=== PATIENT | male | born 1955 | race Caucasian/White ===

== ENCOUNTER 2017-04-21 06:53 | Day surgery (SDC) | payer OTHER ==
[2017-04-21] VITALS (11 sets, daily range): BP systolic 126–149; BP diastolic 64–82
[~2017-04-21] VITALS: Ht 193 cm; Wt 104.3 kg
[~2017-04-21 06:53] MED LIST: ACET-93 PO; ASP81TEC PO; ASPI-983 PO; ASPI-999 PO; CLOP75TA69 PO; GABA-488 PO; LISI10TA2 PO; METF500T4 PO; METO-333 PO; MTF500T PO; MULT-608 PO; NAPR500T4 PO; NF-ESOM40C PO; SILD50TA PO; SMV20T PO; VARE1TAB22 PO
[2017-04-21] MEDS ORDERED: HEParin (CATH LAB) 2,000 ML IV ONE (07:01)
[2017-04-21] MEDS ORDERED: LIDOCAINE 1% INJ 50 ML (XYLOCAINE) VIAL ONE (07:01)
[2017-04-21] MEDS ORDERED: NS IV 1000 ML 1,000 ML ONE (07:01)
[2017-04-21] MEDS ORDERED: NS IV 1000 ML 1,000 ML IV SCH ×2 (07:15→10:59)
[2017-04-21 07:32] LABS: HEMOGLOBIN 14.4 G/DL (13.3-17.7); RED BLOOD COUNT 4.45 10^6/uL (4.35-5.85); WHITE BLOOD COUNT 8.2 10^3/uL (4.3-11.0)
[2017-04-21 07:40] LABS: INR 1.1 (0.8-1.4); PROTHROMBIN TIME PATIENT 13.9 SEC (12.2-14.7)
[2017-04-21 07:48] LABS: ALANINE AMINOTRANSFERASE 30 U/L (0-55); ALBUMIN 4.3 GM/DL (3.2-4.5); ALKALINE PHOSPHATASE 56 U/L (40-136); BILIRUBIN,TOTAL 0.6 MG/DL (0.1-1.0); BUN/CREATININE RATIO 22; CALCIUM 9.4 MG/DL (8.5-10.1); CARBON DIOXIDE 24 MMOL/L (21-32); CHLORIDE 104 MMOL/L (98-107); CHOLESTEROL 118 MG/DL (< 200); CREATININE SERUM 1.09 MG/DL (0.60-1.30); GFR ESTIMATED > 60; GLUCOSE 164 MG/DL (70-105); HDL CHOLESTEROL 28 MG/DL (40-60); POTASSIUM 3.9 MMOL/L (3.6-5.0); SODIUM 139 MMOL/L (135-145); TOTAL PROTEIN 7.9 GM/DL (6.4-8.2); TRIGLYCERIDES 187 MG/DL (<150); VLDL CHOLESTEROL 37 MG/DL (5-40)
[2017-04-21] MEDS ORDERED: METF500T4 PO (07:50)
[2017-04-21] MEDS ORDERED: SERT50TA2 PO (07:50)
[2017-04-21] MEDS ORDERED: diphenhydrAMINE 50 MG/ML INJ (BENADRYL) ONE (07:59)
[2017-04-21] MEDS ORDERED: MIDAZOLAM 5 MG/5 ML (VERSED) VIAL ONE (07:59)
[2017-04-21] MEDS ORDERED: fentaNYL INJECTION 100 MCG/2 ML AMP ONE (07:59)
[2017-04-21] MEDS ORDERED: NITROGLYCERIN DRIP 25 MG/D5W 250 ML IV ONE (08:36)
[2017-04-21] MEDS ORDERED: HEParin 1000 UNIT/ML (10ML VIAL) FOR BOLUS ONE (08:36)
[2017-04-21] MEDS ORDERED: CLOPIDOGREL 300 MG (PLAVIX) TABLET PO ONE (10:36)
[2017-04-21] MEDS ORDERED: ASPIRIN 81 MG CHEW (CHILDREN'S ASA) ONE (10:36)
--- NOTE | 2017-04-21 10:59 | Cardiac Procedure Note-CS/ASA ---
Pre-Procedure Note Pre-Op Procedure Note H&P Reviewed The H&P was reviewed, patient examined and no changes noted. Date H&P Reviewed: Apr 21, 2017 Time H&P Reviewed: 08:00 Conscious Sedation Pre-Proced Time Reviewed: 08:00 ASA Class: 3 Airway Mallampati Classification: (upper mattaponi appropriate class) I. II. III, IV Lungs Heart ASA score ASA 1: a normal healthy patient ASA 2: a patient with a mild systemic disease (mid diabetes, controlled hypertension, obesity ASA 3: a patient with a severe systemic disease that limits activity (angina , COPD, prior Myocardial infarction) ASA 4: a patient with an incapacitating disease that is a constant threat to life (CHF, renal failure) ASA 5: a moribund patient not expected to survive 24 hrs. (ruptured aneurysm) ASA 6: a declared brain patient whose organs are being harvested. For emergent operations, add the letter E after the classification Grade 3 Sedation Plan: Analgesia, Amnesia, Plan communicated to team members, Discussed options with patient/fam, Discussed risks with patient/fam Note The patient is an appropriate candidate to undergo the planned procedure, sedation, and anesthesia. The patient immediately re-assessed prior to indication. JOSE SEALS MD FACP FAC CCDS Apr 21, 2017 10:59
[2017-04-21] MEDS ORDERED: GABAPENTIN 300 MG (NEURONTIN) CAP PO PRN (11:00)
[2017-04-21] MEDS ORDERED: PATIENT MAY USE OWN MEDS, ALL PO SCH (11:00)
[2017-04-21] MEDS ORDERED: ACETAMINOPHEN 325 MG TABLET/CAPLET (TYLENOL) PO PRN (11:00)
--- NOTE | 2017-04-21 13:32 | CARDIAC CATHETERIZATION ---
DATE OF SERVICE: 04/21/2017 PERIPHERAL ANGIOGRAPHY AND INTERVENTION REPORT The patient is a 62-year-old man with a known history of peripheral arterial disease. In 2016, he has had percutaneous intervention to the left superficial femoral artery consisting of overlapping Supera stents. He is known to have 3 overlapping Supera, 5.5 x 150 mm stents in the left femoral artery. He has been having leg claudication, significantly more on the left side. Peripheral angiography was carried out today. Informed consent was obtained for abdominal aortic and peripheral angiography and possible ad hoc peripheral intervention. PROCEDURE: He was brought to the cardiac catheterization laboratory in a fasting state. Right groin was prepared and draped in the usual sterile fashion. Lidocaine 1% was used for local anesthesia. Modified Seldinger technique was used to advance a 6-Danish sheath into the right femoral artery. We advanced a 6-Danish pigtail catheter and placed it in the abdominal aorta at the level of L1 and abdominal aortic angiography was performed. We then pulled the catheter back to the level just above the aortoiliac bifurcation and left lower limb arterial circulation angiography was carried out with runoff down to the level of the ankle. We then proceeded with selective angiography of the left superficial femoral artery. For this purpose, we used a crossover catheter and we were able to advance a 0.035 inch wire into the left superficial femoral artery and the crossover catheter was removed. Over the catheter, we exchanged the short sheath for a 55 cm long sheath, which was advanced to the level of the proximal superficial femoral artery. We then used a micro catheter that was advanced over 0.035 inch wire and the microcatheter was placed in the proximal to mid left superficial femoral artery and we carried out selective angiography of the left superficial femoral artery, which indicated that there was complete occlusion within the stented portion of the left superficial femoral artery. PERCUTANEOUS INTERVENTION TO THE LEFT SUPERFICIAL FEMORAL AND THE LEFT POPLITEAL ARTERIES: Following completion of the diagnostic procedure, we kept the microcatheter in place and advanced a Command wire through the microcatheter. We were able to advance the advance wire across the complete occlusion in the mid and distal portion of the standard portion of the left superficial femoral artery with moderate difficulty. The tip of the wire was placed in the left peroneal artery. We removed the microcatheter and carried out balloon angioplasty in multiple locations with a 4-mm balloon. This balloon angioplasty included the entire length of the occluded portion of the stent. Subsequent angiography revealed that there was still significant stenosis in the mid portion of the stent placed in 2016. We then carried out balloon angioplasty successfully with 5.0 mm and 6.0 mm balloons, but the result remained suboptimal. It appeared that there was a focal stenosis of the standard portion of the left superficial femoral artery. At this spot, we placed an Absolute Pro 6.0 x 40 mm stent and this was carefully deployed and subsequently post-dilated with a 6 mm balloon. This resulted in good antegrade flow distally. There was area of stenosis and probable dissection in the left popliteal artery. Here, we carried out balloon angioplasty with 6.0 x 40 mm at different spots. Following long balloon inflations, the stenosis and the left popliteal was reduced from 90% to less than 30% and the dissection appeared well tacked and the distal flow was good. Because of good results in the left popliteal artery, we chose not to put a stent in the popliteal artery. CONCLUSIONS: Complete occlusion(intra-stent) within the left superficial femoral artery to which successful balloon angioplasty and stenting (Absolute Pro 6.0 x 40 mm) was carried out with reduction of stenosis to less than 30% throughout the stented vessel. Also, there was 90% stenosis within the proximal and mid popliteal artery to which successful balloon angioplasty was carried out for reduction of stenosis to less than 30%. Job ID: [id number] DocumentID: [id number] Dictated Date: 04/21/2017 10:43:30 Orthopedic Shoe Fitter Date: 04/21/2017 12:47:13 Dictated By: JOSE SEALS MD, MA, FACP, FACC, MTDD
[2017-04-21] MEDS: inSUlin (REGULAR) HUMAN 1 UNIT/0.01 ML (CHARGE PER UNIT) SC SCH ×2 (16:55→20:30)
[2017-04-21] MEDS: meTOprolol TARTRATE 25 MG (LOPRESSOR) TABLET PO SCH (20:34)
[2017-04-21] MEDS ORDERED: SIMvastatin 20 MG (ZOCOR) TAB PO SCH (21:00)
[2017-04-22] VITALS: BP 123/74
[2017-04-22 04:15] VITALS: BP 134/73
[2017-04-22] MEDS: inSUlin (REGULAR) HUMAN 1 UNIT/0.01 ML (CHARGE PER UNIT) SC SCH (05:48)
[2017-04-22 05:53] LABS: HEMOGLOBIN 13.7 G/DL (13.3-17.7); MEAN PLATELET VOLUME 10.9 FL (7.4-10.4); RED BLOOD COUNT 4.26 10^6/uL (4.35-5.85); RED CELL DISTRIBUTION WIDTH 14.1 % (10.0-14.5); WHITE BLOOD COUNT 5.5 10^3/uL (4.3-11.0)
[2017-04-22 06:13] LABS: BUN/CREATININE RATIO 20; CALCIUM 8.7 MG/DL (8.5-10.1); CARBON DIOXIDE 22 MMOL/L (21-32); CHLORIDE 104 MMOL/L (98-107); GFR ESTIMATED > 60; GLUCOSE 122 MG/DL (70-105); POTASSIUM 4.1 MMOL/L (3.6-5.0); SODIUM 138 MMOL/L (135-145)
[2017-04-22] MEDS ORDERED: PANTOPRAZOLE 40 MG (PROTONIX) TAB PO SCH (07:00)
[2017-04-22] MEDS ORDERED: MULTIVIT W/MINERALS TAB (THERAGRAN M) PO SCH (07:00)
--- NOTE | 2017-04-22 07:56 | Progress Note-Cardiology ---
Cardiology SOAP Progress Note Objective: I&O/Vital Signs Vital Sign - Last 12Hours 04/21/17 04/22/17 04/22/17 04/22/17 20:54 00:00 01:00 04:15 Temp 98.0 98.0 97.1 Pulse 67 74 71 68 Resp 14 18 20 B/P (MAP) 132/64 (86) 123/74 (90) 134/73 (93) Pulse Ox 92 94 96 O2 Delivery Room Air Room Air Room Air Intake and Output 04/22/17 00:00 Intake Total 1820 ml Balance 1820 ml Weight (Pounds): 230 Weight (Ounces): 0.0 Weight (Calculated Kilograms): 104.152176 Results/Procedures: Labs Laboratory Tests 04/21/17 15:24: Glucometer 89 04/21/17 20:14: 04/22/17 05:16: Glucometer 146H 04/22/17 05:41: White Blood Count 5.5, Red Blood Count 4.26L, Hemoglobin 13.7, Hematocrit 38L, Mean Corpuscular Volume 90, Mean Corpuscular Hemoglobin 32, Mean Corpuscular Hemoglobin Concent 36, Red Cell Distribution Width 14.1, Platelet Count 107L, Mean Platelet Volume 10.9H, Sodium Level 138, Potassium Level 4.1, Chloride Level 104, Carbon Dioxide Level 22, Anion Gap 12, Blood Urea Nitrogen 16, Creatinine 0.80, Estimat Glomerular Filtration Rate > 60, BUN/Creatinine Ratio 20, Glucose Level 122H, Calcium Level 8.7 A/P: Assessment: PAD - H/O stenting (3 overlapping Supera 5.5x150 mm stents) of the L sup fem on 08/21/15 with 3-vessel distal runoff. On the R, he is known to have multiple 50% stenoses of the sup fem and occlusion of the R peroneal. Per most recent peripheral angio of 04-21-17: Complete occlusion(intra-stent) within the left superficial femoral artery to which successful balloon angioplasty and stenting (Absolute Pro 6.0 x 40 mm) was carried out with reduction of stenosis to less than 30% throughout the stented vessel. Also, there was 90% stenosis within the proximal and mid popliteal artery to which successful balloon angioplasty was carried out for reduction of stenosis to less than 30%. CAD. Cath of 05/07/[address] Goel showed 1-V disease (LCx). MPI of 09/25/15 shows no ischemia or infarction (LVEF 54%) Exertional shortness of breath Hypertension DM II Chronic tobacco use, continuing Hyperlipidemia, treated with statins and managed by his pcp Sleep apnea suspected, but he refuses studies COPD Mild carotid arterial disease on carotid u/s of 10/19/15 JAVIER VALLES Apr 22, 2017 07:56
[2017-04-22] MEDS: meTOprolol TARTRATE 25 MG (LOPRESSOR) TABLET PO SCH (07:58)
[2017-04-22 08:00] VITALS: BP 156/81
--- NOTE | 2017-04-22 08:29 | Progress Note-Cardiology ---
Cardiology SOAP Progress Note Subjective: No leg discomfort or groin discomfort Denies cp or palp or syncope Objective: I&O/Vital Signs Vital Sign - Last 12Hours 04/21/17 04/22/17 04/22/17 04/22/17 20:54 00:00 01:00 04:15 Temp 98.0 98.0 97.1 Pulse 67 74 71 68 Resp 14 18 20 B/P (MAP) 132/64 (86) 123/74 (90) 134/73 (93) Pulse Ox 92 94 96 O2 Delivery Room Air Room Air Room Air Intake and Output 04/22/17 00:00 Intake Total 1820 ml Balance 1820 ml Weight (Pounds): 230 Weight (Ounces): 0.0 Weight (Calculated Kilograms): 104.502748 Groin site without hematoma: Yes Condition: DP/PT pulses palpable Bruising: mild bruising Constitutional: AAO x 3, well-developed, well-nourished Respiratory: No accessory muscle use, lungs clear to percussion, other (good bilat air entry; somewhat prolonged exp phase) Cardiovascular: regular rate-rhythm, S1 and S2, systolic murmur Gastrointestional: No tender, soft, No guarding, No rebound, audible bowel sounds Extremities: No clubbing, No cyanosis, No significant edema Neurologic/Psychiatric: oriented x 3, grossly intact, power is 5/5 both on sides Skin: No rash on exposed areas, No ulcerations on exposed areas Results/Procedures: Labs Laboratory Tests 04/21/17 15:24: Glucometer 89 04/21/17 20:14: 04/22/17 05:16: Glucometer 146H 04/22/17 05:41: White Blood Count 5.5, Red Blood Count 4.26L, Hemoglobin 13.7, Hematocrit 38L, Mean Corpuscular Volume 90, Mean Corpuscular Hemoglobin 32, Mean Corpuscular Hemoglobin Concent 36, Red Cell Distribution Width 14.1, Platelet Count 107L, Mean Platelet Volume 10.9H, Sodium Level 138, Potassium Level 4.1, Chloride Level 104, Carbon Dioxide Level 22, Anion Gap 12, Blood Urea Nitrogen 16, Creatinine 0.80, Estimat Glomerular Filtration Rate > 60, BUN/Creatinine Ratio 20, Glucose Level 122H, Calcium Level 8.7 Laboratory Tests 04/21/17 07:22 04/22/17 05:41 A/P: Assessment: PAD - H/O stenting (3 overlapping Supera 5.5x150 mm stents) of the L sup fem on 08/21/15 with 3-vessel distal runoff. On the R, he is known to have multiple 50% stenoses of the sup fem and occlusion of the R peroneal. Per most recent peripheral angio of 04-21-17: Complete occlusion (intra-stent) within the left superficial femoral artery to which successful balloon angioplasty and stenting (Absolute Pro 6.0 x 40 mm) was carried out with reduction of stenosis to less than 30% throughout the stented vessel. Also, there was 90% stenosis within the proximal and mid popliteal artery to which successful balloon angioplasty was carried out for reduction of stenosis to less than 30%. CAD. Cath of 05/07/[address] Goel showed 1-V disease (LCx). MPI of 09/25/15 shows no ischemia or infarction (LVEF 54%) Exertional shortness of breath Hypertension DM II Chronic tobacco use, continuing Hyperlipidemia, treated with statins and managed by his pcp Sleep apnea suspected, but he refuses studies COPD Mild carotid arterial disease on carotid u/s of 10/19/15 Plan: * We had a long discussion regarding the findings at angio, interventions, undertaken and future plan * The most important part of his management at this time is risk factor modification, in particular immediate and complete smoking cessation. This was discussed in detail and emphasized * We discussed pros and cons of current regimen * We advised compliance with meds and clinical f/u * Close clinical f/u is recommended for now * I also spoke in detail with his and answered questions JOSE SEALS MD FACP FAC CCDS Apr 22, 2017 8:29 am
--- NOTE | 2017-04-22 08:35 | Discharge Inst-Post CATH ---
Discharge Inst-CATH Post Cardiac Cath D/C Inst Follow Up/Plan F/u with Dr Boyce in one week CARDIAC CATH DISCHARGE INSTRUCTIONS *Hold Metformin for 48 hours post heart cath. ACTIVITY * Go Home directly and rest. * Limit activity of the leg (or wrist if it was used) for 7 days including aerobics, swimming, jogging, bicycling, etc. * Restrict stair-climbing for 7 days if possible, if not, climb up with your non -cath leg, then bring together on the same step. * Avoid lifting, pushing, pulling or excessive movement of the affected extremity for 7 days. * Customary sexual activity may be resumed after 2 days-use caution not to use a position that strains or causes pain to the affected extremity. * No driving for 24 hours. * NO SMOKING. * Avoid straining for bowel movements for 7 days. * Gentle walking on level ground is allowed. * Returning to work will depend on the type of procedure and the results. Your doctor will discuss this with you. CALL YOUR DOCTOR FOR ANY OF THE FOLLOWING: *If bleeding from the puncture site occurs- Apply gentle pressure to site with clean cloth and call your doctor or EMS. * If a knot or lump forms under the skin, increases in size, or causes pain. * If bruising appears to be worsening or moving further down your leg instead of disappearing. * Temperature above 101 F. CARE OF YOUR GROIN INCISION; * Bruising or purple discoloration of the skin near the puncture site is common. * You may shower only, no bathtub bathing for 5 days. Be careful to avoid slipping as your leg may feel stiff. * If a closure device was used on your femoral artery, please see the attached guide regarding care of the device and your leg. * REMOVE the dressing from your groin the next day after your procedure in the shower. CARE OF YOUR WRIST INCISION; * Bruising or purple discoloration of the skin near the puncture site is common. * You may shower. * DO NOT submerge wrist. * Remove dressing in 24 hours. JOSE BOYCE MD [facility] CCDS Apr 22, 2017 08:35
--- NOTE | 2017-04-22 08:35 | Discharge Inst-Cardiology ---
Discharge Inst-Cardiac Discharge Medications Continued Medications: Aspirin (Aspirin) 81 Mg Tab.chew 81 MG PO DAILY, #30 TAB 5 Refills Clopidogrel Bisulfate (Plavix) 75 Mg Tablet 75 MG PO DAILY, #30 TAB 5 Refills Esomeprazole Magnesium (Nexium) 40 Mg Cap 40 MG PO DAILY Gabapentin (Gabapentin) 300 Mg Capsule 300 MG PO TID PRN for PAIN LAST FILLED 05-31-15 Lisinopril (Lisinopril) 10 Mg Tablet 10 MG PO DAILY Metformin HCl (Metformin HCl) 500 Mg Tablet 500 MG PO BID, TAB Metoprolol Tartrate (Lopressor 25 Mg Tab) 25 Mg Tablet 25 MG PO BID Multivitamins (Multiple Vitamin) 1 Tab Tablet 1 TAB PO DAILY Naproxen (Naproxen) 500 Mg Tablet 500 MG PO BID Sertraline HCl (Zoloft) 50 Mg Tablet 50 MG PO DAILY, TAB Sildenafil Citrate (Viagra) 50 Mg Tablet 50 MG PO DAILY PRN for ED Simvastatin (Zocor) 20 Mg Tab 20 MG PO HS Patient Instructions Patient Instructions: HOLD METFORMIN UNTIL THE EVENING OF 04/23/17 Activity & Diet Discharge Diet: ADA Diet (1500 kCal) JOSE SEALS MD FACP FACC CCDS Apr 22, 2017 08:35
[2017-04-22] MEDS ORDERED: lisINopril 10 MG (PRINIVIL) TABLET PO SCH (09:00)
[2017-04-22] MEDS ORDERED: ASPIRIN 81 MG CHEW (CHILDREN'S ASA) PO SCH (09:00)
[2017-04-22] MEDS ORDERED: NON-FORMULARY MEDICATION 1 EA EA (Multivitamins (Multiple Vitamin) 1 TAB) PO SCH (09:00)
[2017-04-22] MEDS ORDERED: CLOPIDOGREL 75 MG (PLAVIX) TABLET PO SCH (09:00)
[2017-04-22] MEDS ORDERED: SERTRALINE 50 MG (ZOLOFT) TABLET PO SCH (09:00)
[2017-04-22] MEDS ORDERED: NON-FORMULARY MEDICATION 1 EA EA (Esomeprazole Magnesium (Nexium) 40 MG) PO SCH (09:00)
== END 2017-04-22 10:33 | disposition home or self-care (01) ==
LOC: CATH 06:53 → SURG 11:01 → 4TH 15:21 → CATH 04-22 10:33
PROVIDERS: ATTEND Nurse Practitioner Family
DX: I70.212 Atherosclerosis of native arteries of extremities with intermittent claudication, left leg (principal); T82.856A Stenosis of peripheral vascular stent, initial encounter; I25.10 Atherosclerotic heart disease of native coronary artery without angina pectoris; E11.9 Type 2 diabetes mellitus without complications; E78.5 Hyperlipidemia, unspecified; I10 Essential (primary) hypertension; G47.30 Sleep apnea, unspecified; F17.210 Nicotine dependence, cigarettes, uncomplicated; Z79.82 Long term (current) use of aspirin; Z79.84 Long term (current) use of oral hypoglycemic drugs; Z79.899 Other long term (current) drug therapy
CPT/HCPCS: 36415; 75625; 80048; 80053; 80061; 82962; 85027; 85610; 85730; 87081; 93005

== ENCOUNTER 2019-06-21 09:07 | Day surgery (SDC) | payer OTHER ==
[2019-06-21] VITALS (8 sets, daily range): BP systolic 144–160; BP diastolic 71–109
[~2019-06-21] VITALS: Ht 193 cm; Wt 101.4 kg
[~2019-06-21 09:07] MED LIST changes: +METF-397 PO; -METF500T4 PO; +NAPR-915 PO; -NAPR500T4 PO; +SERT50TA2 PO
[2019-06-21] MEDS ORDERED: LIDOCAINE 1% INJ 20 ML 20 ML VIAL ONE (09:21)
[2019-06-21] MEDS ORDERED: HEParin (CATH LAB) 2,000 ML IV ONE (09:21)
[2019-06-21] MEDS ORDERED: NS IV 1000 ML 1,000 ML ONE (09:21)
[2019-06-21 09:56] LABS: HEMOGLOBIN 14.9 G/DL (13.3-17.7); MEAN PLATELET VOLUME 11.9 FL (7.4-10.4); RED CELL DISTRIBUTION WIDTH 14.4 % (10.0-14.5); WHITE BLOOD COUNT 6.7 10^3/uL (4.3-11.0)
[2019-06-21] MEDS: NS IV 1000 ML 1,000 ML IV SCH ×3 (10:02→19:39)
[2019-06-21] MEDS ORDERED: CALC-794 PO (10:07)
[2019-06-21 10:08] LABS: PROTHROMBIN TIME PATIENT 13.7 SEC (12.2-14.7)
[2019-06-21 10:12] LABS: CHLORIDE 104 MMOL/L (98-107); SODIUM 140 MMOL/L (135-145)
[2019-06-21 10:13] LABS: ALBUMIN 4.2 GM/DL (3.2-4.5)
[2019-06-21 10:14] LABS: CALCIUM 9.4 MG/DL (8.5-10.1); TRIGLYCERIDES 236 MG/DL (<150); VLDL CHOLESTEROL 47 MG/DL (5-40)
[2019-06-21 10:15] LABS: GLUCOSE 172 MG/DL (70-105)
[2019-06-21 10:16] LABS: CARBON DIOXIDE 22 MMOL/L (21-32)
[2019-06-21 10:17] LABS: BILIRUBIN,TOTAL 0.6 MG/DL (0.1-1.0)
[2019-06-21 10:19] LABS: ALKALINE PHOSPHATASE 47 U/L (40-136); CHOLESTEROL 124 MG/DL (< 200); CREATININE SERUM 1.11 MG/DL (0.60-1.30); GFR ESTIMATED > 60
[2019-06-21 10:20] LABS: BUN/CREATININE RATIO 15
[2019-06-21 10:21] LABS: HDL CHOLESTEROL 31 MG/DL (40-60)
[2019-06-21 10:22] LABS: ALANINE AMINOTRANSFERASE 30 U/L (0-55)
[2019-06-21] MEDS ORDERED: fentaNYL INJECTION 100 MCG/2 ML AMP ONE (11:54)
[2019-06-21] MEDS ORDERED: MIDAZOLAM 5 MG/5 ML (VERSED) VIAL ONE (11:54)
--- NOTE | 2019-06-21 12:45 | Cardiac Procedure Note-CS/ASA ---
Pre-Procedure Note Pre-Op Procedure Note H&P Reviewed The H&P was reviewed, patient examined and no changes noted. Date H&P Reviewed: Jun 21, 2019 Time H&P Reviewed: 12:44 Conscious Sedation Pre-Proced Time 12:44 ASA Score 3 For ASA 3 and 4: Consider anesthesia and medical clearance. Also, for patients with a history of failed moderate sedation consider anesthesia. Airway Lungs Heart ASA score ASA 1: a normal healthy patient ASA 2: a patient with a mild systemic disease (mid diabetes, controlled hypertension, obesity ASA 3: a patient with a severe systemic disease that limits activity (angina, COPD, prior Myocardial infarction) ASA 4: a patient with an incapacitating disease that is a constant threat to life (CHF, renal failure) ASA 5: a moribund patient not expected to survive 24 hrs. (ruptured aneurysm) ASA 6: a declared brain- patient whose organs are being harvested. For emergent operations, add the letter E after the classification Mallampati Classification Grade 2 Sedation Plan Analgesia, Amnesia, Plan communicated to team members, Discussed options with patient/fam, Discussed risks with patient/fam The patient is an appropriate candidate to undergo the planned procedure, sedation, and anesthesia. The patient immediately re-assessed prior to indication. JOSE SEALS MD FACP FAC CCDS Jun 21, 2019 12:44
[2019-06-21] MEDS ORDERED: HEParin 1000 UNIT/ML (10ML VIAL) FOR BOLUS ONE (13:12)
[2019-06-21] MEDS ORDERED: ASPIRIN 81 MG CHEW (CHILDREN'S ASA) ONE (13:51)
[2019-06-21] MEDS ORDERED: CLOPIDOGREL 300 MG (PLAVIX) TABLET PO ONE (13:51)
--- NOTE | 2019-06-21 14:10 | Cardiology History & Physical ---
HPI-Cardiology Cardiology H&P Date of Admission 06-21-2019 Primary Care Physician Cameron Guy MD Attending Physician Reno Boyce MD [facility] [employer]cds Consulting Physician JOCY New onset claudication of approx a block or less. Right leg worse than left. He has a known h/o PAD and continues to smoke cigs. We advise further eval with a peripheral angiogram with possible ad hoc peripheral intervention. We have discussed the procedures, risks and benefits. He verbalizes understanding and wishes to proceed. No c/o CP, palpitations, syncope or near syncope. No c/o LE swelling. Chronic mild to mod HINOJOSA, which is unchanged in the recent past. Review of Systems-Cardiology Review of Systems Constitutional: No chills, No fever Eyes: No vision change Ears/Nose/Throat: No epistaxis, No recent hearing loss Respiratory: As described under HPI Cardiovascular: As described under HPI Gastrointestinal: No constipation, No diarrhea, No nausea, No vomiting Genitourinary: No dysuria, No hematuria Musculoskeletal: no symptoms reported Skin: No rash on exposed areas, No ulcerations on exposed areas Psychiatric/Neurological: No anxiety, No depression, No seizure, No syncope Hematologic: No bleeding abnormalities ILI-Aovxla-Dntkum Hx Patient Social History Alcohol Use: Denies Use Recreational Drug Use: No Smoking Status: Current Everyday Smoker Type Used: Cigarettes Recent Foreign Travel: No Immunizations Up To Date Date of Influenza Vaccine: Dec 20, 2018 Past Medical History PMH As described under Assessment. Family Medical History Family Medical History: No reported family h/o CAD. Allergies and Home Medications Allergies Coded Allergies: Penicillins (Unverified Allergy, Unknown, 05/06/10) Home Medications Aspirin 81 Mg Tab.chew, 81 MG PO DAILY Prescribed by: RENO BOYCE on 08/21/15 1204 Calcium Carb & Citrate/Vit D3 1 Each Tablet.er, 1 EACH PO DAILY, (Reported) Clopidogrel Bisulfate 75 Mg Tablet, 75 MG PO DAILY Prescribed by: ERNO BOYCE on 08/21/15 1204 Esomeprazole Magnesium 40 Mg Cap, 40 MG PO DAILY, (Reported) Gabapentin 300 Mg Capsule, 300 MG PO TID PRN for PAIN, (Reported) LAST FILLED 05-31-15 Lisinopril 10 Mg Tablet, 10 MG PO DAILY, (Reported) Metformin HCl 500 Mg Tablet, 1,000 MG PO BID, (Reported) Metoprolol Tartrate 25 Mg Tablet, 25 MG PO BID, (Reported) Multivitamins 1 Tab Tablet, 1 TAB PO DAILY, (Reported) Naproxen 500 Mg Tablet, 500 MG PO BID, (Reported) Sertraline HCl 50 Mg Tablet, 100 MG PO DAILY, (Reported) Sildenafil Citrate 50 Mg Tablet, 50 MG PO DAILY PRN for ED, (Reported) Simvastatin 20 Mg Tab, 20 MG PO HS, (Reported) Patient Home Medication List Home Medication List Reviewed: Yes Physical Exam-Cardiology Physical Exam Vital Signs/I&O 06/21/19 06/22/19 06/22/19 06/22/19 23:48 00:47 03:21 06:43 Temp 36.4 Pulse 82 77 77 88 Resp 20 18 B/P (MAP) 160/81 (107) 167/90 (115) Pulse Ox 95 96 O2 Delivery Room Air Room Air 06/22/19 06/22/19 08:00 08:55 Temp 36.4 Pulse 75 Resp 12 B/P (MAP) 148/85 (106) Pulse Ox 95 O2 Delivery Room Air Capillary Refill : Constitutional: well-developed, well-nourished HEENT: PERRL, hearing is well preserved, oral hygience is good Neck: No carotid bruit; carotid pulses are 2 + bilaterally Respiratory: No accessory muscle use, No respiratory distress; chest expansion is symmetric, chest is bilaterally symmetric, other (prolonged exp phase with scattered rhonchi) Cardiovascular: regular rate-rhythm; No JVD; S1 and S2 Gastrointestinal: No tender; soft, round, audible bowel sounds Extremities: no lower extremity edema bilateral Neurologic/Psychiatric: grossly intact (moves all extremities) Skin: No rash on exposed areas, No ulcerations on exposed areas Data Review Labs Laboratory Tests 06/21/19 20:21: Glucometer 170H 06/22/19 03:00: White Blood Count 6.5, Red Blood Count 4.43, Hemoglobin 13.9, Hematocrit 40, Mean Corpuscular Volume 90, Mean Corpuscular Hemoglobin 31, Mean Corpuscular Hemoglobin Concent 35, Red Cell Distribution Width 14.6H, Platelet Count 78L, Mean Platelet Volume 11.4H, Sodium Level 138, Potassium Level 3.9, Chloride Level 105, Carbon Dioxide Level 21, Anion Gap 12, Blood Urea Nitrogen 16, Creatinine 0.98, Estimat Glomerular Filtration Rate > 60, BUN/Creatinine Ratio 16, Glucose Level 131H, Calcium Level 8.8 A/P-Cardiology Assessment/Admission Diagnosis Recurrent bilat leg claudication of less than a block, R>L PAD. S/p stenting (3 overlapping Supera 5.5x150 mm stents) of the L sup fem on 08/21/15 with 3-vessel distal runoff. On the R, he is known to have multiple 50% stenoses of the sup fem and occlusion of the R peroneal. Most recent peripheral angio of Apr 21, 2017: complete occlusion (intra-stent) within the left superficial femoral artery to which successful balloon angioplasty and stenting (Absolute Pro 6.0 x 4.0 mm) was carried out with reduction of stenosis to less than 30% throughout the stented vessel. Also, there was 90% stenosis within the prox and mid popliteal artery to which successful balloon angioplasty was carried out for reduction of stenosis to less than 30% CAD. Cath of 05/07/[address] Goel showed 1-V disease (LCx). MPI of 09/25/15 shows no ischemia or infarction (LVEF 54%) Exertional shortness of breath, chronic and unchanged, likely d/t COPD Hypertension DM II Chronic tobacco use, continuing Hyperlipidemia, treated with statins and managed by his pcp Sleep apnea suspected, but he refuses studides COPD Mild carotid arterial disease on carotid u/s of 10/19/15 Admission Status: Observation JAVIER VALLES Jun 21, 2019 14:10
--- NOTE | 2019-06-21 14:17 | Discharge Inst-Cardiology ---
Discharge Inst-Cardiac Discharge Medications Continued Medications: Aspirin (Aspirin) 81 Mg Tab.chew 81 MG PO DAILY, #30 TAB 5 Refills Calcium Carb & Citrate/Vit D3 (Calcium + D3 ER Tablet) 1 Each Tablet.er 1 EACH PO DAILY, TAB Clopidogrel Bisulfate (Plavix) 75 Mg Tablet 75 MG PO DAILY, #30 TAB 5 Refills Esomeprazole Magnesium (Nexium) 40 Mg Cap 40 MG PO DAILY Gabapentin (Gabapentin) 300 Mg Capsule 300 MG PO TID PRN for PAIN LAST FILLED 05-31-15 Lisinopril (Lisinopril) 10 Mg Tablet 10 MG PO DAILY Metformin HCl (Metformin HCl) 500 Mg Tablet 1000 MG PO BID, TAB Metoprolol Tartrate (Lopressor 25 Mg Tab) 25 Mg Tablet 25 MG PO BID Multivitamins (Multiple Vitamin) 1 Tab Tablet 1 TAB PO DAILY Sertraline HCl (Zoloft) 50 Mg Tablet 100 MG PO DAILY, TAB Sildenafil Citrate (Viagra) 50 Mg Tablet 50 MG PO DAILY PRN for ED Simvastatin (Zocor) 20 Mg Tab 20 MG PO HS Discontinued Medications: Naproxen (Naproxen) 500 Mg Tablet 500 MG PO BID Patient Instructions Patient Instructions: Hold Metformin dose on 06/21 and 06/22. Restart the morning of 06/24/2019. Please schedule follow up appointment to see Dr. Boyce in 2 weeks JAVIER VALLES Jun 21, 2019 14:17
--- NOTE | 2019-06-21 14:33 | Cardiology History & Physical ---
HPI-Cardiology Cardiology H&P Date of Admission Primary Care Physician Cameron Guy MD Attending Physician Reno Boyce MD, MA FACP [facility] Consulting Physician JOCY 64 yo man who reports bilat leg discomfort that has been worsening over the last several months and that is brought on with walking a block or less and improves with rest. Right leg worse than left. He has a known h/o PAD and continues to smoke cigs. He verbalizes understanding and wishes to proceed. No c/o CP, palpitations, syncope or near syncope. No c/o LE swelling. Chronic mild to mod HINOJOSA, which is unchanged in the recent past. We advisd further eval with a peripheral angiogram with possible ad hoc peripheral intervention. We discussed the procedures, risks and benefits. He had the procedure done today Review of Systems-Cardiology Review of Systems Constitutional: No chills, No fever Eyes: No vision change Ears/Nose/Throat: No epistaxis, No recent hearing loss Respiratory: As described under HPI Cardiovascular: As described under HPI Gastrointestinal: No constipation, No diarrhea, No nausea, No vomiting Genitourinary: No dysuria, No hematuria Musculoskeletal: no symptoms reported Skin: No rash on exposed areas, No ulcerations on exposed areas Psychiatric/Neurological: No anxiety, No depression, No seizure, No syncope Hematologic: No bleeding abnormalities [id number]-Jqdush Hx Patient Social History Alcohol Use: Denies Use Recreational Drug Use: No Smoking Status: Current Everyday Smoker Type Used: Cigarettes Recent Foreign Travel: No Immunizations Up To Date Date of Influenza Vaccine: Dec 20, 2018 Past Medical History PMH As described under Assessment. Family Medical History Family Medical History: No reported family h/o CAD. Allergies and Home Medications Allergies Coded Allergies: Penicillins (Unverified Allergy, Unknown, 05/06/10) Home Medications Aspirin 81 Mg Tab.chew, 81 MG PO DAILY Prescribed by: RENO BOYCE on 08/21/15 1204 Calcium Carb & Citrate/Vit D3 1 Each Tablet.er, 1 EACH PO DAILY, (Reported) Clopidogrel Bisulfate 75 Mg Tablet, 75 MG PO DAILY Prescribed by: RENO BOYCE on 08/21/15 1204 Esomeprazole Magnesium 40 Mg Cap, 40 MG PO DAILY, (Reported) Gabapentin 300 Mg Capsule, 300 MG PO TID PRN for PAIN, (Reported) LAST FILLED 05-31-15 Lisinopril 10 Mg Tablet, 10 MG PO DAILY, (Reported) Metformin HCl 500 Mg Tablet, 1,000 MG PO BID, (Reported) Metoprolol Tartrate 25 Mg Tablet, 25 MG PO BID, (Reported) Multivitamins 1 Tab Tablet, 1 TAB PO DAILY, (Reported) Naproxen 500 Mg Tablet, 500 MG PO BID, (Reported) Sertraline HCl 50 Mg Tablet, 100 MG PO DAILY, (Reported) Sildenafil Citrate 50 Mg Tablet, 50 MG PO DAILY PRN for ED, (Reported) Simvastatin 20 Mg Tab, 20 MG PO HS, (Reported) Patient Home Medication List Home Medication List Reviewed: Yes Physical Exam-Cardiology Physical Exam Vital Signs/I&O 06/21/19 09:55 Temp 36.1 Pulse 80 Resp 20 B/P (MAP) 154/97 (116) Pulse Ox 97 Capillary Refill : Constitutional: well-developed, well-nourished HEENT: PERRL, hearing is well preserved, oral hygience is good Neck: No carotid bruit; carotid pulses are 2 + bilaterally Respiratory: No accessory muscle use, No respiratory distress; chest expansion is symmetric, chest is bilaterally symmetric, other (prolonged exp phase with scattered rhonchi) Cardiovascular: regular rate-rhythm; No JVD; S1 and S2 Gastrointestinal: No tender; soft, round, audible bowel sounds Extremities: no lower extremity edema bilateral Neurologic/Psychiatric: grossly intact (moves all extremities) Skin: No rash on exposed areas, No ulcerations on exposed areas Data Review Labs Laboratory Tests 06/21/19 09:48: White Blood Count 6.7, Red Blood Count 4.67, Hemoglobin 14.9, Hematocrit 42, Mean Corpuscular Volume 89, Mean Corpuscular Hemoglobin 32, Mean Corpuscular Hemoglobin Concent 36, Red Cell Distribution Width 14.4, Platelet Count 100L, Mean Platelet Volume 11.9H, Prothrombin Time 13.7, INR Comment 1.0, Activated Partial Thromboplast Time 33, Sodium Level 140, Potassium Level 4.0, Chloride Level 104, Carbon Dioxide Level 22, Anion Gap 14, Blood Urea Nitrogen 17, Creatinine 1.11, Estimat Glomerular Filtration Rate > 60, BUN/Creatinine Ratio 15, Glucose Level 172H, Calcium Level 9.4, Corrected Calcium 9.2, Total Bilirubin 0.6, Aspartate Amino Transf (AST/SGOT) 35H, Alanine Aminotransferase (ALT/SGPT) 30, Alkaline Phosphatase 47, Total Protein 8.0, Albumin 4.2, Triglycerides Level 236H, Cholesterol Level 124, LDL Cholesterol Direct 60, VLDL Cholesterol 47H, HDL Cholesterol 31L Laboratory Tests 06/21/19 09:48 A/P-Cardiology Assessment/Admission Diagnosis R leg claudication treated successfully with PTCA today (see below) PAD. S/p stenting (3 overlapping Supera 5.5x150 mm stents) of the L sup fem on 08/21/15 with 3-vessel distal runoff, followed by peripheral angio on Apr 21, 2017: complete occlusion (intra-stent) within the left superficial femoral artery to which successful balloon angioplasty and stenting (Absolute Pro 6.0 x 4.0 mm). Also, there was 90% stenosis within the prox and mid popliteal artery to which successful balloon angioplasty was carried out. Most recent peripheral angio 06/21/19: up to 50% instent restenosis on L with 3-vessel runoff; up to 80% distal R SFA stenoses treated successfully with PTCA (6 x 120 mm balloon) with 3-vessel runoff. CAD. Cath of 05/07/[address] Goel showed 1-V disease (LCx). MPI of 09/25/15 shows no ischemia or infarction (LVEF 54%) Exertional shortness of breath, chronic and unchanged, likely d/t COPD Hypertension DM II Chronic tobacco use, continuing, advised to quit Hyperlipidemia, treated with statins and managed by his pcp Sleep apnea suspected, but he refuses studies COPD Mild carotid arterial disease on carotid u/s of 06/20/19 Admission Status: Observation Discussion and Recomendations * I discussed the findings of angio and interventions with him and his in detail * Advised to quit tobacco use, and be compliant with meds and outpt f/u * Admitted for overnight observation RENO BOYCE MD FACP [facility] Jun 21, 2019 14:33
--- NOTE | 2019-06-21 14:42 | Discharge Inst-Post CATH ---
Discharge Inst-CATH/EP Post Cardiac Cath/EP D/C Inst Follow Up/Plan F/u with Dr Boyce in 2 weeks Hold metformin until the evening of 06/23/19, then resume previous home dose ACTIVITY * Go Home directly and rest. * Limit activity of the leg (or wrist if it was used) for 7 days including aerobics, swimming, jogging, bicycling, etc. * Restrict stair-climbing for 7 days if possible, if not, climb up with your non-cath leg, then bring together on the same step. * Avoid lifting, pushing, pulling or excessive movement of the affected extremity for 7 days. * Customary sexual activity may be resumed after 2 days-use caution not to use a position that strains or causes pain to the affected extremity. * No driving for 24 hours. * NO SMOKING. * Avoid straining for bowel movements for 7 days. * Gentle walking on level ground is allowed. * Returning to work will depend on the type of procedure and the results. Your doctor will discuss this with you. CALL YOUR DOCTOR FOR ANY OF THE FOLLOWING: *If bleeding from the puncture site occurs- Apply gentle pressure to site with clean cloth and call your doctor or EMS. * If a knot or lump forms under the skin, increases in size, or causes pain. * If bruising appears to be worsening or moving further down your leg instead of disappearing. * Temperature above 101 F. CARE OF YOUR GROIN INCISION; * Bruising or purple discoloration of the skin near the puncture site is common. * You may shower only, no bathtub bathing for 5 days. Be careful to avoid slipping as your leg may feel stiff. * If a closure device was used on your femoral artery, please see the attached guide regarding care of the device and your leg. * Leave dressing on FOR 24 hours. CARE OF YOUR WRIST INCISION; * Bruising or purple discoloration of the skin near the puncture site is common. * You may shower. * DO NOT submerge wrist. * Leave dressing on FOR 24 hours. JOSE BOYCE MD FACP [facility] Jun 21, 2019 14:41
--- NOTE | 2019-06-21 14:43 | Discharge Inst-Cardiology ---
Discharge Inst-Cardiac Discharge Medications Continued Medications: Aspirin (Aspirin) 81 Mg Tab.chew 81 MG PO DAILY, #30 TAB 5 Refills Calcium Carb & Citrate/Vit D3 (Calcium + D3 ER Tablet) 1 Each Tablet.er 1 EACH PO DAILY, TAB Clopidogrel Bisulfate (Plavix) 75 Mg Tablet 75 MG PO DAILY, #30 TAB 5 Refills Esomeprazole Magnesium (Nexium) 40 Mg Cap 40 MG PO DAILY Gabapentin (Gabapentin) 300 Mg Capsule 300 MG PO TID PRN for PAIN LAST FILLED 05-31-15 Lisinopril (Lisinopril) 10 Mg Tablet 10 MG PO DAILY Metoprolol Tartrate (Lopressor 25 Mg Tab) 25 Mg Tablet 25 MG PO BID Multivitamins (Multiple Vitamin) 1 Tab Tablet 1 TAB PO DAILY Sertraline HCl (Zoloft) 50 Mg Tablet 100 MG PO DAILY, TAB Sildenafil Citrate (Viagra) 50 Mg Tablet 50 MG PO DAILY PRN for ED Simvastatin (Zocor) 20 Mg Tab 20 MG PO HS Discontinued Medications: Metformin HCl (Metformin HCl) 500 Mg Tablet 1000 MG PO BID, TAB Naproxen (Naproxen) 500 Mg Tablet 500 MG PO BID Patient Instructions Patient Instructions: Hold metformin until the evening of 06/23/19, then resume previous home dose JOSE SEALS MD FACP [facility] Jun 21, 2019 14:43
[2019-06-21] MEDS ORDERED: ACETAMINOPHEN 325 MG TABLET PO PRN (14:45)
[2019-06-21] MEDS ORDERED: PATIENT MAY USE OWN MEDS, ALL PO SCH (14:45)
[2019-06-21] MEDS ORDERED: SILDENAFIL CITRATE 50 MG PO PRN (14:45)
[2019-06-21] MEDS ORDERED: GABAPENTIN 300 MG (NEURONTIN) CAP PO PRN (14:45)
[2019-06-21] MEDS: inSUlin ASPART (NovoLOG) 1 UNIT/0.01 ML (CHARGE PER UNIT) SC SCH ×2 (15:52→20:24)
--- OUTSIDE RECORDS SUMMARY | 2019-06-21 16:26 | XMS REPORT ---
Author Author [employer]. Organization [employer]. Address [address] [address] Care Team Providers Care Rides Attendant Name Role Phone LUZMA, MARINO Unavailable Unavailable HUERTER, ELVIN Unavailable Unavailable VILLELA, SIVAKUMAR Unavailable Unavailable ARNEL, ALI Unavailable Unavailable HUERTER, ELVIN F Unavailable HUERTER, ELVIN F Unavailable HUERTER, ELVIN Unavailable LUZMA, MARINO Unavailable HUERTER, ELVIN Unavailable HUERTER, ELVIN Unavailable HUERTER, LEVIN Unavailable LUZMA, MARINO Unavailable HUERTER, ELVIN Unavailable LUZMA, MARINO Unavailable HUERTER, ELVIN Unavailable HUERTER, ELVIN Unavailable HUERTER, ELVIN Unavailable ARNEL, ALI Unavailable HUERTER, ELVIN Unavailable HUERTER, ELVIN Unavailable HUERTER, ELVIN Unavailable HUERTER, ELVIN Unavailable LUZMA, MARINO Unavailable HUERTER, ELVIN Unavailable HUERTER, ELVIN Unavailable LUZMA, MARINO Unavailable HUERTER, ELVIN Unavailable HUERTER, ELVIN Unavailable HUERTER, ELVIN Unavailable Migration, Doctor Unavailable Unavailable Migration, Doctor Unavailable Unavailable HUERTRUBINA, ELVIN Unavailable Migration, Doctor Unavailable Unavailable HUERTER, ELVIN Unavailable SELF, ANISH Unavailable HUERTER, ELVIN Unavailable Migration, Doctor Unavailable Unavailable HUERTER, ELVIN Unavailable HUERTER, ELVIN Unavailable Migration, Doctor Unavailable Unavailable Migration, Doctor Unavailable Unavailable HUERTER, ELVIN Unavailable HUERTER, ELVIN Unavailable HUERTER, ELVIN Unavailable HUERTER, ELVIN Unavailable HUERTER, ELVIN Unavailable HUERTER, ELVIN Unavailable HUERTER, ELVIN Unavailable SELF, ANISH J Unavailable Unavailable Unavailable Unavailable Migration, Doctor Unavailable Unavailable HUERTER, ELVIN Unavailable HUERTER, ELVIN Unavailable HUERTER, ELVIN Unavailable HUERTER, ELVIN Unavailable HUERTER, ELVIN Unavailable HUERTER, ELVIN Unavailable Migration, Doctor Unavailable Unavailable HUERTER, ELVIN Unavailable LUZMA, MARINO Unavailable HUERTER, ELVIN Unavailable HUERTER, ELVIN Unavailable HUERTER, ELVIN Unavailable HUERTER, ELVIN Unavailable Allergies The data below is from unstructured sourcesNo Known Allergies No Known Allergies No Known Allergies No Known Allergies No Known Allergies No Known Allergies No Known Allergies No Known Allergies No Known Allergies No Known Allergies No Known Allergies No Known Allergies No Known Allergies No Known Allergies No Known Allergies No Information No Information No Information No Information No Information No Information No Information No Information No Information No Information No Information No Information No Information No Information No Information No Information No Information No Information No Information No Information No Information No Information No Information No Information No Information No Information No Information No Information No Information No Information No Information No Information No Information No Information No Information No Information No Information No Information No Information No Information No Information No Information No Information No Information No Information No Information No Information No Information No Information No Information No Information No Information No Information No Information No Information No Information No Information No Information No Information No Information No Information No Information No Information No Information No Information No Information No Information No Information No Information No Information No Information No Information No Information No Information No Information No Information No Information No Information No Information No Information No Information No Information No Information No Information No Information No Information No Information No Information No Information No Information No Information No Information Medications Medication Ingredient Drug Dose Dates Status Sig Sig Care Class(es) (Normalized) (Original) Provid er acetaminoph acetaminoph Opioid Active no Hydrocodone- no en 325 mg / en / Agonist information Acetaminophe name HYDROcodone HYDROcodone n 5-325 MG (no bitartrate Translation Orally every phone) 5 mg oral s: [ 6 hrs PRN 1 tablet (1 Hydrocodone tablet as source.) -Acetaminop needed hen 5-325 Active MG] glipiZIDE glipiZIDE Sulfonylure 10 mg 08-25-19 Active no Gl ipiZIDE 10 no 10 mg oral Translation a 18 information mg Orally name tablet (4 s: [ Once a day 1 (no sources.) GlipiZIDE tablet 24h phone) 10 mg, Jul, GlipiZIDE 30 day(s) 10 mg] Active no Multi no Active no Multi no information Vitamin information information Vitamin name (4 Daily - Daily - (no sources.) Translation Orally Once phone) s: [ Multi a day 1 Vitamin tablet 24h Daily -, Active Multi Vitamin Daily -] Problems Active Problems Problem Normalized Date of Normalized Normalized Provider Fac ility Classification Problem(s) Problem Problem Problem Sta tus 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 JAVIER BAIMA Not Avai lable no (current) use (02563) information (3 of aspirin sources.) NEGATED Other long Episodic Active JAVIER BAIMA Not Sun ilable no term (current) (55189) information (3 drug therapy sources.) Past or Other Problems Problem Normalized Date of Normalized Normalized Provider Fac ility Classification Problem(s) Problem Problem Problem Sta tus 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 Duration on NEGATED longterm no information no information JAVIER BAIMA Not Available no (current) use (74009) information (3 of oral sources.) hypoglycemic drugs NEGATED Sleep apnea, no information no information JAVIER BA RAMOS Not Available no unspecified (18938) information (3 sources.) NEGATED Stenosis of no information no information JAVIER THERESE MA Not Available no peripheral (09116) information (3 vascular sources.) stent, initial encounter Procedures Procedure Normalized Procedure Procedure Result Performer Facility Date 08-20-2017 Blood count complete no information no name (no hunter ne) [facility] auto&auto difrntl wbc [facility] ([id number]) 08-20-2017 C-reactive protein no information no name (no phone ) [facility] ([id number]) 08-20-2017 Collection venous no information no name (no phone) [facility] blood venipuncture [facility] (42976) 07-24-2017 Comprehensive no information no name (no phone) [facility] metabolic panel [facility] (80718) 05-07-2018 Debridement nail any no information no name (no hunter ne) [facility] method 6/> [facility] (02124) 11-06-2017 Debridement nail any no information no name (no hunter ne) [facility] method 6/> [facility] (43037) 08-07-2017 Debridement nail any no information no name (no hunter ne) [facility] method 6/> [facility] (74333) 07-23-2017 Hemoglobin no information no name (no phone) [facility] [place] glycosylated a1c [facility] (93800) 07-24-2017 Lipid panel no information no name (no phone) Comm [facility] (44718) 08-20-2017 Urnls dip stick/tablet no information no name (no p lele) [facility] rgnt auto w/o [facility] (38983) Immunizations Normalized Immunization Date Notes Care Provider Facili ty Immunization influenza, 02-07-2019 no information no name [facility] ealth injectable, [facility] quadrivalent, - [facility] contains (73165) preservative influenza, seasonal, 02-15-2018 no information no name [facility] injectable [facility] (86138) pneumococcal 05-11-2018 - no information ANISH SELF [address] [facility] conjugate vaccine, 05-11-2018 [facility]01322[facility] no information 05-11-2018 no information ANISH SELF [address] [facility] (10449[facility] Results Test Name Value Interpretation Reference Range Date Time Fa cility (Normalized) (Normalized) (Medline Reference) ua long dip (in house) on null Glucose Test no information (no code) [facility] (U) [facility] (43646) Protein mass 1+ (no code) [facility] Re[facility] conc (U) [facility] (97484) UA LONG DIP (IN no information (no code) [facility] (70924) UA LONG DIP (IN 6.5 (no code) [facility] (15292) UA LONG DIP (IN 12/17 (no code) [facility] (97034) UA LONG DIP (IN clear (no code) [facility] (76586) UA LONG DIP (IN 1.025 (no code) [facility] (93103) UA LONG DIP (IN 820165 (no code) [facility] (92065) UA LONG DIP (IN trace (no code) [facility] (70389) UA LONG DIP (IN 1.0 (no code) [facility] (12044) UA LONG DIP (IN none (no code) [facility] (82421) UA LONG DIP (IN yellow (no code) [facility] (77023) a1c (in house) on null Hemoglobin 7.6 % (no code) 0 - 5.7 % [facility] A1c/Hemoglobin.t [facility] fraction (Bld) (57713) Hemoglobin 7.2 % (no code) 0 - 5.7 % [facility] A1c/Hemoglobin.t [facility] (Bld) (11610) A1C (IN HOUSE) 0856 (no code) [facility] (20615) A1C (IN HOUSE) 05/2019 (no code) [facility] (13233) No panel information on null Control no information (no code) [facility] (88978) Exp date 09/2021 (no code) [facility] (83250) Lot # [id number] (no code) [facility] (09031) No panel information on 2019-05-05 Albumin 4.0 g/dL (N) 3.4 - 5.4 g/dL [facility] [Mass/Vol] [facility] (75519) Albumin/Globulin 1.4 {ratio} (N) 1 - 2.5 {ratio} Comm [facility] [Mass ratio] [facility] (12026) ALP [Catalytic 57 U/L (N) 44 - 147 U/L [facility] activity/Vol] [facility] (28394) ALT [Catalytic 28 U/L (N) 4 - 40 U/L [facility] ealt activity/Vol] [facility] (50596) AST [Catalytic 32 U/L (N) 10 - 34 U/L [facility] activity/Vol] [facility] (18147) Bilirubin 0.6 mg/dL (N) 0.1 - 1.2 mg/dL [facility] [Mass/Vol] [facility] (78332) Calcium 9.2 mg/dL (N) 8.5 - 10.2 mg/dL [facility] [Mass/Vol] [facility] (60301) Chloride 105 mmol/L (N) 95 - 106 mmol/L [facility] [Moles/Vol] [facility] (03190) CO2 [Moles/Vol] 24 mmol/L (N) 23 - 29 mmol/L [facility] (97094) Creatinine 1.08 mg/dL (N) [facility] [Mass/Vol] [facility] (17686) GFR/1.73 sq M 85 (N) 90 - 120 Community alth predicted among mL/min/{1.73_m2} mL/min/{1.73_m2} [facility] [place] MDRD [facility] (S/P/Bld) [Vol (35979) rate/Area] GFR/1.73 sq 73 (N) 90 - 120 [facility] th M.predicted MDRD mL/min/{1.73_m2} mL/min/{1.73_m2} [facility] (S/P/Bld) [Vol [facility] rate/Area] (42507) Globulin (S) 2.9 g/dL (N) 2 - 3.5 g/dL Community [facility] [Mass/Vol] [facility] (45154) Glucose 181 mg/dL (H) 60 - 125 mg/dL [facility] [Mass/Vol] [facility] (12996) HbA1c (Bld) 6.9 (H) [facility] [Mass fraction] [facility] (41503) Potassium 4.4 mmol/L (N) 3.7 - 5.2 mmol/L [facility] [Moles/Vol] [facility] (35045) Protein 6.9 g/dL (N) 6.4 - 8.3 g/dL [facility] [Mass/Vol] [facility] (43145) Sodium 139 mmol/L (N) 135 - 145 mmol/L [facility] [Moles/Vol] [facility] (00369) Urea nitrogen 26 mg/dL (H) 7 - 20 mg/dL [facility] [Mass/Vol] [facility] (53326) Urea 24 mg/mg (H) 6 - 22 mg/mg [facility] alth nitrogen/Creatin [facility] ine [Mass ratio] [facility] (87541) No panel information on 2019-02-09 WBC LM Ql (Stl) SEE NOTE (no code) [facility] (85567) No panel information on 2019-02-07 Calcidiol 27 ng/mL (L) 20 - 50 ng/mL [facility] ealt [Mass/Vol] [facility] (34051) CK [Catalytic 89 U/L (N) [facility] Re[facility] activity/Vol] [facility] (59955) No panel information on 2019-02-03 Albumin 4.1 g/dL (N) 3.4 - 5.4 g/dL [facility] [Mass/Vol] [facility] (98017) Albumin/Globulin 1.4 {ratio} (N) 1 - 2.5 {ratio} Comm [facility] [Mass ratio] [facility] (33427) ALP [Catalytic 54 U/L (N) 44 - 147 U/L [facility] activity/Vol] [facility] (60686) ALT [Catalytic 21 U/L (N) 4 - 40 U/L [facility] ealt activity/Vol] [facility] (26505) AST [Catalytic 26 U/L (N) 10 - 34 U/L [facility] activity/Vol] [facility] (88200) Bilirubin 0.7 mg/dL (N) 0.1 - 1.2 mg/dL [facility] [Mass/Vol] [facility] (09492) Calcium 9.4 mg/dL (N) 8.5 - 10.2 mg/dL [facility] [Mass/Vol] [facility] (70999) Chloride 105 mmol/L (N) 95 - 106 mmol/L [facility] [Moles/Vol] [facility] (45190) CO2 [Moles/Vol] 25 mmol/L (N) 23 - 29 mmol/L [facility] (69607) Creatinine 1.01 mg/dL (N) [facility] h [Mass/Vol] [facility] (63963) GFR/1.73 sq M 93 (N) 90 - 120 Community [facility] predicted among mL/min/{1.73_m2} mL/min/{1.73_m2} [facility] f [facility] blacks MDRD [facility] (S/P/Bld) [Vol (79384) rate/Area] GFR/1.73 sq 80 (N) 90 - 120 [facility] M.predicted MDRD mL/min/{1.73_m2} mL/min/{1.73_m2} [facility] (S/P/Bld) [Vol [facility] rate/Area] (32899) Globulin (S) 2.9 g/dL (N) 2 - 3.5 g/dL [facility] ealt [Mass/Vol] [facility] () Glucose 143 mg/dL (H) 60 - 125 mg/dL [facility] [Mass/Vol] [facility] () HbA1c (Bld) 6.4 (H) [facility] [Mass fraction] [facility] () Potassium 4.8 mmol/L (N) 3.7 - 5.2 mmol/L [facility] [[facility]oles/Vol] [facility] () Protein 7.0 g/dL (N) 6.4 - 8.3 g/dL [facility] [Mass/Vol] [facility] () Sodium 138 mmol/L (N) 135 - 145 mmol/L [facility] [Moles/Vol] [facility] () Urea nitrogen 24 mg/dL (N) 7 - 20 mg/dL [facility] [Mass/Vol] [facility] () Urea NOT APPLICABLE (no code) [facility] nitrogen/Creatin [facility] [Mass ratio] [facility] () No panel information on 2018-11-04 Albumin 4.2 g/dL (N) 3.4 - 5.4 g/dL [facility] [Mass/Vol] [facility] () Albumin/Globulin 1.5 {ratio} (N) 1 - 2.5 {ratio} Comm [facility] [Mass ratio] [facility] () ALP [Catalytic 42 U/L (N) 44 - 147 U/L [facility] activity/Vol] [facility] () ALT [Catalytic 25 U/L (N) 4 - 40 U/L [facility] ealth activity/Vol] [facility] () AST [Catalytic 28 U/L (N) 10 - 34 U/L [facility] activity/Vol] [facility] () Bilirubin 0.8 mg/dL (N) 0.1 - 1.2 mg/dL [facility] [Mass/Vol] [facility] () Calcium 9.1 mg/dL (N) 8.5 - 10.2 mg/dL [facility] [Mass/Vol] [facility] (26661) Chloride 104 mmol/L (N) 95 - 106 mmol/L [facility] [Moles/Vol] [facility] (24536) Cholesterol 124 mg/dL (N) 180 - 200 mg/dL [facility] [Mass/Vol] [facility] (63040) Cholesterol in 28 mg/dL (L) [facility] HDL [Mass/Vol] [facility] (97156) Cholesterol in 65 mg/dL (N) 0 - 100 mg/dL [facility] LDL [Mass/Vol] [facility] (42196) Cholesterol non 96 mg/dL (N) [facility] HDL [Mass/Vol] [facility] (25867) Cholesterol.tota 4.4 {ratio} (N) [facility] l/Cholesterol in [facility] HDL [Mass ratio] [facility] (11370) CO2 [Moles/Vol] 27 mmol/L (N) 23 - 29 mmol/L [facility] (53216) Creatinine 1.13 mg/dL (N) [facility] [Mass/Vol] [facility] (95085) GFR/1.73 sq M 81 (N) 90 - 120 [facility] predicted among mL/min/{1.73_m2} mL/min/{1.73_m2} Center [facility] blacks MDRD [facility] (S/P/Bld) [Vol (72400) rate/Area] GFR/1.73 sq 70 (N) 90 - 120 [facility] M.predicted MDRD mL/min/{1.73_m2} mL/min/{1.73_m2} [place] [facility] (S/P/Bld) [Vol [facility] rate/Area] (11481) Globulin (S) 2.8 g/dL (N) 2 - 3.5 g/dL [facility] ealth [Mass/Vol] [facility] (61233) Glucose 158 mg/dL (H) 60 - 125 mg/dL [facility] [Mass/Vol] [facility] (24032) Potassium 4.6 mmol/L (N) 3.7 - 5.2 mmol/L [facility] [Moles/Vol] [facility] () Protein 7.0 g/dL (N) 6.4 - 8.3 g/dL [facility] [Mass/Vol] [facility] () Sodium 138 mmol/L (N) 135 - 145 mmol/L [facility] [Moles/Vol] [facility] () Triglyceride 266 mg/dL (H) 0 - 150 mg/dL [facility] [Mass/Vol] [facility] () Urea nitrogen 25 mg/dL (N) 7 - 20 mg/dL [facility] [Mass/Vol] [facility] () Urea NOT APPLICABLE (no code) [facility] nitrogen/Creatin [facility] [Mass ratio] [facility] () No panel information on 2018-08-18 Albumin 4.4 g/dL (N) 3.4 - 5.4 g/dL [facility] [Mass/Vol] [facility] () Albumin DL <= 20 24.8 mg/dL (N) 0.2 - 1.9 mg/dL Comm [facility] mg/L (U) [facility] [Mass/Vol] [facility] () Albumin/Creatini 200 (H) [facility] ne (U) [[facility] () Albumin/Globulin 1.3 {ratio} (N) 1 - 2.5 {ratio} Comm [facility] [[facility]] [facility] () ALP [Catalytic 57 U/L (N) 44 - 147 U/L [facility] activity/Vol] [facility] () ALT [Catalytic 21 U/L (N) 4 - 40 U/L [facility] ealth activity/Vol] [facility] () AST [Catalytic 35 U/L (N) 10 - 34 U/L [facility] activity/Vol] [facility] () Bilirubin 0.6 mg/dL (N) 0.1 - 1.2 mg/dL [facility] [Mass/Vol] [facility] (46027) Calcium 9.2 mg/dL (N) 8.5 - 10.2 mg/dL [facility] [Mass/Vol] [facility] (62690) Chloride 105 mmol/L (N) 95 - 106 mmol/L [facility] [Moles/Vol] [facility] (87838) Cholesterol 114 mg/dL (N) 180 - 200 mg/dL [facility] [Mass/Vol] [facility] (49181) Cholesterol in 28 mg/dL (L) [facility] HDL [Mass/Vol] [facility] (67176) Cholesterol in 55 mg/dL (N) 0 - 100 mg/dL [facility] LDL [Mass/Vol] [facility] (90056) Cholesterol non 86 mg/dL (N) [facility] HDL [Mass/Vol] [facility] (18351) Cholesterol.tota 4.1 {ratio} (N) [facility] l/Cholesterol in [facility] HDL [Mass ratio] [facility] (36563) CO2 [Moles/Vol] 25 mmol/L (N) 23 - 29 mmol/L [facility] (61502) Creatinine (U) 124 mg/dL (N) [facility] [Mass/Vol] [facility] (41824) Creatinine 1.02 mg/dL (N) [facility] [Mass/Vol] [facility] (65808) GFR/1.73 sq M 92 (N) 90 - 120 [facility] predicted among mL/min/{1.73_m2} mL/min/{1.73_m2} [facility] blacks MDRD [facility] (S/P/Bld) [Vol (10784) rate/Area] GFR/1.73 sq 79 (N) 90 - 120 [facility].predicted MDRD mL/min/{1.73_m2} mL/min/{1.73_m2} [facility] (S/P/Bld) [Vol [facility] rate/Area] (52548) Globulin (S) 3.4 g/dL (N) 2 - 3.5 g/dL [facility] ealth [Mass/Vol] [facility] (80370) Glucose 143 mg/dL (H) 60 - 125 mg/dL [facility] [Mass/Vol] [facility] (04576) HbA1c (Bld) 6.2 (H) [facility] [Mass fraction] [facility] (81105) Potassium 4.1 mmol/L (N) 3.7 - 5.2 mmol/L [facility] [Moles/Vol] [facility] (65662) Protein 7.8 g/dL (N) 6.4 - 8.3 g/dL [facility] [Mass/Vol] [facility] (88762) Sodium 139 mmol/L (N) 135 - 145 mmol/L [facility] [Moles/Vol] [facility] (67889) Triglyceride 261 mg/dL (H) 0 - 150 mg/dL [facility] [Mass/Vol] [facility] (14053) Urea nitrogen 29 mg/dL (H) 7 - 20 mg/dL [facility] [Mass/Vol] [facility] (88637) Urea 28 mg/mg (H) 6 - 22 mg/mg [facility] nitrogen/Creatin [facility] [Mass ratio] [facility] (22692) No panel information on 2018-02-15 Exp date 11/2019 (no code) [facility] (04077) Lot 6.4~7.6~0932 (no code) [facility] (61244) crp on 2017-08-20 CRP mass conc 9.8 mg/L (no code) 0 - 8 mg/L 08-20-2017 [facility] 13:00-0400 [facility] (91756) cbc on 2017-08-20 Basophils Auto 43 10*3/uL (no code) 0 - 0.3 10*3/uL 08-20-2017 [facility] #/vol (Bld) 13:00-0400 [facility] (55271) Basophils/100 0.6 % (no code) 0.5 - 1 % 08-20-2017 [facility] WBC Auto (Bld) 13:00-0400 [facility] (31518) Eosinophils Auto 114 10*3/uL (no code) 0.05 - 0.5 08-20-2017 [facility] #/vol (Bld) 10*3/uL 13:00-0400 [facility] (38237) Eosinophils/100 1.6 % (no code) 1 - 4 % 08-20-2017 [email or web address] WBC Auto (Bld) 13:00-0400 [facility] [facility] ([id number]) Erythrocyte 12.9 % (no code) 11.6 - 14.6 % 08-20-2017 Commun [facility] distribution 13:00-0400 [facility] width Auto Ratio [facility] (RBC) ([id number]) Hematocrit Auto 39.6 % (no code) 36.1 - 50.3 % 08-20-2017 Co [employer] Volume Fraction 13:00-0400 [facility] (Bld) [facility] ([id number]) Hemoglobin mass 14.0 g/dL (no code) 12.1 - 17.2 g/dL 08-20-2017 [facility] (Bld) 13:00-0400 [facility] ([id number]) Lymphocytes Auto 1590 10*3/uL (no code) 0.9 - 2.9 08-20-2017 Co [facility] #/vol (Bld) 10*3/uL 13:00-0400 [facility] (04576) Lymphocytes/100 22.4 % (no code) 20 - 40 % 08-20-2017 [employer] WBC Auto (Bld) 13:00-0400 [facility] ([id number]) MCH Auto Entitic 32.0 pg (no code) 27 - 31 pg 08-20-2017 Comm [employer] mass (RBC) 13:00-0400 [facility] ([id number]) MCHC Auto mass 35.4 g/dL (no code) 32 - 36 g/dL 08-20-2017 Comm [employer] Health conc (RBC) 13:00-0400 [facility] (28614) MCV Auto Entitic 90.6 fL (no code) 80 - 100 fL 08-20-2017 Com [employer] volume (RBC) 13:00-0400 [facility] (23806) Monocytes Auto 518 10*3/uL (no code) 0.3 - 0.9 08-20-2017 Com[facility] #/vol (Bld) 10*3/uL 13:00-0400 [facility] (65286) Monocytes/100 7.3 % (no code) 2 - 8 % 08-20-2017 [facility] WBC Auto (Bld) 13:00-0400 [facility] (71236) Neutrophils Auto 4835 10*3/uL (no code) 1.7 - 7 10*3/uL 08-21-[address] [place] [address] Health #/vol (Bld) 13:00-0400 [facility] (16616) Neutrophils/100 68.1 % (no code) 40 - 60 % 08-20-2017 [facility] [employer] WBC Auto (Bld) 13:00-0400 [facility] ([id number]) Platelet mean 11.3 fL (no code) 7.2 - 11.7 fL 08-20-2017 [facility] WiFi Rail volume 13:00-0400 [facility] Entitic volume (05712) (Bld) Platelets Auto 154 10*3/uL (no code) 150 - 450 08-20-2017 [facility] #/vol (Bld) 10*3/uL 13:00-0400 [facility] ([id number]) RBC Auto #/vol 4.37 10*6/uL (no code) 4.2 - 6.1 08-20-2017 [facility] WiFi Rail (Bld) 10*6/uL 13:00-0400 [facility] (86600) WBC Auto #/vol 7.1 10*3/uL (no code) 3.5 - 10.5 08-20-2017 [facility] WiFi Rail (Bld) 10*3/uL 13:00-0400 [facility] ([id number]) No panel information on 2017-08-20 Basophils Auto 0.043 10*3/uL (N) 0 - 0.3 10*3/uL [facility] WiFi Rail #/vol (Bld) [facility] (59716) Eosinophils Auto 0.114 10*3/uL (N) 0.05 - 0.5 [facility] #/vol (Bld) 10*3/uL [facility] (52600) Lymphocytes Auto 1.59 10*3/uL (N) 0.9 - 2.9 [facility] #/vol (Bld) 10*3/uL [facility] (49592) Monocytes Auto 0.518 10*3/uL (N) 0.3 - 0.9 [facility] #/vol (Bld) 10*3/uL [facility] (19228) Neutrophils Auto 4.835 10*3/uL (N) 1.7 - 7 10*3/uL [facility] #/vol (Bld) [facility] (98106) Platelet mean 11.3 fL (N) 7.2 - 11.7 fL [facility] volume Auto [facility] (Bld) (17609) No panel information on 2017-07-24 Albumin mass 4.3 g/dL (N) 3.4 - 5.4 g/dL [facility] (18317) Albumin/Globulin 1.4 (N) [facility] lt mass ratio [facility] (03938) ALP enzyme 59 U/L (N) 44 - 147 U/L [facility] act/[facility] (99529) ALT enzyme 37 U/L (N) 4 - 40 U/L [facility] act/[facility] (27946) AST enzyme 54 U/L (H) 10 - 34 U/L [facility] act/[facility] (81079) Bilirubin mass 0.6 mg/dL (N) 0.1 - 1.2 mg/dL [facility] (44693) Calcium mass 10.0 mg/dL (N) 8.5 - 10.2 mg/dL [facility] (27997) Chloride molar 106 mmol/L (N) 95 - 106 mmol/L [facility] (98115) CO2 molar conc 27 mmol/L (N) 23 - 29 mmol/L [facility] (30553) Creatinine mass 0.97 mg/dL (N) [facility] (16365) GFR/1.73 sq M 98 (N) 90 - 120 [facility] predicted among mL/min/{1.73_m2} mL/min/{1.73_m2} Center o f [facility] blacks MDRD vol [facility] rate/area (79495) (S/P/Bld) GFR/1.73 sq 84 (N) 90 - 120 [facility] Heal th M.predicted MDRD mL/min/{1.73_m2} mL/min/{1.73_m2} Center [facility] rate/area [facility] (60031) Globulin 3.1 (N) [facility] Calculated mass [facility] (S) [facility] (37418) Glucose mass 162 mg/dL (H) 60 - 125 mg/dL [facility] (17500) Potassium molar 5.2 mmol/L (N) 3.7 - 5.2 mmol/L [facility] (51259) Protein mass 7.4 g/dL (N) 6.4 - 8.3 g/dL [facility] (48450) Sodium molar 140 mmol/L (N) 135 - 145 mmol/L [facility] (89816) Urea nitrogen 21 mg/dL (N) 7 - 20 mg/dL [facility] (46377) Urea NOT APPLICABLE (no code) [facility] nitrogen/Creatin [facility] ratio [facility] (04922) No panel information on 2017-04-13 Exp date 01/2019 (no code) [facility] (33714) Lot 7.2~6.3~0796 (no code) [facility] (10700) No panel information on 2016-06-24 Albumin mass 4.3 g/dL (no code) 3.4 - 5.4 g/dL 06-24-2016 Not Available conc 10:20-0400 (41425) Albumin/Globulin 1.4 {ratio} (no code) 1 - 2.5 {ratio} 7 Not Available mass ratio 10: (69992) ALP enzyme 55 U/L (no code) 44 - 147 U/L 06-24-2016 Not Avai lable act/vol 10: (71781) ALT enzyme 21 U/L (no code) 4 - 40 U/L 06-24-2016 Not Availa ble act/vol 10: (70410) AST enzyme 24 U/L (no code) 10 - 34 U/L 06-24-2016 Not Avail able act/vol 10: (29639) Bilirubin mass 0.5 mg/dL (no code) 0.1 - 1.2 mg/dL 06-24-2016 N ot Available conc 10: (93083) Calcium mass 8.9 mg/dL (no code) 8.5 - 10.2 mg/dL 06-24-2016 No t Available conc 10: (57150) Chloride molar 103 mmol/L (no code) 95 - 106 mmol/L 06-24-2016 Not Available conc 10:0 (47650) Cholesterol in 26 mg/dL (L) 06-24-2016 Not Availab le HDL mass conc 10:0 (53484) Cholesterol in 54 mg/dL (no code) 0 - 100 mg/dL 06-24-2016 Not Available LDL mass conc 10:0 (57880) Cholesterol in 38 mg/dL (no code) 06-24-2016 Not Availab le VLDL mass conc 10: (52251) Cholesterol mass 118 mg/dL (no code) 180 - 200 mg/dL 06-24-2016 Not Available conc 10:0 (58675) CO2 molar conc 22 mmol/L (no code) 23 - 29 mmol/L 06-24-2016 No t Available 10:0 (63697) Creatinine mass 0.91 mg/dL (no code) 06-24-2016 Not Availa ble conc 10: (02238) GFR/1.73 sq M 106 (no code) 90 - 120 06-24-2016 Not Avai lable predicted among mL/min/{1.73_m2} mL/min/{1.73_m2} 10: (94621) blacks MDRD vol rate/area (S/P/Bld) GFR/1.73 sq M 92 (no code) 90 - 120 06-24-2016 Not Avai lable predicted among mL/min/{1.73_m2} mL/min/{1.73_m2} 10: (68812) non-blacks MDRD vol rate/area (S/P/Bld) Globulin 3.0 g/dL (no code) 2 - 3.5 g/dL 06-24-2016 Not Avail able Calculated mass 10: (54851) conc (S) Glucose mass 139 mg/dL (H) 60 - 125 mg/dL 06-24-2016 Not Available conc 10: (94000) Potassium molar 4.9 mmol/L (no code) 3.7 - 5.2 mmol/L 06-24-2016 Not Available conc 10: (71883) Protein mass 7.3 g/dL (no code) 6.4 - 8.3 g/dL 06-24-2016 Not Available conc 10:0 (90673) Sodium molar 141 mmol/L (no code) 135 - 145 mmol/L 06-24-2016 N ot Available conc 10: (43021) Triglyceride 188 mg/dL (H) 0 - 150 mg/dL 06-24-2016 Not A vailable mass conc 10:0 (19415) Urea nitrogen 15 mg/dL (no code) 7 - 20 mg/dL 06-24-2016 Not A vailable mass conc 10:0 (64815) Urea 16 mg/mg (no code) 6 - 22 mg/mg 06-24-2016 Not Avail able nitrogen/Creatin 10:0 (36066) ine mass ratio Vital Signs Vital Sign Value Interpretation Reference Date Time Care Prov ider Facility (Normalized) (Normalized) Range BMI (Body Mass 29.24 kg/m2 (no code) 15 - 25 kg/m2 05-11-2018 [facility] Community Index) 12:15-0 54506 [facility] (39173) BMI (Body Mass 28.42 kg/m2 (no code) 15 - 25 kg/m2 09-28-2017 [facility] Index) 11:40-0400 14558 [facility] (91893) BMI (Body Mass 28.46 kg/m2 (no code) 15 - 25 kg/m2 08-20-2017 [facility] Index) 14:40-0400 44251 [facility] (11215) BMI (Body Mass 29.37 kg/m2 (no code) 15 - 25 kg/m2 07-23-2017 [facility] Index) 17:200400 96646 [facility] (96691) Body height 190.5 cm (no code) cm 05-07-2018 [employer] [facility] 10:150 62968 [facility] (99243) Body 97.8 [degF] (no code) 97.8 - 99.0 09-28-2017 [facility] Temperature [degF] 11:40-0400 93096 [facility] (12868) Body 97.9 [degF] (no code) 97.8 - 99.0 08-20-2017 [facility] Temperature [degF] 14:40-0400 65085 [facility] (41294) Body 98.3 [degF] (no code) 97.8 - 99.0 07-23-2017 [facility] Temperature [degF] 17:[id number] [facility] (53629) Body weight 106.14 kg (no code) kg 05-11-2018 [facility] 12:[id number] [facility] (17564) Height 190.5 cm (no code) cm 05-11-2018 [facility] 12:[id number] [facility] (48578) Height 190.5 cm (no code) cm 11-06-[address] [facility] munity 10:30762 [facility] (74075) Height 190.5 cm (no code) cm 09-28-2017 [facility]IN [facility] 11:400400 05394 [facility] (08665) Height 190.5 cm (no code) cm 08-20-2017 [facility] 14:40-0400 48968 [facility] (38592) Height 190.5 cm (no code) cm 08-07-2017 MARINO SEGAL [facility] 10:450400 [id number] [place] [address] (04731) Height 190.5 cm (no code) cm 07-23-2017 [facility]IN [facility] 17:200400 [id number] [place] [address] (89523) Weight 103.15 kg (no code) kg 09-28-2017 ELVIN ABDI [facility] 11:40-[id number] [place] [address] (87715) Weight 103.28 kg (no code) kg 08-20-2017 ELVIN ABDI [facility] 14:4004[id number] [place] [address] (51343) Weight 106.6 kg (no code) kg 07-23-2017 ELVIN ABDI [facility] 17:200400 [id number] [place] [address] (20674) Interventions No Information Plan of Treatment Normalized Care Care Detail Care Activity Date Care Provider F acility Activity (CHM) Chronic Health [facility] 02-15-2018 - ELVIN DESAI R [id number] [facility] 02-15-2018 - [facility] 02-15-2018 [place] ([id number]) Follow-up encounter [facility] 02-10-2018 - MARINO SEGAL [phone] [facility] 02-10-2018 - [facility] 02-10-2018 [place] (79588) Follow-up encounter [facility] 02-05-2018 MARINO SEGAL [phone] [facility] (60509) Follow-up encounter [facility] 03-26-2018 ELVIN ABDI [id number] [facility] (59378) Goals No Information Social History No Information Functional Status The data below is from unstructured sources Query Response Date Travon rded Patient Orientation Person Place Time Situation August 21, 2015 5:52pm Query Response Date Travon rded Patient Orientation Person Place Time Situation August 14, 2015 6:35pm Query Response Date Travon rded Comprehension Ability Understands Co ncepts April 22, 2017 9:00am Mental Status No Information Encounters Encounter Normalized Encounter Encounter Diagnosis Care Provi eleazar Organization Date Type 10-26-2017 ([facility]) Chronic Health no information ELVIN ABDI ( no [facility] - Maintenance phone) (no phone) 10-26-2017 - 10-26-2017 02-05-2018 Follow-up encounter no information MARINO SEGAL (no phone) [facility] - (no phone) 02-05-2018 - 02-05-2018 11-06-2017 Patient encounter no information no name (no phone) no organization name (no phone) 09-28-2017 Patient encounter no information no name (no phone) no organization name (no phone) 08-20-2017 Patient encounter no information no name (no phone) no organization name (no phone) 08-07-2017 Patient encounter no information no name (no phone) no organization name (no phone) 07-24-2017 Patient encounter no information no name (no phone) no organization name (no phone) 07-23-2017 Patient encounter no information no name (no phone) no organization name (no phone) 05-08-2017 Patient encounter no information no name (no phone) no organization name (no phone) NEGATED Patient encounter no information no name (no phone) no organization name 04-21-2017 (no phone) - 04-22-2017 04-13-2017 Patient encounter no information no name (no phone) no organization name (no phone) 05-05-2019 Patient encounter no information (no phone) [facility] procedure [facility] (no phone) 04-15-2019 Patient encounter no information (no phone) [facility] procedure [facility] (no phone) 02-09-2019 Patient encounter no information no name (no phone) no organization name procedure (no phone) 02-07-2019 Patient encounter no information no name (no phone) no organization name procedure (no phone) 02-03-2019 Patient encounter no information no name (no phone) no organization name procedure (no phone) 11-08-2018 Patient encounter no information no name (no phone) no organization name procedure (no phone) 11-05-2018 Patient encounter no information no name (no phone) no organization name procedure (no phone) 11-04-2018 Patient encounter no information no name (no phone) no organization name procedure (no phone) 09-29-2018 Patient encounter no information (no phone) [facility] procedure [facility] (no phone) 08-19-2018 Patient encounter no information (no phone) [facility] procedure [facility] (no phone) 08-18-2018 Patient encounter no information no name (no phone) no organization name procedure (no phone) 08-06-2018 Patient encounter no information no name (no phone) no organization name procedure (no phone) 08-06-2018 Patient encounter no information no name (no phone) no organization name procedure (no phone) 05-11-2018 Patient encounter no information no name (no phone) no organization name procedure (no phone) 05-07-2018 Patient encounter no information no name (no phone) no organization name procedure (no phone) 02-15-2018 Patient encounter no information no name (no phone) no organization name procedure (no phone) Patient encounter no information no name (no phone) no organ ization name procedure (no phone) Medical Equipment No Information Payers No Information History general Narrative - Reported Note Type Note Facility History general Narrative - Reported Type Medical Type 2 diabetes mellitus History Medical Hypercholesteremia History Medical Essential (primary) hyperte nsion History Medical Warthins tumor History Medical CAD (coronary artery diseas e) History Medical Carotid artery disease History Medical PAD (peripheral artery dise ase) History Medical Tobacco abuse History Surgical 2 abcesses on left foot 05/18/15 History Surgical varicose vein surgery 1995 History Surgical 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 History Surgical EGD 2010 History Surgical Left Leg 3 stents 08/21/2015 History Surgical Left leg 4th stent placed 04/2017 History Hospitaliz surgeries ation History [facility] ([id number]) Summary Purpose eClinicalWorks SubmissioneClinicalWorks SubmissioneClinicalWorks SubmissioneClinicalWorks SubmissioneClinicalWorks SubmissioneClinicalWorks SubmissioneClinicalWorks SubmissioneClinicalWorks Submission Advance Directives Directive Response Recor ded Date/Time Advance Directives No 7:19am Health Care Power of Compensator No 08/21/15 7:19am Organ Donor No 08/21/15 7:19am Resuscitation Status Full Code 08/21/15 7:19am Directive Response Recor ded Date/Time Advance Directives No 8:36am Health Care Power of Compensator No 08/14/15 8:36am Organ Donor No 08/14/15 8:36am Resuscitation Status Full Code 08/14/15 8:36am Directive Response Recor ded Date/Time Advance Directives No 7:05am Health Care Power of Compensator No 04/21/17 7:05am Organ Donor No 04/21/17 7:05am Resuscitation Status Full Code 04/21/17 7:05am Discharge Instructions Patient Instructions Physician Instructions Patient Instructions: Hold METFORMIN until the morning of 08/24/15, then resume previous home dose Pneu Vac Indicated: Yes Follow Up/Plan Follow up with Dr Boyce in 4 weeks CARDIAC CATH DISCHARGE INSTRUCTIONS *Hold Metformin for 72 hours post heart cath. ACTIVITY * Go Home directly and rest. * Limit activity of the leg (or wrist if it was used) for 7 days including aerobics, swimming, jogging, bicycling, etc. * Restrict stair-climbing for 7 days if possible, if not, climb up with your non-cath leg, then bring together on the same step. * Avoid lifting, pushing, pulling or excessive movement of the affected extremity for 7 days. * Customary sexual activity may be resumed after 2 days-use caution not to use a position that strains or causes pain to the affected extremity. * No driving for 24 hours. * NO SMOKING. * Avoid straining for bowel movements for 7 days. * Gentle walking on level ground is allowed. * Returning to work will depend on the type of procedure and the results. Your doctor will discuss this with you. CALL YOUR DOCTOR FOR ANY OF THE FOLLOWING: *If bleeding from the puncture site occurs- Apply gentle pressure to site with clean cloth and call your doctor or EMS. * If a knot or lump forms under the skin, increases in size, or causes pain. * If bruising appears to be worsening or moving further down your leg instead of disappearing. * Temperature above 101 F. CARE OF YOUR GROIN INCISION; * Bruising or purple discoloration of the skin near the puncture site is common. * You may shower only, no bathtub bathing for 5 days. Be careful to avoid slipping as your leg may feel stiff. * If a closure device was used on your femoral artery, please see the attached guide regarding care of the device and your leg. * REMOVE the dressing from your groin the next day after your procedure in the shower. CARE OF YOUR WRIST INCISION; * Bruising or purple discoloration of the skin near the puncture site is common. * You may shower. * DO NOT submerge wrist. * Remove dressing in 24 hours. Care Plan Patient Instructions:: Hold METFORMIN until the morning of 08/24/15, then resume previous home dose Patient Instructions Physician Instructions CARDIAC CATH DISCHARGE INSTRUCTIONS *Hold Metformin for 48 hours post heart cath. ACTIVITY * Go Home directly and rest. * Limit activity of the leg (or wrist if it was used) for 7 days including aerobics, swimming, jogging, bicycling, etc. * Restrict stair-climbing for 7 days if possible, if not, climb up with your non-cath leg, then bring together on the same step. * Avoid lifting, pushing, pulling or excessive movement of the affected extremity for 7 days. * Customary sexual activity may be resumed after 2 days-use caution not to use a position that strains or causes pain to the affected extremity. * No driving for 24 hours. * NO SMOKING. * Avoid straining for bowel movements for 7 days. * Gentle walking on level ground is allowed. * Returning to work will depend on the type of procedure and the results. Your doctor will discuss this with you. CALL YOUR DOCTOR FOR ANY OF THE FOLLOWING: *If bleeding from the puncture site occurs- Apply gentle pressure to site with clean cloth and call your doctor or EMS. * If a knot or lump forms under the skin, increases in size, or causes pain. * If bruising appears to be worsening or moving further down your leg instead of disappearing. * Temperature above 101 F. CARE OF YOUR GROIN INCISION; * Bruising or purple discoloration of the skin near the puncture site is common. * You may shower only, no bathtub bathing for 5 days. Be careful to avoid slipping as your leg may feel stiff. * If a closure device was used on your femoral artery, please see the attached guide regarding care of the device and your leg. * REMOVE the dressing from your groin the next day after your procedure in the shower. CARE OF YOUR WRIST INCISION; * Bruising or purple discoloration of the skin near the puncture site is common. * You may shower. * DO NOT submerge wrist. * Remove dressing in 24 hours. Patient Instructions: Hold METFORMIN until the morning of 08/17/15, then resume previous home dose Pneu Vac Indicated: Yes Care Plan Patient Instructions:: Hold METFORMIN until the morning of 08/17/15, then resume previous home dose No hospital discharge instruction information available. Additional Source Comments This clinical document has been generated using [employer] software that has been certified by the Office of the National Coordinator for Health Information Technology (ONC 15.99.04.3023.Diam.31.00.0.208075) and the National Committee for Speech/Language Therapist (NCQA, as an eMeasure certified technology). FOR RECORDS PERTAINING TO PATIENTS WHO ARE OR HAVE BEEN ENROLLED IN A CHEMICAL D EPENDENCY/SUBSTANCE ABUSE PROGRAM, SOME INFORMATION MAY BE OMITTED. This clinica l summary was aggregated from multiple sources. Caution should be exercised in using it in the provision of clinical care. This summary normalizes information from multiple sources, and as a consequence, information in this document may ma terially change the coding, format and clinical context of patient data. In young tion, data may be omitted in some cases. CLINICAL DECISIONS SHOULD BE BASED ON T HE PRIMARY CLINICAL RECORDS. [employer] provides no warranty or guara ntee of the accuracy or completeness of information in this document.The followi ng information is based on time limited clinical information UNRECOGNIZED CONTENT PROVIDED BELOW FOR UNRECOGNIZED SECTION MEDICAL (GENERAL) HISTORY Type Description Date Medical History diabetes mellitus Medical History hypercholesterolemia Medical History hypertension Surgical History 2 abcesses on left foot 05/18/15 Surgical History varicose vein surgery 1995 Surgical History Removal of left eduardo ticle due to cancer that spread to lymph nodes 1988 Surgical History EGD 201 1 Surgical History Left Leg 3 stents 08/21/2015 Hospitalization History surgeries Type Description Date Medical History diabetes mellitus Medical History hypercholesterolemia Medical History hypertension Surgical History 2 abcesses on left foot 05/18/15 Surgical History varicose vein surgery 1995 Surgical History Removal of left eduardo ticle due to cancer that spread to lymph nodes 1988 Surgical History EGD 201 1 Surgical History Left Leg 3 stents 08/21/2015 Surgical History Left leg 4th stent placed 04/2017 Hospitalization History surgeries Type Description Date Medical History Type 2 diabetes mellitus Medical History Hypercholesteremia Medical History Essential (primary) hypertension Medical History Warthins tumor Medical History CAD (coronary artery disease) Medical History Carotid artery disease Medical History PAD (peripheral adrianne ry disease) Medical History Tobacco abuse Surgical History 2 abcesses on left foot 05/18/15 Surgical History varicose vein surgery 1995 Surgical History Removal of left eduardo ticle due to cancer that 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 No trauma noted. Has taken hydrocodone to help at night. JjournotRN, Increased BS fasting and gets higher through out the day.3 mo f/u. Consult Dr. Segal;MHill RT(R)Diabetes Pt in for check up on DM due to b lood sugar lows (59 and lower) with the medication change Chiki Coronado requ est3 mo f/u - Karon, MAmedication refillRequests return [id number]-Gbhhcdn NaylaR-Kennedi provider visit3 mo f/u - KECIA Brantley
--- OUTSIDE RECORDS SUMMARY | 2019-06-21 16:26 | XMS REPORT ---
Author Author Nick ABDI Organization [facility] Address [address] [place] [address] Care Team Providers Care Track Helper Name Role Phone ELVIN ABDI Unavailable PROBLEMS Type Condition ICD9-CM Code UJC30-KV Code Onset Dates Condition S tatus SNOMED Code Problem Impaired circulation I99.9 Active 63837909 Problem Hyperlipidemia E78.5 Active 19117 004 Problem Cigarette nicotine dependence with nicotine-induced di sorder F17.219 Active 02638392 Problem DM neuro manif type II E11.49 Active 26590160 Problem Hammertoe M20.40 Active 451523631 Problem Reactive depression F32.9 Active 26577647 Problem Type 2 diabetes mellitus E11.9 Activ e 65940390 Problem Arthritis M19.90 Active 7465944 Problem Carotid artery disease I77.9 Active 577482163 Problem Hypercholesteremia E78.00 Active 2 69540673 Problem Tobacco abuse Z72.0 Active 435435 05 Problem Restless leg syndrome G25.81 Active 24391157 Problem 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 Active 28248 005 Problem Mild depression F32.0 Active 3104 33816 Problem Essential (primary) hypertension I10 Active 19130315 Problem Left leg claudication I73.9 Active 773640999 Problem PAD (peripheral artery disease) I73.9 Active 668021900 Problem Onychomycosis B35.1 Active 706000 008 Problem Panlobular emphysema J43.1 Active 2639527 Problem Vitamin D deficiency E55.9 Active 69101010 ALLERGIES No Information ENCOUNTERS Encounter Location Date Diagnosis [facility] [address] [facility] [address] [id number], [place] [address] Jul, [facility] [address] [facility] [id number] [address] [place] [address] June, [facility] [address] [facility] [address] [id number], [place] [address] May, [facility] [address] [id number] [place] [address] May, [address] 340 [id number] [place] [address] May, Type 2 diabetes mellitus E11 .9 ; Essential (primary) hypertension I10 ; Mild depression F32.0 ; BMI 28.0-28.9,adult Z68.28 and Left leg claudication I73.[address] 340 [id number] [place] [address] Apr, Type 2 diabetes mellitus E11 .9 ; Essential (primary) hypertension I10 ; Vitamin D deficiency E55.9 and Mild depression F32.[address] [id number] [place] [address] Apr, Type 2 diabetes mellitus E11 .[address] [id number], [place] [address] Apr, [address] [id number], [place] [address] Apr, Flu-like symptoms R68.[address] [id number] [place] [address] Apr, Flu-like symptoms R68.[address] [id number], [place] [address] Jan, Diarrhea, unspecified type R 19.[address] 340[address] [id number], [place] [address] Jan, Type 2 diabetes mellitus E11 .9 ; Essential (primary) hypertension I10 ; Restless leg syndrome G25.81 ; Vitamin D deficiency E55.9 ; Diarrhea, unspecified type R19.7 and Encounter for immunization Z23 [address] [id number], [place] [address] Jan, Type 2 diabetes mellitus E11 .9 [facility] [address] [id number] [place] [address] Oct, Type 2 diabetes mellitus E11 .9 and Essential (primary) hypertension I10 [facility] [address] [facility] [id number] [place] [address] Oct, Onychomycosis B35.1 ; Diabet es mellitus E11.9 and Impaired circulation I99.[address] 340[address] [id number] [place] [address] Oct, Diabetes mellitus E11.9 and Hypertension I10 [address] 340[address] [id number] [place] [address] Oct, Hypertension I10 [address] 340[address] [id number] [place] [address] Sep, [facility] [address] [facility] [id number] [place] [address] Sep, [address] 340[address] [id number], [place] [address] Aug, [facility] [address] [facility] [id number] [address] [place] [address] Aug, Panlobular emphysema J43.[address] 340[address] [id number], [place] [address] Aug, Panlobular emphysema J43.[address] 340[address] [id number], [place] [address] Aug, Panlobular emphysema J43.[address] 340B [id number], [place] [address] Jul, Encounter for screening for malignant neoplasm of colon Z12.11 ; CAD (coronary artery disease) I25.10 ; Cigarette nicotine dependence with nicotine-induced disorder F17.219 ; Essential (primary) hypertension I10 ; Panlobular emphysema J43.1 and DM neuro manif type II E11.[address] 340B [id number] [place] [address] Jul, Type 2 diabetes mellitus E11 .[address] 340B [id number] [place] [address] Jul, [facility] [address] [facility] [id number] [address] [place] [address] Jul, Onychomycosis B35.1 and DM n euro manif type II E11.49 [facility] [address] [facility] [id number] [address] [place] [address] June, Diabetes mellitus E11.[address] 340[address] [id number], [place] [address] May, [address] 340B [id number], [place] [address] Apr, Type 2 diabetes mellitus E11 .9 ; Hypercholesteremia E78.00 ; Essential (primary) hypertension I10 ; CAD (coronary artery disease) I25.10 ; Hypertension I10 ; 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 ; Left leg claudication I73.9 ; Encounter for immunization Z23 ; Carotid artery disease I77.9 ; Hyperlipidemia E78.5 ; PAD (peripheral artery disease) I73.9 ; Tobacco abuse Z72.0 ; Impaired circulation I99.9 ; DM neuro manif type II E11.49 ; Cigarette nicotine dependence with nicotine-induced disorder F17.219 ; Reactive depression F32.9 ; Hammertoe M20.40 ; Arthritis M19.90 and Hypoglycemia E16.2 [facility] [address] [facility] [id number] [address] [place] [address] Apr, Diabetes mellitus E11.9 [facility] [address] [facility] [id number] [address] [place] [address] Apr, Onychomycosis B35.1 ; Impair ed circulation I99.9 and DM neuro manif type II E11.49 [facility] [address] [facility] [id number] [address] [place] [address] Jan, Diabetes mellitus E11.9 ; Hy pertension I10 and Encounter for immunization Z23 [facility] [address] [id number] [address] [place] [address] Jan, Diabetes mellitus E11.9 [facility] [address] [id number] [address] [place] [address] Jan, [facility] [address] [facility] [id number] [address] [place] [address] Jan, [facility] [address] [facility] [id number] [address] [place] [address] Oct, Onychomycosis B35.1 ; DM chuck ro manif type II E11.49 and Impaired circulation I99.9 [facility] [address] [id number] [address] [place] [address] Sep, [facility] [address] [id number] [address] [place] [address] Aug, Hypoglycemia E16.2 [facility] [address] [id number] [address] [place] [address] Aug, [facility] [address] [id number] [address] [place] [address] Jul, [facility] [address] [facility] [id number] [address] [place] [address] Jul, Elevated blood sugar R73.9 a nd Neck pain M54.2 [facility] [address] [id number] [address] [place] [address] Jul, [facility] [address] [id number] [address] [place] [address] Jul, Onychomycosis B35.1 and DM n euro manif type II E11.49 [facility] [address] [id number] [address] [place] [address] Jul, [facility] [address] [facility] [id number] [address] [place] [address] June, Hyperlipidemia E78.5 [place] [address] [address] June, Diabetes mellitus E11.9 ; CA D (coronary artery disease) I25.10 ; Arthritis M19.90 and Hyperlipidemia E78.5 [place] [address] [address] June, [place] [address] [address] Apr, Onychomycosis B35.1 ; DM chuck ro manif type II E11.49 and Hammertoe M20.40 [place] [address] [address] Apr, Diabetes mellitus E11.9 and Hypertension I10 [place] [address] [address] Mar, Hypertension I10 and Diabete s mellitus E11.9 [place] [address] [address] Mar, Hypertension I10 and Diabete s mellitus E11.9 [place] [address] [address] Jan, Onychomycosis B35.1 and DM n euro manif type II E11.49 [place] [address] [address] Dec, [place] [address] [address] Dec, [place] [address] [address] Dec, Hypertension I10 and Diabete s mellitus E11.9 [place] [address] [address] Oct, Encounter for immunization Z 23 ; Diabetes mellitus E11.9 ; Hypertension I10 and Cigarette nicotine dependence with nicotine-induced disorder F17.219 [place] [address] [facility] [id number] [address] [place] [address] Oct, Diabetes mellitus E11.9 [place] [address] [facility] [id number] [address] [place] [address] Oct, Onychomycosis B35.1 ; DM chuck ro manif type II E11.49 and Hammertoe M20.40 [place] [address] [facility] [id number] [address] [place] [address] Jul, Diabetes mellitus E11.9 [place] [address] [facility] [id number] [address] [place] [address] Jul, Onychomycosis B35.1 ; Hammer toe M20.40 and DM neuro manif type II E11.49 [place] [address] [facility] [id number] [address] [place] [address] May, Diabetes mellitus E11.9 [place] [address] [place] [id number] [address] [place] [address] May, Diabetes mellitus E11.9 [place] [address] [place] [id number] [address] [place] [address] Nov, Diabetes mellitus E11.9 ; Hy pertension I10 ; Reactive depression F32.9 and Encounter for immunization Z23 [place] [address] [place] [id number] [address] [place] [address] Oct, Ulcer of other part of foot L97.509 [place] [address] [facility] [id number] [address] [place] [address] Sep, Onychomycosis B35.1 ; Ulcer of heel, left, with unspecified severity L97.429 and DM neuro manif type II E11.49 [place] [address] [facility] [id number] [address] [place] [address] Sep, [place] [address] [facility] [id number] [address] [place] [address] Sep, Ulcer of heel, left, with un specified severity L97.429 [place] [address] [facility] [id number] [address] [place] [address] Aug, Onychomycosis B35.1 ; Ulcer of heel, left, with unspecified severity L97.429 and DM neuro manif type II E11.49 [place] [address] [facility] [id number] [address] [place] [address] Jul, Diabetes mellitus E11.9 ; Hy pertension I10 ; Cigarette nicotine dependence with nicotine-induced disorder F17.219 and CAD (coronary artery disease) I25.10 [place] [address] [facility] [id number] [address] [place] [address] Jul, Left leg claudication I73.9 ; Right leg claudication I73.9 ; CAD (coronary artery disease) I25.10 ; Hypertension I10 and Hyperlipidemia E78.5 [place] [address] [facility] [id number] [address] [place] [address] Jul, Ulcer of heel, left, with un specified severity L97.429 and DM neuro manif type II E11.49 [place] [address] [facility] [id number] [address] [place] [address] June, Ulcer of heel, left, with un specified severity L97.429 and Ulcer of other part of foot L97.509 [place] [address] [facility] [id number] [address] [place] [address] June, Ulcer of heel, left, with un specified severity L97.429 and Ulcer of foot, left, with unspecified severity L97.529 [place] [address] [facility] [id number] [address] [place] [address] May, [place] [address] [facility] [id number] [address] [place] [address] May, [place] [address] [facility] [id number] [address] [place] [address] Apr, DM neuro manif type II E11.4 9 ; Hypertension I10 and Sleep apnea in adult G47.33 [place] [address] [place] [address] Apr, [place] [address] [place] [address] Apr, Ulcer of foot L97.509 and DM neuro manif type II E11.49 [place] [address] [address] Apr, Ulcer of other part of foot L97.509 and DM neuro manif type II E11.49 [place] [address] [place] [address] Apr, Onychomycosis B35.1 ; Ingrow n toenail L60.0 ; Impaired circulation I99.9 and DM neuro manif type II E11.[address] [address] Mar, Ulcer of other part of foot L97.509 ; Onychomycosis B35.1 and Diabetes mellitus E11.[address] [address] Dec, Encounter for immunization Z 23 ; Hypertension I10 and Diabetes mellitus E11.[address] [address] Dec, [address] [address] Dec, CAD (coronary artery disease ) I25.10 ; Hypertension I10 ; Left leg claudication I73.9 and Hyperlipidemia E78.[address] [address] Nov, Onychomycosis B35.1 and Vin ertoe M20.40 [place] [id number] [place] [address] Sep, Coronary atherosclerosis of unspecified type of vessel, [place] or graft 414.[address] [address] Sep, Coronary atherosclerosis of unspecified type of vessel, [place] or graft 414.00 and Diabetes 250.00 [facility] [address] [id number] [address] [place] [address] 14 May, 2014 [facility] [address] [id number] [address] [place] [address] May, [facility] [address] [id number] [address] [place] [address] Apr, [facility] [address] [id number] [address] [place] [address] Apr, [facility] [address] [id number] [address] [place] [address] Apr, [facility] [address] [id number] [address] [place] [address] Apr, [facility] [address] [id number] [address] [place] [address] Mar, [facility] [address] [id number] [address] [place] [address] Mar, [facility] [address] [id number] [address] [place] [address] Jan, [facility] [address] [id number] [address] [place] [address] Jan, [facility] [address] [id number] [address] [place] [address] Jan, [facility] [address] [id number] [address] [place] [address] Jan, [facility] [address] [id number] [address] [place] [address] Jan, [facility] [address] [id number] [address] [place] [address] Jan, [facility] [address] [id number] [address] [place] [address] Jan, [facility] [address] [id number] [address] [place] [address], [place] [address] Jan, [facility] [address] [id number] [address] [place] [address], [place] [address] Jan, [facility] [address] [id number] [address] [place] [address], [place] [address] Jan, [facility] [address] [id number] [address] [place] [address], [place] [address] Jan, [facility] [address] [id number] [address] [place] [address], [place] [address] Nov, [facility] [address] [id number] [address] [place] [address], [place] [address] Nov, [facility] [address] [id number] [address] [place] [address], [place] [address] Nov, [facility] [address] [id number] [address] [place] [address], [place] [address] Nov, [facility] [address] [id number] [address] [place] [address], [place] [address] Nov, [facility] [address] [id number] [address] [place] [address] Nov, [facility] [address] [id number] [address] [place] [address] 19 Oct, 2013 [facility] [address] [id number] [address] [place] [address] 19 Oct, 2013 [facility] [address] [id number] [address] [place] [address], [place] [address] 19 Oct, 2013 [facility] [address] [id number] [address] [place] [address], [place] [address] 19 Oct, 2013 [facility] [address] [id number] [address] [place] [address], [place] [address] 05 Oct, 2013 [facility] [address] [id number] [facility] [place] [address] Oct, [facility] [address] [id number] [facility] [place] [address] Sep, [facility] [address] [id number] [facility] [place] [address] Sep, [facility] [address] [id number] [address] [place] [address], [place] [address] Sep, [facility] [address] [id number] [address] [place] [address], [place] [address] Sep, [facility] [address] [id number] [address] [place] [address], [place] [address] Sep, [facility] [address] [id number] [address] [place] [address], [place] [address] Sep, [facility] [address] [id number] [address] [place] [address], [place] [address] Aug, [facility] [address] [id number] [address] [place] [address], [place] [address] Aug, [facility] [address] [id number] [address] [place] [address], [place] [address] Aug, [facility] [address] [id number] [address] [place] [address], [place] [address] Aug, [facility] [address] [id number] [address] [place] [address], [place] [address] Aug, [facility] [address] [id number] [address] [place] [address], [place] [address] Aug, [facility] [address] [id number] [address] [place] [address], [place] [address] Jul, [facility] [address] [id number] [address] [place] [address], [place] [address] Jul, [facility] [address] [id number] [address] [place] [address], [place] [address] Jul, [facility] [address] [id number] [facility] [place] [address] Jul, [facility] [address] [id number] [address] [place] [address], [place] [address] June, [facility] [address] [id number] [address] [place] [address], [place] [address] June, [facility] [address] [id number] [address] [place] [address], [place] [address] June, [facility] [address] [id number] [address] [place] [address], [place] [address] June, [facility] [address] [id number] [address] [place] [address], [place] [address] May, [facility] [address] [id number] [address] [place] [address], [place] [address] May, [facility] [address] [id number] [address] [place] [address], [place] [address] May, [facility] [address] [id number] [address] [place] [address], [place] [address] May, [facility] [address] [id number] [address] [place] [address], [place] [address] May, [facility] [address] [id number] [address] [place] [address], [place] [address] May, [facility] [address] [id number] [address] [place] [address], [place] [address] Apr, [facility] [address] [id number] [address] [place] [address], [place] [address] Apr, [facility] [address] [id number] [address] [place] [address], [place] [address] Apr, [facility] [address] [id number] [address] [place] [address], [place] [address] Apr, [facility] [address] [id number] [address] [place] [address], [place] [address] 06 Apr, 2013 [facility] [address] [id number] [address] [place] [address], [place] [address] Apr, 2013 [facility] [address] [id number] [address] [place] [address], [place] [address] Apr, 2013 [facility] [address] [id number] [address] [place] [address], [place] [address] Jan, [facility] [address] [id number] [address] [place] [address], [place] [address] Jan, [facility] [address] [id number] [address] [place] [address], [place] [address] Jan, [facility] [address] [id number] [address] [place] [address], [place] [address] Jan, [facility] [address] [id number] [address] [place] [address], [place] [address] Jan, [facility] [address] [id number] [address] [place] [address], [place] [address] Jan, [facility] [address] [id number] [address] [place] [address], [place] [address] Dec, [facility] [address] [id number] [address] [place] [address], [place] [address] Dec, [facility] [address] [id number] [address] [place] [address], [place] [address] Dec, [facility] [address] [id number] [address] [place] [address], [place] [address] Dec, [facility] [address] [id number] [address] [place] [address], [place] [address] Dec, [facility] [address] [id number] [address] [place] [address], [place] [address] Dec, [facility] [address] [id number] [address] [place] [address], [place] [address] Nov, [facility] [address] [id number] [address] [place] [address], [place] [address] Oct, [facility] [address] [id number] [address] [place] [address], [place] [address] Oct, [facility] [address] [id number] [address] [place] [address], [place] [address] Aug, [facility] [address] [id number] [address] [place] [address], [place] [address] Aug, [facility] [address] [id number] [address] [place] [address], [place] [address] Jul, [facility] [address] [id number] [address] [place] [address], [place] [address] June, [facility] [address] [id number] [address] [place] [address], [place] [address] Apr, [facility] [address] [id number] [address] [place] [address], [place] [address] Apr, [facility] [address] [id number] [address] [place] [address], [place] [address] Apr, [facility] [address] [id number] [address] [place] [address], [place] [address] Apr, [facility] [facility] [address] [id number] [address] [place] [address], [place] [address] Mar, [facility] [address] [id number] [address] [place] [address], [place] [address] Jan, [facility] [address] [id number] [address] [place] [address], [place] [address] Jan, [facility] [address] [id number] [address] [place] [address], [place] [address] Jan, [facility] [address] [id number] [address] [place] [address], [place] [address] Jan, [facility] [address] [id number] [address] [place] [address], [place] [address] 12 Jan, 2012 [facility] [address] [id number] [address] [place] [address], [place] [address] 12 Jan, 2012 [facility] [address] [id number] [address] [place] [address], [place] [address] 12 Jan, 2012 [facility] [address] [id number] [address] [place] [address], [place] [address] 12 Jan, 2012 [facility] [address] [id number] [address] [place] [address], [place] [address] 16 Dec, 2011 [facility] [address] [id number] [address] [place] [address], [place] [address] 16 Dec, 2011 [facility] [address] [id number] [address] [place] [address], [place] [address] 16 Dec, 2011 [facility] [address] [id number] [address] [place] [address], [place] [address] 16 Dec, 2011 [facility] [address] [id number] [address] [place] [address], [place] [address] 17 Nov, 2011 [facility] [address] [id number] [address] [place] [address], [place] [address] 24 Oct, 2011 [facility] [address] [id number] [address] [place] [address], [place] [address] 14 Aug, 2011 [facility] [address] [id number] [address] [place] [address], [place] [address] 14 Aug, 2011 [facility] [address] [id number] [address] [place] [address], [place] [address] 14 Aug, 2011 [facility] [address] [id number] [address] [place] [address], [place] [address] 13 Aug, 2011 [facility] [address] [id number] [address] [place] [address], [place] [address] 13 Aug, 2011 [facility] [address] [id number] [address] [place] [address], [place] [address] Apr, [facility] [address] [id number] [address] [place] [id number] Apr, [facility] [address] [id number] [address] [place] [id number] Apr, [facility] [address] [id number] [address] [place] [id number] Mar, [facility] [address] [id number] [address] [place] [id number] Mar, [facility] [address] [id number] [address] [place] [id number] Dec, [facility] [address] [id number] [address] [place] [id number] Dec, [facility] [address] [id number] [address] [place] [id number] Dec, IMMUNIZATIONS No Known Immunizations SOCIAL HISTORY Never Assessed REASON FOR VISIT PLAN OF CARE VITAL SIGNS Height 75 in 2013-12-22 Weight 230.5 lbs 2013-12-22 Temperature 96.1 degrees Fahrenheit 2013-12-22 Heart Rate 74 bpm 2013-12-22 Respiratory Rate 20 2013-12-22 Blood pressure systolic 132 mmHg 2013-12-22 Blood pressure diastolic 78 mmHg 2013-12-22 MEDICATIONS Unknown Medications RESULTS No Results PROCEDURES Procedure Date Ordered Result Body Site GLYCATED HEMOGLOBIN TEST Dec 22, 2013 INSTRUCTIONS MEDICATIONS ADMINISTERED No Known Medications MEDICAL (GENERAL) HISTORY Type Description Date Medical History Type 2 diabetes mellitus Medical History Hypercholesteremia Medical History Essential (primary) hypertension Medical History Warthins tumor Medical History CAD (coronary artery disease) Medical History Carotid artery disease Medical History PAD (peripheral artery disease) Medical History Tobacco abuse Surgical History 2 abcesses on left foot 05/18/15 Surgical History varicose vein surgery 1995 Surgical History 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
--- OUTSIDE RECORDS SUMMARY | 2019-06-21 16:26 | XMS REPORT ---
Author Author Nick ABDI Organization [facility] Address [address] [place] [address] Care Team Providers Care Vocational Evaluator Name Role Phone ELVIN ABDI Unavailable PROBLEMS Type Condition ICD9-CM Code UYN80-BC Code Onset Dates Condition S tatus SNOMED Code Problem Impaired circulation I99.9 Active 31328253 Problem Hyperlipidemia E78.5 Active 69736 004 Problem Cigarette nicotine dependence with nicotine-induced di sorder F17.219 Active 98401254 Problem DM neuro manif type II E11.49 Active 95321925 Problem Hammertoe M20.40 Active 880786596 Problem Reactive depression F32.9 Active 48666982 Problem Type 2 diabetes mellitus E11.9 Activ e 59028410 Problem Arthritis M19.90 Active 6332558 Problem Carotid artery disease I77.9 Active 811918956 Problem Hypercholesteremia E78.00 Active 2 15060036 Problem Tobacco abuse Z72.0 Active 437618 05 Problem Restless leg syndrome G25.81 Active 56403858 Problem 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 Active 40798 005 Problem Mild depression F32.0 Active 3104 82459 Problem Essential (primary) hypertension I10 Active 37669218 Problem Left leg claudication I73.9 Active 826143669 Problem PAD (peripheral artery disease) I73.9 Active 231502799 Problem Onychomycosis B35.1 Active 559362 008 Problem Panlobular emphysema J43.1 Active 9985942 Problem Vitamin D deficiency E55.9 Active 46323556 ALLERGIES No Information ENCOUNTERS Encounter Location Date Diagnosis [address] [place] [address] Jul, [facility] [address] [id number] [place] [address] May, [address] [place] [address] 09 Jun, [address] [place] [address] Apr, Type 2 diabetes mellitus E11 .9 ; Essential (primary) hypertension I10 ; Vitamin D deficiency E55.9 and Mild depression F32.0 [facility] [address] [place] [address] Apr, Type 2 diabetes mellitus E11 .[address] [place] [address] Apr, [address] [place] [address] Apr, Flu-like symptoms R68.89 [address] [place] [address] 14 Apr, 2019 Flu-like symptoms R68.89 [address] [place] [address] Jan, Diarrhea, unspecified type R 19.7 [address] [place] [address] Jan, Type 2 diabetes mellitus E11 .9 ; Essential (primary) hypertension I10 ; Restless leg syndrome G25.81 ; Vitamin D deficiency E55.9 ; Diarrhea, unspecified type R19.7 and Encounter for immunization Z23 [address] [place] [address] Jan, Type 2 diabetes mellitus E11 .[address] [place] [address] Oct, Type 2 diabetes mellitus E11 .9 and Essential (primary) hypertension I10 [facility] [address] [id number] [place] [address] Oct, Onychomycosis B35.1 ; Diabetes mellitus E11.9 and Impaired circulation I99.9 [address] [place] [address] Oct, Diabetes mellitus E11.9 and Hypertension I10 [facility] [address] [place] [address] Oct, Hypertension I10 [facility] [address] [place] [address] Sep, [facility] [address] [id number] [place] [address] Sep, [facility] [address] [place] [address] Aug, [facility] [address] [id number] [place] [address] Aug, Panlobular emphysema J43.1 [facility] [place] [address] [place] [address] Aug, Panlobular emphysema J43.1 [facility] [place] [address] [place] [address] Aug, Panlobular emphysema J43.1 [facility] [address] [place] [address] Jul, Encounter for screening for malignant neoplasm of colon Z12.11 ; CAD (coronary artery disease) I25.10 ; Cigarette nicotine dependence with nicotine-induced disorder F17.219 ; Essential (primary) hypertension I10 ; Panlobular emphysema J43.1 and DM neuro manif type II E11.49 [facility] [address] [place] [address] Jul, Type 2 diabetes mellitus E11 .9 [facility] [address] [place] [address] Jul, [facility] [address] [id number] [place] [address] Jul, Onychomycosis B35.1 and DM neuro manif t ype II E11.49 [facility] [address] [id number] [place] [address] June, Diabetes mellitus E11.9 [facility] [place] [address] [place] [address] May, [facility] [address] [facility] [place] [address] Apr, Type 2 diabetes mellitus E11 .9 [...] M20.40 ; Arthritis M19.90 and Hypoglycemia E16.[address] [address] Apr, Diabetes mellitus E11.[address] [address] Apr, Onychomycosis B35.1 ; Impaired circulati on I99.9 and DM neuro manif type II E11.[address] [address] Jan, Diabetes mellitus E11.9 ; Hypertension I 10 and Encounter for immunization Z23 [address] [address] Jan, Diabetes mellitus E11.9 [address] [address] Jan, [address] [address] Jan, [address] [address] Oct, Onychomycosis B35.1 ; DM neuro manif typ e II E11.49 and Impaired circulation I99.9 [facility] [address] [address] Sep, [facility] [address] [address] Aug, Hypoglycemia E16.2 [facility] [address] [address] Aug, [facility] [address] [address] Jul, [facility] [address] [address] Jul, Elevated blood sugar R73.9 and Neck pain M54.2 [facility] [address] [address] Jul, [facility] [address] [address] Jul, Onychomycosis B35.1 and DM neuro manif t ype II E11.49 [facility] [address] [address] Jul, [address] [address] June, Hyperlipidemia E78.5 [address] [address] June, Diabetes mellitus E11.9 ; CAD (coronary artery disease) I25.10 ; Arthritis M19.90 and Hyperlipidemia E78.5 [facility] [address] [address] June, [facility] [address] [address] Apr, Onychomycosis B35.1 ; DM neuro manif typ e II E11.49 and Hammertoe M20.40 [facility] [address] [address] 12 Feb, 2018 Diabetes mellitus E11.9 and Hypertension I10 [address] [address] Mar, Hypertension I10 and Diabetes mellitus E 11.9 [address] [address] Mar, Hypertension I10 and Diabetes mellitus E 11.9 [address] [address] Jan, Onychomycosis B35.1 and DM neuro manif t ype II E11.49 [address] [address] Dec, [address] [address] Dec, [address] [address] Dec, Hypertension I10 and Diabetes mellitus E 11.9 [address] [address] Oct, Encounter for immunization Z23 ; Diabete s mellitus E11.9 ; Hypertension I10 and Cigarette nicotine dependence with nicotine-induced disorder F17.219 [address] [address] Oct, Diabetes mellitus E11.9 [address] [address] Oct, Onychomycosis B35.1 ; DM neuro manif typ e II E11.49 and Hammertoe M20.40 [address] [address] Jul, Diabetes mellitus E11.9 [address] [address] Jul, Onychomycosis B35.1 ; Hammertoe M20.40 a nd DM neuro manif type II E11.49 [address] [address] May, Diabetes mellitus E11.9 [address] [address] May, Diabetes mellitus E11.9 [address] [address] Nov, Diabetes mellitus E11.9 ; Hypertension I 10 ; Reactive depression F32.9 and Encounter for immunization Z23 [address] [address] Oct, Ulcer of other part of foot L97.[address] [address] Sep, Onychomycosis B35.1 ; Ulcer of heel, lef t, with unspecified severity L97.429 and DM neuro manif type II E11.[address] [address] Sep, [address] [address] Sep, Ulcer of heel, left, with unspecified se verity L97.[address] [address] Aug, Onychomycosis B35.1 ; Ulcer of heel, lef t, with unspecified severity L97.429 and DM neuro manif type II E11.[address] [address] Jul, Diabetes mellitus E11.9 ; Hypertension I 10 ; Cigarette nicotine dependence with nicotine-induced disorder F17.219 and CAD (coronary artery disease) I25.[address] [address] Jul, Left leg claudication I73.9 ; Right leg claudication I73.9 ; CAD (coronary artery disease) I25.10 ; Hypertension I10 and Hyperlipidemia E78.[address] [address] Jul, Ulcer of heel, left, with unspecified se verity L97.429 and DM neuro manif type II E11.49 [address] [address] June, Ulcer of heel, left, with unspecified se verity L97.429 and Ulcer of other part of foot L97.509 [address] [address] June, Ulcer of heel, left, with unspecified se verity L97.429 and Ulcer of foot, left, with unspecified severity L97.529 [address] [address] May, [address] [address] May, [address] [address] Apr, DM neuro manif type II E11.49 ; Hyperten yue I10 and Sleep apnea in adult G47.33 [address] [address] Apr, [address] [address] Apr, Ulcer of foot L97.509 and DM neuro manif type II E11.49 [address] [address] Apr, Ulcer of other part of foot L97.509 and DM neuro manif type II E11.49 [address] [address] Apr, Onychomycosis B35.1 ; Ingrown toenail L6 0.0 ; Impaired circulation I99.9 and DM neuro manif type II E11.49 [address] [address] Mar, Ulcer of other part of foot L97.509 ; On ychomycosis B35.1 and Diabetes mellitus E11.9 [address] [address] Dec, Encounter for immunization Z23 ; Hyperte nsion I10 and Diabetes mellitus E11.9 [address] [address] Dec, [address] [address] Dec, CAD (coronary artery disease) I25.10 ; H ypertension I10 ; Left leg claudication I73.9 and Hyperlipidemia E78.5 [address] [address] Nov, Onychomycosis B35.1 and Hammertoe M20.40 [address] [address] Sep, Coronary atherosclerosis of unspecified type of vessel, nome or graft 414.00 [address] [address] Sep, Coronary atherosclerosis of unspecified type of vessel, nome or graft 414.00 and Diabetes 250.00 [address] [address] May, [address] [address] May, [address] [address] Apr, [address] [address] Apr, [address] [address] Apr, [facility] [address] [address] Apr, [address] [address] Mar, [facility] [place] [facility] [address] [id number] [place] [address] Mar, [facility] [place] [facility] [address] [id number] [place] [address] Jan, [facility] [place] [facility] [address] [id number] [place] [address] Jan, [facility] [place] [facility] [address] [id number] [place] [address] Jan, [facility] [place] [facility] [address] [id number] [place] [address] Jan, [facility] [place] [facility] [address] [id number] [place] [address] Jan, [facility] [place] [facility] [address] [id number] [place] [address] Jan, [facility] [place] [facility] [address] [id number] [place] [address] Jan, [facility] [place] [facility] [address] [id number] [place] [address] Jan, [facility] [place] [facility] [address] [id number] [place] [address] Jan, [facility] [place] [facility] [address] [id number] [place] [address] Jan, [facility] [place] [facility] [address] [id number] [place] [address] Jan, [facility] [place] [facility] [address] [id number] [place] [address] Nov, [facility] [place] [facility] [address] [id number] [place] [address] Nov, [facility] [place] [facility] [id number] [place] [address] Nov, [facility] [place] [facility] [address] [id number] [place] [address] Nov, [facility] [place] [facility] [address] [id number] [place] [address] 15 Nov, 2013 [facility] [place] [facility] [address] [facility] [id number] [place] [address] 15 Nov, 2013 [facility] [place] [facility] [address] [facility] [id number] [place] [address] Oct, [facility] [place] [facility] [address] [facility] [id number] [place] [address] Oct, 2013 [facility] [place] [facility] [address] [facility] [id number] [place] [address] Oct, [facility] [place] [facility] [address] [facility] [id number] [place] [address] Oct, [facility] [place] [facility] [address] [facility] [id number] [place] [address] Oct, [facility] [place] [facility] [address] [id number] [place] [address] Oct, [facility] [place] [facility] [address] [id number] [place] [address] Sep, [facility] [place] [facility] [address] [facility] [id number] [place] [address] Sep, [facility] [place] [facility] [address] [id number] [place] [address] Sep, [facility] [place] [facility] [address] [facility] [id number] [place] [address] Sep, [facility] [place] [facility] [address] [id number] [place] [address] Sep, [facility] [place] [facility] [address] [facility] [id number] [place] [address] Sep, [facility] [place] [facility] [address] [facility] [id number] [place] [address] Aug, [facility] [place] [facility] [address] [facility] [id number] [place] [address] Aug, [facility] [place] [facility] [address] [id number] [place] [address] Aug, [facility] [place] [facility] [address] [facility] [id number] [place] [address] Aug, [facility] [place] [facility] [address] [id number] [place] [address] Aug, [facility] [place] [facility] [address] [id number] [place] [address] Aug, [facility] [place] [facility] [address] [id number] [place] [address] Jul, [facility] [place] [facility] [address] [id number] [place] [address] Jul, [facility] [place] [facility] [address] [id number] [place] [address] Jul, [facility] [place] [facility] [address] [id number] [place] [address] Jul, [facility] [place] [facility] [address] [id number] [place] [address] June, [facility] [place] [facility] [address] [id number] [place] [address] June, [facility] [place] [facility] [address] [id number] [place] [address] June, [facility] [place] [facility] [address] [id number] [place] [address] June, [facility] [place] [facility] [address] [id number] [place] [address] May, [facility] [place] [facility] [address] [id number] [place] [address] May, [facility] [place] [facility] [address] [id number] [place] [address] May, [facility] [place] [facility] [address] [id number] [place] [address] May, [facility] [place] [facility] [address] [id number] [place] [address] May, [facility] [place] [facility] [address] [id number] [place] [address] May, [facility] [place] [facility] [address] [id number] [place] [address] Apr, [facility] [place] [facility] [address] [id number] [place] [address] Apr, [facility] [place] [facility] [address] [id number] [place] [address] Apr, [facility] [place] [facility] [address] [id number] [place] [address] Apr, [facility] [place] [facility] [address] [id number] [place] [address] Apr, [facility] [place] [facility] [address] [id number] [place] [address] Apr, [facility] [place] [facility] [address] [id number] [place] [address] Apr, [facility] [place] [facility] [id number] [place] [address] Jan, [facility] [place] [facility] [address] [id number] [place] [address] Jan, [facility] [place] [facility] [id number] [place] [address] Jan, [facility] [place] [facility] [address] [id number] [place] [address] Jan, [facility] [place] [facility] [address] [id number] [place] [address] Jan, [facility] [place] [facility] [address] [id number] [place] [address] Jan, [facility] [place] [facility] [address] [id number] [place] [address] Dec, [facility] [place] [facility] [address] [id number] [place] [address] Dec, [facility] [place] [facility] [address] [id number] [place] [address] Dec, [facility] [place] [facility] [address] [id number] [place] [address] Dec, [facility] [place] [facility] [address] [id number] [place] [address] Dec, [facility] [place] [facility] [address] [id number] [place] [address] Dec, [facility] [place] [facility] [address] [id number] [place] [address] Nov, [facility] [place] [facility] [address] [id number] [place] [address] Oct, [facility] [place] [facility] [address] [id number] [place] [address] Oct, [facility] [place] [facility] [address] [id number] [place] [address] Aug, [facility] [place] [facility] [address] [id number] [place] [address] Aug, [facility] [place] [facility] [id number] [place] [address] Jul, [facility] [place] [facility] [address] [id number] [place] [address] June, [facility] [place] [facility] [id number] [place] [address] Apr, [facility] [place] [facility] [address] [id number] [place] [address] Apr, [facility] [place] [facility] [id number] [place] [address] Apr, [facility] [place] [facility] [address] [id number] [place] [address] Apr, [facility] [place] [facility] [id number] [place] [address] Mar, [facility] [place] [facility] [address] [id number] [place] [address] Jan, [facility] [place] [facility] [address] [id number] [place] [address] Jan, [facility] [place] [facility] [address] [id number] [place] [address] 13 Jan, 2012 [facility] [place] [facility] [address] [id number] [place] [address] Jan, [facility] [place] [facility] [address] [id number] [place] [address] 12 Jan, 2012 [facility] [place] [facility] [address] [id number] [place] [address] Jan, [facility] [place] [facility] [address] [id number] [place] [address] Jan, [facility] [place] [facility] [address] [id number] [place] [address] Jan, [facility] [place] [facility] [address] [id number] [place] [address] 16 Dec, 2011 [facility] [place] [facility] [address] [id number] [place] [address] 16 Dec, 2011 [facility] [place] [facility] [address] [id number] [place] [address] 16 Dec, 2011 [facility] [place] [facility] [address] [id number] [place] [address] 16 Dec, 2011 [facility] [place] [facility] [address] [id number] [place] [address] 17 Nov, 2011 [facility] [place] [facility] [address] [id number] [place] [address] 24 Oct, 2011 [facility] [place] [facility] [address] [id number] [place] [address] 14 Aug, 2011 [facility] [place] [facility] [address] [facility] [id number] [place] [address] 14 Aug, 2011 [facility] [address] [facility] [id number] [place] [address] 14 Aug, 2011 [facility] [address] [facility] [id number] [place] [address] 13 Aug, 2011 [facility] [address] [facility] [id number] [place] [address] Jul, [facility] [address] [facility] [id number] [place] [address] Apr, [facility] [address] [facility] [id number] [place] [address] Apr, [facility] [address] [address] [id number] [place] [address] Apr, [facility] [id number] [place] [address] Mar, [facility] [id number] [place] [address] Mar, [facility] [id number] [place] [address] Dec, [facility] [address] [facility] [id number] [place] [address] Dec, [facility] [address] [facility] [id number] [place] [address] Dec, IMMUNIZATIONS No Known Immunizations SOCIAL HISTORY Never Assessed REASON FOR VISIT PLAN OF CARE VITAL SIGNS MEDICATIONS Unknown Medications RESULTS No Results PROCEDURES No Known procedures INSTRUCTIONS MEDICATIONS ADMINISTERED No Known Medications MEDICAL [...]
--- OUTSIDE RECORDS SUMMARY | 2019-06-21 16:26 | XMS REPORT ---
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 Name Role Phone ELVIN ABDI Unavailable PROBLEMS Type Condition ICD9-CM Code DKE18-TN Code Onset Dates Condition S tatus SNOMED Code Problem Impaired circulation I99.9 Active 38445985 Problem Hyperlipidemia E78.5 Active 99768 004 Problem Cigarette nicotine dependence with nicotine-induced di sorder F17.219 Active 28812696 Problem DM neuro manif type II E11.49 Active 09996672 Problem Hammertoe M20.40 Active 870926774 Problem Reactive depression F32.9 Active 53323003 Problem Type 2 diabetes mellitus E11.9 Activ e 72031337 Problem Arthritis M19.90 Active 1150919 Problem Carotid artery disease I77.9 Active 602581551 Problem Hypercholesteremia E78.00 Active 2 73330562 Problem Tobacco abuse Z72.0 Active 119857 05 Problem Restless leg syndrome G25.81 Active 36460791 Problem 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 Active 81397 005 Problem Mild depression F32.0 Active 3104 69333 Problem Essential (primary) hypertension I10 Active 62716348 Problem Left leg claudication I73.9 Active 350053754 Problem PAD (peripheral artery disease) I73.9 Active 186866072 Problem Onychomycosis B35.1 Active 801234 008 Problem Panlobular emphysema J43.1 Active 9301236 Problem Vitamin D deficiency E55.9 Active 22226291 ALLERGIES No Information ENCOUNTERS Encounter Location Date Diagnosis [facility] [address] [facility] [address] [id number] [address] Jul, [facility] [address] [facility] [id number] [address] [place] [address] May, [facility] [address] [facility] [address] [id number] [address] May, [address] [id number] [place] [address] Apr, Type 2 diabetes mellitus E11 .9 ; Essential (primary) hypertension I10 ; Vitamin D deficiency E55.9 and Mild depression F32.[address] [id number] [address] Apr, Type 2 diabetes mellitus E11 .[address] 340 [id number] [address] Apr, [address] [id number], [place] [address] Apr, Flu-like symptoms R68.[address] [id number] [address] Apr, Flu-like symptoms R68.[address] [id number] [address] Jan, Diarrhea, unspecified type R 19.[address] [id number] [address] Jan, Type 2 diabetes mellitus E11 .9 ; Essential (primary) hypertension I10 ; Restless leg syndrome G25.81 ; Vitamin D deficiency E55.9 ; Diarrhea, unspecified type R19.7 and Encounter for immunization Z23 [address] [id number], [place] [address] Jan, Type 2 diabetes mellitus E11 .[address] 340[address] [id number], [place] [address] Oct, Type 2 diabetes mellitus E11 .9 and Essential (primary) hypertension I10 [facility] [address] [facility] [id number] [address] [place] [address] Oct, Onychomycosis B35.1 ; Diabet es mellitus E11.9 and Impaired circulation I99.[address] 340B [id number] [place] [address] Oct, Diabetes mellitus E11.9 and Hypertension I10 [facility] [place]AME[place] [address] 340B [id number] [place] [address] Oct, Hypertension I10 [facility] [place] [address] 340B [id number] [place] [address] Sep, [facility] [address] [id number] [address] [place] [address] Sep, [facility] [place] [address] 340B [id number] [place] [address] Aug, [facility] [address] [id number] [address] [place] [address] Aug, Panlobular emphysema J43.1 [facility] [address] 340B [id number] [place] [address] Aug, Panlobular emphysema J43.1 [facility] [place] G[place] [address] 340[address] [id number], [place] [address] Aug, Panlobular emphysema J43.1 [facility] [place] [address] 340[address] [id number], [place] [address] Jul, Encounter for screening for malignant neoplasm of colon Z12.11 ; CAD (coronary artery disease) I25.10 ; Cigarette nicotine dependence with nicotine-induced disorder F17.219 ; Essential (primary) hypertension I10 ; Panlobular emphysema J43.1 and DM neuro manif type II E11.49 [facility] [place] GAMEZ [address] 340B [id number] [place] [address] Jul, Type 2 diabetes mellitus E11 .9 [facility] [place] [address] 340B [id number] [address] Jul, [facility] [address] [id number] [place] [address] Jul, Onychomycosis B35.1 and DM n euro manif type II E11.49 [facility] [address] [facility] [id number] [address] [place] [address] June, Diabetes mellitus E11.[address] 340B [id number] [place] [address] May, [address] 340B [id number] [place] [address] Apr, Type 2 diabetes mellitus E11 .9 [...] M20.40 ; Arthritis M19.90 and Hypoglycemia E16.2 [place] [address] [place] [id number] [address] [place] [address] Apr, Diabetes mellitus E11.9 [place] [address] [place] [id number] [address] [place] [address] Apr, Onychomycosis B35.1 ; Impair ed circulation I99.9 and DM neuro manif type II E11.49 [place] [address] [facility] [id number] [address] [place] [address] Jan, Diabetes mellitus E11.9 ; Hy pertension I10 and Encounter for immunization Z23 [place] [address] [place] [id number] [address] [place] [address] Jan, Diabetes mellitus E11.9 [place] [address] [place] [id number] [address] [place] [address] Jan, [place] [address] [place] [id number] [address] [place] [address] Jan, [facility] [address] [facility] [id number] [address] [place] [address] Oct, Onychomycosis B35.1 ; DM chuck ro manif type II E11.49 and Impaired circulation I99.9 [facility] [address] [id number] [address] [place] [address] Sep, [facility] [address] [facility] [id number] [address] [place] [address] Aug, Hypoglycemia E16.2 [facility] [address] [facility] [id number] [address] [place] [address] Aug, [facility] [address] [facility] [id number] [address] [place] [address] Jul, [facility] [address] [facility] [id number] [address] [place] [address] Jul, Elevated blood sugar R73.9 a nd Neck pain M54.2 [facility] [address] [id number] [address] [place] [address] Jul, [facility] [address] [facility] [id number] [address] [place] [address] Jul, Onychomycosis B35.1 and DM n euro manif type II E11.49 [facility] [address] [facility] [id number] [address] [place] [address] Jul, [facility] [address] [facility] [id number] [address] [place] [address] June, Hyperlipidemia E78.5 [facility] [address] [facility] [id number] [address] [place] [address] June, Diabetes mellitus E11.9 ; CA D (coronary artery disease) I25.10 ; Arthritis M19.90 and Hyperlipidemia E78.5 [facility] [address] [facility] [id number] [address] [place] [address] June, [facility] [address] [facility] [id number] [address] [place] [address] Apr, Onychomycosis B35.1 ; DM chuck ro manif type II E11.49 and Hammertoe M20.40 [place] [address] [place] [id number] [address] [place] [address] Apr, Diabetes mellitus E11.9 and Hypertension I10 [place] [address] [place] [id number] [address] [place] [address] Mar, Hypertension I10 and Diabete s mellitus E11.9 [place] [address] [facility] [id number] [address] [place] [address] Mar, Hypertension I10 and Diabete s mellitus E11.9 [place] [address] [place] [id number] [address] [place] [address] Jan, Onychomycosis B35.1 and DM n euro manif type II E11.49 [place] [address] [place] [id number] [address] [place] [address] Dec, [place] [address] [place] [id number] [address] [place] [address] Dec, [place] [address] [place] [id number] [place] [address] Dec, Hypertension I10 and Diabete s mellitus E11.9 [place] [address] [place] [id number] [address] [place] [address] Oct, Encounter for immunization Z 23 ; Diabetes mellitus E11.9 ; Hypertension I10 and Cigarette nicotine dependence with nicotine-induced disorder F17.219 [place] [address] [place] [id number] [address] [place] [address] Oct, Diabetes mellitus E11.9 [place] [address] [place] [id number] [address] [place] [address] Oct, Onychomycosis B35.1 ; DM chuck ro manif type II E11.49 and Hammertoe M20.40 [place] [address] [place] [id number] [address] [place] [address] Jul, Diabetes mellitus E11.9 [place] [address] [id number] [address] [place] [address] Jul, Onychomycosis B35.1 ; Hammer toe M20.40 and DM neuro manif type II E11.49 [place] [address] [id number] [address] [place] [address] May, Diabetes mellitus E11.9 [place] [address] [id number] [address] [place] [address] May, Diabetes mellitus E11.9 [place] [address] [id number] [address] [place] [address] Nov, Diabetes mellitus E11.9 ; Hy pertension I10 ; Reactive depression F32.9 and Encounter for immunization Z23 [place] [address] [id number] [address] [place] [address] Oct, Ulcer of other part of foot L97.509 [place] [address] [id number] [address] [place] [address] Sep, Onychomycosis B35.1 ; Ulcer of heel, left, with unspecified severity L97.429 and DM neuro manif type II E11.49 [place] [address] [id number] [address] [place] [address] Sep, [place] [address] [id number] [address] [place] [address] Sep, Ulcer of heel, left, with un specified severity L97.429 [place] [address] [id number] [address] [place] [address] Aug, Onychomycosis B35.1 ; Ulcer of heel, left, with unspecified severity L97.429 and DM neuro manif type II E11.49 [place] [address] [id number] [address] [place] [address] Jul, Diabetes mellitus E11.9 ; Hy pertension I10 ; Cigarette nicotine dependence with nicotine-induced disorder F17.219 and CAD (coronary artery disease) I25.10 [facility] [address] [id number] [address] [place] [address] Jul, Left leg claudication I73.9 ; Right leg claudication I73.9 ; CAD (coronary artery disease) I25.10 ; Hypertension I10 and Hyperlipidemia E78.5 [facility] [address] [id number] [address] [place] [address] Jul, Ulcer of heel, left, with un specified severity L97.429 and DM neuro manif type II E11.49 [facility] [address] [id number] [address] [place] [address] June, Ulcer of heel, left, with un specified severity L97.429 and Ulcer of other part of foot L97.509 [place] [address] [facility] [id number] [address] [place] [address] June, Ulcer of heel, left, with un specified severity L97.429 and Ulcer of foot, left, with unspecified severity L97.529 [place] [address] [facility] [id number] [address] [place] [address] May, [facility] [address] [id number] [address] [place] [address] May, [facility] [address] [id number] [address] [place] [address] Apr, DM neuro manif type II E11.4 9 ; Hypertension I10 and Sleep apnea in adult G47.33 [facility] [address] [id number] [address] [place] [address] Apr, [facility] [address] [id number] [address] [place] [address] Apr, Ulcer of foot L97.509 and DM neuro manif type II E11.49 [facility] [address] [id number] [address] [place] [address] Apr, Ulcer of other part of foot L97.509 and DM neuro manif type II E11.49 [facility] [address] [facility] [id number] [address] [place] [address] 12 Apr, 2015 Onychomycosis B35.1 ; Ingrow n toenail L60.0 ; Impaired circulation I99.9 and DM neuro manif type II E11.49 [place] [address] [facility] [id number] [address] [place] [address] 08 Mar, 2015 Ulcer of other part of foot L97.509 ; Onychomycosis B35.1 and Diabetes mellitus E11.9 [place] [address] [facility] [id number] [address] [place] [address] Dec, Encounter for immunization Z 23 ; Hypertension I10 and Diabetes mellitus E11.9 [place] [id number] [address] [place] [address] Dec, [place] [id number] [place] [address] Dec, CAD (coronary artery disease ) I25.10 ; Hypertension I10 ; Left leg claudication I73.9 and Hyperlipidemia E78.5 [place] [id number] [place] [address] Nov, Onychomycosis B35.1 and Vin ertoe M20.40 [place] [id number] [address] [place] [address] Sep, Coronary atherosclerosis of unspecified type of vessel, [place] or graft 414.00 [place] [address] [facility] [id number] [address] [place] [address] Sep, Coronary atherosclerosis of unspecified type of vessel, [place] or graft 414.00 and Diabetes 250.00 [place] [address] [facility] [id number] [address] [place] [address] 14 May, 2014 [place] [address] [place] [id number] [address] [place] [address] May, [place] [address] [place] [id number] [address] [place] [address], [place] [address] Apr, [facility] [address] [id number] [address] [place] [address], [place] [address] Apr, [facility] [address] [id number] [address] [place] [address], [place] [address] Apr, [facility] [address] [id number] [address] [place] [address], [place] [address] Apr, [facility] [address] [id number] [address] [place] [address], [place] [address] Mar, [facility] [address] [id number] [address] [place] [address], [place] [address] Mar, [facility] [address] [id number] [address] [place] [address], [place] [address] Jan, [facility] [address] [id number] [address] [place] [address], [place] [address] Jan, [facility] [address] [id number] [address] [place] [address], [place] [address] Jan, [facility] [address] [id number] [address] [place] [address], [place] [address] Jan, [facility] [address] [id number] [address] [place] [address], [place] [address] Jan, [facility] [address] [id number] [address] [place] [address], [place] [address] Jan, [facility] [address] [id number] [address] [place] [address], [place] [address] Jan, [facility] [address] [id number] [address] [place] [address], [place] [address] Jan, [facility] [address] [id number] [address] [place] [address], [place] [address] Jan, [facility] [address] [id number] [address] [place] [address], [place] [address] Jan, [facility] [address] [id number] [address] [place] [address], [place] [address] Jan, [facility] [address] [id number] [address] [place] [address], [place] [address] Nov, [facility] [address] [id number] [address] [place] [address], [place] [address] Nov, [facility] [address] [id number] [address] [place] [address], [place] [address] Nov, [facility] [address] [id number] [address] [place] [address], [place] [address] Nov, [facility] [address] [id number] [address] [place] [address], [place] [address] Nov, [facility] [address] [id number] [address] [place] [address], [place] [address] Nov, [facility] [address] [id number] [address] [place] [address], [place] [address] Oct, [facility] [address] [id number] [address] [place] [address], [place] [address] Oct, [facility] [address] [id number] [address] [place] [address], [place] [address] Oct, [facility] [address] [id number] [address] [place] [address], [place] [address] Oct, [facility] [address] [id number] [address] [place] [address], [place] [address] Oct, [facility] [address] [id number] [address] [place] [address], [place] [address] Oct, [facility] [address] [id number] [address] [place] [address], [place] [address] Sep, [facility] [address] [id number] [address] [place] [address] Sep, [facility] [address] [id number] [address] [place] [address] Sep, [facility] [address] [id number] [address] [place] [address], [place] [address] Sep, [facility] [address] [id number] [address] [place] [address], [place] [address] Sep, [facility] [address] [id number] [address] [place] [address], [place] [address] Sep, [facility] [address] [id number] [address] [place] [address], [place] [address] Aug, [facility] [address] [id number] [address] [place] [address], [place] [address] Aug, [facility] [address] [id number] [address] [place] [address], [place] [address] Aug, [facility] [address] [id number] [address] [place] [address], [place] [address] Aug, [facility] [address] [id number] [address] [place] [address], [place] [address] Aug, [facility] [address] [id number] [address] [place] [address], [place] [address] Aug, [facility] [address] [id number] [address] [place] [address], [place] [address] Jul, [facility] [address] [id number] [address] [place] [address], [place] [address] Jul, [facility] [address] [id number] [address] [place] [address], [place] [address] Jul, [facility] [address] [id number] [address] [place] [address], [place] [address] Jul, [facility] [address] [id number] [address] [place] [address], [place] [address] June, [facility] [address] [id number] [address] [place] [address], [place] [address] June, [facility] [address] [id number] [address] [place] [address], [place] [address] June, [facility] [address] [id number] [address] [place] [address], [place] [address] June, [facility] [address] [id number] [address] [place] [address], [place] [address] May, [facility] [address] [id number] [address] [place] [address], [place] [address] May, [facility] [address] [id number] [address] [place] [address], [place] [address] May, [facility] [address] [id number] [address] [place] [address], [place] [address] May, [facility] [address] [id number] [address] [place] [address], [place] [address] May, [facility] [address] [id number] [address] [place] [address], [place] [address] May, [facility] [address] [id number] [address] [place] [address], [place] [address] Apr, [facility] [address] [id number] [address] [place] [address], [place] [address] Apr, [facility] [address] [id number] [address] [place] [address], [place] [address] Apr, [facility] [address] [id number] [address] [place] [address], [place] [address] Apr, [facility] [address] [id number] [address] [place] [address], [place] [address] Apr, [facility] [address] [id number] [address] [place] [address], [place] [address] Apr, [facility] [address] [id number] [address] [place] [address], [place] [address] Apr, [facility] [address] [id number] [address] [place] [address], [place] [address] Jan, [facility] [address] [id number] [address] [place] [address], [place] [address] Jan, [facility] [address] [id number] [address] [place] [address], [place] [address] Jan, [facility] [address] [id number] [address] [place] [address], [place] [address] Jan, [facility] [address] [id number] [address] [place] [address], [place] [address] Jan, [facility] [address] [id number] [address] [place] [address], [place] [address] Jan, [facility] [address] [id number] [address] [place] [id number] Dec, [facility] [address] [id number] [address] [place] [address], [place] [address] Dec, [facility] [address] [id number] [address] [place] [id number] Dec, [facility] [address] [id number] [address] [place] [address], [place] [address] Dec, [facility] [address] [id number] [address] [place] [phone] Dec, [facility] [address] [id number] [address] [place] [id number] Dec, [facility] [address] [id number] [address] [place] [phone] Nov, [facility] [address] [id number] [address] [place] [address], [place] [address] Oct, [facility] [address] [id number] [address] [place] [phone] Oct, [facility] [address] [id number] [address] [place] [phone] Aug, [facility] [address] [id number] [address] [place] [address], [place] [address] Aug, [facility] [address] [id number] [address] [place] [address], [place] [address] Jul, [facility] [address] [id number] [address] [place] [address], [place] [address] June, [facility] [address] [address] [id number] [address] [place] [address], [place] [address] Apr, [facility] [address] [id number] [address] [place] [address], [place] [address] Apr, [facility] [address] [id number] [address] [place] [address], [place] [address] Apr, [facility] [address] [id number] [address] [place] [address], [place] [address] Apr, [facility] [address] [id number] [address] [place] [address], [place] [address] Mar, [facility] [address] [id number] [address] [place] [address], [place] [address] Jan, [facility] [address] [id number] [address] [place] [address], [place] [address] Jan, [facility] [address] [id number] [address] [place] [address], [place] [address] Jan, [facility] [address] [id number] [address] [place] [address], [place] [address] Jan, [facility] [address] [id number] [address] [place] [address], [place] [address] Jan, [facility] [address] [id number] [address] [place] [address], [place] [address] Jan, [facility] [address] [id number] [address] [place] [address], [place] [address] Jan, [facility] [address] [id number] [address] [place] [address], [place] [address] Jan, [facility] [address] [id number] [address] [place] [address], [place] [address] 16 Dec, 2011 [facility] [address] [id number] [address] [place] [address], [place] [address] 16 Dec, 2011 [facility] [address] [id number] [address] [place] [address], [place] [address] 16 Dec, 2011 [facility] [address] [id number] [address] [place] [address], [place] [address] 16 Dec, 2011 [facility] [address] [id number] [address] [place] [address], [place] [address] 17 Nov, 2011 [facility] [address] [id number] [address] [place] [address], [place] [address] 24 Oct, 2011 [facility] [address] [id number] [address] [place] [address], [place] [address] 14 Aug, 2011 [facility] [address] [id number] [address] [place] [address], [place] [address] 14 Aug, 2011 [facility] [address] [id number] [address] [place] [address], [place] [address] 14 Aug, 2011 [facility] [address] [id number] [address] [place] [address], [place] [address] 13 Aug, 2011 [facility] [address] [id number] [address] [place] [address], [place] [address] 13 Aug, 2011 [facility] [address] [id number] [address] [place] [address], [place] [address] 20 May, 2011 [facility] [address] [id number] [address] [place] [address], [place] [address] 16 Apr, 2011 [facility] [address] [id number] [address] [place] [address], [place] [address] 16 Apr, 2011 [facility] [address] [id number] [address] [place] [address], [place] [address] Mar, [facility] [address] [id number] [address] [place] [address] Mar, [facility] [address] [facility] [id number] [address] [place] [address] Dec, [facility] [address] [facility] [id number] [address] [place] [address] Dec, [facility] [address] [facility] [id number] [address] [place] [address] Dec, IMMUNIZATIONS No Known Immunizations SOCIAL HISTORY [...]
--- OUTSIDE RECORDS SUMMARY | 2019-06-21 16:27 | XMS REPORT ---
Author Author Nick Roberts Doctor Organization [facility] Address Unknown Phone Unavailable Care Team Providers Care Outside Rigger Name Role Phone Migration, Doctor Unavailable Unavailable PROBLEMS Type Condition ICD9-CM Code ZAH56-FU Code Onset Dates Condition S tatus SNOMED Code Problem Hyperlipidemia E78.5 Active 30264 004 Problem Left leg claudication I73.9 Active 527718216 Problem DM neuro manif type II E11.49 Active 07821197 Problem Impaired circulation I99.9 Active 48671605 Problem Reactive depression F32.9 Active 07753235 Problem Cigarette nicotine dependence with nicotine-induced di sorder F17.219 Active 49407453 Problem Arthritis M19.90 Active 9860210 Problem Hammertoe M20.40 Active 131178653 Problem Hypercholesteremia E78.00 Active 2 71250342 Problem Type 2 diabetes mellitus E11.9 Activ e 48765448 Problem Essential (primary) hypertension I10 Active 06353498 Problem Vitamin D deficiency E55.9 Active 51282052 Problem Carotid artery disease I77.9 Active 801575109 Problem Restless leg syndrome G25.81 Active 35034708 Problem 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 Active 08892 005 Problem Tobacco abuse Z72.0 Active 665789 05 Problem PAD (peripheral artery disease) I73.9 Active 293530297 Problem Onychomycosis B35.1 Active 030620 008 Problem Panlobular emphysema J43.1 Active 2876960 ALLERGIES No Information ENCOUNTERS Encounter Location Date Diagnosis [facility] [address] [facility] [id number] [place] [address] May, [address] [place] [address] Apr, [address] [place] [address] Apr, [address] [place] [address] Apr, Flu-like symptoms R68.89 [address] [place] [address] 14 Apr, 2019 Flu-like symptoms R68.89 [address] [place] [address] Jan, Diarrhea, unspecified type R 19.7 [address] [place] [address] Jan, Type 2 diabetes mellitus E11 .9 ; Essential (primary) hypertension I10 ; Restless leg syndrome G25.81 ; Vitamin D deficiency E55.9 ; Diarrhea, unspecified type R19.7 and Encounter for immunization Z23 [address] [place] [address] Jan, Type 2 diabetes mellitus E11 .9 [address] [place] [address] Oct, Type 2 diabetes mellitus E11 .9 and Essential (primary) hypertension I10 [facility] [address] [facility] [place] [address] Oct, Onychomycosis B35.1 ; Diabetes mellitus E11.9 and Impaired circulation I99.[address] [place] [address] Oct, Diabetes mellitus E11.9 and Hypertension I10 [address] [place] [address] Oct, Hypertension I10 [address] [place] [address] Sep, [facility] [id number] [place] [address] Sep, [address] [place] [address] Aug, [facility] [address] [facility] [place] [address] Aug, Panlobular emphysema J43.[address] [place] [address] Aug, Panlobular emphysema J43.[address] [place] [address] Aug, Panlobular emphysema J43.[address] [place] [address] Jul, Encounter for screening for malignant neoplasm of colon Z12.11 ; CAD (coronary artery disease) I25.10 ; Cigarette nicotine dependence with nicotine-induced disorder F17.219 ; Essential (primary) hypertension I10 ; Panlobular emphysema J43.1 and DM neuro manif type II E11.[address] [place] [address] Jul, Type 2 diabetes mellitus E11 .[address] [place] [address] Jul, [facility] [address] [facility] [place] [address] Jul, Onychomycosis B35.1 and DM neuro manif t ype II E11.49 [facility] [address] [facility] [place] [address] June, Diabetes mellitus E11.9 [address] [place] [address] May, [address] [place] [address] Apr, Type 2 diabetes mellitus E11 .9 [...] M20.40 ; Arthritis M19.90 and Hypoglycemia E16.2 [facility] [address] [address] Apr, Diabetes mellitus E11.9 [place] [address] [address] Apr, Onychomycosis B35.1 ; Impaired circulati on I99.9 and DM neuro manif type II E11.49 [place] [address] [address] Jan, Diabetes mellitus E11.9 ; Hypertension I 10 and Encounter for immunization Z23 [place] [address] [address] Jan, Diabetes mellitus E11.9 [address] [place] [address] [address] Jan, [address] [address] [address] Jan, [place] [address] [address] Oct, Onychomycosis B35.1 ; DM neuro manif typ e II E11.49 and Impaired circulation I99.9 [place] [address] [address] Sep, [place] [address] [address] Aug, Hypoglycemia E16.2 [place] [address] [address] Aug, [place] [address] [address] Jul, [place] [address] [address] Jul, Elevated blood sugar R73.9 and Neck pain M54.2 [place] [address] [address] Jul, [place] [address] [address] Jul, Onychomycosis B35.1 and DM neuro manif t ype II E11.49 [place] [address] [address] Jul, [place] [address] [address] June, Hyperlipidemia E78.[address] [address] June, Diabetes mellitus E11.9 ; CAD (coronary artery disease) I25.10 ; Arthritis M19.90 and Hyperlipidemia E78.[address] [address] June, [place] [address] [address] Apr, Onychomycosis B35.1 ; DM neuro manif typ e II E11.49 and Hammertoe M20.[address] [address] Apr, Diabetes mellitus E11.9 and Hypertension I10 [address] [address] Mar, Hypertension I10 and Diabetes mellitus E 11.9 [place] [address] [address] Mar, Hypertension I10 and Diabetes mellitus E 11.[address] [address] Jan, Onychomycosis B35.1 and DM neuro manif t ype II E11.49 [place] [address] [address] Dec, [place] [address] [address] Dec, [place] [address] [address] Dec, Hypertension I10 and Diabetes mellitus E 11.9 [place] [address] [address] Oct, Encounter for immunization Z23 ; Diabete s mellitus E11.9 ; Hypertension I10 and Cigarette nicotine dependence with nicotine-induced disorder F17.219 [place] [address] [address] Oct, Diabetes mellitus E11.9 [place] [address] [address] Oct, Onychomycosis B35.1 ; DM neuro manif typ e II E11.49 and Hammertoe M20.40 [place] [address] [address] Jul, Diabetes mellitus E11.9 [place] [address] [address] Jul, Onychomycosis B35.1 ; Hammertoe M20.40 a nd DM neuro manif type II E11.49 [place] [address] [address] 24 May, 2016 Diabetes mellitus E11.9 [place] [address] [address] May, Diabetes mellitus E11.9 [place] [address] [address] Nov, Diabetes mellitus E11.9 ; Hypertension I 10 ; Reactive depression F32.9 and Encounter for immunization Z23 [place] [address] [address] Oct, Ulcer of other part of foot L97.509 [place] [address] [address] Sep, Onychomycosis B35.1 ; Ulcer of heel, lef t, with unspecified severity L97.429 and DM neuro manif type II E11.49 [place] [address] Sep, [address] [address] Sep, Ulcer of heel, left, with unspecified se verity L97.[address] [address] Aug, Onychomycosis B35.1 ; Ulcer of heel, lef t, with unspecified severity L97.429 and DM neuro manif type II E11.[address] [address] Jul, Diabetes mellitus E11.9 ; Hypertension I 10 ; Cigarette nicotine dependence with nicotine-induced disorder F17.219 and CAD (coronary artery disease) I25.[address] [address] Jul, Left leg claudication I73.9 ; Right leg claudication I73.9 ; CAD (coronary artery disease) I25.10 ; Hypertension I10 and Hyperlipidemia E78.[address] [address] Jul, Ulcer of heel, left, with unspecified se verity L97.429 and DM neuro manif type II E11.[address] [address] June, Ulcer of heel, left, with unspecified se verity L97.429 and Ulcer of other part of foot L97.[address] [address] June, Ulcer of heel, left, with unspecified se verity L97.429 and Ulcer of foot, left, with unspecified severity L97.[address] [address] May, [place] [address] [address] May, [address] [address] Apr, DM neuro manif type II E11.49 ; Hyperten yue I10 and Sleep apnea in adult G47.[address] [address] Apr, [address] [address] Apr, Ulcer of foot L97.509 and DM neuro manif type II E11.[address] [address] Apr, Ulcer of other part of foot L97.509 and DM neuro manif type II E11.[address] [address] Apr, Onychomycosis B35.1 ; Ingrown toenail L6 0.0 ; Impaired circulation I99.9 and DM neuro manif type II E11.[address] [address] Mar, Ulcer of other part of foot L97.509 ; On ychomycosis B35.1 and Diabetes mellitus E11.[address] [address] Dec, Encounter for immunization Z23 ; Hyperte nsion I10 and Diabetes mellitus E11.[address] [address] Dec, [address] [address] Dec, CAD (coronary artery disease) I25.10 ; H ypertension I10 ; Left leg claudication I73.9 and Hyperlipidemia E78.[address] [address] Nov, Onychomycosis B35.1 and Hammertoe M20.40 [facility] [id number] [place] [address] Sep, Coronary atherosclerosis of unspecified type of vessel, chickaloon or graft 414.00 [facility] [id number] [place] [address] Sep, Coronary atherosclerosis of unspecified type of vessel, chickaloon or graft 414.00 and Diabetes 250.00 [facility] [id number] [place] [address] May, [facility] [address] [address] May, [facility] [id number] [place] [address] Apr, [facility] [address] [address] Apr, [facility] [address] [address] Apr, [facility] [id number] [place] [address] Apr, [facility] [id number] [place] [address] Mar, [facility] [id number] [place] [address] Mar, [facility] [id number] [place] [address] Jan, [facility] [id number] [place] [address] Jan, [facility] [id number] [place] [address] Jan, [facility] [id number] [place] [address] Jan, [facility] [id number] [place] [address] Jan, [facility] [address] [id number] [place] [address] Jan, [facility] [address] [id number] [place] [address] Jan, [facility] [address] [id number] [place] [address] Jan, [facility] [address] [id number] [place] [address] Jan, [facility] [address] [id number] [place] [address] Jan, [facility] [address] [id number] [place] [address] Jan, [facility] [address] [id number] [place] [address] Nov, [facility] [address] [id number] [place] [address] Nov, [facility] [address] [id number] [place] [address] Nov, [facility] [address] [id number] [place] [address] Nov, [facility] [address] [id number] [place] [address] Nov, [facility] [address] [id number] [place] [address] Nov, [facility] [address] [id number] [place] [address] Oct, [facility] [address] [id number] [place] [address] Oct, [facility] [address] [id number] [place] [address] Oct, [facility] [address] [id number] [place] [address] Oct, [facility] [address] [id number] [place] [address] 05 Oct, 2013 [facility] [address] [id number] [place] [address] Oct, [facility] [address] [facility] [id number] [place] [address] Sep, [facility] [address] [id number] [place] [address] Sep, [facility] [address] [id number] [place] [address] Sep, [facility] [address] [facility] [id number] [place] [address] Sep, [facility] [address] [id number] [place] [address] Sep, [facility] [address] [id number] [place] [address] Sep, [facility] [address] [id number] [place] [address] Aug, [facility] [address] [facility] [id number] [place] [address] Aug, [facility] [address] [id number] [place] [address] Aug, [facility] [address] [id number] [place] [address] Aug, [facility] [address] [id number] [place] [address] Aug, [facility] [address] [facility] [id number] [place] [address] Aug, [facility] [address] [id number] [place] [address] Jul, [facility] [address] [id number] [place] [address] Jul, [facility] [address] [id number] [place] [address] Jul, [facility] [address] [id number] [place] [address] Jul, [facility] [address] [id number] [place] [address] June, [facility] [address] [id number] [place] [address] June, [facility] [address] [id number] [place] [address] June, [facility] [address] [id number] [place] [address] June, [facility] [address] [id number] [place] [address] May, [facility] [address] [id number] [place] [address] May, [facility] [address] [id number] [place] [address] May, [facility] [address] [id number] [place] [address] May, [facility] [address] [id number] [place] [address] May, [facility] [address] [id number] [place] [address] May, [facility] [address] [id number] [place] [address] Apr, [facility] [address] [id number] [place] [address] Apr, [facility] [address] [id number] [place] [address] Apr, [facility] [address] [id number] [place] [address] Apr, [facility] [address] [id number] [place] [address] Apr, [facility] [address] [id number] [place] [address] 05 Apr, 2013 [facility] [address] [id number] [place] [address] Apr, [facility] [address] [id number] [place] [address] Jan, [facility] [address] [id number] [place] [address] Jan, [facility] [id number] [place] [address] Jan, [facility] [address] [id number] [place] [address] Jan, [facility] [address] [id number] [place] [address] Jan, [facility] [address] [id number] [place] [address] Jan, [facility] [id number] [place] [address] Dec, [facility] [address] [id number] [place] [address] Dec, [facility] [id number] [place] [address] Dec, [facility] [address] [id number] [place] [address] Dec, [facility] [id number] [place] [address] Dec, [facility] [address] [id number] [place] [address] Dec, [facility] [id number] [place] [address] Nov, [facility] [address] [id number] [place] [address] Oct, [facility] [address] [id number] [place] [address] Oct, [facility] [address] [id number] [place] [address] Aug, [facility] [address] [id number] [place] [address] Aug, [facility] [address] [id number] [place] [address] Jul, [facility] [address] [id number] [place] [address] June, [facility] [address] [id number] [place] [address] Apr, [facility] [address] [id number] [place] [address] Apr, [facility] [address] [id number] [place] [address] Apr, [facility] [address] [id number] [place] [address] Apr, [facility] [address] [id number] [place] [address] Mar, [facility] [address] [id number] [place] [address] Jan, [facility] [address] [id number] [place] [address] Jan, [facility] [address] [id number] [place] [address] Jan, [facility] [address] [id number] [place] [address] Jan, [facility] [address] [id number] [place] [address] Jan, [facility] [address] [id number] [place] [address] Jan, [facility] [address] [id number] [place] [address] Jan, [facility] [address] [id number] [place] [address] Jan, [facility] [address] [facility] [id number] [place] [address] 16 Dec, 2011 [facility] [address] [facility] [id number] [place] [address] 16 Dec, 2011 [facility] [address] [id number] [place] [address] 16 Dec, 2011 [facility] [address] [id number] [place] [address] 16 Dec, 2011 [facility] [address] [facility] [id number] [place] [address] 17 Nov, 2011 [facility] [address] [id number] [place] [address] 24 Oct, 2011 [facility] [address] [id number] [place] [address] 14 Aug, 2011 [facility] [address] [id number] [place] [address] 14 Aug, 2011 [facility] [address] [id number] [place] [address] 14 Aug, 2011 [facility] [address] [id number] [place] [address] 13 Aug, 2011 [facility] [address] [id number] [place] [address] 13 Aug, 2011 [facility] [address] [id number] [place] [address] Apr, [facility] [address] [id number] [place] [address] 16 Apr, 2011 [facility] [address] [id number] [place] [address] Apr, [facility] [address] [id number] [place] [address] Mar, [facility] [address] [id number] [place] [address] Mar, [facility] [address] [id number] [place] [address] Dec, [facility] [address] [facility] [id number] [place] [address] Dec, [facility] [address] [facility] [id number] [place] [address] Dec, IMMUNIZATIONS No Known Immunizations SOCIAL HISTORY Never Assessed REASON FOR VISIT PLAN OF CARE VITAL SIGNS Blood pressure systolic 122 mmHg 2013-05-27 Blood pressure diastolic 80 mmHg 2013-05-27 MEDICATIONS Unknown Medications RESULTS No Results PROCEDURES Procedure Date Ordered Result Body Site DEBRIDE NAIL, 6 OR MORE May 27, 2013 INSTRUCTIONS MEDICATIONS ADMINISTERED No Known Medications [...]
--- OUTSIDE RECORDS SUMMARY | 2019-06-21 16:27 | XMS REPORT ---
Author Author Nick ABDI Organization [facility] Address [address] [place] [address] Care Team Providers Care Model Photographers' Name Role Phone ELVIN ABDI Unavailable PROBLEMS Type Condition ICD9-CM Code UGN48-FF Code Onset Dates Condition S tatus SNOMED Code Problem Impaired circulation I99.9 Active 28611097 Problem Hyperlipidemia E78.5 Active 55913 004 Problem Cigarette nicotine dependence with nicotine-induced di sorder F17.219 Active 52469062 Problem DM neuro manif type II E11.49 Active 21550429 Problem Hammertoe M20.40 Active 613549989 Problem Reactive depression F32.9 Active 38528202 Problem Type 2 diabetes mellitus E11.9 Activ e 27822086 Problem Arthritis M19.90 Active 2900244 Problem Carotid artery disease I77.9 Active 949602614 Problem Hypercholesteremia E78.00 Active 2 99179583 Problem Tobacco abuse Z72.0 Active 069060 05 Problem Restless leg syndrome G25.81 Active 01978935 Problem 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 Active 12269 005 Problem Mild depression F32.0 Active 3104 16224 Problem Essential (primary) hypertension I10 Active 44050133 Problem Left leg claudication I73.9 Active 442969177 Problem PAD (peripheral artery disease) I73.9 Active 054255791 Problem Onychomycosis B35.1 Active 974117 008 Problem Panlobular emphysema J43.1 Active 4606774 Problem Vitamin D deficiency E55.9 Active 26505304 ALLERGIES No Information ENCOUNTERS Encounter Location Date Diagnosis [address] [place] [address] Jul, [facility] [address] [id number] [place] [address] May, [address] [place] [address] 09 Jun, [address] [place] [address] Apr, Type 2 diabetes mellitus E11 .9 ; Essential (primary) hypertension I10 ; Vitamin D deficiency E55.9 and Mild depression F32.0 [facility] [address] [place] [address] Apr, Type 2 diabetes mellitus E11 .9 [address] [place] [address] Apr, [address] [place] [address] Apr, Flu-like symptoms R68.89 [address] [place] [address] 14 Apr, 2019 Flu-like symptoms R68.89 [address] [place] [address] Jan, Diarrhea, unspecified type R 19.7 [address] [place] [address] Jan, Type 2 diabetes mellitus E11 .9 ; Essential (primary) hypertension I10 ; Restless leg syndrome G25.81 ; Vitamin D deficiency E55.9 ; Diarrhea, unspecified type R19.7 and Encounter for immunization Z23 [address] [place] [address] Jan, Type 2 diabetes mellitus E11 .9 [address] [place] [address] Oct, Type 2 diabetes mellitus E11 .9 and Essential (primary) hypertension I10 [facility] [address] [id number] [place] [address] Oct, Onychomycosis B35.1 ; Diabetes mellitus E11.9 and Impaired circulation I99.9 [address] [place] [address] Oct, Diabetes mellitus E11.9 and Hypertension I10 [facility] [place] [address] [place] [address] Oct, Hypertension I10 [facility] [address] [place] [address] Sep, [facility] [address] [id number] [place] [address] Sep, [facility] [address] [place] [address] Aug, [facility] [address] [id number] [place] [address] Aug, Panlobular emphysema J43.1 [facility] [place] [address] [place] [address] Aug, Panlobular emphysema J43.1 [facility] [place] [address] [place] [address] Aug, Panlobular emphysema J43.1 [facility] [address] [place] [address] Jul, Encounter for screening for malignant neoplasm of colon Z12.11 ; CAD (coronary artery disease) I25.10 ; Cigarette nicotine dependence with nicotine-induced disorder F17.219 ; Essential (primary) hypertension I10 ; Panlobular emphysema J43.1 and DM neuro manif type II E11.49 [facility] [address] [place] [address] Jul, Type 2 diabetes mellitus E11 .9 [facility] [address] [place] [address] Jul, [facility] [address] [id number] [place] [address] Jul, Onychomycosis B35.1 and DM neuro manif t ype II E11.49 [facility] [address] [id number] [place] [address] June, Diabetes mellitus E11.9 [facility] [place] [address] [place] [address] May, [facility] [address] [email or web address] [place] [address] Apr, Type 2 diabetes mellitus E11 .9 [...] M20.40 ; Arthritis M19.90 and Hypoglycemia E16.[address] [address] Apr, Diabetes mellitus E11.[address] [address] Apr, Onychomycosis B35.1 ; Impaired circulati on I99.9 and DM neuro manif type II E11.[address] [address] Jan, Diabetes mellitus E11.9 ; Hypertension I 10 and Encounter for immunization Z23 [address] [address] Jan, Diabetes mellitus E11.9 [address] [address] Jan, [address] [address] Jan, [address] [address] Oct, Onychomycosis B35.1 ; DM neuro manif typ e II E11.49 and Impaired circulation I99.9 [facility] [address] [address] Sep, [facility] [address] [address] Aug, Hypoglycemia E16.2 [facility] [address] [address] Aug, [facility] [address] [address] Jul, [facility] [address] [address] Jul, Elevated blood sugar R73.9 and Neck pain M54.2 [facility] [address] [address] Jul, [facility] [address] [address] Jul, Onychomycosis B35.1 and DM neuro manif t ype II E11.49 [facility] [address] [address] Jul, [address] [address] June, Hyperlipidemia E78.5 [address] [address] June, Diabetes mellitus E11.9 ; CAD (coronary artery disease) I25.10 ; Arthritis M19.90 and Hyperlipidemia E78.5 [facility] [address] [address] June, [facility] [address] [address] Apr, Onychomycosis B35.1 ; DM neuro manif typ e II E11.49 and Hammertoe M20.40 [facility] [address] [address] 12 Feb, 2018 Diabetes mellitus E11.9 and Hypertension I10 [address] [address] Mar, Hypertension I10 and Diabetes mellitus E 11.9 [address] [address] Mar, Hypertension I10 and Diabetes mellitus E 11.9 [address] [address] Jan, Onychomycosis B35.1 and DM neuro manif t ype II E11.49 [address] [address] Dec, [address] [address] Dec, [address] [address] Dec, Hypertension I10 and Diabetes mellitus E 11.9 [address] [address] Oct, Encounter for immunization Z23 ; Diabete s mellitus E11.9 ; Hypertension I10 and Cigarette nicotine dependence with nicotine-induced disorder F17.219 [address] [address] Oct, Diabetes mellitus E11.9 [address] [address] Oct, Onychomycosis B35.1 ; DM neuro manif typ e II E11.49 and Hammertoe M20.40 [address] [address] Jul, Diabetes mellitus E11.9 [address] [address] Jul, Onychomycosis B35.1 ; Hammertoe M20.40 a nd DM neuro manif type II E11.49 [address] [address] May, Diabetes mellitus E11.9 [address] [address] May, Diabetes mellitus E11.9 [address] [address] Nov, Diabetes mellitus E11.9 ; Hypertension I 10 ; Reactive depression F32.9 and Encounter for immunization Z23 [address] [address] Oct, Ulcer of other part of foot L97.[address] [address] Sep, Onychomycosis B35.1 ; Ulcer of heel, lef t, with unspecified severity L97.429 and DM neuro manif type II E11.[address] [address] Sep, [address] [address] Sep, Ulcer of heel, left, with unspecified se verity L97.[address] [address] Aug, Onychomycosis B35.1 ; Ulcer of heel, lef t, with unspecified severity L97.429 and DM neuro manif type II E11.[address] [address] Jul, Diabetes mellitus E11.9 ; Hypertension I 10 ; Cigarette nicotine dependence with nicotine-induced disorder F17.219 and CAD (coronary artery disease) I25.[address] [address] Jul, Left leg claudication I73.9 ; Right leg claudication I73.9 ; CAD (coronary artery disease) I25.10 ; Hypertension I10 and Hyperlipidemia E78.[address] [address] Jul, Ulcer of heel, left, with unspecified se verity L97.429 and DM neuro manif type II E11.49 [address] [address] June, Ulcer of heel, left, with unspecified se verity L97.429 and Ulcer of other part of foot L97.509 [address] [address] June, Ulcer of heel, left, with unspecified se verity L97.429 and Ulcer of foot, left, with unspecified severity L97.529 [address] [address] May, [address] [address] May, [address] [address] Apr, DM neuro manif type II E11.49 ; Hyperten yue I10 and Sleep apnea in adult G47.33 [address] [address] Apr, [address] [address] Apr, Ulcer of foot L97.509 and DM neuro manif type II E11.49 [address] [address] Apr, Ulcer of other part of foot L97.509 and DM neuro manif type II E11.49 [address] [address] Apr, Onychomycosis B35.1 ; Ingrown toenail L6 0.0 ; Impaired circulation I99.9 and DM neuro manif type II E11.49 [address] [address] Mar, Ulcer of other part of foot L97.509 ; On ychomycosis B35.1 and Diabetes mellitus E11.9 [address] [address] Dec, Encounter for immunization Z23 ; Hyperte nsion I10 and Diabetes mellitus E11.9 [address] [address] Dec, [address] [address] Dec, CAD (coronary artery disease) I25.10 ; H ypertension I10 ; Left leg claudication I73.9 and Hyperlipidemia E78.5 [address] [address] Nov, Onychomycosis B35.1 and Hammertoe M20.40 [address] [address] Sep, Coronary atherosclerosis of unspecified type of vessel, hoh or graft 414.00 [address] [address] Sep, Coronary atherosclerosis of unspecified type of vessel, hoh or graft 414.00 and Diabetes 250.00 [address] [address] May, [address] [address] May, [address] [address] Apr, [address] [address] Apr, [address] [address] Apr, [facility] [address] [address] Apr, [address] [address] Mar, [facility] [place] [facility] [address] [id number] [place] [address] Mar, [facility] [place] [facility] [address] [id number] [place] [address] Jan, [facility] [place] [facility] [address] [id number] [place] [address] Jan, [facility] [place] [facility] [address] [id number] [place] [address] Jan, [facility] [place] [facility] [address] [id number] [place] [address] Jan, [facility] [place] [facility] [address] [id number] [place] [address] Jan, [facility] [place] [facility] [address] [id number] [place] [address] Jan, [facility] [place] [facility] [address] [id number] [place] [address] Jan, [facility] [place] [facility] [address] [id number] [place] [address] Jan, [facility] [place] [facility] [address] [id number] [place] [address] Jan, [facility] [place] [facility] [address] [id number] [place] [address] Jan, [facility] [place] [facility] [address] [id number] [place] [address] Jan, [facility] [place] [facility] [address] [id number] [place] [address] Nov, [facility] [place] [facility] [address] [id number] [place] [address] Nov, [facility] [place] [facility] [id number] [place] [address] Nov, [facility] [place] [facility] [address] [id number] [place] [address] Nov, [facility] [place] [facility] [address] [id number] [place] [address] 15 Nov, 2013 [facility] [place] [facility] [address] [facility] [id number] [place] [address] 15 Nov, 2013 [facility] [place] [facility] [address] [facility] [id number] [facility] [place] [address] Oct, [facility] [place] [facility] [address] [facility] [id number] [place] [address] Oct, 2013 [facility] [place] [facility] [address] [facility] [id number] [facility] [place] [address] Oct, [facility] [place] [facility] [address] [facility] [id number] [facility] [place] [address] Oct, [facility] [place] [facility] [address] [facility] [id number] [place] [address] Oct, [facility] [place] [facility] [address] [id number] [place] [address] Oct, [facility] [place] [facility] [address] [id number] [place] [address] Sep, [facility] [place] [facility] [address] [facility] [id number] [place] [address] Sep, [facility] [place] [facility] [address] [id number] [place] [address] Sep, [facility] [place] [facility] [address] [facility] [id number] [place] [address] Sep, [facility] [place] [facility] [address] [id number] [place] [address] Sep, [facility] [place] [facility] [address] [facility] [id number] [place] [address] Sep, [facility] [place] [facility] [address] [facility] [id number] [place] [address] Aug, [facility] [place] [facility] [address] [facility] [id number] [place] [address] Aug, [facility] [place] [facility] [address] [id number] [place] [address] Aug, [facility] [place] [facility] [address] [facility] [id number] [place] [address] Aug, [facility] [place] [facility] [address] [id number] [place] [address] Aug, [facility] [place] [facility] [address] [id number] [place] [address] Aug, [facility] [place] [facility] [address] [id number] [place] [address] Jul, [facility] [place] [facility] [address] [id number] [place] [address] Jul, [facility] [place] [facility] [address] [id number] [place] [address] Jul, [facility] [place] [facility] [address] [id number] [place] [address] Jul, [facility] [place] [facility] [address] [id number] [place] [address] June, [facility] [place] [facility] [address] [id number] [place] [address] June, [facility] [place] [facility] [address] [id number] [place] [address] June, [facility] [place] [facility] [address] [id number] [place] [address] June, [facility] [place] [facility] [address] [id number] [place] [address] May, [facility] [place] [facility] [address] [id number] [place] [address] May, [facility] [place] [facility] [address] [id number] [place] [address] May, [facility] [place] [facility] [address] [id number] [place] [address] May, [facility] [place] [facility] [address] [id number] [place] [address] May, [facility] [place] [facility] [address] [id number] [place] [address] May, [facility] [place] [address] [id number] [place] [address] Apr, [facility] [place] [facility] [address] [id number] [place] [address] Apr, [facility] [place] [facility] [address] [id number] [place] [address] Apr, [facility] [place] [facility] [address] [id number] [place] [address] Apr, [facility] [place] [facility] [address] [id number] [place] [address] Apr, [facility] [place] [facility] [address] [id number] [place] [address] Apr, [facility] [place] [facility] [address] [id number] [place] [address] Apr, [facility] [place] [facility] [id number] [place] [address] Jan, [facility] [place] [facility] [address] [id number] [place] [address] Jan, [facility] [place] [facility] [id number] [place] [address] Jan, [facility] [place] [facility] [address] [id number] [place] [address] Jan, [facility] [place] [facility] [address] [id number] [place] [address] Jan, [facility] [place] [facility] [address] [id number] [place] [address] Jan, [facility] [place] [facility] [address] [id number] [place] [address] Dec, [facility] [place] [facility] [address] [id number] [place] [address] Dec, [facility] [place] [facility] [address] [id number] [place] [address] Dec, [facility] [place] [facility] [address] [id number] [place] [address] Dec, [facility] [place] [facility] [address] [id number] [place] [address] Dec, [facility] [address] [id number] [place] [address] Dec, [facility] [place] [address] [id number] [place] [address] Nov, [facility] [address] [id number] [place] [address] Oct, [facility] [place] [facility] [address] [id number] [place] [address] Oct, [facility] [place] [facility] [address] [id number] [place] [address] Aug, [facility] [place] [facility] [address] [id number] [place] [address] Aug, [facility] [place] [facility] [id number] [place] [address] Jul, [facility] [place] [facility] [address] [id number] [place] [address] June, [facility] [place] [facility] [id number] [place] [address] Apr, [facility] [place] [facility] [address] [id number] [place] [address] Apr, [facility] [place] [facility] [id number] [place] [address] Apr, [facility] [place] [facility] [address] [id number] [place] [address] Apr, [facility] [place] [facility] [id number] [place] [address] Mar, [facility] [place] [facility] [address] [id number] [place] [address] Jan, [facility] [place] [facility] [address] [id number] [place] [address] Jan, [facility] [place] [facility] [address] [id number] [place] [address] 13 Jan, 2012 [facility] [place] [facility] [address] [id number] [place] [address] Jan, [facility] [place] [facility] [address] [id number] [place] [address] 12 Jan, 2012 [facility] [place] [facility] [address] [id number] [place] [address] Jan, [facility] [place] [facility] [address] [id number] [place] [address] Jan, [facility] [place] [facility] [address] [id number] [place] [address] Jan, [facility] [place] [facility] [address] [id number] [place] [address] 16 Dec, 2011 [facility] [place] [facility] [address] [id number] [place] [address] 16 Dec, 2011 [facility] [place] [facility] [address] [id number] [place] [address] 16 Dec, 2011 [facility] [place] [facility] [address] [id number] [place] [address] 16 Dec, 2011 [facility] [place] [facility] [address] [id number] [place] [address] 17 Nov, 2011 [facility] [place] [facility] [address] [id number] [place] [address] 24 Oct, 2011 [facility] [place] [facility] [address] [id number] [place] [address] 14 Aug, 2011 [facility] [place] [facility] [address] [id number] [place] [address] 14 Aug, 2011 [facility] [place] [facility] [address] [id number] [place] [address] 14 Aug, 2011 [facility] [place] [facility] [address] [id number] [place] [address] 13 Aug, 2011 [facility] [place] [facility] [address] [id number] [place] [address] Jul, [facility] [address] [id number] [place] [address] Apr, [facility] [address] [id number] [place] [address] Apr, [facility] [address] [id number] [place] [address] Apr, [facility] [id number] [place] [address] Mar, [facility] [id number] [place] [address] Mar, [facility] [id number] [place] [address] Dec, [facility] [id number] [place] [address] Dec, [facility] [id number] [place] [address] Dec, IMMUNIZATIONS No Known Immunizations SOCIAL HISTORY [...]
--- OUTSIDE RECORDS SUMMARY | 2019-06-21 16:27 | XMS REPORT ---
Author Author Nick ABDI Organization [facility] Address [address] [place] [address] Care Team Providers Care Information Security Manager Name Role Phone ELVIN ABDI Unavailable PROBLEMS Type Condition ICD9-CM Code OGO51-OE Code Onset Dates Condition S tatus SNOMED Code Problem Hyperlipidemia E78.5 Active 90687 004 Problem Left leg claudication I73.9 Active 249531202 Problem DM neuro manif type II E11.49 Active 90312529 Problem Impaired circulation I99.9 Active 44901221 Problem Reactive depression F32.9 Active 83281171 Problem Cigarette nicotine dependence with nicotine-induced di sorder F17.219 Active 62008581 Problem Arthritis M19.90 Active 7375989 Problem Hammertoe M20.40 Active 568258853 Problem Hypercholesteremia E78.00 Active 2 46884682 Problem Type 2 diabetes mellitus E11.9 Activ e 50952722 Problem Essential (primary) hypertension I10 Active 36457570 Problem Vitamin D deficiency E55.9 Active 15697148 Problem Carotid artery disease I77.9 Active 509882491 Problem Restless leg syndrome G25.81 Active 68408417 Problem 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 Active 71721 005 Problem Tobacco abuse Z72.0 Active 271882 05 Problem PAD (peripheral artery disease) I73.9 Active 575471465 Problem Onychomycosis B35.1 Active 925153 008 Problem Panlobular emphysema J43.1 Active 3591430 ALLERGIES No Information ENCOUNTERS Encounter Location Date Diagnosis [facility] [address] [id number] [place] [address] 10 Jun, [address] [place] [address] Apr, [address] [place] [address] 14 Apr, 2019 [facility] [address] [place] [address] Apr, Flu-like symptoms R68.89 [address] [place] [address] Apr, Flu-like symptoms R68.89 [address] [place] [address] Jan, Diarrhea, unspecified type R 19.7 [address] [place] [address] Jan, Type 2 diabetes mellitus E11 .9 ; Essential (primary) hypertension I10 ; Restless leg syndrome G25.81 ; Vitamin D deficiency E55.9 ; Diarrhea, unspecified type R19.7 and Encounter for immunization Z23 [address] [place] [address] Jan, Type 2 diabetes mellitus E11 .9 [address] [place] [address] Oct, Type 2 diabetes mellitus E11 .9 and Essential (primary) hypertension I10 [facility] [address] [id number] [place] [address] Oct, Onychomycosis B35.1 ; Diabetes mellitus E11.9 and Impaired circulation I99.9 [facility] [address] [place] [address] Oct, Diabetes mellitus E11.9 and Hypertension I10 [address] [place] [address] Oct, Hypertension I10 [address] [place] [address] Sep, [facility] [address] [id number] [place] [address] Sep, [address] [place] [address] Aug, [facility] [address] [id number] [place] [address] Aug, Panlobular emphysema J43.[address] [place] [address] Aug, Panlobular emphysema J43.[address] [place] [address] Aug, Panlobular emphysema J43.[address] [place] [address] Jul, Encounter for screening for malignant neoplasm of colon Z12.11 ; CAD (coronary artery disease) I25.10 ; Cigarette nicotine dependence with nicotine-induced disorder F17.219 ; Essential (primary) hypertension I10 ; Panlobular emphysema J43.1 and DM neuro manif type II E11.[address] [place] [address] Jul, Type 2 diabetes mellitus E11 .9 [address] [place] [address] Jul, [facility] [address] [id number] [place] [address] Jul, Onychomycosis B35.1 and DM neuro manif t ype II E11.49 [facility] [address] [id number] [place] [address] June, Diabetes mellitus E11.9 [address] [place] [address] May, [address] [place] [address] Apr, Type 2 diabetes mellitus E11 .9 [...] M20.40 ; Arthritis M19.90 and Hypoglycemia E16.2 [place] [address] [address] Apr, Diabetes mellitus E11.9 [place] [address] [address] Apr, Onychomycosis B35.1 ; Impaired circulati on I99.9 and DM neuro manif type II E11.49 [place] [address] [address] Jan, Diabetes mellitus E11.9 ; Hypertension I 10 and Encounter for immunization Z23 [address] [address] Jan, Diabetes mellitus E11.9 [place] [address] [address] Jan, [place] [address] [address] Jan, [place] [address] [address] Oct, Onychomycosis B35.1 ; DM neuro manif typ e II E11.49 and Impaired circulation I99.9 [place] [address] [address] Sep, [place] [address] [address] Aug, Hypoglycemia E16.2 [place] [address] [address] Aug, [place] [address] [address] Jul, [place] [address] [address] Jul, Elevated blood sugar R73.9 and Neck pain M54.2 [place] [address] [address] Jul, [place] [address] [address] Jul, Onychomycosis B35.1 and DM neuro manif t ype II E11.49 [place] [address] [address] Jul, [address] [address] June, Hyperlipidemia E78.[address] [address] June, Diabetes mellitus E11.9 ; CAD (coronary artery disease) I25.10 ; Arthritis M19.90 and Hyperlipidemia E78.5 [place] [address] [address] June, [address] [address] Apr, Onychomycosis B35.1 ; DM neuro manif typ e II E11.49 and Hammertoe M20.[address] [address] Apr, Diabetes mellitus E11.9 and Hypertension I10 [place] [address] [address] Mar, Hypertension I10 and Diabetes mellitus E 11.[address] [address] Mar, Hypertension I10 and Diabetes mellitus E 11.[address] [address] Jan, Onychomycosis B35.1 and DM neuro manif t ype II E11.49 [place] [address] [address] Dec, [place] [address] [address] Dec, [place] [address] [address] Dec, Hypertension I10 and Diabetes mellitus E 11.9 [place] [address] [address] Oct, Encounter for immunization Z23 ; Diabete s mellitus E11.9 ; Hypertension I10 and Cigarette nicotine dependence with nicotine-induced disorder F17.219 [place] [address] [address] Oct, Diabetes mellitus E11.9 [place] [address] [address] Oct, Onychomycosis B35.1 ; DM neuro manif typ e II E11.49 and Hammertoe M20.40 [place] [address] [address] Jul, Diabetes mellitus E11.9 [place] [address] [address] Jul, Onychomycosis B35.1 ; Hammertoe M20.40 a nd DM neuro manif type II E11.49 [place] [address] [address] May, Diabetes mellitus E11.9 [place] [address] [address] May, Diabetes mellitus E11.9 [place] [address] [address] Nov, Diabetes mellitus E11.9 ; Hypertension I 10 ; Reactive depression F32.9 and Encounter for immunization Z23 [place] [address] [address] Oct, Ulcer of other part of foot L97.509 [place] [address] [address] Sep, Onychomycosis B35.1 ; Ulcer of heel, lef t, with unspecified severity L97.429 and DM neuro manif type II E11.[address] [address] Sep, [address] [address] Sep, Ulcer of heel, left, with unspecified se verity L97.[address] [address] Aug, Onychomycosis B35.1 ; Ulcer of heel, lef t, with unspecified severity L97.429 and DM neuro manif type II E11.[address] [address] Jul, Diabetes mellitus E11.9 ; Hypertension I 10 ; Cigarette nicotine dependence with nicotine-induced disorder F17.219 and CAD (coronary artery disease) I25.[address] [address] Jul, Left leg claudication I73.9 ; Right leg claudication I73.9 ; CAD (coronary artery disease) I25.10 ; Hypertension I10 and Hyperlipidemia E78.[address] [address] Jul, Ulcer of heel, left, with unspecified se verity L97.429 and DM neuro manif type II E11.[address] [address] June, Ulcer of heel, left, with unspecified se verity L97.429 and Ulcer of other part of foot L97.[address] [address] June, Ulcer of heel, left, with unspecified se verity L97.429 and Ulcer of foot, left, with unspecified severity L97.529 [place] [address] [address] May, [place] [address] [address] May, [place] [address] [address] Apr, DM neuro manif type II E11.49 ; Hyperten yue I10 and Sleep apnea in adult G47.33 [place] [address] [address] Apr, [address] [address] Apr, Ulcer of foot L97.509 and DM neuro manif type II E11.[address] [address] Apr, Ulcer of other part of foot L97.509 and DM neuro manif type II E11.49 [place] [address] [address] Apr, Onychomycosis B35.1 ; Ingrown toenail L6 0.0 ; Impaired circulation I99.9 and DM neuro manif type II E11.[address] [address] Mar, Ulcer of other part of foot L97.509 ; On ychomycosis B35.1 and Diabetes mellitus E11.[address] [address] Dec, Encounter for immunization Z23 ; Hyperte nsion I10 and Diabetes mellitus E11.[address] [address] Dec, [address] [address] Dec, CAD (coronary artery disease) I25.10 ; H ypertension I10 ; Left leg claudication I73.9 and Hyperlipidemia E78.5 [facility] [address] [address] Nov, Onychomycosis B35.1 and Hammertoe M20.40 [facility] [address] [address] Sep, Coronary atherosclerosis of unspecified type of vessel, [place] or graft 414.00 [facility] [address] [address] Sep, Coronary atherosclerosis of unspecified type of vessel, [place] or graft 414.00 and Diabetes 250.00 [facility] [address] [address] May, [facility] [address] [address] May, [facility] [address] [address] Apr, [facility] [address] [address] Apr, [facility] [address] [address] Apr, [facility] [address] [address] Apr, [facility] [address] [address] Mar, [facility] [address] [address] Mar, [facility] [address] [address] Jan, [facility] [address] [address] Jan, [facility] [address] [address] Jan, [facility] [address] [address] Jan, [facility] [address] [id number] [place] [address] Jan, [facility] [address] [id number] [place] [address] Jan, [facility] [address] [id number] [place] [address] Jan, [facility] [address] [id number] [place] [address] Jan, [facility] [address] [address] [id number] [place] [address] Jan, [facility] [address] [id number] [place] [address] Jan, [facility] [address] [id number] [place] [address] Jan, [facility] [address] [id number] [place] [address] Nov, [facility] [address] [id number] [place] [address] Nov, [facility] [address] [id number] [place] [address] Nov, [facility] [address] [id number] [place] [address] Nov, [facility] [address] [id number] [place] [address] Nov, [facility] [address] [id number] [place] [address] Nov, [facility] [address] [id number] [place] [address] Oct, [facility] [address] [id number] [place] [address] Oct, [facility] [address] [id number] [place] [address] Oct, [facility] [address] [id number] [facility] [place] [address] Oct, [facility] [address] [id number] [facility] [place] [address] Oct, [facility] [address] [id number] [facility] [place] [address] Oct, [facility] [address] [id number] [place] [address] Sep, [facility] [address] [id number] [place] [address] Sep, [facility] [address] [id number] [place] [address] Sep, [facility] [address] [id number] [place] [address] Sep, [facility] [address] [id number] [place] [address] Sep, [facility] [address] [id number] [place] [address] Sep, [facility] [address] [id number] [place] [address] Aug, [facility] [address] [id number] [place] [address] Aug, [facility] [address] [id number] [place] [address] Aug, [facility] [address] [id number] [place] [address] Aug, [facility] [address] [id number] [place] [address] Aug, [facility] [address] [id number] [place] [address] Aug, [facility] [address] [id number] [place] [address] Jul, [facility] [address] [id number] [place] [address] Jul, [facility] [address] [id number] [place] [address] Jul, [facility] [address] [id number] [place] [address] Jul, [facility] [address] [id number] [place] [address] June, [facility] [address] [id number] [place] [address] June, [facility] [address] [id number] [place] [address] June, [facility] [address] [id number] [place] [address] June, [facility] [address] [id number] [place] [address] May, [facility] [address] [id number] [place] [address] May, [facility] [address] [id number] [place] [address] May, [facility] [address] [id number] [place] [address] May, [facility] [address] [id number] [place] [address] May, [facility] [address] [id number] [place] [address] May, [facility] [address] [id number] [place] [address] Apr, [facility] [address] [id number] [place] [address] Apr, [facility] [address] [id number] [place] [address] Apr, [facility] [address] [id number] [place] [address] Apr, [facility] [address] [id number] [place] [address] Apr, 2013 [facility] [address] [id number] [place] [address] Apr, [facility] [address] [id number] [place] [address] Apr, [facility] [address] [id number] [place] [address] Jan, [facility] [address] [id number] [place] [address] Jan, [facility] [address] [id number] [place] [address] Jan, [facility] [address] [id number] [place] [address] Jan, [facility] [address] [id number] [place] [address] Jan, [facility] [address] [id number] [place] [address] Jan, [facility] [address] [id number] [place] [address] Dec, [facility] [address] [id number] [place] [address] Dec, [facility] [address] [id number] [place] [address] Dec, [facility] [address] [id number] [place] [address] Dec, [facility] [address] [id number] [place] [address] Dec, [facility] [address] [id number] [place] [address] Dec, [facility] [address] [id number] [place] [address] Nov, [facility] [address] [id number] [place] [address] Oct, [facility] [address] [id number] [place] [address] Oct, [facility] [address] [id number] [place] [address] Aug, [facility] [address] [id number] [place] [address] Aug, [facility] [address] [id number] [place] [address] Jul, [facility] [address] [id number] [place] [address] June, [facility] [address] [id number] [place] [address] Apr, [facility] [address] [id number] [place] [address] Apr, [facility] [address] [id number] [place] [address] Apr, [facility] [address] [id number] [place] [address] Apr, [facility] [address] [id number] [place] [address] Mar, [facility] [address] [id number] [place] [address] Jan, [facility] [address] [id number] [place] [address] Jan, [facility] [address] [id number] [place] [address] Jan, [facility] [address] [id number] [place] [address] Jan, [facility] [address] [id number] [place] [address] Jan, [facility] [address] [id number] [place] [address] Jan, [facility] [address] [id number] [place] [address] Jan, [facility] [address] [id number] [place] [address] 12 Jan, 2012 [facility] [address] [id number] [place] [address] 16 Dec, 2011 [facility] [address] [id number] [place] [address] 16 Dec, 2011 [facility] [address] [id number] [place] [address] 16 Dec, 2011 [facility] [address] [id number] [place] [address] 16 Dec, 2011 [facility] [address] [id number] [place] [address] 17 Nov, 2011 [facility] [address] [id number] [place] [address] 24 Oct, 2011 [facility] [address] [id number] [place] [address] 14 Aug, 2011 [facility] [address] [id number] [place] [address] 14 Aug, 2011 [facility] [address] [id number] [place] [address] 14 Aug, 2011 [facility] [address] [id number] [place] [address] 13 Aug, 2011 [facility] [address] [id number] [place] [address] 13 Aug, 2011 [facility] [address] [id number] [place] [address] Apr, [facility] [address] [id number] [place] [address] 16 Apr, 2011 [facility] [address] [id number] [place] [address] 16 Apr, 2011 [facility] [address] [id number] [place] [address] Mar, [facility] [address] [id number] [place] [address] Mar, [facility] [address] [id number] [place] [address] Dec, [facility] [address] [id number] [place] [address] Dec, [facility] [address] [id number] [place] [address] Dec, IMMUNIZATIONS No Known Immunizations SOCIAL HISTORY Never Assessed REASON FOR VISIT PLAN OF CARE VITAL SIGNS Height 75 in 2013-06-02 Weight 234 lbs 2013-06-02 Temperature 96.3 degrees Fahrenheit 2013-06-02 Heart Rate 72 bpm 2013-06-02 Respiratory Rate 20 2013-06-02 Blood pressure systolic 128 mmHg 2013-06-02 Blood pressure diastolic 78 mmHg 2013-06-02 MEDICATIONS Unknown Medications RESULTS No Results PROCEDURES Procedure Date Ordered Result Body Site GLYCATED HEMOGLOBIN TEST June 02, 2013 INSTRUCTIONS MEDICATIONS ADMINISTERED No Known Medications [...]
--- OUTSIDE RECORDS SUMMARY | 2019-06-21 16:27 | XMS REPORT ---
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 Name Role Phone LUZMAEDD LambertIN Unavailable PROBLEMS Type Condition ICD9-CM Code VLQ21-AL Code Onset Dates Condition S tatus SNOMED Code Problem Hyperlipidemia E78.5 Active 09441 004 Problem Left leg claudication I73.9 Active 923177017 Problem DM neuro manif type II E11.49 Active 73219037 Problem Impaired circulation I99.9 Active 84109617 Problem Reactive depression F32.9 Active 58192363 Problem Cigarette nicotine dependence with nicotine-induced di sorder F17.219 Active 39199363 Problem Arthritis M19.90 Active 3943699 Problem Hammertoe M20.40 Active 121037227 Problem Hypercholesteremia E78.00 Active 2 57642860 Problem Type 2 diabetes mellitus E11.9 Activ e 67284373 Problem Essential (primary) hypertension I10 Active 46997298 Problem Vitamin D deficiency E55.9 Active 99473933 Problem Carotid artery disease I77.9 Active 480832987 Problem Restless leg syndrome G25.81 Active 73835264 Problem 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 Active 57195 005 Problem Tobacco abuse Z72.0 Active 682466 05 Problem PAD (peripheral artery disease) I73.9 Active 078793351 Problem Onychomycosis B35.1 Active 678450 008 Problem Panlobular emphysema J43.1 Active 8368198 ALLERGIES No Information ENCOUNTERS Encounter Location Date Diagnosis [facility] [id number] [place] [address] 10 Jun, [address] [place] [address] Apr, [address] [place] [address] 05 May, 2019 Type 2 diabetes mellitus E11 .9 [facility] [address] [place] [address] Apr, [address] [place] [address] Apr, Flu-like symptoms R68.89 [address] [place] [address] Apr, Flu-like symptoms R68.89 [address] [place] [address] Jan, Diarrhea, unspecified type R 19.7 [address] [place] [address] Jan, Type 2 diabetes mellitus E11 .9 ; Essential (primary) hypertension I10 ; Restless leg syndrome G25.81 ; Vitamin D deficiency E55.9 ; Diarrhea, unspecified type R19.7 and Encounter for immunization Z23 [address] [place] [address] Jan, Type 2 diabetes mellitus E11 .9 [address] [place] [address] Oct, Type 2 diabetes mellitus E11 .9 and Essential (primary) hypertension I10 [place] [id number] [place] [address] Oct, Onychomycosis B35.1 ; Diabetes mellitus E11.9 and Impaired circulation I99.9 [address] [place] [address] Oct, Diabetes mellitus E11.9 and Hypertension I10 [address] [place] [address] Oct, Hypertension I10 [address] [place] [address] Sep, [facility] [id number] [place] [address] Sep, [address] [place] [address] Aug, [facility] [id number] [place] [address] Aug, Panlobular emphysema J43.[address] [place] [address] Aug, Panlobular emphysema J43.[address] [place] [address] Aug, Panlobular emphysema J43.[address] [place] [address] Jul, Encounter for screening for malignant neoplasm of colon Z12.11 ; CAD (coronary artery disease) I25.10 ; Cigarette nicotine dependence with nicotine-induced disorder F17.219 ; Essential (primary) hypertension I10 ; Panlobular emphysema J43.1 and DM neuro manif type II E11.[address] [place] [address] Jul, Type 2 diabetes mellitus E11 .[address] [place] [address] Jul, [place] [id number] [place] [address] Jul, Onychomycosis B35.1 and DM neuro manif t ype II E11.49 [facility] [id number] [place] [address] June, Diabetes mellitus E11.[address] [place] [address] May, [address] [place] [address] Apr, Type 2 diabetes mellitus E11 .9 [...] M20.40 ; Arthritis M19.90 and Hypoglycemia E16.2 [place] [address] [address] Apr, Diabetes mellitus E11.[address] [address] Apr, Onychomycosis B35.1 ; Impaired circulati on I99.9 and DM neuro manif type II E11.49 [place] [address] [address] Jan, Diabetes mellitus E11.9 ; Hypertension I 10 and Encounter for immunization Z23 [place] [address] [address] Jan, Diabetes mellitus E11.9 [place] [address] [address] Jan, [place] [address] [address] Jan, [place] [address] [address] Oct, Onychomycosis B35.1 ; DM neuro manif typ e II E11.49 and Impaired circulation I99.9 [place] [address] [address] Sep, [place] [address] [address] Aug, Hypoglycemia E16.2 [place] [address] [address] Aug, [place] [address] [address] Jul, [place] [address] [address] Jul, Elevated blood sugar R73.9 and Neck pain M54.2 [place] [address] [address] Jul, [place] [address] [address] Jul, Onychomycosis B35.1 and DM neuro manif t ype II E11.[address] [address] Jul, [place] [address] [address] June, Hyperlipidemia E78.[address] [address] June, Diabetes mellitus E11.9 ; CAD (coronary artery disease) I25.10 ; Arthritis M19.90 and Hyperlipidemia E78.[address] [address] June, [address] [address] Apr, Onychomycosis B35.1 ; DM neuro manif typ e II E11.49 and Hammertoe M20.40 [place] [address] [address] Apr, Diabetes mellitus E11.9 and Hypertension I10 [address] [address] Mar, Hypertension I10 and Diabetes mellitus E 11.9 [place] [address] [address] Mar, Hypertension I10 and Diabetes mellitus E 11.9 [place] [address] [address] Jan, Onychomycosis B35.1 and DM neuro manif t ype II E11.49 [place] [address] [address] Dec, [place] [address] [address] Dec, [place] [address] [address] Dec, Hypertension I10 and Diabetes mellitus E 11.9 [place] [address] [address] Oct, Encounter for immunization Z23 ; Diabete s mellitus E11.9 ; Hypertension I10 and Cigarette nicotine dependence with nicotine-induced disorder F17.219 [place] [address] [address] 08 Oct, 2016 Diabetes mellitus E11.9 [place] [address] [address] 08 Oct, 2016 Onychomycosis B35.1 ; DM neuro manif typ e II E11.49 and Hammertoe M20.40 [place] [address] [address] Jul, Diabetes mellitus E11.9 [place] [address] [address] Jul, Onychomycosis B35.1 ; Hammertoe M20.40 a nd DM neuro manif type II E11.49 [place] [address] [address] May, Diabetes mellitus E11.9 [place] [address] [address] May, Diabetes mellitus E11.9 [place] [address] [address] Nov, Diabetes mellitus E11.9 ; Hypertension I 10 ; Reactive depression F32.9 and Encounter for immunization Z23 [address] [address] Oct, Ulcer of other part of foot L97.[address] [address] Sep, Onychomycosis B35.1 ; Ulcer of heel, lef t, with unspecified severity L97.429 and DM neuro manif type II E11.[address] [address] Sep, [address] [address] Sep, Ulcer of heel, left, with unspecified se verity L97.[address] [address] Aug, Onychomycosis B35.1 ; Ulcer of heel, lef t, with unspecified severity L97.429 and DM neuro manif type II E11.[address] [address] Jul, Diabetes mellitus E11.9 ; Hypertension I 10 ; Cigarette nicotine dependence with nicotine-induced disorder F17.219 and CAD (coronary artery disease) I25.[address] [address] Jul, Left leg claudication I73.9 ; Right leg claudication I73.9 ; CAD (coronary artery disease) I25.10 ; Hypertension I10 and Hyperlipidemia E78.[address] [address] Jul, Ulcer of heel, left, with unspecified se verity L97.429 and DM neuro manif type II E11.[address] [address] June, Ulcer of heel, left, with unspecified se verity L97.429 and Ulcer of other part of foot L97.[address] [address] June, Ulcer of heel, left, with unspecified se verity L97.429 and Ulcer of foot, left, with unspecified severity L97.529 [place] [address] [address] May, [place] [address] [address] May, [place] [address] [address] Apr, DM neuro manif type II E11.49 ; Hyperten yue I10 and Sleep apnea in adult G47.[address] [address] Apr, [place] [address] [address] Apr, Ulcer of foot L97.509 and DM neuro manif type II E11.49 [place] [address] [address] Apr, Ulcer of other part of foot L97.509 and DM neuro manif type II E11.[address] [address] Apr, Onychomycosis B35.1 ; Ingrown toenail L6 0.0 ; Impaired circulation I99.9 and DM neuro manif type II E11.49 [place] [address] [address] Mar, Ulcer of other part of foot L97.509 ; On ychomycosis B35.1 and Diabetes mellitus E11.[address] [address] Dec, Encounter for immunization Z23 ; Hyperte nsion I10 and Diabetes mellitus E11.9 [place] [address] [address] Dec, [place] [address] [address] Dec, CAD (coronary artery disease) I25.10 ; H ypertension I10 ; Left leg claudication I73.9 and Hyperlipidemia E78.5 [place] [address] [address] Nov, Onychomycosis B35.1 and Hammertoe M20.40 [facility] [address] [address] Sep, Coronary atherosclerosis of unspecified type of vessel, [place] or graft 414.00 [place] [address] [address] Sep, Coronary atherosclerosis of unspecified type of vessel, [place] or graft 414.00 and Diabetes 250.00 [facility] [address] [address] May, [facility] [address] [address] May, [facility] [address] [address] Apr, [facility] [address] [address] Apr, [facility] [address] [address] Apr, [facility] [address] [address] Apr, [facility] [address] [address] Mar, [facility] [address] [address] Mar, [facility] [address] [address] Jan, [facility] [address] [address] Jan, [facility] [address] [address] Jan, [facility] [id number] [place] [address] Jan, [facility] [id number] [place] [address] Jan, [facility] [id number] [place] [address] Jan, [facility] [id number] [place] [address] Jan, [facility] [id number] [place] [address] Jan, [facility] [id number] [place] [address] Jan, [facility] [id number] [place] [address] Jan, [facility] [id number] [place] [address] Jan, [facility] [id number] [place] [address] Nov, [facility] [id number] [place] [address] Nov, [facility] [id number] [place] [address] Nov, [facility] [id number] [place] [address] Nov, [facility] [id number] [place] [address] Nov, [facility] [id number] [place] [address] Nov, [facility] [id number] [place] [address] Oct, [facility] [id number] [place] [address] Oct, [facility] [address] [id number] [facility] [place] [address] Oct, [facility] [address] [facility] [id number] [place] [address] Oct, [facility] [address] [facility] [id number] [place] [address] Oct, [facility] [id number] [place] [address] Oct, [facility] [address] [facility] [id number] [place] [address] Sep, [facility] [address] [facility] [id number] [place] [address] Sep, [facility] [id number] [place] [address] Sep, [facility] [id number] [place] [address] Sep, [facility] [id number] [place] [address] Sep, [facility] [address] [facility] [id number] [place] [address] Sep, [facility] [id number] [place] [address] Aug, [facility] [id number] [place] [address] Aug, [facility] [id number] [place] [address] Aug, [facility] [address] [facility] [id number] [place] [address] Aug, [facility] [id number] [place] [address] Aug, [facility] [address] [facility] [id number] [place] [address] Aug, [facility] [id number] [place] [address] Jul, [facility] [address] [facility] [id number] [place] [address] Jul, [facility] [address] [facility] [id number] [place] [address] Jul, [facility] [id number] [place] [address] Jul, [facility] [id number] [place] [address] June, [facility] [address] [facility] [id number] [place] [address] June, [facility] [id number] [place] [address] June, [facility] [id number] [place] [address] June, [facility] [id number] [place] [address] May, [facility] [id number] [place] [address] May, [facility] [id number] [place] [address] May, [facility] [id number] [place] [address] May, [facility] [id number] [place] [address] May, [facility] [id number] [place] [address] May, [facility] [id number] [place] [address] Apr, [facility] [id number] [place] [address] Apr, [facility] [id number] [place] [address] Apr, [facility] [id number] [place] [address] Apr, 2013 [facility] [id number] [place] [address] Apr, 2013 [facility] [id number] [place] [address] Apr, 2013 [facility] [id number] [place] [address] Apr, [facility] [id number] [place] [address] Jan, [facility] [id number] [place] [address] Jan, [facility] [id number] [place] [address] Jan, [facility] [id number] [place] [address] Jan, [facility] [id number] [place] [address] Jan, [facility] [id number] [place] [address] Jan, [facility] [id number] [place] [address] Dec, [facility] [id number] [place] [address] Dec, [facility] [id number] [place] [address] Dec, [facility] [id number] [place] [address] Dec, [facility] [id number] [place] [address] Dec, [facility] [id number] [place] [address] Dec, [facility] [id number] [place] [address] Nov, [facility] [id number] [place] [address] Oct, [facility] [id number] [place] [address] Oct, [facility] [id number] [place] [address] Aug, [facility] [id number] [place] [address] Aug, [facility] [id number] [place] [address] Jul, [facility] [id number] [place] [address] June, [facility] [id number] [place] [address] Apr, [facility] [id number] [place] [address] Apr, [facility] [id number] [place] [address] Apr, [facility] [id number] [place] [address] Apr, [facility] [id number] [place] [address] Mar, [facility] [id number] [place] [address] Jan, [facility] [id number] [place] [address] Jan, [facility] [id number] [place] [address] Jan, [facility] [id number] [place] [address] Jan, [facility] [id number] [place] [address] Jan, [facility] [id number] [place] [address] 12 Jan, 2012 [facility] [id number] [place] [address] Jan, [facility] [id number] [place] [address] 12 Jan, 2012 [facility] [id number] [place] [address] 16 Dec, 2011 [facility] [id number] [place] [address] 16 Dec, 2011 [facility] [id number] [place] [address] 16 Dec, 2011 [facility] [id number] [place] [address] 16 Dec, 2011 [facility] [id number] [place] [address] 17 Nov, 2011 [facility] [id number] [place] [address] 24 Oct, 2011 [facility] [id number] [place] [address] 14 Aug, 2011 [facility] [id number] [place] [address] 14 Aug, 2011 [facility] [id number] [place] [address] 14 Aug, 2011 [facility] [id number] [place] [address] 13 Aug, 2011 [facility] [id number] [place] [address] 13 Aug, 2011 [facility] [id number] [place] [address] 20 May, 2011 [facility] [id number] [place] [address] 16 Apr, 2011 [facility] [id number] [place] [address] 16 Apr, 2011 [facility] [id number] [place] [address] Mar, [facility] [id number] [place] [address] Mar, [facility] [id number] [place] [address] Dec, [facility] [id number] [place] [address] Dec, [facility] [id number] [place] [address] Dec, IMMUNIZATIONS No Known Immunizations SOCIAL HISTORY Never Assessed REASON FOR VISIT 3 mo f/fletcher Brantley MA PLAN OF CARE Activity Details Follow Up 3 Months Reason: VITAL SIGNS Height 75 in 2018-05-07 Blood pressure systolic 136 mmHg 2018-05-07 Blood pressure diastolic 80 mmHg 2018-05-07 MEDICATIONS Unknown Medications RESULTS No Results PROCEDURES Procedure Date Ordered Result Body Site DEBRIDE NAIL, 6 OR MORE May 07, 2018 INSTRUCTIONS MEDICATIONS ADMINISTERED No Known Medications MEDICAL [...]
--- OUTSIDE RECORDS SUMMARY | 2019-06-21 16:27 | XMS REPORT ---
Author Author Nick ABDI Organization [facility] Address [address] [place] [address] Care Team Providers Care Manager Animation Name Role Phone ELVIN ABDI Unavailable PROBLEMS Type Condition ICD9-CM Code FSN00-MU Code Onset Dates Condition S tatus SNOMED Code Problem Hyperlipidemia E78.5 Active 90237 004 Problem Left leg claudication I73.9 Active 278498514 Problem DM neuro manif type II E11.49 Active 43156466 Problem Impaired circulation I99.9 Active 47915810 Problem Reactive depression F32.9 Active 55979958 Problem Cigarette nicotine dependence with nicotine-induced di sorder F17.219 Active 18087337 Problem Arthritis M19.90 Active 0758338 Problem Hammertoe M20.40 Active 806238579 Problem Hypercholesteremia E78.00 Active 2 94645786 Problem Type 2 diabetes mellitus E11.9 Activ e 76170076 Problem Essential (primary) hypertension I10 Active 01224631 Problem Vitamin D deficiency E55.9 Active 36539316 Problem Carotid artery disease I77.9 Active 237447370 Problem Restless leg syndrome G25.81 Active 26058591 Problem 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 Active 95444 005 Problem Tobacco abuse Z72.0 Active 694568 05 Problem PAD (peripheral artery disease) I73.9 Active 673203789 Problem Onychomycosis B35.1 Active 358553 008 Problem Panlobular emphysema J43.1 Active 7873699 ALLERGIES No Information ENCOUNTERS Encounter Location Date Diagnosis [facility] [address] [id number] [place] [address] 10 Jun, 2019 [address] [place] [address] Apr, [address] [place] [address] 14 Apr, 2019 [facility] [address] [place] [address] Apr, Flu-like symptoms R68.89 [address] [place] [address] Apr, Flu-like symptoms R68.89 [address] [place] [address] Jan, Diarrhea, unspecified type R 19.7 [address] [place] [address] Jan, Type 2 diabetes mellitus E11 .9 ; Essential (primary) hypertension I10 ; Restless leg syndrome G25.81 ; Vitamin D deficiency E55.9 ; Diarrhea, unspecified type R19.7 and Encounter for immunization Z23 [address] [place] [address] Jan, Type 2 diabetes mellitus E11 .9 [address] [place] [address] Oct, Type 2 diabetes mellitus E11 .9 and Essential (primary) hypertension I10 [facility] [address] [id number] [place] [address] Oct, Onychomycosis B35.1 ; Diabetes mellitus E11.9 and Impaired circulation I99.9 [facility] [address] [place] [address] Oct, Diabetes mellitus E11.9 and Hypertension I10 [address] [place] [address] Oct, Hypertension I10 [address] [place] [address] Sep, [facility] [address] [id number] [place] [address] Sep, [address] [place] [address] Aug, [facility] [address] [id number] [place] [address] Aug, Panlobular emphysema J43.1 [address] [place] [address] Aug, Panlobular emphysema J43.[address] [place] [address] Aug, Panlobular emphysema J43.[address] [place] [address] Jul, Encounter for screening for malignant neoplasm of colon Z12.11 ; CAD (coronary artery disease) I25.10 ; Cigarette nicotine dependence with nicotine-induced disorder F17.219 ; Essential (primary) hypertension I10 ; Panlobular emphysema J43.1 and DM neuro manif type II E11.49 [address] [place] [address] Jul, Type 2 diabetes mellitus E11 .9 [address] [place] [address] Jul, [facility] [address] [id number] [place] [address] Jul, Onychomycosis B35.1 and DM neuro manif t ype II E11.49 [facility] [address] [id number] [place] [address] June, Diabetes mellitus E11.9 [address] [place] [address] May, [address] [place] [address] Apr, Type 2 diabetes mellitus E11 .9 [...] M20.40 ; Arthritis M19.90 and Hypoglycemia E16.2 [place] [address] [address] Apr, Diabetes mellitus E11.9 [place] [address] [address] Apr, Onychomycosis B35.1 ; Impaired circulati on I99.9 and DM neuro manif type II E11.49 [place] [address] [address] Jan, Diabetes mellitus E11.9 ; Hypertension I 10 and Encounter for immunization Z23 [address] [address] Jan, Diabetes mellitus E11.9 [place] [address] [address] Jan, [place] [address] [address] Jan, [place] [address] [address] Oct, Onychomycosis B35.1 ; DM neuro manif typ e II E11.49 and Impaired circulation I99.9 [place] [address] [address] Sep, [place] [address] [address] Aug, Hypoglycemia E16.2 [place] [address] [address] Aug, [place] [address] [address] Jul, [place] [address] [address] Jul, Elevated blood sugar R73.9 and Neck pain M54.2 [place] [address] [address] Jul, [place] [address] [address] Jul, Onychomycosis B35.1 and DM neuro manif t ype II E11.49 [place] [address] [address] Jul, [address] [address] June, Hyperlipidemia E78.[address] [address] June, Diabetes mellitus E11.9 ; CAD (coronary artery disease) I25.10 ; Arthritis M19.90 and Hyperlipidemia E78.5 [place] [address] [address] June, [address] [address] Apr, Onychomycosis B35.1 ; DM neuro manif typ e II E11.49 and Hammertoe M20.[address] [address] Apr, Diabetes mellitus E11.9 and Hypertension I10 [place] [address] [address] Mar, Hypertension I10 and Diabetes mellitus E 11.[address] [address] Mar, Hypertension I10 and Diabetes mellitus E 11.[address] [address] Jan, Onychomycosis B35.1 and DM neuro manif t ype II E11.49 [place] [address] [address] Dec, [place] [address] [address] Dec, [place] [address] [address] Dec, Hypertension I10 and Diabetes mellitus E 11.9 [place] [address] [address] Oct, Encounter for immunization Z23 ; Diabete s mellitus E11.9 ; Hypertension I10 and Cigarette nicotine dependence with nicotine-induced disorder F17.219 [place] [address] [address] Oct, Diabetes mellitus E11.9 [place] [address] [address] Oct, Onychomycosis B35.1 ; DM neuro manif typ e II E11.49 and Hammertoe M20.40 [place] [address] [address] Jul, Diabetes mellitus E11.9 [place] [address] [address] Jul, Onychomycosis B35.1 ; Hammertoe M20.40 a nd DM neuro manif type II E11.49 [place] [address] [address] May, Diabetes mellitus E11.9 [place] [address] [address] May, Diabetes mellitus E11.9 [place] [address] [address] Nov, Diabetes mellitus E11.9 ; Hypertension I 10 ; Reactive depression F32.9 and Encounter for immunization Z23 [place] [address] [address] Oct, Ulcer of other part of foot L97.509 [place] [address] [address] Sep, Onychomycosis B35.1 ; Ulcer of heel, lef t, with unspecified severity L97.429 and DM neuro manif type II E11.[address] [address] Sep, [address] [address] Sep, Ulcer of heel, left, with unspecified se verity L97.[address] [address] Aug, Onychomycosis B35.1 ; Ulcer of heel, lef t, with unspecified severity L97.429 and DM neuro manif type II E11.[address] [address] Jul, Diabetes mellitus E11.9 ; Hypertension I 10 ; Cigarette nicotine dependence with nicotine-induced disorder F17.219 and CAD (coronary artery disease) I25.[address] [address] Jul, Left leg claudication I73.9 ; Right leg claudication I73.9 ; CAD (coronary artery disease) I25.10 ; Hypertension I10 and Hyperlipidemia E78.[address] [address] Jul, Ulcer of heel, left, with unspecified se verity L97.429 and DM neuro manif type II E11.[address] [address] June, Ulcer of heel, left, with unspecified se verity L97.429 and Ulcer of other part of foot L97.[address] [address] June, Ulcer of heel, left, with unspecified se verity L97.429 and Ulcer of foot, left, with unspecified severity L97.529 [place] [address] [address] May, [place] [address] [address] May, [place] [address] [address] Apr, DM neuro manif type II E11.49 ; Hyperten yue I10 and Sleep apnea in adult G47.33 [place] [address] [address] Apr, [address] [address] Apr, Ulcer of foot L97.509 and DM neuro manif type II E11.[address] [address] Apr, Ulcer of other part of foot L97.509 and DM neuro manif type II E11.49 [place] [address] [address] Apr, Onychomycosis B35.1 ; Ingrown toenail L6 0.0 ; Impaired circulation I99.9 and DM neuro manif type II E11.[address] [address] Mar, Ulcer of other part of foot L97.509 ; On ychomycosis B35.1 and Diabetes mellitus E11.[address] [address] Dec, Encounter for immunization Z23 ; Hyperte nsion I10 and Diabetes mellitus E11.[address] [address] Dec, [address] [address] Dec, CAD (coronary artery disease) I25.10 ; H ypertension I10 ; Left leg claudication I73.9 and Hyperlipidemia E78.5 [facility] [address] [address] Nov, Onychomycosis B35.1 and Hammertoe M20.40 [facility] [address] [address] Sep, Coronary atherosclerosis of unspecified type of vessel, [place] or graft 414.00 [facility] [address] [address] Sep, Coronary atherosclerosis of unspecified type of vessel, [place] or graft 414.00 and Diabetes 250.00 [facility] [address] [address] May, [facility] [address] [address] May, [facility] [address] [address] Apr, [facility] [address] [address] Apr, [facility] [address] [address] Apr, [facility] [address] [address] Apr, [facility] [address] [address] Mar, [facility] [address] [address] Mar, [facility] [address] [address] Jan, [facility] [address] [address] Jan, [facility] [address] [address] Jan, [facility] [address] [address] Jan, [facility] [address] [id number] [place] [address] Jan, [facility] [address] [id number] [place] [address] Jan, [facility] [address] [id number] [place] [address] Jan, [facility] [address] [id number] [place] [address] Jan, [facility] [address] [facility] [id number] [place] [address] Jan, [facility] [address] [id number] [place] [address] Jan, [facility] [address] [id number] [place] [address] Jan, [facility] [address] [id number] [place] [address] Nov, [facility] [address] [id number] [place] [address] Nov, [facility] [address] [id number] [place] [address] Nov, [facility] [address] [id number] [place] [address] Nov, [facility] [address] [id number] [place] [address] Nov, [facility] [address] [id number] [place] [address] Nov, [facility] [address] [id number] [place] [address] Oct, [facility] [address] [id number] [place] [address] Oct, [facility] [address] [id number] [place] [address] Oct, [facility] [address] [id number] [facility] [place] [address] Oct, [facility] [address] [id number] [facility] [place] [address] Oct, [facility] [address] [facility] [id number] [facility] [place] [address] Oct, [facility] [address] [id number] [place] [address] Sep, [facility] [address] [facility] [id number] [place] [address] Sep, [facility] [address] [facility] [id number] [place] [address] Sep, [facility] [address] [id number] [place] [address] Sep, [facility] [address] [id number] [place] [address] Sep, [facility] [address] [id number] [place] [address] Sep, [facility] [address] [facility] [id number] [place] [address] Aug, [facility] [address] [id number] [place] [address] Aug, [facility] [address] [id number] [place] [address] Aug, [facility] [address] [id number] [place] [address] Aug, [facility] [address] [facility] [id number] [place] [address] Aug, [facility] [address] [id number] [place] [address] Aug, [facility] [address] [id number] [place] [address] Jul, [facility] [address] [id number] [place] [address] Jul, [facility] [address] [id number] [place] [address] Jul, [facility] [address] [id number] [place] [address] Jul, [facility] [address] [id number] [place] [address] June, [facility] [address] [id number] [place] [address] June, [facility] [address] [id number] [place] [address] June, [facility] [address] [id number] [place] [address] June, [facility] [address] [id number] [place] [address] May, [facility] [address] [id number] [place] [address] May, [facility] [address] [id number] [place] [address] May, [facility] [address] [id number] [place] [address] May, [facility] [address] [id number] [place] [address] May, [facility] [address] [id number] [place] [address] May, [facility] [address] [id number] [place] [address] Apr, [facility] [address] [id number] [place] [address] Apr, [facility] [address] [id number] [place] [address] Apr, [facility] [address] [id number] [place] [address] Apr, [facility] [address] [id number] [place] [address] Apr, 2013 [facility] [address] [id number] [place] [address] Apr, [facility] [address] [id number] [place] [address] Apr, [facility] [address] [id number] [place] [address] Jan, [facility] [address] [id number] [place] [address] Jan, [facility] [address] [id number] [place] [address] Jan, [facility] [address] [id number] [place] [address] Jan, [facility] [address] [id number] [place] [address] Jan, [facility] [address] [id number] [place] [address] Jan, [facility] [address] [id number] [place] [address] Dec, [facility] [address] [id number] [place] [address] Dec, [facility] [address] [id number] [place] [address] Dec, [facility] [address] [id number] [place] [address] Dec, [facility] [address] [id number] [place] [address] Dec, [facility] [address] [id number] [place] [address] Dec, [facility] [address] [id number] [place] [address] Nov, [facility] [address] [id number] [place] [address] Oct, [facility] [address] [id number] [place] [address] Oct, [facility] [address] [id number] [place] [address] Aug, [facility] [address] [id number] [place] [address] Aug, [facility] [address] [id number] [place] [address] Jul, [facility] [address] [id number] [place] [address] June, [facility] [address] [id number] [place] [address] Apr, [facility] [address] [id number] [place] [address] Apr, [facility] [address] [id number] [place] [address] Apr, [facility] [address] [id number] [place] [address] Apr, [facility] [address] [id number] [place] [address] Mar, [facility] [address] [id number] [place] [address] Jan, [facility] [address] [id number] [place] [address] Jan, [facility] [address] [id number] [place] [address] Jan, [facility] [address] [id number] [place] [address] Jan, [facility] [address] [id number] [place] [address] Jan, [facility] [address] [id number] [place] [address] Jan, [facility] [address] [id number] [place] [address] Jan, [facility] [address] [id number] [place] [address] 12 Jan, 2012 [facility] [address] [id number] [place] [address] 16 Dec, 2011 [facility] [address] [id number] [place] [address] 16 Dec, 2011 [facility] [address] [id number] [place] [address] 16 Dec, 2011 [facility] [address] [id number] [place] [address] 16 Dec, 2011 [facility] [address] [id number] [place] [address] 17 Nov, 2011 [facility] [address] [id number] [place] [address] 24 Oct, 2011 [facility] [address] [id number] [place] [address] 14 Aug, 2011 [facility] [address] [id number] [place] [address] 14 Aug, 2011 [facility] [address] [id number] [place] [address] 14 Aug, 2011 [facility] [address] [id number] [place] [address] 13 Aug, 2011 [facility] [address] [id number] [place] [address] 13 Aug, 2011 [facility] [address] [id number] [place] [address] Apr, [facility] [address] [id number] [place] [address] 16 Apr, 2011 [facility] [address] [id number] [place] [address] 16 Apr, 2011 [facility] [address] [id number] [place] [address] Mar, [facility] [address] [id number] [place] [address] Mar, [facility] [address] [id number] [place] [address] Dec, [facility] [address] [id number] [place] [address] Dec, [facility] [address] [id number] [place] [address] Dec, IMMUNIZATIONS No Known Immunizations SOCIAL HISTORY [...]
--- OUTSIDE RECORDS SUMMARY | 2019-06-21 16:28 | XMS REPORT ---
Author Author Nick ABDI Organization [facility] Address [address] [place] [address] Care Team Providers [employer] Sales Name Role Phone ELVIN ABDI Unavailable PROBLEMS Type Condition ICD9-CM Code MYL80-FR Code Onset Dates Condition S tatus SNOMED Code Problem Hyperlipidemia E78.5 Active 10816 004 Problem Left leg claudication I73.9 Active 675143052 Problem DM neuro manif type II E11.49 Active 51179120 Problem Impaired circulation I99.9 Active 57234086 Problem Reactive depression F32.9 Active 22587608 Problem Cigarette nicotine dependence with nicotine-induced di sorder F17.219 Active 02015314 Problem Arthritis M19.90 Active 1708467 Problem Hammertoe M20.40 Active 963132883 Problem Hypercholesteremia E78.00 Active 2 90998138 Problem Type 2 diabetes mellitus E11.9 Activ e 67307223 Problem Essential (primary) hypertension I10 Active 54513521 Problem Vitamin D deficiency E55.9 Active 50259417 Problem Carotid artery disease I77.9 Active 485944192 Problem Restless leg syndrome G25.81 Active 60628224 Problem 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 Active 21141 005 Problem Tobacco abuse Z72.0 Active 191279 05 Problem PAD (peripheral artery disease) I73.9 Active 922266315 Problem Onychomycosis B35.1 Active 663101 008 Problem Panlobular emphysema J43.1 Active 8868576 ALLERGIES No Information ENCOUNTERS Encounter Location Date Diagnosis [address] [place] [address] 09 May, 2019 [address] [place] [address] Jan, Diarrhea, unspecified type R 19.7 [address] [place] [address] Jan, Type 2 diabetes mellitus E11 .9 ; Essential (primary) hypertension I10 ; Restless leg syndrome G25.81 ; Vitamin D deficiency E55.9 ; Diarrhea, unspecified type R19.7 and Encounter for immunization Z23 [facility] [address] [place] [address] Jan, Type 2 diabetes mellitus E11 .[address] [place] [address] Oct, Type 2 diabetes mellitus E11 .9 and Essential (primary) hypertension I10 [facility] [id number] [place] [address] Oct, Onychomycosis B35.1 ; Diabetes mellitus E11.9 and Impaired circulation I99.9 [address] [place] [address] Oct, Diabetes mellitus E11.9 and Hypertension I10 [address] [place] [address] Oct, Hypertension I10 [address] [place] [address] Sep, [facility] [id number] [place] [address] Sep, [address] [place] [address] Aug, [facility] [id number] [place] [address] Aug, Panlobular emphysema J43.1 [address] [place] [address] Aug, Panlobular emphysema J43.[address] [place] [address] Aug, Panlobular emphysema J43.[address] [place] [address] Jul, Encounter for screening for malignant neoplasm of colon Z12.11 ; CAD (coronary artery disease) I25.10 ; Cigarette nicotine dependence with nicotine-induced disorder F17.219 ; Essential (primary) hypertension I10 ; Panlobular emphysema J43.1 and DM neuro manif type II E11.49 [address] [place] [address] Jul, Type 2 diabetes mellitus E11 .[address] [place] [address] Jul, [facility] [id number] [place] [address] Jul, Onychomycosis B35.1 and DM neuro manif t ype II E11.49 [facility] [id number] [place] [address] June, Diabetes mellitus E11.9 [address] [place] [address] May, [address] [place] [address] Apr, Type 2 diabetes mellitus E11 .9 [...] M20.40 ; Arthritis M19.90 and Hypoglycemia E16.2 [facility] [id number] [place] [address] Apr, Diabetes mellitus E11.9 [facility] [address] [address] Apr, Onychomycosis B35.1 ; Impaired circulati on I99.9 and DM neuro manif type II E11.49 [address] [address] Jan, Diabetes mellitus E11.9 ; Hypertension I 10 and Encounter for immunization Z23 [facility] [address] [address] Jan, Diabetes mellitus E11.9 [address] [address] Jan, [address] [address] Jan, [address] [address] Oct, Onychomycosis B35.1 ; DM neuro manif typ e II E11.49 and Impaired circulation I99.9 [address] [address] Sep, [address] [address] Aug, Hypoglycemia E16.2 [address] [address] Aug, [address] [address] Jul, [address] [address] Jul, Elevated blood sugar R73.9 and Neck pain M54.2 [address] [address] Jul, [address] [address] Jul, Onychomycosis B35.1 and DM neuro manif t ype II E11.49 [address] [address] Jul, [address] [address] June, Hyperlipidemia E78.5 [address] [address] June, Diabetes mellitus E11.9 ; CAD (coronary artery disease) I25.10 ; Arthritis M19.90 and Hyperlipidemia E78.5 [address] [address] June, [address] [address] Apr, Onychomycosis B35.1 ; DM neuro manif typ e II E11.49 and Hammertoe M20.[address] [address] Apr, Diabetes mellitus E11.9 and Hypertension I10 [address] [address] Mar, Hypertension I10 and Diabetes mellitus E 11.9 [address] [address] Mar, Hypertension I10 and Diabetes mellitus E 11.9 [address] [address] Jan, Onychomycosis B35.1 and DM neuro manif t ype II E11.49 [address] [address] Dec, [address] [address] Dec, [address] [address] Dec, Hypertension I10 and Diabetes mellitus E 11.9 [address] [address] Oct, Encounter for immunization Z23 ; Diabete s mellitus E11.9 ; Hypertension I10 and Cigarette nicotine dependence with nicotine-induced disorder F17.219 [address] [address] Oct, Diabetes mellitus E11.9 [address] [address] Oct, Onychomycosis B35.1 ; DM neuro manif typ e II E11.49 and Hammertoe M20.40 [address] [address] Jul, Diabetes mellitus E11.9 [address] [address] Jul, Onychomycosis B35.1 ; Hammertoe M20.40 a nd DM neuro manif type II E11.49 [address] [address] May, Diabetes mellitus E11.9 [address] [address] May, Diabetes mellitus E11.9 [address] [address] Nov, Diabetes mellitus E11.9 ; Hypertension I 10 ; Reactive depression F32.9 and Encounter for immunization Z23 [address] [address] Oct, Ulcer of other part of foot L97.509 [address] [address] Sep, Onychomycosis B35.1 ; Ulcer of heel, lef t, with unspecified severity L97.429 and DM neuro manif type II E11.49 [address] [address] Sep, [address] [address] Sep, Ulcer of heel, left, with unspecified se verity L97.[address] [address] Aug, Onychomycosis B35.1 ; Ulcer of heel, lef t, with unspecified severity L97.429 and DM neuro manif type II E11.[address] [address] Jul, Diabetes mellitus E11.9 ; Hypertension I 10 ; Cigarette nicotine dependence with nicotine-induced disorder F17.219 and CAD (coronary artery disease) I25.[address] [address] Jul, Left leg claudication I73.9 ; Right leg claudication I73.9 ; CAD (coronary artery disease) I25.10 ; Hypertension I10 and Hyperlipidemia E78.[address] [address] Jul, Ulcer of heel, left, with unspecified se verity L97.429 and DM neuro manif type II E11.[address] [address] June, Ulcer of heel, left, with unspecified se verity L97.429 and Ulcer of other part of foot L97.[address] [address] June, Ulcer of heel, left, with unspecified se verity L97.429 and Ulcer of foot, left, with unspecified severity L97.[address] [address] May, [address] [address] May, [address] [address] Apr, DM neuro manif type II E11.49 ; Hyperten yue I10 and Sleep apnea in adult G47.[address] [address] Apr, [address] [address] Apr, Ulcer of foot L97.509 and DM neuro manif type II E11.49 [address] [address] Apr, Ulcer of other part of foot L97.509 and DM neuro manif type II E11.[address] [address] Apr, Onychomycosis B35.1 ; Ingrown toenail L6 0.0 ; Impaired circulation I99.9 and DM neuro manif type II E11.[address] [address] Mar, Ulcer of other part of foot L97.509 ; On ychomycosis B35.1 and Diabetes mellitus E11.[address] [address] Dec, Encounter for immunization Z23 ; Hyperte nsion I10 and Diabetes mellitus E11.[address] [address] Dec, [address] [address] Dec, CAD (coronary artery disease) I25.10 ; H ypertension I10 ; Left leg claudication I73.9 and Hyperlipidemia E78.[address] [address] Nov, Onychomycosis B35.1 and Hammertoe M20.[address] [address] Sep, Coronary atherosclerosis of unspecified type of vessel, united keetoowah or graft 414.[address] [address] Sep, Coronary atherosclerosis of unspecified type of vessel, united [place] or graft 414.00 and Diabetes 250.00 [facility] [address] [id number] [place] [address] 14 May, 2014 [facility] [address] [id number] [place] [address] May, [facility] [address] [id number] [place] [address] Apr, [facility] [id number] [place] [address] Apr, [facility] [address] [id number] [place] [address] Apr, [facility] [id number] [place] [address] Apr, [facility] [address] [id number] [place] [address] Mar, [facility] [id number] [place] [address] Mar, [facility] [address] [id number] [place] [address] Jan, [facility] [id number] [place] [address] Jan, [facility] [id number] [place] [address] Jan, [facility] [id number] [place] [address] Jan, [facility] [address] [id number] [place] [address] Jan, [facility] [id number] [place] [address] Jan, [facility] [id number] [place] [address] Jan, [facility] [id number] [place] [address] Jan, [facility] [address] [id number] [place] [address] Jan, [facility] [address] [facility] [id number] [place] [address] Jan, [facility] [address] [facility] [id number] [place] [address] Jan, [facility] [address] [id number] [place] [address] Nov, [facility] [address] [id number] [place] [address] Nov, [facility] [address] [id number] [place] [address] Nov, [facility] [address] [id number] [place] [address] Nov, [facility] [address] [id number] [place] [address] Nov, [facility] [address] [id number] [place] [address] Nov, [facility] [address] [id number] [place] [address] Oct, [facility] [address] [id number] [place] [address] Oct, [facility] [address] [id number] [place] [address] Oct, [facility] [address] [id number] [place] [address] Oct, [facility] [address] [id number] [place] [address] Oct, [facility] [address] [id number] [place] [address] Oct, [facility] [address] [id number] [place] [address] Sep, [facility] [address] [id number] [place] [address] Sep, [facility] [address] [facility] [id number] [facility] [place] [address] Sep, [facility] [address] [facility] [id number] [place] [address] Sep, [facility] [address] [facility] [id number] [place] [address] Sep, [facility] [address] [id number] [place] [address] Sep, [facility] [address] [facility] [id number] [place] [address] Aug, [facility] [address] [facility] [id number] [place] [address] Aug, [facility] [address] [id number] [place] [address] Aug, [facility] [address] [id number] [place] [address] Aug, [facility] [address] [id number] [place] [address] Aug, [facility] [address] [facility] [id number] [place] [address] Aug, [facility] [address] [id number] [place] [address] Jul, [facility] [address] [id number] [place] [address] Jul, [facility] [address] [id number] [place] [address] Jul, [facility] [address] [facility] [id number] [place] [address] Jul, [facility] [address] [id number] [place] [address] June, [facility] [address] [facility] [id number] [place] [address] June, [facility] [address] [id number] [place] [address] June, [facility] [address] [id number] [place] [address] June, [facility] [address] [id number] [place] [address] May, [facility] [address] [id number] [place] [address] May, [facility] [address] [id number] [place] [address] May, [facility] [address] [facility] [id number] [place] [address] May, [facility] [address] [id number] [place] [address] May, [facility] [address] [id number] [place] [address] May, [facility] [address] [id number] [place] [address] Apr, [facility] [address] [id number] [place] [address] Apr, [facility] [address] [id number] [place] [address] Apr, [facility] [address] [id number] [place] [address] Apr, [facility] [address] [id number] [place] [address] Apr, [facility] [address] [id number] [place] [address] Apr, [facility] [address] [id number] [place] [address] Apr, [facility] [address] [id number] [place] [address] Jan, [facility] [address] [id number] [place] [address] Jan, [facility] [address] [id number] [place] [address] Jan, [facility] [address] [id number] [place] [address] Jan, [facility] [address] [id number] [place] [address] Jan, [facility] [address] [id number] [place] [address] Jan, [facility] [address] [id number] [place] [address] Dec, [facility] [address] [id number] [place] [address] Dec, [facility] [id number] [place] [address] Dec, [facility] [id number] [place] [address] Dec, [facility] [id number] [place] [address] Dec, [facility] [address] [id number] [place] [address] Dec, [facility] [id number] [place] [address] Nov, [facility] [address] [id number] [place] [address] Oct, [facility] [id number] [place] [address] Oct, [facility] [address] [id number] [place] [address] Aug, [facility] [id number] [place] [address] Aug, [facility] [address] [id number] [place] [address] Jul, [facility] [address] [id number] [place] [address] June, [facility] [address] [id number] [place] [address] Apr, [facility] [address] [id number] [place] [address] Apr, [facility] [address] [id number] [place] [address] Apr, [facility] [address] [id number] [place] [address] Apr, [facility] [address] [id number] [place] [address] Mar, [facility] [address] [id number] [place] [address] Jan, [facility] [address] [id number] [place] [address] Jan, [facility] [id number] [place] [address] Jan, [facility] [address] [id number] [place] [address] Jan, [facility] [address] [id number] [place] [address] Jan, [facility] [address] [id number] [place] [address] Jan, [facility] [address] [id number] [place] [address] Jan, [facility] [address] [id number] [place] [address] Jan, [facility] [address] [id number] [place] [address] Nov, [facility] [address] [id number] [place] [address] Nov, [facility] [address] [id number] [place] [address] Nov, [facility] [address] [id number] [place] [address] 16 Dec, 2011 [facility] [id number] [place] [address] 17 Nov, 2011 [facility] [id number] [place] [address] 24 Oct, 2011 [facility] [id number] [place] [address] 14 Aug, 2011 [facility] [id number] [place] [address] 14 Aug, 2011 [facility] [id number] [place] [address] 14 Aug, 2011 [facility] [id number] [place] [address] 13 Aug, 2011 [facility] [id number] [place] [address] Jul, [facility] [id number] [place] [address] Apr, [facility] [id number] [place] [address] Apr, [facility] [id number] [place] [address] Apr, [facility] [id number] [place] [address] Mar, [facility] [id number] [place] [address] Mar, [facility] [id number] [place] [address] Dec, [facility] [id number] [place] [address] Dec, [facility] [address] [id number] [place] [address] Dec, IMMUNIZATIONS No Known Immunizations SOCIAL HISTORY [...]
--- OUTSIDE RECORDS SUMMARY | 2019-06-21 16:28 | XMS REPORT ---
Author Author Nick Roberts Doctor Organization [facility] Address Unknown Phone Unavailable Care Team Providers Care Software Support Technician Name Role Phone Migration, Doctor Unavailable Unavailable PROBLEMS Type Condition ICD9-CM Code XYX37-HF Code Onset Dates Condition S tatus SNOMED Code Problem Hyperlipidemia E78.5 Active 66091 004 Problem Left leg claudication I73.9 Active 769364050 Problem DM neuro manif type II E11.49 Active 98560013 Problem Impaired circulation I99.9 Active 22763499 Problem Reactive depression F32.9 Active 57248352 Problem Cigarette nicotine dependence with nicotine-induced di sorder F17.219 Active 90492630 Problem Arthritis M19.90 Active 8175173 Problem Hammertoe M20.40 Active 889545680 Problem Hypercholesteremia E78.00 Active 2 46439488 Problem Type 2 diabetes mellitus E11.9 Activ e 23664341 Problem Essential (primary) hypertension I10 Active 08600229 Problem Vitamin D deficiency E55.9 Active 92041762 Problem Carotid artery disease I77.9 Active 713169014 Problem Restless leg syndrome G25.81 Active 73483128 Problem 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 Active 31501 005 Problem Tobacco abuse Z72.0 Active 759061 05 Problem PAD (peripheral artery disease) I73.9 Active 940600399 Problem Onychomycosis B35.1 Active 823765 008 Problem Panlobular emphysema J43.1 Active 6728137 ALLERGIES No Information ENCOUNTERS Encounter Location Date Diagnosis [facility] [address] [facility] [id number] [place] [address] May, [address] [place] [address] Apr, [address] [place] [address] Apr, [address] [place] [address] Apr, Flu-like symptoms R68.89 [address] [place] [address] 14 Apr, 2019 Flu-like symptoms R68.89 [address] [place] [address] Jan, Diarrhea, unspecified type R 19.7 [address] [place] [address] Jan, Type 2 diabetes mellitus E11 .9 ; Essential (primary) hypertension I10 ; Restless leg syndrome G25.81 ; Vitamin D deficiency E55.9 ; Diarrhea, unspecified type R19.7 and Encounter for immunization Z23 [address] [place] [address] Jan, Type 2 diabetes mellitus E11 .[address] [address] [place] [address] Oct, Type 2 diabetes mellitus E11 .9 and Essential (primary) hypertension I10 [facility] [address] [id number] [place] [address] Oct, Onychomycosis B35.1 ; Diabetes mellitus E11.9 and Impaired circulation I99.9 [address] [place] [address] Oct, Diabetes mellitus E11.9 and Hypertension I10 [address] [place] [address] Oct, Hypertension I10 [address] [place] [address] Sep, [facility] [id number] [place] [address] Sep, [address] [place] [address] Aug, [facility] [address] [id number] [place] [address] Aug, Panlobular emphysema J43.[address] [place] [address] Aug, Panlobular emphysema J43.[address] [place] [address] Aug, Panlobular emphysema J43.[address] [place] [address] Jul, Encounter for screening for malignant neoplasm of colon Z12.11 ; CAD (coronary artery disease) I25.10 ; Cigarette nicotine dependence with nicotine-induced disorder F17.219 ; Essential (primary) hypertension I10 ; Panlobular emphysema J43.1 and DM neuro manif type II E11.[address] [place] [address] Jul, Type 2 diabetes mellitus E11 .9 [address] [place] [address] Jul, [facility] [address] [id number] [place] [address] Jul, Onychomycosis B35.1 and DM neuro manif t ype II E11.49 [facility] [address] [id number] [place] [address] June, Diabetes mellitus E11.9 [address] [place] [address] May, [address] [place] [address] Apr, Type 2 diabetes mellitus E11 .9 [...] M20.40 ; Arthritis M19.90 and Hypoglycemia E16.2 [facility] [address] [address] Apr, Diabetes mellitus E11.9 [place] [address] [address] Apr, Onychomycosis B35.1 ; Impaired circulati on I99.9 and DM neuro manif type II E11.49 [place] [address] [address] Jan, Diabetes mellitus E11.9 ; Hypertension I 10 and Encounter for immunization Z23 [place] [address] [address] Jan, Diabetes mellitus E11.9 [place] [address] [address] Jan, [place] [address] [address] Jan, [place] [address] [address] Oct, Onychomycosis B35.1 ; DM neuro manif typ e II E11.49 and Impaired circulation I99.9 [place] [address] [address] Sep, [place] [address] [address] Aug, Hypoglycemia E16.2 [place] [address] [address] Aug, [place] [address] [address] Jul, [place] [address] [address] Jul, Elevated blood sugar R73.9 and Neck pain M54.2 [place] [address] [address] Jul, [place] [address] [address] Jul, Onychomycosis B35.1 and DM neuro manif t ype II E11.49 [place] [address] [address] Jul, [place] [address] [address] June, Hyperlipidemia E78.[address] [address] June, Diabetes mellitus E11.9 ; CAD (coronary artery disease) I25.10 ; Arthritis M19.90 and Hyperlipidemia E78.[address] [address] June, [place] [address] [address] Apr, Onychomycosis B35.1 ; DM neuro manif typ e II E11.49 and Hammertoe M20.[address] [address] Apr, Diabetes mellitus E11.9 and Hypertension I10 [address] [address] Mar, Hypertension I10 and Diabetes mellitus E 11.9 [place] [address] [address] Mar, Hypertension I10 and Diabetes mellitus E 11.[address] [address] Jan, Onychomycosis B35.1 and DM neuro manif t ype II E11.49 [place] [address] [address] Dec, [place] [address] [address] Dec, [place] [address] [address] Dec, Hypertension I10 and Diabetes mellitus E 11.9 [place] [address] [address] Oct, Encounter for immunization Z23 ; Diabete s mellitus E11.9 ; Hypertension I10 and Cigarette nicotine dependence with nicotine-induced disorder F17.219 [place] [address] [address] Oct, Diabetes mellitus E11.9 [place] [address] [address] Oct, Onychomycosis B35.1 ; DM neuro manif typ e II E11.49 and Hammertoe M20.40 [place] [address] [address] Jul, Diabetes mellitus E11.9 [place] [address] [address] Jul, Onychomycosis B35.1 ; Hammertoe M20.40 a nd DM neuro manif type II E11.49 [place] [address] [address] 24 May, 2016 Diabetes mellitus E11.9 [place] [address] [address] May, Diabetes mellitus E11.9 [place] [address] [address] Nov, Diabetes mellitus E11.9 ; Hypertension I 10 ; Reactive depression F32.9 and Encounter for immunization Z23 [place] [address] [address] Oct, Ulcer of other part of foot L97.509 [place] [address] [address] Sep, Onychomycosis B35.1 ; Ulcer of heel, lef t, with unspecified severity L97.429 and DM neuro manif type II E11.49 [place] [address] Sep, [address] [address] Sep, Ulcer of heel, left, with unspecified se verity L97.[address] [address] Aug, Onychomycosis B35.1 ; Ulcer of heel, lef t, with unspecified severity L97.429 and DM neuro manif type II E11.[address] [address] Jul, Diabetes mellitus E11.9 ; Hypertension I 10 ; Cigarette nicotine dependence with nicotine-induced disorder F17.219 and CAD (coronary artery disease) I25.[address] [address] Jul, Left leg claudication I73.9 ; Right leg claudication I73.9 ; CAD (coronary artery disease) I25.10 ; Hypertension I10 and Hyperlipidemia E78.[address] [address] Jul, Ulcer of heel, left, with unspecified se verity L97.429 and DM neuro manif type II E11.[address] [address] June, Ulcer of heel, left, with unspecified se verity L97.429 and Ulcer of other part of foot L97.[address] [address] June, Ulcer of heel, left, with unspecified se verity L97.429 and Ulcer of foot, left, with unspecified severity L97.[address] [address] May, [place] [address] [address] May, [address] [address] Apr, DM neuro manif type II E11.49 ; Hyperten yue I10 and Sleep apnea in adult G47.[address] [address] Apr, [address] [address] Apr, Ulcer of foot L97.509 and DM neuro manif type II E11.[address] [address] Apr, Ulcer of other part of foot L97.509 and DM neuro manif type II E11.[address] [address] Apr, Onychomycosis B35.1 ; Ingrown toenail L6 0.0 ; Impaired circulation I99.9 and DM neuro manif type II E11.[address] [address] Mar, Ulcer of other part of foot L97.509 ; On ychomycosis B35.1 and Diabetes mellitus E11.[address] [address] Dec, Encounter for immunization Z23 ; Hyperte nsion I10 and Diabetes mellitus E11.[address] [address] Dec, [address] [address] Dec, CAD (coronary artery disease) I25.10 ; H ypertension I10 ; Left leg claudication I73.9 and Hyperlipidemia E78.[address] [address] Nov, Onychomycosis B35.1 and Hammertoe M20.40 [facility] [id number] [place] [address] Sep, Coronary atherosclerosis of unspecified type of vessel, [place] or graft 414.00 [facility] [id number] [place] [address] Sep, Coronary atherosclerosis of unspecified type of vessel, [place] or graft 414.00 and Diabetes 250.00 [facility] [id number] [place] [address] May, [facility] [address] [address] May, [facility] [id number] [place] [address] Apr, [facility] [address] [address] Apr, [facility] [address] [address] Apr, [facility] [id number] [place] [address] Apr, [facility] [id number] [place] [address] Mar, [facility] [id number] [place] [address] Mar, [facility] [id number] [place] [address] Jan, [facility] [id number] [place] [address] Jan, [facility] [id number] [place] [address] Jan, [facility] [id number] [place] [address] Jan, [facility] [id number] [place] [address] Jan, [facility] [address] [id number] [place] [address] Jan, [facility] [address] [id number] [place] [address] Jan, [facility] [address] [id number] [place] [address] Jan, [facility] [address] [id number] [place] [address] Jan, [facility] [address] [id number] [place] [address] Jan, [facility] [address] [id number] [place] [address] Jan, [facility] [address] [id number] [place] [address] Nov, [facility] [address] [id number] [place] [address] Nov, [facility] [address] [id number] [place] [address] Nov, [facility] [address] [id number] [place] [address] Nov, [facility] [address] [id number] [place] [address] Nov, [facility] [address] [id number] [place] [address] Nov, [facility] [address] [id number] [place] [address] Oct, [facility] [address] [id number] [place] [address] Oct, [facility] [address] [id number] [place] [address] Oct, [facility] [address] [id number] [place] [address] Oct, [facility] [address] [id number] [place] [address] 05 Oct, 2013 [facility] [address] [id number] [place] [address] Oct, [facility] [address] [facility] [id number] [place] [address] Sep, [facility] [address] [id number] [place] [address] Sep, [facility] [address] [id number] [place] [address] Sep, [facility] [address] [facility] [id number] [place] [address] Sep, [facility] [address] [id number] [place] [address] Sep, [facility] [address] [id number] [place] [address] Sep, [facility] [address] [id number] [place] [address] Aug, [facility] [address] [facility] [id number] [place] [address] Aug, [facility] [address] [id number] [place] [address] Aug, [facility] [address] [id number] [place] [address] Aug, [facility] [address] [id number] [place] [address] Aug, [facility] [address] [facility] [id number] [place] [address] Aug, [facility] [address] [id number] [place] [address] Jul, [facility] [address] [id number] [place] [address] Jul, [facility] [address] [id number] [place] [address] Jul, [facility] [address] [id number] [place] [address] Jul, [facility] [address] [id number] [place] [address] June, [facility] [address] [id number] [place] [address] June, [facility] [address] [id number] [place] [address] June, [facility] [address] [id number] [place] [address] June, [facility] [address] [id number] [place] [address] May, [facility] [address] [id number] [place] [address] May, [facility] [address] [id number] [place] [address] May, [facility] [address] [id number] [place] [address] May, [facility] [address] [id number] [place] [address] May, [facility] [address] [id number] [place] [address] May, [facility] [address] [id number] [place] [address] Apr, [facility] [address] [id number] [place] [address] Apr, [facility] [address] [id number] [place] [address] Apr, [facility] [address] [id number] [place] [address] Apr, [facility] [address] [id number] [place] [address] Apr, [facility] [address] [id number] [place] [address] 05 Apr, 2013 [facility] [address] [id number] [place] [address] Apr, [facility] [address] [id number] [place] [address] Jan, [facility] [address] [id number] [place] [address] Jan, [facility] [id number] [place] [address] Jan, [facility] [address] [id number] [place] [address] Jan, [facility] [address] [id number] [place] [address] Jan, [facility] [address] [id number] [place] [address] Jan, [facility] [id number] [place] [address] Dec, [facility] [address] [id number] [place] [address] Dec, [facility] [id number] [place] [address] Dec, [facility] [address] [id number] [place] [address] Dec, [facility] [id number] [place] [address] Dec, [facility] [address] [id number] [place] [address] Dec, [facility] [id number] [place] [address] Nov, [facility] [address] [id number] [place] [address] Oct, [facility] [address] [id number] [place] [address] Oct, [facility] [address] [id number] [place] [address] Aug, [facility] [address] [id number] [place] [address] Aug, [facility] [address] [id number] [place] [address] Jul, [facility] [address] [id number] [place] [address] June, [facility] [address] [id number] [place] [address] Apr, [facility] [address] [id number] [place] [address] Apr, [facility] [address] [id number] [place] [address] Apr, [facility] [address] [id number] [place] [address] Apr, [facility] [address] [id number] [place] [address] Mar, [facility] [address] [id number] [place] [address] Jan, [facility] [address] [id number] [place] [address] Jan, [facility] [address] [id number] [place] [address] Jan, [facility] [address] [id number] [place] [address] Jan, [facility] [address] [id number] [place] [address] Jan, [facility] [address] [id number] [place] [address] Jan, [facility] [address] [id number] [place] [address] Jan, [facility] [address] [id number] [place] [address] Jan, [facility] [address] [facility] [id number] [place] [address] 16 Dec, 2011 [facility] [address] [facility] [id number] [place] [address] 16 Dec, 2011 [facility] [address] [id number] [place] [address] 16 Dec, 2011 [facility] [address] [id number] [place] [address] 16 Dec, 2011 [facility] [address] [facility] [id number] [place] [id number] 17 Nov, 2011 [facility] [address] [id number] [place] [address] 24 Oct, 2011 [facility] [address] [id number] [place] [id number] 14 Aug, 2011 [facility] [address] [id number] [place] [id number] 14 Aug, 2011 [facility] [address] [id number] [place] [address] 14 Aug, 2011 [facility] [address] [id number] [place] [address] 13 Aug, 2011 [facility] [address] [id number] [place] [address] 13 Aug, 2011 [facility] [address] [id number] [place] [address] Apr, [facility] [address] [id number] [place] [id number] 16 Apr, 2011 [facility] [address] [id number] [place] [address] Apr, [facility] [address] [id number] [place] [address] Mar, [facility] [address] [id number] [place] [address] Mar, [facility] [address] [id number] [place] [address] Dec, [facility] [address] [facility] [id number] [place] [address] Dec, [facility] [address] [facility] [id number] [place] [address] Dec, IMMUNIZATIONS No Known Immunizations SOCIAL HISTORY Never Assessed REASON FOR VISIT PLAN OF CARE VITAL SIGNS Height 75 in 2013-07-20 Weight 233 lbs 2013-07-20 Heart Rate 60 bpm 2013-07-20 Blood pressure systolic 0 mmHg 2013-07-20 Blood pressure diastolic 0 mmHg 2013-07-20 MEDICATIONS Unknown Medications RESULTS No Results PROCEDURES Procedure Date Ordered Result Body Site HT MUSCLE IMAGE SPECT MULT July 20, 2013 TTE W/DOPPLER, COMPLETE July 20, 2013 MEASURE BLOOD OXYGEN LEVEL July 20, 2013 INSTRUCTIONS MEDICATIONS ADMINISTERED No Known Medications [...]
--- OUTSIDE RECORDS SUMMARY | 2019-06-21 16:28 | XMS REPORT ---
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 Name Role Phone ELVIN ABDI Unavailable PROBLEMS Type Condition ICD9-CM Code PHH26-ZK Code Onset Dates Condition S tatus SNOMED Code Problem Hyperlipidemia E78.5 Active 82709 004 Problem Left leg claudication I73.9 Active 355703345 Problem DM neuro manif type II E11.49 Active 59620447 Problem Impaired circulation I99.9 Active 74900700 Problem Reactive depression F32.9 Active 79627085 Problem Cigarette nicotine dependence with nicotine-induced di sorder F17.219 Active 81705054 Problem Arthritis M19.90 Active 2880866 Problem Hammertoe M20.40 Active 191672498 Problem Hypercholesteremia E78.00 Active 2 21476458 Problem Type 2 diabetes mellitus E11.9 Activ e 42635758 Problem Essential (primary) hypertension I10 Active 58728292 Problem Vitamin D deficiency E55.9 Active 05826773 Problem Carotid artery disease I77.9 Active 205262042 Problem Restless leg syndrome G25.81 Active 90079427 Problem 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 Active 61675 005 Problem Tobacco abuse Z72.0 Active 802307 05 Problem PAD (peripheral artery disease) I73.9 Active 419459441 Problem Onychomycosis B35.1 Active 783900 008 Problem Panlobular emphysema J43.1 Active 9214931 ALLERGIES No Information ENCOUNTERS Encounter Location Date Diagnosis [address] [place] [address] 09 May, 2019 [address] [place] [address] Jan, Diarrhea, unspecified type R 19.7 [address] [place] [address] Jan, Type 2 diabetes mellitus E11 .9 ; Essential (primary) hypertension I10 ; Restless leg syndrome G25.81 ; Vitamin D deficiency E55.9 ; Diarrhea, unspecified type R19.7 and Encounter for immunization Z23 [facility] [address] [place] [address] Jan, Type 2 diabetes mellitus E11 .[address] [place] [address] Oct, Type 2 diabetes mellitus E11 .9 and Essential (primary) hypertension I10 [facility] [id number] [place] [address] Oct, Onychomycosis B35.1 ; Diabetes mellitus E11.9 and Impaired circulation I99.[address] [place] [address] Oct, Diabetes mellitus E11.9 and Hypertension I10 [address] [place] [address] Oct, Hypertension I10 [address] [place] [address] Sep, [facility] [id number] [place] [address] Sep, [address] [place] [address] Aug, [facility] [id number] [place] [address] Aug, Panlobular emphysema J43.[address] [place] [address] Aug, Panlobular emphysema J43.[address] [place] [address] Aug, Panlobular emphysema J43.[address] [place] [address] Jul, Encounter for screening for malignant neoplasm of colon Z12.11 ; CAD (coronary artery disease) I25.10 ; Cigarette nicotine dependence with nicotine-induced disorder F17.219 ; Essential (primary) hypertension I10 ; Panlobular emphysema J43.1 and DM neuro manif type II E11.[address] [place] [address] Jul, Type 2 diabetes mellitus E11 .[address] [place] [address] Jul, [facility] [id number] [place] [address] Jul, Onychomycosis B35.1 and DM neuro manif t ype II E11.49 [facility] [id number] [place] [address] June, Diabetes mellitus E11.[address] [place] [address] May, [address] [place] [address] Apr, Type 2 diabetes mellitus E11 .9 [...] M20.40 ; Arthritis M19.90 and Hypoglycemia E16.2 [facility] [id number] [place] [address] Apr, Diabetes mellitus E11.9 [facility] [address] [address] Apr, Onychomycosis B35.1 ; Impaired circulati on I99.9 and DM neuro manif type II E11.49 [address] [address] Jan, Diabetes mellitus E11.9 ; Hypertension I 10 and Encounter for immunization Z23 [facility] [address] [address] Jan, Diabetes mellitus E11.9 [address] [address] Jan, [address] [address] Jan, [address] [address] Oct, Onychomycosis B35.1 ; DM neuro manif typ e II E11.49 and Impaired circulation I99.9 [address] [address] Sep, [address] [address] Aug, Hypoglycemia E16.2 [address] [address] Aug, [address] [address] Jul, [address] [address] Jul, Elevated blood sugar R73.9 and Neck pain M54.2 [address] [address] Jul, [address] [address] Jul, Onychomycosis B35.1 and DM neuro manif t ype II E11.49 [address] [address] Jul, [address] [address] June, Hyperlipidemia E78.5 [address] [address] June, Diabetes mellitus E11.9 ; CAD (coronary artery disease) I25.10 ; Arthritis M19.90 and Hyperlipidemia E78.5 [address] [address] June, [address] [address] Apr, Onychomycosis B35.1 ; DM neuro manif typ e II E11.49 and Hammertoe M20.[address] [address] Apr, Diabetes mellitus E11.9 and Hypertension I10 [address] [address] Mar, Hypertension I10 and Diabetes mellitus E 11.9 [address] [address] Mar, Hypertension I10 and Diabetes mellitus E 11.9 [address] [address] Jan, Onychomycosis B35.1 and DM neuro manif t ype II E11.49 [address] [address] Dec, [address] [address] Dec, [address] [address] Dec, Hypertension I10 and Diabetes mellitus E 11.9 [address] [address] Oct, Encounter for immunization Z23 ; Diabete s mellitus E11.9 ; Hypertension I10 and Cigarette nicotine dependence with nicotine-induced disorder F17.219 [address] [address] Oct, Diabetes mellitus E11.9 [address] [address] Oct, Onychomycosis B35.1 ; DM neuro manif typ e II E11.49 and Hammertoe M20.40 [address] [address] Jul, Diabetes mellitus E11.9 [address] [address] Jul, Onychomycosis B35.1 ; Hammertoe M20.40 a nd DM neuro manif type II E11.49 [address] [address] May, Diabetes mellitus E11.9 [address] [address] May, Diabetes mellitus E11.9 [address] [address] Nov, Diabetes mellitus E11.9 ; Hypertension I 10 ; Reactive depression F32.9 and Encounter for immunization Z23 [address] [address] Oct, Ulcer of other part of foot L97.509 [address] [address] Sep, Onychomycosis B35.1 ; Ulcer of heel, lef t, with unspecified severity L97.429 and DM neuro manif type II E11.49 [address] [address] Sep, [address] [address] Sep, Ulcer of heel, left, with unspecified se verity L97.[address] [address] Aug, Onychomycosis B35.1 ; Ulcer of heel, lef t, with unspecified severity L97.429 and DM neuro manif type II E11.[address] [address] Jul, Diabetes mellitus E11.9 ; Hypertension I 10 ; Cigarette nicotine dependence with nicotine-induced disorder F17.219 and CAD (coronary artery disease) I25.[address] [address] Jul, Left leg claudication I73.9 ; Right leg claudication I73.9 ; CAD (coronary artery disease) I25.10 ; Hypertension I10 and Hyperlipidemia E78.[address] [address] Jul, Ulcer of heel, left, with unspecified se verity L97.429 and DM neuro manif type II E11.[address] [address] June, Ulcer of heel, left, with unspecified se verity L97.429 and Ulcer of other part of foot L97.[address] [address] June, Ulcer of heel, left, with unspecified se verity L97.429 and Ulcer of foot, left, with unspecified severity L97.[address] [address] May, [address] [address] May, [address] [address] Apr, DM neuro manif type II E11.49 ; Hyperten yue I10 and Sleep apnea in adult G47.[address] [address] Apr, [address] [address] Apr, Ulcer of foot L97.509 and DM neuro manif type II E11.49 [address] [address] Apr, Ulcer of other part of foot L97.509 and DM neuro manif type II E11.[address] [address] Apr, Onychomycosis B35.1 ; Ingrown toenail L6 0.0 ; Impaired circulation I99.9 and DM neuro manif type II E11.[address] [address] Mar, Ulcer of other part of foot L97.509 ; On ychomycosis B35.1 and Diabetes mellitus E11.[address] [address] Dec, Encounter for immunization Z23 ; Hyperte nsion I10 and Diabetes mellitus E11.[address] [address] Dec, [address] [address] Dec, CAD (coronary artery disease) I25.10 ; H ypertension I10 ; Left leg claudication I73.9 and Hyperlipidemia E78.[address] [address] Nov, Onychomycosis B35.1 and Hammertoe M20.[address] [address] Sep, Coronary atherosclerosis of unspecified type of vessel, creek or graft 414.[address] [address] Sep, Coronary atherosclerosis of unspecified type of vessel, creek or graft 414.00 and Diabetes 250.00 [facility] [address] [id number] [place] [address] 14 May, 2014 [facility] [address] [id number] [place] [address] May, [facility] [address] [id number] [place] [address] Apr, [facility] [id number] [place] [address] Apr, [facility] [address] [id number] [place] [address] Apr, [facility] [id number] [place] [address] Apr, [facility] [address] [id number] [place] [address] Mar, [facility] [id number] [place] [address] Mar, [facility] [address] [id number] [place] [address] Jan, [facility] [id number] [place] [address] Jan, [facility] [id number] [place] [address] Jan, [facility] [id number] [place] [address] Jan, [facility] [address] [id number] [place] [address] Jan, [facility] [id number] [place] [address] Jan, [facility] [id number] [place] [address] Jan, [facility] [id number] [place] [address] Jan, [facility] [address] [id number] [place] [address] Jan, [facility] [address] [facility] [id number] [place] [address] Jan, [facility] [address] [facility] [id number] [place] [address] Jan, [facility] [address] [id number] [place] [address] Nov, [facility] [address] [id number] [place] [address] Nov, [facility] [address] [id number] [place] [address] Nov, [facility] [address] [id number] [place] [address] Nov, [facility] [address] [id number] [place] [address] Nov, [facility] [address] [id number] [place] [address] Nov, [facility] [address] [id number] [place] [address] Oct, [facility] [address] [id number] [place] [address] Oct, [facility] [address] [id number] [place] [address] Oct, [facility] [address] [id number] [place] [address] Oct, [facility] [address] [id number] [place] [address] Oct, [facility] [address] [id number] [place] [address] Oct, [facility] [address] [id number] [place] [address] Sep, [facility] [address] [id number] [place] [address] Sep, [facility] [address] [facility] [id number] [facility] [place] [address] Sep, [facility] [address] [facility] [id number] [place] [address] Sep, [facility] [address] [facility] [id number] [place] [address] Sep, [facility] [address] [id number] [place] [address] Sep, [facility] [address] [facility] [id number] [place] [address] Aug, [facility] [address] [facility] [id number] [place] [address] Aug, [facility] [address] [id number] [place] [address] Aug, [facility] [address] [id number] [place] [address] Aug, [facility] [address] [id number] [place] [address] Aug, [facility] [address] [facility] [id number] [place] [address] Aug, [facility] [address] [id number] [place] [address] Jul, [facility] [address] [id number] [place] [address] Jul, [facility] [address] [id number] [place] [address] Jul, [facility] [address] [facility] [id number] [place] [address] Jul, [facility] [address] [id number] [place] [address] June, [facility] [address] [facility] [id number] [place] [address] June, [facility] [address] [id number] [place] [address] June, [facility] [address] [id number] [place] [address] June, [facility] [address] [id number] [place] [address] May, [facility] [address] [id number] [place] [address] May, [facility] [address] [id number] [place] [address] May, [facility] [address] [facility] [id number] [place] [address] May, [facility] [address] [id number] [place] [address] May, [facility] [address] [id number] [place] [address] May, [facility] [address] [id number] [place] [address] Apr, [facility] [address] [id number] [place] [address] Apr, [facility] [address] [id number] [place] [address] Apr, [facility] [address] [id number] [place] [address] Apr, [facility] [address] [id number] [place] [address] Apr, [facility] [address] [id number] [place] [address] Apr, [facility] [address] [id number] [place] [address] Apr, [facility] [address] [id number] [place] [address] Jan, [facility] [address] [id number] [place] [address] Jan, [facility] [address] [id number] [place] [address] Jan, [facility] [address] [id number] [place] [address] Jan, [facility] [address] [id number] [place] [address] Jan, [facility] [address] [id number] [place] [address] Jan, [facility] [address] [id number] [place] [address] Dec, [facility] [address] [id number] [place] [address] Dec, [facility] [id number] [place] [address] Dec, [facility] [id number] [place] [address] Dec, [facility] [id number] [place] [address] Dec, [facility] [address] [id number] [place] [address] Dec, [facility] [id number] [place] [address] Nov, [facility] [address] [id number] [place] [address] Oct, [facility] [id number] [place] [address] Oct, [facility] [address] [id number] [place] [address] Aug, [facility] [id number] [place] [address] Aug, [facility] [address] [id number] [place] [address] Jul, [facility] [address] [id number] [place] [address] June, [facility] [address] [id number] [place] [address] Apr, [facility] [address] [id number] [place] [address] Apr, [facility] [address] [id number] [place] [address] Apr, [facility] [address] [id number] [place] [address] Apr, [facility] [address] [id number] [place] [address] Mar, [facility] [address] [id number] [place] [address] Jan, [facility] [address] [id number] [place] [address] Jan, [facility] [id number] [place] [address] Jan, [facility] [address] [id number] [place] [address] Jan, [facility] [address] [id number] [place] [address] Jan, [facility] [address] [id number] [place] [address] Jan, [facility] [address] [id number] [place] [address] Jan, [facility] [address] [id number] [place] [address] Jan, [facility] [address] [id number] [place] [address] Nov, [facility] [address] [id number] [place] [address] Nov, [facility] [address] [id number] [place] [address] Nov, [facility] [address] [id number] [place] [address] 16 Dec, 2011 [facility] [id number] [place] [address] 17 Nov, 2011 [facility] [id number] [place] [address] 24 Oct, 2011 [facility] [id number] [place] [address] 14 Aug, 2011 [facility] [id number] [place] [address] 14 Aug, 2011 [facility] [id number] [place] [address] 14 Aug, 2011 [facility] [id number] [place] [address] 13 Aug, 2011 [facility] [id number] [place] [address] 13 Aug, 2011 [facility] [id number] [place] [address] Apr, [facility] [address] [id number] [place] [address] Apr, [facility] [address] [id number] [place] [address] Apr, [facility] [address] [id number] [place] [address] Mar, [facility] [address] [id number] [place] [address] Mar, [facility] [address] [id number] [place] [address] Dec, [facility] [address] [id number] [place] [address] Dec, [facility] [address] [id number] [place] [address] Dec, IMMUNIZATIONS No Known Immunizations SOCIAL HISTORY Never Assessed REASON FOR VISIT PLAN OF CARE VITAL SIGNS Height 75 in 2013-09-08 Weight 229.56 lbs 2013-09-08 Temperature 97.6 degrees Fahrenheit 2013-09-08 Heart Rate 74 bpm 2013-09-08 Respiratory Rate 20 2013-09-08 Blood pressure systolic 134 mmHg 2013-09-08 Blood pressure diastolic 74 mmHg 2013-09-08 MEDICATIONS Unknown Medications RESULTS No Results PROCEDURES Procedure Date Ordered Result Body Site GLYCATED HEMOGLOBIN TEST September 08, 2013 MICROALBUMIN, SEMIQUANT September 08, 2013 MICROALBUMIN, QUANTITATIVE September 08, 2013 INSTRUCTIONS MEDICATIONS ADMINISTERED No Known Medications [...]
--- OUTSIDE RECORDS SUMMARY | 2019-06-21 16:28 | XMS REPORT ---
Author Author Nick ABDI Organization [facility] Address [address] [place] [address] Care Team Providers Care Fishing Hand Name Role Phone ELVIN ABDI Unavailable PROBLEMS Type Condition ICD9-CM Code FUI96-VY Code Onset Dates Condition S tatus SNOMED Code Problem Left leg claudication I73.9 Active 985872922 Problem Hyperlipidemia E78.5 Active 56899 004 Problem Impaired circulation I99.9 Active 34177308 Problem DM neuro manif type II E11.49 Active 00266004 Problem Reactive depression F32.9 Active 37137793 Problem Cigarette nicotine dependence with nicotine-induced di sorder F17.219 Active 85332414 Problem Arthritis M19.90 Active 6982321 Problem Hammertoe M20.40 Active 412175142 Problem 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 Active 95390 005 Problem Carotid artery disease I77.9 Active 211800855 Problem Hypercholesteremia E78.00 Active 2 42168347 Problem Vitamin D deficiency E55.9 Active 28827329 Problem Type 2 diabetes mellitus E11.9 Activ e 24284580 Problem Restless leg syndrome G25.81 Active 64054808 Problem Essential (primary) hypertension I10 Active 86179787 Problem Tobacco abuse Z72.0 Active 776210 05 Problem PAD (peripheral artery disease) I73.9 Active 680005306 Problem Onychomycosis B35.1 Active 392826 008 Problem Panlobular emphysema J43.1 Active 2952262 ALLERGIES No Information ENCOUNTERS Encounter Location Date Diagnosis [address] [place] [address] 09 May, 2019 [address] [place] [address] Jan, Diarrhea, unspecified type R 19.7 [address] [place] [address] Jan, Type 2 diabetes mellitus E11 .9 ; Essential (primary) hypertension I10 ; Restless leg syndrome G25.81 ; Vitamin D deficiency E55.9 ; Diarrhea, unspecified type R19.7 and Encounter for immunization Z23 [facility] [address] [place] [address] Jan, Type 2 diabetes mellitus E11 .[address] [place] [address] Oct, Type 2 diabetes mellitus E11 .9 and Essential (primary) hypertension I10 [facility] [id number] [place] [address] Oct, Onychomycosis B35.1 ; Diabetes mellitus E11.9 and Impaired circulation I99.[address] [place] [address] Oct, Diabetes mellitus E11.9 and Hypertension I10 [address] [place] [address] Oct, Hypertension I10 [address] [place] [address] Sep, [facility] [id number] [place] [address] Sep, [address] [place] [address] Aug, [facility] [id number] [place] [address] Aug, Panlobular emphysema J43.[address] [place] [address] Aug, Panlobular emphysema J43.[address] [place] [address] Aug, Panlobular emphysema J43.[address] [place] [address] Jul, Encounter for screening for malignant neoplasm of colon Z12.11 ; CAD (coronary artery disease) I25.10 ; Cigarette nicotine dependence with nicotine-induced disorder F17.219 ; Essential (primary) hypertension I10 ; Panlobular emphysema J43.1 and DM neuro manif type II E11.[address] [place] [address] Jul, Type 2 diabetes mellitus E11 .[address] [place] [address] Jul, [facility] [id number] [place] [address] Jul, Onychomycosis B35.1 and DM neuro manif t ype II E11.49 [facility] [id number] [place] [address] June, Diabetes mellitus E11.[address] [place] [address] May, [address] [place] [address] Apr, Type 2 diabetes mellitus E11 .9 [...] M20.40 ; Arthritis M19.90 and Hypoglycemia E16.2 [facility] [id number] [place] [address] Apr, Diabetes mellitus E11.9 [facility] [address] [address] Apr, Onychomycosis B35.1 ; Impaired circulati on I99.9 and DM neuro manif type II E11.49 [address] [address] Jan, Diabetes mellitus E11.9 ; Hypertension I 10 and Encounter for immunization Z23 [facility] [address] [address] Jan, Diabetes mellitus E11.9 [address] [address] Jan, [address] [address] Jan, [address] [address] Oct, Onychomycosis B35.1 ; DM neuro manif typ e II E11.49 and Impaired circulation I99.9 [address] [address] Sep, [address] [address] Aug, Hypoglycemia E16.2 [address] [address] Aug, [address] [address] Jul, [address] [address] Jul, Elevated blood sugar R73.9 and Neck pain M54.2 [address] [address] Jul, [address] [address] Jul, Onychomycosis B35.1 and DM neuro manif t ype II E11.49 [address] [address] Jul, [address] [address] June, Hyperlipidemia E78.5 [address] [address] June, Diabetes mellitus E11.9 ; CAD (coronary artery disease) I25.10 ; Arthritis M19.90 and Hyperlipidemia E78.5 [address] [address] June, [address] [address] Apr, Onychomycosis B35.1 ; DM neuro manif typ e II E11.49 and Hammertoe M20.[address] [address] Apr, Diabetes mellitus E11.9 and Hypertension I10 [address] [address] Mar, Hypertension I10 and Diabetes mellitus E 11.9 [address] [address] Mar, Hypertension I10 and Diabetes mellitus E 11.9 [address] [address] Jan, Onychomycosis B35.1 and DM neuro manif t ype II E11.49 [address] [address] Dec, [address] [address] Dec, [address] [address] Dec, Hypertension I10 and Diabetes mellitus E 11.9 [address] [address] Oct, Encounter for immunization Z23 ; Diabete s mellitus E11.9 ; Hypertension I10 and Cigarette nicotine dependence with nicotine-induced disorder F17.219 [address] [address] Oct, Diabetes mellitus E11.9 [address] [address] Oct, Onychomycosis B35.1 ; DM neuro manif typ e II E11.49 and Hammertoe M20.40 [address] [address] Jul, Diabetes mellitus E11.9 [address] [address] Jul, Onychomycosis B35.1 ; Hammertoe M20.40 a nd DM neuro manif type II E11.49 [address] [address] May, Diabetes mellitus E11.9 [address] [address] May, Diabetes mellitus E11.9 [address] [address] Nov, Diabetes mellitus E11.9 ; Hypertension I 10 ; Reactive depression F32.9 and Encounter for immunization Z23 [address] [address] Oct, Ulcer of other part of foot L97.509 [address] [address] Sep, Onychomycosis B35.1 ; Ulcer of heel, lef t, with unspecified severity L97.429 and DM neuro manif type II E11.49 [address] [address] Sep, [address] [address] Sep, Ulcer of heel, left, with unspecified se verity L97.[address] [address] Aug, Onychomycosis B35.1 ; Ulcer of heel, lef t, with unspecified severity L97.429 and DM neuro manif type II E11.[address] [address] Jul, Diabetes mellitus E11.9 ; Hypertension I 10 ; Cigarette nicotine dependence with nicotine-induced disorder F17.219 and CAD (coronary artery disease) I25.[address] [address] Jul, Left leg claudication I73.9 ; Right leg claudication I73.9 ; CAD (coronary artery disease) I25.10 ; Hypertension I10 and Hyperlipidemia E78.[address] [address] Jul, Ulcer of heel, left, with unspecified se verity L97.429 and DM neuro manif type II E11.[address] [address] June, Ulcer of heel, left, with unspecified se verity L97.429 and Ulcer of other part of foot L97.[address] [address] June, Ulcer of heel, left, with unspecified se verity L97.429 and Ulcer of foot, left, with unspecified severity L97.[address] [address] May, [address] [address] May, [address] [address] Apr, DM neuro manif type II E11.49 ; Hyperten yue I10 and Sleep apnea in adult G47.[address] [address] Apr, [address] [address] Apr, Ulcer of foot L97.509 and DM neuro manif type II E11.49 [address] [address] Apr, Ulcer of other part of foot L97.509 and DM neuro manif type II E11.[address] [address] Apr, Onychomycosis B35.1 ; Ingrown toenail L6 0.0 ; Impaired circulation I99.9 and DM neuro manif type II E11.[address] [address] Mar, Ulcer of other part of foot L97.509 ; On ychomycosis B35.1 and Diabetes mellitus E11.[address] [address] Dec, Encounter for immunization Z23 ; Hyperte nsion I10 and Diabetes mellitus E11.[address] [address] Dec, [address] [address] Dec, CAD (coronary artery disease) I25.10 ; H ypertension I10 ; Left leg claudication I73.9 and Hyperlipidemia E78.[address] [address] Nov, Onychomycosis B35.1 and Hammertoe M20.[address] [address] Sep, Coronary atherosclerosis of unspecified type of vessel, asa'carsarmiut or graft 414.[address] [address] Sep, Coronary atherosclerosis of unspecified type of vessel, asa'carsarmiut or graft 414.00 and Diabetes 250.00 [facility] [address] [id number] [place] [address] 14 May, 2014 [facility] [address] [id number] [place] [address] May, [facility] [address] [id number] [place] [address] Apr, [facility] [id number] [place] [address] Apr, [facility] [address] [id number] [place] [address] Apr, [facility] [id number] [place] [address] Apr, [facility] [address] [id number] [place] [address] Mar, [facility] [id number] [place] [address] Mar, [facility] [address] [id number] [place] [address] Jan, [facility] [id number] [place] [address] Jan, [facility] [id number] [place] [address] Jan, [facility] [id number] [place] [address] Jan, [facility] [address] [id number] [place] [address] Jan, [facility] [id number] [place] [address] Jan, [facility] [id number] [place] [address] Jan, [facility] [id number] [place] [address] Jan, [facility] [address] [id number] [place] [address] Jan, [facility] [address] [facility] [id number] [place] [address] Jan, [facility] [address] [facility] [id number] [place] [address] Jan, [facility] [address] [id number] [place] [address] Nov, [facility] [address] [id number] [place] [address] Nov, [facility] [address] [id number] [place] [address] Nov, [facility] [address] [id number] [place] [address] Nov, [facility] [address] [id number] [place] [address] Nov, [facility] [address] [id number] [place] [address] Nov, [facility] [address] [id number] [place] [address] Oct, [facility] [address] [id number] [place] [address] Oct, [facility] [address] [id number] [place] [address] Oct, [facility] [address] [id number] [place] [address] Oct, [facility] [address] [id number] [place] [address] Oct, [facility] [address] [id number] [place] [address] Oct, [facility] [address] [id number] [place] [address] Sep, [facility] [address] [id number] [place] [address] Sep, [facility] [address] [facility] [id number] [facility] [place] [address] Sep, [facility] [address] [facility] [id number] [place] [address] Sep, [facility] [address] [facility] [id number] [place] [address] Sep, [facility] [address] [id number] [place] [address] Sep, [facility] [address] [facility] [id number] [place] [address] Aug, [facility] [address] [facility] [id number] [place] [address] Aug, [facility] [address] [id number] [place] [address] Aug, [facility] [address] [id number] [place] [address] Aug, [facility] [address] [id number] [place] [address] Aug, [facility] [address] [facility] [id number] [place] [address] Aug, [facility] [address] [id number] [place] [address] Jul, [facility] [address] [id number] [place] [address] Jul, [facility] [address] [id number] [place] [address] Jul, [facility] [address] [facility] [id number] [place] [address] Jul, [facility] [address] [id number] [place] [address] June, [facility] [address] [facility] [id number] [place] [address] June, [facility] [address] [id number] [place] [address] June, [facility] [address] [id number] [place] [address] June, [facility] [address] [id number] [place] [address] May, [facility] [address] [id number] [place] [address] May, [facility] [address] [id number] [place] [address] May, [facility] [address] [facility] [id number] [place] [address] May, [facility] [address] [id number] [place] [address] May, [facility] [address] [id number] [place] [address] May, [facility] [address] [id number] [place] [address] Apr, [facility] [address] [id number] [place] [address] Apr, [facility] [address] [id number] [place] [address] Apr, [facility] [address] [id number] [place] [address] Apr, [facility] [address] [id number] [place] [address] Apr, [facility] [address] [id number] [place] [address] Apr, [facility] [address] [id number] [place] [address] Apr, [facility] [address] [id number] [place] [address] Jan, [facility] [address] [id number] [place] [address] Jan, [facility] [address] [id number] [place] [address] Jan, [facility] [address] [id number] [place] [address] Jan, [facility] [address] [id number] [place] [address] Jan, [facility] [address] [id number] [place] [address] Jan, [facility] [address] [id number] [place] [address] Dec, [facility] [address] [id number] [place] [address] Dec, [facility] [id number] [place] [address] Dec, [facility] [id number] [place] [address] Dec, [facility] [id number] [place] [address] Dec, [facility] [address] [id number] [place] [address] Dec, [facility] [id number] [place] [address] Nov, [facility] [address] [id number] [place] [address] Oct, [facility] [id number] [place] [address] Oct, [facility] [address] [id number] [place] [address] Aug, [facility] [id number] [place] [address] Aug, [facility] [address] [id number] [place] [address] Jul, [facility] [address] [id number] [place] [address] June, [facility] [address] [id number] [place] [address] Apr, [facility] [address] [id number] [place] [address] Apr, [facility] [address] [id number] [place] [address] Apr, [facility] [address] [id number] [place] [address] Apr, [facility] [address] [id number] [place] [address] Mar, [facility] [address] [id number] [place] [address] Jan, [facility] [address] [id number] [place] [address] Jan, [facility] [id number] [place] [address] Jan, [facility] [address] [id number] [place] [address] Jan, [facility] [address] [id number] [place] [address] Jan, [facility] [address] [id number] [place] [address] Jan, [facility] [address] [id number] [place] [address] Jan, [facility] [address] [id number] [place] [address] Jan, [facility] [address] [id number] [place] [address] Nov, [facility] [address] [id number] [place] [address] Nov, [facility] [address] [id number] [place] [address] Nov, [facility] [address] [id number] [place] [address] 16 Dec, 2011 [facility] [id number] [place] [address] 17 Nov, 2011 [facility] [id number] [place] [address] 24 Oct, 2011 [facility] [id number] [place] [address] 14 Aug, 2011 [facility] [id number] [place] [address] 14 Aug, 2011 [facility] [id number] [place] [address] 14 Aug, 2011 [facility] [id number] [place] [address] 13 Aug, 2011 [facility] [id number] [place] [address] Jul, [facility] [id number] [place] [address] Apr, [facility] [id number] [place] [address] Apr, [facility] [id number] [place] [address] Apr, [facility] [id number] [place] [address] Mar, [facility] [id number] [place] [address] Mar, [facility] [id number] [place] [address] Dec, [facility] [id number] [place] [address] Dec, [facility] [id number] [place] [address] Dec, IMMUNIZATIONS No Known Immunizations SOCIAL HISTORY [...]
--- OUTSIDE RECORDS SUMMARY | 2019-06-21 16:28 | XMS REPORT ---
Author Author Nick ABDI Organization [facility] Address [address] [place] [address] Care Team Providers Care Disability Liaison Officer Name Role Phone ELVIN ABDI Unavailable PROBLEMS Type Condition ICD9-CM Code XSL37-VG Code Onset Dates Condition S tatus SNOMED Code Problem Hyperlipidemia E78.5 Active 38136 004 Problem Left leg claudication I73.9 Active 403116922 Problem DM neuro manif type II E11.49 Active 28052246 Problem Impaired circulation I99.9 Active 46238196 Problem Reactive depression F32.9 Active 92144162 Problem Cigarette nicotine dependence with nicotine-induced di sorder F17.219 Active 03477574 Problem Arthritis M19.90 Active 0176642 Problem Hammertoe M20.40 Active 297104925 Problem Hypercholesteremia E78.00 Active 2 24712347 Problem Type 2 diabetes mellitus E11.9 Activ e 96762995 Problem Essential (primary) hypertension I10 Active 08820031 Problem Vitamin D deficiency E55.9 Active 86451375 Problem Carotid artery disease I77.9 Active 525915415 Problem Restless leg syndrome G25.81 Active 22708908 Problem 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 Active 82670 005 Problem Tobacco abuse Z72.0 Active 734339 05 Problem PAD (peripheral artery disease) I73.9 Active 950723752 Problem Onychomycosis B35.1 Active 941854 008 Problem Panlobular emphysema J43.1 Active 0320436 ALLERGIES No Information ENCOUNTERS Encounter Location Date Diagnosis [address] [place] [address] 09 May, 2019 [address] [place] [address] Jan, Diarrhea, unspecified type R 19.7 [address] [place] [address] Jan, Type 2 diabetes mellitus E11 .9 ; Essential (primary) hypertension I10 ; Restless leg syndrome G25.81 ; Vitamin D deficiency E55.9 ; Diarrhea, unspecified type R19.7 and Encounter for immunization Z23 [facility] [address] [place] [address] Jan, Type 2 diabetes mellitus E11 .[address] [place] [address] Oct, Type 2 diabetes mellitus E11 .9 and Essential (primary) hypertension I10 [facility] [id number] [place] [address] Oct, Onychomycosis B35.1 ; Diabetes mellitus E11.9 and Impaired circulation I99.[address] [place] [address] Oct, Diabetes mellitus E11.9 and Hypertension I10 [address] [place] [address] Oct, Hypertension I10 [address] [place] [address] Sep, [facility] [id number] [place] [address] Sep, [address] [place] [address] Aug, [facility] [id number] [place] [address] Aug, Panlobular emphysema J43.[address] [place] [address] Aug, Panlobular emphysema J43.[address] [place] [address] Aug, Panlobular emphysema J43.[address] [place] [address] Jul, Encounter for screening for malignant neoplasm of colon Z12.11 ; CAD (coronary artery disease) I25.10 ; Cigarette nicotine dependence with nicotine-induced disorder F17.219 ; Essential (primary) hypertension I10 ; Panlobular emphysema J43.1 and DM neuro manif type II E11.49 [address] [place] [address] Jul, Type 2 diabetes mellitus E11 .[address] [place] [address] Jul, [facility] [id number] [place] [address] Jul, Onychomycosis B35.1 and DM neuro manif t ype II E11.49 [facility] [id number] [place] [address] June, Diabetes mellitus E11.9 [address] [place] [address] May, [address] [place] [address] Apr, Type 2 diabetes mellitus E11 .9 [...] M20.40 ; Arthritis M19.90 and Hypoglycemia E16.2 [facility] [id number] [place] [address] Apr, Diabetes mellitus E11.9 [facility] [address] [address] Apr, Onychomycosis B35.1 ; Impaired circulati on I99.9 and DM neuro manif type II E11.49 [address] [address] Jan, Diabetes mellitus E11.9 ; Hypertension I 10 and Encounter for immunization Z23 [facility] [address] [address] Jan, Diabetes mellitus E11.9 [address] [address] Jan, [address] [address] Jan, [address] [address] Oct, Onychomycosis B35.1 ; DM neuro manif typ e II E11.49 and Impaired circulation I99.9 [address] [address] Sep, [address] [address] Aug, Hypoglycemia E16.2 [address] [address] Aug, [address] [address] Jul, [address] [address] Jul, Elevated blood sugar R73.9 and Neck pain M54.2 [address] [address] Jul, [address] [address] Jul, Onychomycosis B35.1 and DM neuro manif t ype II E11.49 [address] [address] Jul, [address] [address] June, Hyperlipidemia E78.5 [address] [address] June, Diabetes mellitus E11.9 ; CAD (coronary artery disease) I25.10 ; Arthritis M19.90 and Hyperlipidemia E78.5 [address] [address] June, [address] [address] Apr, Onychomycosis B35.1 ; DM neuro manif typ e II E11.49 and Hammertoe M20.[address] [address] Apr, Diabetes mellitus E11.9 and Hypertension I10 [address] [address] Mar, Hypertension I10 and Diabetes mellitus E 11.9 [address] [address] Mar, Hypertension I10 and Diabetes mellitus E 11.9 [address] [address] Jan, Onychomycosis B35.1 and DM neuro manif t ype II E11.49 [address] [address] Dec, [address] [address] Dec, [address] [address] Dec, Hypertension I10 and Diabetes mellitus E 11.9 [address] [address] Oct, Encounter for immunization Z23 ; Diabete s mellitus E11.9 ; Hypertension I10 and Cigarette nicotine dependence with nicotine-induced disorder F17.219 [address] [address] Oct, Diabetes mellitus E11.9 [address] [address] Oct, Onychomycosis B35.1 ; DM neuro manif typ e II E11.49 and Hammertoe M20.40 [address] [address] Jul, Diabetes mellitus E11.9 [address] [address] Jul, Onychomycosis B35.1 ; Hammertoe M20.40 a nd DM neuro manif type II E11.49 [address] [address] May, Diabetes mellitus E11.9 [address] [address] May, Diabetes mellitus E11.9 [address] [address] Nov, Diabetes mellitus E11.9 ; Hypertension I 10 ; Reactive depression F32.9 and Encounter for immunization Z23 [address] [address] Oct, Ulcer of other part of foot L97.509 [address] [address] Sep, Onychomycosis B35.1 ; Ulcer of heel, lef t, with unspecified severity L97.429 and DM neuro manif type II E11.49 [address] [address] Sep, [address] [address] Sep, Ulcer of heel, left, with unspecified se verity L97.[address] [address] Aug, Onychomycosis B35.1 ; Ulcer of heel, lef t, with unspecified severity L97.429 and DM neuro manif type II E11.[address] [address] Jul, Diabetes mellitus E11.9 ; Hypertension I 10 ; Cigarette nicotine dependence with nicotine-induced disorder F17.219 and CAD (coronary artery disease) I25.[address] [address] Jul, Left leg claudication I73.9 ; Right leg claudication I73.9 ; CAD (coronary artery disease) I25.10 ; Hypertension I10 and Hyperlipidemia E78.[address] [address] Jul, Ulcer of heel, left, with unspecified se verity L97.429 and DM neuro manif type II E11.[address] [address] June, Ulcer of heel, left, with unspecified se verity L97.429 and Ulcer of other part of foot L97.[address] [address] June, Ulcer of heel, left, with unspecified se verity L97.429 and Ulcer of foot, left, with unspecified severity L97.[address] [address] May, [address] [address] May, [address] [address] Apr, DM neuro manif type II E11.49 ; Hyperten yue I10 and Sleep apnea in adult G47.[address] [address] Apr, [address] [address] Apr, Ulcer of foot L97.509 and DM neuro manif type II E11.49 [address] [address] Apr, Ulcer of other part of foot L97.509 and DM neuro manif type II E11.[address] [address] Apr, Onychomycosis B35.1 ; Ingrown toenail L6 0.0 ; Impaired circulation I99.9 and DM neuro manif type II E11.[address] [address] Mar, Ulcer of other part of foot L97.509 ; On ychomycosis B35.1 and Diabetes mellitus E11.[address] [address] Dec, Encounter for immunization Z23 ; Hyperte nsion I10 and Diabetes mellitus E11.[address] [address] Dec, [address] [address] Dec, CAD (coronary artery disease) I25.10 ; H ypertension I10 ; Left leg claudication I73.9 and Hyperlipidemia E78.[address] [address] Nov, Onychomycosis B35.1 and Hammertoe M20.[address] [address] Sep, Coronary atherosclerosis of unspecified type of vessel, sycuan or graft 414.[address] [address] Sep, Coronary atherosclerosis of unspecified type of vessel, sycuan or graft 414.00 and Diabetes 250.00 [facility] [address] [id number] [place] [address] 14 May, 2014 [facility] [address] [id number] [place] [address] May, [facility] [address] [id number] [place] [address] Apr, [facility] [id number] [place] [address] Apr, [facility] [address] [id number] [place] [address] Apr, [facility] [id number] [place] [address] Apr, [facility] [address] [id number] [place] [address] Mar, [facility] [id number] [place] [address] Mar, [facility] [address] [id number] [place] [address] Jan, [facility] [id number] [place] [address] Jan, [facility] [id number] [place] [address] Jan, [facility] [id number] [place] [address] Jan, [facility] [address] [id number] [place] [address] Jan, [facility] [id number] [place] [address] Jan, [facility] [id number] [place] [address] Jan, [facility] [id number] [place] [address] Jan, [facility] [address] [id number] [place] [address] Jan, [facility] [address] [facility] [id number] [place] [address] Jan, [facility] [address] [facility] [id number] [place] [address] Jan, [facility] [address] [id number] [place] [address] Nov, [facility] [address] [id number] [place] [address] Nov, [facility] [address] [id number] [place] [address] Nov, [facility] [address] [id number] [place] [address] Nov, [facility] [address] [id number] [place] [address] Nov, [facility] [address] [id number] [place] [address] Nov, [facility] [address] [id number] [place] [address] Oct, [facility] [address] [id number] [place] [address] Oct, [facility] [address] [id number] [place] [address] Oct, [facility] [address] [id number] [place] [address] Oct, [facility] [address] [id number] [place] [address] Oct, [facility] [address] [id number] [place] [address] Oct, [facility] [address] [id number] [place] [address] Sep, [facility] [address] [id number] [place] [address] Sep, [facility] [address] [facility] [id number] [facility] [place] [address] Sep, [facility] [address] [facility] [id number] [place] [address] Sep, [facility] [address] [facility] [id number] [place] [address] Sep, [facility] [address] [id number] [place] [address] Sep, [facility] [address] [facility] [id number] [place] [address] Aug, [facility] [address] [facility] [id number] [place] [address] Aug, [facility] [address] [id number] [place] [address] Aug, [facility] [address] [id number] [place] [address] Aug, [facility] [address] [id number] [place] [address] Aug, [facility] [address] [facility] [id number] [place] [address] Aug, [facility] [address] [id number] [place] [address] Jul, [facility] [address] [id number] [place] [address] Jul, [facility] [address] [id number] [place] [address] Jul, [facility] [address] [facility] [id number] [place] [address] Jul, [facility] [address] [id number] [place] [address] June, [facility] [address] [facility] [id number] [place] [address] June, [facility] [address] [id number] [place] [address] June, [facility] [address] [id number] [place] [address] June, [facility] [address] [id number] [place] [address] May, [facility] [address] [id number] [place] [address] May, [facility] [address] [id number] [place] [address] May, [facility] [address] [facility] [id number] [place] [address] May, [facility] [address] [id number] [place] [address] May, [facility] [address] [id number] [place] [address] May, [facility] [address] [id number] [place] [address] Apr, [facility] [address] [id number] [place] [address] Apr, [facility] [address] [id number] [place] [address] Apr, [facility] [address] [id number] [place] [address] Apr, [facility] [address] [id number] [place] [address] Apr, [facility] [address] [id number] [place] [address] Apr, [facility] [address] [id number] [place] [address] Apr, [facility] [address] [id number] [place] [address] Jan, [facility] [address] [id number] [place] [address] Jan, [facility] [address] [id number] [place] [address] Jan, [facility] [address] [id number] [place] [address] Jan, [facility] [address] [id number] [place] [address] Jan, [facility] [address] [id number] [place] [address] Jan, [facility] [address] [id number] [place] [address] Dec, [facility] [address] [id number] [place] [address] Dec, [facility] [id number] [place] [address] Dec, [facility] [id number] [place] [address] Dec, [facility] [id number] [place] [address] Dec, [facility] [address] [id number] [place] [address] Dec, [facility] [id number] [place] [address] Nov, [facility] [address] [id number] [place] [address] Oct, [facility] [id number] [place] [address] Oct, [facility] [address] [id number] [place] [address] Aug, [facility] [id number] [place] [address] Aug, [facility] [address] [id number] [place] [address] Jul, [facility] [address] [id number] [place] [address] June, [facility] [address] [id number] [place] [address] Apr, [facility] [address] [id number] [place] [address] Apr, [facility] [address] [id number] [place] [address] Apr, [facility] [address] [id number] [place] [address] Apr, [facility] [address] [id number] [place] [address] Mar, [facility] [address] [id number] [place] [address] Jan, [facility] [address] [id number] [place] [address] Jan, [facility] [id number] [place] [address] Jan, [facility] [address] [id number] [place] [address] Jan, [facility] [address] [id number] [place] [address] Jan, [facility] [address] [id number] [place] [address] Jan, [facility] [address] [id number] [place] [address] Jan, [facility] [address] [id number] [place] [address] Jan, [facility] [address] [id number] [place] [address] Nov, [facility] [address] [id number] [place] [address] Nov, [facility] [address] [id number] [place] [address] Nov, [facility] [address] [id number] [place] [address] 16 Dec, 2011 [facility] [id number] [place] [address] 17 Nov, 2011 [facility] [id number] [place] [address] 24 Oct, 2011 [facility] [id number] [place] [address] 14 Aug, 2011 [facility] [id number] [place] [address] 14 Aug, 2011 [facility] [id number] [place] [address] 14 Aug, 2011 [facility] [id number] [place] [address] 13 Aug, 2011 [facility] [id number] [place] [address] Jul, [facility] [id number] [place] [address] Apr, [facility] [id number] [place] [address] Apr, [facility] [id number] [place] [address] Apr, [facility] [id number] [place] [address] Mar, [facility] [id number] [place] [address] Mar, [facility] [id number] [place] [address] Dec, [facility] [id number] [place] [address] Dec, [facility] [id number] [place] [address] Dec, IMMUNIZATIONS No Known Immunizations SOCIAL HISTORY [...]
--- OUTSIDE RECORDS SUMMARY | 2019-06-21 16:29 | XMS REPORT ---
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 Name Role Phone ELVIN ABDI Unavailable PROBLEMS Type Condition ICD9-CM Code [id number] Code Onset Dates Condition S tatus SNOMED Code Problem Hyperlipidemia E78.5 Active 22307 004 Problem Left leg claudication I73.9 Active 194478402 Problem DM neuro manif type II E11.49 Active 78707994 Problem Impaired circulation I99.9 Active 59727836 Problem Reactive depression F32.9 Active 80248378 Problem Cigarette nicotine dependence with nicotine-induced di sorder F17.219 Active 56384391 Problem 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 Active 55876 005 Problem Carotid artery disease I77.9 Active 783065879 Problem Hypercholesteremia E78.00 Active 2 50436467 Problem Onychomycosis B35.1 Active 579703 008 Problem Arthritis M19.90 Active 8569201 Problem Panlobular emphysema J43.1 Active 6168981 Problem Hammertoe M20.40 Active 990405532 Problem Type 2 diabetes mellitus E11.9 Activ e 72697180 Problem Essential (primary) hypertension I10 Active 74434778 Problem Tobacco abuse Z72.0 Active 542700 05 Problem PAD (peripheral artery disease) I73.9 Active [id number] ALLERGIES No Information ENCOUNTERS Encounter Location Date Diagnosis [facility] [address] [place] [address] Jan, [facility] [address] [facility] [id number] [address] [place] [address] Jan, [facility] [address] [place] [address] Oct, Type 2 diabetes mellitus E11.9 and Essen tial (primary) hypertension I10 [facility] [address] [id number] [address] [place] [address] Oct, Onychomycosis B35.1 ; Diabet es mellitus E11.9 and Impaired circulation I99.[address] [address] Oct, Diabetes mellitus E11.9 and Hypertension I10 [address] [address] Oct, Hypertension I10 [address] [address] Sep, [facility] [address] [id number] [address] [place] [address] Sep, [address] [address] Aug, [facility] [address] [id number] [address] [place] [address] Aug, Panlobular emphysema J43.[address] [address] Aug, Panlobular emphysema J43.[address] [address] Aug, Panlobular emphysema J43.[address] [address] Jul, Encounter for screening for malignant ne oplasm of colon Z12.11 ; CAD (coronary artery disease) I25.10 ; Cigarette nicotine dependence with nicotine- induced disorder F17.219 ; Essential (primary) hypertension I10 ; Panlobular emphysema J43.1 and DM neuro manif type II E11.[address] [address] Jul, Type 2 diabetes mellitus E11.[address] [address] Jul, [facility] [address] [id number] [address] [place] [address] Jul, Onychomycosis B35.1 and DM n euro manif type II E11.49 [place] [address] [facility] [id number] [address] [place] [address] June, Diabetes mellitus E11.[address] [address] May, [address] [address] Apr, Type 2 diabetes mellitus E11.9 ; Hyperch olesteremia E78.00 ; Essential (primary) hypertension I10 ; [...] M20.40 ; Arthritis M19.90 and Hypoglycemia E16.2 [place] [address] [facility] [id number] [address] [place] [address] Apr, Diabetes mellitus E11.9 [place] [address] [facility] [id number] [address] [place] [address] Apr, Onychomycosis B35.1 ; Impair ed circulation I99.9 and DM neuro manif type II E11.49 [place] [address] [facility] [id number] [address] [place] [address] Jan, Diabetes mellitus E11.9 ; Hy pertension I10 and Encounter for immunization Z23 [place] [address] [facility] [id number] [address] [place] [address] Jan, Diabetes mellitus E11.9 [place] [address] [facility] [id number] [address] [place] [address] Jan, [place] [address] [facility] [id number] [address] [place] [address] Jan, [place] [address] [facility] [id number] [address] [place] [address] Oct, Onychomycosis B35.1 ; DM chuck ro manif type II E11.49 and Impaired circulation I99.9 [facility] [address] [id number] [address] [place] [address] Sep, [facility] [address] [id number] [address] [place] [address] Aug, Hypoglycemia E16.2 [facility] [address] [id number] [address] [place] [address] Aug, [facility] [address] [id number] [address] [place] [address] Jul, [facility] [address] [place] [id number] [address] [place] [address] Jul, Elevated blood sugar R73.9 a nd Neck pain M54.2 [place] [address] [place] [id number] [address] [place] [address] Jul, [facility] [address] [place] [id number] [address] [place] [address] Jul, Onychomycosis B35.1 and DM n euro manif type II E11.49 [facility] [address] [id number] [address] [place] [address] Jul, [place] [address] [place] [id number] [address] [place] [address] June, Hyperlipidemia E78.5 [facility] [address] [id number] [address] [place] [address] June, Diabetes mellitus E11.9 ; CA D (coronary artery disease) I25.10 ; Arthritis M19.90 and Hyperlipidemia E78.5 [facility] [address] [id number] [address] [place] [address] June, [facility] [address] [place] [id number] [address] [place] [address] Apr, Onychomycosis B35.1 ; DM chuck ro manif type II E11.49 and Hammertoe M20.40 [place] [address] [facility] [id number] [address] [place] [address] Apr, Diabetes mellitus E11.9 and Hypertension I10 [place] [address] [place] [id number] [address] [place] [address] Mar, Hypertension I10 and Diabete s mellitus E11.9 [place] [address] [id number] [address] [place] [address] Mar, Hypertension I10 and Diabete s mellitus E11.9 [place] [address] [place] [id number] [address] [place] [address] Jan, Onychomycosis B35.1 and DM n euro manif type II E11.49 [place] [address] [place] [id number] [address] [place] [address] Dec, [place] [address] [place] [id number] [address] [place] [address] Dec, [place] [address] [place] [id number] [address] [place] [address] Dec, Hypertension I10 and Diabete s mellitus E11.9 [place] [address] [place] [id number] [address] [place] [address] Oct, Encounter for immunization Z 23 ; Diabetes mellitus E11.9 ; Hypertension I10 and Cigarette nicotine dependence with nicotine-induced disorder F17.219 [place] [address] [place] [id number] [address] [place] [address] Oct, Diabetes mellitus E11.9 [place] [address] [place] [id number] [address] [place] [address] Oct, Onychomycosis B35.1 ; DM chuck ro manif type II E11.49 and Hammertoe M20.40 [place] [address] [place] [id number] [address] [place] [address] Jul, Diabetes mellitus E11.9 [place] [address] [id number] [address] [place] [address] Jul, Onychomycosis B35.1 ; Hammer toe M20.40 and DM neuro manif type II E11.49 [place] [address] [id number] [address] [place] [address] May, Diabetes mellitus E11.9 [place] [address] [place] [id number] [place] [address] May, Diabetes mellitus E11.9 [place] [address] [address] Nov, Diabetes mellitus E11.9 ; Hy pertension I10 ; Reactive depression F32.9 and Encounter for immunization Z23 [place] [address] [place] [id number] [place] [address] Oct, Ulcer of other part of foot L97.509 [place] [address] [address] Sep, Onychomycosis B35.1 ; Ulcer of heel, left, with unspecified severity L97.429 and DM neuro manif type II E11.49 [place] [id number] [place] [address] Sep, [place] [address] [place] [id number] [place] [address] Sep, Ulcer of heel, left, with un specified severity L97.429 [place] [address] [place] [id number] [address] [place] [address] Aug, Onychomycosis B35.1 ; Ulcer of heel, left, with unspecified severity L97.429 and DM neuro manif type II E11.49 [place] [address] [place] [id number] [address] [place] [address] Jul, Diabetes mellitus E11.9 ; Hy pertension I10 ; Cigarette nicotine dependence with nicotine-induced disorder F17.219 and CAD (coronary artery disease) I25.10 [facility] [address] [id number] [address] [place] [address] Jul, Left leg claudication I73.9 ; Right leg claudication I73.9 ; CAD (coronary artery disease) I25.10 ; Hypertension I10 and Hyperlipidemia E78.5 [facility] [address] [id number] [address] [place] [address] Jul, Ulcer of heel, left, with un specified severity L97.429 and DM neuro manif type II E11.49 [facility] [address] [id number] [address] [place] [address] June, Ulcer of heel, left, with un specified severity L97.429 and Ulcer of other part of foot L97.509 [place] [address] [facility] [id number] [address] [place] [address] June, Ulcer of heel, left, with un specified severity L97.429 and Ulcer of foot, left, with unspecified severity L97.529 [place] [address] [facility] [id number] [address] [place] [address] May, [facility] [address] [id number] [address] [place] [address] May, [facility] [address] [id number] [address] [place] [address] Apr, DM neuro manif type II E11.4 9 ; Hypertension I10 and Sleep apnea in adult G47.33 [facility] [address] [id number] [address] [place] [address] Apr, [facility] [address] [id number] [address] [place] [address] Apr, Ulcer of foot L97.509 and DM neuro manif type II E11.49 [facility] [address] [facility] [id number] [address] [place] [address] Apr, Ulcer of other part of foot L97.509 and DM neuro manif type II E11.49 [facility] [address] [address] 12 Apr, 2015 Onychomycosis B35.1 ; Ingrow n toenail L60.0 ; Impaired circulation I99.9 and DM neuro manif type II E11.[address] [address] 08 Mar, 2015 Ulcer of other part of foot L97.509 ; Onychomycosis B35.1 and Diabetes mellitus E11.[address] [address] 19 Dec, 2014 Encounter for immunization Z 23 ; Hypertension I10 and Diabetes mellitus E11.[address] [address] Dec, [address] [address] Dec, CAD (coronary artery disease ) I25.10 ; Hypertension I10 ; Left leg claudication I73.9 and Hyperlipidemia E78.[address] [address] Nov, Onychomycosis B35.1 and Vin ertoe M20.[address] [address] Sep, Coronary atherosclerosis of unspecified type of vessel, wainwright or graft 414.[address] [address] Sep, Coronary atherosclerosis of unspecified type of vessel, wainwright or graft 414.00 and Diabetes 250.[address] [address] May, [address] [address] May, [place] [address] [address] Apr, [facility] [address] [id number] [address] [place] [address], [place] [address] Apr, [facility] [address] [id number] [address] [place] [address], [place] [address] Apr, [facility] [address] [id number] [address] [place] [address], [place] [address] Apr, [facility] [address] [id number] [address] [place] [address], [place] [address] Mar, [facility] [address] [id number] [address] [place] [address], [place] [address] Mar, [facility] [address] [id number] [address] [place] [address], [place] [address] Jan, [facility] [address] [id number] [address] [place] [address], [place] [address] Jan, [facility] [address] [id number] [address] [place] [address], [place] [address] Jan, [facility] [address] [id number] [address] [place] [address], [place] [address] Jan, [facility] [address] [id number] [address] [place] [address], [place] [address] Jan, [facility] [address] [id number] [address] [place] [address], [place] [address] Jan, [facility] [address] [id number] [address] [place] [address], [place] [address] Jan, [facility] [address] [id number] [address] [place] [address], [place] [address] Jan, [facility] [address] [id number] [address] [place] [address], [place] [address] Jan, [facility] [address] [id number] [address] [place] [address], [place] [address] Jan, [facility] [address] [id number] [address] [place] [address] Jan, [facility] [address] [id number] [address] [place] [address], [place] [address] Nov, [facility] [address] [id number] [address] [place] [address], [place] [address] Nov, [facility] [address] [id number] [address] [place] [address], [place] [address] Nov, [facility] [address] [id number] [address] [place] [address], [place] [address] Nov, [facility] [address] [id number] [address] [place] [address], [place] [address] Nov, [facility] [address] [id number] [address] [place] [address], [place] [address] Nov, [facility] [address] [id number] [address] [place] [address], [place] [address] Oct, [facility] [address] [id number] [address] [place] [address], [place] [address] Oct, [facility] [address] [id number] [address] [place] [address], [place] [address] Oct, [facility] [address] [id number] [address] [place] [address], [place] [address] Oct, [facility] [address] [id number] [address] [place] [address], [place] [address] Oct, [facility] [address] [id number] [address] [place] [address], [place] [address] Oct, [facility] [address] [id number] [address] [place] [address], [place] [address] Sep, [facility] [address] [id number] [address] [place] [address], [place] [address] Sep, [facility] [address] [id number] [address] [place] [address], [place] [address] Sep, [facility] [address] [id number] [facility] [place] [address] Sep, [facility] [address] [id number] [facility] [place] [address] Sep, [facility] [address] [id number] [facility] [place] [address] Sep, [facility] [address] [id number] [address] [place] [address], [place] [address] Aug, [facility] [address] [id number] [address] [place] [address], [place] [address] Aug, [facility] [address] [id number] [address] [place] [address], [place] [address] Aug, [facility] [address] [id number] [address] [place] [address], [place] [address] Aug, [facility] [address] [id number] [address] [place] [address], [place] [address] Aug, [facility] [address] [id number] [address] [place] [address], [place] [address] Aug, [facility] [address] [id number] [address] [place] [address], [place] [address] Jul, [facility] [address] [id number] [address] [place] [address], [place] [address] Jul, [facility] [address] [id number] [address] [place] [address], [place] [address] Jul, [facility] [address] [id number] [address] [place] [address], [place] [address] Jul, [facility] [address] [id number] [address] [place] [address], [place] [address] June, [facility] [address] [id number] [address] [place] [address], [place] [address] June, [facility] [address] [id number] [address] [place] [address], [place] [address] June, [facility] [address] [id number] [address] [place] [address], [place] [address] June, [facility] [address] [id number] [address] [place] [address], [place] [address] May, [facility] [address] [id number] [address] [place] [address], [place] [address] May, [facility] [address] [id number] [address] [place] [address], [place] [address] May, [facility] [address] [id number] [address] [place] [address], [place] [address] May, [facility] [address] [id number] [address] [place] [address], [place] [address] May, [facility] [address] [id number] [address] [place] [address], [place] [address] May, [facility] [address] [id number] [address] [place] [address], [place] [address] Apr, [facility] [address] [id number] [address] [place] [address], [place] [address] Apr, [facility] [address] [id number] [address] [place] [address], [place] [address] Apr, [facility] [address] [id number] [address] [place] [address], [place] [address] Apr, [facility] [address] [id number] [address] [place] [address], [place] [address] Apr, [facility] [address] [id number] [address] [place] [address], [place] [address] Apr, [facility] [address] [id number] [address] [place] [address], [place] [address] Apr, [facility] [address] [id number] [address] [place] [address], [place] [address] Jan, [facility] [address] [id number] [address] [place] [address], [place] [address] Jan, [facility] [address] [id number] [address] [place] [address], [place] [address] Jan, [facility] [address] [id number] [address] [place] [address], [place] [address] Jan, [facility] [address] [id number] [address] [place] [address], [place] [address] Jan, [facility] [address] [id number] [address] [place] [address], [place] [address] Jan, [facility] [address] [id number] [address] [place] [address], [place] [address] Dec, [facility] [address] [id number] [address] [place] [address], [place] [address] Dec, [facility] [address] [id number] [address] [place] [address], [place] [address] Dec, [facility] [address] [id number] [address] [place] [address], [place] [address] Dec, [facility] [address] [id number] [address] [place] [address], [place] [address] Dec, [facility] [address] [id number] [address] [place] [address], [place] [address] Dec, [facility] [address] [id number] [address] [place] [address], [place] [address] Nov, [facility] [address] [id number] [address] [place] [address], [place] [address] Oct, [facility] [address] [id number] [address] [place] [address], [place] [address] Oct, [facility] [address] [id number] [address] [place] [address], [place] [address] Aug, [facility] [address] [id number] [address] [place] [address], [place] [address] Aug, [facility] [address] [id number] [address] [place] [address], [place] [address] Jul, [facility] [address] [id number] [address] [place] [address], [place] [address] June, [facility] [address] [id number] [address] [place] [address], [place] [address] Apr, [facility] [address] [id number] [address] [place] [address], [place] [address] Apr, [facility] [address] [id number] [address] [place] [address], [place] [address] Apr, [facility] [address] [id number] [address] [place] [address], [place] [address] Apr, [facility] [address] [id number] [address] [place] [address], [place] [address] Mar, [facility] [address] [id number] [address] [place] [address], [place] [address] Jan, [facility] [address] [id number] [address] [place] [address], [place] [address] Jan, [facility] [address] [id number] [address] [place] [address], [place] [address] Jan, [facility] [address] [id number] [address] [place] [address], [place] [address] Jan, [facility] [address] [id number] [address] [place] [address], [place] [address] Jan, [facility] [address] [id number] [address] [place] [address], [place] [address] Jan, [facility] [address] [id number] [address] [place] [address], [place] [address] Jan, [facility] [address] [id number] [address] [place] [address], [place] [address] Jan, [facility] [address] [id number] [address] [place] [address], [place] [address] 16 Dec, 2011 [facility] [address] [id number] [address] [place] [address], [place] [address] 16 Dec, 2011 [facility] [address] [id number] [address] [place] [address], [place] [address] 16 Dec, 2011 [facility] [address] [id number] [address] [place] [address], [place] [address] 16 Dec, 2011 [facility] [address] [id number] [address] [place] [address], [place] [address] 17 Nov, 2011 [facility] [address] [id number] [address] [place] [address], [place] [address] 24 Oct, 2011 [facility] [address] [id number] [address] [place] [address], [place] [address] 14 Aug, 2011 [facility] [address] [id number] [address] [place] [address], [place] [address] 14 Aug, 2011 [facility] [address] [id number] [address] [place] [address], [place] [address] 14 Aug, 2011 [facility] [address] [id number] [address] [place] [address], [place] [address] 13 Aug, 2011 [facility] [address] [id number] [address] [place] [address], [place] [address] 13 Aug, 2011 [facility] [address] [id number] [address] [place] [address], [place] [address] 20 May, 2011 [facility] [address] [id number] [address] [place] [address], [place] [address] 16 Apr, 2011 [facility] [address] [id number] [address] [place] [address], [place] [address] 16 Apr, 2011 [facility] [address] [id number] [address] [place] [address], [place] [address] Mar, [facility] [address] [id number] [address] [place] [address], [place] [address] Mar, [facility] [address] [facility] [id number] [address] [place] [id number] Dec, [facility] [address] [facility] [id number] [address] [place] [id number] Dec, [facility] [address] [facility] [id number] [address] [place] [id number] Dec, IMMUNIZATIONS No Known Immunizations SOCIAL HISTORY [...]
--- OUTSIDE RECORDS SUMMARY | 2019-06-21 16:29 | XMS REPORT ---
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 Name Role Phone ELVIN ABDI Unavailable PROBLEMS Type Condition ICD9-CM Code [id number] Code Onset Dates Condition S tatus SNOMED Code Problem Hyperlipidemia E78.5 Active 44076 004 Problem Left leg claudication I73.9 Active 019324239 Problem DM neuro manif type II E11.49 Active 17562010 Problem Impaired circulation I99.9 Active 68573687 Problem Reactive depression F32.9 Active 44719489 Problem Cigarette nicotine dependence with nicotine-induced di sorder F17.219 Active 37055604 Problem 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 Active 22513 005 Problem Carotid artery disease I77.9 Active 552263318 Problem Hypercholesteremia E78.00 Active 2 48423567 Problem Onychomycosis B35.1 Active 525477 008 Problem Arthritis M19.90 Active 4807885 Problem Panlobular emphysema J43.1 Active 9491684 Problem Hammertoe M20.40 Active 353334410 Problem Type 2 diabetes mellitus E11.9 Activ e 75478643 Problem Essential (primary) hypertension I10 Active 23748794 Problem Tobacco abuse Z72.0 Active 949809 05 Problem PAD (peripheral artery disease) I73.9 Active 905503529 ALLERGIES No Information ENCOUNTERS Encounter Location Date Diagnosis [facility] [address] [place] [address] Jan, [facility] [address] [facility] [id number] [address] [place] [address] Jan, [facility] [address] [place] [address] Oct, Type 2 diabetes mellitus E11.9 and Essen tial (primary) hypertension I10 [facility] [address] [facility] [id number] [address] [place] [address] Oct, Onychomycosis B35.1 ; Diabet es mellitus E11.9 and Impaired circulation I99.[address] [address] Oct, Diabetes mellitus E11.9 and Hypertension I10 [address] [address] Oct, Hypertension I10 [address] [address] Sep, [facility] [address] [id number] [address] [place] [address] Sep[address] [address] Aug, [facility] [address] [id number] [address] [place] [address] Aug, Panlobular emphysema J43.[address] [address] Aug, Panlobular emphysema J43.[address] [address] Aug, Panlobular emphysema J43.[address] [address] Jul, Encounter for screening for malignant ne oplasm of colon Z12.11 ; CAD (coronary artery disease) I25.10 ; Cigarette nicotine dependence with nicotine- induced disorder F17.219 ; Essential (primary) hypertension I10 ; Panlobular emphysema J43.1 and DM neuro manif type II E11.[address] [address] Jul, Type 2 diabetes mellitus E11.[address] [address] Jul, [facility] [address] [id number] [address] [place] [address] Jul, Onychomycosis B35.1 and DM n euro manif type II E11.49 [place] [address] [facility] [id number] [address] [place] [address] June, Diabetes mellitus E11.[address] [address] May, [address] [address] Apr, Type 2 diabetes mellitus E11.9 ; [...] M20.40 ; Arthritis M19.90 and Hypoglycemia E16.2 [place] [address] [facility] [id number] [address] [place] [address] Apr, Diabetes mellitus E11.9 [place] [address] [address] [facility] [id number] [address] [place] [address] Apr, Onychomycosis B35.1 ; Impair ed circulation I99.9 and DM neuro manif type II E11.49 [place] [address] [address] [facility] [id number] [address] [place] [address] Jan, Diabetes mellitus E11.9 ; Hy pertension I10 and Encounter for immunization Z23 [place] [address] [facility] [id number] [address] [place] [address] Jan, Diabetes mellitus E11.9 [place] [address] [facility] [id number] [address] [place] [address] Jan, [place] [address] [facility] [id number] [address] [place] [address] Jan, [place] [address] [facility] [id number] [address] [place] [address] Oct, Onychomycosis B35.1 ; DM chuck ro manif type II E11.49 and Impaired circulation I99.9 [facility] [address] [facility] [id number] [address] [place] [address] Sep, [facility] [address] [facility] [id number] [address] [place] [address] Aug, Hypoglycemia E16.2 [facility] [address] [facility] [id number] [address] [place] [address] Aug, [facility] [address] [facility] [id number] [address] [place] [address] Jul, [facility] [address] [place] [id number] [address] [place] [address] Jul, Elevated blood sugar R73.9 a nd Neck pain M54.2 [place] [address] [place] [id number] [address] [place] [address] Jul, [facility] [address] [place] [id number] [address] [place] [address] Jul, Onychomycosis B35.1 and DM n euro manif type II E11.49 [facility] [address] [facility] [id number] [address] [place] [address] Jul, [place] [address] [place] [id number] [address] [place] [address] June, Hyperlipidemia E78.5 [facility] [address] [facility] [id number] [address] [place] [address] June, Diabetes mellitus E11.9 ; CA D (coronary artery disease) I25.10 ; Arthritis M19.90 and Hyperlipidemia E78.5 [facility] [address] [facility] [id number] [address] [place] [address] June, [facility] [address] [place] [id number] [address] [place] [address] Apr, Onychomycosis B35.1 ; DM chuck ro manif type II E11.49 and Hammertoe M20.40 [place] [address] [facility] [id number] [address] [place] [address] Apr, Diabetes mellitus E11.9 and Hypertension I10 [place] [address] [place] [id number] [address] [place] [address] Mar, Hypertension I10 and Diabete s mellitus E11.9 [place] [address] [facility] [id number] [address] [place] [address] Mar, Hypertension I10 and Diabete s mellitus E11.9 [place] [address] [place] [id number] [address] [place] [address] Jan, Onychomycosis B35.1 and DM n euro manif type II E11.49 [place] [address] [place] [id number] [address] [place] [address] Dec, [place] [address] [place] [id number] [address] [place] [address] Dec, [place] [address] [place] [id number] [address] [place] [address] Dec, Hypertension I10 and Diabete s mellitus E11.9 [place] [address] [place] [id number] [address] [place] [address] Oct, Encounter for immunization Z 23 ; Diabetes mellitus E11.9 ; Hypertension I10 and Cigarette nicotine dependence with nicotine-induced disorder F17.219 [place] [address] [place] [id number] [address] [place] [address] Oct, Diabetes mellitus E11.9 [place] [address] [place] [id number] [address] [place] [address] Oct, Onychomycosis B35.1 ; DM chuck ro manif type II E11.49 and Hammertoe M20.40 [place] [address] [place] [id number] [address] [place] [address] Jul, Diabetes mellitus E11.9 [place] [address] [facility] [id number] [address] [place] [address] Jul, Onychomycosis B35.1 ; Hammer toe M20.40 and DM neuro manif type II E11.49 [place] [address] [facility] [id number] [address] [place] [address] May, Diabetes mellitus E11.9 [place] [address] [place] [id number] [place] [address] May, Diabetes mellitus E11.9 [place] [address] [address] Nov, Diabetes mellitus E11.9 ; Hy pertension I10 ; Reactive depression F32.9 and Encounter for immunization Z23 [place] [address] [place] [id number] [place] [address] Oct, Ulcer of other part of foot L97.509 [place] [address] [address] Sep, Onychomycosis B35.1 ; Ulcer of heel, left, with unspecified severity L97.429 and DM neuro manif type II E11.49 [place] [id number] [place] [address] Sep, [place] [address] [place] [id number] [place] [address] Sep, Ulcer of heel, left, with un specified severity L97.429 [place] [address] [place] [id number] [address] [place] [address] Aug, Onychomycosis B35.1 ; Ulcer of heel, left, with unspecified severity L97.429 and DM neuro manif type II E11.49 [place] [address] [place] [id number] [address] [place] [address] Jul, Diabetes mellitus E11.9 ; Hy pertension I10 ; Cigarette nicotine dependence with nicotine-induced disorder F17.219 and CAD (coronary artery disease) I25.10 [facility] [address] [id number] [address] [place] [address] Jul, Left leg claudication I73.9 ; Right leg claudication I73.9 ; CAD (coronary artery disease) I25.10 ; Hypertension I10 and Hyperlipidemia E78.5 [facility] [address] [facility] [id number] [address] [place] [address] Jul, Ulcer of heel, left, with un specified severity L97.429 and DM neuro manif type II E11.49 [facility] [address] [id number] [address] [place] [address] June, Ulcer of heel, left, with un specified severity L97.429 and Ulcer of other part of foot L97.509 [place] [address] [facility] [id number] [address] [place] [address] June, Ulcer of heel, left, with un specified severity L97.429 and Ulcer of foot, left, with unspecified severity L97.529 [place] [address] [facility] [id number] [address] [place] [address] May, [facility] [address] [facility] [id number] [address] [place] [address] May, [facility] [address] [facility] [id number] [address] [place] [address] Apr, DM neuro manif type II E11.4 9 ; Hypertension I10 and Sleep apnea in adult G47.33 [facility] [address] [facility] [id number] [address] [place] [address] Apr, [facility] [address] [id number] [address] [place] [address] Apr, Ulcer of foot L97.509 and DM neuro manif type II E11.49 [facility] [address] [facility] [id number] [address] [place] [address] Apr, Ulcer of other part of foot L97.509 and DM neuro manif type II E11.49 [facility] [address] [address] 12 Apr, 2015 Onychomycosis B35.1 ; Ingrow n toenail L60.0 ; Impaired circulation I99.9 and DM neuro manif type II E11.[address] [address] 08 Mar, 2015 Ulcer of other part of foot L97.509 ; Onychomycosis B35.1 and Diabetes mellitus E11.[address] [address] 19 Dec, 2014 Encounter for immunization Z 23 ; Hypertension I10 and Diabetes mellitus E11.[address] [address] Dec, [address] [address] Dec, CAD (coronary artery disease ) I25.10 ; Hypertension I10 ; Left leg claudication I73.9 and Hyperlipidemia E78.[address] [address] Nov, Onychomycosis B35.1 and Vin ertoe M20.[address] [address] Sep, Coronary atherosclerosis of unspecified type of vessel, [place] or graft 414.[address] [address] Sep, Coronary atherosclerosis of unspecified type of vessel, [place] or graft 414.00 and Diabetes 250.[address] [address] May, [address] [address] May, [place] [address] [address] Apr, [facility] [address] [id number] [address] [place] [address], [place] [address] Apr, [facility] [address] [id number] [address] [place] [address], [place] [address] Apr, [facility] [address] [id number] [address] [place] [address], [place] [address] Apr, [facility] [address] [id number] [address] [place] [address], [place] [address] Mar, [facility] [address] [id number] [address] [place] [address], [place] [address] Mar, [facility] [address] [id number] [address] [place] [address], [place] [address] Jan, [facility] [address] [id number] [address] [place] [address], [place] [address] Jan, [facility] [address] [id number] [address] [place] [address], [place] [address] Jan, [facility] [address] [id number] [address] [place] [address], [place] [address] Jan, [facility] [address] [id number] [address] [place] [address], [place] [address] Jan, [facility] [address] [id number] [address] [place] [address], [place] [address] Jan, [facility] [address] [id number] [address] [place] [address], [place] [address] Jan, [facility] [address] [id number] [address] [place] [address], [place] [address] Jan, [facility] [address] [id number] [address] [place] [address], [place] [address] Jan, [facility] [address] [id number] [address] [place] [address], [place] [address] Jan, [facility] [address] [id number] [address] [place] [address] Jan, [facility] [address] [id number] [address] [place] [address], [place] [address] Nov, [facility] [address] [id number] [address] [place] [address], [place] [address] Nov, [facility] [address] [id number] [address] [place] [address], [place] [address] Nov, [facility] [address] [id number] [address] [place] [address], [place] [address] Nov, [facility] [address] [id number] [address] [place] [address], [place] [address] Nov, [facility] [address] [id number] [address] [place] [address], [place] [address] Nov, [facility] [address] [id number] [address] [place] [address], [place] [address] Oct, [facility] [address] [id number] [address] [place] [address], [place] [address] Oct, [facility] [address] [id number] [address] [place] [address], [place] [address] Oct, [facility] [address] [id number] [address] [place] [address], [place] [address] Oct, [facility] [address] [id number] [address] [place] [address], [place] [address] Oct, [facility] [address] [id number] [address] [place] [address], [place] [address] Oct, [facility] [address] [id number] [address] [place] [address], [place] [address] Sep, [facility] [address] [id number] [address] [place] [address], [place] [address] Sep, [facility] [address] [id number] [address] [place] [address], [place] [address] Sep, [facility] [address] [id number] [facility] [place] [address] Sep, [facility] [address] [id number] [facility] [place] [address] Sep, [facility] [address] [id number] [facility] [place] [address] Sep, [facility] [address] [id number] [address] [place] [address], [place] [address] Aug, [facility] [address] [id number] [address] [place] [address], [place] [address] Aug, [facility] [address] [id number] [address] [place] [address], [place] [address] Aug, [facility] [address] [id number] [address] [place] [address], [place] [address] Aug, [facility] [address] [id number] [address] [place] [address], [place] [address] Aug, [facility] [address] [id number] [address] [place] [address], [place] [address] Aug, [facility] [address] [id number] [address] [place] [address], [place] [address] Jul, [facility] [address] [id number] [address] [place] [address], [place] [address] Jul, [facility] [address] [id number] [address] [place] [address], [place] [address] Jul, [facility] [address] [id number] [address] [place] [address], [place] [address] Jul, [facility] [address] [id number] [address] [place] [address], [place] [address] June, [facility] [address] [id number] [address] [place] [address], [place] [address] June, [facility] [address] [id number] [address] [place] [address], [place] [address] June, [facility] [address] [id number] [address] [place] [address], [place] [address] June, [facility] [address] [id number] [address] [place] [address], [place] [address] May, [facility] [address] [id number] [address] [place] [address], [place] [address] May, [facility] [address] [id number] [address] [place] [address], [place] [address] May, [facility] [address] [id number] [address] [place] [address], [place] [address] May, [facility] [address] [id number] [address] [place] [address], [place] [address] May, [facility] [address] [id number] [address] [place] [address], [place] [address] May, [facility] [address] [id number] [address] [place] [address], [place] [address] Apr, [facility] [address] [id number] [address] [place] [address], [place] [address] Apr, [facility] [address] [id number] [address] [place] [address], [place] [address] Apr, [facility] [address] [id number] [address] [place] [address], [place] [address] Apr, [facility] [address] [id number] [address] [place] [address], [place] [address] Apr, [facility] [address] [id number] [address] [place] [address], [place] [address] Apr, [facility] [address] [id number] [address] [place] [address], [place] [address] Apr, [facility] [address] [id number] [address] [place] [address], [place] [address] Jan, [facility] [address] [id number] [address] [place] [address], [place] [address] Jan, [facility] [address] [id number] [address] [place] [address], [place] [address] Jan, [facility] [address] [id number] [address] [place] [address], [place] [address] Jan, [facility] [address] [id number] [address] [place] [address], [place] [address] Jan, [facility] [address] [id number] [address] [place] [address], [place] [address] Jan, [facility] [address] [id number] [address] [place] [address], [place] [address] Dec, [facility] [address] [id number] [address] [place] [address], [place] [address] Dec, [facility] [address] [id number] [address] [place] [address], [place] [id number] Dec, [facility] [address] [id number] [address] [place] [address], [place] [id number] Dec, [facility] [address] [id number] [address] [place] [address], [place] [id number] Dec, [facility] [address] [id number] [address] [place] [address], [place] [id number] Dec, [facility] [address] [id number] [address] [place] [address], [place] [id number] Nov, [facility] [address] [id number] [address] [place] [address], [place] [id number] Oct, [facility] [address] [id number] [address] [place] [address], [place] [id number] Oct, [facility] [address] [id number] [address] [place] [address], [place] [id number] Aug, [facility] [address] [id number] [address] [place] [address], [place] [id number] Aug, [facility] [address] [id number] [address] [place] [address], [place] [id number] Jul, [facility] [address] [id number] [address] [place] [address], [place] [id number] June, [facility] [address] [id number] [address] [place] [address], [place] [id number] Apr, [facility] [address] [id number] [address] [place] [address], [place] [id number] Apr, [facility] [address] [id number] [address] [place] [address], [place] [id number] Apr, [facility] [address] [id number] [address] [place] [address], [place] [id number] Apr, [facility] [address] [id number] [address] [place] [address], [place] [id number] Mar, [facility] [address] [id number] [address] [place] [address], [place] [id number] Jan, [facility] [address] [id number] [address] [place] [address], [place] [id number] Jan, [facility] [address] [id number] [address] [place] [address], [place] [id number] Jan, [facility] [address] [id number] [address] [place] [address], [place] [id number] Jan, [facility] [address] [id number] [address] [place] [address], [place] [id number] Jan, [facility] [address] [id number] [address] [place] [address], [place] [id number] Jan, [facility] [address] [id number] [address] [place] [address], [place] [id number] Jan, [facility] [address] [id number] [address] [place] [address], [place] [id number] Jan, [facility] [address] [id number] [address] [place] [address], [place] [id number] 16 Dec, 2011 [facility] [address] [id number] [address] [place] [address], [place] [id number] 16 Dec, 2011 [facility] [address] [id number] [address] [place] [address], [place] [id number] 16 Dec, 2011 [facility] [address] [id number] [address] [place] [address], [place] [id number] 16 Dec, 2011 [facility] [address] [id number] [address] [place] [address], [place] [id number] 17 Nov, 2011 [facility] [address] [id number] [address] [place] [address], [place] [id number] 24 Oct, 2011 [facility] [address] [id number] [address] [place] [address], [place] [id number] 14 Aug, 2011 [facility] [address] [id number] [address] [place] [address], [place] [id number] 14 Aug, 2011 [facility] [address] [id number] [address] [place] [address], [place] [id number] 14 Aug, 2011 [facility] [address] [id number] [address] [place] [address], [place] [id number] 13 Aug, 2011 [facility] [address] [id number] [address] [place] [address], [place] [id number] 13 Aug, 2011 [facility] [address] [id number] [address] [place] [address], [place] [id number] 20 May, 2011 [facility] [address] [id number] [address] [place] [address], [place] [id number] 16 Apr, 2011 [facility] [address] [id number] [address] [place] [address], [place] [address] 16 Apr, 2011 [facility] [address] [id number] [address] [place] [address], [place] [address] Mar, [facility] [address] [id number] [address] [place] [address], [place] [address] Mar, [facility] [address] [facility] [id number] [address] [place] [address] Dec, [facility] [address] [facility] [id number] [address] [place] [address] Dec, [facility] [address] [facility] [id number] [address] [place] [address] Dec, IMMUNIZATIONS No Known Immunizations SOCIAL HISTORY [...]
--- OUTSIDE RECORDS SUMMARY | 2019-06-21 16:29 | XMS REPORT ---
Author Author Nick Roberts Doctor Organization [facility] Address Unknown Phone Unavailable Care Team Providers Care Demurrage Clerk Name Role Phone Migration, Doctor Unavailable Unavailable PROBLEMS Type Condition ICD9-CM Code [id number] Code Onset Dates Condition S tatus SNOMED Code Problem Hyperlipidemia E78.5 Active 31225 004 Problem Left leg claudication I73.9 Active 861346936 Problem DM neuro manif type II E11.49 Active 23980396 Problem Impaired circulation I99.9 Active 47173954 Problem Reactive depression F32.9 Active 96002009 Problem Cigarette nicotine dependence with nicotine-induced di sorder F17.219 Active 79437067 Problem Arthritis M19.90 Active 6137752 Problem Hammertoe M20.40 Active 406473753 Problem Hypercholesteremia E78.00 Active 2 10363661 Problem Type 2 diabetes mellitus E11.9 Activ e 98614620 Problem Essential (primary) hypertension I10 Active 15565617 Problem Vitamin D deficiency E55.9 Active 49573900 Problem Carotid artery disease I77.9 Active 169082122 Problem Restless leg syndrome G25.81 Active 36325758 Problem 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 Active 93131 005 Problem Tobacco abuse Z72.0 Active 789032 05 Problem PAD (peripheral artery disease) I73.9 Active 808731441 Problem Onychomycosis B35.1 Active 102564 008 Problem Panlobular emphysema J43.1 Active 8845986 ALLERGIES No Information ENCOUNTERS Encounter Location Date Diagnosis [address] [place] [address] Apr, [address] [place] [address] Jan, Diarrhea, unspecified type R 19.7 [address] [place] [address] Jan, Type 2 diabetes mellitus E11 .9 ; Essential (primary) hypertension I10 ; Restless leg syndrome G25.81 ; Vitamin D deficiency E55.9 ; Diarrhea, unspecified type R19.7 and Encounter for immunization Z23 [address] [place] [address] Jan, Type 2 diabetes mellitus E11 .9 [address] [place] [address] Oct, Type 2 diabetes mellitus E11 .9 and Essential (primary) hypertension I10 [facility] [id number] [place] [address] Oct, Onychomycosis B35.1 ; Diabetes mellitus E11.9 and Impaired circulation I99.9 [address] [place] [address] Oct, Diabetes mellitus E11.9 and Hypertension I10 [address] [place] [address] Oct, Hypertension I10 [address] [place] [address] Sep, [facility] [id number] [place] [address] Sep, [address] [place] [address] Aug, [facility] [id number] [place] [address] Aug, Panlobular emphysema J43.1 [address] [place] [address] Aug, Panlobular emphysema J43.[address] [place] [address] Aug, Panlobular emphysema J43.[address] [place] [address] Jul, Encounter for screening for malignant neoplasm of colon Z12.11 ; CAD (coronary artery disease) I25.10 ; Cigarette nicotine dependence with nicotine-induced disorder F17.219 ; Essential (primary) hypertension I10 ; Panlobular emphysema J43.1 and DM neuro manif type II E11.49 [address] [place] [address] Jul, Type 2 diabetes mellitus E11 .9 [address] [place] [address] Jul, [place] [address] [address] Jul, Onychomycosis B35.1 and DM neuro manif t ype II E11.49 [place] [id number] [place] [address] June, Diabetes mellitus E11.9 [address] [place] [address] May, [address] [place] [address] Apr, Type 2 diabetes mellitus E11 .9 [...] M20.40 ; Arthritis M19.90 and Hypoglycemia E16.2 [facility] [id number] [place] [address] Apr, Diabetes mellitus E11.9 [place] [address] [address] Apr, Onychomycosis B35.1 ; Impaired circulati on I99.9 and DM neuro manif type II E11.49 [facility] [address] [address] Jan, Diabetes mellitus E11.9 ; Hypertension I 10 and Encounter for immunization Z23 [facility] [address] [address] Jan, Diabetes mellitus E11.9 [facility] [address] [address] Jan, [facility] [address] [address] Jan, [place] [address] [address] Oct, Onychomycosis B35.1 ; DM neuro manif typ e II E11.49 and Impaired circulation I99.9 [place] [address] [address] Sep, [place] [address] [address] Aug, Hypoglycemia E16.2 [place] [address] [address] Aug, [place] [address] [address] Jul, [place] [address] [address] Jul, Elevated blood sugar R73.9 and Neck pain M54.2 [facility] [address] [address] Jul, [place] [address] [address] Jul, Onychomycosis B35.1 and DM neuro manif t ype II E11.49 [facility] [address] [address] Jul, [facility] [address] [address] June, Hyperlipidemia E78.5 [place] [address] [address] June, Diabetes mellitus E11.9 ; CAD (coronary artery disease) I25.10 ; Arthritis M19.90 and Hyperlipidemia E78.5 [place] [address] [address] June, [place] [address] [address] Apr, Onychomycosis B35.1 ; DM neuro manif typ e II E11.49 and Hammertoe M20.[address] [address] Apr, Diabetes mellitus E11.9 and Hypertension I10 [place] [address] [address] Mar, Hypertension I10 and Diabetes mellitus E 11.9 [place] [address] [address] Mar, Hypertension I10 and Diabetes mellitus E 11.9 [place] [address] [address] Jan, Onychomycosis B35.1 and DM neuro manif t ype II E11.49 [place] [address] [address] Dec, [place] [address] [address] Dec, [place] [address] [address] Dec, Hypertension I10 and Diabetes mellitus E 11.9 [place] [address] [address] Oct, Encounter for immunization Z23 ; Diabete s mellitus E11.9 ; Hypertension I10 and Cigarette nicotine dependence with nicotine-induced disorder F17.219 [place] [address] [address] Oct, Diabetes mellitus E11.9 [place] [address] [address] Oct, Onychomycosis B35.1 ; DM neuro manif typ e II E11.49 and Hammertoe M20.40 [place] [address] [address] Jul, Diabetes mellitus E11.9 [place] [address] [address] Jul, Onychomycosis B35.1 ; Hammertoe M20.40 a nd DM neuro manif type II E11.49 [place] [address] [address] May, Diabetes mellitus E11.9 [place] [address] [address] May, Diabetes mellitus E11.9 [place] [address] [address] Nov, Diabetes mellitus E11.9 ; Hypertension I 10 ; Reactive depression F32.9 and Encounter for immunization Z23 [address] [address] Oct, Ulcer of other part of foot L97.509 [place] [address] [address] Sep, Onychomycosis B35.1 ; Ulcer of heel, lef t, with unspecified severity L97.429 and DM neuro manif type II E11.49 [place] [address] [address] Sep, [address] [address] Sep, Ulcer of heel, left, with unspecified se verity L97.[address] [address] Aug, Onychomycosis B35.1 ; Ulcer of heel, lef t, with unspecified severity L97.429 and DM neuro manif type II E11.[address] [address] Jul, Diabetes mellitus E11.9 ; Hypertension I 10 ; Cigarette nicotine dependence with nicotine-induced disorder F17.219 and CAD (coronary artery disease) I25.[address] [address] Jul, Left leg claudication I73.9 ; Right leg claudication I73.9 ; CAD (coronary artery disease) I25.10 ; Hypertension I10 and Hyperlipidemia E78.[address] [address] Jul, Ulcer of heel, left, with unspecified se verity L97.429 and DM neuro manif type II E11.[address] [address] June, Ulcer of heel, left, with unspecified se verity L97.429 and Ulcer of other part of foot L97.[address] [address] June, Ulcer of heel, left, with unspecified se verity L97.429 and Ulcer of foot, left, with unspecified severity L97.[address] [address] May, [address] [address] May, [address] [address] Apr, DM neuro manif type II E11.49 ; Hyperten yue I10 and Sleep apnea in adult G47.[address] [address] Apr, [address] [address] Apr, Ulcer of foot L97.509 and DM neuro manif type II E11.49 [place] [address] [address] Apr, Ulcer of other part of foot L97.509 and DM neuro manif type II E11.49 [place] [address] [address] Apr, Onychomycosis B35.1 ; Ingrown toenail L6 0.0 ; Impaired circulation I99.9 and DM neuro manif type II E11.49 [place] [address] [address] Mar, Ulcer of other part of foot L97.509 ; On ychomycosis B35.1 and Diabetes mellitus E11.[address] [address] Dec, Encounter for immunization Z23 ; Hyperte nsion I10 and Diabetes mellitus E11.9 [place] [address] [address] Dec, [address] [address] Dec, CAD (coronary artery disease) I25.10 ; H ypertension I10 ; Left leg claudication I73.9 and Hyperlipidemia E78.[address] [address] Nov, Onychomycosis B35.1 and Hammertoe M20.[address] [address] Sep, Coronary atherosclerosis of unspecified type of vessel, [place] or graft 414.[address] [address] Sep, Coronary atherosclerosis of unspecified type of vessel, [place] or graft 414.00 and Diabetes 250.00 [place] [address] [address] 14 May, 2014 [facility] [address] [id number] [place] [address] 13 May, 2014 [facility] [address] [id number] [place] [address] Apr, [facility] [address] [id number] [place] [address] Apr, [facility] [address] [id number] [place] [address] Apr, [facility] [address] [id number] [place] [address] Apr, [facility] [address] [id number] [place] [address] Mar, [facility] [address] [id number] [place] [address] Mar, [facility] [address] [id number] [place] [address] Jan, [facility] [address] [id number] [place] [address] Jan, [facility] [address] [id number] [place] [address] Jan, [facility] [address] [id number] [place] [address] Jan, [facility] [address] [id number] [place] [address] Jan, [facility] [address] [id number] [place] [address] Jan, [facility] [address] [id number] [place] [address] Jan, [facility] [address] [id number] [place] [address] Jan, [facility] [address] [id number] [place] [address] Jan, [facility] [address] [id number] [place] [address] Jan, [facility] [address] [facility] [id number] [place] [address] Jan, [facility] [address] [id number] [place] [address] Nov, [facility] [address] [id number] [place] [address] Nov, [facility] [address] [id number] [place] [address] Nov, [facility] [address] [id number] [place] [address] Nov, [facility] [address] [id number] [place] [address] Nov, [facility] [address] [id number] [place] [address] Nov, [facility] [address] [id number] [place] [address] Oct, [facility] [address] [id number] [place] [address] Oct, [facility] [address] [id number] [place] [address] Oct, [facility] [address] [id number] [place] [address] Oct, [facility] [address] [id number] [place] [address] Oct, [facility] [address] [id number] [place] [address] Oct, [facility] [address] [id number] [place] [address] Sep, [facility] [address] [id number] [place] [address] Sep, [facility] [address] [id number] [place] [address] Sep, [facility] [address] [id number] [place] [address] Sep, [facility] [address] [id number] [place] [address] Sep, [facility] [address] [id number] [place] [address] Sep, [facility] [address] [id number] [place] [address] Aug, [facility] [address] [facility] [id number] [place] [address] Aug, [facility] [address] [id number] [place] [address] Aug, [facility] [address] [id number] [place] [address] Aug, [facility] [address] [id number] [place] [address] Aug, [facility] [address] [id number] [place] [address] Aug, [facility] [address] [id number] [place] [address] Jul, [facility] [address] [id number] [place] [address] Jul, [facility] [address] [id number] [place] [address] Jul, [facility] [address] [id number] [place] [address] Jul, [facility] [address] [facility] [id number] [place] [address] June, [facility] [address] [id number] [place] [address] June, [facility] [address] [id number] [place] [address] June, [facility] [address] [id number] [place] [address] June, [facility] [address] [id number] [place] [address] May, [facility] [address] [id number] [place] [address] May, [facility] [address] [id number] [place] [address] May, [facility] [address] [id number] [place] [address] May, [facility] [address] [id number] [place] [address] May, [facility] [address] [id number] [place] [address] May, [facility] [address] [id number] [place] [address] Apr, [facility] [address] [id number] [place] [address] Apr, [facility] [address] [id number] [place] [address] Apr, [facility] [address] [id number] [place] [address] Apr, [facility] [address] [id number] [place] [address] Apr, [facility] [address] [id number] [place] [address] Apr, [facility] [address] [id number] [place] [address] Apr, [facility] [address] [id number] [place] [address] Jan, [facility] [address] [id number] [place] [address] Jan, [facility] [address] [id number] [place] [address] Jan, [facility] [address] [id number] [place] [address] Jan, [facility] [address] [id number] [place] [address] Jan, [facility] [address] [id number] [place] [address] Jan, [facility] [address] [id number] [place] [address] Dec, [facility] [address] [id number] [place] [address] Dec, [facility] [address] [id number] [place] [address] Dec, [facility] [address] [id number] [place] [address] Dec, [facility] [address] [id number] [place] [address] Dec, [facility] [address] [id number] [place] [address] Dec, [facility] [address] [id number] [place] [address] Nov, [facility] [address] [id number] [place] [address] Oct, [facility] [address] [id number] [place] [address] Oct, [facility] [address] [id number] [place] [address] Aug, [facility] [address] [id number] [place] [address] Aug, [facility] [id number] [place] [address] Jul, [facility] [address] [id number] [place] [address] June, [facility] [id number] [place] [address] Apr, [facility] [address] [id number] [place] [address] Apr, [facility] [address] [id number] [place] [address] Apr, [facility] [address] [id number] [place] [address] Apr, [facility] [address] [id number] [place] [address] Mar, [facility] [address] [id number] [place] [address] Jan, [facility] [address] [id number] [place] [address] Jan, [facility] [address] [id number] [place] [address] Jan, [facility] [id number] [place] [address] Jan, [facility] [address] [id number] [place] [address] Jan, [facility] [address] [id number] [place] [address] Jan, [facility] [address] [id number] [place] [address] Jan, [facility] [address] [id number] [place] [address] Jan, [facility] [address] [id number] [place] [address] Nov, [facility] [address] [id number] [place] [address] Nov, [facility] [address] [id number] [place] [address] Nov, [facility] [address] [id number] [place] [address] Nov, [facility] [id number] [place] [address] 17 Nov, 2011 [facility] [id number] [place] [address] Sep, [facility] [id number] [place] [address] 14 Aug, 2011 [facility] [id number] [place] [address] 14 Aug, 2011 [facility] [id number] [place] [address] 14 Aug, 2011 [facility] [id number] [place] [address] 13 Aug, 2011 [facility] [id number] [place] [address] 13 Aug, 2011 [facility] [id number] [place] [address] Apr, [facility] [id number] [place] [address] 16 Apr, 2011 [facility] [id number] [place] [address] Apr, [facility] [id number] [place] [address] Mar, [facility] [id number] [place] [address] Mar, [facility] [id number] [place] [address] Dec, [facility] [id number] [place] [address] Dec, [facility] [id number] [place] [address] Dec, IMMUNIZATIONS No Known Immunizations SOCIAL HISTORY Never Assessed REASON FOR VISIT PLAN OF CARE VITAL SIGNS Blood pressure systolic 128 mmHg 2013-08-19 Blood pressure diastolic 78 mmHg 2013-08-19 MEDICATIONS Unknown Medications RESULTS No Results PROCEDURES Procedure Date Ordered Result Body Site DEBRIDE NAIL, 6 OR MORE August 19, 2013 INSTRUCTIONS MEDICATIONS ADMINISTERED No Known Medications [...]
--- OUTSIDE RECORDS SUMMARY | 2019-06-21 16:29 | XMS REPORT ---
Author Author Nick ABDI Organization [facility] Address [address] [place] [address] Care Team Providers Care Gold Wheel Blocker And Polisher Name Role Phone ELVIN ABDI Unavailable PROBLEMS Type Condition ICD9-CM Code XTR31-KQ Code Onset Dates Condition S tatus SNOMED Code Problem Hyperlipidemia E78.5 Active 90381 004 Problem Left leg claudication I73.9 Active 612854954 Problem DM neuro manif type II E11.49 Active 05618127 Problem Impaired circulation I99.9 Active 21148875 Problem Reactive depression F32.9 Active 33150900 Problem Cigarette nicotine dependence with nicotine-induced di sorder F17.219 Active 25711627 Problem 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 Active 50386 005 Problem Carotid artery disease I77.9 Active 627770527 Problem Hypercholesteremia E78.00 Active 2 61778914 Problem Onychomycosis B35.1 Active 450701 008 Problem Arthritis M19.90 Active 7520101 Problem Panlobular emphysema J43.1 Active 2902329 Problem Hammertoe M20.40 Active 971959248 Problem Type 2 diabetes mellitus E11.9 Activ e 55102872 Problem Essential (primary) hypertension I10 Active 75800524 Problem Tobacco abuse Z72.0 Active 955657 05 Problem PAD (peripheral artery disease) I73.9 Active 360822756 ALLERGIES No Information ENCOUNTERS Encounter Location Date Diagnosis [facility] [address] [place] [address] Jan, [facility] [address] [facility] [id number] [address] [place] [address] Jan, [facility] [address] [place] [address] Oct, Type 2 diabetes mellitus E11.9 and Essen tial (primary) hypertension I10 [facility] [address] [facility] [id number] [address] [place] [address] Oct, Onychomycosis B35.1 ; Diabet es mellitus E11.9 and Impaired circulation I99.[address] [address] Oct, Diabetes mellitus E11.9 and Hypertension I10 [address] [address] Oct, Hypertension I10 [address] [address] Sep, [facility] [address] [id number] [address] [place] [address] Sep, [address] [address] Aug, [facility] [address] [id number] [address] [place] [address] Aug, Panlobular emphysema J43.[address] [address] Aug, Panlobular emphysema J43.[address] [address] Aug, Panlobular emphysema J43.[address] [address] Jul, Encounter for screening for malignant ne oplasm of colon Z12.11 ; CAD (coronary artery disease) I25.10 ; Cigarette nicotine dependence with nicotine- induced disorder F17.219 ; Essential (primary) hypertension I10 ; Panlobular emphysema J43.1 and DM neuro manif type II E11.[address] [address] Jul, Type 2 diabetes mellitus E11.[address] [address] Jul, [facility] [address] [id number] [address] [place] [address] Jul, Onychomycosis B35.1 and DM n euro manif type II E11.49 [place] [address] [facility] [id number] [address] [place] [address] June, Diabetes mellitus E11.[address] [address] May, [address] [address] Apr, Type 2 diabetes mellitus E11.9 ; [...] M20.40 ; Arthritis M19.90 and Hypoglycemia E16.2 [place] [address] [facility] [id number] [address] [place] [address] Apr, Diabetes mellitus E11.9 [place] [address] [facility] [id number] [address] [place] [address] Apr, Onychomycosis B35.1 ; Impair ed circulation I99.9 and DM neuro manif type II E11.49 [place] [address] [facility] [id number] [address] [place] [address] Jan, Diabetes mellitus E11.9 ; Hy pertension I10 and Encounter for immunization Z23 [place] [address] [facility] [id number] [address] [place] [address] Jan, Diabetes mellitus E11.9 [place] [address] [facility] [id number] [address] [place] [address] Jan, [place] [address] [facility] [id number] [address] [place] [address] Jan, [place] [address] [facility] [id number] [address] [place] [address] Oct, Onychomycosis B35.1 ; DM chuck ro manif type II E11.49 and Impaired circulation I99.9 [facility] [address] [facility] [id number] [address] [place] [address] Sep, [facility] [address] [facility] [id number] [address] [place] [address] Aug, Hypoglycemia E16.2 [facility] [address] [facility] [id number] [address] [place] [address] Aug, [facility] [address] [facility] [id number] [address] [place] [address] Jul, [facility] [address] [place] [id number] [address] [place] [address] Jul, Elevated blood sugar R73.9 a nd Neck pain M54.2 [place] [address] [place] [id number] [address] [place] [address] Jul, [facility] [address] [place] [id number] [address] [place] [address] Jul, Onychomycosis B35.1 and DM n euro manif type II E11.49 [facility] [address] [facility] [id number] [address] [place] [address] Jul, [place] [address] [place] [id number] [address] [place] [address] June, Hyperlipidemia E78.5 [facility] [address] [facility] [id number] [address] [place] [address] June, Diabetes mellitus E11.9 ; CA D (coronary artery disease) I25.10 ; Arthritis M19.90 and Hyperlipidemia E78.5 [facility] [address] [facility] [id number] [address] [place] [address] June, [facility] [address] [place] [id number] [address] [place] [address] Apr, Onychomycosis B35.1 ; DM chuck ro manif type II E11.49 and Hammertoe M20.40 [place] [address] [facility] [id number] [address] [place] [address] Apr, Diabetes mellitus E11.9 and Hypertension I10 [place] [address] [place] [id number] [address] [place] [address] Mar, Hypertension I10 and Diabete s mellitus E11.9 [place] [address] [facility] [id number] [address] [place] [address] Mar, Hypertension I10 and Diabete s mellitus E11.9 [place] [address] [place] [id number] [address] [place] [address] Jan, Onychomycosis B35.1 and DM n euro manif type II E11.49 [place] [address] [place] [id number] [address] [place] [address] Dec, [place] [address] [place] [id number] [address] [place] [address] Dec, [place] [address] [place] [id number] [address] [place] [address] Dec, Hypertension I10 and Diabete s mellitus E11.9 [place] [address] [place] [id number] [address] [place] [address] Oct, Encounter for immunization Z 23 ; Diabetes mellitus E11.9 ; Hypertension I10 and Cigarette nicotine dependence with nicotine-induced disorder F17.219 [place] [address] [place] [id number] [address] [place] [address] Oct, Diabetes mellitus E11.9 [place] [address] [place] [id number] [address] [place] [address] Oct, Onychomycosis B35.1 ; DM chuck ro manif type II E11.49 and Hammertoe M20.40 [place] [address] [place] [id number] [address] [place] [address] Jul, Diabetes mellitus E11.9 [place] [address] [facility] [id number] [address] [place] [address] Jul, Onychomycosis B35.1 ; Hammer toe M20.40 and DM neuro manif type II E11.49 [place] [address] [facility] [id number] [address] [place] [address] May, Diabetes mellitus E11.9 [place] [address] [place] [id number] [place] [address] May, Diabetes mellitus E11.9 [place] [address] [address] Nov, Diabetes mellitus E11.9 ; Hy pertension I10 ; Reactive depression F32.9 and Encounter for immunization Z23 [place] [address] [place] [id number] [place] [address] Oct, Ulcer of other part of foot L97.509 [place] [address] [address] Sep, Onychomycosis B35.1 ; Ulcer of heel, left, with unspecified severity L97.429 and DM neuro manif type II E11.49 [place] [id number] [place] [address] Sep, [place] [address] [place] [id number] [place] [address] Sep, Ulcer of heel, left, with un specified severity L97.429 [place] [address] [place] [id number] [address] [place] [address] Aug, Onychomycosis B35.1 ; Ulcer of heel, left, with unspecified severity L97.429 and DM neuro manif type II E11.49 [place] [address] [place] [id number] [address] [place] [address] Jul, Diabetes mellitus E11.9 ; Hy pertension I10 ; Cigarette nicotine dependence with nicotine-induced disorder F17.219 and CAD (coronary artery disease) I25.10 [facility] [address] [id number] [address] [place] [address] Jul, Left leg claudication I73.9 ; Right leg claudication I73.9 ; CAD (coronary artery disease) I25.10 ; Hypertension I10 and Hyperlipidemia E78.5 [facility] [address] [facility] [id number] [address] [place] [address] Jul, Ulcer of heel, left, with un specified severity L97.429 and DM neuro manif type II E11.49 [facility] [address] [id number] [address] [place] [address] June, Ulcer of heel, left, with un specified severity L97.429 and Ulcer of other part of foot L97.509 [place] [address] [facility] [id number] [address] [place] [address] June, Ulcer of heel, left, with un specified severity L97.429 and Ulcer of foot, left, with unspecified severity L97.529 [place] [address] [facility] [id number] [address] [place] [address] May, [facility] [address] [facility] [id number] [address] [place] [address] May, [facility] [address] [facility] [id number] [address] [place] [address] Apr, DM neuro manif type II E11.4 9 ; Hypertension I10 and Sleep apnea in adult G47.33 [facility] [address] [facility] [id number] [address] [place] [address] Apr, [facility] [address] [id number] [address] [place] [address] Apr, Ulcer of foot L97.509 and DM neuro manif type II E11.49 [facility] [address] [facility] [id number] [address] [place] [address] Apr, Ulcer of other part of foot L97.509 and DM neuro manif type II E11.49 [facility] [address] [address] 12 Apr, 2015 Onychomycosis B35.1 ; Ingrow n toenail L60.0 ; Impaired circulation I99.9 and DM neuro manif type II E11.[address] [address] 08 Mar, 2015 Ulcer of other part of foot L97.509 ; Onychomycosis B35.1 and Diabetes mellitus E11.[address] [address] 19 Dec, 2014 Encounter for immunization Z 23 ; Hypertension I10 and Diabetes mellitus E11.[address] [address] Dec, [address] [address] Dec, CAD (coronary artery disease ) I25.10 ; Hypertension I10 ; Left leg claudication I73.9 and Hyperlipidemia E78.[address] [address] Nov, Onychomycosis B35.1 and Vin ertoe M20.[address] [address] Sep, Coronary atherosclerosis of unspecified type of vessel, osage or graft 414.[address] [address] Sep, Coronary atherosclerosis of unspecified type of vessel, osage or graft 414.00 and Diabetes 250.[address] [address] May, [address] [address] May, [place] [address] [address] Apr, [facility] [address] [id number] [address] [place] [address], [place] [address] Apr, [facility] [address] [id number] [address] [place] [address], [place] [address] Apr, [facility] [address] [id number] [address] [place] [address], [place] [address] Apr, [facility] [address] [id number] [address] [place] [address], [place] [address] Mar, [facility] [address] [id number] [address] [place] [address], [place] [address] Mar, [facility] [address] [id number] [address] [place] [address], [place] [address] Jan, [facility] [address] [id number] [address] [place] [address], [place] [address] Jan, [facility] [address] [id number] [address] [place] [address], [place] [address] Jan, [facility] [address] [id number] [address] [place] [address], [place] [address] Jan, [facility] [address] [id number] [address] [place] [address], [place] [address] Jan, [facility] [address] [id number] [address] [place] [address], [place] [address] Jan, [facility] [address] [id number] [address] [place] [address], [place] [address] Jan, [facility] [address] [id number] [address] [place] [address], [place] [address] Jan, [facility] [address] [id number] [address] [place] [address], [place] [address] Jan, [facility] [address] [id number] [address] [place] [address], [place] [address] Jan, [facility] [address] [id number] [address] [place] [address] Jan, [facility] [address] [id number] [address] [place] [address], [place] [address] Nov, [facility] [address] [id number] [address] [place] [address], [place] [address] Nov, [facility] [address] [id number] [address] [place] [address], [place] [address] Nov, [facility] [address] [id number] [address] [place] [address], [place] [address] Nov, [facility] [address] [id number] [address] [place] [address], [place] [address] Nov, [facility] [address] [id number] [address] [place] [address], [place] [address] Nov, [facility] [address] [id number] [address] [place] [address], [place] [address] Oct, [facility] [address] [id number] [address] [place] [address], [place] [address] Oct, [facility] [address] [id number] [address] [place] [address], [place] [address] Oct, [facility] [address] [id number] [address] [place] [address], [place] [address] Oct, [facility] [address] [id number] [address] [place] [address], [place] [address] Oct, [facility] [address] [id number] [address] [place] [address], [place] [address] Oct, [facility] [address] [id number] [address] [place] [address], [place] [address] Sep, [facility] [address] [id number] [address] [place] [address], [place] [address] Sep, [facility] [address] [id number] [address] [place] [address], [place] [address] Sep, [facility] [address] [id number] [facility] [place] [address] Sep, [facility] [address] [id number] [facility] [place] [address] Sep, [facility] [address] [id number] [facility] [place] [address] Sep, [facility] [address] [id number] [address] [place] [address], [place] [address] Aug, [facility] [address] [id number] [address] [place] [address], [place] [address] Aug, [facility] [address] [id number] [address] [place] [address], [place] [address] Aug, [facility] [address] [id number] [address] [place] [address], [place] [address] Aug, [facility] [address] [id number] [address] [place] [address], [place] [address] Aug, [facility] [address] [id number] [address] [place] [address], [place] [address] Aug, [facility] [address] [id number] [address] [place] [address], [place] [address] Jul, [facility] [address] [id number] [address] [place] [address], [place] [address] Jul, [facility] [address] [id number] [address] [place] [address], [place] [address] Jul, [facility] [address] [id number] [address] [place] [address], [place] [address] Jul, [facility] [address] [id number] [address] [place] [address], [place] [address] June, [facility] [address] [id number] [address] [place] [address], [place] [address] June, [facility] [address] [id number] [address] [place] [address], [place] [address] June, [facility] [address] [id number] [address] [place] [address], [place] [address] June, [facility] [address] [id number] [address] [place] [address], [place] [address] May, [facility] [address] [id number] [address] [place] [address], [place] [address] May, [facility] [address] [id number] [address] [place] [address], [place] [address] May, [facility] [address] [id number] [address] [place] [address], [place] [address] May, [facility] [address] [id number] [address] [place] [address], [place] [address] May, [facility] [address] [id number] [address] [place] [address], [place] [address] May, [facility] [address] [id number] [address] [place] [address], [place] [address] Apr, [facility] [address] [id number] [address] [place] [address], [place] [address] Apr, [facility] [address] [id number] [address] [place] [address], [place] [address] Apr, [facility] [address] [id number] [address] [place] [address], [place] [address] Apr, [facility] [address] [id number] [address] [place] [address], [place] [address] Apr, [facility] [address] [id number] [address] [place] [address], [place] [address] Apr, [facility] [address] [id number] [address] [place] [address], [place] [address] Apr, [facility] [address] [id number] [address] [place] [address], [place] [address] Jan, [facility] [address] [id number] [address] [place] [address], [place] [address] Jan, [facility] [address] [id number] [address] [place] [address], [place] [address] Jan, [facility] [address] [id number] [address] [place] [address], [place] [address] Jan, [facility] [address] [id number] [address] [place] [address], [place] [address] Jan, [facility] [address] [id number] [address] [place] [address], [place] [address] Jan, [facility] [address] [id number] [address] [place] [address], [place] [address] Dec, [facility] [address] [id number] [address] [place] [address], [place] [address] Dec, [facility] [address] [id number] [address] [place] [address], [place] [address] Dec, [facility] [address] [id number] [address] [place] [address], [place] [address] Dec, [facility] [address] [id number] [address] [place] [address], [place] [address] Dec, [facility] [address] [id number] [address] [place] [address], [place] [address] Dec, [facility] [address] [id number] [address] [place] [address], [place] [address] Nov, [facility] [address] [id number] [address] [place] [address], [place] [address] Oct, [facility] [address] [id number] [address] [place] [address], [place] [address] Oct, [facility] [address] [id number] [address] [place] [address], [place] [address] Aug, [facility] [address] [id number] [address] [place] [address], [place] [address] Aug, [facility] [address] [id number] [address] [place] [address], [place] [address] Jul, [facility] [address] [id number] [address] [place] [address], [place] [address] June, [facility] [address] [id number] [address] [place] [address], [place] [address] Apr, [facility] [address] [id number] [address] [place] [address], [place] [address] Apr, [facility] [address] [id number] [address] [place] [address], [place] [address] Apr, [facility] [address] [id number] [address] [place] [address], [place] [address] Apr, [facility] [address] [id number] [address] [place] [address], [place] [address] Mar, [facility] [address] [id number] [address] [place] [address], [place] [address] Jan, [facility] [address] [id number] [address] [place] [address], [place] [address] Jan, [facility] [address] [id number] [address] [place] [address], [place] [address] Jan, [facility] [address] [id number] [address] [place] [address], [place] [address] Jan, [facility] [address] [id number] [address] [place] [address], [place] [address] Jan, [facility] [address] [id number] [address] [place] [address], [place] [address] Jan, [facility] [address] [id number] [address] [place] [address], [place] [address] Jan, [facility] [address] [id number] [address] [place] [address], [place] [address] Jan, [facility] [address] [id number] [address] [place] [address], [place] [address] 16 Dec, 2011 [facility] [address] [id number] [address] [place] [address], [place] [address] 16 Dec, 2011 [facility] [address] [id number] [address] [place] [address], [place] [address] 16 Dec, 2011 [facility] [address] [id number] [address] [place] [address], [place] [address] 16 Dec, 2011 [facility] [address] [id number] [address] [place] [address], [place] [address] 17 Nov, 2011 [facility] [address] [id number] [address] [place] [address], [place] [address] 24 Oct, 2011 [facility] [address] [id number] [address] [place] [address], [place] [address] 14 Aug, 2011 [facility] [address] [id number] [address] [place] [address], [place] [address] 14 Aug, 2011 [facility] [address] [id number] [address] [place] [address], [place] [address] 14 Aug, 2011 [facility] [address] [id number] [address] [place] [address], [place] [address] 13 Aug, 2011 [facility] [address] [id number] [address] [place] [address], [place] [address] 13 Aug, 2011 [facility] [address] [id number] [address] [place] [address], [place] [address] 20 May, 2011 [facility] [facility] [address] [id number] [address] [place] [address], [place] [address] 16 Apr, 2011 [facility] [address] [id number] [address] [place] [address], [place] [address] 16 Apr, 2011 [facility] [address] [id number] [address] [place] [address], [place] [address] Mar, [facility] [address] [id number] [address] [place] [address], [place] [address] Mar, [facility] [address] [facility] [id number] [address] [place] [address] Dec, [facility] [address] [facility] [id number] [address] [place] [address] Dec, [facility] [address] [facility] [id number] [address] [place] [address] Dec, IMMUNIZATIONS No Known Immunizations SOCIAL HISTORY [...]
--- OUTSIDE RECORDS SUMMARY | 2019-06-21 16:29 | XMS REPORT ---
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 Name Role Phone ELVIN ABDI Unavailable PROBLEMS Type Condition ICD9-CM Code ZOF27-HB Code Onset Dates Condition S tatus SNOMED Code Problem Hyperlipidemia E78.5 Active 69827 004 Problem Left leg claudication I73.9 Active 535018014 Problem DM neuro manif type II E11.49 Active 57391450 Problem Impaired circulation I99.9 Active 95097135 Problem Reactive depression F32.9 Active 57158406 Problem Cigarette nicotine dependence with nicotine-induced di sorder F17.219 Active 09280287 Problem Arthritis M19.90 Active 5503594 Problem Hammertoe M20.40 Active 780017280 Problem Hypercholesteremia E78.00 Active 2 20120902 Problem Type 2 diabetes mellitus E11.9 Activ e 98969206 Problem Essential (primary) hypertension I10 Active 18222218 Problem Vitamin D deficiency E55.9 Active 34027248 Problem Carotid artery disease I77.9 Active 664378815 Problem Restless leg syndrome G25.81 Active 33503855 Problem 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 Active 86513 005 Problem Tobacco abuse Z72.0 Active 917449 05 Problem PAD (peripheral artery disease) I73.9 Active 594672203 Problem Onychomycosis B35.1 Active 577024 008 Problem Panlobular emphysema J43.1 Active 7405500 ALLERGIES No Information ENCOUNTERS Encounter Location Date Diagnosis [address] [place] [address] 09 May, 2019 [address] [place] [address] Jan, Diarrhea, unspecified type R 19.7 [address] [place] [address] Jan, Type 2 diabetes mellitus E11 .9 ; Essential (primary) hypertension I10 ; Restless leg syndrome G25.81 ; Vitamin D deficiency E55.9 ; Diarrhea, unspecified type R19.7 and Encounter for immunization Z23 [facility] [address] [place] [address] Jan, Type 2 diabetes mellitus E11 .[address] [place] [address] Oct, Type 2 diabetes mellitus E11 .9 and Essential (primary) hypertension I10 [facility] [id number] [place] [address] Oct, Onychomycosis B35.1 ; Diabetes mellitus E11.9 and Impaired circulation I99.9 [address] [place] [address] Oct, Diabetes mellitus E11.9 and Hypertension I10 [address] [place] [address] Oct, Hypertension I10 [address] [place] [address] Sep, [facility] [id number] [place] [address] Sep, [address] [place] [address] Aug, [facility] [id number] [place] [address] Aug, Panlobular emphysema J43.1 [address] [place] [address] Aug, Panlobular emphysema J43.1 [address] [place] [address] Aug, Panlobular emphysema J43.1 [address] [place] [address] Jul, Encounter for screening for malignant neoplasm of colon Z12.11 ; CAD (coronary artery disease) I25.10 ; Cigarette nicotine dependence with nicotine-induced disorder F17.219 ; Essential (primary) hypertension I10 ; Panlobular emphysema J43.1 and DM neuro manif type II E11.49 [address] [place] [address] Jul, Type 2 diabetes mellitus E11 .9 [address] [place] [address] Jul, [facility] [id number] [place] [address] Jul, Onychomycosis B35.1 and DM neuro manif t ype II E11.49 [facility] [id number] [place] [address] June, Diabetes mellitus E11.9 [address] [place] [address] May, [address] [place] [address] Apr, Type 2 diabetes mellitus E11 .9 [...] M20.40 ; Arthritis M19.90 and Hypoglycemia E16.2 [facility] [id number] [place] [address] Apr, Diabetes mellitus E11.9 [facility] [address] [address] Apr, Onychomycosis B35.1 ; Impaired circulati on I99.9 and DM neuro manif type II E11.49 [address] [address] Jan, Diabetes mellitus E11.9 ; Hypertension I 10 and Encounter for immunization Z23 [facility] [address] [address] Jan, Diabetes mellitus E11.9 [address] [address] [address] Jan, [address] [address] Jan, [address] [address] [address] [address] Oct, Onychomycosis B35.1 ; DM neuro manif typ e II E11.49 and Impaired circulation I99.9 [address] [address] [address] Sep, [address] [address] [address] [address] Aug, Hypoglycemia E16.2 [address] [address] [address] Aug, [address] [address] [address] Jul, [address] [address] [address] [address] Jul, Elevated blood sugar R73.9 and Neck pain M54.2 [place] [address] [address] Jul, [address] [address] [address] Jul, Onychomycosis B35.1 and DM neuro manif t ype II E11.49 [place] [address] [address] Jul, [address] [address] [address] [address] June, Hyperlipidemia E78.5 [place] [address] [address] June, Diabetes mellitus E11.9 ; CAD (coronary artery disease) I25.10 ; Arthritis M19.90 and Hyperlipidemia E78.5 [place] [address] [address] June, [address] [address] [address] Apr, Onychomycosis B35.1 ; DM neuro manif typ e II E11.49 and Hammertoe M20.[address] [address] Apr, Diabetes mellitus E11.9 and Hypertension I10 [address] [address] Mar, Hypertension I10 and Diabetes mellitus E 11.9 [place] [address] [address] Mar, Hypertension I10 and Diabetes mellitus E 11.9 [place] [address] [address] Jan, Onychomycosis B35.1 and DM neuro manif t ype II E11.49 [place] [address] [address] Dec, [place] [address] [address] Dec, [address] [address] Dec, Hypertension I10 and Diabetes mellitus E 11.9 [place] [address] [address] Oct, Encounter for immunization Z23 ; Diabete s mellitus E11.9 ; Hypertension I10 and Cigarette nicotine dependence with nicotine-induced disorder F17.219 [place] [address] [address] Oct, Diabetes mellitus E11.9 [place] [address] [address] Oct, Onychomycosis B35.1 ; DM neuro manif typ e II E11.49 and Hammertoe M20.40 [place] [address] [address] Jul, Diabetes mellitus E11.9 [place] [address] [address] Jul, Onychomycosis B35.1 ; Hammertoe M20.40 a nd DM neuro manif type II E11.49 [place] [address] [address] [address] May, Diabetes mellitus E11.9 [place] [address] [address] May, Diabetes mellitus E11.9 [place] [address] [address] Nov, Diabetes mellitus E11.9 ; Hypertension I 10 ; Reactive depression F32.9 and Encounter for immunization Z23 [place] [address] [address] Oct, Ulcer of other part of foot L97.509 [place] [address] [address] Sep, Onychomycosis B35.1 ; Ulcer of heel, lef t, with unspecified severity L97.429 and DM neuro manif type II E11.49 [place] [address] [address] Sep, [place] [address] [address] Sep, Ulcer of heel, left, with unspecified se verity L97.[address] [address] Aug, Onychomycosis B35.1 ; Ulcer of heel, lef t, with unspecified severity L97.429 and DM neuro manif type II E11.[address] [address] Jul, Diabetes mellitus E11.9 ; Hypertension I 10 ; Cigarette nicotine dependence with nicotine-induced disorder F17.219 and CAD (coronary artery disease) I25.[address] [address] Jul, Left leg claudication I73.9 ; Right leg claudication I73.9 ; CAD (coronary artery disease) I25.10 ; Hypertension I10 and Hyperlipidemia E78.[address] [address] Jul, Ulcer of heel, left, with unspecified se verity L97.429 and DM neuro manif type II E11.[address] [address] June, Ulcer of heel, left, with unspecified se verity L97.429 and Ulcer of other part of foot L97.[address] [address] June, Ulcer of heel, left, with unspecified se verity L97.429 and Ulcer of foot, left, with unspecified severity L97.[address] [address] May, [address] [address] May, [address] [address] Apr, DM neuro manif type II E11.49 ; Hyperten yue I10 and Sleep apnea in adult G47.[address] [address] Apr, [address] [address] [address] [address] Apr, Ulcer of foot L97.509 and DM neuro manif type II E11.49 [place] [address] [address] Apr, Ulcer of other part of foot L97.509 and DM neuro manif type II E11.[address] [address] Apr, Onychomycosis B35.1 ; Ingrown toenail L6 0.0 ; Impaired circulation I99.9 and DM neuro manif type II E11.[address] [address] Mar, Ulcer of other part of foot L97.509 ; On ychomycosis B35.1 and Diabetes mellitus E11.[address] [address] Dec, Encounter for immunization Z23 ; Hyperte nsion I10 and Diabetes mellitus E11.[address] [address] Dec, [address] [address] Dec, CAD (coronary artery disease) I25.10 ; H ypertension I10 ; Left leg claudication I73.9 and Hyperlipidemia E78.[address] [address] Nov, Onychomycosis B35.1 and Hammertoe M20.[address] [address] Sep, Coronary atherosclerosis of unspecified type of vessel, ramona or graft 414.[address] [address] Sep, Coronary atherosclerosis of unspecified type of vessel, ramona or graft 414.00 and Diabetes 250.00 [facility] [address] [id number] [place] [address] 14 May, 2014 [facility] [address] [id number] [place] [address] May, [facility] [address] [id number] [place] [address] Apr, [facility] [id number] [place] [address] Apr, [facility] [address] [id number] [place] [address] Apr, [facility] [id number] [place] [address] Apr, [facility] [address] [id number] [place] [address] Mar, [facility] [id number] [place] [address] Mar, [facility] [address] [id number] [place] [address] Jan, [facility] [id number] [place] [address] Jan, [facility] [id number] [place] [address] Jan, [facility] [id number] [place] [address] Jan, [facility] [address] [id number] [place] [address] Jan, [facility] [id number] [place] [address] Jan, [facility] [id number] [place] [address] Jan, [facility] [id number] [place] [address] Jan, [facility] [address] [id number] [place] [address] Jan, [facility] [address] [facility] [id number] [place] [address] Jan, [facility] [address] [facility] [id number] [place] [address] Jan, [facility] [address] [id number] [place] [address] Nov, [facility] [address] [id number] [place] [address] Nov, [facility] [address] [id number] [place] [address] Nov, [facility] [address] [id number] [place] [address] Nov, [facility] [address] [id number] [place] [address] Nov, [facility] [address] [id number] [place] [address] Nov, [facility] [address] [id number] [place] [address] Oct, [facility] [address] [id number] [place] [address] Oct, [facility] [address] [id number] [place] [address] Oct, [facility] [address] [id number] [place] [address] Oct, [facility] [address] [id number] [place] [address] Oct, [facility] [address] [id number] [place] [address] Oct, [facility] [address] [id number] [place] [address] Sep, [facility] [address] [id number] [place] [address] Sep, [facility] [address] [facility] [id number] [facility] [place] [address] Sep, [facility] [address] [facility] [id number] [place] [address] Sep, [facility] [address] [facility] [id number] [place] [address] Sep, [facility] [address] [id number] [place] [address] Sep, [facility] [address] [facility] [id number] [place] [address] Aug, [facility] [address] [facility] [id number] [place] [address] Aug, [facility] [address] [id number] [place] [address] Aug, [facility] [address] [id number] [place] [address] Aug, [facility] [address] [id number] [place] [address] Aug, [facility] [address] [facility] [id number] [place] [address] Aug, [facility] [address] [id number] [place] [address] Jul, [facility] [address] [id number] [place] [address] Jul, [facility] [address] [id number] [place] [address] Jul, [facility] [address] [facility] [id number] [place] [address] Jul, [facility] [address] [id number] [place] [address] June, [facility] [address] [facility] [id number] [place] [address] June, [facility] [address] [id number] [place] [address] June, [facility] [address] [id number] [place] [address] June, [facility] [address] [id number] [place] [address] May, [facility] [address] [id number] [place] [address] May, [facility] [address] [id number] [place] [address] May, [facility] [address] [facility] [id number] [place] [address] May, [facility] [address] [id number] [place] [address] May, [facility] [address] [id number] [place] [address] May, [facility] [address] [id number] [place] [address] Apr, [facility] [address] [id number] [place] [address] Apr, [facility] [address] [id number] [place] [address] Apr, [facility] [address] [id number] [place] [address] Apr, [facility] [address] [id number] [place] [address] Apr, [facility] [address] [id number] [place] [address] Apr, [facility] [address] [id number] [place] [address] Apr, [facility] [address] [id number] [place] [address] Jan, [facility] [address] [id number] [place] [address] Jan, [facility] [address] [id number] [place] [address] Jan, [facility] [address] [id number] [place] [address] Jan, [facility] [address] [id number] [place] [address] Jan, [facility] [address] [id number] [place] [address] Jan, [facility] [address] [id number] [place] [address] Dec, [facility] [address] [id number] [place] [address] Dec, [facility] [id number] [place] [address] Dec, [facility] [id number] [place] [address] Dec, [facility] [id number] [place] [address] Dec, [facility] [address] [id number] [place] [address] Dec, [facility] [id number] [place] [address] Nov, [facility] [address] [id number] [place] [address] Oct, [facility] [id number] [place] [address] Oct, [facility] [address] [id number] [place] [address] Aug, [facility] [id number] [place] [address] Aug, [facility] [address] [id number] [place] [address] Jul, [facility] [address] [id number] [place] [address] June, [facility] [address] [id number] [place] [address] Apr, [facility] [address] [id number] [place] [address] Apr, [facility] [address] [id number] [place] [address] Apr, [facility] [address] [id number] [place] [address] Apr, [facility] [address] [id number] [place] [address] Mar, [facility] [address] [id number] [place] [address] Jan, [facility] [address] [id number] [place] [address] Jan, [facility] [id number] [place] [address] Jan, [facility] [address] [id number] [place] [address] Jan, [facility] [address] [id number] [place] [address] Jan, [facility] [address] [id number] [place] [address] Jan, [facility] [address] [id number] [place] [address] Jan, [facility] [address] [id number] [place] [address] Jan, [facility] [address] [id number] [place] [address] Nov, [facility] [address] [id number] [place] [address] Nov, [facility] [address] [id number] [place] [address] Nov, [facility] [address] [id number] [place] [address] 16 Dec, 2011 [facility] [id number] [place] [address] 17 Nov, 2011 [facility] [id number] [place] [address] 24 Oct, 2011 [facility] [id number] [place] [address] 14 Aug, 2011 [facility] [id number] [place] [address] 14 Aug, 2011 [facility] [id number] [place] [address] 14 Aug, 2011 [facility] [id number] [place] [address] 13 Aug, 2011 [facility] [id number] [place] [address] Jul, [facility] [id number] [place] [address] Apr, [facility] [id number] [place] [address] Apr, [facility] [id number] [place] [address] Apr, [facility] [id number] [place] [address] Mar, [facility] [id number] [place] [address] Mar, [facility] [id number] [place] [address] Dec, [facility] [id number] [place] [address] Dec, [facility] [id number] [place] [address] Dec, IMMUNIZATIONS No Known Immunizations SOCIAL HISTORY [...]
--- OUTSIDE RECORDS SUMMARY | 2019-06-21 16:30 | XMS REPORT ---
Author Author Nick ABDI Organization [facility] Address [address] [place] [address] Care Team Providers Care Tire Recapper Name Role Phone ELVIN ABDI Unavailable PROBLEMS Type Condition ICD9-CM Code [id number] Code Onset Dates Condition S tatus SNOMED Code Problem Hyperlipidemia E78.5 Active 61939 004 Problem Left leg claudication I73.9 Active 031219088 Problem DM neuro manif type II E11.49 Active 23098113 Problem Impaired circulation I99.9 Active 01019366 Problem Reactive depression F32.9 Active 01214049 Problem Cigarette nicotine dependence with nicotine-induced di sorder F17.219 Active 09321816 Problem 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 Active 16067 005 Problem Carotid artery disease I77.9 Active 150391866 Problem Hypercholesteremia E78.00 Active 2 76974805 Problem Onychomycosis B35.1 Active 588176 008 Problem Arthritis M19.90 Active 4468521 Problem Panlobular emphysema J43.1 Active 2034012 Problem Hammertoe M20.40 Active 025699218 Problem Type 2 diabetes mellitus E11.9 Activ e 26630400 Problem Essential (primary) hypertension I10 Active 07375223 Problem Tobacco abuse Z72.0 Active 976230 05 Problem PAD (peripheral artery disease) I73.9 Active 121995157 ALLERGIES No Information ENCOUNTERS Encounter Location Date Diagnosis [facility] [address] [place] [address] Jan, [facility] [address] [facility] [id number] [address] [place] [address] Jan, [facility] [address] [place] [address] Oct, Type 2 diabetes mellitus E11.9 and Essen tial (primary) hypertension I10 [facility] [address] [facility] [id number] [address] [place] [address] Oct, Onychomycosis B35.1 ; Diabet es mellitus E11.9 and Impaired circulation I99.[address] [address] Oct, Diabetes mellitus E11.9 and Hypertension I10 [address] [address] Oct, Hypertension I10 [address] [address] Sep, [facility] [address] [id number] [address] [place] [address] Sep, [address] [address] Aug, [facility] [address] [id number] [address] [place] [address] Aug, Panlobular emphysema J43.[address] [address] Aug, Panlobular emphysema J43.[address] [address] Aug, Panlobular emphysema J43.[address] [address] Jul, Encounter for screening for malignant ne oplasm of colon Z12.11 ; CAD (coronary artery disease) I25.10 ; Cigarette nicotine dependence with nicotine- induced disorder F17.219 ; Essential (primary) hypertension I10 ; Panlobular emphysema J43.1 and DM neuro manif type II E11.[address] [address] Jul, Type 2 diabetes mellitus E11.[address] [address] Jul, [facility] [address] [id number] [address] [place] [address] Jul, Onychomycosis B35.1 and DM n euro manif type II E11.49 [place] [id number] [facility] [id number] [address] [place] [address] June, Diabetes mellitus E11.[address] [address] May, [address] [address] Apr, Type 2 diabetes mellitus E11.9 ; [...] M20.40 ; Arthritis M19.90 and Hypoglycemia E16.2 [place] [address] [facility] [id number] [address] [place] [address] Apr, Diabetes mellitus E11.9 [place] [address] [facility] [id number] [address] [place] [address] Apr, Onychomycosis B35.1 ; Impair ed circulation I99.9 and DM neuro manif type II E11.49 [place] [address] [facility] [id number] [address] [place] [address] Jan, Diabetes mellitus E11.9 ; Hy pertension I10 and Encounter for immunization Z23 [place] [address] [facility] [id number] [address] [place] [address] Jan, Diabetes mellitus E11.9 [place] [address] [facility] [id number] [address] [place] [address] Jan, [place] [address] [facility] [id number] [address] [place] [address] Jan, [place] [address] [facility] [id number] [address] [place] [address] Oct, Onychomycosis B35.1 ; DM chuck ro manif type II E11.49 and Impaired circulation I99.9 [facility] [address] [facility] [id number] [address] [place] [address] Sep, [facility] [address] [facility] [id number] [address] [place] [address] Aug, Hypoglycemia E16.2 [facility] [address] [facility] [id number] [address] [place] [address] Aug, [facility] [address] [facility] [id number] [address] [place] [address] Jul, [facility] [address] [place] [id number] [address] [place] [address] Jul, Elevated blood sugar R73.9 a nd Neck pain M54.2 [place] [address] [place] [id number] [address] [place] [address] Jul, [facility] [address] [place] [id number] [address] [place] [address] Jul, Onychomycosis B35.1 and DM n euro manif type II E11.49 [facility] [address] [facility] [id number] [address] [place] [address] Jul, [place] [address] [place] [id number] [address] [place] [address] June, Hyperlipidemia E78.5 [facility] [address] [facility] [id number] [address] [place] [address] June, Diabetes mellitus E11.9 ; CA D (coronary artery disease) I25.10 ; Arthritis M19.90 and Hyperlipidemia E78.5 [facility] [address] [facility] [id number] [address] [place] [address] June, [facility] [address] [place] [id number] [address] [place] [address] Apr, Onychomycosis B35.1 ; DM chuck ro manif type II E11.49 and Hammertoe M20.40 [place] [address] [facility] [id number] [address] [place] [address] Apr, Diabetes mellitus E11.9 and Hypertension I10 [place] [address] [place] [id number] [address] [place] [address] Mar, Hypertension I10 and Diabete s mellitus E11.9 [place] [address] [facility] [id number] [address] [place] [address] Mar, Hypertension I10 and Diabete s mellitus E11.9 [place] [address] [place] [id number] [address] [place] [phone] Jan, Onychomycosis B35.1 and DM n euro manif type II E11.49 [place] [address] [place] [id number] [address] [place] [address] Dec, [place] [address] [place] [id number] [address] [place] [address] Dec, [place] [address] [place] [id number] [address] [place] [phone] Dec, Hypertension I10 and Diabete s mellitus E11.9 [place] [address] [place] [id number] [address] [place] [address] Oct, Encounter for immunization Z 23 ; Diabetes mellitus E11.9 ; Hypertension I10 and Cigarette nicotine dependence with nicotine-induced disorder F17.219 [place] [address] [place] [id number] [address] [place] [phone] Oct, Diabetes mellitus E11.9 [place] [address] [place] [id number] [address] [place] [address] Oct, Onychomycosis B35.1 ; DM chuck ro manif type II E11.49 and Hammertoe M20.40 [place] [address] [place] [id number] [address] [place] [address] Jul, Diabetes mellitus E11.9 [place] [address] [facility] [id number] [address] [place] [address] Jul, Onychomycosis B35.1 ; Hammer toe M20.40 and DM neuro manif type II E11.49 [place] [address] [facility] [id number] [address] [place] [address] May, Diabetes mellitus E11.9 [place] [address] [place] [id number] [place] [address] May, Diabetes mellitus E11.9 [place] [address] [address] Nov, Diabetes mellitus E11.9 ; Hy pertension I10 ; Reactive depression F32.9 and Encounter for immunization Z23 [place] [address] [place] [id number] [place] [address] Oct, Ulcer of other part of foot L97.509 [place] [address] [address] Sep, Onychomycosis B35.1 ; Ulcer of heel, left, with unspecified severity L97.429 and DM neuro manif type II E11.49 [place] [id number] [place] [address] Sep, [place] [address] [place] [id number] [place] [address] Sep, Ulcer of heel, left, with un specified severity L97.429 [place] [address] [place] [id number] [address] [place] [address] Aug, Onychomycosis B35.1 ; Ulcer of heel, left, with unspecified severity L97.429 and DM neuro manif type II E11.49 [place] [address] [place] [id number] [address] [place] [address] Jul, Diabetes mellitus E11.9 ; Hy pertension I10 ; Cigarette nicotine dependence with nicotine-induced disorder F17.219 and CAD (coronary artery disease) I25.10 [facility] [address] [id number] [address] [place] [address] Jul, Left leg claudication I73.9 ; Right leg claudication I73.9 ; CAD (coronary artery disease) I25.10 ; Hypertension I10 and Hyperlipidemia E78.5 [facility] [address] [facility] [id number] [address] [place] [address] Jul, Ulcer of heel, left, with un specified severity L97.429 and DM neuro manif type II E11.49 [facility] [address] [id number] [address] [place] [address] June, Ulcer of heel, left, with un specified severity L97.429 and Ulcer of other part of foot L97.509 [place] [address] [facility] [id number] [address] [place] [address] June, Ulcer of heel, left, with un specified severity L97.429 and Ulcer of foot, left, with unspecified severity L97.529 [place] [address] [facility] [id number] [address] [place] [address] May, [facility] [address] [facility] [id number] [address] [place] [address] May, [facility] [address] [facility] [id number] [address] [place] [address] Apr, DM neuro manif type II E11.4 9 ; Hypertension I10 and Sleep apnea in adult G47.33 [facility] [address] [facility] [id number] [address] [place] [address] Apr, [facility] [address] [id number] [address] [place] [address] Apr, Ulcer of foot L97.509 and DM neuro manif type II E11.49 [facility] [address] [facility] [id number] [address] [place] [address] Apr, Ulcer of other part of foot L97.509 and DM neuro manif type II E11.49 [facility] [address] [address] 12 Apr, 2015 Onychomycosis B35.1 ; Ingrow n toenail L60.0 ; Impaired circulation I99.9 and DM neuro manif type II E11.[address] [address] 08 Mar, 2015 Ulcer of other part of foot L97.509 ; Onychomycosis B35.1 and Diabetes mellitus E11.[address] [address] 19 Dec, 2014 Encounter for immunization Z 23 ; Hypertension I10 and Diabetes mellitus E11.[address] [address] Dec, [address] [address] Dec, CAD (coronary artery disease ) I25.10 ; Hypertension I10 ; Left leg claudication I73.9 and Hyperlipidemia E78.[address] [address] Nov, Onychomycosis B35.1 and Vin ertoe M20.[address] [address] Sep, Coronary atherosclerosis of unspecified type of vessel, kaw or graft 414.[address] [address] Sep, Coronary atherosclerosis of unspecified type of vessel, kaw or graft 414.00 and Diabetes 250.[address] [address] May, [address] [address] May, [place] [address] [address] Apr, [facility] [address] [id number] [address] [place] [address], [place] [id number] Apr, [facility] [address] [id number] [address] [place] [address], [place] [id number] Apr, [facility] [address] [id number] [address] [place] [address], [place] [id number] Apr, [facility] [address] [id number] [address] [place] [address], [place] [id number] Mar, [facility] [address] [id number] [address] [place] [address], [place] [id number] Mar, [facility] [address] [id number] [address] [place] [address], [place] [id number] Jan, [facility] [address] [id number] [address] [place] [address], [place] [id number] Jan, [facility] [address] [id number] [address] [place] [address], [place] [id number] Jan, [facility] [address] [id number] [address] [place] [address], [place] [id number] Jan, [facility] [address] [id number] [address] [place] [address], [place] [id number] Jan, [facility] [address] [id number] [address] [place] [address], [place] [id number] Jan, [facility] [address] [id number] [address] [place] [address], [place] [id number] Jan, [facility] [address] [id number] [address] [place] [address], [place] [id number] Jan, [facility] [address] [id number] [address] [place] [address], [place] [id number] Jan, [facility] [address] [id number] [address] [place] [address], [place] [id number] Jan, [facility] [address] [id number] [address] [place] [address] Jan, [facility] [address] [id number] [address] [place] [address], [place] [id number] Nov, [facility] [address] [id number] [address] [place] [address], [place] [id number] Nov, [facility] [address] [id number] [address] [place] [address], [place] [id number] Nov, [facility] [address] [id number] [address] [place] [address], [place] [id number] Nov, [facility] [address] [id number] [address] [place] [address], [place] [id number] Nov, [facility] [address] [id number] [address] [place] [address], [place] [id number] Nov, [facility] [address] [id number] [address] [place] [address], [place] [id number] Oct, [facility] [address] [id number] [address] [place] [address], [place] [id number] Oct, [facility] [address] [id number] [address] [place] [address], [place] [id number] Oct, [facility] [address] [id number] [address] [place] [address], [place] [id number] Oct, [facility] [address] [id number] [address] [place] [address], [place] [id number] Oct, [facility] [address] [id number] [address] [place] [address], [place] [id number] Oct, [facility] [address] [id number] [address] [place] [address], [place] [id number] Sep, [facility] [address] [id number] [address] [place] [address], [place] [id number] Sep, [facility] [address] [id number] [address] [place] [address], [place] [id number] Sep, [facility] [address] [id number] [facility] [place] [id number] Sep, [facility] [address] [id number] [facility] [place] [id number] Sep, [facility] [address] [id number] [facility] [place] [id number] Sep, [facility] [address] [id number] [address] [place] [address], [place] [id number] Aug, [facility] [address] [id number] [address] [place] [address], [place] [id number] Aug, [facility] [address] [id number] [address] [place] [address], [place] [id number] Aug, [facility] [address] [id number] [address] [place] [address], [place] [id number] Aug, [facility] [address] [id number] [address] [place] [address], [place] [id number] Aug, [facility] [address] [id number] [address] [place] [address], [place] [id number] Aug, [facility] [address] [id number] [address] [place] [address], [place] [id number] Jul, [facility] [address] [id number] [address] [place] [address], [place] [id number] Jul, [facility] [address] [id number] [address] [place] [address], [place] [id number] Jul, [facility] [address] [id number] [address] [place] [address], [place] [id number] Jul, [facility] [address] [id number] [address] [place] [address], [place] [id number] June, [facility] [address] [id number] [address] [place] [address], [place] [id number] June, [facility] [address] [id number] [address] [place] [address], [place] [id number] June, [facility] [address] [id number] [address] [place] [address], [place] [id number] June, [facility] [address] [id number] [address] [place] [address], [place] [id number] May, [facility] [address] [id number] [address] [place] [address], [place] [id number] May, [facility] [address] [id number] [address] [place] [address], [place] [id number] May, [facility] [address] [id number] [address] [place] [address], [place] [id number] May, [facility] [address] [id number] [address] [place] [address], [place] [id number] May, [facility] [address] [id number] [address] [place] [address], [place] [id number] May, [facility] [address] [id number] [address] [place] [address], [place] [id number] Apr, [facility] [address] [id number] [address] [place] [address], [place] [id number] Apr, [facility] [address] [id number] [address] [place] [address], [place] [id number] Apr, [facility] [address] [id number] [address] [place] [address], [place] [id number] Apr, [facility] [address] [id number] [address] [place] [address], [place] [id number] Apr, [facility] [address] [id number] [address] [place] [address], [place] [id number] Apr, [facility] [address] [id number] [address] [place] [address], [place] [id number] Apr, [facility] [address] [id number] [address] [place] [address], [place] [id number] Jan, [facility] [address] [id number] [address] [place] [address], [place] [id number] Jan, [facility] [address] [id number] [address] [place] [address], [place] [id number] Jan, [facility] [address] [id number] [address] [place] [address], [place] [id number] Jan, [facility] [address] [id number] [address] [place] [address], [place] [id number] Jan, [facility] [address] [id number] [address] [place] [address], [place] [id number] Jan, [facility] [address] [id number] [address] [place] [address], [place] [id number] Dec, [facility] [address] [id number] [address] [place] [address], [place] [id number] Dec, [facility] [address] [id number] [address] [place] [address], [place] [id number] Dec, [facility] [address] [id number] [address] [place] [address], [place] [id number] Dec, [facility] [address] [id number] [address] [place] [address], [place] [id number] Dec, [facility] [address] [id number] [address] [place] [address], [place] [id number] Dec, [facility] [address] [id number] [address] [place] [address], [place] [id number] Nov, [facility] [address] [id number] [address] [place] [address], [place] [id number] Oct, [facility] [address] [id number] [address] [place] [address], [place] [id number] Oct, [facility] [address] [id number] [address] [place] [address], [place] [id number] Aug, [facility] [address] [id number] [address] [place] [address], [place] [id number] Aug, [facility] [address] [id number] [address] [place] [address], [place] [id number] Jul, [facility] [address] [id number] [address] [place] [address], [place] [id number] June, [facility] [address] [id number] [address] [place] [address], [place] [id number] Apr, [facility] [address] [id number] [address] [place] [address], [place] [id number] Apr, [facility] [address] [id number] [address] [place] [address], [place] [id number] Apr, [facility] [address] [id number] [address] [place] [address], [place] [id number] Apr, [facility] [address] [id number] [address] [place] [address], [place] [id number] Mar, [facility] [address] [id number] [address] [place] [address], [place] [id number] Jan, [facility] [address] [id number] [address] [place] [address], [place] [id number] Jan, [facility] [address] [id number] [address] [place] [address], [place] [id number] Jan, [facility] [address] [id number] [address] [place] [address], [place] [id number] Jan, [facility] [address] [id number] [address] [place] [address], [place] [id number] Jan, [facility] [address] [id number] [address] [place] [address], [place] [id number] Jan, [facility] [address] [id number] [address] [place] [address], [place] [id number] Jan, [facility] [address] [id number] [address] [place] [address], [place] [id number] Jan, [facility] [address] [id number] [address] [place] [address], [place] [id number] 16 Dec, 2011 [facility] [address] [id number] [address] [place] [address], [place] [id number] 16 Dec, 2011 [facility] [address] [id number] [address] [place] [address], [place] [id number] 16 Dec, 2011 [facility] [address] [id number] [address] [place] [address], [place] [id number] 16 Dec, 2011 [facility] [address] [id number] [address] [place] [address], [place] [id number] 17 Nov, 2011 [facility] [address] [id number] [address] [place] [address], [place] [id number] 24 Oct, 2011 [facility] [address] [id number] [address] [place] [address], [place] [id number] 14 Aug, 2011 [facility] [address] [id number] [address] [place] [address], [place] [id number] 14 Aug, 2011 [facility] [address] [id number] [address] [place] [address], [place] [id number] 14 Aug, 2011 [facility] [facility] [address] [id number] [address] [place] [address], [place] [id number] 13 Aug, 2011 [facility] [address] [id number] [address] [place] [address], [place] [id number] 13 Aug, 2011 [facility] [address] [id number] [address] [place] [address], [place] [id number] 20 May, 2011 [facility] [address] [id number] [address] [place] [address], [place] [id number] 16 Apr, 2011 [facility] [address] [id number] [address] [place] [address], [place] [id number] 16 Apr, 2011 [facility] [address] [id number] [address] [place] [address], [place] [id number] Mar, [facility] [address] [id number] [address] [place] [address], [place] [id number] Mar, [facility] [address] [facility] [id number] [address] [place] [id number] Dec, [facility] [address] [facility] [id number] [address] [place] [id number] Dec, [facility] [address] [facility] [id number] [address] [place] [id number] Dec, IMMUNIZATIONS No Known Immunizations SOCIAL HISTORY [...]
--- OUTSIDE RECORDS SUMMARY | 2019-06-21 16:30 | XMS REPORT ---
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 Name Role Phone ELVIN ABDI Unavailable PROBLEMS Type Condition ICD9-CM Code ASD55-BZ Code Onset Dates Condition S tatus SNOMED Code Problem Hyperlipidemia E78.5 Active 29079 004 Problem Left leg claudication I73.9 Active 143679323 Problem DM neuro manif type II E11.49 Active 75466932 Problem Impaired circulation I99.9 Active 42343905 Problem Reactive depression F32.9 Active 42041250 Problem Cigarette nicotine dependence with nicotine-induced di sorder F17.219 Active 24669300 Problem 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 Active 45087 005 Problem Carotid artery disease I77.9 Active 082307053 Problem Hypercholesteremia E78.00 Active 2 40430180 Problem Onychomycosis B35.1 Active 353979 008 Problem Arthritis M19.90 Active 1507059 Problem Panlobular emphysema J43.1 Active 8198121 Problem Hammertoe M20.40 Active 423483144 Problem Type 2 diabetes mellitus E11.9 Activ e 23257918 Problem Essential (primary) hypertension I10 Active 12763465 Problem Tobacco abuse Z72.0 Active 731260 05 Problem PAD (peripheral artery disease) I73.9 Active 289176070 ALLERGIES No Information ENCOUNTERS Encounter Location Date Diagnosis [facility] [address] [place] [address] Jan, [facility] [address] [facility] [id number] [address] [place] [address] Jan, [facility] [address] [place] [address] Oct, Type 2 diabetes mellitus E11.9 and Essen tial (primary) hypertension I10 [facility] [address] [facility] [id number] [address] [place] [address] Oct, Onychomycosis B35.1 ; Diabet es mellitus E11.9 and Impaired circulation I99.[address] [address] Oct, Diabetes mellitus E11.9 and Hypertension I10 [address] [address] Oct, Hypertension I10 [address] [address] Sep, [facility] [address] [id number] [address] [place] [address] Sep, [address] [address] Aug, [facility] [address] [id number] [address] [place] [address] Aug, Panlobular emphysema J43.[address] [address] Aug, Panlobular emphysema J43.[address] [address] Aug, Panlobular emphysema J43.[address] [address] Jul, Encounter for screening for malignant ne oplasm of colon Z12.11 ; CAD (coronary artery disease) I25.10 ; Cigarette nicotine dependence with nicotine- induced disorder F17.219 ; Essential (primary) hypertension I10 ; Panlobular emphysema J43.1 and DM neuro manif type II E11.[address] [address] Jul, Type 2 diabetes mellitus E11.[address] [address] Jul, [facility] [address] [id number] [address] [place] [address] Jul, Onychomycosis B35.1 and DM n euro manif type II E11.49 [place] [id number] [facility] [id number] [address] [place] [address] June, Diabetes mellitus E11.[address] [address] May, [address] [address] Apr, Type 2 diabetes mellitus E11.9 ; [...] M20.40 ; Arthritis M19.90 and Hypoglycemia E16.2 [place] [address] [facility] [id number] [address] [place] [address] Apr, Diabetes mellitus E11.9 [place] [address] [facility] [id number] [address] [place] [address] Apr, Onychomycosis B35.1 ; Impair ed circulation I99.9 and DM neuro manif type II E11.49 [place] [address] [facility] [id number] [address] [place] [address] Jan, Diabetes mellitus E11.9 ; Hy pertension I10 and Encounter for immunization Z23 [place] [address] [facility] [id number] [address] [place] [address] Jan, Diabetes mellitus E11.9 [place] [address] [facility] [id number] [address] [place] [address] Jan, [place] [address] [facility] [id number] [address] [place] [address] Jan, [place] [address] [facility] [id number] [address] [place] [address] Oct, Onychomycosis B35.1 ; DM chuck ro manif type II E11.49 and Impaired circulation I99.9 [facility] [address] [facility] [id number] [address] [place] [address] Sep, [facility] [address] [facility] [id number] [address] [place] [address] Aug, Hypoglycemia E16.2 [facility] [address] [facility] [id number] [address] [place] [address] Aug, [facility] [address] [facility] [id number] [address] [place] [address] Jul, [facility] [address] [place] [id number] [address] [place] [address] Jul, Elevated blood sugar R73.9 a nd Neck pain M54.2 [place] [address] [place] [id number] [address] [place] [address] Jul, [facility] [address] [place] [id number] [address] [place] [address] Jul, Onychomycosis B35.1 and DM n euro manif type II E11.49 [facility] [address] [facility] [id number] [address] [place] [address] Jul, [place] [address] [place] [id number] [address] [place] [address] June, Hyperlipidemia E78.5 [facility] [address] [facility] [id number] [address] [place] [address] June, Diabetes mellitus E11.9 ; CA D (coronary artery disease) I25.10 ; Arthritis M19.90 and Hyperlipidemia E78.5 [facility] [address] [facility] [id number] [address] [place] [address] June, [facility] [address] [place] [id number] [address] [place] [address] Apr, Onychomycosis B35.1 ; DM chuck ro manif type II E11.49 and Hammertoe M20.40 [place] [address] [facility] [id number] [address] [place] [address] Apr, Diabetes mellitus E11.9 and Hypertension I10 [place] [address] [place] [id number] [address] [place] [address] Mar, Hypertension I10 and Diabete s mellitus E11.9 [place] [address] [facility] [id number] [address] [place] [address] Mar, Hypertension I10 and Diabete s mellitus E11.9 [place] [address] [place] [id number] [address] [place] [address] Jan, Onychomycosis B35.1 and DM n euro manif type II E11.49 [place] [address] [place] [id number] [address] [place] [address] Dec, [place] [address] [place] [id number] [address] [place] [address] Dec, [place] [address] [place] [id number] [address] [place] [address] Dec, Hypertension I10 and Diabete s mellitus E11.9 [place] [address] [place] [id number] [address] [place] [address] Oct, Encounter for immunization Z 23 ; Diabetes mellitus E11.9 ; Hypertension I10 and Cigarette nicotine dependence with nicotine-induced disorder F17.219 [place] [address] [place] [id number] [address] [place] [address] Oct, Diabetes mellitus E11.9 [place] [address] [place] [id number] [address] [place] [address] Oct, Onychomycosis B35.1 ; DM chuck ro manif type II E11.49 and Hammertoe M20.40 [place] [address] [place] [id number] [address] [place] [address] Jul, Diabetes mellitus E11.9 [place] [address] [facility] [id number] [address] [place] [address] Jul, Onychomycosis B35.1 ; Hammer toe M20.40 and DM neuro manif type II E11.49 [place] [address] [facility] [id number] [address] [place] [address] May, Diabetes mellitus E11.9 [place] [address] [place] [id number] [place] [address] May, Diabetes mellitus E11.9 [place] [address] [address] Nov, Diabetes mellitus E11.9 ; Hy pertension I10 ; Reactive depression F32.9 and Encounter for immunization Z23 [place] [address] [place] [id number] [place] [address] Oct, Ulcer of other part of foot L97.509 [place] [address] [address] Sep, Onychomycosis B35.1 ; Ulcer of heel, left, with unspecified severity L97.429 and DM neuro manif type II E11.49 [place] [id number] [place] [address] Sep, [place] [address] [place] [id number] [place] [address] Sep, Ulcer of heel, left, with un specified severity L97.429 [place] [address] [place] [id number] [address] [place] [address] Aug, Onychomycosis B35.1 ; Ulcer of heel, left, with unspecified severity L97.429 and DM neuro manif type II E11.49 [place] [address] [place] [id number] [address] [place] [address] Jul, Diabetes mellitus E11.9 ; Hy pertension I10 ; Cigarette nicotine dependence with nicotine-induced disorder F17.219 and CAD (coronary artery disease) I25.10 [facility] [address] [id number] [address] [place] [address] Jul, Left leg claudication I73.9 ; Right leg claudication I73.9 ; CAD (coronary artery disease) I25.10 ; Hypertension I10 and Hyperlipidemia E78.5 [facility] [address] [facility] [id number] [address] [place] [address] Jul, Ulcer of heel, left, with un specified severity L97.429 and DM neuro manif type II E11.49 [facility] [address] [id number] [address] [place] [address] June, Ulcer of heel, left, with un specified severity L97.429 and Ulcer of other part of foot L97.509 [place] [address] [facility] [id number] [address] [place] [address] June, Ulcer of heel, left, with un specified severity L97.429 and Ulcer of foot, left, with unspecified severity L97.529 [place] [address] [facility] [id number] [address] [place] [address] May, [facility] [address] [facility] [id number] [address] [place] [address] May, [facility] [address] [facility] [id number] [address] [place] [address] Apr, DM neuro manif type II E11.4 9 ; Hypertension I10 and Sleep apnea in adult G47.33 [facility] [address] [facility] [id number] [address] [place] [address] Apr, [facility] [address] [id number] [address] [place] [address] Apr, Ulcer of foot L97.509 and DM neuro manif type II E11.49 [facility] [address] [facility] [id number] [address] [place] [address] Apr, Ulcer of other part of foot L97.509 and DM neuro manif type II E11.49 [facility] [address] [address] 12 Apr, 2015 Onychomycosis B35.1 ; Ingrow n toenail L60.0 ; Impaired circulation I99.9 and DM neuro manif type II E11.[address] [address] 08 Mar, 2015 Ulcer of other part of foot L97.509 ; Onychomycosis B35.1 and Diabetes mellitus E11.[address] [address] 19 Dec, 2014 Encounter for immunization Z 23 ; Hypertension I10 and Diabetes mellitus E11.[address] [address] Dec, [address] [address] Dec, CAD (coronary artery disease ) I25.10 ; Hypertension I10 ; Left leg claudication I73.9 and Hyperlipidemia E78.[address] [address] Nov, Onychomycosis B35.1 and Vin ertoe M20.[address] [address] Sep, Coronary atherosclerosis of unspecified type of vessel, little shell tribe or graft 414.[address] [address] Sep, Coronary atherosclerosis of unspecified type of vessel, little shell tribe or graft 414.00 and Diabetes 250.[address] [address] May, [address] [address] May, [place] [address] [address] Apr, [facility] [address] [id number] [address] [place] [address], [place] [address] Apr, [facility] [address] [id number] [address] [place] [address], [place] [address] Apr, [facility] [address] [id number] [address] [place] [address], [place] [address] Apr, [facility] [address] [id number] [address] [place] [address], [place] [address] Mar, [facility] [address] [id number] [address] [place] [address], [place] [address] Mar, [facility] [address] [id number] [address] [place] [address], [place] [address] Jan, [facility] [address] [id number] [address] [place] [address], [place] [address] Jan, [facility] [address] [id number] [address] [place] [address], [place] [address] Jan, [facility] [address] [id number] [address] [place] [address], [place] [address] Jan, [facility] [address] [id number] [address] [place] [address], [place] [address] Jan, [facility] [address] [id number] [address] [place] [address], [place] [address] Jan, [facility] [address] [id number] [address] [place] [address], [place] [address] Jan, [facility] [address] [id number] [address] [place] [address], [place] [address] Jan, [facility] [address] [id number] [address] [place] [address], [place] [address] Jan, [facility] [address] [id number] [address] [place] [address], [place] [address] Jan, [facility] [address] [id number] [address] [place] [address] Jan, [facility] [address] [id number] [address] [place] [address], [place] [address] Nov, [facility] [address] [id number] [address] [place] [address], [place] [address] Nov, [facility] [address] [id number] [address] [place] [address], [place] [address] Nov, [facility] [address] [id number] [address] [place] [address], [place] [address] Nov, [facility] [address] [id number] [address] [place] [address], [place] [address] Nov, [facility] [address] [id number] [address] [place] [address], [place] [address] Nov, [facility] [address] [id number] [address] [place] [address], [place] [address] Oct, [facility] [address] [id number] [address] [place] [address], [place] [address] Oct, [facility] [address] [id number] [address] [place] [address], [place] [address] Oct, [facility] [address] [id number] [address] [place] [address], [place] [address] Oct, [facility] [address] [id number] [address] [place] [address], [place] [address] Oct, [facility] [address] [id number] [address] [place] [address], [place] [address] Oct, [facility] [address] [id number] [address] [place] [address], [place] [address] Sep, [facility] [address] [id number] [address] [place] [address], [place] [address] Sep, [facility] [address] [id number] [address] [place] [address], [place] [address] Sep, [facility] [address] [id number] [facility] [place] [address] Sep, [facility] [address] [id number] [facility] [place] [address] Sep, [facility] [address] [id number] [facility] [place] [address] Sep, [facility] [address] [id number] [address] [place] [address], [place] [address] Aug, [facility] [address] [id number] [address] [place] [address], [place] [address] Aug, [facility] [address] [id number] [address] [place] [address], [place] [address] Aug, [facility] [address] [id number] [address] [place] [address], [place] [address] Aug, [facility] [address] [id number] [address] [place] [address], [place] [address] Aug, [facility] [address] [id number] [address] [place] [address], [place] [address] Aug, [facility] [address] [id number] [address] [place] [address], [place] [address] Jul, [facility] [address] [id number] [address] [place] [address], [place] [address] Jul, [facility] [address] [id number] [address] [place] [address], [place] [address] Jul, [facility] [address] [id number] [address] [place] [address], [place] [address] Jul, [facility] [address] [id number] [address] [place] [address], [place] [address] June, [facility] [address] [id number] [address] [place] [address], [place] [address] June, [facility] [address] [id number] [address] [place] [address], [place] [address] June, [facility] [address] [id number] [address] [place] [address], [place] [address] June, [facility] [address] [id number] [address] [place] [address], [place] [address] May, [facility] [address] [id number] [address] [place] [address], [place] [address] May, [facility] [address] [id number] [address] [place] [address], [place] [address] May, [facility] [address] [id number] [address] [place] [address], [place] [address] May, [facility] [address] [id number] [address] [place] [address], [place] [address] May, [facility] [address] [id number] [address] [place] [address], [place] [address] May, [facility] [address] [id number] [address] [place] [address], [place] [address] Apr, [facility] [address] [id number] [address] [place] [address], [place] [address] Apr, [facility] [address] [id number] [address] [place] [address], [place] [address] Apr, [facility] [address] [id number] [address] [place] [address], [place] [address] Apr, [facility] [address] [id number] [address] [place] [address], [place] [address] Apr, [facility] [address] [id number] [address] [place] [address], [place] [address] Apr, [facility] [address] [id number] [address] [place] [address], [place] [address] Apr, [facility] [address] [id number] [address] [place] [address], [place] [address] Jan, [facility] [address] [id number] [address] [place] [address], [place] [address] Jan, [facility] [address] [id number] [address] [place] [address], [place] [address] Jan, [facility] [address] [id number] [address] [place] [address], [place] [address] Jan, [facility] [address] [id number] [address] [place] [address], [place] [address] Jan, [facility] [address] [id number] [address] [place] [address], [place] [address] Jan, [facility] [address] [id number] [address] [place] [address], [place] [address] Dec, [facility] [address] [id number] [address] [place] [address], [place] [address] Dec, [facility] [address] [id number] [address] [place] [address], [place] [address] Dec, [facility] [address] [id number] [address] [place] [address], [place] [address] Dec, [facility] [address] [id number] [address] [place] [address], [place] [address] Dec, [facility] [address] [id number] [address] [place] [address], [place] [address] Dec, [facility] [address] [id number] [address] [place] [address], [place] [address] Nov, [facility] [address] [id number] [address] [place] [address], [place] [address] Oct, [facility] [address] [id number] [address] [place] [address], [place] [id number] Oct, [facility] [address] [id number] [address] [place] [address], [place] [address] Aug, [facility] [address] [id number] [address] [place] [address], [place] [id number] Aug, [facility] [address] [id number] [address] [place] [address], [place] [address] Jul, [facility] [address] [id number] [address] [place] [address], [place] [address] June, [facility] [address] [id number] [address] [place] [address], [place] [address] Apr, [facility] [address] [id number] [address] [place] [address], [place] [address] Apr, [facility] [address] [id number] [address] [place] [address], [place] [address] Apr, [facility] [address] [id number] [address] [place] [address], [place] [id number] Apr, [facility] [address] [id number] [address] [place] [address], [place] [address] Mar, [facility] [address] [id number] [address] [place] [address], [place] [address] Jan, [facility] [address] [id number] [address] [place] [address], [place] [address] Jan, [facility] [address] [id number] [address] [place] [address], [place] [address] Jan, [facility] [address] [id number] [address] [place] [address], [place] [address] Jan, [facility] [address] [id number] [address] [place] [address], [place] [id number] Jan, [facility] [address] [id number] [address] [place] [address], [place] [address] Jan, [facility] [address] [id number] [address] [place] [address], [place] [id number] Jan, [facility] [address] [id number] [address] [place] [address], [place] [address] Jan, [facility] [address] [id number] [address] [place] [address], [place] [id number] 16 Dec, 2011 [facility] [address] [id number] [address] [place] [address], [place] [id number] 16 Dec, 2011 [facility] [address] [id number] [address] [place] [address], [place] [id number] 16 Dec, 2011 [facility] [address] [id number] [address] [place] [address], [place] [id number] 16 Dec, 2011 [facility] [address] [id number] [address] [place] [address], [place] [id number] 17 Nov, 2011 [facility] [address] [id number] [address] [place] [address], [place] [id number] 24 Oct, 2011 [facility] [address] [id number] [address] [place] [address], [place] [id number] 14 Aug, 2011 [facility] [address] [id number] [address] [place] [address], [place] [id number] 14 Aug, 2011 [facility] [address] [id number] [address] [place] [address], [place] [id number] 14 Aug, 2011 [facility] [address] [id number] [address] [place] [address], [place] [id number] 13 Aug, 2011 [facility] [address] [id number] [address] [place] [address], [place] [address] 13 Aug, 2011 [facility] [address] [id number] [address] [place] [address], [place] [id number] 20 May, 2011 [facility] [address] [id number] [address] [place] [address], [place] [id number] 16 Apr, 2011 [facility] [address] [id number] [address] [place] [address], [place] [id number] 16 Apr, 2011 [facility] [address] [id number] [address] [place] [address], [place] [id number] Mar, [facility] [address] [id number] [address] [place] [address], [place] [id number] Mar, [facility] [address] [facility] [id number] [address] [place] [id number] Dec, [facility] [address] [facility] [id number] [address] [place] [id number] Dec, [facility] [address] [facility] [id number] [address] [place] [id number] Dec, IMMUNIZATIONS No Known Immunizations SOCIAL HISTORY [...]
--- OUTSIDE RECORDS SUMMARY | 2019-06-21 16:30 | XMS REPORT ---
Author Author Nick ABDI Organization [facility] Address [address] [place] [address] Care Team Providers Care Client Solutions Specialist Name Role Phone ELVIN ABDI Unavailable PROBLEMS Type Condition ICD9-CM Code GDN26-DH Code Onset Dates Condition S tatus SNOMED Code Problem Hyperlipidemia E78.5 Active 06973 004 Problem Left leg claudication I73.9 Active 650847262 Problem DM neuro manif type II E11.49 Active 75903940 Problem Impaired circulation I99.9 Active 70306766 Problem Reactive depression F32.9 Active 89015005 Problem Cigarette nicotine dependence with nicotine-induced di sorder F17.219 Active 14671798 Problem 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 Active 37854 005 Problem Carotid artery disease I77.9 Active 148076659 Problem Hypercholesteremia E78.00 Active 2 78146169 Problem Onychomycosis B35.1 Active 163390 008 Problem Arthritis M19.90 Active 8483708 Problem Panlobular emphysema J43.1 Active 8898735 Problem Hammertoe M20.40 Active 400673640 Problem Type 2 diabetes mellitus E11.9 Activ e 18327450 Problem Essential (primary) hypertension I10 Active 95920102 Problem Tobacco abuse Z72.0 Active 114201 05 Problem PAD (peripheral artery disease) I73.9 Active 092588288 ALLERGIES No Information ENCOUNTERS Encounter Location Date Diagnosis [facility] [address] [place] [address] Jan, [facility] [address] [facility] [id number] [address] [place] [address] Jan, [facility] [address] [place] [address] Oct, Type 2 diabetes mellitus E11.9 and Essen tial (primary) hypertension I10 [facility] [address] [facility] [id number] [address] [place] [address] Oct, Onychomycosis B35.1 ; Diabet es mellitus E11.9 and Impaired circulation I99.[address] [address] Oct, Diabetes mellitus E11.9 and Hypertension I10 [address] [address] Oct, Hypertension I10 [address] [address] Sep, [facility] [address] [id number] [address] [place] [address] Sep, [address] [address] Aug, [facility] [address] [id number] [address] [place] [address] Aug, Panlobular emphysema J43.[address] [address] Aug, Panlobular emphysema J43.[address] [address] Aug, Panlobular emphysema J43.[address] [address] Jul, Encounter for screening for malignant ne oplasm of colon Z12.11 ; CAD (coronary artery disease) I25.10 ; Cigarette nicotine dependence with nicotine- induced disorder F17.219 ; Essential (primary) hypertension I10 ; Panlobular emphysema J43.1 and DM neuro manif type II E11.[address] [address] Jul, Type 2 diabetes mellitus E11.[address] [address] Jul, [facility] [address] [id number] [address] [place] [address] Jul, Onychomycosis B35.1 and DM n euro manif type II E11.49 [place] [address] [facility] [id number] [address] [place] [address] June, Diabetes mellitus E11.[address] [address] May, [address] [address] Apr, Type 2 diabetes mellitus E11.9 ; [...] M20.40 ; Arthritis M19.90 and Hypoglycemia E16.2 [place] [address] [facility] [id number] [address] [place] [address] Apr, Diabetes mellitus E11.9 [place] [address] [facility] [id number] [address] [place] [address] Apr, Onychomycosis B35.1 ; Impair ed circulation I99.9 and DM neuro manif type II E11.49 [place] [address] [facility] [id number] [address] [place] [address] Jan, Diabetes mellitus E11.9 ; Hy pertension I10 and Encounter for immunization Z23 [place] [address] [facility] [id number] [address] [place] [address] Jan, Diabetes mellitus E11.9 [place] [address] [facility] [id number] [address] [place] [address] Jan, [place] [address] [facility] [id number] [address] [place] [address] Jan, [place] [address] [facility] [id number] [address] [place] [address] Oct, Onychomycosis B35.1 ; DM chuck ro manif type II E11.49 and Impaired circulation I99.9 [facility] [address] [facility] [id number] [address] [place] [address] Sep, [facility] [address] [facility] [id number] [address] [place] [address] Aug, Hypoglycemia E16.2 [facility] [address] [facility] [id number] [address] [place] [address] Aug, [facility] [address] [facility] [id number] [address] [place] [address] Jul, [facility] [address] [place] [id number] [address] [place] [address] Jul, Elevated blood sugar R73.9 a nd Neck pain M54.2 [place] [address] [place] [id number] [address] [place] [address] Jul, [facility] [address] [place] [id number] [address] [place] [address] Jul, Onychomycosis B35.1 and DM n euro manif type II E11.49 [facility] [address] [facility] [id number] [address] [place] [address] Jul, [place] [address] [place] [id number] [address] [place] [address] June, Hyperlipidemia E78.5 [facility] [address] [facility] [id number] [address] [place] [address] June, Diabetes mellitus E11.9 ; CA D (coronary artery disease) I25.10 ; Arthritis M19.90 and Hyperlipidemia E78.5 [facility] [address] [facility] [id number] [address] [place] [address] June, [facility] [address] [place] [id number] [address] [place] [address] Apr, Onychomycosis B35.1 ; DM chuck ro manif type II E11.49 and Hammertoe M20.40 [place] [address] [facility] [id number] [address] [place] [address] Apr, Diabetes mellitus E11.9 and Hypertension I10 [place] [address] [place] [id number] [address] [place] [address] Mar, Hypertension I10 and Diabete s mellitus E11.9 [place] [address] [facility] [id number] [address] [place] [address] Mar, Hypertension I10 and Diabete s mellitus E11.9 [place] [address] [place] [id number] [address] [place] [address] Jan, Onychomycosis B35.1 and DM n euro manif type II E11.49 [place] [address] [place] [id number] [address] [place] [address] Dec, [place] [address] [place] [id number] [address] [place] [address] Dec, [place] [address] [place] [id number] [address] [place] [address] Dec, Hypertension I10 and Diabete s mellitus E11.9 [place] [address] [place] [id number] [address] [place] [address] Oct, Encounter for immunization Z 23 ; Diabetes mellitus E11.9 ; Hypertension I10 and Cigarette nicotine dependence with nicotine-induced disorder F17.219 [place] [address] [place] [id number] [address] [place] [address] Oct, Diabetes mellitus E11.9 [place] [address] [place] [id number] [address] [place] [address] Oct, Onychomycosis B35.1 ; DM chuck ro manif type II E11.49 and Hammertoe M20.40 [place] [address] [place] [id number] [address] [place] [address] Jul, Diabetes mellitus E11.9 [place] [address] [facility] [id number] [address] [place] [address] Jul, Onychomycosis B35.1 ; Hammer toe M20.40 and DM neuro manif type II E11.49 [place] [address] [facility] [id number] [address] [place] [address] May, Diabetes mellitus E11.9 [place] [address] [place] [id number] [place] [address] May, Diabetes mellitus E11.9 [place] [address] [address] Nov, Diabetes mellitus E11.9 ; Hy pertension I10 ; Reactive depression F32.9 and Encounter for immunization Z23 [place] [address] [place] [id number] [place] [address] Oct, Ulcer of other part of foot L97.509 [place] [address] [address] Sep, Onychomycosis B35.1 ; Ulcer of heel, left, with unspecified severity L97.429 and DM neuro manif type II E11.49 [place] [id number] [place] [address] Sep, [place] [address] [place] [id number] [place] [address] Sep, Ulcer of heel, left, with un specified severity L97.429 [place] [address] [place] [id number] [address] [place] [address] Aug, Onychomycosis B35.1 ; Ulcer of heel, left, with unspecified severity L97.429 and DM neuro manif type II E11.49 [place] [address] [place] [id number] [address] [place] [address] Jul, Diabetes mellitus E11.9 ; Hy pertension I10 ; Cigarette nicotine dependence with nicotine-induced disorder F17.219 and CAD (coronary artery disease) I25.10 [facility] [address] [id number] [address] [place] [address] Jul, Left leg claudication I73.9 ; Right leg claudication I73.9 ; CAD (coronary artery disease) I25.10 ; Hypertension I10 and Hyperlipidemia E78.5 [facility] [address] [facility] [id number] [address] [place] [address] Jul, Ulcer of heel, left, with un specified severity L97.429 and DM neuro manif type II E11.49 [facility] [address] [id number] [address] [place] [address] June, Ulcer of heel, left, with un specified severity L97.429 and Ulcer of other part of foot L97.509 [place] [address] [facility] [id number] [address] [place] [address] June, Ulcer of heel, left, with un specified severity L97.429 and Ulcer of foot, left, with unspecified severity L97.529 [place] [address] [facility] [id number] [address] [place] [address] May, [facility] [address] [facility] [id number] [address] [place] [address] May, [facility] [address] [facility] [id number] [address] [place] [address] Apr, DM neuro manif type II E11.4 9 ; Hypertension I10 and Sleep apnea in adult G47.33 [facility] [address] [facility] [id number] [address] [place] [address] Apr, [facility] [address] [id number] [address] [place] [address] Apr, Ulcer of foot L97.509 and DM neuro manif type II E11.49 [facility] [address] [facility] [id number] [address] [place] [address] Apr, Ulcer of other part of foot L97.509 and DM neuro manif type II E11.49 [facility] [address] [address] 12 Apr, 2015 Onychomycosis B35.1 ; Ingrow n toenail L60.0 ; Impaired circulation I99.9 and DM neuro manif type II E11.[address] [address] 08 Mar, 2015 Ulcer of other part of foot L97.509 ; Onychomycosis B35.1 and Diabetes mellitus E11.[address] [address] 19 Dec, 2014 Encounter for immunization Z 23 ; Hypertension I10 and Diabetes mellitus E11.[address] [address] Dec, [address] [address] Dec, CAD (coronary artery disease ) I25.10 ; Hypertension I10 ; Left leg claudication I73.9 and Hyperlipidemia E78.[address] [address] Nov, Onychomycosis B35.1 and Vin ertoe M20.[address] [address] Sep, Coronary atherosclerosis of unspecified type of vessel, [place] or graft 414.[address] [address] Sep, Coronary atherosclerosis of unspecified type of vessel, [place] or graft 414.00 and Diabetes 250.[address] [address] May, [address] [address] May, [place] [address] [address] Apr, [facility] [address] [id number] [address] [place] [address], [place] [address] Apr, [facility] [address] [id number] [address] [place] [address], [place] [address] Apr, [facility] [address] [id number] [address] [place] [address], [place] [address] Apr, [facility] [address] [id number] [address] [place] [address], [place] [address] Mar, [facility] [address] [id number] [address] [place] [address], [place] [address] Mar, [facility] [address] [id number] [address] [place] [address], [place] [address] Jan, [facility] [address] [id number] [address] [place] [address], [place] [address] Jan, [facility] [address] [id number] [address] [place] [address], [place] [address] Jan, [facility] [address] [id number] [address] [place] [address], [place] [address] Jan, [facility] [address] [id number] [address] [place] [address], [place] [address] Jan, [facility] [address] [id number] [address] [place] [address], [place] [address] Jan, [facility] [address] [id number] [address] [place] [address], [place] [address] Jan, [facility] [address] [id number] [address] [place] [address], [place] [address] Jan, [facility] [address] [id number] [address] [place] [address], [place] [address] Jan, [facility] [address] [id number] [address] [place] [address], [place] [address] Jan, [facility] [address] [id number] [address] [place] [address] Jan, [facility] [address] [id number] [address] [place] [address], [place] [address] Nov, [facility] [address] [id number] [address] [place] [address], [place] [address] Nov, [facility] [address] [id number] [address] [place] [address], [place] [address] Nov, [facility] [address] [id number] [address] [place] [address], [place] [address] Nov, [facility] [address] [id number] [address] [place] [address], [place] [address] Nov, [facility] [address] [id number] [address] [place] [address], [place] [address] Nov, [facility] [address] [id number] [address] [place] [address], [place] [address] Oct, [facility] [address] [id number] [address] [place] [address], [place] [address] Oct, [facility] [address] [id number] [address] [place] [address], [place] [address] Oct, [facility] [address] [id number] [address] [place] [address], [place] [address] Oct, [facility] [address] [id number] [address] [place] [address], [place] [address] Oct, [facility] [address] [id number] [address] [place] [address], [place] [address] Oct, [facility] [address] [id number] [address] [place] [address], [place] [address] Sep, [facility] [address] [id number] [address] [place] [address], [place] [address] Sep, [facility] [address] [id number] [address] [place] [address], [place] [address] Sep, [facility] [address] [id number] [facility] [place] [address] Sep, [facility] [address] [id number] [facility] [place] [address] Sep, [facility] [address] [id number] [facility] [place] [address] Sep, [facility] [address] [id number] [address] [place] [address], [place] [address] Aug, [facility] [address] [id number] [address] [place] [address], [place] [address] Aug, [facility] [address] [id number] [address] [place] [address], [place] [address] Aug, [facility] [address] [id number] [address] [place] [address], [place] [address] Aug, [facility] [address] [id number] [address] [place] [address], [place] [address] Aug, [facility] [address] [id number] [address] [place] [address], [place] [address] Aug, [facility] [address] [id number] [address] [place] [address], [place] [address] Jul, [facility] [address] [id number] [address] [place] [address], [place] [address] Jul, [facility] [address] [id number] [address] [place] [address], [place] [address] Jul, [facility] [address] [id number] [address] [place] [address], [place] [address] Jul, [facility] [address] [id number] [address] [place] [address], [place] [address] June, [facility] [address] [id number] [address] [place] [address], [place] [address] June, [facility] [address] [id number] [address] [place] [address], [place] [address] June, [facility] [address] [id number] [address] [place] [address], [place] [address] June, [facility] [address] [id number] [address] [place] [address], [place] [address] May, [facility] [address] [id number] [address] [place] [address], [place] [address] May, [facility] [address] [id number] [address] [place] [address], [place] [address] May, [facility] [address] [id number] [address] [place] [address], [place] [address] May, [facility] [address] [id number] [address] [place] [address], [place] [address] May, [facility] [address] [id number] [address] [place] [address], [place] [address] May, [facility] [address] [id number] [address] [place] [address], [place] [address] Apr, [facility] [address] [id number] [address] [place] [address], [place] [address] Apr, [facility] [address] [id number] [address] [place] [address], [place] [address] Apr, [facility] [address] [id number] [address] [place] [address], [place] [address] Apr, [facility] [address] [id number] [address] [place] [address], [place] [address] Apr, [facility] [address] [id number] [address] [place] [address], [place] [address] Apr, [facility] [address] [id number] [address] [place] [address], [place] [address] Apr, [facility] [address] [id number] [address] [place] [address], [place] [address] Jan, [facility] [address] [id number] [address] [place] [address], [place] [address] Jan, [facility] [address] [id number] [address] [place] [address], [place] [address] Jan, [facility] [address] [id number] [address] [place] [address], [place] [address] Jan, [facility] [address] [id number] [address] [place] [address], [place] [address] Jan, [facility] [address] [id number] [address] [place] [address], [place] [address] Jan, [facility] [address] [id number] [address] [place] [address], [place] [address] Dec, [facility] [address] [id number] [address] [place] [address], [place] [address] Dec, [facility] [address] [id number] [address] [place] [address], [place] [address] Dec, [facility] [address] [id number] [address] [place] [address], [place] [address] Dec, [facility] [address] [id number] [address] [place] [address], [place] [address] Dec, [facility] [address] [id number] [address] [place] [address], [place] [address] Dec, [facility] [address] [id number] [address] [place] [address], [place] [address] Nov, [facility] [address] [id number] [address] [place] [address], [place] [address] Oct, [facility] [address] [id number] [address] [place] [address], [place] [address] Oct, [facility] [address] [id number] [address] [place] [address], [place] [id number] Aug, [facility] [address] [id number] [address] [place] [address], [place] [id number] Aug, [facility] [address] [id number] [address] [place] [address], [place] [id number] Jul, [facility] [address] [id number] [address] [place] [address], [place] [address] June, [facility] [address] [id number] [address] [place] [address], [place] [address] Apr, [facility] [address] [id number] [address] [place] [address], [place] [address] Apr, [facility] [address] [id number] [address] [place] [address], [place] [id number] Apr, [facility] [address] [id number] [address] [place] [address], [place] [id number] Apr, [facility] [address] [id number] [address] [place] [address], [place] [address] Mar, [facility] [address] [id number] [address] [place] [address], [place] [id number] Jan, [facility] [address] [id number] [address] [place] [address], [place] [address] Jan, [facility] [address] [id number] [address] [place] [address], [place] [address] Jan, [facility] [address] [id number] [address] [place] [address], [place] [address] Jan, [facility] [address] [id number] [address] [place] [address], [place] [id number] Jan, [facility] [address] [id number] [address] [place] [address], [place] [address] Jan, [facility] [address] [id number] [address] [place] [address], [place] [id number] Jan, [facility] [address] [id number] [address] [place] [address], [place] [address] Jan, [facility] [address] [id number] [address] [place] [address], [place] [address] 16 Dec, 2011 [facility] [address] [id number] [address] [place] [address], [place] [id number] 16 Dec, 2011 [facility] [address] [id number] [address] [place] [address], [place] [id number] 16 Dec, 2011 [facility] [address] [id number] [address] [place] [address], [place] [id number] 16 Dec, 2011 [facility] [address] [id number] [address] [place] [address], [place] [id number] 17 Nov, 2011 [facility] [address] [id number] [address] [place] [address], [place] [id number] 24 Oct, 2011 [facility] [address] [id number] [address] [place] [address], [place] [id number] 14 Aug, 2011 [facility] [address] [id number] [address] [place] [address], [place] [id number] 14 Aug, 2011 [facility] [address] [id number] [address] [place] [address], [place] [id number] 14 Aug, 2011 [facility] [address] [id number] [address] [place] [address], [place] [id number] 13 Aug, 2011 [facility] [address] [id number] [address] [place] [address], [place] [id number] 13 Aug, 2011 [facility] [address] [id number] [address] [place] [address], [place] [id number] 20 May, 2011 [facility] [facility] [address] [id number] [address] [place] [address], [place] [id number] 16 Apr, 2011 [facility] [address] [id number] [address] [place] [address], [place] [id number] 16 Apr, 2011 [facility] [address] [id number] [address] [place] [address], [place] [id number] Mar, [facility] [address] [id number] [address] [place] [address], [place] [id number] Mar, [facility] [address] [facility] [id number] [address] [place] [id number] Dec, [facility] [address] [facility] [id number] [address] [place] [phone] Dec, [facility] [address] [facility] [id number] [address] [place] [id number] Dec, IMMUNIZATIONS No Known Immunizations SOCIAL HISTORY Never Assessed REASON FOR VISIT PLAN OF CARE VITAL SIGNS MEDICATIONS Unknown Medications RESULTS No Results PROCEDURES Procedure Date Ordered Result Body Site GLYCATED HEMOGLOBIN TEST Mar 13, 2014 INSTRUCTIONS MEDICATIONS ADMINISTERED No Known Medications MEDICAL [...]
--- OUTSIDE RECORDS SUMMARY | 2019-06-21 16:30 | XMS REPORT ---
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 Name Role Phone ELVIN ABDI Unavailable PROBLEMS Type Condition ICD9-CM Code [id number] Code Onset Dates Condition S tatus SNOMED Code Problem Hyperlipidemia E78.5 Active 57938 004 Problem Left leg claudication I73.9 Active 138478936 Problem DM neuro manif type II E11.49 Active 66940976 Problem Impaired circulation I99.9 Active 17412868 Problem Reactive depression F32.9 Active 38962318 Problem Cigarette nicotine dependence with nicotine-induced di sorder F17.219 Active 18095932 Problem 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 Active 42994 005 Problem Carotid artery disease I77.9 Active 965769288 Problem Hypercholesteremia E78.00 Active 2 84370790 Problem Onychomycosis B35.1 Active 135634 008 Problem Arthritis M19.90 Active 2015384 Problem Panlobular emphysema J43.1 Active 2746796 Problem Hammertoe M20.40 Active 286471258 Problem Type 2 diabetes mellitus E11.9 Activ e 48844384 Problem Essential (primary) hypertension I10 Active 02391075 Problem Tobacco abuse Z72.0 Active 669059 05 Problem PAD (peripheral artery disease) I73.9 Active 273934016 ALLERGIES No Information ENCOUNTERS Encounter Location Date Diagnosis [facility] [address] [place] [address] Jan, [facility] [address] [facility] [id number] [address] [place] [address] Jan, [facility] [address] [place] [address] Oct, Type 2 diabetes mellitus E11.9 and Essen tial (primary) hypertension I10 [facility] [address] [facility] [id number] [address] [place] [address] Oct, Onychomycosis B35.1 ; Diabet es mellitus E11.9 and Impaired circulation I99.[address] [address] Oct, Diabetes mellitus E11.9 and Hypertension I10 [address] [address] Oct, Hypertension I10 [address] [address] Sep, [facility] [address] [id number] [address] [place] [address] Sep, [address] [address] Aug, [facility] [address] [id number] [address] [place] [address] Aug, Panlobular emphysema J43.[address] [address] Aug, Panlobular emphysema J43.[address] [address] Aug, Panlobular emphysema J43.[address] [address] Jul, Encounter for screening for malignant ne oplasm of colon Z12.11 ; CAD (coronary artery disease) I25.10 ; Cigarette nicotine dependence with nicotine- induced disorder F17.219 ; Essential (primary) hypertension I10 ; Panlobular emphysema J43.1 and DM neuro manif type II E11.[address] [address] Jul, Type 2 diabetes mellitus E11.[address] [address] Jul, [facility] [address] [id number] [address] [place] [address] Jul, Onychomycosis B35.1 and DM n euro manif type II E11.49 [place] [id number] [facility] [id number] [address] [place] [address] June, Diabetes mellitus E11.[address] [address] May, [address] [address] Apr, Type 2 diabetes mellitus E11.9 ; [...] M20.40 ; Arthritis M19.90 and Hypoglycemia E16.2 [place] [address] [facility] [id number] [address] [place] [address] Apr, Diabetes mellitus E11.9 [place] [address] [facility] [id number] [address] [place] [address] Apr, Onychomycosis B35.1 ; Impair ed circulation I99.9 and DM neuro manif type II E11.49 [place] [address] [facility] [id number] [address] [place] [address] Jan, Diabetes mellitus E11.9 ; Hy pertension I10 and Encounter for immunization Z23 [place] [address] [facility] [id number] [address] [place] [address] Jan, Diabetes mellitus E11.9 [place] [address] [facility] [id number] [address] [place] [address] Jan, [place] [address] [facility] [id number] [address] [place] [address] Jan, [place] [address] [facility] [id number] [address] [place] [address] Oct, Onychomycosis B35.1 ; DM chuck ro manif type II E11.49 and Impaired circulation I99.9 [facility] [address] [facility] [id number] [address] [place] [address] Sep, [facility] [address] [facility] [id number] [address] [place] [address] Aug, Hypoglycemia E16.2 [facility] [address] [facility] [id number] [address] [place] [address] Aug, [facility] [address] [facility] [id number] [address] [place] [address] Jul, [facility] [address] [place] [id number] [address] [place] [address] Jul, Elevated blood sugar R73.9 a nd Neck pain M54.2 [place] [address] [place] [id number] [address] [place] [address] Jul, [facility] [address] [place] [id number] [address] [place] [address] Jul, Onychomycosis B35.1 and DM n euro manif type II E11.49 [facility] [address] [facility] [id number] [address] [place] [address] Jul, [place] [address] [place] [id number] [address] [place] [address] June, Hyperlipidemia E78.5 [facility] [address] [facility] [id number] [address] [place] [address] June, Diabetes mellitus E11.9 ; CA D (coronary artery disease) I25.10 ; Arthritis M19.90 and Hyperlipidemia E78.5 [facility] [address] [facility] [id number] [address] [place] [address] June, [facility] [address] [place] [id number] [address] [place] [address] Apr, Onychomycosis B35.1 ; DM chuck ro manif type II E11.49 and Hammertoe M20.40 [place] [id number] [facility] [id number] [address] [place] [address] Apr, Diabetes mellitus E11.9 and Hypertension I10 [place] [address] [place] [id number] [address] [place] [address] Mar, Hypertension I10 and Diabete s mellitus E11.9 [place] [address] [facility] [id number] [address] [place] [address] Mar, Hypertension I10 and Diabete s mellitus E11.9 [place] [address] [place] [id number] [address] [place] [address] Jan, Onychomycosis B35.1 and DM n euro manif type II E11.49 [place] [address] [place] [id number] [address] [place] [address] Dec, [place] [address] [place] [id number] [address] [place] [address] Dec, [place] [address] [place] [id number] [address] [place] [address] Dec, Hypertension I10 and Diabete s mellitus E11.9 [place] [address] [place] [id number] [address] [place] [address] Oct, Encounter for immunization Z 23 ; Diabetes mellitus E11.9 ; Hypertension I10 and Cigarette nicotine dependence with nicotine-induced disorder F17.219 [place] [address] [address] [place] [id number] [address] [place] [address] Oct, Diabetes mellitus E11.9 [place] [address] [place] [id number] [address] [place] [address] Oct, Onychomycosis B35.1 ; DM chuck ro manif type II E11.49 and Hammertoe M20.40 [place] [address] [place] [id number] [address] [place] [address] Jul, Diabetes mellitus E11.9 [place] [address] [facility] [id number] [address] [place] [address] Jul, Onychomycosis B35.1 ; Hammer toe M20.40 and DM neuro manif type II E11.49 [place] [address] [facility] [id number] [address] [place] [address] May, Diabetes mellitus E11.9 [place] [address] [place] [id number] [place] [address] May, Diabetes mellitus E11.9 [place] [address] [address] Nov, Diabetes mellitus E11.9 ; Hy pertension I10 ; Reactive depression F32.9 and Encounter for immunization Z23 [place] [address] [place] [id number] [place] [address] Oct, Ulcer of other part of foot L97.509 [place] [address] [address] Sep, Onychomycosis B35.1 ; Ulcer of heel, left, with unspecified severity L97.429 and DM neuro manif type II E11.49 [place] [id number] [place] [address] Sep, [place] [address] [place] [id number] [place] [address] Sep, Ulcer of heel, left, with un specified severity L97.429 [place] [address] [address] [place] [id number] [address] [place] [address] Aug, Onychomycosis B35.1 ; Ulcer of heel, left, with unspecified severity L97.429 and DM neuro manif type II E11.49 [place] [address] [address] [place] [id number] [address] [place] [address] Jul, Diabetes mellitus E11.9 ; Hy pertension I10 ; Cigarette nicotine dependence with nicotine-induced disorder F17.219 and CAD (coronary artery disease) I25.10 [facility] [address] [id number] [address] [place] [address] Jul, Left leg claudication I73.9 ; Right leg claudication I73.9 ; CAD (coronary artery disease) I25.10 ; Hypertension I10 and Hyperlipidemia E78.5 [facility] [address] [facility] [id number] [address] [place] [address] Jul, Ulcer of heel, left, with un specified severity L97.429 and DM neuro manif type II E11.49 [facility] [address] [id number] [address] [place] [address] June, Ulcer of heel, left, with un specified severity L97.429 and Ulcer of other part of foot L97.509 [place] [address] [facility] [id number] [address] [place] [address] June, Ulcer of heel, left, with un specified severity L97.429 and Ulcer of foot, left, with unspecified severity L97.529 [place] [address] [facility] [id number] [address] [place] [address] May, [facility] [address] [facility] [id number] [address] [place] [address] May, [facility] [address] [facility] [id number] [address] [place] [phone] Apr, DM neuro manif type II E11.4 9 ; Hypertension I10 and Sleep apnea in adult G47.33 [facility] [address] [facility] [id number] [address] [place] [address] Apr, [facility] [address] [id number] [address] [place] [address] Apr, Ulcer of foot L97.509 and DM neuro manif type II E11.49 [facility] [address] [facility] [id number] [address] [place] [address] Apr, Ulcer of other part of foot L97.509 and DM neuro manif type II E11.49 [facility] [address] [address] 12 Apr, 2015 Onychomycosis B35.1 ; Ingrow n toenail L60.0 ; Impaired circulation I99.9 and DM neuro manif type II E11.[address] [address] 08 Mar, 2015 Ulcer of other part of foot L97.509 ; Onychomycosis B35.1 and Diabetes mellitus E11.[address] [address] 19 Dec, 2014 Encounter for immunization Z 23 ; Hypertension I10 and Diabetes mellitus E11.[address] [address] Dec, [address] [address] Dec, CAD (coronary artery disease ) I25.10 ; Hypertension I10 ; Left leg claudication I73.9 and Hyperlipidemia E78.[address] [address] Nov, Onychomycosis B35.1 and Vin ertoe M20.[address] [address] Sep, Coronary atherosclerosis of unspecified type of vessel, skagway or graft 414.[address] [address] Sep, Coronary atherosclerosis of unspecified type of vessel, skagway or graft 414.00 and Diabetes 250.[address] [address] May, [address] [address] May, [place] [address] [address] Apr, [facility] [address] [id number] [address] [place] [address], [place] [address] Apr, [facility] [address] [id number] [address] [place] [address], [place] [address] Apr, [facility] [address] [id number] [address] [place] [address], [place] [address] Apr, [facility] [address] [id number] [address] [place] [address], [place] [address] Mar, [facility] [address] [id number] [address] [place] [address], [place] [address] Mar, [facility] [address] [id number] [address] [place] [address], [place] [address] Jan, [facility] [address] [id number] [address] [place] [address], [place] [address] Jan, [facility] [address] [id number] [address] [place] [address], [place] [address] Jan, [facility] [address] [id number] [address] [place] [address], [place] [address] Jan, [facility] [address] [id number] [address] [place] [address], [place] [address] Jan, [facility] [address] [id number] [address] [place] [address], [place] [address] Jan, [facility] [address] [id number] [address] [place] [address], [place] [address] Jan, [facility] [address] [id number] [address] [place] [address], [place] [address] Jan, [facility] [address] [id number] [address] [place] [address], [place] [address] Jan, [facility] [address] [id number] [address] [place] [address], [place] [address] Jan, [facility] [address] [id number] [address] [place] [address] Jan, [facility] [address] [id number] [address] [place] [address], [place] [address] Nov, [facility] [address] [id number] [address] [place] [address], [place] [address] Nov, [facility] [address] [id number] [address] [place] [address], [place] [address] Nov, [facility] [address] [id number] [address] [place] [address], [place] [address] Nov, [facility] [address] [id number] [address] [place] [address], [place] [address] Nov, [facility] [address] [id number] [address] [place] [address], [place] [address] Nov, [facility] [address] [id number] [address] [place] [address], [place] [address] Oct, [facility] [address] [id number] [address] [place] [address], [place] [address] Oct, [facility] [address] [id number] [address] [place] [address], [place] [address] Oct, [facility] [address] [id number] [address] [place] [address], [place] [address] Oct, [facility] [address] [id number] [address] [place] [address], [place] [address] Oct, [facility] [address] [id number] [address] [place] [address], [place] [address] Oct, [facility] [address] [id number] [address] [place] [address], [place] [address] Sep, [facility] [address] [id number] [address] [place] [address], [place] [address] Sep, [facility] [address] [id number] [address] [place] [address], [place] [address] Sep, [facility] [address] [id number] [facility] [place] [address] Sep, [facility] [address] [id number] [facility] [place] [address] Sep, [facility] [address] [id number] [facility] [place] [address] Sep, [facility] [address] [id number] [address] [place] [address], [place] [address] Aug, [facility] [address] [id number] [address] [place] [address], [place] [address] Aug, [facility] [address] [id number] [address] [place] [address], [place] [address] Aug, [facility] [address] [id number] [address] [place] [address], [place] [address] Aug, [facility] [address] [id number] [address] [place] [address], [place] [address] Aug, [facility] [address] [id number] [address] [place] [address], [place] [address] Aug, [facility] [address] [id number] [address] [place] [address], [place] [address] Jul, [facility] [address] [id number] [address] [place] [address], [place] [address] Jul, [facility] [address] [id number] [address] [place] [address], [place] [address] Jul, [facility] [address] [id number] [address] [place] [address], [place] [address] Jul, [facility] [address] [id number] [address] [place] [address], [place] [address] June, [facility] [address] [id number] [address] [place] [address], [place] [address] June, [facility] [address] [id number] [address] [place] [address], [place] [address] June, [facility] [address] [id number] [address] [place] [address], [place] [address] June, [facility] [address] [id number] [address] [place] [address], [place] [address] May, [facility] [address] [id number] [address] [place] [address], [place] [address] May, [facility] [address] [id number] [address] [place] [address], [place] [address] May, [facility] [address] [id number] [address] [place] [address], [place] [address] May, [facility] [address] [id number] [address] [place] [address], [place] [address] May, [facility] [address] [id number] [address] [place] [address], [place] [address] May, [facility] [address] [id number] [address] [place] [address], [place] [address] Apr, [facility] [address] [id number] [address] [place] [address], [place] [address] Apr, [facility] [address] [id number] [address] [place] [address], [place] [address] Apr, [facility] [address] [id number] [address] [place] [address], [place] [address] Apr, [facility] [address] [id number] [address] [place] [address], [place] [address] Apr, [facility] [address] [id number] [address] [place] [address], [place] [address] Apr, [facility] [address] [id number] [address] [place] [address], [place] [address] Apr, [facility] [address] [id number] [address] [place] [address], [place] [address] Jan, [facility] [address] [id number] [address] [place] [address], [place] [address] Jan, [facility] [address] [id number] [address] [place] [address], [place] [address] Jan, [facility] [address] [id number] [address] [place] [address], [place] [address] Jan, [facility] [address] [id number] [address] [place] [address], [place] [address] Jan, [facility] [address] [id number] [address] [place] [address], [place] [address] Jan, [facility] [address] [id number] [address] [place] [address], [place] [address] Dec, [facility] [address] [id number] [address] [place] [address], [place] [address] Dec, [facility] [address] [id number] [address] [place] [address], [place] [address] Dec, [facility] [address] [id number] [address] [place] [address], [place] [address] Dec, [facility] [address] [id number] [address] [place] [address], [place] [address] Dec, [facility] [address] [id number] [address] [place] [address], [place] [address] Dec, [facility] [address] [id number] [address] [place] [address], [place] [address] Nov, [facility] [address] [id number] [address] [place] [address], [place] [address] Oct, [facility] [address] [id number] [address] [place] [address], [place] [address] Oct, [facility] [address] [id number] [address] [place] [address], [place] [address] Aug, [facility] [address] [id number] [address] [place] [address], [place] [address] Aug, [facility] [address] [id number] [address] [place] [address], [place] [address] Jul, [facility] [address] [id number] [address] [place] [address], [place] [address] June, [facility] [address] [id number] [address] [place] [address], [place] [address] Apr, [facility] [address] [id number] [address] [place] [address], [place] [address] Apr, [facility] [address] [id number] [address] [place] [address], [place] [address] Apr, [facility] [address] [id number] [address] [place] [address], [place] [address] Apr, [facility] [address] [id number] [address] [place] [address], [place] [address] Mar, [facility] [address] [id number] [address] [place] [address], [place] [address] Jan, [facility] [address] [id number] [address] [place] [address], [place] [address] Jan, [facility] [address] [id number] [address] [place] [address], [place] [address] Jan, [facility] [address] [id number] [address] [place] [address], [place] [address] Jan, [facility] [address] [id number] [address] [place] [address], [place] [address] Jan, [facility] [address] [id number] [address] [place] [address], [place] [address] Jan, [facility] [address] [id number] [address] [place] [address], [place] [address] Jan, [facility] [address] [id number] [address] [place] [address], [place] [address] Jan, [facility] [address] [id number] [address] [place] [address], [place] [address] 16 Dec, 2011 [facility] [address] [id number] [address] [place] [address], [place] [address] 16 Dec, 2011 [facility] [address] [id number] [address] [place] [address], [place] [address] 16 Dec, 2011 [facility] [address] [id number] [address] [place] [address], [place] [address] 16 Dec, 2011 [facility] [address] [id number] [address] [place] [address], [place] [address] 17 Nov, 2011 [facility] [address] [id number] [address] [place] [address], [place] [address] 24 Oct, 2011 [facility] [address] [id number] [address] [place] [address], [place] [address] 14 Aug, 2011 [facility] [address] [id number] [address] [place] [address], [place] [address] 14 Aug, 2011 [facility] [address] [id number] [address] [place] [address], [place] [address] 14 Aug, 2011 [facility] [address] [address] [id number] [address] [place] [address], [place] [id number] 13 Aug, 2011 [facility] [address] [id number] [address] [place] [address], [place] [address] 13 Aug, 2011 [facility] [address] [id number] [address] [place] [address], [place] [id number] 20 May, 2011 [facility] [address] [id number] [address] [place] [address], [place] [address] 16 Apr, 2011 [facility] [address] [id number] [address] [place] [address], [place] [address] 16 Apr, 2011 [facility] [address] [id number] [address] [place] [address], [place] [address] Mar, [facility] [address] [id number] [address] [place] [address], [place] [address] Mar, [facility] [address] [facility] [id number] [address] [place] [id number] Dec, [facility] [address] [facility] [id number] [address] [place] [phone] Dec, [facility] [address] [facility] [id number] [address] [place] [id number] Dec, IMMUNIZATIONS No Known Immunizations SOCIAL HISTORY [...]
--- OUTSIDE RECORDS SUMMARY | 2019-06-21 16:30 | XMS REPORT ---
Author Author Nick ABDI Organization [facility] Address [address] [place] [address] Care Team Providers Care Linux System Admin Name Role Phone ELVIN ABDI Unavailable PROBLEMS Type Condition ICD9-CM Code ZFU79-LA Code Onset Dates Condition S tatus SNOMED Code Problem Hyperlipidemia E78.5 Active 10140 004 Problem Left leg claudication I73.9 Active 550379054 Problem DM neuro manif type II E11.49 Active 39311256 Problem Impaired circulation I99.9 Active 03843045 Problem Reactive depression F32.9 Active 36373838 Problem Cigarette nicotine dependence with nicotine-induced di sorder F17.219 Active 79429771 Problem 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 Active 01519 005 Problem Carotid artery disease I77.9 Active 373307129 Problem Hypercholesteremia E78.00 Active 2 98869248 Problem Onychomycosis B35.1 Active 184321 008 Problem Arthritis M19.90 Active 1459155 Problem Panlobular emphysema J43.1 Active 9937856 Problem Hammertoe M20.40 Active 551950515 Problem Type 2 diabetes mellitus E11.9 Activ e 44919202 Problem Essential (primary) hypertension I10 Active 30843812 Problem Tobacco abuse Z72.0 Active 194056 05 Problem PAD (peripheral artery disease) I73.9 Active 056676755 ALLERGIES No Information ENCOUNTERS Encounter Location Date Diagnosis [facility] [address] [place] [address] Jan, [facility] [address] [facility] [id number] [address] [place] [address] Jan, [facility] [address] [place] [address] Oct, Type 2 diabetes mellitus E11.9 and Essen tial (primary) hypertension I10 [facility] [address] [facility] [id number] [address] [place] [address] Oct, Onychomycosis B35.1 ; Diabet es mellitus E11.9 and Impaired circulation I99.[address] [address] Oct, Diabetes mellitus E11.9 and Hypertension I10 [address] [address] Oct, Hypertension I10 [address] [address] Sep, [facility] [address] [id number] [address] [place] [address] Sep, [address] [address] Aug, [facility] [address] [id number] [address] [place] [address] Aug, Panlobular emphysema J43.[address] [address] Aug, Panlobular emphysema J43.[address] [address] Aug, Panlobular emphysema J43.[address] [address] Jul, Encounter for screening for malignant ne oplasm of colon Z12.11 ; CAD (coronary artery disease) I25.10 ; Cigarette nicotine dependence with nicotine- induced disorder F17.219 ; Essential (primary) hypertension I10 ; Panlobular emphysema J43.1 and DM neuro manif type II E11.[address] [address] Jul, Type 2 diabetes mellitus E11.[address] [address] Jul, [facility] [address] [id number] [address] [place] [address] Jul, Onychomycosis B35.1 and DM n euro manif type II E11.49 [place] [address] [facility] [id number] [address] [place] [address] June, Diabetes mellitus E11.[address] [address] May, [address] [address] Apr, Type 2 diabetes mellitus E11.9 ; [...] M20.40 ; Arthritis M19.90 and Hypoglycemia E16.2 [place] [address] [facility] [id number] [address] [place] [address] Apr, Diabetes mellitus E11.9 [place] [address] [facility] [id number] [address] [place] [address] Apr, Onychomycosis B35.1 ; Impair ed circulation I99.9 and DM neuro manif type II E11.49 [place] [address] [facility] [id number] [address] [place] [address] Jan, Diabetes mellitus E11.9 ; Hy pertension I10 and Encounter for immunization Z23 [place] [address] [facility] [id number] [address] [place] [address] Jan, Diabetes mellitus E11.9 [place] [address] [facility] [id number] [address] [place] [address] Jan, [place] [address] [facility] [id number] [address] [place] [address] Jan, [place] [address] [facility] [id number] [address] [place] [address] Oct, Onychomycosis B35.1 ; DM chuck ro manif type II E11.49 and Impaired circulation I99.9 [facility] [address] [facility] [id number] [address] [place] [address] Sep, [facility] [address] [facility] [id number] [address] [place] [address] Aug, Hypoglycemia E16.2 [facility] [address] [facility] [id number] [address] [place] [address] Aug, [facility] [address] [facility] [id number] [address] [place] [address] Jul, [facility] [address] [place] [id number] [address] [place] [address] Jul, Elevated blood sugar R73.9 a nd Neck pain M54.2 [place] [address] [place] [id number] [address] [place] [address] Jul, [facility] [address] [place] [id number] [address] [place] [address] Jul, Onychomycosis B35.1 and DM n euro manif type II E11.49 [facility] [address] [facility] [id number] [address] [place] [address] Jul, [place] [address] [place] [id number] [address] [place] [address] June, Hyperlipidemia E78.5 [facility] [address] [facility] [id number] [address] [place] [address] June, Diabetes mellitus E11.9 ; CA D (coronary artery disease) I25.10 ; Arthritis M19.90 and Hyperlipidemia E78.5 [facility] [address] [facility] [id number] [address] [place] [address] June, [facility] [address] [place] [id number] [address] [place] [address] Apr, Onychomycosis B35.1 ; DM chuck ro manif type II E11.49 and Hammertoe M20.40 [place] [address] [facility] [id number] [address] [place] [address] Apr, Diabetes mellitus E11.9 and Hypertension I10 [place] [address] [place] [id number] [address] [place] [address] Mar, Hypertension I10 and Diabete s mellitus E11.9 [place] [address] [facility] [id number] [address] [place] [address] Mar, Hypertension I10 and Diabete s mellitus E11.9 [place] [address] [place] [id number] [address] [place] [address] Jan, Onychomycosis B35.1 and DM n euro manif type II E11.49 [place] [address] [place] [id number] [address] [place] [address] Dec, [place] [address] [place] [id number] [address] [place] [address] Dec, [place] [address] [place] [id number] [address] [place] [address] Dec, Hypertension I10 and Diabete s mellitus E11.9 [place] [address] [place] [id number] [address] [place] [address] Oct, Encounter for immunization Z 23 ; Diabetes mellitus E11.9 ; Hypertension I10 and Cigarette nicotine dependence with nicotine-induced disorder F17.219 [place] [address] [place] [id number] [address] [place] [address] Oct, Diabetes mellitus E11.9 [place] [address] [place] [id number] [address] [place] [address] Oct, Onychomycosis B35.1 ; DM chuck ro manif type II E11.49 and Hammertoe M20.40 [place] [address] [place] [id number] [address] [place] [address] Jul, Diabetes mellitus E11.9 [place] [address] [facility] [id number] [address] [place] [address] Jul, Onychomycosis B35.1 ; Hammer toe M20.40 and DM neuro manif type II E11.49 [place] [address] [facility] [id number] [address] [place] [address] May, Diabetes mellitus E11.9 [place] [address] [place] [id number] [place] [address] May, Diabetes mellitus E11.9 [place] [address] [address] Nov, Diabetes mellitus E11.9 ; Hy pertension I10 ; Reactive depression F32.9 and Encounter for immunization Z23 [place] [address] [place] [id number] [place] [address] Oct, Ulcer of other part of foot L97.509 [place] [address] [address] Sep, Onychomycosis B35.1 ; Ulcer of heel, left, with unspecified severity L97.429 and DM neuro manif type II E11.49 [place] [id number] [place] [address] Sep, [place] [address] [place] [id number] [place] [address] Sep, Ulcer of heel, left, with un specified severity L97.429 [place] [address] [place] [id number] [address] [place] [address] Aug, Onychomycosis B35.1 ; Ulcer of heel, left, with unspecified severity L97.429 and DM neuro manif type II E11.49 [place] [address] [place] [id number] [address] [place] [address] Jul, Diabetes mellitus E11.9 ; Hy pertension I10 ; Cigarette nicotine dependence with nicotine-induced disorder F17.219 and CAD (coronary artery disease) I25.10 [facility] [address] [id number] [address] [place] [address] Jul, Left leg claudication I73.9 ; Right leg claudication I73.9 ; CAD (coronary artery disease) I25.10 ; Hypertension I10 and Hyperlipidemia E78.5 [facility] [address] [facility] [id number] [address] [place] [address] Jul, Ulcer of heel, left, with un specified severity L97.429 and DM neuro manif type II E11.49 [facility] [address] [id number] [address] [place] [address] June, Ulcer of heel, left, with un specified severity L97.429 and Ulcer of other part of foot L97.509 [place] [address] [facility] [id number] [address] [place] [address] June, Ulcer of heel, left, with un specified severity L97.429 and Ulcer of foot, left, with unspecified severity L97.529 [place] [address] [facility] [id number] [address] [place] [address] May, [facility] [address] [facility] [id number] [address] [place] [address] May, [facility] [address] [facility] [id number] [address] [place] [address] Apr, DM neuro manif type II E11.4 9 ; Hypertension I10 and Sleep apnea in adult G47.33 [facility] [address] [facility] [id number] [address] [place] [address] Apr, [facility] [address] [id number] [address] [place] [address] Apr, Ulcer of foot L97.509 and DM neuro manif type II E11.49 [facility] [address] [facility] [id number] [address] [place] [address] Apr, Ulcer of other part of foot L97.509 and DM neuro manif type II E11.49 [facility] [address] [address] 12 Apr, 2015 Onychomycosis B35.1 ; Ingrow n toenail L60.0 ; Impaired circulation I99.9 and DM neuro manif type II E11.[address] [address] 08 Mar, 2015 Ulcer of other part of foot L97.509 ; Onychomycosis B35.1 and Diabetes mellitus E11.[address] [address] 19 Dec, 2014 Encounter for immunization Z 23 ; Hypertension I10 and Diabetes mellitus E11.[address] [address] Dec, [address] [address] Dec, CAD (coronary artery disease ) I25.10 ; Hypertension I10 ; Left leg claudication I73.9 and Hyperlipidemia E78.[address] [address] Nov, Onychomycosis B35.1 and Vin ertoe M20.[address] [address] Sep, Coronary atherosclerosis of unspecified type of vessel, [place] or graft 414.[address] [address] Sep, Coronary atherosclerosis of unspecified type of vessel, [place] or graft 414.00 and Diabetes 250.[address] [address] May, [address] [address] May, [place] [address] [address] Apr, [facility] [address] [id number] [address] [place] [address], [place] [address] Apr, [facility] [address] [id number] [address] [place] [address], [place] [address] Apr, [facility] [address] [id number] [address] [place] [address], [place] [address] Apr, [facility] [address] [id number] [address] [place] [address], [place] [address] Mar, [facility] [address] [id number] [address] [place] [address], [place] [address] Mar, [facility] [address] [id number] [address] [place] [address], [place] [address] Jan, [facility] [address] [id number] [address] [place] [address], [place] [address] Jan, [facility] [address] [id number] [address] [place] [address], [place] [address] Jan, [facility] [address] [id number] [address] [place] [address], [place] [address] Jan, [facility] [address] [id number] [address] [place] [address], [place] [address] Jan, [facility] [address] [id number] [address] [place] [address], [place] [address] Jan, [facility] [address] [id number] [address] [place] [address], [place] [address] Jan, [facility] [address] [id number] [address] [place] [address], [place] [address] Jan, [facility] [address] [id number] [address] [place] [address], [place] [address] Jan, [facility] [address] [id number] [address] [place] [address], [place] [address] Jan, [facility] [address] [id number] [address] [place] [address] Jan, [facility] [address] [id number] [address] [place] [address], [place] [address] Nov, [facility] [address] [id number] [address] [place] [address], [place] [address] Nov, [facility] [address] [id number] [address] [place] [address], [place] [address] Nov, [facility] [address] [id number] [address] [place] [address], [place] [address] Nov, [facility] [address] [id number] [address] [place] [address], [place] [address] Nov, [facility] [address] [id number] [address] [place] [address], [place] [address] Nov, [facility] [address] [id number] [address] [place] [address], [place] [address] Oct, [facility] [address] [id number] [address] [place] [address], [place] [address] Oct, [facility] [address] [id number] [address] [place] [address], [place] [address] Oct, [facility] [address] [id number] [address] [place] [address], [place] [address] Oct, [facility] [address] [id number] [address] [place] [address], [place] [address] Oct, [facility] [address] [id number] [address] [place] [address], [place] [address] Oct, [facility] [address] [id number] [address] [place] [address], [place] [address] Sep, [facility] [address] [id number] [address] [place] [address], [place] [address] Sep, [facility] [address] [id number] [address] [place] [address], [place] [address] Sep, [facility] [address] [id number] [facility] [place] [address] Sep, [facility] [address] [id number] [facility] [place] [address] Sep, [facility] [address] [id number] [facility] [place] [address] Sep, [facility] [address] [id number] [address] [place] [address], [place] [address] Aug, [facility] [address] [id number] [address] [place] [address], [place] [address] Aug, [facility] [address] [id number] [address] [place] [address], [place] [address] Aug, [facility] [address] [id number] [address] [place] [address], [place] [address] Aug, [facility] [address] [id number] [address] [place] [address], [place] [address] Aug, [facility] [address] [id number] [address] [place] [address], [place] [address] Aug, [facility] [address] [id number] [address] [place] [address], [place] [address] Jul, [facility] [address] [id number] [address] [place] [address], [place] [address] Jul, [facility] [address] [id number] [address] [place] [address], [place] [address] Jul, [facility] [address] [id number] [address] [place] [address], [place] [address] Jul, [facility] [address] [id number] [address] [place] [address], [place] [address] June, [facility] [address] [id number] [address] [place] [address], [place] [address] June, [facility] [address] [id number] [address] [place] [address], [place] [address] June, [facility] [address] [id number] [address] [place] [address], [place] [address] June, [facility] [address] [id number] [address] [place] [address], [place] [address] May, [facility] [address] [id number] [address] [place] [address], [place] [address] May, [facility] [address] [id number] [address] [place] [address], [place] [address] May, [facility] [address] [id number] [address] [place] [address], [place] [address] May, [facility] [address] [id number] [address] [place] [address], [place] [address] May, [facility] [address] [id number] [address] [place] [address], [place] [address] May, [facility] [address] [id number] [address] [place] [address], [place] [address] Apr, [facility] [address] [id number] [address] [place] [address], [place] [address] Apr, [facility] [address] [id number] [address] [place] [address], [place] [address] Apr, [facility] [address] [id number] [address] [place] [address], [place] [address] Apr, [facility] [address] [id number] [address] [place] [address], [place] [address] Apr, [facility] [address] [id number] [address] [place] [address], [place] [address] Apr, [facility] [address] [id number] [address] [place] [address], [place] [address] Apr, [facility] [address] [id number] [address] [place] [address], [place] [address] Jan, [facility] [address] [id number] [address] [place] [address], [place] [address] Jan, [facility] [address] [id number] [address] [place] [address], [place] [address] Jan, [facility] [address] [id number] [address] [place] [address], [place] [address] Jan, [facility] [address] [id number] [address] [place] [address], [place] [address] Jan, [facility] [address] [id number] [address] [place] [address], [place] [address] Jan, [facility] [address] [id number] [address] [place] [address], [place] [address] Dec, [facility] [address] [id number] [address] [place] [address], [place] [address] Dec, [facility] [address] [id number] [address] [place] [address], [place] [address] Dec, [facility] [address] [id number] [address] [place] [address], [place] [address] Dec, [facility] [address] [id number] [address] [place] [address], [place] [address] Dec, [facility] [address] [id number] [address] [place] [address], [place] [address] Dec, [facility] [address] [id number] [address] [place] [address], [place] [address] Nov, [facility] [address] [id number] [address] [place] [address], [place] [address] Oct, [facility] [address] [id number] [address] [place] [address], [place] [address] Oct, [facility] [address] [id number] [address] [place] [address], [place] [address] Aug, [facility] [address] [id number] [address] [place] [address], [place] [address] Aug, [facility] [address] [id number] [address] [place] [address], [place] [address] Jul, [facility] [address] [id number] [address] [place] [address], [place] [address] June, [facility] [address] [id number] [address] [place] [address], [place] [address] Apr, [facility] [address] [id number] [address] [place] [address], [place] [address] Apr, [facility] [address] [id number] [address] [place] [address], [place] [address] Apr, [facility] [address] [id number] [address] [place] [address], [place] [address] Apr, [facility] [address] [id number] [address] [place] [address], [place] [address] Mar, [facility] [address] [id number] [address] [place] [address], [place] [address] Jan, [facility] [address] [id number] [address] [place] [address], [place] [address] Jan, [facility] [address] [id number] [address] [place] [address], [place] [address] Jan, [facility] [address] [id number] [address] [place] [address], [place] [address] Jan, [facility] [address] [id number] [address] [place] [address], [place] [address] Jan, [facility] [address] [id number] [address] [place] [address], [place] [address] Jan, [facility] [address] [id number] [address] [place] [address], [place] [address] Jan, [facility] [address] [id number] [address] [place] [address], [place] [address] Jan, [facility] [address] [id number] [address] [place] [address], [place] [address] 16 Dec, 2011 [facility] [address] [id number] [address] [place] [address], [place] [address] 16 Dec, 2011 [facility] [address] [id number] [address] [place] [address], [place] [address] 16 Dec, 2011 [facility] [address] [id number] [address] [place] [address], [place] [address] 16 Dec, 2011 [facility] [address] [id number] [address] [place] [address], [place] [address] 17 Nov, 2011 [facility] [address] [id number] [address] [place] [address], [place] [id number] 24 Oct, 2011 [facility] [address] [id number] [address] [place] [address], [place] [address] 14 Aug, 2011 [facility] [address] [id number] [address] [place] [address], [place] [id number] 14 Aug, 2011 [facility] [address] [id number] [address] [place] [address], [place] [id number] 14 Aug, 2011 [facility] [address] [id number] [address] [place] [address], [place] [id number] 13 Aug, 2011 [facility] [address] [id number] [address] [place] [address], [place] [id number] 13 Aug, 2011 [facility] [address] [id number] [address] [place] [address], [place] [id number] 20 May, 2011 [facility] [address] [id number] [address] [place] [address], [place] [id number] 16 Apr, 2011 [facility] [address] [id number] [address] [place] [address], [place] [id number] 16 Apr, 2011 [facility] [address] [id number] [address] [place] [address], [place] [id number] Mar, [facility] [address] [id number] [address] [place] [address], [place] [id number] Mar, [facility] [address] [facility] [id number] [address] [place] [id number] Dec, [facility] [address] [facility] [id number] [address] [place] [id number] Dec, [facility] [address] [facility] [id number] [address] [place] [id number] Dec, IMMUNIZATIONS No Known Immunizations SOCIAL HISTORY [...]
--- OUTSIDE RECORDS SUMMARY | 2019-06-21 16:30 | XMS REPORT ---
Author Author Nick Roberts Doctor Organization [facility] Address Unknown Phone Unavailable Care Team Providers Care Head Golf Coach Name Role Phone Migration, Doctor Unavailable Unavailable PROBLEMS Type Condition ICD9-CM Code TJC01-TQ Code Onset Dates Condition S tatus SNOMED Code Problem Hyperlipidemia E78.5 Active 51463 004 Problem Left leg claudication I73.9 Active 508928453 Problem DM neuro manif type II E11.49 Active 43933942 Problem Impaired circulation I99.9 Active 70394614 Problem Reactive depression F32.9 Active 99644558 Problem Cigarette nicotine dependence with nicotine-induced di sorder F17.219 Active 57892799 Problem 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 Active 17832 005 Problem Carotid artery disease I77.9 Active 532044215 Problem Hypercholesteremia E78.00 Active 2 87712050 Problem Onychomycosis B35.1 Active 662581 008 Problem Arthritis M19.90 Active 5560795 Problem Panlobular emphysema J43.1 Active 4544299 Problem Hammertoe M20.40 Active 272935981 Problem Type 2 diabetes mellitus E11.9 Activ e 36277838 Problem Essential (primary) hypertension I10 Active 42055364 Problem Tobacco abuse Z72.0 Active 983454 05 Problem PAD (peripheral artery disease) I73.9 Active 480501914 ALLERGIES No Information ENCOUNTERS Encounter Location Date Diagnosis [facility] [address] [place] [address] Jan, [facility] [address] [facility] [id number] [address] [place] [address] Jan, [facility] [address] [place] [address] Oct, Type 2 diabetes mellitus E11.9 and Essen tial (primary) hypertension I10 [facility] [address] [facility] [id number] [address] [place] [address] Oct, Onychomycosis B35.1 ; Diabet es mellitus E11.9 and Impaired circulation I99.[address] [address] Oct, Diabetes mellitus E11.9 and Hypertension I10 [address] [address] Oct, Hypertension I10 [address] [address] Sep, [facility] [address] [facility] [id number] [address] [place] [address] Sep, [address] [address] Aug, [facility] [address] [facility] [id number] [address] [place] [address] Aug, Panlobular emphysema J43.[address] [address] Aug, Panlobular emphysema J43.[address] [address] Aug, Panlobular emphysema J43.[address] [address] Jul, Encounter for screening for malignant ne oplasm of colon Z12.11 ; CAD (coronary artery disease) I25.10 ; Cigarette nicotine dependence with nicotine- induced disorder F17.219 ; Essential (primary) hypertension I10 ; Panlobular emphysema J43.1 and DM neuro manif type II E11.[address] [address] Jul, Type 2 diabetes mellitus E11.[address] [address] Jul, [facility] [address] [id number] [address] [place] [address] Jul, Onychomycosis B35.1 and DM n euro manif type II E11.49 [facility] [address] [facility] [id number] [address] [place] [address] June, Diabetes mellitus E11.[address] [address] May, [address] [address] Apr, Type 2 diabetes mellitus E11.9 ; [...] M20.40 ; Arthritis M19.90 and Hypoglycemia E16.2 [place] [address] [facility] [id number] [address] [place] [address] Apr, Diabetes mellitus E11.9 [place] [address] [facility] [id number] [address] [place] [address] Apr, Onychomycosis B35.1 ; Impair ed circulation I99.9 and DM neuro manif type II E11.49 [place] [address] [facility] [id number] [address] [place] [address] Jan, Diabetes mellitus E11.9 ; Hy pertension I10 and Encounter for immunization Z23 [place] [address] [facility] [id number] [address] [place] [address] Jan, Diabetes mellitus E11.9 [place] [address] [facility] [id number] [address] [place] [address] Jan, [place] [address] [facility] [id number] [address] [place] [address] Jan, [place] [address] [facility] [id number] [address] [place] [address] Oct, Onychomycosis B35.1 ; DM chuck ro manif type II E11.49 and Impaired circulation I99.9 [facility] [address] [facility] [id number] [address] [place] [address] Sep, [facility] [address] [facility] [id number] [address] [place] [address] Aug, Hypoglycemia E16.2 [facility] [address] [facility] [id number] [address] [place] [address] Aug, [facility] [address] [facility] [id number] [address] [place] [address] Jul, [facility] [address] [facility] [id number] [address] [place] [address] Jul, Elevated blood sugar R73.9 a nd Neck pain M54.2 [place] [address] [place] [id number] [address] [place] [address] Jul, [facility] [address] [facility] [id number] [address] [place] [address] Jul, Onychomycosis B35.1 and DM n euro manif type II E11.49 [facility] [address] [facility] [id number] [address] [place] [address] Jul, [facility] [address] [facility] [id number] [address] [place] [address] June, Hyperlipidemia E78.5 [facility] [address] [facility] [id number] [address] [place] [address] June, Diabetes mellitus E11.9 ; CA D (coronary artery disease) I25.10 ; Arthritis M19.90 and Hyperlipidemia E78.5 [facility] [address] [facility] [id number] [address] [place] [address] June, [facility] [address] [facility] [id number] [address] [place] [address] Apr, Onychomycosis B35.1 ; DM chuck ro manif type II E11.49 and Hammertoe M20.40 [place] [address] [place] [id number] [address] [place] [address] Apr, Diabetes mellitus E11.9 and Hypertension I10 [place] [address] [place] [id number] [address] [place] [address] Mar, Hypertension I10 and Diabete s mellitus E11.9 [place] [address] [place] [id number] [address] [place] [address] Mar, Hypertension I10 and Diabete s mellitus E11.9 [place] [address] [place] [id number] [address] [place] [address] Jan, Onychomycosis B35.1 and DM n euro manif type II E11.49 [place] [address] [place] [id number] [address] [place] [address] Dec, [place] [address] [address] Dec, [place] [address] [address] Dec, Hypertension I10 and Diabete s mellitus E11.9 [place] [address] [address] Oct, Encounter for immunization Z 23 ; Diabetes mellitus E11.9 ; Hypertension I10 and Cigarette nicotine dependence with nicotine-induced disorder F17.219 [place] [address] [place] [id number] [address] [place] [address] Oct, Diabetes mellitus E11.9 [place] [address] [place] [id number] [address] [place] [address] Oct, Onychomycosis B35.1 ; DM chuck ro manif type II E11.49 and Hammertoe M20.40 [place] [address] [place] [id number] [address] [place] [address] Jul, Diabetes mellitus E11.9 [place] [address] [place] [id number] [address] [place] [address] Jul, Onychomycosis B35.1 ; Hammer toe M20.40 and DM neuro manif type II E11.49 [place] [address] [place] [id number] [address] [place] [address] May, Diabetes mellitus E11.9 [place] [address] [place] [id number] [address] [place] [address] May, Diabetes mellitus E11.9 [place] [address] [place] [id number] [place] [address] Nov, Diabetes mellitus E11.9 ; Hy pertension I10 ; Reactive depression F32.9 and Encounter for immunization Z23 [place] [address] [place] [id number] [place] [address] Oct, Ulcer of other part of foot L97.[address] [address] Sep, Onychomycosis B35.1 ; Ulcer of heel, left, with unspecified severity L97.429 and DM neuro manif type II E11.49 [place] [id number] [place] [address] Sep, [place] [address] [address] Sep, Ulcer of heel, left, with un specified severity L97.429 [place] [address] [place] [id number] [address] [place] [address] Aug, Onychomycosis B35.1 ; Ulcer of heel, left, with unspecified severity L97.429 and DM neuro manif type II E11.49 [place] [address] [place] [id number] [address] [place] [address] Jul, Diabetes mellitus E11.9 ; Hy pertension I10 ; Cigarette nicotine dependence with nicotine-induced disorder F17.219 and CAD (coronary artery disease) I25.10 [place] [id number] [address] [place] [address] Jul, Left leg claudication I73.9 ; Right leg claudication I73.9 ; CAD (coronary artery disease) I25.10 ; Hypertension I10 and Hyperlipidemia E78.5 [place] [address] [facility] [id number] [address] [place] [address] Jul, Ulcer of heel, left, with un specified severity L97.429 and DM neuro manif type II E11.49 [place] [address] [facility] [id number] [address] [place] [address] June, Ulcer of heel, left, with un specified severity L97.429 and Ulcer of other part of foot L97.509 [place] [address] [facility] [id number] [address] [place] [address] June, Ulcer of heel, left, with un specified severity L97.429 and Ulcer of foot, left, with unspecified severity L97.529 [place] [address] [facility] [id number] [address] [place] [address] May, [place] [address] [facility] [id number] [address] [place] [address] May, [place] [address] [facility] [id number] [address] [place] [address] Apr, DM neuro manif type II E11.4 9 ; Hypertension I10 and Sleep apnea in adult G47.33 [place] [address] [facility] [id number] [address] [place] [address] Apr, [place] [address] [facility] [id number] [address] [place] [address] Apr, Ulcer of foot L97.509 and DM neuro manif type II E11.49 [place] [address] [facility] [id number] [address] [place] [address] Apr, Ulcer of other part of foot L97.509 and DM neuro manif type II E11.49 [place] [address] [facility] [id number] [address] [place] [address] Apr, Onychomycosis B35.1 ; Ingrow n toenail L60.0 ; Impaired circulation I99.9 and DM neuro manif type II E11.[address] [address] 08 Mar, 2015 Ulcer of other part of foot L97.509 ; Onychomycosis B35.1 and Diabetes mellitus E11.[address] [address] 19 Dec, 2014 Encounter for immunization Z 23 ; Hypertension I10 and Diabetes mellitus E11.[address] [address] Dec, [address] [address] Dec, CAD (coronary artery disease ) I25.10 ; Hypertension I10 ; Left leg claudication I73.9 and Hyperlipidemia E78.[address] [address] Nov, Onychomycosis B35.1 and Vin ertoe M20.[address] [address] Sep, Coronary atherosclerosis of unspecified type of vessel, rampart or graft 414.[address] [address] Sep, Coronary atherosclerosis of unspecified type of vessel, rampart or graft 414.00 and Diabetes 250.00 [place] [address] [address] May, [address] [address] May, [place] [address] [address] Apr, [address] [address] Apr, [facility] [address] [id number] [address] [place] [address], [place] [address] Apr, [facility] [address] [id number] [address] [place] [address], [place] [address] Apr, [facility] [address] [id number] [address] [place] [address], [place] [address] Mar, [facility] [address] [id number] [address] [place] [address], [place] [address] Mar, [facility] [address] [id number] [address] [place] [address], [place] [address] Jan, [facility] [address] [id number] [address] [place] [address], [place] [address] Jan, [facility] [address] [id number] [address] [place] [address], [place] [address] Jan, [facility] [address] [id number] [address] [place] [address], [place] [address] Jan, [facility] [address] [id number] [address] [place] [address], [place] [address] Jan, [facility] [address] [id number] [address] [place] [address], [place] [address] Jan, [facility] [address] [id number] [address] [place] [address], [place] [address] Jan, [facility] [address] [id number] [address] [place] [address], [place] [address] Jan, [facility] [address] [id number] [address] [place] [address], [place] [address] Jan, [facility] [address] [id number] [address] [place] [address], [place] [address] Jan, [facility] [address] [id number] [address] [place] [address], [place] [address] Jan, [facility] [address] [id number] [address] [place] [address], [place] [address] Nov, [facility] [address] [id number] [address] [place] [address], [place] [address] Nov, [facility] [address] [id number] [address] [place] [address], [place] [address] Nov, [facility] [address] [id number] [address] [place] [address], [place] [address] Nov, [facility] [address] [id number] [address] [place] [address], [place] [address] 15 Nov, 2013 [facility] [address] [id number] [address] [place] [address], [place] [address] 15 Nov, 2013 [facility] [address] [id number] [address] [place] [address], [place] [address] 19 Oct, 2013 [facility] [address] [id number] [address] [place] [address], [place] [address] 19 Oct, 2013 [facility] [address] [id number] [address] [place] [address], [place] [address] 19 Oct, 2013 [facility] [address] [id number] [address] [place] [address], [place] [address] 19 Oct, 2013 [facility] [address] [id number] [address] [place] [address], [place] [address] 05 Oct, 2013 [facility] [address] [id number] [address] [place] [address], [place] [address] 05 Oct, 2013 [facility] [address] [id number] [address] [place] [address], [place] [address] 20 Sep, 2013 [facility] [address] [id number] [address] [place] [address], [place] [address] Sep, [facility] [address] [id number] [address] [place] [address], [place] [address] 15 Sep, 2013 [facility] [address] [id number] [address] [place] [address], [place] [address] Sep, [facility] [address] [id number] [address] [place] [address], [place] [address] Sep, [facility] [address] [id number] [address] [place] [address], [place] [address] Sep, [facility] [address] [id number] [address] [place] [address], [place] [address] Aug, [facility] [address] [id number] [address] [place] [address], [place] [address] Aug, [facility] [address] [id number] [address] [place] [address], [place] [address] Aug, [facility] [address] [id number] [address] [place] [address], [place] [address] Aug, [facility] [address] [id number] [address] [place] [address], [place] [address] Aug, [facility] [address] [id number] [address] [place] [address], [place] [address] Aug, [facility] [address] [id number] [address] [place] [address], [place] [address] Jul, [facility] [address] [id number] [address] [place] [address], [place] [address] Jul, [facility] [address] [id number] [address] [place] [address], [place] [address] Jul, [facility] [address] [id number] [address] [place] [address], [place] [address] Jul, [facility] [address] [id number] [address] [place] [address], [place] [address] June, [facility] [address] [id number] [address] [place] [address], [place] [address] June, [facility] [address] [id number] [address] [place] [address], [place] [address] June, [facility] [address] [id number] [address] [place] [address] June, [facility] [address] [id number] [address] [place] [address], [place] [address] May, [facility] [address] [id number] [address] [place] [address], [place] [address] May, [facility] [address] [id number] [address] [place] [address], [place] [address] May, [facility] [address] [id number] [address] [place] [address], [place] [address] May, [facility] [address] [id number] [address] [place] [address], [place] [address] May, [facility] [address] [id number] [address] [place] [address], [place] [address] May, [facility] [address] [id number] [address] [place] [address], [place] [address] Apr, [facility] [address] [id number] [address] [place] [address], [place] [address] Apr, [facility] [address] [id number] [address] [place] [address], [place] [address] Apr, [facility] [address] [id number] [address] [place] [address], [place] [address] Apr, [facility] [address] [id number] [address] [place] [address], [place] [address] Apr, [facility] [address] [id number] [address] [place] [address], [place] [address] Apr, [facility] [address] [id number] [address] [place] [address], [place] [address] Apr, [facility] [address] [id number] [address] [place] [address], [place] [address] Jan, [facility] [address] [id number] [address] [place] [address], [place] [address] Jan, [facility] [address] [id number] [address] [place] [address], [place] [address] Jan, [facility] [address] [id number] [address] [place] [address], [place] [address] Jan, [facility] [address] [id number] [address] [place] [address], [place] [address] Jan, [facility] [address] [id number] [address] [place] [address], [place] [address] Jan, [facility] [address] [id number] [address] [place] [address], [place] [address] Dec, [facility] [address] [id number] [address] [place] [address], [place] [address] Dec, [facility] [address] [id number] [address] [place] [address], [place] [address] Dec, [facility] [address] [id number] [address] [place] [address], [place] [address] Dec, [facility] [address] [id number] [address] [place] [address], [place] [address] Dec, [facility] [address] [id number] [address] [place] [address], [place] [address] Dec, [facility] [address] [id number] [address] [place] [address], [place] [address] Nov, [facility] [address] [id number] [address] [place] [address], [place] [address] Oct, [facility] [address] [id number] [address] [place] [address], [place] [address] Oct, [facility] [address] [id number] [address] [place] [address], [place] [address] Aug, [facility] [address] [id number] [address] [place] [address], [place] [address] Aug, [facility] [address] [id number] [address] [place] [address], [place] [address] Jul, [facility] [address] [id number] [address] [place] [address], [place] [address] June, [facility] [address] [id number] [address] [place] [address], [place] [address] Apr, [facility] [address] [id number] [address] [place] [address], [place] [address] Apr, [facility] [address] [id number] [address] [place] [address], [place] [address] Apr, [facility] [address] [id number] [address] [place] [address], [place] [address] Apr, [facility] [address] [id number] [address] [place] [address], [place] [address] Mar, [facility] [address] [id number] [address] [place] [address], [place] [address] Jan, [facility] [address] [id number] [address] [place] [address], [place] [address] Jan, [facility] [address] [id number] [address] [place] [address], [place] [address] Jan, [facility] [address] [id number] [address] [place] [address], [place] [address] Jan, [facility] [address] [id number] [address] [place] [address], [place] [address] Jan, [facility] [address] [id number] [address] [place] [address], [place] [address] Jan, [facility] [address] [id number] [address] [place] [address], [place] [address] Jan, [facility] [address] [id number] [address] [place] [address], [place] [address] Jan, [facility] [address] [id number] [address] [place] [address], [place] [address] 16 Dec, 2011 [facility] [address] [id number] [address] [place] [address], [place] [address] 16 Dec, 2011 [facility] [address] [id number] [address] [place] [address], [place] [address] 16 Dec, 2011 [facility] [address] [id number] [address] [place] [address], [place] [address] 16 Dec, 2011 [facility] [address] [id number] [address] [place] [address], [place] [address] 17 Nov, 2011 [facility] [address] [id number] [address] [place] [address], [place] [address] 24 Oct, 2011 [facility] [address] [id number] [address] [place] [address], [place] [address] 14 Aug, 2011 [facility] [address] [id number] [address] [place] [address], [place] [address] 14 Aug, 2011 [facility] [address] [id number] [address] [place] [address], [place] [address] 14 Aug, 2011 [facility] [address] [id number] [address] [place] [address], [place] [address] 13 Aug, 2011 [facility] [address] [id number] [address] [place] [address], [place] [id number] 13 Aug, 2011 [facility] [address] [id number] [address] [place] [address], [place] [address] 20 May, 2011 [facility] [address] [id number] [address] [place] [address], [place] [id number] 16 Apr, 2011 [facility] [address] [id number] [address] [place] [address], [place] [address] 16 Apr, 2011 [facility] [address] [id number] [address] [place] [address], [place] [address] Mar, [facility] [address] [id number] [address] [place] [address], [place] [address] Mar, [facility] [address] [id number] [address] [place] [address] [address] Dec, [facility] [address] [facility] [id number] [address] [address] Dec, [facility] [address] [facility] [id number] [address] [place] [id number] Dec, IMMUNIZATIONS No Known Immunizations SOCIAL HISTORY Never Assessed REASON FOR VISIT PLAN OF CARE VITAL SIGNS Blood pressure systolic 126 mmHg 2014-04-28 Blood pressure diastolic 80 mmHg 2014-04-28 MEDICATIONS Unknown Medications RESULTS No Results PROCEDURES Procedure Date Ordered Result Body Site DEBRIDE NAIL, 6 OR MORE Apr 28, 2014 INSTRUCTIONS MEDICATIONS ADMINISTERED No Known Medications [...]
--- OUTSIDE RECORDS SUMMARY | 2019-06-21 16:31 | XMS REPORT ---
Author Author Nick ABDI Organization [facility] Address [address] [place] [address] Care Team Providers Care Car Racer Name Role Phone ELVIN ABDI Unavailable PROBLEMS Type Condition ICD9-CM Code IJG29-QS Code Onset Dates Condition S tatus SNOMED Code Problem CAD (coronary artery disease) I25.10 Active 34361534 Problem Hypertension I10 Active 9713548 3 Problem Diabetes mellitus E11.9 Active 73 902989 Problem Hyperlipidemia E78.5 Active 65764 004 Problem Impaired circulation I99.9 Active 10596509 Problem DM neuro manif type II E11.49 Active 78446213 Problem Reactive depression F32.9 Active 24567990 Problem Cigarette nicotine dependence with nicotine-induced di sorder F17.219 Active 79615603 Problem Hypoglycemia E16.2 Active 9661159 03 Problem 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 Active 65865 005 Problem Carotid artery disease I77.9 Active 584845885 Problem Tobacco abuse Z72.0 Active 495776 05 Problem Arthritis M19.90 Active 6164105 Problem Panlobular emphysema J43.1 Active 1842623 Problem Hammertoe M20.40 Active 709578814 Problem Left leg claudication I73.9 Active 720677493 Problem Hypercholesteremia E78.00 Active 2 72512318 Problem Type 2 diabetes mellitus E11.9 Activ e 75607895 Problem PAD (peripheral artery disease) I73.9 Active 224506580 Problem Essential (primary) hypertension I10 Active 42096063 ALLERGIES No Information ENCOUNTERS Encounter Location Date Diagnosis [address] [address] Oct, [facility] [address] [facility] [id number] [address] [place] [address] Oct, [facility] [address] [facility] [id number] [address] [place] [address] Sep, [address] [address] Aug, [facility] [address] [facility] [id number] [address] [place] [address] Aug, Panlobular emphysema J43.[address] [address] Aug, Panlobular emphysema J43.[address] [address] Aug, Panlobular emphysema J43.[address] [address] Jul, Encounter for screening for malignant ne oplasm of colon Z12.11 ; CAD (coronary artery disease) I25.10 ; Cigarette nicotine dependence with nicotine- induced disorder F17.219 ; Essential (primary) hypertension I10 ; Panlobular emphysema J43.1 and DM neuro manif type II E11.[address] [address] Jul, Type 2 diabetes mellitus E11.[address] [address] Jul, [place] [address] [place] [id number] [address] [place] [address] Jul, Onychomycosis B35.1 and DM n euro manif type II E11.49 [place] [address] [facility] [id number] [address] [place] [address] June, Diabetes mellitus E11.[address] [address] May, [address] [address] Apr, Type 2 diabetes mellitus E11.9 ; [...] M20.40 ; Arthritis M19.90 and Hypoglycemia E16.2 [facility] [address] [facility] [id number] [address] [place] [address] Apr, Diabetes mellitus E11.9 [place] [address] [facility] [id number] [address] [place] [address] Apr, Onychomycosis B35.1 ; Impair ed circulation I99.9 and DM neuro manif type II E11.49 [place] [address] [facility] [id number] [address] [place] [address] Jan, Diabetes mellitus E11.9 ; Hy pertension I10 and Encounter for immunization Z23 [place] [address] [facility] [id number] [address] [place] [address] Jan, Diabetes mellitus E11.9 [place] [address] [facility] [id number] [address] [place] [address] Jan, [place] [address] [facility] [id number] [address] [place] [address] Jan, [facility] [address] [facility] [id number] [address] [place] [address] Oct, Onychomycosis B35.1 ; DM chuck ro manif type II E11.49 and Impaired circulation I99.9 [facility] [address] [facility] [id number] [address] [place] [address] Sep, [facility] [address] [facility] [id number] [address] [place] [address] Aug, Hypoglycemia E16.2 [facility] [address] [facility] [id number] [address] [place] [address] Aug, [facility] [address] [facility] [id number] [address] [place] [address] Jul, [facility] [address] [facility] [id number] [address] [place] [address] Jul, Elevated blood sugar R73.9 a nd Neck pain M54.2 [facility] [address] [place] [id number] [place] [address] Jul, [place] [address] [address] Jul, Onychomycosis B35.1 and DM n euro manif type II E11.49 [place] [address] [address] Jul, [place] [address] [address] June, Hyperlipidemia E78.5 [place] [address] [address] June, Diabetes mellitus E11.9 ; CA D (coronary artery disease) I25.10 ; Arthritis M19.90 and Hyperlipidemia E78.5 [place] [address] [address] June, [place] [address] [address] Apr, Onychomycosis B35.1 ; DM chuck ro manif type II E11.49 and Hammertoe M20.40 [place] [address] [place] [id number] [address] [place] [address] Apr, Diabetes mellitus E11.9 and Hypertension I10 [place] [address] [address] Mar, Hypertension I10 and Diabete s mellitus E11.9 [place] [address] [place] [id number] [address] [place] [address] Mar, Hypertension I10 and Diabete s mellitus E11.9 [place] [address] [address] Jan, Onychomycosis B35.1 and DM n euro manif type II E11.49 [place] [address] [place] [id number] [address] [place] [address] Dec, [place] [address] [address] Dec, [place] [address] [address] Dec, Hypertension I10 and Diabete s mellitus E11.9 [place] [address] [address] Oct, Encounter for immunization Z 23 ; Diabetes mellitus E11.9 ; Hypertension I10 and Cigarette nicotine dependence with nicotine-induced disorder F17.219 [place] [address] [address] Oct, Diabetes mellitus E11.9 [place] [address] [address] Oct, Onychomycosis B35.1 ; DM chuck ro manif type II E11.49 and Hammertoe M20.40 [place] [address] [address] Jul, Diabetes mellitus E11.9 [place] [address] [address] Jul, Onychomycosis B35.1 ; Hammer toe M20.40 and DM neuro manif type II E11.49 [place] [address] [place] [id number] [address] [place] [address] May, Diabetes mellitus E11.9 [place] [address] [place] [id number] [place] [address] May, Diabetes mellitus E11.9 [place] [address] [address] Nov, Diabetes mellitus E11.9 ; Hy pertension I10 ; Reactive depression F32.9 and Encounter for immunization Z23 [place] [address] [address] Oct, Ulcer of other part of foot L97.509 [place] [address] [place] [id number] [address] [place] [address] Sep, Onychomycosis B35.1 ; Ulcer of heel, left, with unspecified severity L97.429 and DM neuro manif type II E11.49 [place] [address] [place] [address] Sep, [place] [address] [address] Sep, Ulcer of heel, left, with un specified severity L97.429 [place] [address] [address] Aug, Onychomycosis B35.1 ; Ulcer of heel, left, with unspecified severity L97.429 and DM neuro manif type II E11.49 [place] [address] [address] Jul, Diabetes mellitus E11.9 ; Hy pertension I10 ; Cigarette nicotine dependence with nicotine-induced disorder F17.219 and CAD (coronary artery disease) I25.10 [place] [address] [address] Jul, Left leg claudication I73.9 ; Right leg claudication I73.9 ; CAD (coronary artery disease) I25.10 ; Hypertension I10 and Hyperlipidemia E78.5 [place] [address] [address] Jul, Ulcer of heel, left, with un specified severity L97.429 and DM neuro manif type II E11.49 [place] [address] [place] [id number] [address] [place] [address] June, Ulcer of heel, left, with un specified severity L97.429 and Ulcer of other part of foot L97.509 [place] [address] [place] [address] June, Ulcer of heel, left, with un specified severity L97.429 and Ulcer of foot, left, with unspecified severity L97.529 [place] [address] [place] [address] May, [place] [address] [place] [id number] [place] [address] May, [place] [address] [address] Apr, DM neuro manif type II E11.4 9 ; Hypertension I10 and Sleep apnea in adult G47.33 [place] [address] [address] Apr, [place] [address] [place] [id number] [place] [address] Apr, Ulcer of foot L97.509 and DM neuro manif type II E11.49 [place] [address] [place] [id number] [place] [address] Apr, Ulcer of other part of foot L97.509 and DM neuro manif type II E11.49 [place] [address] [place] [id number] [address] [place] [address] Apr, Onychomycosis B35.1 ; Ingrow n toenail L60.0 ; Impaired circulation I99.9 and DM neuro manif type II E11.49 [place] [address] [place] [id number] [address] [place] [address] Mar, Ulcer of other part of foot L97.509 ; Onychomycosis B35.1 and Diabetes mellitus E11.9 [place] [address] [place] [id number] [address] [place] [address] Dec, Encounter for immunization Z 23 ; Hypertension I10 and Diabetes mellitus E11.9 [facility] [address] [facility] [id number] [address] [place] [address] Dec, [facility] [address] [facility] [id number] [address] [place] [address] Dec, CAD (coronary artery disease ) I25.10 ; Hypertension I10 ; Left leg claudication I73.9 and Hyperlipidemia E78.5 [facility] [address] [facility] [id number] [address] [place] [address] Nov, Onychomycosis B35.1 and Vin ertoe M20.40 [facility] [address] [id number] [address] [place] [address] Sep, Coronary atherosclerosis of unspecified type of vessel, [place] or graft 414.00 [place] [address] [place] [id number] [address] [place] [address] Sep, Coronary atherosclerosis of unspecified type of vessel, [place] or graft 414.00 and Diabetes 250.00 [facility] [address] [facility] [id number] [address] [place] [address] May, [facility] [address] [facility] [id number] [address] [place] [address] May, [facility] [address] [facility] [id number] [address] [place] [address] Apr, [facility] [address] [facility] [id number] [address] [place] [address] Apr, [facility] [address] [facility] [id number] [address] [place] [address] Apr, [facility] [address] [facility] [id number] [address] [place] [address] Apr, [facility] [address] [facility] [id number] [address] [place] [address] Mar, [facility] [address] [facility] [id number] [address] [place] [address] Mar, [facility] [address] [id number] [address] [place] [address], [place] [address] Jan, [facility] [address] [id number] [address] [place] [address], [place] [address] Jan, [facility] [address] [id number] [address] [place] [address], [place] [address] Jan, [facility] [address] [id number] [address] [place] [address], [place] [address] Jan, [facility] [address] [id number] [address] [place] [address], [place] [address] Jan, [facility] [address] [id number] [address] [place] [address], [place] [address] Jan, [facility] [address] [id number] [address] [place] [address], [place] [address] Jan, [facility] [address] [id number] [address] [place] [address], [place] [address] Jan, [facility] [address] [id number] [address] [place] [address], [place] [address] Jan, [facility] [address] [id number] [address] [place] [address], [place] [address] Jan, [facility] [address] [id number] [address] [place] [address], [place] [address] Jan, [facility] [address] [id number] [address] [place] [address], [place] [address] Nov, [facility] [address] [id number] [address] [place] [address], [place] [address] Nov, [facility] [address] [id number] [address] [place] [address], [place] [address] Nov, [facility] [address] [id number] [address] [place] [address], [place] [address] Nov, [facility] [address] [id number] [address] [place] [address], [place] [address] 15 Nov, 2013 [facility] [address] [id number] [address] [place] [address], [place] [address] 15 Nov, 2013 [facility] [address] [id number] [address] [place] [address], [place] [address] 19 Oct, 2013 [facility] [address] [id number] [address] [place] [address], [place] [address] 19 Oct, 2013 [facility] [address] [id number] [address] [place] [address], [place] [address] 19 Oct, 2013 [facility] [address] [id number] [address] [place] [address], [place] [address] 19 Oct, 2013 [facility] [address] [id number] [address] [place] [address], [place] [address] 05 Oct, 2013 [facility] [address] [id number] [address] [place] [address], [place] [address] 05 Oct, 2013 [facility] [address] [id number] [address] [place] [address], [place] [address] Sep, [facility] [address] [id number] [address] [place] [address], [place] [address] Sep, [facility] [address] [id number] [address] [place] [address], [place] [address] Sep, [facility] [address] [id number] [address] [place] [address], [place] [address] Sep, [facility] [address] [id number] [address] [place] [address], [place] [address] Sep, [facility] [address] [id number] [address] [place] [address], [place] [address] Sep, [facility] [address] [id number] [address] [place] [address], [place] [address] Aug, [facility] [address] [id number] [address] [place] [address], [place] [address] Aug, [facility] [address] [id number] [facility] [address] Aug, [facility] [address] [id number] [facility] [place] [address] Aug, [facility] [address] [id number] [facility] [place] [address] Aug, [facility] [address] [id number] [address] [place] [address], [place] [address] Aug, [facility] [address] [id number] [address] [place] [address], [place] [address] Jul, [facility] [address] [id number] [address] [place] [address], [place] [address] Jul, [facility] [address] [id number] [address] [place] [address], [place] [address] Jul, [facility] [address] [id number] [address] [place] [address], [place] [address] Jul, [facility] [address] [id number] [address] [place] [address], [place] [address] June, [facility] [address] [id number] [address] [place] [address], [place] [address] June, [facility] [address] [id number] [address] [place] [address], [place] [address] June, [facility] [address] [id number] [address] [place] [address], [place] [address] June, [facility] [address] [id number] [address] [place] [address], [place] [address] May, [facility] [address] [id number] [address] [place] [address], [place] [address] May, [facility] [address] [id number] [address] [place] [address], [place] [address] May, [facility] [address] [id number] [address] [place] [address], [place] [address] May, [facility] [address] [id number] [address] [place] [address], [place] [address] May, [facility] [address] [id number] [address] [place] [address], [place] [address] May, [facility] [address] [id number] [address] [place] [address], [place] [address] Apr, [facility] [address] [id number] [address] [place] [address], [place] [address] Apr, [facility] [address] [id number] [address] [place] [address], [place] [address] Apr, [facility] [address] [id number] [address] [place] [address], [place] [address] Apr, [facility] [address] [id number] [address] [place] [address], [place] [address] Apr, [facility] [address] [id number] [address] [place] [address], [place] [address] 05 Apr, 2013 [facility] [address] [id number] [address] [place] [address], [place] [address] 05 Apr, 2013 [facility] [address] [id number] [address] [place] [address], [place] [address] Jan, [facility] [address] [id number] [address] [place] [address], [place] [address] Jan, [facility] [address] [id number] [address] [place] [address], [place] [address] Jan, [facility] [address] [id number] [address] [place] [address], [place] [address] Jan, [facility] [address] [id number] [address] [place] [address], [place] [address] Jan, [facility] [address] [id number] [address] [place] [address], [place] [address] Jan, [facility] [address] [id number] [address] [place] [address], [place] [address] 15 Dec, 2012 [facility] [address] [id number] [address] [place] [address], [place] [address] Dec, [facility] [address] [id number] [address] [place] [address], [place] [address] Dec, [facility] [address] [id number] [address] [place] [address], [place] [address] Dec, [facility] [address] [id number] [address] [place] [address], [place] [address] Dec, [facility] [address] [id number] [address] [place] [address], [place] [address] Dec, [facility] [address] [id number] [address] [place] [address], [place] [address] Nov, [facility] [address] [id number] [address] [place] [address], [place] [address] Oct, [facility] [address] [id number] [address] [place] [address], [place] [address] Oct, [facility] [address] [id number] [address] [place] [address], [place] [address] Aug, [facility] [address] [id number] [address] [place] [address], [place] [address] Aug, [facility] [address] [id number] [address] [place] [address], [place] [address] Jul, [facility] [address] [id number] [address] [place] [address], [place] [address] June, [facility] [address] [id number] [address] [place] [address], [place] [address] Apr, [facility] [address] [id number] [address] [place] [address], [place] [address] Apr, [facility] [address] [id number] [address] [place] [address] [address] 08 Apr, 2012 [facility] [address] [id number] [address] [place] [address], [place] [address] Apr, [facility] [address] [id number] [address] [place] [address], [place] [address] Mar, [facility] [address] [id number] [address] [place] [address], [place] [address] Jan, [facility] [address] [id number] [address] [place] [address], [place] [address] Jan, [facility] [address] [id number] [address] [place] [address], [place] [address] Jan, [facility] [address] [id number] [address] [place] [address], [place] [address] Jan, [facility] [address] [id number] [address] [place] [address], [place] [address] Jan, [facility] [address] [id number] [address] [place] [address], [place] [address] Jan, [facility] [address] [id number] [address] [place] [address], [place] [address] Jan, [facility] [address] [id number] [address] [place] [address], [place] [address] Jan, [facility] [address] [id number] [address] [place] [address], [place] [address] 16 Dec, 2011 [facility] [address] [id number] [address] [place] [id number] 16 Dec, 2011 [facility] [address] [id number] [address] [place] [address], [place] [address] Nov, [facility] [address] [id number] [address] [place] [address], [place] [address] Nov, [facility] [address] [id number] [address] [place] [address], [place] [address] 17 Nov, 2011 [facility] [address] [id number] [address] [place] [id number] 24 Oct, 2011 [facility] [address] [id number] [address] [place] [id number] 14 Aug, 2011 [facility] [address] [id number] [address] [place] [id number] 14 Aug, 2011 [facility] [address] [id number] [address] [place] [id number] 14 Aug, 2011 [facility] [address] [id number] [address] [place] [id number] 13 Aug, 2011 [facility] [address] [id number] [address] [place] [id number] 13 Aug, 2011 [facility] [address] [id number] [address] [place] [id number] Apr, [facility] [address] [id number] [address] [place] [id number] 16 Apr, 2011 [facility] [facility] [address] [id number] [address] [place] [phone] 16 Apr, 2011 [facility] [address] [id number] [address] [place] [id number] Mar, [facility] [address] [id number] [address] [place] [phone] Mar, [facility] [address] [id number] [address] [place] [phone] Dec, [facility] [address] [id number] [address] [place] [phone] Dec, [facility] [address] [id number] [address] [place] [phone] Dec, IMMUNIZATIONS No Known Immunizations SOCIAL HISTORY Never Assessed REASON FOR VISIT PLAN OF CARE VITAL SIGNS MEDICATIONS Unknown Medications RESULTS No Results PROCEDURES No Known procedures INSTRUCTIONS MEDICATIONS ADMINISTERED No Known Medications MEDICAL (GENERAL) HISTORY Type Description Date Medical History Type 2 diabetes mellitus Medical History Hypercholesteremia Medical History Essential (primary) hypertension Medical History Rebekah tumor Medical History CAD (coronary artery disease) [...]
--- OUTSIDE RECORDS SUMMARY | 2019-06-21 16:31 | XMS REPORT ---
Author Author Nick Roberts Doctor Organization [facility] Address Unknown Phone Unavailable Care Team Providers Care Broke Beater Operator Name Role Phone Migration, Doctor Unavailable Unavailable PROBLEMS Type Condition ICD9-CM Code IRB39-WG Code Onset Dates Condition S tatus SNOMED Code Problem CAD (coronary artery disease) I25.10 Active 34637724 Problem Hypertension I10 Active 3146767 3 Problem Diabetes mellitus E11.9 Active 73 552674 Problem Hyperlipidemia E78.5 Active 08063 004 Problem Impaired circulation I99.9 Active 85218763 Problem DM neuro manif type II E11.49 Active 99580978 Problem Reactive depression F32.9 Active 23137925 Problem Cigarette nicotine dependence with nicotine-induced di sorder F17.219 Active 97839994 Problem Hypoglycemia E16.2 Active 9602463 03 Problem 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 Active 78948 005 Problem Carotid artery disease I77.9 Active 692549145 Problem Tobacco abuse Z72.0 Active 772791 05 Problem Arthritis M19.90 Active 9857315 Problem Panlobular emphysema J43.1 Active 7665179 Problem Hammertoe M20.40 Active 407618233 Problem Left leg claudication I73.9 Active 082308137 Problem Hypercholesteremia E78.00 Active 2 30714333 Problem Type 2 diabetes mellitus E11.9 Activ e 44863118 Problem PAD (peripheral artery disease) I73.9 Active 519896785 Problem Essential (primary) hypertension I10 Active 78169053 ALLERGIES No Information ENCOUNTERS Encounter Location Date Diagnosis [facility] [address] [place] [address] Oct, [facility] [address] [facility] [id number] [address] [place] [address] Oct, [facility] [address] [place] [address] Sep, [facility] [address] [facility] [id number] [address] [place] [address] Sep, [address] [address] Aug, [facility] [address] [facility] [id number] [address] [place] [address] Aug, Panlobular emphysema J43.[address] [address] Aug, Panlobular emphysema J43.[address] [address] Aug, Panlobular emphysema J43.[address] [address] Jul, Encounter for screening for malignant ne oplasm of colon Z12.11 ; CAD (coronary artery disease) I25.10 ; Cigarette nicotine dependence with nicotine- induced disorder F17.219 ; Essential (primary) hypertension I10 ; Panlobular emphysema J43.1 and DM neuro manif type II E11.[address] [address] Jul, Type 2 diabetes mellitus E11.[address] [address] Jul, [place] [address] [place] [id number] [address] [place] [address] Jul, Onychomycosis B35.1 and DM n euro manif type II E11.49 [place] [address] [facility] [id number] [address] [place] [address] June, Diabetes mellitus E11.[address] [address] May, [address] [address] Apr, Type 2 diabetes mellitus E11.9 ; [...] M20.40 ; Arthritis M19.90 and Hypoglycemia E16.2 [facility] [address] [facility] [id number] [address] [place] [address] Apr, Diabetes mellitus E11.9 [place] [address] [facility] [id number] [address] [place] [address] Apr, Onychomycosis B35.1 ; Impair ed circulation I99.9 and DM neuro manif type II E11.49 [place] [address] [facility] [id number] [address] [place] [address] Jan, Diabetes mellitus E11.9 ; Hy pertension I10 and Encounter for immunization Z23 [place] [address] [facility] [id number] [address] [place] [address] Jan, Diabetes mellitus E11.9 [place] [address] [facility] [id number] [address] [place] [address] Jan, [place] [address] [facility] [id number] [address] [place] [address] Jan, [facility] [address] [facility] [id number] [address] [place] [address] Oct, Onychomycosis B35.1 ; DM chuck ro manif type II E11.49 and Impaired circulation I99.9 [facility] [address] [facility] [id number] [address] [place] [address] Sep, [facility] [address] [facility] [id number] [address] [place] [address] Aug, Hypoglycemia E16.2 [facility] [address] [facility] [id number] [address] [place] [address] Aug, [facility] [address] [facility] [id number] [address] [place] [address] Jul, [facility] [address] [facility] [id number] [address] [place] [address] Jul, Elevated blood sugar R73.9 a nd Neck pain M54.2 [facility] [address] [place] [id number] [place] [address] Jul, [place] [address] [address] Jul, Onychomycosis B35.1 and DM n euro manif type II E11.49 [place] [address] [address] Jul, [place] [address] [address] June, Hyperlipidemia E78.5 [place] [address] [address] June, Diabetes mellitus E11.9 ; CA D (coronary artery disease) I25.10 ; Arthritis M19.90 and Hyperlipidemia E78.5 [place] [address] [address] June, [place] [address] [address] Apr, Onychomycosis B35.1 ; DM chuck ro manif type II E11.49 and Hammertoe M20.40 [place] [address] [place] [id number] [address] [place] [address] Apr, Diabetes mellitus E11.9 and Hypertension I10 [place] [address] [address] Mar, Hypertension I10 and Diabete s mellitus E11.9 [place] [address] [place] [id number] [address] [place] [address] Mar, Hypertension I10 and Diabete s mellitus E11.9 [place] [address] [address] Jan, Onychomycosis B35.1 and DM n euro manif type II E11.49 [place] [address] [place] [id number] [address] [place] [address] Dec, [place] [address] [address] Dec, [place] [address] [address] Dec, Hypertension I10 and Diabete s mellitus E11.9 [place] [address] [address] Oct, Encounter for immunization Z 23 ; Diabetes mellitus E11.9 ; Hypertension I10 and Cigarette nicotine dependence with nicotine-induced disorder F17.219 [place] [address] [address] Oct, Diabetes mellitus E11.9 [place] [address] [address] Oct, Onychomycosis B35.1 ; DM chuck ro manif type II E11.49 and Hammertoe M20.40 [place] [address] [address] Jul, Diabetes mellitus E11.9 [place] [address] [address] Jul, Onychomycosis B35.1 ; Hammer toe M20.40 and DM neuro manif type II E11.49 [place] [address] [place] [id number] [address] [place] [address] May, Diabetes mellitus E11.9 [place] [address] [place] [id number] [place] [address] May, Diabetes mellitus E11.9 [place] [address] [address] Nov, Diabetes mellitus E11.9 ; Hy pertension I10 ; Reactive depression F32.9 and Encounter for immunization Z23 [place] [address] [address] Oct, Ulcer of other part of foot L97.509 [place] [address] [place] [id number] [address] [place] [address] Sep, Onychomycosis B35.1 ; Ulcer of heel, left, with unspecified severity L97.429 and DM neuro manif type II E11.49 [place] [address] [place] [address] Sep, [place] [address] [address] Sep, Ulcer of heel, left, with un specified severity L97.429 [place] [address] [address] Aug, Onychomycosis B35.1 ; Ulcer of heel, left, with unspecified severity L97.429 and DM neuro manif type II E11.49 [place] [address] [address] Jul, Diabetes mellitus E11.9 ; Hy pertension I10 ; Cigarette nicotine dependence with nicotine-induced disorder F17.219 and CAD (coronary artery disease) I25.10 [place] [address] [address] Jul, Left leg claudication I73.9 ; Right leg claudication I73.9 ; CAD (coronary artery disease) I25.10 ; Hypertension I10 and Hyperlipidemia E78.5 [place] [address] [address] Jul, Ulcer of heel, left, with un specified severity L97.429 and DM neuro manif type II E11.49 [place] [address] [place] [id number] [address] [place] [address] June, Ulcer of heel, left, with un specified severity L97.429 and Ulcer of other part of foot L97.509 [place] [address] [place] [address] June, Ulcer of heel, left, with un specified severity L97.429 and Ulcer of foot, left, with unspecified severity L97.529 [place] [address] [place] [address] May, [place] [address] [place] [id number] [place] [address] May, [place] [address] [address] Apr, DM neuro manif type II E11.4 9 ; Hypertension I10 and Sleep apnea in adult G47.33 [place] [address] [address] Apr, [place] [address] [place] [id number] [place] [address] Apr, Ulcer of foot L97.509 and DM neuro manif type II E11.49 [place] [address] [place] [id number] [place] [address] Apr, Ulcer of other part of foot L97.509 and DM neuro manif type II E11.49 [place] [address] [place] [id number] [address] [place] [address] Apr, Onychomycosis B35.1 ; Ingrow n toenail L60.0 ; Impaired circulation I99.9 and DM neuro manif type II E11.49 [place] [address] [place] [id number] [address] [place] [address] Mar, Ulcer of other part of foot L97.509 ; Onychomycosis B35.1 and Diabetes mellitus E11.9 [place] [address] [place] [id number] [address] [place] [address] Dec, Encounter for immunization Z 23 ; Hypertension I10 and Diabetes mellitus E11.9 [facility] [address] [facility] [id number] [address] [place] [address] Dec, [facility] [address] [facility] [id number] [address] [place] [address] Dec, CAD (coronary artery disease ) I25.10 ; Hypertension I10 ; Left leg claudication I73.9 and Hyperlipidemia E78.5 [facility] [address] [facility] [id number] [address] [place] [address] Nov, Onychomycosis B35.1 and Vin ertoe M20.40 [facility] [address] [id number] [address] [place] [address] Sep, Coronary atherosclerosis of unspecified type of vessel, soboba or graft 414.00 [place] [address] [place] [id number] [address] [place] [address] Sep, Coronary atherosclerosis of unspecified type of vessel, soboba or graft 414.00 and Diabetes 250.00 [facility] [address] [facility] [id number] [address] [place] [address] May, [facility] [address] [facility] [id number] [address] [place] [address] May, [facility] [address] [facility] [id number] [address] [place] [address] Apr, [facility] [address] [facility] [id number] [address] [place] [address] Apr, [facility] [address] [facility] [id number] [address] [place] [address] Apr, [facility] [address] [facility] [id number] [address] [place] [address] Apr, [facility] [address] [facility] [id number] [address] [place] [address] Mar, [facility] [address] [facility] [id number] [address] [place] [address] Mar, [facility] [address] [id number] [address] [place] [address], [place] [address] Jan, [facility] [address] [id number] [address] [place] [address], [place] [address] Jan, [facility] [address] [id number] [address] [place] [address], [place] [address] Jan, [facility] [address] [id number] [address] [place] [address], [place] [address] Jan, [facility] [address] [id number] [address] [place] [address], [place] [address] Jan, [facility] [address] [id number] [address] [place] [address], [place] [address] Jan, [facility] [address] [id number] [address] [place] [address], [place] [address] Jan, [facility] [address] [id number] [address] [place] [address], [place] [address] Jan, [facility] [address] [id number] [address] [place] [address], [place] [address] Jan, [facility] [address] [id number] [address] [place] [address], [place] [address] Jan, [facility] [address] [id number] [address] [place] [address], [place] [address] Jan, [facility] [address] [id number] [address] [place] [address], [place] [address] Nov, [facility] [address] [id number] [address] [place] [address], [place] [address] Nov, [facility] [address] [id number] [address] [place] [address], [place] [address] Nov, [facility] [address] [id number] [address] [place] [address], [place] [address] Nov, [facility] [address] [id number] [address] [place] [address], [place] [address] 15 Nov, 2013 [facility] [address] [id number] [address] [place] [address], [place] [address] 15 Nov, 2013 [facility] [address] [id number] [address] [place] [address], [place] [address] 19 Oct, 2013 [facility] [address] [id number] [address] [place] [address], [place] [address] 19 Oct, 2013 [facility] [address] [id number] [address] [place] [address], [place] [address] 19 Oct, 2013 [facility] [address] [id number] [address] [place] [address], [place] [address] 19 Oct, 2013 [facility] [address] [id number] [address] [place] [address], [place] [address] 05 Oct, 2013 [facility] [address] [id number] [address] [place] [address], [place] [address] 05 Oct, 2013 [facility] [address] [id number] [address] [place] [address], [place] [address] Sep, [facility] [address] [id number] [address] [place] [address], [place] [address] Sep, [facility] [address] [id number] [address] [place] [address], [place] [address] Sep, [facility] [address] [id number] [address] [place] [address], [place] [address] Sep, [facility] [address] [id number] [address] [place] [address], [place] [address] Sep, [facility] [address] [id number] [address] [place] [address], [place] [address] Sep, [facility] [address] [id number] [address] [place] [address], [place] [address] Aug, [facility] [address] [id number] [address] [place] [address], [place] [address] Aug, [facility] [address] [id number] [facility] [place] [address] Aug, [facility] [address] [id number] [facility] [place] [address] Aug, [facility] [address] [id number] [facility] [place] [address] Aug, [facility] [address] [id number] [address] [place] [address], [place] [address] Aug, [facility] [address] [id number] [address] [place] [address], [place] [address] Jul, [facility] [address] [id number] [address] [place] [address], [place] [address] Jul, [facility] [address] [id number] [address] [place] [address], [place] [address] Jul, [facility] [address] [id number] [address] [place] [address], [place] [address] Jul, [facility] [address] [id number] [address] [place] [address], [place] [address] June, [facility] [address] [id number] [address] [place] [address], [place] [address] June, [facility] [address] [id number] [address] [place] [address], [place] [address] June, [facility] [address] [id number] [address] [place] [address], [place] [address] June, [facility] [address] [id number] [address] [place] [address], [place] [address] May, [facility] [address] [id number] [address] [place] [address], [place] [address] May, [facility] [address] [id number] [address] [place] [address], [place] [address] May, [facility] [address] [id number] [address] [place] [address], [place] [address] May, [facility] [address] [id number] [address] [place] [address], [place] [address] May, [facility] [address] [id number] [address] [place] [address], [place] [address] May, [facility] [address] [id number] [address] [place] [address], [place] [address] Apr, [facility] [address] [id number] [address] [place] [address], [place] [address] Apr, [facility] [address] [id number] [address] [place] [address], [place] [address] Apr, [facility] [address] [id number] [address] [place] [address], [place] [address] Apr, [facility] [address] [id number] [address] [place] [address], [place] [address] Apr, [facility] [address] [id number] [address] [place] [address], [place] [address] 05 Apr, 2013 [facility] [address] [id number] [address] [place] [address], [place] [address] 05 Apr, 2013 [facility] [address] [id number] [address] [place] [address], [place] [address] Jan, [facility] [address] [id number] [address] [place] [address], [place] [address] Jan, [facility] [address] [id number] [address] [place] [address], [place] [address] Jan, [facility] [address] [id number] [address] [place] [address], [place] [address] Jan, [facility] [address] [id number] [address] [place] [address], [place] [address] Jan, [facility] [address] [id number] [address] [place] [address], [place] [address] Jan, [facility] [address] [id number] [address] [place] [address], [place] [address] 15 Dec, 2012 [facility] [address] [id number] [address] [place] [address], [place] [address] Dec, [facility] [address] [id number] [address] [place] [address], [place] [address] Dec, [facility] [address] [id number] [address] [place] [address], [place] [address] Dec, [facility] [address] [id number] [address] [place] [address], [place] [address] Dec, [facility] [address] [id number] [address] [place] [address], [place] [address] Dec, [facility] [address] [id number] [address] [place] [address], [place] [address] Nov, [facility] [address] [id number] [address] [place] [address], [place] [address] Oct, [facility] [address] [id number] [address] [place] [address], [place] [address] Oct, [facility] [address] [id number] [address] [place] [address], [place] [address] Aug, [facility] [address] [id number] [address] [place] [address], [place] [address] Aug, [facility] [address] [id number] [address] [place] [address], [place] [address] Jul, [facility] [address] [id number] [address] [place] [address], [place] [address] June, [facility] [address] [id number] [address] [place] [address], [place] [address] Apr, [facility] [address] [id number] [address] [place] [address], [place] [address] Apr, [facility] [address] [id number] [address] [place] [address] [address] 08 Apr, 2012 [facility] [address] [id number] [address] [place] [address], [place] [address] Apr, [facility] [address] [id number] [address] [place] [address], [place] [address] Mar, [facility] [address] [id number] [address] [place] [address], [place] [address] Jan, [facility] [address] [id number] [address] [place] [address], [place] [address] Jan, [facility] [address] [id number] [address] [place] [address], [place] [address] Jan, [facility] [address] [id number] [address] [place] [address], [place] [address] Jan, [facility] [address] [id number] [address] [place] [address], [place] [address] Jan, [facility] [address] [id number] [address] [place] [address], [place] [address] Jan, [facility] [address] [id number] [address] [place] [address], [place] [address] Jan, [facility] [address] [id number] [address] [place] [address], [place] [address] Jan, [facility] [address] [id number] [address] [place] [address], [place] [address] 16 Dec, 2011 [facility] [address] [id number] [address] [place] [id number] 16 Dec, 2011 [facility] [address] [id number] [address] [place] [address], [place] [address] Nov, [facility] [address] [id number] [address] [place] [address], [place] [address] Nov, [facility] [address] [id number] [address] [place] [address], [place] [address] 17 Nov, 2011 [facility] [address] [id number] [address] [place] [id number] 24 Oct, 2011 [facility] [address] [id number] [address] [place] [address] 14 Aug, 2011 [facility] [address] [id number] [address] [place] [address] 14 Aug, 2011 [facility] [address] [id number] [address] [place] [address] 14 Aug, 2011 [facility] [address] [id number] [address] [place] [id number] 13 Aug, 2011 [facility] [address] [id number] [address] [place] [id number] 13 Aug, 2011 [facility] [address] [id number] [address] [place] [address] Apr, [facility] [address] [id number] [address] [place] [id number] 16 Apr, 2011 [facility] [address] [id number] [address] [place] [id number] 16 Apr, 2011 [facility] [address] [address] [id number] [address] [place] [id number] Mar, [facility] [address] [id number] [address] [place] [id number] Mar, [facility] [address] [id number] [address] [place] [id number] Dec, [facility] [address] [id number] [address] [place] [id number] Dec, [facility] [address] [id number] [address] [place] [id number] Dec, IMMUNIZATIONS No Known Immunizations SOCIAL HISTORY [...]
--- OUTSIDE RECORDS SUMMARY | 2019-06-21 16:31 | XMS REPORT ---
Author Author Nick ABDI Organization [facility] [place] Address [address] [place] [address] Care Team Providers Care Methods And Procedures Analyst Name Role Phone ELVIN ABDI Unavailable PROBLEMS Type Condition ICD9-CM Code CTW42-SY Code Onset Dates Condition S tatus SNOMED Code Problem Hyperlipidemia E78.5 Active 82700 004 Problem Left leg claudication I73.9 Active 721590700 Problem DM neuro manif type II E11.49 Active 85274183 Problem Impaired circulation I99.9 Active 41233672 Problem Reactive depression F32.9 Active 03182939 Problem Cigarette nicotine dependence with nicotine-induced di sorder F17.219 Active 39326012 Problem 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 Active 58441 005 Problem Carotid artery disease I77.9 Active 009536161 Problem Hypercholesteremia E78.00 Active 2 90159359 Problem Onychomycosis B35.1 Active 148730 008 Problem Arthritis M19.90 Active 7419123 Problem Panlobular emphysema J43.1 Active 4726291 Problem Hammertoe M20.40 Active 816398000 Problem Type 2 diabetes mellitus E11.9 Activ e 44663582 Problem Essential (primary) hypertension I10 Active 39076580 Problem Tobacco abuse Z72.0 Active 377221 05 Problem PAD (peripheral artery disease) I73.9 Active 905278729 ALLERGIES No Information ENCOUNTERS Encounter Location Date Diagnosis [facility] [place] [address] [facility] [place] [facility] [id number] [address] [place] [address] Jan, [address] [address] Oct, [facility] [place] [address] [facility] [place] [facility] [id number] [address] [place] [address] Oct, Onychomycosis B35.1 ; Diabet es mellitus E11.9 and Impaired circulation I99.[address] [facility] [address] [address] Oct, Diabetes mellitus E11.9 and Hypertension I10 [address] [address] Oct, Hypertension I10 [address] [address] Sep, [facility] [place] [address] [id number] [address] [place] [address] Sep, [address] [address] Aug, [facility] [place] [address] [id number] [address] [place] [address] Aug, Panlobular emphysema J43.[address] [address] Aug, Panlobular emphysema J43.[address] [address] Aug, Panlobular emphysema J43.[address] [address] Jul, Encounter for screening for malignant ne oplasm of colon Z12.11 ; CAD (coronary artery disease) I25.10 ; Cigarette nicotine dependence with nicotine- induced disorder F17.219 ; Essential (primary) hypertension I10 ; Panlobular emphysema J43.1 and DM neuro manif type II E11.[address] [address] Jul, Type 2 diabetes mellitus E11.[address] [address] Jul, [facility] [place] [address] [id number] [address] [place] [address] Jul, Onychomycosis B35.1 and DM n euro manif type II E11.49 [facility] [place] [address] [id number] [address] [place] [address] June, Diabetes mellitus E11.[address] [facility] [address] May, [address] [address] Apr, Type 2 diabetes mellitus E11.9 ; [...] M20.40 ; Arthritis M19.90 and Hypoglycemia E16.2 [place] [id number] [place] [address] Apr, Diabetes mellitus E11.9 [place] [address] [place] [id number] [address] [place] [address] Apr, Onychomycosis B35.1 ; Impair ed circulation I99.9 and DM neuro manif type II E11.49 [place] [address] [facility] [place] [facility] [id number] [address] [place] [address] Jan, Diabetes mellitus E11.9 ; Hy pertension I10 and Encounter for immunization Z23 [place] [address] [facility] [place] [facility] [id number] [address] [place] [address] Jan, Diabetes mellitus E11.9 [place] [address] [facility] [place] [id number] [address] [place] [address] Jan, [place] [address] [facility] [place] [id number] [address] [place] [address] Jan, [place] [address] [facility] [place] [facility] [id number] [address] [place] [address] Oct, Onychomycosis B35.1 ; DM chuck ro manif type II E11.49 and Impaired circulation I99.9 [place] [address] [id number] [address] [place] [address] Sep, [facility] [place] [address] [facility] [place] [facility] [id number] [address] [place] [address] Aug, Hypoglycemia E16.2 [facility] [place] [address] [facility] [place] [facility] [id number] [address] [place] [address] Aug, [facility] [place] [address] [facility] [place] [id number] [address] [place] [address] Jul, [facility] [place] [address] [facility] [place] [id number] [address] [place] [address] Jul, Elevated blood sugar R73.9 a nd Neck pain M54.2 [facility] [place] [address] [facility] [place] [id number] [address] [place] [address] Jul, [facility] [place] [address] [facility] [place] [facility] [id number] [address] [place] [address] Jul, Onychomycosis B35.1 and DM n euro manif type II E11.49 [facility] [place] [address] [facility] [place] [facility] [id number] [address] [place] [address] Jul, [facility] [place] [address] [facility] [place] [facility] [id number] [address] [place] [address] June, Hyperlipidemia E78.5 [facility] [place] [address] [facility] [place] [facility] [id number] [address] [place] [address] June, Diabetes mellitus E11.9 ; CA D (coronary artery disease) I25.10 ; Arthritis M19.90 and Hyperlipidemia E78.5 [facility] [place] [address] [facility] [place] [id number] [address] [place] [address] June, [facility] [place] [address] [facility] [place] [facility] [id number] [address] [place] [address] Apr, Onychomycosis B35.1 ; DM chuck ro manif type II E11.49 and Hammertoe M20.40 [facility] [place] [address] [facility] [place] [id number] [address] [place] [address] Apr, Diabetes mellitus E11.9 and Hypertension I10 [place] [address] [place] [id number] [address] [place] [address] Mar, Hypertension I10 and Diabete s mellitus E11.9 [place] [address] [place] [id number] [address] [place] [address] Mar, Hypertension I10 and Diabete s mellitus E11.9 [place] [address] [place] [id number] [address] [place] [address] Jan, Onychomycosis B35.1 and DM n euro manif type II E11.49 [place] [address] [place] [id number] [place] [address] Dec, [place] [address] [place] [id number] [place] [address] Dec, [place] [address] [address] Dec, Hypertension I10 and Diabete s mellitus E11.9 [place] [address] [place] [id number] [place] [address] Oct, Encounter for immunization Z 23 ; Diabetes mellitus E11.9 ; Hypertension I10 and Cigarette nicotine dependence with nicotine-induced disorder F17.219 [place] [address] [place] [id number] [address] [place] [address] Oct, Diabetes mellitus E11.9 [place] [address] [place] [id number] [address] [place] [address] Oct, Onychomycosis B35.1 ; DM chuck ro manif type II E11.49 and Hammertoe M20.40 [place] [address] [place] [id number] [address] [place] [address] Jul, Diabetes mellitus E11.9 [place] [address] [place] [id number] [address] [place] [address] Jul, Onychomycosis B35.1 ; Hammer toe M20.40 and DM neuro manif type II E11.49 [facility] [place] [address] [id number] [address] [place] [address] May, Diabetes mellitus E11.9 [facility] [place] [address] [id number] [address] [place] [address] May, Diabetes mellitus E11.9 [place] [id number] [facility] [place] [facility] [id number] [address] [place] [address] Nov, Diabetes mellitus E11.9 ; Hy pertension I10 ; Reactive depression F32.9 and Encounter for immunization Z23 [place] [address] [id number] [address] [place] [address] Oct, Ulcer of other part of foot L97.509 [place] [address] [id number] [address] [place] [address] Sep, Onychomycosis B35.1 ; Ulcer of heel, left, with unspecified severity L97.429 and DM neuro manif type II E11.49 [place] [address] [id number] [address] [place] [address] Sep, [place] [address] [id number] [address] [place] [address] Sep, Ulcer of heel, left, with un specified severity L97.429 [place] [address] [id number] [address] [place] [address] Aug, Onychomycosis B35.1 ; Ulcer of heel, left, with unspecified severity L97.429 and DM neuro manif type II E11.49 [place] [address] [id number] [address] [place] [address] Jul, Diabetes mellitus E11.9 ; Hy pertension I10 ; Cigarette nicotine dependence with nicotine-induced disorder F17.219 and CAD (coronary artery disease) I25.10 [facility] [place] [address] [facility] [place] [facility] [id number] [address] [place] [address] Jul, Left leg claudication I73.9 ; Right leg claudication I73.9 ; CAD (coronary artery disease) I25.10 ; Hypertension I10 and Hyperlipidemia E78.5 [facility] [place] [address] [facility] [place] [facility] [id number] [address] [place] [address] Jul, Ulcer of heel, left, with un specified severity L97.429 and DM neuro manif type II E11.49 [facility] [place] [address] [id number] [address] [place] [address] June, Ulcer of heel, left, with un specified severity L97.429 and Ulcer of other part of foot L97.509 [place] [address] [facility] [place] [facility] [id number] [address] [place] [address] June, Ulcer of heel, left, with un specified severity L97.429 and Ulcer of foot, left, with unspecified severity L97.529 [place] [address] [facility] [place] [facility] [id number] [address] [place] [address] May, [place] [address] [id number] [address] [place] [address] May, [facility] [place] [address] [id number] [address] [place] [address] Apr, DM neuro manif type II E11.4 9 ; Hypertension I10 and Sleep apnea in adult G47.33 [facility] [place] [address] [facility] [place] [facility] [id number] [address] [place] [address] Apr, [place] [address] [id number] [address] [place] [address] Apr, Ulcer of foot L97.509 and DM neuro manif type II E11.49 [facility] [place] [address] [id number] [address] [place] [address] Apr, Ulcer of other part of foot L97.509 and DM neuro manif type II E11.49 [facility] [place] [address] [facility] [place] [id number] [address] [place] [address] Apr, Onychomycosis B35.1 ; Ingrow n toenail L60.0 ; Impaired circulation I99.9 and DM neuro manif type II E11.49 [place] [address] [place] [id number] [address] [place] [address] 08 Mar, 2015 Ulcer of other part of foot L97.509 ; Onychomycosis B35.1 and Diabetes mellitus E11.9 [place] [address] [place] [id number] [address] [place] [address] Dec, Encounter for immunization Z 23 ; Hypertension I10 and Diabetes mellitus E11.9 [place] [address] [place] [id number] [place] [address] Dec, [address] [address] Dec, CAD (coronary artery disease ) I25.10 ; Hypertension I10 ; Left leg claudication I73.9 and Hyperlipidemia E78.5 [place] [id number] [address] [place] [address] Nov, Onychomycosis B35.1 and Vin ertoe M20.40 [place] [address] [place] [id number] [address] [place] [address] Sep, Coronary atherosclerosis of unspecified type of vessel, [place] or graft 414.00 [place] [address] [place] [id number] [place] [address] Sep, Coronary atherosclerosis of unspecified type of vessel, [place] or graft 414.00 and Diabetes 250.00 [place] [address] [place] [id number] [address] [place] [address] May, [place] [address] [place] [id number] [address] [place] [address] May, [place] [address] [place] [id number] [address] [place] [address] Apr, [place] [address] [place] [id number] [address] [place] [address] Apr, [facility] [address] [id number] [address] [place] [address], [place] [address] Apr, [facility] [address] [id number] [address] [place] [address], [place] [address] Apr, [facility] [address] [id number] [address] [place] [address], [place] [address] Mar, [facility] [address] [id number] [address] [place] [address], [place] [address] Mar, [facility] [address] [id number] [address] [place] [address], [place] [address] Jan, [facility] [address] [id number] [address] [place] [address], [place] [address] Jan, [facility] [address] [id number] [address] [place] [address], [place] [address] Jan, [facility] [address] [id number] [address] [place] [address], [place] [address] Jan, [facility] [address] [id number] [address] [place] [address], [place] [address] Jan, [facility] [address] [id number] [address] [place] [address], [place] [address] Jan, [facility] [address] [id number] [address] [place] [address], [place] [address] Jan, [facility] [address] [id number] [address] [place] [address], [place] [address] Jan, [facility] [address] [id number] [address] [place] [address], [place] [address] Jan, [facility] [address] [id number] [address] [place] [address], [place] [address] Jan, [facility] [address] [id number] [address] [place] [address], [place] [address] Jan, [facility] [address] [id number] [address] [place] [address], [place] [address] Nov, [facility] [address] [id number] [address] [place] [address], [place] [address] Nov, [facility] [address] [id number] [address] [place] [address], [place] [address] Nov, [facility] [address] [id number] [address] [place] [address], [place] [address] Nov, [facility] [address] [id number] [address] [place] [address], [place] [address] 15 Nov, 2013 [facility] [address] [id number] [address] [place] [address], [place] [address] 15 Nov, 2013 [facility] [address] [id number] [address] [place] [address], [place] [address] 19 Oct, 2013 [facility] [address] [id number] [address] [place] [address], [place] [address] 19 Oct, 2013 [facility] [address] [id number] [address] [place] [address], [place] [address] 19 Oct, 2013 [facility] [address] [id number] [address] [place] [address], [place] [address] 19 Oct, 2013 [facility] [address] [id number] [address] [place] [address], [place] [address] 05 Oct, 2013 [facility] [address] [id number] [address] [place] [address], [place] [address] 05 Oct, 2013 [facility] [address] [id number] [address] [place] [address] Sep, [facility] [address] [id number] [address] [place] [address], [place] [address] Sep, [facility] [address] [id number] [address] [place] [address], [place] [address] Sep, [facility] [address] [id number] [address] [place] [address] Sep, [facility] [address] [id number] [address] [place] [address] Sep, [facility] [address] [id number] [address] [place] [address], [place] [address] Sep, [facility] [address] [id number] [address] [place] [address], [place] [address] Aug, [facility] [address] [id number] [address] [place] [address], [place] [address] Aug, [facility] [address] [id number] [address] [place] [address], [place] [address] Aug, [facility] [address] [id number] [address] [place] [address], [place] [address] Aug, [facility] [address] [id number] [address] [place] [address], [place] [address] Aug, [facility] [address] [id number] [address] [place] [address], [place] [address] Aug, [facility] [address] [id number] [address] [place] [address], [place] [address] Jul, [facility] [address] [id number] [address] [place] [address], [place] [address] Jul, [facility] [address] [id number] [address] [place] [address], [place] [address] Jul, [facility] [address] [id number] [address] [place] [address], [place] [address] Jul, [facility] [address] [id number] [address] [place] [address], [place] [address] June, [facility] [address] [id number] [address] [place] [address], [place] [address] June, [facility] [address] [id number] [address] [place] [address], [place] [address] June, [facility] [address] [id number] [address] [place] [address], [place] [address] June, [facility] [address] [id number] [facility] [address] May, [facility] [address] [id number] [address] [place] [address], [place] [address] May, [facility] [address] [id number] [address] [place] [address], [place] [address] May, [facility] [address] [id number] [address] [place] [address], [place] [address] May, [facility] [address] [id number] [address] [place] [address], [place] [address] May, [facility] [address] [id number] [address] [place] [address], [place] [address] May, [facility] [address] [id number] [address] [place] [address], [place] [address] Apr, [facility] [address] [id number] [address] [place] [address], [place] [address] Apr, [facility] [address] [id number] [address] [place] [address], [place] [address] Apr, [facility] [address] [id number] [address] [place] [address], [place] [address] Apr, [facility] [address] [id number] [address] [place] [address], [place] [address] Apr, [facility] [address] [id number] [address] [place] [address], [place] [address] Apr, [facility] [address] [id number] [address] [place] [address], [place] [address] Apr, [facility] [address] [id number] [address] [place] [address], [place] [address] Jan, [facility] [address] [id number] [address] [place] [address], [place] [address] Jan, [facility] [address] [id number] [address] [place] [address], [place] [address] Jan, [facility] [address] [id number] [address] [place] [address], [place] [address] Jan, [facility] [address] [id number] [address] [place] [address], [place] [address] Jan, [facility] [address] [id number] [address] [place] [address], [place] [address] Jan, [facility] [address] [id number] [address] [place] [id number] Dec, [facility] [address] [id number] [address] [place] [address], [place] [address] Dec, [facility] [address] [id number] [address] [place] [address], [place] [address] Dec, [facility] [address] [id number] [address] [place] [address], [place] [address] Dec, [facility] [address] [id number] [address] [place] [address], [place] [address] Dec, [facility] [address] [id number] [address] [place] [id number] Dec, [facility] [address] [id number] [address] [place] [id number] Nov, [facility] [address] [id number] [address] [place] [id number] Oct, [facility] [address] [id number] [address] [place] [id number] Oct, [facility] [address] [id number] [address] [place] [address], [place] [address] Aug, [facility] [address] [id number] [address] [place] [id number] Aug, [facility] [address] [id number] [address] [place] [address], [place] [address] Jul, [facility] [address] [id number] [address] [place] [address], [place] [address] June, [facility] [address] [id number] [address] [place] [address], [place] [address] Apr, [facility] [address] [id number] [address] [place] [address], [place] [address] Apr, [facility] [address] [id number] [address] [place] [address], [place] [address] Apr, [facility] [address] [address] [id number] [address] [place] [address], [place] [address] Apr, [facility] [address] [id number] [address] [place] [address], [place] [id number] Mar, [facility] [address] [id number] [address] [place] [address], [place] [address] Jan, [facility] [address] [id number] [address] [place] [address], [place] [address] 27 Jan, 2012 [facility] [address] [id number] [address] [place] [address], [place] [address] Jan, [facility] [address] [id number] [address] [place] [address], [place] [address] Jan, [facility] [address] [id number] [address] [place] [address], [place] [address] Jan, [facility] [address] [id number] [address] [place] [address], [place] [address] Jan, [facility] [address] [id number] [address] [place] [address], [place] [address] Jan, [facility] [address] [id number] [address] [place] [address], [place] [address] Jan, [facility] [address] [id number] [address] [place] [address], [place] [address] 16 Dec, 2011 [facility] [address] [id number] [address] [place] [address] [address] 16 Dec, 2011 [facility] [address] [id number] [address] [place] [address], [place] [address] 16 Dec, 2011 [facility] [address] [id number] [address] [place] [address], [place] [address] 16 Dec, 2011 [facility] [address] [id number] [address] [place] [address], [place] [address] 17 Nov, 2011 [facility] [address] [id number] [address] [place] [address], [place] [address] 24 Oct, 2011 [facility] [address] [id number] [address] [place] [address], [place] [address] 14 Aug, 2011 [facility] [address] [id number] [address] [place] [address], [place] [address] 14 Aug, 2011 [facility] [address] [id number] [address] [place] [address], [place] [address] 14 Aug, 2011 [facility] [address] [id number] [address] [place] [address], [place] [address] 13 Aug, 2011 [facility] [address] [id number] [address] [place] [address], [place] [address] 13 Aug, 2011 [facility] [address] [id number] [address] [place] [address], [place] [id number] 20 May, 2011 [facility] [address] [id number] [address] [place] [address], [place] [address] 16 Apr, 2011 [facility] [address] [id number] [address] [place] [address], [place] [address] 16 Apr, 2011 [facility] [address] [id number] [address] [place] [address], [place] [address] Mar, [facility] [address] [id number] [address] [place] [address], [place] [address] Mar, [facility] [address] [id number] [address] [place] [address], [place] [id number] 08 Dec, 2010 [facility] [address] [id number] [address] [place] [id number] Dec, [facility] [place] [address] [facility] [place] 2[place] [id number] [address] [place] [id number] Dec, IMMUNIZATIONS No Known Immunizations SOCIAL HISTORY [...]
--- OUTSIDE RECORDS SUMMARY | 2019-06-21 16:31 | XMS REPORT ---
Author Author Nick ABDI Organization [facility] Address [address] [place] [address] Care Team Providers Care Rn Emergency Room Name Role Phone ELVIN ABDI Unavailable PROBLEMS Type Condition ICD9-CM Code RSB10-RC Code Onset Dates Condition S tatus SNOMED Code Problem Hyperlipidemia E78.5 Active 31849 004 Problem Left leg claudication I73.9 Active 272574922 Problem DM neuro manif type II E11.49 Active 88212151 Problem Impaired circulation I99.9 Active 72785433 Problem Reactive depression F32.9 Active 50058564 Problem Cigarette nicotine dependence with nicotine-induced di sorder F17.219 Active 45692326 Problem 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 Active 28143 005 Problem Carotid artery disease I77.9 Active 058650529 Problem Hypercholesteremia E78.00 Active 2 57933595 Problem Onychomycosis B35.1 Active 613874 008 Problem Arthritis M19.90 Active 3081247 Problem Panlobular emphysema J43.1 Active 0727989 Problem Hammertoe M20.40 Active 255361444 Problem Type 2 diabetes mellitus E11.9 Activ e 09094776 Problem Essential (primary) hypertension I10 Active 01689967 Problem Tobacco abuse Z72.0 Active 730484 05 Problem PAD (peripheral artery disease) I73.9 Active 868419966 ALLERGIES No Information ENCOUNTERS Encounter Location Date Diagnosis [facility] [address] [place] [address] Jan, [facility] [address] [facility] [id number] [address] [place] [address] Jan, [facility] [address] [place] [address] Oct, Type 2 diabetes mellitus E11.9 and Essen tial (primary) hypertension I10 [facility] [address] [facility] [id number] [address] [place] [address] Oct, Onychomycosis B35.1 ; Diabet es mellitus E11.9 and Impaired circulation I99.[address] [address] Oct, Diabetes mellitus E11.9 and Hypertension I10 [address] [address] Oct, Hypertension I10 [address] [address] Sep, [facility] [address] [id number] [address] [place] [address] Sep, [address] [address] Aug, [facility] [address] [id number] [address] [place] [address] Aug, Panlobular emphysema J43.[address] [address] Aug, Panlobular emphysema J43.[address] [address] Aug, Panlobular emphysema J43.[address] [address] Jul, Encounter for screening for malignant ne oplasm of colon Z12.11 ; CAD (coronary artery disease) I25.10 ; Cigarette nicotine dependence with nicotine- induced disorder F17.219 ; Essential (primary) hypertension I10 ; Panlobular emphysema J43.1 and DM neuro manif type II E11.[address] [address] Jul, Type 2 diabetes mellitus E11.[address] [address] Jul, [facility] [address] [id number] [address] [place] [address] Jul, Onychomycosis B35.1 and DM n euro manif type II E11.49 [place] [id number] [facility] [id number] [address] [place] [address] June, Diabetes mellitus E11.[address] [address] May, [address] [address] Apr, Type 2 diabetes mellitus E11.9 ; [...] M20.40 ; Arthritis M19.90 and Hypoglycemia E16.2 [place] [address] [facility] [id number] [address] [place] [address] Apr, Diabetes mellitus E11.9 [place] [address] [facility] [id number] [address] [place] [address] Apr, Onychomycosis B35.1 ; Impair ed circulation I99.9 and DM neuro manif type II E11.49 [place] [address] [facility] [id number] [address] [place] [address] Jan, Diabetes mellitus E11.9 ; Hy pertension I10 and Encounter for immunization Z23 [place] [address] [facility] [id number] [address] [place] [address] Jan, Diabetes mellitus E11.9 [place] [address] [facility] [id number] [address] [place] [address] Jan, [place] [address] [facility] [id number] [address] [place] [address] Jan, [place] [address] [facility] [id number] [address] [place] [address] Oct, Onychomycosis B35.1 ; DM chuck ro manif type II E11.49 and Impaired circulation I99.9 [facility] [address] [facility] [id number] [address] [place] [address] Sep, [facility] [address] [facility] [id number] [address] [place] [address] Aug, Hypoglycemia E16.2 [facility] [address] [facility] [id number] [address] [place] [address] Aug, [facility] [address] [facility] [id number] [address] [place] [address] Jul, [facility] [address] [place] [id number] [address] [place] [address] Jul, Elevated blood sugar R73.9 a nd Neck pain M54.2 [place] [address] [place] [id number] [address] [place] [address] Jul, [facility] [address] [place] [id number] [address] [place] [address] Jul, Onychomycosis B35.1 and DM n euro manif type II E11.49 [facility] [address] [facility] [id number] [address] [place] [address] Jul, [place] [address] [place] [id number] [address] [place] [address] June, Hyperlipidemia E78.5 [facility] [address] [facility] [id number] [address] [place] [address] June, Diabetes mellitus E11.9 ; CA D (coronary artery disease) I25.10 ; Arthritis M19.90 and Hyperlipidemia E78.5 [facility] [address] [facility] [id number] [address] [place] [address] June, [facility] [address] [place] [id number] [address] [place] [address] Apr, Onychomycosis B35.1 ; DM chuck ro manif type II E11.49 and Hammertoe M20.40 [place] [address] [facility] [id number] [address] [place] [address] Apr, Diabetes mellitus E11.9 and Hypertension I10 [place] [address] [place] [id number] [address] [place] [address] Mar, Hypertension I10 and Diabete s mellitus E11.9 [place] [address] [facility] [id number] [address] [place] [address] Mar, Hypertension I10 and Diabete s mellitus E11.9 [place] [address] [place] [id number] [address] [place] [address] Jan, Onychomycosis B35.1 and DM n euro manif type II E11.49 [place] [address] [place] [id number] [address] [place] [address] Dec, [place] [address] [place] [id number] [address] [place] [address] Dec, [place] [address] [place] [id number] [address] [place] [address] Dec, Hypertension I10 and Diabete s mellitus E11.9 [place] [address] [place] [id number] [address] [place] [address] Oct, Encounter for immunization Z 23 ; Diabetes mellitus E11.9 ; Hypertension I10 and Cigarette nicotine dependence with nicotine-induced disorder F17.219 [place] [address] [place] [id number] [address] [place] [address] Oct, Diabetes mellitus E11.9 [place] [address] [place] [id number] [address] [place] [address] Oct, Onychomycosis B35.1 ; DM chuck ro manif type II E11.49 and Hammertoe M20.40 [place] [address] [place] [id number] [address] [place] [address] Jul, Diabetes mellitus E11.9 [place] [address] [facility] [id number] [address] [place] [address] Jul, Onychomycosis B35.1 ; Hammer toe M20.40 and DM neuro manif type II E11.49 [place] [address] [facility] [id number] [address] [place] [address] May, Diabetes mellitus E11.9 [place] [address] [place] [id number] [place] [address] May, Diabetes mellitus E11.9 [place] [address] [address] Nov, Diabetes mellitus E11.9 ; Hy pertension I10 ; Reactive depression F32.9 and Encounter for immunization Z23 [place] [address] [place] [id number] [place] [address] Oct, Ulcer of other part of foot L97.509 [place] [address] [address] Sep, Onychomycosis B35.1 ; Ulcer of heel, left, with unspecified severity L97.429 and DM neuro manif type II E11.49 [place] [id number] [place] [address] Sep, [place] [address] [place] [id number] [place] [address] Sep, Ulcer of heel, left, with un specified severity L97.429 [place] [address] [place] [id number] [address] [place] [address] Aug, Onychomycosis B35.1 ; Ulcer of heel, left, with unspecified severity L97.429 and DM neuro manif type II E11.49 [place] [address] [place] [id number] [address] [place] [address] Jul, Diabetes mellitus E11.9 ; Hy pertension I10 ; Cigarette nicotine dependence with nicotine-induced disorder F17.219 and CAD (coronary artery disease) I25.10 [facility] [address] [id number] [address] [place] [address] Jul, Left leg claudication I73.9 ; Right leg claudication I73.9 ; CAD (coronary artery disease) I25.10 ; Hypertension I10 and Hyperlipidemia E78.5 [facility] [address] [facility] [id number] [address] [place] [address] Jul, Ulcer of heel, left, with un specified severity L97.429 and DM neuro manif type II E11.49 [facility] [address] [id number] [address] [place] [address] June, Ulcer of heel, left, with un specified severity L97.429 and Ulcer of other part of foot L97.509 [place] [address] [facility] [id number] [address] [place] [address] June, Ulcer of heel, left, with un specified severity L97.429 and Ulcer of foot, left, with unspecified severity L97.529 [place] [address] [facility] [id number] [address] [place] [address] May, [facility] [address] [facility] [id number] [address] [place] [address] May, [facility] [address] [facility] [id number] [address] [place] [address] Apr, DM neuro manif type II E11.4 9 ; Hypertension I10 and Sleep apnea in adult G47.33 [facility] [address] [facility] [id number] [address] [place] [address] Apr, [facility] [address] [id number] [address] [place] [address] Apr, Ulcer of foot L97.509 and DM neuro manif type II E11.49 [facility] [address] [facility] [id number] [address] [place] [address] Apr, Ulcer of other part of foot L97.509 and DM neuro manif type II E11.49 [facility] [address] [address] 12 Apr, 2015 Onychomycosis B35.1 ; Ingrow n toenail L60.0 ; Impaired circulation I99.9 and DM neuro manif type II E11.[address] [address] 08 Mar, 2015 Ulcer of other part of foot L97.509 ; Onychomycosis B35.1 and Diabetes mellitus E11.[address] [address] 19 Dec, 2014 Encounter for immunization Z 23 ; Hypertension I10 and Diabetes mellitus E11.[address] [address] Dec, [address] [address] Dec, CAD (coronary artery disease ) I25.10 ; Hypertension I10 ; Left leg claudication I73.9 and Hyperlipidemia E78.[address] [address] Nov, Onychomycosis B35.1 and Vin ertoe M20.[address] [address] Sep, Coronary atherosclerosis of unspecified type of vessel, belkofski or graft 414.[address] [address] Sep, Coronary atherosclerosis of unspecified type of vessel, belkofski or graft 414.00 and Diabetes 250.[address] [address] May, [address] [address] May, [place] [address] [address] Apr, [facility] [address] [id number] [address] [place] [address], [place] [address] Apr, [facility] [address] [id number] [address] [place] [address], [place] [address] Apr, [facility] [address] [id number] [address] [place] [address], [place] [address] Apr, [facility] [address] [id number] [address] [place] [address], [place] [address] Mar, [facility] [address] [id number] [address] [place] [address], [place] [address] Mar, [facility] [address] [id number] [address] [place] [address], [place] [address] Jan, [facility] [address] [id number] [address] [place] [address], [place] [address] Jan, [facility] [address] [id number] [address] [place] [address], [place] [address] Jan, [facility] [address] [id number] [address] [place] [address], [place] [address] Jan, [facility] [address] [id number] [address] [place] [address], [place] [address] Jan, [facility] [address] [id number] [address] [place] [address], [place] [address] Jan, [facility] [address] [id number] [address] [place] [address], [place] [address] Jan, [facility] [address] [id number] [address] [place] [address], [place] [address] Jan, [facility] [address] [id number] [address] [place] [address], [place] [address] Jan, [facility] [address] [id number] [address] [place] [address], [place] [address] Jan, [facility] [address] [id number] [address] [place] [address] Jan, [facility] [address] [id number] [address] [place] [address], [place] [address] Nov, [facility] [address] [id number] [address] [place] [address], [place] [address] Nov, [facility] [address] [id number] [address] [place] [address], [place] [address] Nov, [facility] [address] [id number] [address] [place] [address], [place] [address] Nov, [facility] [address] [id number] [address] [place] [address], [place] [address] Nov, [facility] [address] [id number] [address] [place] [address], [place] [address] Nov, [facility] [address] [id number] [address] [place] [address], [place] [address] Oct, [facility] [address] [id number] [address] [place] [address], [place] [address] Oct, [facility] [address] [id number] [address] [place] [address], [place] [address] Oct, [facility] [address] [id number] [address] [place] [address], [place] [address] Oct, [facility] [address] [id number] [address] [place] [address], [place] [address] Oct, [facility] [address] [id number] [address] [place] [address], [place] [address] Oct, [facility] [address] [id number] [address] [place] [address], [place] [address] Sep, [facility] [address] [id number] [address] [place] [address], [place] [address] Sep, [facility] [address] [id number] [address] [place] [address], [place] [address] Sep, [facility] [address] [id number] [facility] [place] [address] Sep, [facility] [address] [id number] [facility] [place] [address] Sep, [facility] [address] [id number] [facility] [place] [address] Sep, [facility] [address] [id number] [address] [place] [address], [place] [address] Aug, [facility] [address] [id number] [address] [place] [address], [place] [address] Aug, [facility] [address] [id number] [address] [place] [address], [place] [address] Aug, [facility] [address] [id number] [address] [place] [address], [place] [address] Aug, [facility] [address] [id number] [address] [place] [address], [place] [address] Aug, [facility] [address] [id number] [address] [place] [address], [place] [address] Aug, [facility] [address] [id number] [address] [place] [address], [place] [address] Jul, [facility] [address] [id number] [address] [place] [address], [place] [address] Jul, [facility] [address] [id number] [address] [place] [address], [place] [address] Jul, [facility] [address] [id number] [address] [place] [address], [place] [address] Jul, [facility] [address] [id number] [address] [place] [address], [place] [address] June, [facility] [address] [id number] [address] [place] [address], [place] [address] June, [facility] [address] [id number] [address] [place] [address], [place] [address] June, [facility] [address] [id number] [address] [place] [address], [place] [address] June, [facility] [address] [id number] [address] [place] [address], [place] [address] May, [facility] [address] [id number] [address] [place] [address], [place] [address] May, [facility] [address] [id number] [address] [place] [address], [place] [address] May, [facility] [address] [id number] [address] [place] [address], [place] [address] May, [facility] [address] [id number] [address] [place] [address], [place] [address] May, [facility] [address] [id number] [address] [place] [address], [place] [address] May, [facility] [address] [id number] [address] [place] [address], [place] [address] Apr, [facility] [address] [id number] [address] [place] [address], [place] [address] Apr, [facility] [address] [id number] [address] [place] [address], [place] [address] Apr, [facility] [address] [id number] [address] [place] [address], [place] [address] Apr, [facility] [address] [id number] [address] [place] [address], [place] [address] Apr, [facility] [address] [id number] [address] [place] [address], [place] [address] Apr, [facility] [address] [id number] [address] [place] [address], [place] [address] Apr, [facility] [address] [id number] [address] [place] [address], [place] [address] Jan, [facility] [address] [id number] [address] [place] [address], [place] [address] Jan, [facility] [address] [id number] [address] [place] [address], [place] [address] Jan, [facility] [address] [id number] [address] [place] [address], [place] [address] Jan, [facility] [address] [id number] [address] [place] [address], [place] [address] Jan, [facility] [address] [id number] [address] [place] [address], [place] [address] Jan, [facility] [address] [id number] [address] [place] [address], [place] [address] Dec, [facility] [address] [id number] [address] [place] [address], [place] [address] Dec, [facility] [address] [id number] [address] [place] [address], [place] [address] Dec, [facility] [address] [id number] [address] [place] [address], [place] [address] Dec, [facility] [address] [id number] [address] [place] [address], [place] [address] Dec, [facility] [address] [id number] [address] [place] [address], [place] [id number] Dec, [facility] [address] [id number] [address] [place] [address], [place] [id number] Nov, [facility] [address] [id number] [address] [place] [address], [place] [id number] Oct, [facility] [address] [id number] [address] [place] [address], [place] [id number] Oct, [facility] [address] [id number] [address] [place] [address], [place] [address] Aug, [facility] [address] [id number] [address] [place] [address], [place] [id number] Aug, [facility] [address] [id number] [address] [place] [address], [place] [id number] Jul, [facility] [address] [id number] [address] [place] [address], [place] [address] June, [facility] [address] [id number] [address] [place] [address], [place] [id number] Apr, [facility] [address] [id number] [address] [place] [address], [place] [address] Apr, [facility] [address] [id number] [address] [place] [address], [place] [address] Apr, [facility] [address] [id number] [address] [place] [address], [place] [address] Apr, [facility] [address] [id number] [address] [place] [address], [place] [id number] Mar, [facility] [address] [id number] [address] [place] [address], [place] [id number] Jan, [facility] [address] [id number] [address] [place] [address], [place] [id number] Jan, [facility] [address] [id number] [address] [place] [address], [place] [id number] Jan, [facility] [address] [id number] [address] [place] [address], [place] [id number] Jan, [facility] [address] [id number] [address] [place] [address], [place] [id number] Jan, [facility] [address] [id number] [address] [place] [address], [place] [id number] Jan, [facility] [address] [id number] [address] [place] [address], [place] [id number] Jan, [facility] [address] [id number] [address] [place] [address], [place] [id number] Jan, [facility] [address] [id number] [address] [place] [address], [place] [id number] 16 Dec, 2011 [facility] [address] [id number] [address] [place] [address], [place] [id number] 16 Dec, 2011 [facility] [address] [id number] [address] [place] [address], [place] [id number] 16 Dec, 2011 [facility] [address] [id number] [address] [place] [address], [place] [id number] 16 Dec, 2011 [facility] [address] [id number] [address] [place] [address], [place] [id number] 17 Nov, 2011 [facility] [address] [id number] [address] [place] [address], [place] [id number] 24 Oct, 2011 [facility] [address] [id number] [address] [place] [address], [place] [id number] 14 Aug, 2011 [facility] [address] [id number] [address] [place] [address], [place] [id number] 14 Aug, 2011 [facility] [address] [id number] [address] [place] [address], [place] [id number] 14 Aug, 2011 [facility] [address] [id number] [address] [place] [address], [place] [id number] 13 Aug, 2011 [facility] [address] [id number] [address] [place] [address], [place] [id number] 13 Aug, 2011 [facility] [address] [id number] [address] [place] [address], [place] [id number] 20 May, 2011 [facility] [address] [id number] [address] [place] [address], [place] [id number] 16 Apr, 2011 [facility] [address] [id number] [address] [place] [address], [place] [id number] 16 Apr, 2011 [facility] [address] [id number] [address] [place] [address], [place] [id number] Mar, [facility] [address] [id number] [address] [place] [address], [place] [id number] Mar, [facility] [address] [facility] [id number] [address] [place] [id number] Dec, [facility] [address] [facility] [id number] [address] [place] [id number] Dec, [facility] [address] [facility] [id number] [address] [place] [id number] Dec, IMMUNIZATIONS No Known Immunizations SOCIAL HISTORY [...]
--- OUTSIDE RECORDS SUMMARY | 2019-06-21 16:31 | XMS REPORT ---
Author Author Nick Roberts Doctor Organization [facility] Address Unknown Phone Unavailable Care Team Providers Care Commission Clerk Name Role Phone Migration, Doctor Unavailable Unavailable PROBLEMS Type Condition ICD9-CM Code GPA95-VQ Code Onset Dates Condition S tatus SNOMED Code Problem Hyperlipidemia E78.5 Active 38200 004 Problem Left leg claudication I73.9 Active 042168522 Problem DM neuro manif type II E11.49 Active 11216663 Problem Impaired circulation I99.9 Active 19606424 Problem Reactive depression F32.9 Active 96832149 Problem Cigarette nicotine dependence with nicotine-induced di sorder F17.219 Active 32471418 Problem 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 Active 28819 005 Problem Carotid artery disease I77.9 Active 506299436 Problem Hypercholesteremia E78.00 Active 2 08612579 Problem Onychomycosis B35.1 Active 175024 008 Problem Arthritis M19.90 Active 0736016 Problem Panlobular emphysema J43.1 Active 5588604 Problem Hammertoe M20.40 Active 599380302 Problem Type 2 diabetes mellitus E11.9 Activ e 98241892 Problem Essential (primary) hypertension I10 Active 74037461 Problem Tobacco abuse Z72.0 Active 003022 05 Problem PAD (peripheral artery disease) I73.9 Active 409448882 ALLERGIES No Information ENCOUNTERS Encounter Location Date Diagnosis [facility] [address] [place] [address] Jan, [facility] [address] [facility] [id number] [address] [place] [address] Jan, [facility] [address] [place] [address] Oct, Type 2 diabetes mellitus E11.9 and Essen tial (primary) hypertension I10 [facility] [address] [facility] [id number] [address] [place] [address] Oct, Onychomycosis B35.1 ; Diabet es mellitus E11.9 and Impaired circulation I99.[address] [address] Oct, Diabetes mellitus E11.9 and Hypertension I10 [address] [address] Oct, Hypertension I10 [address] [address] Sep, [facility] [address] [facility] [id number] [address] [place] [address] Sep, [address] [address] Aug, [facility] [address] [facility] [id number] [address] [place] [address] Aug, Panlobular emphysema J43.[address] [address] Aug, Panlobular emphysema J43.[address] [address] Aug, Panlobular emphysema J43.[address] [address] Jul, Encounter for screening for malignant ne oplasm of colon Z12.11 ; CAD (coronary artery disease) I25.10 ; Cigarette nicotine dependence with nicotine- induced disorder F17.219 ; Essential (primary) hypertension I10 ; Panlobular emphysema J43.1 and DM neuro manif type II E11.[address] [address] Jul, Type 2 diabetes mellitus E11.[address] [address] Jul, [facility] [address] [id number] [address] [place] [address] Jul, Onychomycosis B35.1 and DM n euro manif type II E11.49 [facility] [address] [facility] [id number] [address] [place] [address] June, Diabetes mellitus E11.[address] [address] May, [address] [address] Apr, Type 2 diabetes mellitus E11.9 ; [...] M20.40 ; Arthritis M19.90 and Hypoglycemia E16.2 [place] [address] [facility] [id number] [address] [place] [address] Apr, Diabetes mellitus E11.9 [place] [address] [facility] [id number] [address] [place] [address] Apr, Onychomycosis B35.1 ; Impair ed circulation I99.9 and DM neuro manif type II E11.49 [place] [address] [facility] [id number] [address] [place] [address] Jan, Diabetes mellitus E11.9 ; Hy pertension I10 and Encounter for immunization Z23 [place] [address] [facility] [id number] [address] [place] [address] Jan, Diabetes mellitus E11.9 [place] [address] [facility] [id number] [address] [place] [address] Jan, [place] [address] [facility] [id number] [address] [place] [address] Jan, [place] [address] [facility] [id number] [address] [place] [address] Oct, Onychomycosis B35.1 ; DM chuck ro manif type II E11.49 and Impaired circulation I99.9 [facility] [address] [facility] [id number] [address] [place] [address] Sep, [facility] [address] [facility] [id number] [address] [place] [address] Aug, Hypoglycemia E16.2 [facility] [address] [facility] [id number] [address] [place] [address] Aug, [facility] [address] [facility] [id number] [address] [place] [address] Jul, [facility] [address] [facility] [id number] [address] [place] [address] Jul, Elevated blood sugar R73.9 a nd Neck pain M54.2 [place] [address] [place] [id number] [address] [place] [address] Jul, [facility] [address] [facility] [id number] [address] [place] [address] Jul, Onychomycosis B35.1 and DM n euro manif type II E11.49 [facility] [address] [facility] [id number] [address] [place] [address] Jul, [facility] [address] [facility] [id number] [address] [place] [address] June, Hyperlipidemia E78.5 [facility] [address] [facility] [id number] [address] [place] [address] June, Diabetes mellitus E11.9 ; CA D (coronary artery disease) I25.10 ; Arthritis M19.90 and Hyperlipidemia E78.5 [facility] [address] [facility] [id number] [address] [place] [address] June, [facility] [address] [facility] [id number] [address] [place] [address] Apr, Onychomycosis B35.1 ; DM chuck ro manif type II E11.49 and Hammertoe M20.40 [place] [address] [place] [id number] [address] [place] [address] Apr, Diabetes mellitus E11.9 and Hypertension I10 [place] [address] [place] [id number] [address] [place] [address] Mar, Hypertension I10 and Diabete s mellitus E11.9 [place] [address] [place] [id number] [address] [place] [address] Mar, Hypertension I10 and Diabete s mellitus E11.9 [place] [address] [place] [id number] [address] [place] [address] Jan, Onychomycosis B35.1 and DM n euro manif type II E11.49 [place] [address] [place] [id number] [address] [place] [address] Dec, [place] [address] [address] Dec, [place] [address] [address] Dec, Hypertension I10 and Diabete s mellitus E11.9 [place] [address] [address] Oct, Encounter for immunization Z 23 ; Diabetes mellitus E11.9 ; Hypertension I10 and Cigarette nicotine dependence with nicotine-induced disorder F17.219 [place] [address] [place] [id number] [address] [place] [address] Oct, Diabetes mellitus E11.9 [place] [address] [place] [id number] [address] [place] [address] Oct, Onychomycosis B35.1 ; DM chuck ro manif type II E11.49 and Hammertoe M20.40 [place] [address] [place] [id number] [address] [place] [address] Jul, Diabetes mellitus E11.9 [place] [address] [place] [id number] [address] [place] [address] Jul, Onychomycosis B35.1 ; Hammer toe M20.40 and DM neuro manif type II E11.49 [place] [address] [place] [id number] [address] [place] [address] May, Diabetes mellitus E11.9 [place] [address] [place] [id number] [address] [place] [address] May, Diabetes mellitus E11.9 [place] [address] [place] [id number] [place] [address] Nov, Diabetes mellitus E11.9 ; Hy pertension I10 ; Reactive depression F32.9 and Encounter for immunization Z23 [place] [address] [place] [id number] [place] [address] Oct, Ulcer of other part of foot L97.[address] [address] Sep, Onychomycosis B35.1 ; Ulcer of heel, left, with unspecified severity L97.429 and DM neuro manif type II E11.49 [place] [address] [place] [address] Sep, [place] [address] [address] Sep, Ulcer of heel, left, with un specified severity L97.429 [place] [address] [place] [id number] [address] [place] [address] Aug, Onychomycosis B35.1 ; Ulcer of heel, left, with unspecified severity L97.429 and DM neuro manif type II E11.49 [place] [address] [place] [id number] [address] [place] [address] Jul, Diabetes mellitus E11.9 ; Hy pertension I10 ; Cigarette nicotine dependence with nicotine-induced disorder F17.219 and CAD (coronary artery disease) I25.10 [place] [id number] [address] [place] [address] Jul, Left leg claudication I73.9 ; Right leg claudication I73.9 ; CAD (coronary artery disease) I25.10 ; Hypertension I10 and Hyperlipidemia E78.5 [place] [address] [facility] [id number] [address] [place] [address] Jul, Ulcer of heel, left, with un specified severity L97.429 and DM neuro manif type II E11.49 [place] [address] [facility] [id number] [address] [place] [address] June, Ulcer of heel, left, with un specified severity L97.429 and Ulcer of other part of foot L97.509 [place] [address] [facility] [id number] [address] [place] [address] June, Ulcer of heel, left, with un specified severity L97.429 and Ulcer of foot, left, with unspecified severity L97.529 [place] [address] [facility] [id number] [address] [place] [address] May, [place] [address] [facility] [id number] [address] [place] [address] May, [place] [address] [facility] [id number] [address] [place] [address] Apr, DM neuro manif type II E11.4 9 ; Hypertension I10 and Sleep apnea in adult G47.33 [place] [address] [facility] [id number] [address] [place] [address] Apr, [place] [address] [facility] [id number] [address] [place] [address] Apr, Ulcer of foot L97.509 and DM neuro manif type II E11.49 [place] [address] [facility] [id number] [address] [place] [address] Apr, Ulcer of other part of foot L97.509 and DM neuro manif type II E11.49 [place] [address] [facility] [id number] [address] [place] [address] Apr, Onychomycosis B35.1 ; Ingrow n toenail L60.0 ; Impaired circulation I99.9 and DM neuro manif type II E11.[address] [address] 08 Mar, 2015 Ulcer of other part of foot L97.509 ; Onychomycosis B35.1 and Diabetes mellitus E11.[address] [address] 19 Dec, 2014 Encounter for immunization Z 23 ; Hypertension I10 and Diabetes mellitus E11.[address] [address] Dec, [address] [address] Dec, CAD (coronary artery disease ) I25.10 ; Hypertension I10 ; Left leg claudication I73.9 and Hyperlipidemia E78.[address] [address] Nov, Onychomycosis B35.1 and Vin ertoe M20.[address] [address] Sep, Coronary atherosclerosis of unspecified type of vessel, barrow or graft 414.[address] [address] Sep, Coronary atherosclerosis of unspecified type of vessel, barrow or graft 414.00 and Diabetes 250.00 [place] [address] [address] May, [address] [address] May, [place] [address] [address] Apr, [address] [address] Apr, [facility] [address] [id number] [address] [place] [address], [place] [address] Apr, [facility] [address] [id number] [address] [place] [address], [place] [address] Apr, [facility] [address] [id number] [address] [place] [address], [place] [address] Mar, [facility] [address] [id number] [address] [place] [address], [place] [address] Mar, [facility] [address] [id number] [address] [place] [address], [place] [address] Jan, [facility] [address] [id number] [address] [place] [address], [place] [address] Jan, [facility] [address] [id number] [address] [place] [address], [place] [address] Jan, [facility] [address] [id number] [address] [place] [address], [place] [address] Jan, [facility] [address] [id number] [address] [place] [address], [place] [address] Jan, [facility] [address] [id number] [address] [place] [address], [place] [address] Jan, [facility] [address] [id number] [address] [place] [address], [place] [address] Jan, [facility] [address] [id number] [address] [place] [address], [place] [address] Jan, [facility] [address] [id number] [address] [place] [address], [place] [address] Jan, [facility] [address] [id number] [address] [place] [address], [place] [address] Jan, [facility] [address] [id number] [address] [place] [address], [place] [address] Jan, [facility] [address] [id number] [address] [place] [address], [place] [address] Nov, [facility] [address] [id number] [address] [place] [address], [place] [address] Nov, [facility] [address] [id number] [address] [place] [address], [place] [address] Nov, [facility] [address] [id number] [address] [place] [address], [place] [address] Nov, [facility] [address] [id number] [address] [place] [address], [place] [address] 15 Nov, 2013 [facility] [address] [id number] [address] [place] [address], [place] [address] 15 Nov, 2013 [facility] [address] [id number] [address] [place] [address], [place] [address] 19 Oct, 2013 [facility] [address] [id number] [address] [place] [address], [place] [address] 19 Oct, 2013 [facility] [address] [id number] [address] [place] [address], [place] [address] 19 Oct, 2013 [facility] [address] [id number] [address] [place] [address], [place] [address] 19 Oct, 2013 [facility] [address] [id number] [address] [place] [address], [place] [address] 05 Oct, 2013 [facility] [address] [id number] [address] [place] [address], [place] [address] 05 Oct, 2013 [facility] [address] [id number] [address] [place] [address], [place] [address] 20 Sep, 2013 [facility] [address] [id number] [address] [place] [address], [place] [address] Sep, [facility] [address] [id number] [address] [place] [address], [place] [address] 15 Sep, 2013 [facility] [address] [id number] [address] [place] [address], [place] [address] Sep, [facility] [address] [id number] [address] [place] [address], [place] [address] Sep, [facility] [address] [id number] [address] [place] [address], [place] [address] Sep, [facility] [address] [id number] [address] [place] [address], [place] [address] Aug, [facility] [address] [id number] [address] [place] [address], [place] [address] Aug, [facility] [address] [id number] [address] [place] [address], [place] [address] Aug, [facility] [address] [id number] [address] [place] [address], [place] [address] Aug, [facility] [address] [id number] [address] [place] [address], [place] [address] Aug, [facility] [address] [id number] [address] [place] [address], [place] [address] Aug, [facility] [address] [id number] [address] [place] [address], [place] [address] Jul, [facility] [address] [id number] [address] [place] [address], [place] [address] Jul, [facility] [address] [id number] [address] [place] [address], [place] [address] Jul, [facility] [address] [id number] [address] [place] [address], [place] [address] Jul, [facility] [address] [id number] [address] [place] [address], [place] [address] June, [facility] [address] [id number] [address] [place] [address], [place] [address] June, [facility] [address] [id number] [address] [place] [address], [place] [address] June, [facility] [address] [id number] [address] [place] [address] June, [facility] [address] [id number] [address] [place] [address], [place] [address] May, [facility] [address] [id number] [address] [place] [address], [place] [address] May, [facility] [address] [id number] [address] [place] [address], [place] [address] May, [facility] [address] [id number] [address] [place] [address], [place] [address] May, [facility] [address] [id number] [address] [place] [address], [place] [address] May, [facility] [address] [id number] [address] [place] [address], [place] [address] May, [facility] [address] [id number] [address] [place] [address], [place] [address] Apr, [facility] [address] [id number] [address] [place] [address], [place] [address] Apr, [facility] [address] [id number] [address] [place] [address], [place] [address] Apr, [facility] [address] [id number] [address] [place] [address], [place] [address] Apr, [facility] [address] [id number] [address] [place] [address], [place] [address] Apr, [facility] [address] [id number] [address] [place] [address], [place] [address] Apr, [facility] [address] [id number] [address] [place] [address], [place] [address] Apr, [facility] [address] [id number] [address] [place] [address], [place] [address] Jan, [facility] [address] [id number] [address] [place] [address], [place] [address] Jan, [facility] [address] [id number] [address] [place] [address], [place] [address] Jan, [facility] [address] [id number] [address] [place] [address], [place] [address] Jan, [facility] [address] [id number] [address] [place] [address], [place] [address] Jan, [facility] [address] [id number] [address] [place] [address], [place] [address] Jan, [facility] [address] [id number] [address] [place] [address], [place] [address] Dec, [facility] [address] [id number] [address] [place] [id number], [place] [address] Dec, [facility] [address] [id number] [address] [place] [id number], [place] [address] Dec, [facility] [address] [id number] [address] [place] [id number], [place] [address] Dec, [facility] [address] [id number] [address] [place] [id number], [place] [address] Dec, [facility] [address] [id number] [address] [place] [id number], [place] [address] Dec, [facility] [address] [id number] [address] [place] [id number], [place] [address] Nov, [facility] [address] [id number] [address] [place] [id number], [place] [address] Oct, [facility] [address] [id number] [address] [place] [id number], [place] [address] Oct, [facility] [address] [id number] [address] [place] [id number], [place] [address] Aug, [facility] [address] [id number] [address] [place] [id number], [place] [address] Aug, [facility] [address] [id number] [address] [place] [id number], [place] [address] Jul, [facility] [address] [id number] [address] [place] [id number], [place] [id number] June, [facility] [address] [id number] [address] [place] [id number], [place] [address] Apr, [facility] [address] [id number] [address] [place] [id number], [place] [address] Apr, [facility] [address] [id number] [address] [place] [id number], [place] [address] Apr, [facility] [address] [id number] [address] [place] [id number], [place] [address] Apr, [facility] [address] [id number] [address] [place] [id number], [place] [id number] Mar, [facility] [address] [id number] [address] [place] [id number], [place] [address] Jan, [facility] [address] [id number] [address] [place] [id number], [place] [id number] Jan, [facility] [address] [id number] [address] [place] [id number], [place] [id number] Jan, [facility] [address] [id number] [address] [place] [id number], [place] [address] Jan, [facility] [address] [id number] [address] [place] [id number], [place] [address] Jan, [facility] [address] [id number] [address] [place] [id number], [place] [address] Jan, [facility] [address] [id number] [address] [place] [id number], [place] [address] Jan, [facility] [address] [id number] [address] [place] [id number], [place] [id number] Jan, [facility] [address] [id number] [address] [place] [id number], [place] [id number] 16 Dec, 2011 [facility] [address] [id number] [address] [place] [id number], [place] [address] 16 Dec, 2011 [facility] [address] [id number] [address] [place] [id number], [place] [id number] 16 Dec, 2011 [facility] [address] [id number] [address] [place] [id number], [place] [id number] 16 Dec, 2011 [facility] [address] [id number] [address] [place] [id number], [place] [id number] 17 Nov, 2011 [facility] [address] [id number] [address] [place] [id number], [place] [id number] 24 Oct, 2011 [facility] [address] [id number] [address] [place] [id number], [place] [id number] 14 Aug, 2011 [facility] [address] [id number] [address] [place] [id number], [place] [id number] 14 Aug, 2011 [facility] [address] [id number] [address] [place] [id number], [place] [id number] 14 Aug, 2011 [facility] [address] [id number] [address] [place] [id number], [place] [id number] 13 Aug, 2011 [facility] [address] [id number] [address] [place] [id number], [place] [id number] 13 Aug, 2011 [facility] [address] [id number] [address] [place] [id number], [place] [id number] 20 May, 2011 [facility] [address] [id number] [address] [place] [id number], [place] [id number] 16 Apr, 2011 [facility] [address] [id number] [address] [place] [id number], [place] [id number] 16 Apr, 2011 [facility] [address] [id number] [address] [place] [id number], [place] [id number] Mar, [facility] [address] [id number] [address] [place] [id number], [place] [id number] Mar, [facility] [address] [id number] [address] [place] [id number] [address] Dec, [facility] [address] [facility] [id number] [place] [address] Dec, [facility] [address] [facility] [id number] [address] [place] [id number] Dec, IMMUNIZATIONS No Known Immunizations SOCIAL HISTORY Never Assessed REASON FOR VISIT PLAN OF CARE VITAL SIGNS Height 75 in 2013-12-14 Weight 227.99 lbs 2013-12-14 Heart Rate 58 bpm 2013-12-14 Blood pressure systolic 128 mmHg 2013-12-14 Blood pressure diastolic 78 mmHg 2013-12-14 MEDICATIONS Unknown Medications RESULTS No Results PROCEDURES Procedure Date Ordered Result Body Site MEASURE BLOOD OXYGEN LEVEL Dec 14, 2013 INSTRUCTIONS MEDICATIONS ADMINISTERED No Known Medications [...]
--- OUTSIDE RECORDS SUMMARY | 2019-06-21 16:32 | XMS REPORT ---
Author Author Nick COOPER [facility] Address [address] [place] [address] Care Team Providers Care Head Waitress Name Role Phone ANISH COOPER Unavailable PROBLEMS Type Condition ICD9-CM Code [id number] Code Onset Dates Condition S tatus SNOMED Code Problem CAD (coronary artery disease) I25.10 Active 32913997 Problem Hypertension I10 Active 8042989 3 Problem Diabetes mellitus E11.9 Active 73 832739 Problem Hyperlipidemia E78.5 Active 97583 004 Problem Impaired circulation I99.9 Active 66033002 Problem DM neuro manif type II E11.49 Active 10016943 Problem Reactive depression F32.9 Active 09586909 Problem Cigarette nicotine dependence with nicotine-induced di sorder F17.219 Active 16244063 Problem Hypoglycemia E16.2 Active 6170247 03 Problem 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 Active 74709 005 Problem Carotid artery disease I77.9 Active 001959933 Problem Tobacco abuse Z72.0 Active 548264 05 Problem Arthritis M19.90 Active 3626705 Problem Panlobular emphysema J43.1 Active 4988663 Problem Hammertoe M20.40 Active 032061692 Problem Left leg claudication I73.9 Active 884708140 Problem Hypercholesteremia E78.00 Active 2 94461283 Problem Type 2 diabetes mellitus E11.9 Activ e 49425221 Problem PAD (peripheral artery disease) I73.9 Active 228536578 Problem Essential (primary) hypertension I10 Active 88956430 ALLERGIES Substance Reaction Event Type Date Status Spiders Unknown Non Drug Allergy Apr, Active Artificial sweetner migraines, diarrhea Non Drug Allergy Apr, 19 Active Bee Stings anaphylaxis Non Drug Allergy Apr, Active Penicillin V Potassium Unknown Drug Allergy Apr, Activ e ENCOUNTERS Encounter Location Date Diagnosis [facility] [address] [place] [address] Oct, [facility], [place] [address] [facility] [id number] [address] [place] [address] Oct, [facility] [place] [address] [facility] [id number] [address] [place] [address] Sep, [address] [address] Aug, [facility], [place] [address] [facility] [id number] [address] [place] [address] Aug, Panlobular emphysema J43.[address] [address] Aug, Panlobular emphysema J43.[address] [address] Aug, Panlobular emphysema J43.[address] [address] Jul, Encounter for screening for malignant ne oplasm of colon Z12.11 ; CAD (coronary artery disease) I25.10 ; Cigarette nicotine dependence with nicotine- induced disorder F17.219 ; Essential (primary) hypertension I10 ; Panlobular emphysema J43.1 and DM neuro manif type II E11.[address] [address] Jul, Type 2 diabetes mellitus E11.[address] [address] Jul, [facility], [place] [address] [facility] [id number] [address] [place] [address] Jul, Onychomycosis B35.1 and DM n euro manif type II E11.49 [facility], [place] [address] [facility] [id number] [address] [place] [address] June, Diabetes mellitus E11.[address] [address] May, [address] [address] Apr, Type 2 diabetes mellitus E11.9 ; [...] M20.40 ; Arthritis M19.90 and Hypoglycemia E16.2 [place] [address] [address] Apr, Diabetes mellitus E11.9 [place] [address] [place] [id number] [place] [address] Apr, Onychomycosis B35.1 ; Impair ed circulation I99.9 and DM neuro manif type II E11.49 [place] [address] [place] [address] Jan, Diabetes mellitus E11.9 ; Hy pertension I10 and Encounter for immunization Z23 [address] [address] Jan, Diabetes mellitus E11.9 [place] [address] [place] [id number] [address] [place] [address] Jan, [place] [address] [place] [id number] [address] [place] [address] Jan, [place] [address] [place] [id number] [address] [place] [address] Oct, Onychomycosis B35.1 ; DM chuck ro manif type II E11.49 and Impaired circulation I99.9 [facility], [place] [address] [facility] [id number] [address] [place] [address] Sep, [place] [address] [place] [id number] [address] [place] [address] Aug, Hypoglycemia E16.2 [place] [address] [place] [id number] [address] [place] [address] Aug, [place] [address] [address] Jul, [place] [address] [address] Jul, Elevated blood sugar R73.9 a nd Neck pain M54.2 [place] [address] [address] Jul, [place] [address] [address] Jul, Onychomycosis B35.1 and DM n euro manif type II E11.49 [place] [address] [address] Jul, [place] [address] [address] June, Hyperlipidemia E78.5 [place] [address] [address] June, Diabetes mellitus E11.9 ; CA D (coronary artery disease) I25.10 ; Arthritis M19.90 and Hyperlipidemia E78.5 [place] [address] [address] June, [place] [address] [address] Apr, Onychomycosis B35.1 ; DM chuck ro manif type II E11.49 and Hammertoe M20.40 [place] [address] [place] [id number] [address] [place] [address] Apr, Diabetes mellitus E11.9 and Hypertension I10 [place] [address] [place] [id number] [address] [place] [address] Mar, Hypertension I10 and Diabete s mellitus E11.9 [facility], [place] [address] [facility] [id number] [address] [place] [address] Mar, Hypertension I10 and Diabete s mellitus E11.9 [facility], [place] [address] [facility] [id number] [address] [place] [address] Jan, Onychomycosis B35.1 and DM n euro manif type II E11.49 [facility], [place] [address] [facility] [id number] [address] [place] [address] Dec, [facility], [place] [address] [facility] [id number] [address] [place] [address] Dec, [place] [address] [facility] [id number] [address] [place] [address] Dec, Hypertension I10 and Diabete s mellitus E11.9 [place] [address] [place] [id number] [place] [address] Oct, Encounter for immunization Z 23 ; Diabetes mellitus E11.9 ; Hypertension I10 and Cigarette nicotine dependence with nicotine-induced disorder F17.219 [place] [address] [place] [id number] [address] [place] [address] Oct, Diabetes mellitus E11.9 [place] [address] [place] [id number] [address] [place] [address] Oct, Onychomycosis B35.1 ; DM chuck ro manif type II E11.49 and Hammertoe M20.40 [facility], [place] [address] [facility] [id number] [address] [place] [address] Jul, Diabetes mellitus E11.9 [place] [address] [facility] [id number] [address] [place] [address] Jul, Onychomycosis B35.1 ; Hammer toe M20.40 and DM neuro manif type II E11.49 [facility], [place] [address] [place] [id number] [address] [place] [address] May, Diabetes mellitus E11.9 [place] [address] [place] [address] May, Diabetes mellitus E11.9 [place] [address] [address] Nov, Diabetes mellitus E11.9 ; Hy pertension I10 ; Reactive depression F32.9 and Encounter for immunization Z23 [place] [address] [place] [id number] [address] [place] [address] Oct, Ulcer of other part of foot L97.509 [place] [address] [place] [id number] [place] [address] Sep, Onychomycosis B35.1 ; Ulcer of heel, left, with unspecified severity L97.429 and DM neuro manif type II E11.49 [place] [address] [address] Sep, [place] [address] [address] Sep, Ulcer of heel, left, with un specified severity L97.429 [place] [address] [address] Aug, Onychomycosis B35.1 ; Ulcer of heel, left, with unspecified severity L97.429 and DM neuro manif type II E11.49 [place] [address] [place] [address] Jul, Diabetes mellitus E11.9 ; Hy pertension I10 ; Cigarette nicotine dependence with nicotine-induced disorder F17.219 and CAD (coronary artery disease) I25.10 [place] [address] [address] Jul, Left leg claudication I73.9 ; Right leg claudication I73.9 ; CAD (coronary artery disease) I25.10 ; Hypertension I10 and Hyperlipidemia E78.5 [place] [address] [address] Jul, Ulcer of heel, left, with un specified severity L97.429 and DM neuro manif type II E11.49 [facility], [place] [address] [id number] [address] [place] [address] June, Ulcer of heel, left, with un specified severity L97.429 and Ulcer of other part of foot L97.509 [facility], [place] [address] [id number] [address] [place] [address] June, Ulcer of heel, left, with un specified severity L97.429 and Ulcer of foot, left, with unspecified severity L97.529 [facility], [place] [address] [id number] [address] [place] [address] May, [facility], [place] [address] [id number] [address] [place] [address] May, [facility], [place] [address] [id number] [address] [place] [address] Apr, DM neuro manif type II E11.4 9 ; Hypertension I10 and Sleep apnea in adult G47.33 [facility], [place] [address] [id number] [address] [place] [id number] Apr, [facility], [place] [address] [id number] [address] [place] [address] Apr, Ulcer of foot L97.509 and DM neuro manif type II E11.49 [facility], [place] [address] [id number] [address] [place] [address] Apr, Ulcer of other part of foot L97.509 and DM neuro manif type II E11.49 [facility], [place] [address] [id number] [address] [place] [address] Apr, Onychomycosis B35.1 ; Ingrow n toenail L60.0 ; Impaired circulation I99.9 and DM neuro manif type II E11.49 [facility], [place] [address] [id number] [address] [place] [address] Mar, Ulcer of other part of foot L97.509 ; Onychomycosis B35.1 and Diabetes mellitus E11.9 [facility], [place] [address] [facility] [id number] [address] [place] [address] Dec, Encounter for immunization Z 23 ; Hypertension I10 and Diabetes mellitus E11.9 [place] [address] [place] [id number] [address] [place] [address] Dec, [place] [address] [address] Dec, CAD (coronary artery disease ) I25.10 ; Hypertension I10 ; Left leg claudication I73.9 and Hyperlipidemia E78.5 [place] [address] [address] Nov, Onychomycosis B35.1 and Vin ertoe M20.40 [place] [address] [address] Sep, Coronary atherosclerosis of unspecified type of vessel, morongo or graft 414.00 [place] [address] [place] [id number] [place] [address] Sep, Coronary atherosclerosis of unspecified type of vessel, morongo or graft 414.00 and Diabetes 250.00 [place] [address] [place] [id number] [address] [place] [address] May, [place] [address] [place] [id number] [address] [place] [phone] May, [facility], [place] [address] [place] [id number] [address] [place] [address] Apr, [facility] [place] [address] [place] [id number] [address] [place] [address] Apr, [place] [address] [place] [id number] [address] [place] [phone] Apr, [facility], [place] [address] [place] [id number] [address] [place] [address] Apr, [facility] [address] [id number] [address] [place] [address], [place] [address] Mar, [facility] [address] [id number] [address] [place] [address], [place] [address] Mar, [facility] [address] [id number] [address] [place] [address], [place] [address] Jan, [facility] [address] [id number] [address] [place] [address], [place] [address] Jan, [facility] [address] [id number] [address] [place] [address], [place] [address] Jan, [facility] [address] [id number] [address] [place] [address], [place] [address] Jan, [facility] [address] [id number] [address] [place] [address], [place] [address] Jan, [facility] [address] [id number] [address] [place] [address], [place] [address] Jan, [facility] [address] [id number] [address] [place] [address], [place] [address] Jan, [facility] [address] [id number] [address] [place] [address], [place] [address] Jan, [facility] [address] [id number] [address] [place] [address], [place] [address] Jan, [facility] [address] [id number] [address] [place] [address], [place] [address] Jan, [facility] [address] [id number] [address] [place] [address], [place] [address] Jan, [facility] [address] [id number] [address] [place] [address], [place] [address] Nov, [facility] [address] [id number] [address] [place] [address], [place] [address] Nov, [facility] [address] [id number] [address] [place] [address], [place] [address] Nov, [facility] [address] [id number] [address] [place] [address], [place] [address] Nov, [facility] [address] [id number] [address] [place] [address], [place] [address] 15 Nov, 2013 [facility] [address] [id number] [address] [place] [address], [place] [address] 15 Nov, 2013 [facility] [address] [id number] [address] [place] [address], [place] [address] 19 Oct, 2013 [facility] [address] [id number] [address] [place] [address], [place] [address] 19 Oct, 2013 [facility] [address] [id number] [address] [place] [address], [place] [address] 19 Oct, 2013 [facility] [address] [id number] [address] [place] [address], [place] [address] 19 Oct, 2013 [facility] [address] [id number] [address] [place] [address], [place] [address] 05 Oct, 2013 [facility] [address] [id number] [address] [place] [address], [place] [address] 05 Oct, 2013 [facility] [address] [id number] [address] [place] [address], [place] [address] Sep, [facility] [address] [id number] [address] [place] [address], [place] [address] Sep, [facility] [address] [id number] [address] [place] [address], [place] [address] Sep, [facility] [address] [id number] [address] [place] [address], [place] [address] Sep, [facility] [address] [id number] [address] [place] [address], [place] [address] Sep, [facility] [address] [id number] [address] [place] [address], [place] [address] Sep, [facility] [address] [id number] [facility] [place] [address] Aug, [facility] [address] [id number] [address] [place] [address], [place] [address] Aug, [facility] [address] [id number] [address] [place] [address], [place] [address] Aug, [facility] [address] [id number] [address] [place] [address], [place] [address] Aug, [facility] [address] [id number] [address] [place] [address], [place] [address] Aug, [facility] [address] [id number] [address] [place] [address], [place] [address] Aug, [facility] [address] [id number] [address] [place] [address], [place] [address] Jul, [facility] [address] [id number] [address] [place] [address], [place] [address] Jul, [facility] [address] [id number] [address] [place] [address], [place] [address] Jul, [facility] [address] [id number] [address] [place] [address], [place] [address] Jul, [facility] [address] [id number] [address] [place] [address], [place] [address] June, [facility] [address] [id number] [address] [place] [address], [place] [address] June, [facility] [address] [id number] [address] [place] [address], [place] [address] June, [facility] [address] [id number] [address] [place] [address], [place] [address] June, [facility] [address] [id number] [address] [place] [address], [place] [address] May, [facility] [address] [id number] [address] [place] [address], [place] [address] May, [facility] [address] [id number] [address] [place] [address], [place] [address] May, [facility] [address] [id number] [address] [place] [address], [place] [address] May, [facility] [address] [id number] [address] [place] [address], [place] [address] May, [facility] [address] [id number] [address] [place] [address], [place] [address] May, [facility] [address] [id number] [address] [place] [address], [place] [address] Apr, [facility] [address] [id number] [address] [place] [address], [place] [address] Apr, [facility] [address] [id number] [address] [place] [address], [place] [address] Apr, [facility] [address] [id number] [address] [place] [address], [place] [address] Apr, [facility] [address] [id number] [address] [place] [address], [place] [address] Apr, [facility] [address] [id number] [address] [place] [address], [place] [address] Apr, [facility] [address] [id number] [address] [place] [address], [place] [address] Apr, [facility] [address] [id number] [address] [place] [address], [place] [address] Jan, [facility] [address] [id number] [address] [place] [address], [place] [address] Jan, [facility] [address] [id number] [address] [place] [address], [place] [address] Jan, [facility] [address] [id number] [address] [place] [address], [place] [address] Jan, [facility] [address] [id number] [address] [place] [address], [place] [address] 06 Jan, 2013 [facility] [address] [id number] [address] [place] [address], [place] [address] Jan, [facility] [address] [id number] [address] [place] [address], [place] [address] Dec, [facility] [address] [id number] [address] [place] [address], [place] [address] Dec, [facility] [address] [id number] [address] [place] [address], [place] [address] Dec, [facility] [address] [id number] [address] [place] [address], [place] [address] Dec, [facility] [address] [id number] [address] [place] [address], [place] [address] Dec, [facility] [address] [id number] [address] [place] [address], [place] [address] Dec, [facility] [address] [id number] [address] [place] [address], [place] [address] Nov, [facility] [address] [id number] [address] [place] [address], [place] [address] Oct, [facility] [address] [id number] [address] [place] [address], [place] [address] Oct, [facility] [address] [id number] [address] [place] [address], [place] [address] Aug, [facility] [address] [id number] [address] [place] [address], [place] [address] Aug, [facility] [address] [id number] [address] [place] [address], [place] [address] Jul, [facility] [address] [id number] [address] [place] [address], [place] [address] June, [facility] [address] [id number] [address] [place] [address], [place] [address] Apr, [facility] [address] [id number] [address] [place] [address], [place] [address] 12 Apr, 2012 [facility] [address] [id number] [address] [place] [address], [place] [address] Apr, [facility] [address] [id number] [address] [place] [address], [place] [address] Apr, [facility] [address] [id number] [address] [place] [address], [place] [address] Mar, [facility] [address] [id number] [address] [place] [address], [place] [address] Jan, [facility] [address] [id number] [address] [place] [address], [place] [address] Jan, [facility] [address] [id number] [address] [place] [address], [place] [address] Jan, [facility] [address] [id number] [address] [place] [address], [place] [address] Jan, [facility] [address] [id number] [address] [place] [address], [place] [address] Jan, [facility] [address] [id number] [address] [place] [address], [place] [address] Jan, [facility] [address] [id number] [address] [place] [address], [place] [address] Jan, [facility] [address] [id number] [address] [place] [address], [place] [address] Jan, [facility] [address] [id number] [address] [place] [address], [place] [address] Nov, [facility] [address] [id number] [address] [place] [address], [place] [address] Nov, [facility] [address] [id number] [address] [place] [place] [address], [place] [id number] Nov, [facility] [address] [id number] [address] [place] [phone] 16 Dec, 2011 [facility] [address] [id number] [address] [place] [phone] 17 Nov, 2011 [facility] [address] [id number] [address] [place] [phone] 24 Oct, 2011 [facility] [address] [id number] [address] [place] [phone] 14 Aug, 2011 [facility] [address] [id number] [address] [place] [id number] 14 Aug, 2011 [facility] [address] [id number] [address] [place] [phone] 14 Aug, 2011 [facility] [address] [id number] [address] [place] [phone] 13 Aug, 2011 [facility] [place] [address] [id number] [address] [place] [phone] 13 Aug, 2011 [facility] [address] [id number] [address] [place] [phone] 20 May, 2011 [facility] [place] [address] [id number] [address] [place] [phone] 16 Apr, 2011 [facility] [place] [address] [id number] [address] [place] [phone] 16 Apr, 2011 [facility] [place] [address] [id number] [address] [place] [phone] Mar, [facility] [place] [address] [id number] [address] [place] [phone] Mar, [facility] [place] [address] [id number] [address] [place] [phone] Dec, [facility] [place] [address] [id number] [address] [place] [phone] Dec, [facility] [place] [address] [id number] [address] [place] [phone] Dec, IMMUNIZATIONS Vaccine Route Administration Date Status PCV 13 IM Intramuscular May 11, 2018 Administered SOCIAL HISTORY Never Assessed REASON FOR VISIT New provider visit PLAN OF CARE Activity Details Follow Up 3 Months Reason: VITAL SIGNS Height 75 in 2018-05-11 Weight 234 lbs 2018-05-11 BMI 29.24 kg/m2 2018-05-11 Blood pressure systolic 132 mmHg 2018-05-11 Blood pressure diastolic 88 mmHg 2018-05-11 MEDICATIONS Medication Instructions Dosage Frequency Start Date End Date Duration S tatus Gabapentin 300 MG Orally Three times a day 1 capsule 8h 30 Active Lisinopril 10 mg Orally Once a day 1 tablet 24h 30 Active Aspir-Low 81 MG Orally Once a day 1 tablet 24h Active GlipiZIDE 10 mg Orally Once a day 1 tablet 24h 30 Active Multi Vitamin Daily - Orally Once a day 1 tablet 24h Active Simvastatin 20 mg Orally Once a day 1 tablet in the evening 24h 90 days Active Naproxen 500 MG Orally every 12 hrs 1 tablet with food or milk as nee ded 12h Active Zoloft 50 mg Orally Once a day 1 tablet 24h 30 Active Metoprolol Succinate ER 25 MG Orally Once a day 1 tablet 24h Active Plavix 75 MG Orally Once a day 1 tablet 24h 30 Active Metformin HCl 1000 MG Orally twice a day 1 tablet with a meal 12h 30 Active RESULTS No Results PROCEDURES Procedure Date Ordered Result Body Site SINGLE IMMUNIZATION ADMIN May 11, 2018 PCV 13 May 11, 2018 INSTRUCTIONS MEDICATIONS ADMINISTERED No Known Medications [...]
--- OUTSIDE RECORDS SUMMARY | 2019-06-21 16:32 | XMS REPORT ---
Author Author Nick Roberts Doctor Organization [facility] Address Unknown Phone Unavailable Care Team Providers Care Sport Intern Name Role Phone Migration, Doctor Unavailable Unavailable PROBLEMS Type Condition ICD9-CM Code [id number] Code Onset Dates Condition S tatus SNOMED Code Problem Hypertension I10 Active 4334386 3 Problem Left leg claudication I73.9 Active 614683658 Problem Hyperlipidemia E78.5 Active 00122 004 Problem CAD (coronary artery disease) I25.10 Active 32991161 Problem Impaired circulation I99.9 Active 71933492 Problem Diabetes mellitus E11.9 Active 73 436525 Problem Cigarette nicotine dependence with nicotine-induced di sorder F17.219 Active 92724140 Problem DM neuro manif type II E11.49 Active 90538106 Problem Arthritis M19.90 Active 8801848 Problem Hypoglycemia E16.2 Active 4945461 03 Problem 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 Active 52840 005 Problem Tobacco abuse Z72.0 Active 008737 05 Problem Hammertoe M20.40 Active 603705912 Problem Essential (primary) hypertension I10 Active 31963866 Problem Reactive depression F32.9 Active 86752302 Problem Carotid artery disease I77.9 Active 843412905 Problem Hypercholesteremia E78.00 Active 2 46816639 Problem Type 2 diabetes mellitus E11.9 Activ e 28137429 Problem PAD (peripheral artery disease) I73.9 Active [id number] ALLERGIES No Information ENCOUNTERS Encounter Location Date Diagnosis [address] [address] Jul, [facility] [address] [facility] [id number] [address] [place] [address] Jul, [facility] [address] [facility] [id number] [address] [place] [address] June, Diabetes mellitus E11.[address] [address] May, [address] [place] [address] Apr, Type 2 diabetes mellitus E11.9 ; [...] M20.40 ; Arthritis M19.90 and Hypoglycemia E16.2 [place] [address] [facility] [id number] [address] [place] [address] Apr, Diabetes mellitus E11.9 [place] [address] [facility] [id number] [address] [place] [address] Apr, Onychomycosis B35.1 ; Impair ed circulation I99.9 and DM neuro manif type II E11.49 [place] [address] [facility] [id number] [address] [place] [address] Jan, Diabetes mellitus E11.9 ; Hy pertension I10 and Encounter for immunization Z23 [place] [address] [facility] [id number] [address] [place] [address] Jan, Diabetes mellitus E11.9 [place] [address] [facility] [id number] [address] [place] [address] Jan, [place] [address] [facility] [id number] [address] [place] [address] Jan, [place] [address] [facility] [id number] [address] [place] [address] Oct, Onychomycosis B35.1 ; DM chuck ro manif type II E11.49 and Impaired circulation I99.9 [place] [address] [facility] [id number] [address] [place] [address] Sep, [facility] [address] [facility] [id number] [address] [place] [address] Aug, Hypoglycemia E16.2 [facility] [address] [facility] [id number] [place] [address] Aug, [facility] [address] [place] [id number] [place] [address] Jul, [facility] [address] [facility] [id number] [place] [address] Jul, Elevated blood sugar R73.9 a nd Neck pain M54.2 [place] [address] [facility] [id number] [place] [address] Jul, [facility] [address] [place] [id number] [place] [address] Jul, Onychomycosis B35.1 and DM n euro manif type II E11.49 [place] [address] [address] Jul, [facility] [address] [place] [id number] [place] [address] June, Hyperlipidemia E78.5 [place] [address] [address] June, Diabetes mellitus E11.9 ; CA D (coronary artery disease) I25.10 ; Arthritis M19.90 and Hyperlipidemia E78.5 [place] [address] [facility] [id number] [address] [place] [address] June, [facility] [address] [facility] [id number] [address] [place] [address] Apr, Onychomycosis B35.1 ; DM chuck ro manif type II E11.49 and Hammertoe M20.40 [facility] [address] [place] [id number] [address] [place] [address] Apr, Diabetes mellitus E11.9 and Hypertension I10 [place] [address] [place] [address] Mar, Hypertension I10 and Diabete s mellitus E11.9 [place] [address] [address] Mar, Hypertension I10 and Diabete s mellitus E11.9 [place] [address] [address] Jan, Onychomycosis B35.1 and DM n euro manif type II E11.49 [place] [address] [place] [id number] [place] [address] Dec, [place] [address] [address] Dec, [place] [address] [address] Dec, Hypertension I10 and Diabete s mellitus E11.9 [place] [address] [address] Oct, Encounter for immunization Z 23 ; Diabetes mellitus E11.9 ; Hypertension I10 and Cigarette nicotine dependence with nicotine-induced disorder F17.219 [place] [address] [address] Oct, Diabetes mellitus E11.9 [place] [address] [address] Oct, Onychomycosis B35.1 ; DM chuck ro manif type II E11.49 and Hammertoe M20.40 [place] [address] [place] [id number] [address] [place] [address] Jul, Diabetes mellitus E11.9 [place] [address] [place] [id number] [address] [place] [address] Jul, Onychomycosis B35.1 ; Hammer toe M20.40 and DM neuro manif type II E11.49 [place] [address] [place] [id number] [address] [place] [address] May, Diabetes mellitus E11.9 [place] [address] [address] May, Diabetes mellitus E11.9 [place] [address] [address] Nov, Diabetes mellitus E11.9 ; Hy pertension I10 ; Reactive depression F32.9 and Encounter for immunization Z23 [place] [address] [address] Oct, Ulcer of other part of foot L97.509 [place] [address] [address] Sep, Onychomycosis B35.1 ; Ulcer of heel, left, with unspecified severity L97.429 and DM neuro manif type II E11.49 [place] [address] [address] Sep, [place] [address] [address] Sep, Ulcer of heel, left, with un specified severity L97.429 [place] [address] [address] Aug, Onychomycosis B35.1 ; Ulcer of heel, left, with unspecified severity L97.429 and DM neuro manif type II E11.49 [place] [address] [place] [id number] [address] [place] [address] Jul, Diabetes mellitus E11.9 ; Hy pertension I10 ; Cigarette nicotine dependence with nicotine-induced disorder F17.219 and CAD (coronary artery disease) I25.10 [place] [address] [place] [id number] [address] [place] [address] Jul, Left leg claudication I73.9 ; Right leg claudication I73.9 ; CAD (coronary artery disease) I25.10 ; Hypertension I10 and Hyperlipidemia E78.5 [facility] [address] [id number] [address] [place] [address] Jul, Ulcer of heel, left, with un specified severity L97.429 and DM neuro manif type II E11.49 [facility] [address] [facility] [id number] [address] [place] [address] June, Ulcer of heel, left, with un specified severity L97.429 and Ulcer of other part of foot L97.509 [facility] [address] [facility] [id number] [address] [place] [address] June, Ulcer of heel, left, with un specified severity L97.429 and Ulcer of foot, left, with unspecified severity L97.529 [place] [address] [facility] [id number] [address] [place] [address] May, [place] [address] [facility] [id number] [address] [place] [address] May, [place] [address] [facility] [id number] [address] [place] [address] Apr, DM neuro manif type II E11.4 9 ; Hypertension I10 and Sleep apnea in adult G47.33 [place] [address] [facility] [id number] [address] [place] [address] Apr, [place] [address] [facility] [id number] [address] [place] [address] Apr, Ulcer of foot L97.509 and DM neuro manif type II E11.49 [facility] [address] [facility] [id number] [address] [place] [address] Apr, Ulcer of other part of foot L97.509 and DM neuro manif type II E11.49 [place] [address] [facility] [id number] [address] [place] [address] Apr, Onychomycosis B35.1 ; Ingrow n toenail L60.0 ; Impaired circulation I99.9 and DM neuro manif type II E11.49 [place] [address] [address] 08 Mar, 2015 Ulcer of other part of foot L97.509 ; Onychomycosis B35.1 and Diabetes mellitus E11.9 [place] [address] [address] Dec, Encounter for immunization Z 23 ; Hypertension I10 and Diabetes mellitus E11.[address] [address] Dec, [address] [address] Dec, CAD (coronary artery disease ) I25.10 ; Hypertension I10 ; Left leg claudication I73.9 and Hyperlipidemia E78.[address] [address] Nov, Onychomycosis B35.1 and Vin ertoe M20.40 [place] [address] [address] Sep, Coronary atherosclerosis of unspecified type of vessel, [place] or graft 414.[address] [address] Sep, Coronary atherosclerosis of unspecified type of vessel, [place] or graft 414.00 and Diabetes 250.[address] [address] May, [place] [address] [address] May, [place] [address] [address] Apr, [place] [address] [address] Apr, [place] [address] [address] Apr, [facility] [address] [id number] [address] [place] [address], [place] [address] Apr, [facility] [address] [id number] [address] [place] [address], [place] [address] Mar, [facility] [address] [id number] [address] [place] [address], [place] [address] Mar, [facility] [address] [id number] [address] [place] [address], [place] [address] Jan, [facility] [address] [id number] [address] [place] [address], [place] [address] Jan, [facility] [address] [id number] [address] [place] [address], [place] [address] Jan, [facility] [address] [id number] [address] [place] [address], [place] [address] Jan, [facility] [address] [id number] [address] [place] [address], [place] [address] Jan, [facility] [address] [id number] [address] [place] [address], [place] [address] Jan, [facility] [address] [id number] [address] [place] [address], [place] [address] Jan, [facility] [address] [id number] [address] [place] [address], [place] [address] Jan, [facility] [address] [id number] [address] [place] [address], [place] [address] Jan, [facility] [address] [id number] [address] [place] [address], [place] [address] Jan, [facility] [address] [id number] [address] [place] [address], [place] [address] Jan, [facility] [address] [id number] [address] [place] [address], [place] [address] Nov, [facility] [address] [id number] [address] [place] [address], [place] [address] Nov, [facility] [address] [id number] [address] [place] [address], [place] [address] Nov, [facility] [address] [id number] [address] [place] [address], [place] [address] Nov, [facility] [address] [id number] [address] [place] [address], [place] [address] 15 Nov, 2013 [facility] [address] [id number] [address] [place] [address], [place] [address] 15 Nov, 2013 [facility] [address] [id number] [address] [place] [address], [place] [address] 19 Oct, 2013 [facility] [address] [id number] [address] [place] [address], [place] [address] 19 Oct, 2013 [facility] [address] [id number] [address] [place] [address], [place] [address] 19 Oct, 2013 [facility] [address] [id number] [address] [place] [address], [place] [address] 19 Oct, 2013 [facility] [address] [id number] [address] [place] [address], [place] [address] 05 Oct, 2013 [facility] [address] [id number] [address] [place] [address], [place] [address] 05 Oct, 2013 [facility] [address] [id number] [address] [place] [address], [place] [address] Sep, [facility] [address] [id number] [address] [place] [address], [place] [address] Sep, [facility] [address] [id number] [address] [place] [address], [place] [address] Sep, [facility] [address] [id number] [address] [place] [address], [place] [address] Sep, [facility] [address] [id number] [address] [place] [address], [place] [address] Sep, [facility] [address] [id number] [address] [place] [address], [place] [address] Sep, [facility] [address] [id number] [address] [place] [address], [place] [address] Aug, [facility] [address] [id number] [address] [place] [address], [place] [address] Aug, [facility] [address] [id number] [address] [place] [address], [place] [address] Aug, [facility] [address] [id number] [address] [place] [address], [place] [address] Aug, [facility] [address] [id number] [address] [place] [address], [place] [address] Aug, [facility] [address] [id number] [address] [place] [address], [place] [address] Aug, [facility] [address] [id number] [address] [place] [address], [place] [address] Jul, [facility] [address] [id number] [address] [place] [address], [place] [address] Jul, [facility] [address] [id number] [address] [place] [address], [place] [address] Jul, [facility] [address] [id number] [address] [place] [address], [place] [address] Jul, [facility] [address] [id number] [address] [place] [address], [place] [address] June, [facility] [address] [id number] [address] [place] [address], [place] [address] June, [facility] [address] [id number] [address] [place] [address], [place] [address] June, [facility] [address] [id number] [address] [place] [address], [place] [address] June, [facility] [address] [id number] [address] [place] [address], [place] [address] May, [facility] [address] [id number] [address] [place] [address], [place] [address] May, [facility] [address] [id number] [address] [place] [address], [place] [address] May, [facility] [address] [id number] [address] [place] [address], [place] [address] May, [facility] [address] [id number] [address] [place] [address], [place] [address] May, [facility] [address] [id number] [address] [place] [address], [place] [address] May, [facility] [address] [id number] [address] [place] [address], [place] [address] Apr, [facility] [address] [id number] [address] [place] [address], [place] [address] Apr, [facility] [address] [id number] [address] [place] [address], [place] [address] Apr, [facility] [address] [id number] [address] [place] [address], [place] [address] Apr, [facility] [address] [id number] [address] [place] [address], [place] [address] Apr, [facility] [address] [id number] [address] [place] [address], [place] [address] Apr, [facility] [address] [id number] [address] [place] [address], [place] [address] Apr, [facility] [address] [id number] [address] [place] [address], [place] [address] Jan, [facility] [address] [id number] [address] [place] [address], [place] [address] Jan, [facility] [address] [id number] [address] [place] [address], [place] [address] Jan, [facility] [address] [id number] [address] [place] [address] Jan, [facility] [address] [id number] [address] [place] [address], [place] [address] Jan, [facility] [address] [id number] [address] [place] [address] Jan, [facility] [address] [id number] [address] [place] [address], [place] [address] Dec, [facility] [address] [id number] [address] [place] [address], [place] [address] Dec, [facility] [address] [id number] [address] [place] [address], [place] [address] Dec, [facility] [address] [id number] [address] [place] [address], [place] [address] Dec, [facility] [address] [id number] [address] [place] [address] Dec, [facility] [address] [id number] [address] [place] [address], [place] [address] Dec, [facility] [address] [id number] [address] [place] [address], [place] [address] Nov, [facility] [address] [id number] [address] [place] [address], [place] [address] Oct, [facility] [address] [id number] [address] [place] [address], [place] [address] Oct, [facility] [address] [id number] [address] [place] [address] Aug, [facility] [address] [id number] [address] [place] [address] Aug, [facility] [address] [id number] [address] [place] [address], [place] [address] Jul, [facility] [address] [id number] [address] [place] [address], [place] [address] June, [facility] [address] [id number] [address] [place] [address], [place] [address] Apr, [facility] [address] [id number] [address] [place] [address], [place] [address] Apr, [facility] [address] [id number] [address] [place] [address], [place] [address] Apr, [facility] [address] [id number] [address] [place] [address], [place] [address] Apr, [facility] [address] [id number] [address] [place] [address], [place] [address] Mar, [facility] [address] [id number] [address] [place] [address], [place] [address] Jan, [facility] [address] [id number] [address] [place] [address], [place] [address] Jan, [facility] [address] [id number] [address] [place] [address], [place] [address] Jan, [facility] [address] [id number] [address] [place] [address], [place] [address] Jan, [facility] [address] [id number] [address] [place] [address], [place] [address] Jan, [facility] [address] [id number] [address] [place] [address], [place] [address] Jan, [facility] [address] [id number] [address] [place] [address], [place] [address] Jan, [facility] [address] [id number] [address] [place] [address], [place] [address] Jan, [facility] [address] [id number] [address] [place] [address], [place] [address] Nov, [facility] [address] [id number] [address] [place] [address], [place] [address] Nov, [facility] [address] [id number] [address] [place] [address], [place] [address] 16 Dec, 2011 [facility] [address] [id number] [address] [place] [address], [place] [address] 16 Dec, 2011 [facility] [address] [id number] [address] [place] [address], [place] [address] 17 Nov, 2011 [facility] [address] [id number] [address] [place] [address], [place] [address] 24 Oct, 2011 [facility] [address] [id number] [address] [place] [address], [place] [address] 14 Aug, 2011 [facility] [address] [id number] [address] [place] [address], [place] [address] 14 Aug, 2011 [facility] [address] [id number] [address] [place] [address], [place] [address] 14 Aug, 2011 [facility] [address] [id number] [address] [place] [address], [place] [address] 13 Aug, 2011 [facility] [address] [id number] [address] [place] [address], [place] [address] 13 Aug, 2011 [facility] [address] [id number] [address] [place] [address], [place] [address] Apr, [facility] [address] [id number] [address] [place] [address], [place] [address] 16 Apr, 2011 [facility] [address] [id number] [address] [place] [address], [place] [address] 16 Apr, 2011 [facility] [address] [id number] [address] [place] [address], [place] [address] Mar, [facility] [address] [id number] [address] [place] [address], [place] [address] Mar, [facility] [address] [id number] [address] [place] [address], [place] [address] Dec, [facility] [address] [id number] [address] [place] [address], [place] [address] Dec, [facility] [address] [id number] [address] [place] [address] Dec, IMMUNIZATIONS No Known Immunizations SOCIAL HISTORY Never Assessed REASON FOR VISIT EMR-[facility] [place] PLAN OF CARE VITAL SIGNS MEDICATIONS Unknown [...]
--- OUTSIDE RECORDS SUMMARY | 2019-06-21 16:32 | XMS REPORT ---
Author Author Nikc Roberts Doctor Organization [facility] Address Unknown Phone Unavailable Care Team Providers Care Health Care Analyst Name Role Phone Migration, Doctor Unavailable Unavailable PROBLEMS Type Condition ICD9-CM Code [id number] Code Onset Dates Condition S tatus SNOMED Code Problem Hypertension I10 Active 8978335 3 Problem Left leg claudication I73.9 Active 010229098 Problem Hyperlipidemia E78.5 Active 96566 004 Problem CAD (coronary artery disease) I25.10 Active 60107676 Problem Impaired circulation I99.9 Active 01185793 Problem Diabetes mellitus E11.9 Active 73 689806 Problem Cigarette nicotine dependence with nicotine-induced di sorder F17.219 Active 56922683 Problem DM neuro manif type II E11.49 Active 81932001 Problem Arthritis M19.90 Active 0153945 Problem Hypoglycemia E16.2 Active 4890720 03 Problem 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 Active 10895 005 Problem Tobacco abuse Z72.0 Active 077413 05 Problem Hammertoe M20.40 Active 349131508 Problem Essential (primary) hypertension I10 Active 98341962 Problem Reactive depression F32.9 Active 63730522 Problem Carotid artery disease I77.9 Active 649871488 Problem Hypercholesteremia E78.00 Active 2 09191423 Problem Type 2 diabetes mellitus E11.9 Activ e 32234659 Problem PAD (peripheral artery disease) I73.9 Active 147240587 ALLERGIES No Information ENCOUNTERS Encounter Location Date Diagnosis [address] [address] Jul, [facility] [address] [facility] [id number] [place] [address] Jul, [address] [address] Apr, Type 2 diabetes mellitus E11.9 ; [...] M20.40 ; Arthritis M19.90 and Hypoglycemia E16.2 [place] [address] [address] [facility] [id number] [address] [place] [address] Apr, Diabetes mellitus E11.9 [place] [address] [address] [facility] [id number] [address] [place] [address] Apr, Onychomycosis B35.1 ; Impair ed circulation I99.9 and DM neuro manif type II E11.49 [place] [address] [address] [facility] [id number] [address] [place] [address] Jan, Diabetes mellitus E11.9 ; Hy pertension I10 and Encounter for immunization Z23 [place] [address] [address] [facility] [id number] [address] [place] [address] Jan, Diabetes mellitus E11.9 [place] [address] [address] [facility] [id number] [address] [place] [address] Jan, [place] [address] [address] [facility] [id number] [address] [place] [address] Jan, [place] [address] [address] [facility] [id number] [address] [place] [address] Oct, Onychomycosis B35.1 ; DM chuck ro manif type II E11.49 and Impaired circulation I99.9 [facility] [address] [facility] [id number] [address] [place] [address] Sep, [place] [address] [address] [facility] [id number] [address] [place] [address] Aug, Hypoglycemia E16.2 [place] [address] [address] [facility] [id number] [address] [place] [address] Aug, [place] [address] [address] Jul, [place] [address] [address] Jul, Elevated blood sugar R73.9 a nd Neck pain M54.2 [place] [address] [address] Jul, [place] [address] [address] Jul, Onychomycosis B35.1 and DM n euro manif type II E11.49 [place] [address] [address] Jul, [place] [address] [address] June, Hyperlipidemia E78.5 [place] [address] [address] June, Diabetes mellitus E11.9 ; CA D (coronary artery disease) I25.10 ; Arthritis M19.90 and Hyperlipidemia E78.5 [place] [address] [address] June, [place] [address] [address] Apr, Onychomycosis B35.1 ; DM chuck ro manif type II E11.49 and Hammertoe M20.40 [place] [address] [address] Apr, Diabetes mellitus E11.9 and Hypertension I10 [place] [address] [address] Mar, Hypertension I10 and Diabete s mellitus E11.9 [place] [address] [address] Mar, Hypertension I10 and Diabete s mellitus E11.9 [place] [address] [facility] [id number] [address] [place] [address] Jan, Onychomycosis B35.1 and DM n euro manif type II E11.49 [place] [address] [address] [place] [id number] [address] [place] [address] Dec, [place] [address] [address] Dec, [place] [address] [address] [place] [id number] [address] Dec, Hypertension I10 and Diabete s mellitus E11.9 [place] [address] [address] [place] [id number] [place] [address] Oct, Encounter for immunization Z 23 ; Diabetes mellitus E11.9 ; Hypertension I10 and Cigarette nicotine dependence with nicotine-induced disorder F17.219 [place] [address] [place] [address] Oct, Diabetes mellitus E11.9 [place] [address] [address] Oct, Onychomycosis B35.1 ; DM chuck ro manif type II E11.49 and Hammertoe M20.40 [place] [address] [place] [address] Jul, Diabetes mellitus E11.9 [place] [address] [address] [place] [id number] [address] [place] [address] Jul, Onychomycosis B35.1 ; Hammer toe M20.40 and DM neuro manif type II E11.49 [place] [address] [address] [place] [id number] [address] [place] [address] May, Diabetes mellitus E11.9 [place] [address] [address] [place] [id number] [address] [place] [address] May, Diabetes mellitus E11.9 [place] [address] [address] Nov, Diabetes mellitus E11.9 ; Hy pertension I10 ; Reactive depression F32.9 and Encounter for immunization Z23 [place] [address] [place] [address] Oct, Ulcer of other part of foot L97.[address] [address] Sep, Onychomycosis B35.1 ; Ulcer of heel, left, with unspecified severity L97.429 and DM neuro manif type II E11.[address] [address] Sep, [address] [address] Sep, Ulcer of heel, left, with un specified severity L97.[address] [address] Aug, Onychomycosis B35.1 ; Ulcer of heel, left, with unspecified severity L97.429 and DM neuro manif type II E11.[address] [address] Jul, Diabetes mellitus E11.9 ; Hy pertension I10 ; Cigarette nicotine dependence with nicotine-induced disorder F17.219 and CAD (coronary artery disease) I25.[address] [address] Jul, Left leg claudication I73.9 ; Right leg claudication I73.9 ; CAD (coronary artery disease) I25.10 ; Hypertension I10 and Hyperlipidemia E78.[address] [address] Jul, Ulcer of heel, left, with un specified severity L97.429 and DM neuro manif type II E11.49 [place] [id number] [place] [address] June, Ulcer of heel, left, with un specified severity L97.429 and Ulcer of other part of foot L97.509 [facility] [address] [place] [id number] [address] [place] [address] June, Ulcer of heel, left, with un specified severity L97.429 and Ulcer of foot, left, with unspecified severity L97.529 [place] [address] [place] [id number] [address] [place] [address] May, [place] [address] [address] [place] [id number] [place] [address] May, [place] [address] [address] [place] [id number] [address] Apr, DM neuro manif type II E11.4 9 ; Hypertension I10 and Sleep apnea in adult G47.33 [place] [address] [address] [place] [id number] [address] [place] [address] Apr, [place] [address] [address] [facility] [id number] [address] [place] [address] Apr, Ulcer of foot L97.509 and DM neuro manif type II E11.49 [place] [address] [address] [place] [id number] [address] [place] [address] Apr, Ulcer of other part of foot L97.509 and DM neuro manif type II E11.49 [place] [address] [address] [place] [id number] [address] [place] [address] Apr, Onychomycosis B35.1 ; Ingrow n toenail L60.0 ; Impaired circulation I99.9 and DM neuro manif type II E11.49 [place] [address] [address] [place] [id number] [address] [place] [address] Mar, Ulcer of other part of foot L97.509 ; Onychomycosis B35.1 and Diabetes mellitus E11.9 [place] [address] [address] [place] [id number] [address] [place] [address] Dec, Encounter for immunization Z 23 ; Hypertension I10 and Diabetes mellitus E11.9 [facility] [address] [address] Dec, [facility] [address] [address] Dec, CAD (coronary artery disease ) I25.10 ; Hypertension I10 ; Left leg claudication I73.9 and Hyperlipidemia E78.5 [place] [address] [address] Nov, Onychomycosis B35.1 and Vin ertoe M20.40 [place] [address] [address] Sep, Coronary atherosclerosis of unspecified type of vessel, [place] or graft 414.00 [place] [address] [address] Sep, Coronary atherosclerosis of unspecified type of vessel, [place] or graft 414.00 and Diabetes 250.00 [place] [address] [address] May, [facility] [address] [address] May, [facility] [address] [address] Apr, [facility] [address] [address] Apr, [facility] [address] [address] Apr, [facility] [address] [address] Apr, [facility] [address] [address] Mar, [facility] [address] [id number] [address] [place] [address], [place] [address] Mar, [facility] [address] [id number] [address] [place] [address], [place] [address] Jan, [facility] [address] [id number] [address] [place] [address], [place] [address] Jan, [facility] [address] [id number] [address] [place] [address], [place] [address] Jan, [facility] [address] [id number] [address] [place] [address], [place] [address] Jan, [facility] [address] [id number] [address] [place] [address], [place] [address] Jan, [facility] [address] [id number] [address] [place] [address], [place] [address] Jan, [facility] [address] [id number] [address] [place] [address], [place] [address] Jan, [facility] [address] [id number] [address] [place] [address], [place] [address] Jan, [facility] [address] [id number] [address] [place] [address], [place] [address] Jan, [facility] [address] [id number] [address] [place] [address], [place] [address] Jan, [facility] [address] [id number] [address] [place] [address], [place] [address] Jan, [facility] [address] [id number] [address] [place] [address], [place] [address] Nov, [facility] [address] [id number] [address] [place] [address], [place] [address] Nov, [facility] [address] [id number] [address] [place] [address], [place] [address] Nov, [facility] [address] [id number] [address] [place] [address], [place] [address] Nov, [facility] [address] [id number] [address] [place] [address], [place] [address] 15 Nov, 2013 [facility] [address] [id number] [address] [place] [address], [place] [address] 15 Nov, 2013 [facility] [address] [id number] [address] [place] [address], [place] [address] 19 Oct, 2013 [facility] [address] [id number] [address] [place] [address], [place] [address] 19 Oct, 2013 [facility] [address] [id number] [address] [place] [address], [place] [address] 19 Oct, 2013 [facility] [address] [id number] [address] [place] [address], [place] [address] 19 Oct, 2013 [facility] [address] [id number] [address] [place] [address], [place] [address] 05 Oct, 2013 [facility] [address] [id number] [address] [place] [address], [place] [address] 05 Oct, 2013 [facility] [address] [id number] [address] [place] [address], [place] [address] Sep, [facility] [address] [id number] [address] [place] [address], [place] [address] Sep, [facility] [address] [id number] [address] [place] [address], [place] [address] Sep, [facility] [address] [id number] [address] [place] [address], [place] [address] Sep, [facility] [address] [id number] [address] [place] [address], [place] [address] Sep, [facility] [address] [id number] [address] [place] [address], [place] [address] Sep, [facility] [address] [id number] [address] [place] [address], [place] [address] Aug, [facility] [address] [id number] [facility] [place] [place] [address] Aug, [facility] [address] [id number] [address] [place] [address], [place] [address] Aug, [facility] [address] [id number] [facility] [place] [place] [address] Aug, [facility] [address] [id number] [address] [place] [address], [place] [address] Aug, [facility] [address] [id number] [address] [place] [address], [place] [address] Aug, [facility] [address] [id number] [address] [place] [address], [place] [address] Jul, [facility] [address] [id number] [address] [place] [address], [place] [address] Jul, [facility] [address] [id number] [address] [place] [address], [place] [address] Jul, [facility] [address] [id number] [address] [place] [address], [place] [address] Jul, [facility] [address] [id number] [address] [place] [address], [place] [address] June, [facility] [address] [id number] [address] [place] [address], [place] [address] June, [facility] [address] [id number] [address] [place] [address], [place] [address] June, [facility] [address] [id number] [address] [place] [address], [place] [address] June, [facility] [address] [id number] [address] [place] [address], [place] [address] May, [facility] [address] [id number] [address] [place] [address], [place] [address] May, [facility] [address] [id number] [address] [place] [address], [place] [address] May, [facility] [address] [id number] [address] [place] [address], [place] [address] May, [facility] [address] [id number] [address] [place] [address], [place] [address] May, [facility] [address] [id number] [address] [place] [address], [place] [address] May, [facility] [address] [id number] [address] [place] [address], [place] [address] Apr, [facility] [address] [id number] [address] [place] [address], [place] [address] Apr, [facility] [address] [id number] [address] [place] [address], [place] [address] Apr, [facility] [address] [id number] [address] [place] [address], [place] [address] Apr, [facility] [address] [id number] [address] [place] [address], [place] [address] Apr, [facility] [address] [id number] [address] [place] [address], [place] [address] Apr, [facility] [address] [id number] [address] [place] [address], [place] [address] Apr, [facility] [address] [id number] [address] [place] [address], [place] [address] Jan, [facility] [address] [id number] [address] [place] [address], [place] [address] Jan, [facility] [address] [id number] [address] [place] [address], [place] [address] Jan, [facility] [address] [id number] [address] [place] [address], [place] [address] Jan, [facility] [address] [id number] [address] [place] [address], [place] [address] Jan, [facility] [address] [id number] [address] [place] [address], [place] [address] Jan, [facility] [address] [id number] [address] [place] [address], [place] [address] Dec, [facility] [address] [id number] [address] [place] [address] Dec, [facility] [address] [id number] [address] [place] [address], [place] [address] Dec, [facility] [address] [id number] [address] [place] [address], [place] [address] Dec, [facility] [address] [id number] [address] [place] [address], [place] [address] Dec, [facility] [address] [id number] [address] [place] [address], [place] [address] Dec, [facility] [address] [id number] [address] [place] [address], [place] [address] Nov, [facility] [address] [id number] [address] [place] [address], [place] [address] Oct, [facility] [address] [id number] [address] [place] [address], [place] [address] Oct, [facility] [address] [id number] [address] [place] [address] Aug, [facility] [address] [id number] [address] [place] [address], [place] [address] Aug, [facility] [address] [id number] [address] [place] [address] Jul, [facility] [address] [id number] [address] [place] [address], [place] [address] June, [facility] [address] [id number] [address] [place] [address] Apr, [facility] [address] [id number] [address] [place] [address] Apr, [facility] [address] [id number] [address] [place] [address], [place] [address] 08 Apr, 2012 [facility] [address] [id number] [address] [place] [address], [place] [address] Apr, [facility] [address] [id number] [address] [place] [address], [place] [address] Mar, [facility] [address] [id number] [address] [place] [address], [place] [address] Jan, [facility] [address] [id number] [address] [place] [address], [place] [address] Jan, [facility] [address] [id number] [address] [place] [address], [place] [address] Jan, [facility] [address] [id number] [address] [place] [address], [place] [address] Jan, [facility] [address] [id number] [address] [place] [address], [place] [address] Jan, [facility] [address] [id number] [address] [place] [address], [place] [address] Jan, [facility] [address] [id number] [address] [place] [address], [place] [address] Jan, [facility] [address] [id number] [address] [place] [address], [place] [phone] Jan, [facility] [address] [id number] [address] [place] [address], [place] [phone] Nov, [facility] [address] [id number] [address] [place] [address], [place] [phone] Nov, [facility] [address] [id number] [address] [place] [address], [place] [address] Nov, [facility] [address] [id number] [address] [place] [address], [place] [address] Nov, [facility] [address] [id number] [address] [place] [phone] 17 Nov, 2011 [facility] [address] [id number] [address] [place] [phone] Sep, [facility] [address] [id number] [address] [place] [phone] 14 Aug, 2011 [facility] [address] [id number] [address] [place] [phone] 14 Aug, 2011 [facility] [address] [id number] [address] [place] [phone] 14 Aug, 2011 [facility] [address] [id number] [address] [place] [phone] Jul, [facility] [address] [id number] [address] [place] [phone] Jul, [facility] [address] [id number] [address] [place] [phone] Apr, [facility] [address] [id number] [address] [place] [phone] 16 Apr, 2011 [facility] [address] [id number] [address] [place] [phone] Apr, [facility] [address] [id number] [address] [place] [phone] Mar, [facility] [address] [id number] [address] [place] [phone] Mar, [facility] [address] [id number] [address] [place] [id number] Dec, [facility] [address] [id number] [address] [place] [phone] Dec, [facility] [address] [id number] [address] [place] [phone] Dec, IMMUNIZATIONS No Known Immunizations SOCIAL HISTORY Never Assessed [place]AS[place] [place] VITAL SIGNS MEDICATIONS Unknown [...]
--- OUTSIDE RECORDS SUMMARY | 2019-06-21 16:32 | XMS REPORT ---
Author Author Nick ABDI Organization [facility] Address [address] [place] [address] Care Team Providers Care Air Director Name Role Phone ELVIN ABDI Unavailable PROBLEMS Type Condition ICD9-CM Code RRC43-LZ Code Onset Dates Condition S tatus SNOMED Code Problem CAD (coronary artery disease) I25.10 Active 92849954 Problem Hypertension I10 Active 3449573 3 Problem Diabetes mellitus E11.9 Active 73 009202 Problem Hyperlipidemia E78.5 Active 43846 004 Problem Impaired circulation I99.9 Active 21896359 Problem DM neuro manif type II E11.49 Active 05574648 Problem Reactive depression F32.9 Active 09023684 Problem Cigarette nicotine dependence with nicotine-induced di sorder F17.219 Active 96480405 Problem Hypoglycemia E16.2 Active 5515428 03 Problem 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 Active 39507 005 Problem Carotid artery disease I77.9 Active 019834432 Problem Tobacco abuse Z72.0 Active 846948 05 Problem Arthritis M19.90 Active 7406954 Problem Panlobular emphysema J43.1 Active 9983170 Problem Hammertoe M20.40 Active 984970774 Problem Left leg claudication I73.9 Active 499694107 Problem Hypercholesteremia E78.00 Active 2 66772451 Problem Type 2 diabetes mellitus E11.9 Activ e 36021549 Problem PAD (peripheral artery disease) I73.9 Active 014573210 Problem Essential (primary) hypertension I10 Active 14367779 ALLERGIES No Information ENCOUNTERS Encounter Location Date Diagnosis [address] [address] Oct, [facility] [address] [facility] [id number] [address] [place] [address] Oct, [facility] [address] [facility] [id number] [address] [place] [address] Aug, [address] [address] Jul, Encounter for screening for malignant ne oplasm of colon Z12.11 ; CAD (coronary artery disease) I25.10 ; Cigarette nicotine dependence with nicotine- induced disorder F17.219 ; Essential (primary) hypertension I10 ; Panlobular emphysema J43.1 and DM neuro manif type II E11.[address] [address] Jul, Type 2 diabetes mellitus E11.[address] [address] Jul, [facility] [address] [facility] [id number] [address] [place] [address] Jul, Onychomycosis B35.1 and DM n euro manif type II E11.49 [facility] [address] [facility] [id number] [address] [place] [address] June, Diabetes mellitus E11.[address] [address] May, [address] [address] Apr, Type 2 diabetes mellitus E11.9 ; [...] M20.40 ; Arthritis M19.90 and Hypoglycemia E16.2 [facility] [address] [facility] [id number] [address] [place] [address] Apr, Diabetes mellitus E11.9 [facility] [address] [facility] [id number] [address] [place] [address] Apr, Onychomycosis B35.1 ; Impair ed circulation I99.9 and DM neuro manif type II E11.49 [facility] [address] [id number] [address] [place] [address] Jan, Diabetes mellitus E11.9 ; Hy pertension I10 and Encounter for immunization Z23 [facility] [address] [id number] [address] [place] [address] Jan, Diabetes mellitus E11.9 [facility] [address] [id number] [address] [place] [address] Jan, [facility] [address] [id number] [address] [place] [address] Jan, [facility] [address] [id number] [address] [place] [address] Oct, Onychomycosis B35.1 ; DM chuck ro manif type II E11.49 and Impaired circulation I99.9 [facility] [address] [id number] [address] [place] [address] Sep, [place] [address] [id number] [address] [place] [address] Aug, Hypoglycemia E16.2 [facility] [address] [id number] [address] [place] [address] Aug, [facility] [address] [id number] [address] [place] [address] Jul, [facility] [address] [id number] [address] [place] [address] Jul, Elevated blood sugar R73.9 a nd Neck pain M54.2 [facility] [address] [id number] [address] [place] [address] Jul, [facility] [address] [id number] [address] [place] [address] Jul, Onychomycosis B35.1 and DM n euro manif type II E11.49 [facility] [address] [facility] [id number] [address] [place] [address] Jul, [facility] [address] [facility] [id number] [address] [place] [address] June, Hyperlipidemia E78.5 [facility] [address] [place] [id number] [place] [address] June, Diabetes mellitus E11.9 ; CA D (coronary artery disease) I25.10 ; Arthritis M19.90 and Hyperlipidemia E78.5 [facility] [address] [facility] [id number] [address] [place] [address] June, [facility] [address] [place] [id number] [place] [address] Apr, Onychomycosis B35.1 ; DM chuck ro manif type II E11.49 and Hammertoe M20.40 [facility] [address] [place] [id number] [address] [place] [address] Apr, Diabetes mellitus E11.9 and Hypertension I10 [place] [address] [place] [id number] [address] [place] [address] Mar, Hypertension I10 and Diabete s mellitus E11.9 [place] [address] [place] [id number] [address] [place] [address] Mar, Hypertension I10 and Diabete s mellitus E11.9 [place] [address] [facility] [id number] [address] [place] [address] Jan, Onychomycosis B35.1 and DM n euro manif type II E11.49 [facility] [place] [address] [facility] [id number] [address] [place] [address] Dec, [place] [address] [place] [id number] [place] [address] Dec, [facility] [address] [place] [id number] [place] [address] 13 Nov, 2017 Hypertension I10 and Diabete s mellitus E11.9 [place] [address] [place] [address] Oct, Encounter for immunization Z 23 ; Diabetes mellitus E11.9 ; Hypertension I10 and Cigarette nicotine dependence with nicotine-induced disorder F17.219 [place] [address] [place] [address] Oct, Diabetes mellitus E11.9 [place] [address] [place] [address] Oct, Onychomycosis B35.1 ; DM chuck ro manif type II E11.49 and Hammertoe M20.40 [facility] [address] [place] [id number] [address] [place] [address] Jul, Diabetes mellitus E11.[address] [address] Jul, Onychomycosis B35.1 ; Hammer toe M20.40 and DM neuro manif type II E11.49 [place] [address] [place] [address] May, Diabetes mellitus E11.9 [place] [address] [place] [id number] [address] [place] [address] May, Diabetes mellitus E11.9 [place] [address] [address] Nov, Diabetes mellitus E11.9 ; Hy pertension I10 ; Reactive depression F32.9 and Encounter for immunization Z23 [place] [address] [facility] [id number] [address] [place] [address] Oct, Ulcer of other part of foot L97.509 [place] [address] [place] [id number] [address] [place] [address] Sep, Onychomycosis B35.1 ; Ulcer of heel, left, with unspecified severity L97.429 and DM neuro manif type II E11.49 [place] [address] [facility] [id number] [address] [place] [address] Sep, [place] [address] [facility] [id number] [address] [place] [address] Sep, Ulcer of heel, left, with un specified severity L97.429 [place] [address] [place] [id number] [address] [place] [address] Aug, Onychomycosis B35.1 ; Ulcer of heel, left, with unspecified severity L97.429 and DM neuro manif type II E11.49 [place] [address] [facility] [id number] [address] [place] [address] Jul, Diabetes mellitus E11.9 ; Hy pertension I10 ; Cigarette nicotine dependence with nicotine-induced disorder F17.219 and CAD (coronary artery disease) I25.10 [place] [address] [place] [id number] [place] [address] Jul, Left leg claudication I73.9 ; Right leg claudication I73.9 ; CAD (coronary artery disease) I25.10 ; Hypertension I10 and Hyperlipidemia E78.5 [place] [address] [place] [id number] [address] [place] [address] Jul, Ulcer of heel, left, with un specified severity L97.429 and DM neuro manif type II E11.49 [place] [address] [facility] [id number] [address] [place] [address] June, Ulcer of heel, left, with un specified severity L97.429 and Ulcer of other part of foot L97.509 [place] [address] [facility] [id number] [address] [place] [address] June, Ulcer of heel, left, with un specified severity L97.429 and Ulcer of foot, left, with unspecified severity L97.529 [place] [address] [facility] [id number] [address] [place] [address] May, [place] [address] [place] [id number] [place] [address] May, [facility] [address] [facility] [id number] [address] [place] [address] Apr, DM neuro manif type II E11.4 9 ; Hypertension I10 and Sleep apnea in adult G47.33 [facility] [address] [facility] [id number] [address] [place] [address] Apr, [facility] [address] [facility] [id number] [address] [place] [address] Apr, Ulcer of foot L97.509 and DM neuro manif type II E11.49 [place] [address] [facility] [id number] [address] [place] [address] Apr, Ulcer of other part of foot L97.509 and DM neuro manif type II E11.49 [place] [address] [facility] [id number] [address] [place] [address] Apr, Onychomycosis B35.1 ; Ingrow n toenail L60.0 ; Impaired circulation I99.9 and DM neuro manif type II E11.49 [place] [address] [facility] [id number] [address] [place] [address] Mar, Ulcer of other part of foot L97.509 ; Onychomycosis B35.1 and Diabetes mellitus E11.9 [place] [address] [place] [id number] [address] [place] [address] Dec, Encounter for immunization Z 23 ; Hypertension I10 and Diabetes mellitus E11.9 [place] [id number] [facility] [id number] [address] [place] [address] Dec, [place] [address] [place] [id number] [place] [address] Dec, CAD (coronary artery disease ) I25.10 ; Hypertension I10 ; Left leg claudication I73.9 and Hyperlipidemia E78.5 [facility] [address] [facility] [id number] [address] [place] [address] Nov, Onychomycosis B35.1 and Vin ertoe M20.40 [facility] [address] [id number] [address] [place] [address] Sep, Coronary atherosclerosis of unspecified type of vessel, teller or graft 414.00 [facility] [address] [id number] [address] [place] [address] Sep, Coronary atherosclerosis of unspecified type of vessel, teller or graft 414.00 and Diabetes 250.00 [facility] [address] [id number] [address] [place] [address] May, [facility] [address] [id number] [address] [place] [address] May, [facility] [address] [id number] [address] [place] [address] Apr, [facility] [address] [id number] [address] [place] [address] Apr, [facility] [address] [id number] [address] [place] [address] Apr, [facility] [address] [id number] [address] [place] [address] Apr, [facility] [address] [id number] [address] [place] [address] Mar, [facility] [address] [id number] [address] [place] [address] Mar, [facility] [address] [id number] [address] [place] [address] Jan, [facility] [address] [id number] [address] [place] [address] Jan, [facility] [address] [id number] [address] [place] [address] Jan, [facility] [address] [id number] [address] [place] [address] Jan, [facility] [address] [id number] [address] [place] [address], [place] [address] Jan, [facility] [address] [id number] [address] [place] [address], [place] [address] Jan, [facility] [address] [id number] [address] [place] [address], [place] [address] Jan, [facility] [address] [id number] [address] [place] [address], [place] [address] Jan, [facility] [address] [id number] [address] [place] [address], [place] [address] Jan, [facility] [address] [id number] [address] [place] [address], [place] [address] Jan, [facility] [address] [id number] [address] [place] [address], [place] [address] Jan, [facility] [address] [id number] [address] [place] [address], [place] [address] Nov, [facility] [address] [id number] [address] [place] [address], [place] [address] Nov, [facility] [address] [id number] [address] [place] [address], [place] [address] Nov, [facility] [address] [id number] [address] [place] [address], [place] [address] Nov, [facility] [address] [id number] [address] [place] [address], [place] [address] Nov, [facility] [address] [id number] [address] [place] [address], [place] [address] Nov, [facility] [address] [id number] [address] [place] [address], [place] [address] Oct, [facility] [address] [id number] [address] [place] [address], [place] [address] Oct, [facility] [address] [id number] [address] [place] [address], [place] [address] Oct, [facility] [address] [id number] [facility] [place] [address] Oct, [facility] [address] [id number] [address] [place] [address], [place] [address] Oct, [facility] [address] [id number] [address] [place] [address], [place] [address] Oct, [facility] [address] [id number] [address] [place] [address], [place] [address] Sep, [facility] [address] [id number] [address] [place] [address], [place] [address] Sep, [facility] [address] [id number] [address] [place] [address], [place] [address] Sep, [facility] [address] [id number] [address] [place] [address], [place] [address] Sep, [facility] [address] [id number] [address] [place] [address], [place] [address] Sep, [facility] [address] [id number] [address] [place] [address], [place] [address] Sep, [facility] [address] [id number] [address] [place] [address], [place] [address] Aug, [facility] [address] [id number] [address] [place] [address], [place] [address] Aug, [facility] [address] [id number] [address] [place] [address], [place] [address] Aug, [facility] [address] [id number] [address] [place] [address], [place] [address] Aug, [facility] [address] [id number] [address] [place] [address], [place] [address] Aug, [facility] [address] [id number] [address] [place] [address], [place] [address] Aug, [facility] [address] [id number] [address] [place] [address], [place] [address] Jul, [facility] [address] [id number] [address] [place] [address], [place] [address] Jul, [facility] [address] [id number] [address] [place] [address], [place] [address] Jul, [facility] [address] [id number] [address] [place] [address], [place] [address] Jul, [facility] [address] [id number] [address] [place] [address], [place] [address] June, [facility] [address] [id number] [address] [place] [address], [place] [address] June, [facility] [address] [id number] [address] [place] [address], [place] [address] June, [facility] [address] [id number] [address] [place] [address], [place] [address] June, [facility] [address] [id number] [address] [place] [address], [place] [address] May, [facility] [address] [id number] [address] [place] [address], [place] [address] May, [facility] [address] [id number] [address] [place] [address], [place] [address] May, [facility] [address] [id number] [address] [place] [address], [place] [address] May, [facility] [address] [id number] [address] [place] [address], [place] [address] May, [facility] [address] [id number] [address] [place] [address], [place] [address] May, [facility] [address] [id number] [address] [place] [address], [place] [address] Apr, [facility] [address] [id number] [address] [place] [address], [place] [address] Apr, [facility] [address] [id number] [address] [place] [address], [place] [address] Apr, [facility] [address] [id number] [address] [place] [address], [place] [address] Apr, 2013 [facility] [address] [id number] [address] [place] [address], [place] [address] Apr, 2013 [facility] [address] [id number] [address] [place] [address], [place] [address] Apr, 2013 [facility] [address] [id number] [address] [place] [address], [place] [address] Apr, 2013 [facility] [address] [id number] [address] [place] [address], [place] [address] Jan, [facility] [address] [id number] [address] [place] [address], [place] [address] Jan, [facility] [address] [id number] [address] [place] [address], [place] [address] Jan, [facility] [address] [id number] [address] [place] [address], [place] [address] Jan, [facility] [address] [id number] [address] [place] [address], [place] [address] Jan, [facility] [address] [id number] [address] [place] [address] Jan, [facility] [address] [id number] [address] [place] [address] Dec, [facility] [address] [id number] [address] [place] [address], [place] [address] Dec, [facility] [address] [id number] [address] [place] [address], [place] [address] Dec, [facility] [address] [id number] [address] [place] [address] Dec, [facility] [address] [id number] [address] [place] [address] 05 Dec, 2012 [facility] [address] [id number] [address] [place] [address], [place] [address] Dec, [facility] [address] [id number] [address] [place] [id number] Nov, [facility] [address] [id number] [address] [place] [address], [place] [address] Oct, [facility] [address] [id number] [address] [place] [id number] Oct, [facility] [address] [id number] [address] [place] [address], [place] [address] Aug, [facility] [address] [id number] [address] [place] [id number] Aug, [facility] [address] [id number] [address] [place] [id number] Jul, [facility] [address] [id number] [address] [place] [id number] June, [facility] [address] [id number] [address] [place] [id number] Apr, [facility] [address] [id number] [address] [place] [id number] Apr, [facility] [address] [id number] [address] [place] [address], [place] [address] Apr, [facility] [address] [id number] [address] [place] [id number] Apr, [facility] [address] [id number] [address] [place] [id number] Mar, [facility] [address] [id number] [address] [place] [id number] Jan, [facility] [address] [id number] [address] [place] [id number] Jan, [facility] [address] [id number] [address] [place] [address], [place] [address] 13 Jan, 2012 [facility] [address] [id number] [address] [place] [address], [place] [address] 13 Jan, 2012 [facility] [address] [id number] [address] [place] [address], [place] [address] 12 Jan, 2012 [facility] [address] [id number] [address] [place] [address], [place] [address] 12 Jan, 2012 [facility] [address] [id number] [address] [place] [address], [place] [id number] 12 Jan, 2012 [facility] [address] [id number] [address] [place] [address], [place] [address] Jan, [facility] [address] [id number] [address] [place] [address], [place] [address] 16 Dec, 2011 [facility] [address] [id number] [address] [place] [address], [place] [address] 16 Dec, 2011 [facility] [address] [id number] [address] [place] [address], [place] [address] 16 Dec, 2011 [facility] [address] [id number] [address] [place] [address], [place] [address] 16 Dec, 2011 [facility] [address] [id number] [address] [place] [address], [place] [address] 17 Nov, 2011 [facility] [address] [id number] [address] [place] [address], [place] [address] 24 Oct, 2011 [facility] [address] [id number] [address] [place] [address], [place] [id number] 14 Aug, 2011 [facility] [address] [id number] [address] [place] [address], [place] [id number] 14 Aug, 2011 [facility] [address] [id number] [address] [place] [address], [place] [id number] 14 Aug, 2011 [facility] [address] [id number] [address] [place] [address], [place] [id number] 13 Aug, 2011 [facility] [address] [id number] [address] [place] [id number] Jul, [facility] [address] [id number] [address] [place] [phone] Apr, [facility] [address] [id number] [address] [place] [id number] Apr, [facility] [address] [id number] [address] [place] [id number] Apr, [facility] [address] [id number] [address] [place] [id number] Mar, [facility] [address] [id number] [address] [place] [id number] Mar, [facility] [address] [facility] [id number] [address] [place] [id number] Dec, [facility] [address] [id number] [address] [place] [phone] Dec, [facility] [address] [facility] [id number] [address] [place] [phone] Dec, IMMUNIZATIONS No Known Immunizations SOCIAL HISTORY [...]
--- OUTSIDE RECORDS SUMMARY | 2019-06-21 16:32 | XMS REPORT ---
Author Author Nick ABDI Organization [facility] Address [address] [place] [address] Care Team Providers Care [place] Name Role Phone ELVIN ABDI Unavailable PROBLEMS Type Condition ICD9-CM Code [id number] Code Onset Dates Condition S tatus SNOMED Code Problem Hypertension I10 Active 0198831 3 Problem Left leg claudication I73.9 Active 952700803 Problem Hyperlipidemia E78.5 Active 90898 004 Problem CAD (coronary artery disease) I25.10 Active 40427317 Problem Impaired circulation I99.9 Active 93292271 Problem Diabetes mellitus E11.9 Active 73 255148 Problem Cigarette nicotine dependence with nicotine-induced di sorder F17.219 Active 80731967 Problem DM neuro manif type II E11.49 Active 51843486 Problem Arthritis M19.90 Active 8984523 Problem Hypoglycemia E16.2 Active 1408952 03 Problem 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 Active 83219 005 Problem Tobacco abuse Z72.0 Active 867027 05 Problem Hammertoe M20.40 Active 513367132 Problem Essential (primary) hypertension I10 Active 81632305 Problem Reactive depression F32.9 Active 96540901 Problem Carotid artery disease I77.9 Active 545443799 Problem Hypercholesteremia E78.00 Active 2 99571266 Problem Type 2 diabetes mellitus E11.9 Activ e 64724966 Problem PAD (peripheral artery disease) I73.9 Active 052739759 ALLERGIES No Information ENCOUNTERS Encounter Location Date Diagnosis [facility] [address] [place] [address] Jul, [facility] [address] [facility] [id number] [address] [place] [address] Jul, [facility] [address] [facility] [id number] [address] [place] [address] June, Diabetes mellitus E11.9 [facility] [address] [address] May, [address] [address] Apr, Type 2 diabetes mellitus E11.9 ; [...] M20.40 ; Arthritis M19.90 and Hypoglycemia E16.2 [place] [address] [place] [address] Apr, Diabetes mellitus E11.9 [place] [address] [place] [address] Apr, Onychomycosis B35.1 ; Impair ed circulation I99.9 and DM neuro manif type II E11.49 [place] [address] [place] [id number] [address] [place] [address] Jan, Diabetes mellitus E11.9 ; Hy pertension I10 and Encounter for immunization Z23 [place] [address] [place] [id number] [address] [place] [address] Jan, Diabetes mellitus E11.9 [place] [address] [facility] [id number] [address] [place] [address] Jan, [place] [address] [place] [address] Jan, [place] [address] [place] [id number] [address] [place] [address] Oct, Onychomycosis B35.1 ; DM chuck ro manif type II E11.49 and Impaired circulation I99.9 [place] [address] [facility] [id number] [address] [place] [address] Sep, [facility] [address] [facility] [id number] [address] [place] [address] Aug, Hypoglycemia E16.2 [facility] [address] [facility] [id number] [address] [place] [address] Aug, [facility] [address] [facility] [id number] [address] [place] [address] Jul, [facility] [address] [facility] [id number] [address] [place] [address] Jul, Elevated blood sugar R73.9 a nd Neck pain M54.2 [facility] [address] [facility] [id number] [address] [place] [address] Jul, [facility] [address] [place] [id number] [place] [address] Jul, Onychomycosis B35.1 and DM n euro manif type II E11.49 [facility] [address] [facility] [id number] [address] [place] [address] Jul, [facility] [address] [facility] [id number] [address] [place] [address] June, Hyperlipidemia E78.5 [facility] [address] [facility] [id number] [address] [place] [address] June, Diabetes mellitus E11.9 ; CA D (coronary artery disease) I25.10 ; Arthritis M19.90 and Hyperlipidemia E78.5 [facility] [address] [facility] [id number] [address] [place] [address] June, [facility] [address] [facility] [id number] [address] [place] [address] Apr, Onychomycosis B35.1 ; DM chuck ro manif type II E11.49 and Hammertoe M20.40 [facility] [address] [facility] [id number] [address] [place] [address] Apr, Diabetes mellitus E11.9 and Hypertension I10 [place] [address] [address] Mar, Hypertension I10 and Diabete s mellitus E11.9 [place] [address] [place] [id number] [address] [place] [address] Mar, Hypertension I10 and Diabete s mellitus E11.9 [place] [address] [address] Jan, Onychomycosis B35.1 and DM n euro manif type II E11.49 [place] [address] [address] Dec, [place] [address] [address] Dec, [place] [address] [address] Dec, Hypertension I10 and Diabete s mellitus E11.9 [place] [address] [address] Oct, Encounter for immunization Z 23 ; Diabetes mellitus E11.9 ; Hypertension I10 and Cigarette nicotine dependence with nicotine-induced disorder F17.219 [place] [address] [address] Oct, Diabetes mellitus E11.9 [place] [address] [address] Oct, Onychomycosis B35.1 ; DM chuck ro manif type II E11.49 and Hammertoe M20.40 [place] [address] [place] [id number] [place] [address] Jul, Diabetes mellitus E11.9 [place] [address] [place] [id number] [address] [place] [address] Jul, Onychomycosis B35.1 ; Hammer toe M20.40 and DM neuro manif type II E11.49 [place] [address] [id number] [address] [place] [address] May, Diabetes mellitus E11.9 [place] [address] [id number] [address] [place] [address] May, Diabetes mellitus E11.9 [place] [address] [id number] [address] [place] [address] Nov, Diabetes mellitus E11.9 ; Hy pertension I10 ; Reactive depression F32.9 and Encounter for immunization Z23 [place] [address] [id number] [address] [place] [address] Oct, Ulcer of other part of foot L97.509 [place] [address] [id number] [address] [place] [address] Sep, Onychomycosis B35.1 ; Ulcer of heel, left, with unspecified severity L97.429 and DM neuro manif type II E11.49 [place] [address] [id number] [address] [place] [address] Sep, [place] [address] [id number] [address] [place] [address] Sep, Ulcer of heel, left, with un specified severity L97.429 [place] [address] [id number] [address] [place] [address] Aug, Onychomycosis B35.1 ; Ulcer of heel, left, with unspecified severity L97.429 and DM neuro manif type II E11.49 [place] [address] [id number] [address] [place] [address] Jul, Diabetes mellitus E11.9 ; Hy pertension I10 ; Cigarette nicotine dependence with nicotine-induced disorder F17.219 and CAD (coronary artery disease) I25.10 [place] [address] [facility] [id number] [address] [place] [address] Jul, Left leg claudication I73.9 ; Right leg claudication I73.9 ; CAD (coronary artery disease) I25.10 ; Hypertension I10 and Hyperlipidemia E78.5 [place] [address] [id number] [address] [place] [address] Jul, Ulcer of heel, left, with un specified severity L97.429 and DM neuro manif type II E11.49 [facility] [address] [id number] [address] [place] [address] June, Ulcer of heel, left, with un specified severity L97.429 and Ulcer of other part of foot L97.509 [place] [address] [id number] [address] [place] [address] June, Ulcer of heel, left, with un specified severity L97.429 and Ulcer of foot, left, with unspecified severity L97.529 [place] [address] [facility] [id number] [address] [place] [address] May, [place] [address] [id number] [address] [place] [address] May, [facility] [address] [id number] [address] [place] [address] Apr, DM neuro manif type II E11.4 9 ; Hypertension I10 and Sleep apnea in adult G47.33 [facility] [address] [facility] [id number] [address] [place] [address] Apr, [place] [address] [id number] [address] [place] [address] Apr, Ulcer of foot L97.509 and DM neuro manif type II E11.49 [facility] [address] [id number] [address] [place] [address] Apr, Ulcer of other part of foot L97.509 and DM neuro manif type II E11.49 [place] [address] [id number] [address] [place] [address] Apr, Onychomycosis B35.1 ; Ingrow n toenail L60.0 ; Impaired circulation I99.9 and DM neuro manif type II E11.49 [place] [address] [facility] [id number] [address] [place] [address] 08 Mar, 2015 Ulcer of other part of foot L97.509 ; Onychomycosis B35.1 and Diabetes mellitus E11.9 [place] [address] [place] [id number] [address] [place] [address] Dec, Encounter for immunization Z 23 ; Hypertension I10 and Diabetes mellitus E11.9 [place] [address] [place] [id number] [place] [address] Dec, [address] [address] Dec, CAD (coronary artery disease ) I25.10 ; Hypertension I10 ; Left leg claudication I73.9 and Hyperlipidemia E78.5 [place] [address] [place] [id number] [address] [place] [address] Nov, Onychomycosis B35.1 and Vin ertoe M20.40 [place] [address] [facility] [id number] [address] [place] [address] Sep, Coronary atherosclerosis of unspecified type of vessel, rosebud or graft 414.00 [place] [address] [place] [id number] [address] [place] [address] Sep, Coronary atherosclerosis of unspecified type of vessel, rosebud or graft 414.00 and Diabetes 250.00 [place] [address] [facility] [id number] [address] [place] [address] May, [place] [address] [place] [id number] [address] [place] [address] May, [place] [address] [place] [id number] [address] [place] [address] Apr, [place] [address] [place] [id number] [address] [place] [address] Apr, [place] [address] [place] [address] Apr, [facility] [address] [id number] [address] [place] [address], [place] [address] Apr, [facility] [address] [id number] [address] [place] [address], [place] [address] Mar, [facility] [address] [id number] [address] [place] [address], [place] [address] Mar, [facility] [address] [id number] [address] [place] [address], [place] [address] Jan, [facility] [address] [id number] [address] [place] [address], [place] [address] Jan, [facility] [address] [id number] [address] [place] [address], [place] [address] Jan, [facility] [address] [id number] [address] [place] [address], [place] [address] Jan, [facility] [address] [id number] [address] [place] [address], [place] [address] Jan, [facility] [address] [id number] [address] [place] [address], [place] [address] Jan, [facility] [address] [id number] [address] [place] [address], [place] [address] Jan, [facility] [address] [id number] [address] [place] [address], [place] [address] Jan, [facility] [address] [id number] [address] [place] [address], [place] [address] Jan, [facility] [address] [id number] [address] [place] [address], [place] [address] Jan, [facility] [address] [id number] [address] [place] [address], [place] [address] Jan, [facility] [address] [id number] [address] [place] [address], [place] [address] Nov, [facility] [address] [id number] [address] [place] [address], [place] [address] Nov, [facility] [place] [facility] [address] [id number] [address] [place] [address], [place] [address] Nov, [facility] [address] [id number] [address] [place] [address], [place] [address] Nov, [facility] [place] [facility] [address] [id number] [address] [place] [address], [place] [address] 15 Nov, 2013 [facility] [address] [id number] [address] [place] [address], [place] [address] 15 Nov, 2013 [facility] [address] [id number] [address] [place] [address], [place] [address] 19 Oct, 2013 [facility] [address] [id number] [address] [place] [address], [place] [address] 19 Oct, 2013 [facility] [address] [id number] [address] [place] [address], [place] [address] 19 Oct, 2013 [facility] [address] [id number] [address] [place] [address], [place] [address] 19 Oct, 2013 [facility] [address] [id number] [address] [place] [address], [place] [address] 05 Oct, 2013 [facility] [address] [id number] [address] [place] [address], [place] [address] 05 Oct, 2013 [facility] [place] [facility] [address] [id number] [address] [place] [address], [place] [address] Sep, [facility] [place] [facility] [address] [id number] [address] [place] [address], [place] [address] Sep, [facility] [place] [facility] [address] [id number] [address] [place] [address], [place] [address] Sep, [facility] [place] [facility] [address] [id number] [address] [place] [address], [place] [address] Sep, [facility] [place] [facility] [address] [id number] [address] [place] [address], [place] [address] Sep, [facility] [address] [id number] [address] [place] [address], [place] [address] Sep, [facility] [place] [facility] [address] [id number] [address] [place] [address], [place] [address] Aug, [facility] [address] [id number] [address] [place] [address], [place] [address] Aug, [facility] [place] [facility] [address] [id number] [address] [place] [address], [place] [address] Aug, [facility] [address] [id number] [address] [place] [address], [place] [address] Aug, [facility] [address] [id number] [address] [place] [address], [place] [address] Aug, [facility] [address] [id number] [address] [place] [address], [place] [address] Aug, [facility] [address] [id number] [address] [place] [address], [place] [address] Jul, [facility] [address] [id number] [address] [place] [address], [place] [address] Jul, [facility] [address] [id number] [address] [place] [address], [place] [address] Jul, [facility] [address] [id number] [address] [place] [address], [place] [address] Jul, [facility] [place] [facility] [address] [id number] [address] [place] [address], [place] [address] June, [facility] [place] [facility] [address] [id number] [address] [place] [address], [place] [address] June, [facility] [place] [facility] [address] [id number] [address] [place] [address], [place] [address] June, [facility] [place] [facility] [address] [id number] [address] [place] [address], [place] [address] June, [facility] [place] [facility] [address] [id number] [address] [place] [address], [place] [address] May, [facility] [address] [id number] [address] [place] [address], [place] [address] May, [facility] [address] [id number] [address] [place] [address], [place] [address] May, [facility] [address] [id number] [address] [place] [address], [place] [address] May, [facility] [address] [id number] [address] [place] [address], [place] [address] May, [facility] [address] [id number] [address] [place] [address], [place] [address] May, [facility] [address] [id number] [address] [place] [address], [place] [address] Apr, [facility] [address] [id number] [address] [place] [address], [place] [address] Apr, [facility] [address] [id number] [address] [place] [address], [place] [address] Apr, [facility] [address] [id number] [address] [place] [address], [place] [address] Apr, [facility] [address] [id number] [address] [place] [address], [place] [address] Apr, [facility] [address] [id number] [address] [place] [address], [place] [address] Apr, [facility] [address] [id number] [address] [place] [address], [place] [address] Apr, [facility] [address] [id number] [address] [place] [address], [place] [address] Jan, [facility] [address] [id number] [address] [place] [address], [place] [address] Jan, [facility] [address] [id number] [address] [place] [address], [place] [address] Jan, [facility] [address] [id number] [address] [place] [address], [place] [address] Jan, [facility] [address] [id number] [address] [place] [address], [place] [address] Jan, [facility] [address] [id number] [address] [place] [address], [place] [address] Jan, [facility] [address] [id number] [address] [place] [address] Dec, [facility] [address] [id number] [address] [place] [address], [place] [address] Dec, [facility] [address] [id number] [address] [place] [address] Dec, [facility] [address] [id number] [address] [place] [address], [place] [address] Dec, [facility] [address] [id number] [address] [place] [address] Dec, [facility] [address] [id number] [address] [place] [address], [place] [address] Dec, [facility] [address] [id number] [address] [place] [address] Nov, [facility] [address] [id number] [address] [place] [address] Oct, [facility] [address] [id number] [address] [place] [address] Oct, [facility] [address] [id number] [address] [place] [address], [place] [address] Aug, [facility] [address] [id number] [address] [place] [id number] Aug, [facility] [address] [id number] [address] [place] [address], [place] [address] Jul, [facility] [address] [id number] [address] [place] [address], [place] [address] June, [facility] [address] [id number] [address] [place] [address], [place] [address] Apr, [facility] [address] [id number] [address] [place] [address], [place] [address] Apr, [facility] [address] [id number] [address] [place] [address], [place] [address] Apr, [facility] [address] [id number] [address] [place] [address], [place] [address] Apr, [facility] [address] [id number] [address] [place] [address], [place] [address] Mar, [facility] [address] [id number] [address] [place] [address], [place] [address] Jan, [facility] [address] [id number] [address] [place] [address], [place] [address] Jan, [facility] [address] [id number] [address] [place] [address], [place] [address] Jan, [facility] [address] [id number] [address] [place] [address], [place] [address] Jan, [facility] [address] [id number] [address] [place] [address], [place] [address] Jan, [facility] [address] [id number] [address] [place] [address], [place] [address] Jan, [facility] [address] [id number] [address] [place] [address], [place] [address] Jan, [facility] [address] [id number] [address] [place] [address], [place] [address] Jan, [facility] [address] [id number] [address] [place] [address], [place] [address] Nov, [facility] [address] [id number] [address] [place] [address], [place] [address] Nov, [facility] [address] [id number] [address] [place] [address], [place] [address] 16 Dec, 2011 [facility] [address] [id number] [address] [place] [address], [place] [address] 16 Dec, 2011 [facility] [address] [id number] [address] [place] [address], [place] [address] 17 Nov, 2011 [facility] [address] [id number] [address] [place] [address], [place] [address] 24 Oct, 2011 [facility] [address] [id number] [address] [place] [address], [place] [address] 14 Aug, 2011 [facility] [address] [id number] [address] [place] [address], [place] [address] 14 Aug, 2011 [facility] [address] [id number] [address] [place] [address], [place] [address] 14 Aug, 2011 [facility] [address] [id number] [address] [place] [address], [place] [address] 13 Aug, 2011 [facility] [address] [id number] [address] [place] [address], [place] [address] 13 Aug, 2011 [facility] [address] [id number] [address] [place] [address], [place] [address] 20 May, 2011 [facility] [address] [id number] [address] [place] [address], [place] [address] 16 Apr, 2011 [facility] [address] [id number] [address] [place] [address], [place] [address] 16 Apr, 2011 [facility] [address] [id number] [address] [place] [address], [place] [address] Mar, [facility] [address] [id number] [address] [place] [id number], [place] [id number] Mar, [facility] [address] [id number] [address] [place] [id number], [place] [id number] 08 Dec, 2010 [facility] [address] [id number] [place] [id number] Dec, [facility] [address] [facility] [id number] [address] [place] [id number] Dec, IMMUNIZATIONS No Known Immunizations SOCIAL HISTORY Never Assessed REASON FOR VISIT refill PLAN OF CARE VITAL SIGNS MEDICATIONS Medication Instructions Dosage Frequency Start Date End Date Duration S tatus Gabapentin 300 MG Orally Three times a day 1 capsule 8h 30 Active Simvastatin 20 mg Orally Once a day 1 tablet in the evening 24h 90 days Active RESULTS No Results PROCEDURES No Known procedures [...]
--- OUTSIDE RECORDS SUMMARY | 2019-06-21 16:33 | XMS REPORT ---
Author Author Nick ABDI Organization [facility] Address [address] [place] [address] Care Team Providers Care Clinical Pharmacist Name Role Phone ELVIN ABDI Unavailable PROBLEMS Type Condition ICD9-CM Code [id number] Code Onset Dates Condition S tatus SNOMED Code Problem Hyperlipidemia E78.5 Active 38140 004 Problem DM neuro manif type II E11.49 Active 89493539 Problem Diabetes mellitus E11.9 Active 73 359156 Problem Left leg claudication I73.9 Active 310123216 Problem CAD (coronary artery disease) I25.10 Active 50267810 Problem Hypertension I10 Active 6481985 3 Problem Hypoglycemia E16.2 Active 5227441 03 Problem Arthritis M19.90 Active 8892331 Problem Cigarette nicotine dependence with nicotine-induced di sorder F17.219 Active 10660959 Problem Impaired circulation I99.9 Active 10818212 Problem Hammertoe M20.40 Active 124335065 Problem Reactive depression F32.9 Active 16460998 ALLERGIES No Information ENCOUNTERS Encounter Location Date Diagnosis [facility] [address] [facility] [id number] [address] [place] [phone] Mar, [facility] [address] [facility] [id number] [address] [place] [phone] Jan, [facility] [address] [facility] [id number] [address] [place] [phone] Jan, [facility] [address] [facility] [id number] [address] [place] [phone] Jan, Diabetes mellitus E11.9 [facility] [address] [facility] [id number] [address] [place] [phone] Jan, [facility] [address] [facility] [id number] [address] [place] [phone] Jan, [facility] [address] [facility] [id number] [address] [place] [phone] Oct, Onychomycosis B35.1 ; DM chuck ro manif type II E11.49 and Impaired circulation I99.9 [facility] [address] [id number] [address] [place] [phone] Sep, [facility] [address] [facility] [id number] [address] [place] [phone] Aug, Hypoglycemia E16.2 [facility] [address] [facility] [id number] [address] [place] [phone] Aug, [facility] [address] [facility] [id number] [address] [place] [phone] Jul, [facility] [address] [facility] [id number] [address] [place] [phone] Jul, Elevated blood sugar R73.9 a nd Neck pain M54.2 [facility] [address] [id number] [address] [place] [phone] Jul, [facility] [address] [facility] [id number] [address] [place] [phone] Jul, Onychomycosis B35.1 and DM n euro manif type II E11.49 [facility] [address] [facility] [id number] [address] [place] [phone] Jul, [facility] [address] [facility] [id number] [address] [place] [phone] June, Hyperlipidemia E78.5 [facility] [address] [facility] [id number] [address] [place] [phone] June, Diabetes mellitus E11.9 ; CA D (coronary artery disease) I25.10 ; Arthritis M19.90 and Hyperlipidemia E78.5 [facility] [address] [facility] [id number] [address] [place] [phone] June, [facility] [address] [facility] [id number] [address] [place] [phone] Apr, Onychomycosis B35.1 ; DM chuck ro manif type II E11.49 and Hammertoe M20.40 [place] [address] [place] [id number] [address] [place] [phone] Apr, Diabetes mellitus E11.9 and Hypertension I10 [place] [address] [place] [id number] [address] [place] [phone] Mar, Hypertension I10 and Diabete s mellitus E11.9 [place] [address] [facility] [id number] [address] [place] [phone] Mar, Hypertension I10 and Diabete s mellitus E11.9 [place] [address] [place] [id number] [address] [place] [phone] Jan, Onychomycosis B35.1 and DM n euro manif type II E11.49 [place] [address] [place] [id number] [address] [place] [phone] Dec, [place] [address] [place] [id number] [address] [place] [phone] Dec, [place] [address] [place] [id number] [place] [address] Dec, Hypertension I10 and Diabete s mellitus E11.9 [place] [address] [place] [id number] [address] [place] [phone] Oct, Encounter for immunization Z 23 ; Diabetes mellitus E11.9 ; Hypertension I10 and Cigarette nicotine dependence with nicotine-induced disorder F17.219 [place] [address] [place] [id number] [address] [place] [phone] Oct, Diabetes mellitus E11.9 [place] [address] [place] [id number] [address] [place] [phone] Oct, Onychomycosis B35.1 ; DM chuck ro manif type II E11.49 and Hammertoe M20.40 [place] [address] [place] [id number] [address] [place] [phone] Jul, Diabetes mellitus E11.9 [place] [address] [id number] [address] [place] [phone] Jul, Onychomycosis B35.1 ; Hammer toe M20.40 and DM neuro manif type II E11.49 [place] [address] [id number] [address] [place] [address] May, Diabetes mellitus E11.9 [place] [address] [id number] [address] [place] [phone] May, Diabetes mellitus E11.9 [place] [address] [id number] [address] [place] [phone] Nov, Diabetes mellitus E11.9 ; Hy pertension I10 ; Reactive depression F32.9 and Encounter for immunization Z23 [place] [address] [id number] [address] [place] [phone] Oct, Ulcer of other part of foot L97.509 [place] [address] [id number] [address] [place] [phone] Sep, Onychomycosis B35.1 ; Ulcer of heel, left, with unspecified severity L97.429 and DM neuro manif type II E11.49 [place] [address] [id number] [address] [place] [phone] Sep, [place] [address] [id number] [address] [place] [phone] Sep, Ulcer of heel, left, with un specified severity L97.429 [place] [address] [id number] [address] [place] [phone] Aug, Onychomycosis B35.1 ; Ulcer of heel, left, with unspecified severity L97.429 and DM neuro manif type II E11.49 [place] [address] [id number] [address] [place] [address] Jul, Diabetes mellitus E11.9 ; Hy pertension I10 ; Cigarette nicotine dependence with nicotine-induced disorder F17.219 and CAD (coronary artery disease) I25.10 [facility] [address] [id number] [address] [place] [phone] Jul, Left leg claudication I73.9 ; Right leg claudication I73.9 ; CAD (coronary artery disease) I25.10 ; Hypertension I10 and Hyperlipidemia E78.5 [facility] [address] [id number] [address] [place] [id number] Jul, Ulcer of heel, left, with un specified severity L97.429 and DM neuro manif type II E11.49 [facility] [address] [id number] [address] [place] [phone] June, Ulcer of heel, left, with un specified severity L97.429 and Ulcer of other part of foot L97.509 [place] [address] [facility] [id number] [address] [place] [phone] June, Ulcer of heel, left, with un specified severity L97.429 and Ulcer of foot, left, with unspecified severity L97.529 [place] [address] [facility] [id number] [address] [place] [phone] May, [facility] [address] [id number] [address] [place] [phone] May, [facility] [address] [id number] [address] [place] [phone] Apr, DM neuro manif type II E11.4 9 ; Hypertension I10 and Sleep apnea in adult G47.33 [facility] [address] [id number] [address] [place] [phone] Apr, [facility] [address] [id number] [address] [place] [phone] Apr, Ulcer of foot L97.509 and DM neuro manif type II E11.49 [facility] [address] [id number] [address] [place] [phone] Apr, Ulcer of other part of foot L97.509 and DM neuro manif type II E11.49 [facility] [address] [facility] [id number] [address] [place] [phone] 12 Apr, 2015 Onychomycosis B35.1 ; Ingrow n toenail L60.0 ; Impaired circulation I99.9 and DM neuro manif type II E11.49 [place] [address] [facility] [id number] [address] [place] [phone] 08 Mar, 2015 Ulcer of other part of foot L97.509 ; Onychomycosis B35.1 and Diabetes mellitus E11.9 [place] [address] [facility] [id number] [address] [place] [phone] Dec, Encounter for immunization Z 23 ; Hypertension I10 and Diabetes mellitus E11.9 [place] [id number] [address] [place] [phone] Dec, [place] [id number] [place] [address] Dec, CAD (coronary artery disease ) I25.10 ; Hypertension I10 ; Left leg claudication I73.9 and Hyperlipidemia E78.5 [place] [id number] [place] [address] Nov, Onychomycosis B35.1 and Vin ertoe M20.40 [place] [id number] [address] [place] [phone] Sep, Coronary atherosclerosis of unspecified type of vessel, minto or graft 414.[address] [place] [address] [facility] [id number] [address] [place] [phone] Sep, Coronary atherosclerosis of unspecified type of vessel, minto or graft 414.00 and Diabetes 250.[address] [place] [address] [facility] [id number] [address] [place] [id number] 14 May, 2014 [place] [address] [place] [id number] [address] [place] [phone] May, [place] [address] [place] [id number] [address] [place] [address], [place] [address] Apr, [facility] [address] [id number] [address] [place] [address], [place] [address] Apr, [facility] [address] [id number] [address] [place] [address], [place] [address] Apr, [facility] [address] [id number] [address] [place] [address], [place] [address] Apr, [facility] [address] [id number] [address] [place] [address], [place] [address] Mar, [facility] [address] [id number] [address] [place] [address], [place] [address] Mar, [facility] [address] [id number] [address] [place] [address], [place] [address] Jan, [facility] [address] [id number] [address] [place] [address], [place] [address] Jan, [facility] [address] [id number] [address] [place] [address], [place] [address] Jan, [facility] [address] [id number] [address] [place] [address], [place] [address] Jan, [facility] [address] [id number] [address] [place] [address], [place] [address] Jan, [facility] [address] [id number] [address] [place] [address], [place] [address] Jan, [facility] [address] [id number] [address] [place] [address], [place] [address] Jan, [facility] [address] [id number] [address] [place] [address], [place] [address] Jan, [facility] [address] [id number] [address] [place] [address], [place] [address] Jan, [facility] [address] [id number] [address] [place] [address], [place] [address] Jan, [facility] [address] [id number] [address] [place] [address], [place] [address] Jan, [facility] [address] [id number] [address] [place] [address], [place] [address] Nov, [facility] [address] [id number] [address] [place] [address], [place] [address] Nov, [facility] [address] [id number] [address] [place] [address], [place] [address] Nov, [facility] [address] [id number] [address] [place] [address], [place] [address] Nov, [facility] [address] [id number] [address] [place] [address], [place] [address] Nov, [facility] [address] [id number] [address] [place] [address], [place] [address] Nov, [facility] [address] [id number] [address] [place] [address], [place] [address] Oct, [facility] [address] [id number] [address] [place] [address], [place] [address] Oct, [facility] [address] [id number] [address] [place] [address], [place] [address] Oct, [facility] [address] [id number] [address] [place] [address], [place] [address] Oct, [facility] [address] [id number] [address] [place] [address], [place] [address] Oct, [facility] [address] [id number] [address] [place] [address], [place] [address] Oct, [facility] [address] [id number] [address] [place] [address], [place] [address] Sep, [facility] [address] [id number] [address] [place] [phone] Sep, [facility] [address] [id number] [address] [place] [phone] Sep, [facility] [address] [id number] [address] [place] [address], [place] [address] Sep, [facility] [address] [id number] [address] [place] [address], [place] [address] Sep, [facility] [address] [id number] [address] [place] [address], [place] [address] Sep, [facility] [address] [id number] [address] [place] [address], [place] [address] Aug, [facility] [address] [id number] [address] [place] [address], [place] [address] Aug, [facility] [address] [id number] [address] [place] [address], [place] [address] Aug, [facility] [address] [id number] [address] [place] [address], [place] [address] Aug, [facility] [address] [id number] [address] [place] [address], [place] [address] Aug, [facility] [address] [id number] [address] [place] [address], [place] [address] Aug, [facility] [address] [id number] [address] [place] [address], [place] [address] Jul, [facility] [address] [id number] [address] [place] [address], [place] [address] Jul, [facility] [address] [id number] [address] [place] [address], [place] [address] Jul, [facility] [address] [id number] [address] [place] [address], [place] [address] Jul, [facility] [address] [id number] [address] [place] [address], [place] [address] June, [facility] [address] [id number] [address] [place] [address], [place] [address] June, [facility] [address] [id number] [address] [place] [address], [place] [address] June, [facility] [address] [id number] [address] [place] [address], [place] [address] June, [facility] [address] [id number] [address] [place] [address], [place] [address] May, [facility] [address] [id number] [address] [place] [address], [place] [address] May, [facility] [address] [id number] [address] [place] [address], [place] [address] May, [facility] [address] [id number] [address] [place] [address], [place] [address] May, [facility] [address] [id number] [address] [place] [address], [place] [address] May, [facility] [address] [id number] [address] [place] [address], [place] [address] May, [facility] [address] [id number] [address] [place] [address], [place] [address] Apr, [facility] [address] [id number] [address] [place] [address], [place] [address] Apr, [facility] [address] [id number] [address] [place] [address], [place] [address] Apr, [facility] [address] [id number] [address] [place] [address], [place] [address] Apr, [facility] [address] [id number] [address] [place] [address], [place] [address] Apr, [facility] [address] [id number] [address] [place] [address], [place] [address] Apr, [facility] [address] [id number] [address] [place] [address], [place] [address] Apr, [facility] [address] [id number] [address] [place] [address], [place] [address] Jan, [facility] [address] [id number] [address] [place] [address], [place] [address] Jan, [facility] [address] [id number] [address] [place] [address], [place] [address] Jan, [facility] [address] [id number] [address] [place] [address], [place] [address] Jan, [facility] [address] [id number] [address] [place] [address], [place] [address] Jan, [facility] [address] [id number] [address] [place] [address], [place] [address] Jan, [facility] [address] [id number] [address] [place] [address] Dec, [facility] [address] [id number] [address] [place] [address], [place] [address] Dec, [facility] [address] [id number] [address] [place] [address] Dec, [facility] [address] [id number] [address] [place] [address], [place] [address] Dec, [facility] [address] [id number] [address] [place] [address] Dec, [facility] [address] [id number] [address] [place] [address] Dec, [facility] [address] [id number] [address] [place] [address] Nov, [facility] [address] [id number] [address] [place] [address], [place] [address] Oct, [facility] [address] [id number] [address] [place] [address] Oct, [facility] [address] [id number] [address] [place] [address] Aug, [facility] [address] [id number] [address] [place] [address], [place] [address] Aug, [facility] [address] [id number] [address] [place] [address], [place] [address] Jul, [facility] [address] [id number] [address] [place] [address], [place] [address] June, [facility] [address] [id number] [address] [place] [address], [place] [address] Apr, [facility] [address] [id number] [address] [place] [address], [place] [address] Apr, [facility] [address] [id number] [address] [place] [address], [place] [address] Apr, [facility] [address] [id number] [address] [place] [address], [place] [address] Apr, [facility] [address] [id number] [address] [place] [address], [place] [address] Mar, [facility] [address] [id number] [address] [place] [address], [place] [address] Jan, [facility] [address] [id number] [address] [place] [address], [place] [address] Jan, [facility] [address] [id number] [address] [place] [address], [place] [address] Jan, [facility] [address] [id number] [address] [place] [address], [place] [address] Jan, [facility] [address] [id number] [address] [place] [address], [place] [address] Jan, [facility] [address] [id number] [address] [place] [address], [place] [address] Jan, [facility] [address] [id number] [address] [place] [address], [place] [address] Jan, [facility] [address] [id number] [address] [place] [address], [place] [address] Jan, [facility] [address] [id number] [address] [place] [address], [place] [address] 16 Dec, 2011 [facility] [address] [id number] [address] [place] [address], [place] [address] 16 Dec, 2011 [facility] [address] [id number] [address] [place] [address], [place] [address] 16 Dec, 2011 [facility] [address] [id number] [address] [place] [address], [place] [address] 16 Dec, 2011 [facility] [address] [id number] [address] [place] [address], [place] [address] 17 Nov, 2011 [facility] [address] [id number] [address] [place] [address], [place] [address] 24 Oct, 2011 [facility] [address] [id number] [address] [place] [address], [place] [address] 14 Aug, 2011 [facility] [address] [id number] [address] [place] [address], [place] [address] 14 Aug, 2011 [facility] [address] [id number] [address] [place] [address], [place] [address] 14 Aug, 2011 [facility] [address] [id number] [address] [place] [address], [place] [address] 13 Aug, 2011 [facility] [address] [id number] [address] [place] [address], [place] [address] 13 Aug, 2011 [facility] [address] [id number] [address] [place] [address], [place] [address] 20 May, 2011 [facility] [address] [id number] [address] [place] [address], [place] [address] 16 Apr, 2011 [facility] [address] [id number] [address] [place] [address], [place] [address] 16 Apr, 2011 [facility] [address] [id number] [address] [place] [address], [place] [address] Mar, [facility] [address] [id number] [address] [place] [id number] Mar, [facility] [address] [facility] [id number] [address] [place] [id number] Dec, [facility] [address] [facility] [id number] [address] [place] [id number] Dec, [facility] [address] [facility] [id number] [address] [place] [id number] Dec, IMMUNIZATIONS No Known Immunizations SOCIAL HISTORY Never Assessed REASON FOR VISIT Requests return call PLAN OF CARE VITAL SIGNS MEDICATIONS Unknown [...]
--- OUTSIDE RECORDS SUMMARY | 2019-06-21 16:33 | XMS REPORT ---
Author Author Nick SEGAL Organization [facility] Address [address] [place] [address] Care Team Providers Care Geosciences Faculty Member Name Role Phone LUZMAMARINO Unavailable PROBLEMS Type Condition ICD9-CM Code [id number] Code Onset Dates Condition S tatus SNOMED Code Problem Hyperlipidemia E78.5 Active 68886 004 Problem DM neuro manif type II E11.49 Active 90586114 Problem Diabetes mellitus E11.9 Active 73 724423 Problem Left leg claudication I73.9 Active 849868375 Problem CAD (coronary artery disease) I25.10 Active 41614979 Problem Hypertension I10 Active 6992034 3 Problem Hypoglycemia E16.2 Active 5361025 03 Problem Arthritis M19.90 Active 0062351 Problem Cigarette nicotine dependence with nicotine-induced di sorder F17.219 Active 83088652 Problem Impaired circulation I99.9 Active 69197265 Problem Hammertoe M20.40 Active 015220180 Problem Reactive depression F32.9 Active 23590220 ALLERGIES No Information ENCOUNTERS Encounter Location Date Diagnosis [id number] [place] [id number] [place] [address] Jan, [place] [address] [place] [id number] [address] [place] [address] Jan, [facility] [address] [place] [id number] [address] [place] [address] Oct, Onychomycosis B35.1 ; DM chuck ro manif type II E11.49 and Impaired circulation I99.9 [place] [address] [place] [id number] [address] [place] [address] Sep, [place] [address] [place] [id number] [address] [place] [address] Aug, Hypoglycemia E16.2 [place] [address] [address] Aug, [place] [address] [address] Jul, [facility] [address] [address] Jul, Elevated blood sugar R73.9 a nd Neck pain M54.2 [place] [address] [address] Jul, [place] [address] [address] Jul, Onychomycosis B35.1 and DM n euro manif type II E11.49 [place] [address] [address] Jul, [place] [address] [address] June, Hyperlipidemia E78.5 [place] [address] [address] June, Diabetes mellitus E11.9 ; CA D (coronary artery disease) I25.10 ; Arthritis M19.90 and Hyperlipidemia E78.5 [place] [address] [place] [id number] [address] [place] [address] June, [place] [address] [address] Apr, Onychomycosis B35.1 ; DM chuck ro manif type II E11.49 and Hammertoe M20.40 [place] [address] [address] Apr, Diabetes mellitus E11.9 and Hypertension I10 [place] [address] [place] [id number] [address] [place] [address] Mar, Hypertension I10 and Diabete s mellitus E11.9 [place] [id number] [place] [address] Mar, Hypertension I10 and Diabete s mellitus E11.9 [place] [address] [facility] [id number] [address] [place] [address] Jan, Onychomycosis B35.1 and DM n euro manif type II E11.49 [place] [address] [facility] [id number] [address] [place] [address] Dec, [place] [address] [facility] [id number] [address] [place] [address] Dec, [place] [address] [facility] [id number] [place] [address] Dec, Hypertension I10 and Diabete s mellitus E11.9 [place] [address] [place] [id number] [address] [place] [address] Oct, Encounter for immunization Z 23 ; Diabetes mellitus E11.9 ; Hypertension I10 and Cigarette nicotine dependence with nicotine-induced disorder F17.219 [place] [id number] [place] [address] Oct, Diabetes mellitus E11.9 [place] [address] [place] [id number] [address] [place] [address] Oct, Onychomycosis B35.1 ; DM chuck ro manif type II E11.49 and Hammertoe M20.40 [place] [address] [facility] [id number] [address] [place] [address] Jul, Diabetes mellitus E11.9 [place] [address] [facility] [id number] [address] [place] [address] Jul, Onychomycosis B35.1 ; Hammer toe M20.40 and DM neuro manif type II E11.49 [place] [address] [facility] [id number] [address] [place] [address] May, Diabetes mellitus E11.9 [place] [address] [place] [id number] [address] [place] [address] May, Diabetes mellitus E11.9 [place] [address] [facility] [id number] [address] [place] [address] Nov, Diabetes mellitus E11.9 ; Hy pertension I10 ; Reactive depression F32.9 and Encounter for immunization Z23 [place] [address] [facility] [id number] [address] [place] [address] Oct, Ulcer of other part of foot L97.509 [place] [address] [facility] [id number] [address] [place] [address] Sep, Onychomycosis B35.1 ; Ulcer of heel, left, with unspecified severity L97.429 and DM neuro manif type II E11.49 [place] [address] [facility] [id number] [address] [place] [address] Sep, [place] [address] [facility] [id number] [address] [place] [address] Sep, Ulcer of heel, left, with un specified severity L97.429 [place] [address] [facility] [id number] [address] [place] [address] Aug, Onychomycosis B35.1 ; Ulcer of heel, left, with unspecified severity L97.429 and DM neuro manif type II E11.49 [place] [address] [facility] [id number] [address] [place] [address] Jul, Diabetes mellitus E11.9 ; Hy pertension I10 ; Cigarette nicotine dependence with nicotine-induced disorder F17.219 and CAD (coronary artery disease) I25.10 [place] [address] [facility] [id number] [address] [place] [address] Jul, Left leg claudication I73.9 ; Right leg claudication I73.9 ; CAD (coronary artery disease) I25.10 ; Hypertension I10 and Hyperlipidemia E78.5 [place] [address] [facility] [id number] [address] [place] [address] Jul, Ulcer of heel, left, with un specified severity L97.429 and DM neuro manif type II E11.49 [facility] [address] [id number] [address] [place] [address] June, Ulcer of heel, left, with un specified severity L97.429 and Ulcer of other part of foot L97.509 [facility] [address] [id number] [address] [place] [address] June, Ulcer of heel, left, with un specified severity L97.429 and Ulcer of foot, left, with unspecified severity L97.529 [facility] [address] [id number] [address] [place] [address] May, [facility] [address] [id number] [address] [place] [address] May, [facility] [address] [facility] [id number] [address] [place] [address] Apr, DM neuro manif type II E11.4 9 ; Hypertension I10 and Sleep apnea in adult G47.33 [facility] [address] [id number] [address] [place] [address] Apr, [facility] [address] [id number] [address] [place] [address] Apr, Ulcer of foot L97.509 and DM neuro manif type II E11.49 [facility] [address] [id number] [address] [place] [address] Apr, Ulcer of other part of foot L97.509 and DM neuro manif type II E11.49 [facility] [address] [id number] [address] [place] [address] Apr, Onychomycosis B35.1 ; Ingrow n toenail L60.0 ; Impaired circulation I99.9 and DM neuro manif type II E11.49 [facility] [address] [id number] [address] [place] [address] Mar, Ulcer of other part of foot L97.509 ; Onychomycosis B35.1 and Diabetes mellitus E11.9 [facility] [address] [facility] [id number] [address] [place] [address] 19 Dec, 2014 Encounter for immunization Z 23 ; Hypertension I10 and Diabetes mellitus E11.9 [facility] [address] [facility] [id number] [address] [place] [address] Dec, [facility] [address] [facility] [id number] [address] [place] [address] Dec, CAD (coronary artery disease ) I25.10 ; Hypertension I10 ; Left leg claudication I73.9 and Hyperlipidemia E78.5 [facility] [address] [facility] [id number] [address] [place] [address] Nov, Onychomycosis B35.1 and Vin ertoe M20.40 [facility] [address] [facility] [id number] [address] [place] [address] Sep, Coronary atherosclerosis of unspecified type of vessel, emmonak or graft 414.00 [facility] [address] [facility] [id number] [address] [place] [address] Sep, Coronary atherosclerosis of unspecified type of vessel, emmonak or graft 414.00 and Diabetes 250.00 [facility] [address] [facility] [id number] [address] [place] [address] May, [facility] [address] [facility] [id number] [address] [place] [address] May, [facility] [address] [facility] [id number] [address] [place] [address] Apr, [facility] [address] [facility] [id number] [address] [place] [address] Apr, [facility] [address] [facility] [id number] [address] [place] [address] Apr, [facility] [address] [facility] [id number] [address] [place] [address] Apr, [facility] [address] [place] [id number] [address] [place] [address] [place] [address] Mar, [facility] [address] [id number] [address] [place] [address], [place] [address] Mar, [facility] [address] [id number] [address] [place] [address], [place] [address] Jan, [facility] [address] [id number] [address] [place] [address], [place] [address] Jan, [facility] [address] [id number] [address] [place] [address], [place] [address] Jan, [facility] [address] [id number] [address] [place] [address], [place] [address] Jan, [facility] [address] [id number] [address] [place] [address], [place] [address] Jan, [facility] [address] [id number] [address] [place] [address], [place] [address] Jan, [facility] [address] [id number] [address] [place] [address], [place] [address] Jan, [facility] [address] [id number] [address] [place] [address], [place] [address] Jan, [facility] [address] [id number] [address] [place] [address], [place] [address] Jan, [facility] [address] [id number] [address] [place] [address], [place] [address] Jan, [facility] [address] [id number] [address] [place] [address], [place] [address] Jan, [facility] [address] [id number] [address] [place] [address], [place] [address] Nov, [facility] [place] [address] [id number] [address] [place] [address], [place] [address] Nov, [facility] [address] [id number] [address] [place] [address], [place] [address] Nov, [facility] [address] [id number] [address] [place] [address], [place] [address] Nov, [facility] [address] [id number] [address] [place] [address], [place] [address] 15 Nov, 2013 [facility] [place] [address] [id number] [address] [place] [address], [place] [address] 15 Nov, 2013 [facility] [place] [address] [id number] [address] [place] [address], [place] [address] 19 Oct, 2013 [facility] [place] [address] [id number] [address] [place] [address], [place] [address] 19 Oct, 2013 [facility] [place] [address] [id number] [address] [place] [address], [place] [address] 19 Oct, 2013 [facility] [place] [facility] [address] [id number] [address] [place] [address], [place] [address] 19 Oct, 2013 [facility] [place] [address] [id number] [address] [place] [address], [place] [address] 05 Oct, 2013 [facility] [place] [address] [id number] [address] [place] [address], [place] [address] 05 Oct, 2013 [facility] [place] [facility] [address] [id number] [address] [place] [address], [place] [address] Sep, [facility] [address] [id number] [address] [place] [address], [place] [address] Sep, [facility] [address] [id number] [address] [place] [address], [place] [address] Sep, [facility] [address] [id number] [address] [place] [address], [place] [address] Sep, [facility] [address] [id number] [address] [place] [address], [place] [address] Sep, [facility] [place] [facility] [address] [id number] [address] [place] [address], [place] [address] Sep, [facility] [place] [facility] [address] [id number] [address] [place] [address], [place] [address] Aug, [facility] [address] [id number] [facility] [place] [address] Aug, [facility] [address] [id number] [address] [place] [address], [place] [address] Aug, [facility] [address] [id number] [facility] [place] [address] Aug, [facility] [place] [facility] [address] [id number] [address] [place] [address], [place] [address] Aug, [facility] [address] [id number] [address] [place] [address], [place] [address] Aug, [facility] [address] [id number] [address] [place] [address], [place] [address] Jul, [facility] [address] [id number] [address] [place] [address], [place] [address] Jul, [facility] [place] [address] [id number] [address] [place] [address], [place] [address] Jul, [facility] [address] [id number] [address] [place] [address], [place] [address] Jul, [facility] [address] [id number] [address] [place] [address], [place] [address] June, [facility] [address] [id number] [address] [place] [address], [place] [address] June, [facility] [address] [id number] [address] [place] [address], [place] [address] June, [facility] [address] [id number] [address] [place] [address], [place] [address] June, [facility] [place] [address] [id number] [address] [place] [address], [place] [address] May, [facility] [address] [id number] [address] [place] [address], [place] [address] May, [facility] [place] [facility] [address] [id number] [address] [place] [address] May, [facility] [address] [id number] [address] [place] [address], [place] [address] May, [facility] [address] [id number] [address] [place] [address], [place] [address] May, [facility] [address] [id number] [address] [place] [address], [place] [address] May, [facility] [address] [id number] [address] [place] [address], [place] [address] Apr, [facility] [address] [id number] [address] [place] [address], [place] [address] Apr, [facility] [address] [id number] [address] [place] [address], [place] [address] Apr, [facility] [address] [id number] [address] [place] [address], [place] [address] Apr, [facility] [address] [id number] [address] [place] [address], [place] [address] Apr, [facility] [address] [id number] [address] [place] [address], [place] [address] Apr, [facility] [address] [id number] [address] [place] [address], [place] [address] Apr, [facility] [address] [id number] [address] [place] [address], [place] [address] Jan, [facility] [address] [id number] [address] [place] [address], [place] [address] Jan, [facility] [address] [id number] [address] [place] [address], [place] [address] Jan, [facility] [address] [id number] [address] [place] [address], [place] [address] Jan, [facility] [address] [id number] [address] [place] [address], [place] [address] Jan, [facility] [address] [id number] [address] [place] [address], [place] [address] Jan, [facility] [address] [id number] [address] [place] [address], [place] [address] Dec, [facility] [address] [id number] [address] [place] [address], [place] [address] Dec, [facility] [address] [id number] [address] [place] [address], [place] [address] Dec, [facility] [address] [id number] [address] [place] [address], [place] [address] Dec, [facility] [address] [id number] [address] [place] [address], [place] [address] Dec, [facility] [address] [id number] [address] [place] [address], [place] [address] Dec, [facility] [address] [id number] [address] [place] [address], [place] [address] Nov, [facility] [address] [id number] [address] [place] [address], [place] [address] Oct, [facility] [address] [id number] [address] [place] [address] Oct, [facility] [address] [id number] [address] [place] [address], [place] [address] Aug, [facility] [address] [id number] [address] [place] [address] Aug, [facility] [address] [id number] [address] [place] [address], [place] [address] Jul, [facility] [place] [facility] [address] [id number] [address] [place] [address], [place] [address] June, [facility] [address] [id number] [address] [place] [address], [place] [address] Apr, [facility] [address] [id number] [address] [place] [address], [place] [address] 12 Apr, 2012 [facility] [address] [id number] [address] [place] [address], [place] [address] 08 Apr, 2012 [facility] [address] [id number] [address] [place] [address], [place] [address] 04 Apr, 2012 [facility] [address] [id number] [address] [place] [address], [place] [address] Mar, [facility] [address] [id number] [address] [place] [address], [place] [address] Jan, [facility] [address] [id number] [address] [place] [address], [place] [address] 27 Jan, 2012 [facility] [address] [id number] [address] [place] [address], [place] [address] Jan, [facility] [address] [id number] [address] [place] [address], [place] [id number] Jan, [facility] [address] [id number] [address] [place] [address], [place] [address] Jan, [facility] [address] [id number] [address] [place] [address], [place] [id number] Jan, [facility] [address] [id number] [address] [place] [address], [place] [address] Jan, [facility] [address] [id number] [address] [place] [address], [place] [address] Jan, [facility] [address] [id number] [address] [place] [address], [place] [address] Nov, [facility] [address] [id number] [address] [place] [address], [place] [address] Nov, [facility] [address] [id number] [address] [place] [address], [place] [address] Nov, [facility] [address] [id number] [address] [place] [address], [place] [address] Nov, [facility] [address] [id number] [address] [place] [address], [place] [address] 17 Nov, 2011 [facility] [address] [id number] [address] [place] [address], [place] [address] 24 Oct, 2011 [facility] [address] [id number] [address] [place] [address], [place] [address] 14 Aug, 2011 [facility] [address] [id number] [address] [place] [address], [place] [address] 14 Aug, 2011 [facility] [address] [id number] [address] [place] [address], [place] [address] 14 Aug, 2011 [facility] [address] [id number] [address] [place] [address], [place] [address] 13 Aug, 2011 [facility] [address] [id number] [address] [place] [address], [place] [address] 13 Aug, 2011 [facility] [address] [id number] [address] [place] [phone] Apr, [facility] [address] [id number] [address] [place] [address], [place] [address] 16 Apr, 2011 [facility] [address] [id number] [address] [place] [id number] 16 Apr, 2011 [facility] [address] [id number] [address] [place] [phone] Mar, [facility] [address] [id number] [address] [place] [phone] Mar, [facility] [address] [id number] [address] [place] [phone] Dec, [facility] [address] [id number] [address] [place] [phone] Dec, [facility] [address] [id number] [address] [place] [phone] Dec, IMMUNIZATIONS No Known Immunizations SOCIAL HISTORY Never Assessed REASON FOR VISIT 3 mo f/u - KECIA Brantley PLAN OF CARE Activity Details Follow Up 3 Months Reason: VITAL SIGNS Height 75 in 2017-11-06 Blood pressure systolic 120 mmHg 2017-11-06 Blood pressure diastolic 80 mmHg 2017-11-06 MEDICATIONS Medication Instructions Dosage Frequency Start Date End Date Duration S tatus Zoloft 50 mg Orally Once a day 1 tablet 24h 30 Active Plavix 75 MG Orally Once a day 1 tablet 24h Active Simvastatin 20 mg Orally Once a day 1 tablet in the evening 24h Active Metoprolol Succinate ER 25 MG Orally Once a day 1 tablet 24h Active Metformin HCl 1000 MG Orally twice a day 1 tablet with a meal 12h June, 30 day(s) Active Multi Vitamin Daily - Orally Once a day 1 tablet 24h Active Gabapentin 300 MG Orally Three times a day 1 capsule 8h Active GlipiZIDE 10 mg Orally Once a day 1 tablet 24h Jul, 30 day(s) Active Lisinopril 10 mg Orally Once a day 1 tablet 24h Active Naproxen 500 mg Orally twice a day, pc 1 tablet Oct, 90 days Active Aspir-Low 81 MG Orally Once a day 1 tablet 24h Active RESULTS No Results PROCEDURES Procedure Date Ordered Result Body Site DEBRIDE NAIL, 6 OR MORE Nov 06, 2017 INSTRUCTIONS MEDICATIONS ADMINISTERED No Known Medications MEDICAL [...]
--- OUTSIDE RECORDS SUMMARY | 2019-06-21 16:33 | XMS REPORT ---
Author Author Nick ABDI Organization [facility] Address [address] [place] [address] Care Team Providers Care Oracle Hr[employer] Developer Name Role Phone ELVIN ABDI Unavailable PROBLEMS Type Condition ICD9-CM Code VFI15-SL Code Onset Dates Condition S tatus SNOMED Code Problem Hyperlipidemia E78.5 Active 21144 004 Problem DM neuro manif type II E11.49 Active 36170029 Problem Diabetes mellitus E11.9 Active 73 035012 Problem Left leg claudication I73.9 Active 606546117 Problem CAD (coronary artery disease) I25.10 Active 99023689 Problem Hypertension I10 Active 4962376 3 Problem Hypoglycemia E16.2 Active 2232630 03 Problem Arthritis M19.90 Active 7892959 Problem Cigarette nicotine dependence with nicotine-induced di sorder F17.219 Active 21103766 Problem Impaired circulation I99.9 Active 75610389 Problem Hammertoe M20.40 Active 264980871 Problem Reactive depression F32.9 Active 60756657 ALLERGIES Substance Reaction Event Type Date Status Penicillin V Potassium Unknown Drug Allergy Aug, Activ e Spiders Unknown Non Drug Allergy Aug, Active Artificial sweetner migraines, diarrhea Non Drug Allergy Aug, 18 Active Bee Stings anaphylaxis Non Drug Allergy Aug, Active ENCOUNTERS Encounter Location Date Diagnosis [facility] [address] [facility] [id number] [address] [place] [address] Jan, [facility] [address] [facility] [id number] [address] [place] [address] Jan, [facility] [address] [facility] [id number] [address] [place] [address] Oct, Onychomycosis B35.1 ; DM chuck ro manif type II E11.49 and Impaired circulation I99.9 [facility] [address] [facility] [id number] [address] [place] [address] Sep, [facility] [address] [facility] [id number] [address] [place] [address] Aug, Hypoglycemia E16.2 [facility] [address] [facility] [id number] [address] [place] [address] Aug, [facility] [address] [facility] [id number] [address] [place] [address] Jul, [facility] [address] [facility] [id number] [address] [place] [address] Jul, Elevated blood sugar R73.9 a nd Neck pain M54.2 [facility] [address] [facility] [id number] [place] [address] Jul, [facility] [address] [place] [id number] [address] [place] [address] Jul, Onychomycosis B35.1 and DM n euro manif type II E11.49 [facility] [address] [facility] [id number] [address] [place] [address] Jul, [facility] [address] [facility] [id number] [address] [place] [address] June, Hyperlipidemia E78.5 [facility] [address] [facility] [id number] [address] [place] [address] June, Diabetes mellitus E11.9 ; CA D (coronary artery disease) I25.10 ; Arthritis M19.90 and Hyperlipidemia E78.5 [facility] [address] [facility] [id number] [address] [place] [address] June, [facility] [address] [facility] [id number] [address] [place] [address] Apr, Onychomycosis B35.1 ; DM chuck ro manif type II E11.49 and Hammertoe M20.40 [facility] [address] [facility] [id number] [address] [place] [address] Apr, Diabetes mellitus E11.9 and Hypertension I10 [place] [address] [facility] [id number] [address] [place] [address] Mar, Hypertension I10 and Diabete s mellitus E11.9 [place] [address] [facility] [id number] [address] [place] [address] Mar, Hypertension I10 and Diabete s mellitus E11.9 [place] [address] [place] [id number] [address] [place] [address] Jan, Onychomycosis B35.1 and DM n euro manif type II E11.49 [place] [address] [place] [id number] [address] [place] [address] Dec, [place] [address] [place] [id number] [place] [address] Dec, [place] [address] [address] Dec, Hypertension I10 and Diabete s mellitus E11.9 [place] [address] [place] [id number] [address] [place] [address] Oct, Encounter for immunization Z 23 ; Diabetes mellitus E11.9 ; Hypertension I10 and Cigarette nicotine dependence with nicotine-induced disorder F17.219 [place] [address] [place] [id number] [address] [place] [address] Oct, Diabetes mellitus E11.9 [place] [address] [address] Oct, Onychomycosis B35.1 ; DM chuck ro manif type II E11.49 and Hammertoe M20.40 [place] [address] [place] [id number] [address] [place] [address] Jul, Diabetes mellitus E11.9 [place] [address] [place] [id number] [address] [place] [address] Jul, Onychomycosis B35.1 ; Hammer toe M20.40 and DM neuro manif type II E11.49 [place] [address] [facility] [id number] [address] [place] [address] May, Diabetes mellitus E11.9 [place] [address] [place] [id number] [place] [address] May, Diabetes mellitus E11.9 [place] [address] [place] [id number] [address] [place] [address] Nov, Diabetes mellitus E11.9 ; Hy pertension I10 ; Reactive depression F32.9 and Encounter for immunization Z23 [place] [address] [facility] [id number] [address] [place] [address] Oct, Ulcer of other part of foot L97.509 [place] [address] [place] [id number] [address] [place] [address] Sep, Onychomycosis B35.1 ; Ulcer of heel, left, with unspecified severity L97.429 and DM neuro manif type II E11.49 [place] [id number] [place] [address] Sep, [place] [address] [facility] [id number] [address] [place] [address] Sep, Ulcer of heel, left, with un specified severity L97.429 [place] [address] [facility] [id number] [address] [place] [address] Aug, Onychomycosis B35.1 ; Ulcer of heel, left, with unspecified severity L97.429 and DM neuro manif type II E11.49 [place] [address] [facility] [id number] [address] [place] [address] Jul, Diabetes mellitus E11.9 ; Hy pertension I10 ; Cigarette nicotine dependence with nicotine-induced disorder F17.219 and CAD (coronary artery disease) I25.10 [place] [address] [facility] [id number] [address] [place] [address] Jul, Left leg claudication I73.9 ; Right leg claudication I73.9 ; CAD (coronary artery disease) I25.10 ; Hypertension I10 and Hyperlipidemia E78.5 [facility] [address] [id number] [address] [place] [address] Jul, Ulcer of heel, left, with un specified severity L97.429 and DM neuro manif type II E11.49 [facility] [address] [id number] [address] [place] [address] June, Ulcer of heel, left, with un specified severity L97.429 and Ulcer of other part of foot L97.509 [facility] [address] [id number] [address] [place] [address] June, Ulcer of heel, left, with un specified severity L97.429 and Ulcer of foot, left, with unspecified severity L97.529 [place] [address] [id number] [address] [place] [address] May, [place] [address] [id number] [address] [place] [address] May, [facility] [address] [id number] [address] [place] [address] Apr, DM neuro manif type II E11.4 9 ; Hypertension I10 and Sleep apnea in adult G47.33 [facility] [address] [id number] [address] [place] [address] Apr, [facility] [address] [id number] [address] [place] [address] Apr, Ulcer of foot L97.509 and DM neuro manif type II E11.49 [facility] [address] [id number] [address] [place] [address] Apr, Ulcer of other part of foot L97.509 and DM neuro manif type II E11.49 [facility] [address] [id number] [address] [place] [address] Apr, Onychomycosis B35.1 ; Ingrow n toenail L60.0 ; Impaired circulation I99.9 and DM neuro manif type II E11.49 [place] [address] [place] [id number] [address] [place] [address] 08 Mar, 2015 Ulcer of other part of foot L97.509 ; Onychomycosis B35.1 and Diabetes mellitus E11.9 [place] [address] [place] [id number] [address] [place] [address] Dec, Encounter for immunization Z 23 ; Hypertension I10 and Diabetes mellitus E11.[address] [address] Dec, [address] [address] Dec, CAD (coronary artery disease ) I25.10 ; Hypertension I10 ; Left leg claudication I73.9 and Hyperlipidemia E78.[address] [address] Nov, Onychomycosis B35.1 and Vin ertoe M20.40 [place] [address] [address] Sep, Coronary atherosclerosis of unspecified type of vessel, tonto apache or graft 414.[address] [address] Sep, Coronary atherosclerosis of unspecified type of vessel, tonto apache or graft 414.00 and Diabetes 250.00 [place] [address] [place] [id number] [address] [place] [address] May, [place] [address] [address] May, [address] [address] Apr, [place] [address] [place] [id number] [place] [address] Apr, [place] [address] [address] Apr, [facility] [address] [id number] [address] [place] [address], [place] [address] Apr, [facility] [address] [id number] [address] [place] [address], [place] [address] Mar, [facility] [address] [id number] [address] [place] [address], [place] [address] Mar, [facility] [address] [id number] [address] [place] [address], [place] [address] Jan, [facility] [address] [id number] [address] [place] [address], [place] [address] Jan, [facility] [address] [id number] [address] [place] [address], [place] [address] Jan, [facility] [address] [id number] [address] [place] [address], [place] [address] Jan, [facility] [address] [id number] [address] [place] [address], [place] [address] Jan, [facility] [address] [id number] [address] [place] [address], [place] [address] Jan, [facility] [address] [id number] [address] [place] [address], [place] [address] Jan, [facility] [address] [id number] [address] [place] [address], [place] [address] Jan, [facility] [address] [id number] [address] [place] [address], [place] [address] Jan, [facility] [address] [id number] [address] [place] [address], [place] [address] Jan, [facility] [address] [id number] [address] [place] [address], [place] [address] Jan, [facility] [address] [id number] [address] [place] [address], [place] [address] Nov, [facility] [address] [id number] [address] [place] [address], [place] [address] Nov, [facility] [address] [id number] [address] [place] [address], [place] [address] Nov, [facility] [address] [id number] [address] [place] [address], [place] [address] Nov, [facility] [address] [id number] [address] [place] [address], [place] [address] 15 Nov, 2013 [facility] [address] [id number] [address] [place] [address], [place] [address] 15 Nov, 2013 [facility] [address] [id number] [address] [place] [address], [place] [address] 19 Oct, 2013 [facility] [address] [id number] [address] [place] [address], [place] [address] 19 Oct, 2013 [facility] [address] [id number] [address] [place] [address], [place] [address] 19 Oct, 2013 [facility] [address] [id number] [address] [place] [address], [place] [address] 19 Oct, 2013 [facility] [address] [id number] [address] [place] [address], [place] [address] 05 Oct, 2013 [facility] [address] [id number] [address] [place] [address], [place] [address] 05 Oct, 2013 [facility] [address] [id number] [address] [place] [address], [place] [address] 20 Sep, 2013 [facility] [address] [id number] [address] [place] [address], [place] [address] Sep, [facility] [address] [id number] [address] [place] [address], [place] [address] Sep, [facility] [address] [id number] [address] [place] [address], [place] [address] Sep, [facility] [address] [id number] [address] [place] [address], [place] [address] Sep, [facility] [address] [id number] [address] [place] [address], [place] [address] Sep, [facility] [address] [id number] [address] [place] [address], [place] [address] Aug, [facility] [address] [id number] [address] [place] [address], [place] [address] Aug, [facility] [address] [id number] [address] [place] [address], [place] [address] Aug, [facility] [address] [id number] [address] [place] [address], [place] [address] Aug, [facility] [address] [id number] [address] [place] [address], [place] [address] Aug, [facility] [address] [id number] [address] [place] [address], [place] [address] Aug, [facility] [address] [id number] [address] [place] [address], [place] [address] Jul, [facility] [address] [id number] [address] [place] [address], [place] [address] Jul, [facility] [address] [id number] [address] [place] [address], [place] [address] Jul, [facility] [address] [id number] [address] [place] [address], [place] [address] Jul, [facility] [address] [id number] [address] [place] [address], [place] [address] June, [facility] [address] [id number] [address] [place] [address], [place] [address] June, [facility] [address] [id number] [address] [place] [address], [place] [address] June, [facility] [address] [id number] [address] [place] [address], [place] [address] June, [facility] [address] [id number] [address] [place] [address], [place] [address] May, [facility] [address] [id number] [address] [place] [address], [place] [address] May, [facility] [address] [id number] [address] [place] [address], [place] [address] May, [facility] [address] [id number] [address] [place] [address], [place] [address] May, [facility] [address] [id number] [address] [place] [address], [place] [address] May, [facility] [address] [id number] [address] [place] [address], [place] [address] May, [facility] [address] [id number] [address] [place] [address], [place] [address] Apr, [facility] [address] [id number] [address] [place] [address], [place] [address] Apr, [facility] [address] [id number] [address] [place] [address], [place] [address] Apr, [facility] [address] [id number] [address] [place] [address], [place] [address] Apr, [facility] [address] [id number] [address] [place] [address], [place] [address] Apr, [facility] [address] [id number] [address] [place] [address], [place] [address] Apr, [facility] [address] [id number] [address] [place] [address], [place] [address] Apr, [facility] [address] [id number] [address] [place] [address], [place] [address] Jan, [facility] [address] [id number] [address] [place] [address], [place] [address] Jan, [facility] [address] [id number] [address] [place] [address], [place] [address] Jan, [facility] [address] [id number] [address] [place] [address], [place] [address] Jan, [facility] [address] [id number] [address] [place] [address], [place] [address] Jan, [facility] [address] [id number] [address] [place] [address], [place] [address] Jan, [facility] [address] [id number] [address] [place] [address], [place] [address] Dec, [facility] [address] [id number] [address] [place] [address], [place] [address] Dec, [facility] [address] [id number] [address] [place] [address], [place] [address] Dec, [facility] [address] [id number] [address] [place] [address], [place] [address] Dec, [facility] [address] [id number] [address] [place] [address], [place] [address] Dec, [facility] [address] [id number] [address] [place] [address], [place] [address] Dec, [facility] [address] [id number] [address] [place] [address], [place] [address] Nov, [facility] [address] [id number] [address] [place] [address], [place] [address] Oct, [facility] [address] [id number] [address] [place] [address], [place] [address] Oct, [facility] [address] [id number] [address] [place] [address], [place] [address] Aug, [facility] [address] [id number] [address] [place] [address], [place] [address] Aug, [facility] [address] [id number] [address] [place] [address], [place] [address] Jul, [facility] [address] [id number] [address] [place] [address], [place] [address] June, [facility] [address] [id number] [address] [place] [address], [place] [address] Apr, [facility] [address] [id number] [address] [place] [address], [place] [address] Apr, [facility] [address] [id number] [address] [place] [address], [place] [address] Apr, [facility] [address] [id number] [address] [place] [address], [place] [address] Apr, [facility] [address] [id number] [address] [place] [address], [place] [address] Mar, [facility] [address] [id number] [address] [place] [address], [place] [address] Jan, [facility] [address] [id number] [address] [place] [address], [place] [address] Jan, [facility] [address] [id number] [address] [place] [address], [place] [address] Jan, [facility] [address] [id number] [address] [place] [address], [place] [address] Jan, [facility] [address] [id number] [address] [place] [address], [place] [phone] Jan, [facility] [address] [id number] [address] [place] [address], [place] [id number] Jan, [facility] [address] [id number] [address] [place] [address], [place] [id number] Jan, [facility] [address] [id number] [address] [place] [address], [place] [phone] Jan, [facility] [address] [id number] [address] [place] [address], [place] [phone] Nov, [facility] [address] [id number] [address] [place] [address], [place] [address] Nov, [facility] [address] [id number] [address] [place] [address], [place] [id number] 16 Dec, 2011 [facility] [address] [id number] [address] [place] [address], [place] [id number] 16 Dec, 2011 [facility] [address] [id number] [address] [place] [address], [place] [id number] 17 Nov, 2011 [facility] [address] [id number] [address] [place] [address], [place] [id number] 24 Oct, 2011 [facility] [address] [id number] [address] [place] [address], [place] [id number] 14 Aug, 2011 [facility] [address] [id number] [address] [place] [address], [place] [address] 14 Aug, 2011 [facility] [address] [id number] [address] [place] [address], [place] [address] 14 Aug, 2011 [facility] [address] [id number] [address] [place] [address], [place] [phone] 13 Aug, 2011 [facility] [address] [id number] [address] [place] [address], [place] [address] 13 Aug, 2011 [facility] [address] [id number] [address] [place] [address], [place] [phone] Apr, [facility] [address] [id number] [address] [place] [address], [place] [id number] 16 Apr, 2011 [facility] [address] [id number] [address] [place] [address], [place] [address] Apr, [facility] [address] [id number] [address] [place] [address], [place] [id number] Mar, [facility] [address] [id number] [address] [place] [address], [place] [phone] Mar, [facility] [address] [id number] [address] [place] [address], [place] [phone] Dec, [facility] [address] [id number] [address] [place] [address], [place] [id number] Dec, [facility] [address] [facility] [id number] [address] [place] [address] Dec, IMMUNIZATIONS No Known Immunizations SOCIAL HISTORY Never Assessed REASON FOR VISIT Diabetes Pt in for check up on DM due to blood sugar lows (59 and lower) with t he medication change KECIA Coronado PLAN OF CARE Activity Details Follow Up 4 Weeks Reason: VITAL SIGNS Height 75 in 2017-09-28 Weight 227.4 lbs 2017-09-28 Temperature 97.8 degrees Fahrenheit 2017-09-28 Heart Rate 74 bpm 2017-09-28 Respiratory Rate 18 2017-09-28 BMI 28.42 kg/m2 2017-09-28 Blood pressure systolic 120 mmHg 2017-09-28 Blood pressure diastolic 72 mmHg 2017-09-28 MEDICATIONS Medication Instructions Dosage Frequency Start Date End Date Duration S tatus Aspir-Low 81 MG Orally Once a day 1 tablet 24h Active Simvastatin 20 mg Orally Once a day 1 tablet in the evening 24h Active Lisinopril 10 mg Orally Once a day 1 tablet 24h Active Naproxen 500 mg Orally twice a day, pc 1 tablet Oct, 90 days Active Metformin HCl 1000 MG Orally twice a day 1 tablet with a meal 12h June, 30 day(s) Active Multi Vitamin Daily - Orally Once a day 1 tablet 24h Active Zoloft 50 mg Orally Once a day 1 tablet 24h 30 Active Gabapentin 300 MG Orally Three times a day 1 capsule 8h Active Plavix 75 MG Orally Once a day 1 tablet 24h Active Metoprolol Succinate ER 25 MG Orally Once a day 1 tablet 24h Active GlipiZIDE 10 mg Orally Once a day 1 tablet 24h Jul, 30 day(s) Active RESULTS No Results PROCEDURES No Known [...]
--- OUTSIDE RECORDS SUMMARY | 2019-06-21 16:33 | XMS REPORT ---
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 Name Role Phone ELVIN ABDI Unavailable PROBLEMS Type Condition ICD9-CM Code IFA52-NW Code Onset Dates Condition S tatus SNOMED Code Problem Hyperlipidemia E78.5 Active 77467 004 Problem DM neuro manif type II E11.49 Active 77374334 Problem Diabetes mellitus E11.9 Active 73 389469 Problem Left leg claudication I73.9 Active 397400926 Problem CAD (coronary artery disease) I25.10 Active 41170216 Problem Hypertension I10 Active 5900500 3 Problem Hypoglycemia E16.2 Active 0419680 03 Problem Arthritis M19.90 Active 3979191 Problem Cigarette nicotine dependence with nicotine-induced di sorder F17.219 Active 32085094 Problem Impaired circulation I99.9 Active 51048055 Problem Hammertoe M20.40 Active 677653370 Problem Reactive depression F32.9 Active 22169430 ALLERGIES No Information ENCOUNTERS Encounter Location Date Diagnosis [facility] [place] [address] [facility] [id number] [address] [place] [phone] Jan, [facility] [place] [address] [facility] [id number] [address] [place] [phone] Jan, [facility] [place] [address] [facility] [id number] [address] [place] [address] Jan, Diabetes mellitus E11.9 [facility] [place] [address] [facility] [id number] [address] [place] [address] Jan, [facility] [place] [address] [facility] [id number] [address] [place] [address] Jan, [facility] [place] [address] [facility] [id number] [address] [place] [address] Oct, Onychomycosis B35.1 ; DM chuck ro manif type II E11.49 and Impaired circulation I99.9 [facility] [place] [address] [facility] [id number] [address] [place] [address] Sep, [facility] [place] [address] [facility] [id number] [address] [place] [address] Aug, Hypoglycemia E16.2 [facility] [place] [address] [place] [id number] [place] [phone] Aug, [facility] [place] [address] [facility] [id number] [address] [place] [address] Jul, [facility] [place] [address] [place] [id number] [place] [address] Jul, Elevated blood sugar R73.9 a nd Neck pain M54.2 [place] [address] [place] [id number] [place] [address] Jul, [facility] [place] [address] [place] [id number] [place] [address] Jul, Onychomycosis B35.1 and DM n euro manif type II E11.49 [facility] [place] [address] [place] [id number] [address] [place] [address] Jul, [facility] [place] [address] [place] [id number] [address] [place] [address] June, Hyperlipidemia E78.5 [facility] [place] [address] [place] [id number] [address] [place] [address] June, Diabetes mellitus E11.9 ; CA D (coronary artery disease) I25.10 ; Arthritis M19.90 and Hyperlipidemia E78.5 [facility] [place] [address] [facility] [id number] [address] [place] [phone] June, [facility] [place] [address] [facility] [id number] [address] [place] [address] Apr, Onychomycosis B35.1 ; DM chuck ro manif type II E11.49 and Hammertoe M20.40 [facility] [place] [address] [facility] [id number] [address] [place] [address] Apr, Diabetes mellitus E11.9 and Hypertension I10 [facility] [place] [address] [facility] [id number] [address] [place] [phone] Mar, Hypertension I10 and Diabete s mellitus E11.9 [facility] [place] [address] [place] [id number] [address] [place] [address] Mar, Hypertension I10 and Diabete s mellitus E11.9 [place] [address] [facility] [id number] [address] [place] [address] Jan, Onychomycosis B35.1 and DM n euro manif type II E11.49 [place] [address] [facility] [id number] [address] [place] [address] Dec, [place] [address] [place] [id number] [place] [address] Dec, [place] [address] [facility] [id number] [address] [place] [address] Dec, Hypertension I10 and Diabete s mellitus E11.9 [place] [address] [place] [id number] [address] [place] [address] Oct, Encounter for immunization Z 23 ; Diabetes mellitus E11.9 ; Hypertension I10 and Cigarette nicotine dependence with nicotine-induced disorder F17.219 [place] [address] [facility] [id number] [address] [place] [address] Oct, Diabetes mellitus E11.9 [place] [address] [facility] [id number] [address] [place] [address] Oct, Onychomycosis B35.1 ; DM chuck ro manif type II E11.49 and Hammertoe M20.40 [facility] [place] [address] [facility] [id number] [address] [place] [address] Jul, Diabetes mellitus E11.9 [place] [address] [address] Jul, Onychomycosis B35.1 ; Hammer toe M20.40 and DM neuro manif type II E11.49 [place] [address] [address] May, Diabetes mellitus E11.[address] [address] May, Diabetes mellitus E11.9 [place] [address] [address] Nov, Diabetes mellitus E11.9 ; Hy pertension I10 ; Reactive depression F32.9 and Encounter for immunization Z23 [place] [address] [address] Oct, Ulcer of other part of foot L97.[address] [address] Sep, Onychomycosis B35.1 ; Ulcer of heel, left, with unspecified severity L97.429 and DM neuro manif type II E11.49 [place] [address] [address] Sep, [address] [address] Sep, Ulcer of heel, left, with un specified severity L97.429 [place] [address] [address] Aug, Onychomycosis B35.1 ; Ulcer of heel, left, with unspecified severity L97.429 and DM neuro manif type II E11.[address] [address] Jul, Diabetes mellitus E11.9 ; Hy pertension I10 ; Cigarette nicotine dependence with nicotine-induced disorder F17.219 and CAD (coronary artery disease) I25.[address] [place] [address] Jul, Left leg claudication I73.9 ; Right leg claudication I73.9 ; CAD (coronary artery disease) I25.10 ; Hypertension I10 and Hyperlipidemia E78.5 [facility] [place] [address] [facility] [id number] [address] [place] [address] Jul, Ulcer of heel, left, with un specified severity L97.429 and DM neuro manif type II E11.49 [facility] [place] [address] [facility] [id number] [address] [place] [address] June, Ulcer of heel, left, with un specified severity L97.429 and Ulcer of other part of foot L97.509 [place] [address] [facility] [id number] [address] [place] [address] June, Ulcer of heel, left, with un specified severity L97.429 and Ulcer of foot, left, with unspecified severity L97.529 [place] [address] [facility] [id number] [address] [place] [phone] May, [facility] [place] [address] [facility] [id number] [address] [place] [address] May, [facility] [place] [address] [place] [id number] [address] [place] [address] Apr, DM neuro manif type II E11.4 9 ; Hypertension I10 and Sleep apnea in adult G47.33 [facility] [place] [address] [facility] [id number] [address] [place] [address] Apr, [facility] [place] [address] [facility] [id number] [address] [place] [address] Apr, Ulcer of foot L97.509 and DM neuro manif type II E11.49 [facility] [place] [address] [facility] [id number] [address] [place] [address] Apr, Ulcer of other part of foot L97.509 and DM neuro manif type II E11.49 [facility] [place] [address] [facility] [id number] [address] [place] [address] Apr, Onychomycosis B35.1 ; Ingrow n toenail L60.0 ; Impaired circulation I99.9 and DM neuro manif type II E11.[address] [address] 08 Mar, 2015 Ulcer of other part of foot L97.509 ; Onychomycosis B35.1 and Diabetes mellitus E11.[address] [address] Dec, Encounter for immunization Z 23 ; Hypertension I10 and Diabetes mellitus E11.[address] [address] Dec, [address] [address] Dec, CAD (coronary artery disease ) I25.10 ; Hypertension I10 ; Left leg claudication I73.9 and Hyperlipidemia E78.[address] [address] Nov, Onychomycosis B35.1 and Vin ertoe M20.[address] [address] Sep, Coronary atherosclerosis of unspecified type of vessel, [place] or graft 414.[address] [address] Sep, Coronary atherosclerosis of unspecified type of vessel, [place] or graft 414.00 and Diabetes 250.00 [place] [address] [address] May, [address] [address] May, [place] [address] [address] Apr, [address] [place] [address] Apr, [facility] [address] [id number] [address] [place] [address], [place] [address] Apr, [facility] [address] [id number] [address] [place] [address], [place] [address] Apr, [facility] [address] [id number] [address] [place] [address], [place] [address] Mar, [facility] [address] [id number] [address] [place] [address], [place] [address] Mar, [facility] [address] [id number] [address] [place] [address], [place] [address] Jan, [facility] [address] [id number] [address] [place] [address], [place] [address] Jan, [facility] [address] [id number] [address] [place] [address], [place] [address] Jan, [facility] [address] [id number] [address] [place] [address], [place] [address] Jan, [facility] [address] [id number] [address] [place] [address], [place] [address] Jan, [facility] [address] [id number] [address] [place] [address], [place] [address] Jan, [facility] [address] [id number] [address] [place] [address], [place] [address] Jan, [facility] [address] [id number] [address] [place] [address], [place] [address] Jan, [facility] [address] [id number] [address] [place] [address], [place] [address] Jan, [facility] [address] [id number] [address] [place] [address], [place] [address] Jan, [facility] [address] [id number] [address] [place] [address], [place] [address] Jan, [facility] [address] [id number] [address] [place] [address], [place] [address] Nov, [facility] [place] [facility] [address] [id number] [address] [place] [address], [place] [address] Nov, [facility] [address] [id number] [address] [place] [address], [place] [address] Nov, [facility] [place] [facility] [address] [id number] [address] [place] [address], [place] [address] Nov, [facility] [address] [id number] [address] [place] [address], [place] [address] Nov, [facility] [address] [id number] [address] [place] [address], [place] [address] Nov, [facility] [address] [id number] [address] [place] [address], [place] [address] Oct, [facility] [place] [facility] [address] [id number] [address] [place] [address], [place] [address] Oct, [facility] [address] [id number] [address] [place] [address], [place] [address] Oct, [facility] [address] [id number] [address] [place] [address], [place] [address] Oct, [facility] [place] [facility] [address] [id number] [address] [place] [address], [place] [address] Oct, [facility] [place] [facility] [address] [id number] [address] [place] [address] 05 Oct, 2013 [facility] [place] [facility] [address] [id number] [address] [place] [address], [place] [address] Sep, [facility] [place] [facility] [address] [id number] [address] [place] [address], [place] [address] Sep, [facility] [place] [facility] [address] [id number] [address] [place] [address], [place] [address] Sep, [facility] [place] [facility] [address] [id number] [address] [place] [address] Sep, [facility] [address] [id number] [address] [place] [address], [place] [address] Sep, [facility] [place] [facility] [address] [id number] [address] [place] [address], [place] [address] Sep, [facility] [address] [id number] [address] [place] [address], [place] [address] Aug, [facility] [place] [facility] [address] [id number] [address] [place] [address], [place] [address] Aug, [facility] [address] [id number] [address] [place] [address], [place] [address] Aug, [facility] [address] [id number] [address] [place] [address], [place] [address] Aug, [facility] [address] [id number] [address] [place] [address], [place] [address] Aug, [facility] [address] [id number] [address] [place] [address], [place] [address] Aug, [facility] [address] [id number] [address] [place] [address], [place] [address] Jul, [facility] [address] [id number] [address] [place] [address], [place] [address] Jul, [facility] [place] [facility] [address] [id number] [address] [place] [address], [place] [address] Jul, [facility] [place] [facility] [address] [id number] [address] [place] [address], [place] [address] Jul, [facility] [place] [facility] [address] [id number] [address] [place] [address], [place] [address] June, [facility] [place] [facility] [address] [id number] [address] [place] [address], [place] [address] June, [facility] [place] [facility] [address] [id number] [address] [place] [address], [place] [address] June, [facility] [place] [facility] [address] [id number] [address] [place] [address], [place] [address] June, [facility] [address] [id number] [address] [place] [address], [place] [address] May, [facility] [address] [id number] [address] [place] [address], [place] [address] May, [facility] [address] [id number] [address] [place] [address], [place] [address] May, [facility] [address] [id number] [address] [place] [address], [place] [address] May, [facility] [address] [id number] [address] [place] [address], [place] [address] May, [facility] [address] [id number] [address] [place] [address], [place] [address] May, [facility] [address] [id number] [address] [place] [address], [place] [address] Apr, [facility] [address] [id number] [address] [place] [address], [place] [address] Apr, [facility] [address] [id number] [address] [place] [address], [place] [address] Apr, [facility] [address] [id number] [address] [place] [address], [place] [address] Apr, [facility] [place] [facility] [address] [id number] [address] [place] [address], [place] [address] Apr, [facility] [address] [id number] [address] [place] [address], [place] [address] Apr, [facility] [place] [facility] [address] [id number] [address] [place] [address], [place] [address] Apr, [facility] [address] [id number] [address] [place] [address], [place] [address] Jan, [facility] [place] [facility] [address] [id number] [address] [place] [address], [place] [address] Jan, [facility] [address] [id number] [address] [place] [address], [place] [address] Jan, [facility] [address] [id number] [address] [place] [address], [place] [address] Jan, [facility] [address] [id number] [address] [place] [address], [place] [address] Jan, [facility] [address] [id number] [address] [place] [address], [place] [address] Jan, [facility] [address] [id number] [address] [place] [address], [place] [address] Dec, [facility] [address] [id number] [address] [place] [address], [place] [address] Dec, [facility] [address] [id number] [address] [place] [address], [place] [address] Dec, [facility] [address] [id number] [address] [place] [address], [place] [address] Dec, [facility] [address] [id number] [address] [place] [address], [place] [address] Dec, [facility] [address] [id number] [address] [place] [address], [place] [address] Dec, [facility] [address] [id number] [address] [place] [address] Nov, [facility] [place] [facility] [address] [id number] [address] [place] [address] Oct, [facility] [address] [id number] [address] [place] [address], [place] [address] Oct, [facility] [place] [facility] [address] [id number] [address] [place] [address] Aug, [facility] [address] [id number] [address] [place] [address] Aug, [facility] [address] [id number] [address] [place] [address], [place] [address] Jul, [facility] [address] [id number] [address] [place] [address], [place] [address] June, [facility] [address] [id number] [address] [place] [address], [place] [address] Apr, [facility] [address] [id number] [address] [place] [address], [place] [address] Apr, [facility] [address] [id number] [address] [place] [address], [place] [address] Apr, [facility] [address] [id number] [address] [place] [address], [place] [address] Apr, [facility] [address] [id number] [address] [place] [address], [place] [address] Mar, [facility] [address] [id number] [address] [place] [address], [place] [address] Jan, [facility] [address] [id number] [address] [place] [address], [place] [address] Jan, [facility] [address] [id number] [address] [place] [address], [place] [address] Jan, [facility] [address] [id number] [address] [place] [address], [place] [address] Jan, [facility] [address] [id number] [address] [place] [address], [place] [address] Jan, [facility] [address] [id number] [address] [place] [address], [place] [address] Jan, [facility] [address] [id number] [address] [place] [address], [place] [address] Jan, [facility] [address] [id number] [address] [place] [address], [place] [address] Jan, [facility] [address] [id number] [address] [place] [address], [place] [address] Nov, [facility] [address] [id number] [address] [place] [address], [place] [address] 16 Dec, 2011 [facility] [address] [id number] [address] [place] [address], [place] [address] 16 Dec, 2011 [facility] [address] [id number] [address] [place] [address], [place] [address] 16 Dec, 2011 [facility] [address] [id number] [address] [place] [address], [place] [address] 17 Nov, 2011 [facility] [address] [id number] [address] [place] [address], [place] [address] 24 Oct, 2011 [facility] [address] [id number] [address] [place] [address], [place] [address] 14 Aug, 2011 [facility] [address] [id number] [address] [place] [address], [place] [address] 14 Aug, 2011 [facility] [address] [id number] [address] [place] [address], [place] [address] 14 Aug, 2011 [facility] [address] [id number] [address] [place] [address], [place] [address] 13 Aug, 2011 [facility] [address] [id number] [address] [place] [address], [place] [address] 13 Aug, 2011 [facility] [address] [id number] [address] [place] [address], [place] [address] Apr, [facility] [address] [id number] [address] [place] [address], [place] [address] 16 Apr, 2011 [facility] [address] [id number] [address] [place] [address], [place] [address] 16 Apr, 2011 [facility] [address] [id number] [address] [place] [address], [place] [address] Mar, [facility] [address] [id number] [address] [place] [address], [place] [address] Mar, [facility] [address] [id number] [address] [place] [address] Dec, [facility] [place] [address] [facility] [id number] [address] [place] [address] Dec, [facility] [place] [address] [facility] [id number] [address] [place] [address] Dec, IMMUNIZATIONS No Known Immunizations SOCIAL HISTORY [...]
--- OUTSIDE RECORDS SUMMARY | 2019-06-21 16:33 | XMS REPORT ---
Author Author Nick Roberts Doctor Organization [facility] Address Unknown Phone Unavailable Care Team Providers Care [employer] Captain Name Role Phone Migration, Doctor Unavailable Unavailable PROBLEMS Type Condition ICD9-CM Code [id number] Code Onset Dates Condition S tatus SNOMED Code Problem Hypertension I10 Active 2060705 3 Problem Left leg claudication I73.9 Active 177252620 Problem Hyperlipidemia E78.5 Active 55398 004 Problem CAD (coronary artery disease) I25.10 Active 25663594 Problem Impaired circulation I99.9 Active 23344625 Problem Diabetes mellitus E11.9 Active 73 561795 Problem Cigarette nicotine dependence with nicotine-induced di sorder F17.219 Active 59813723 Problem DM neuro manif type II E11.49 Active 37360719 Problem Arthritis M19.90 Active 3005571 Problem Hypoglycemia E16.2 Active 8805637 03 Problem 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 Active 80830 005 Problem Tobacco abuse Z72.0 Active 063133 05 Problem Hammertoe M20.40 Active 411612978 Problem Essential (primary) hypertension I10 Active 52414253 Problem Reactive depression F32.9 Active 19333238 Problem Carotid artery disease I77.9 Active 788888946 Problem Hypercholesteremia E78.00 Active 2 23644290 Problem Type 2 diabetes mellitus E11.9 Activ e 23418430 Problem PAD (peripheral artery disease) I73.9 Active 623421128 ALLERGIES No Information ENCOUNTERS Encounter Location Date Diagnosis [address] [address] Jul, [facility] [address] [facility] [id number] [address] [address] Jul, [address] [address] Apr, Type 2 diabetes mellitus E11.9 ; [...] M20.40 ; Arthritis M19.90 and Hypoglycemia E16.2 [place] [address] [address] [facility] [id number] [address] [place] [address] Apr, Diabetes mellitus E11.9 [place] [address] [address] [facility] [id number] [address] [place] [address] Apr, Onychomycosis B35.1 ; Impair ed circulation I99.9 and DM neuro manif type II E11.49 [place] [address] [address] [facility] [id number] [address] [place] [address] Jan, Diabetes mellitus E11.9 ; Hy pertension I10 and Encounter for immunization Z23 [place] [address] [address] [facility] [id number] [address] [place] [address] Jan, Diabetes mellitus E11.9 [place] [address] [address] [facility] [id number] [address] [place] [address] Jan, [place] [address] [address] [facility] [id number] [address] [place] [address] Jan, [place] [address] [address] [facility] [id number] [address] [place] [address] Oct, Onychomycosis B35.1 ; DM chuck ro manif type II E11.49 and Impaired circulation I99.9 [facility] [address] [facility] [id number] [address] [place] [address] Sep, [place] [address] [address] [facility] [id number] [address] [place] [address] Aug, Hypoglycemia E16.2 [place] [address] [address] [facility] [id number] [address] [place] [address] Aug, [place] [address] [address] Jul, [place] [address] [address] Jul, Elevated blood sugar R73.9 a nd Neck pain M54.2 [place] [address] [address] Jul, [place] [address] [address] Jul, Onychomycosis B35.1 and DM n euro manif type II E11.49 [place] [address] [address] Jul, [place] [address] [address] June, Hyperlipidemia E78.5 [place] [address] [address] June, Diabetes mellitus E11.9 ; CA D (coronary artery disease) I25.10 ; Arthritis M19.90 and Hyperlipidemia E78.5 [place] [address] [address] June, [place] [address] [address] Apr, Onychomycosis B35.1 ; DM chuck ro manif type II E11.49 and Hammertoe M20.40 [place] [address] [address] Apr, Diabetes mellitus E11.9 and Hypertension I10 [place] [address] [address] Mar, Hypertension I10 and Diabete s mellitus E11.9 [place] [address] [address] Mar, Hypertension I10 and Diabete s mellitus E11.9 [place] [id number] [facility] [id number] [address] [place] [address] Jan, Onychomycosis B35.1 and DM n euro manif type II E11.49 [place] [address] [address] [place] [id number] [address] [place] [address] Dec, [place] [address] [address] Dec, [place] [address] [place] [id number] [place] [address] Dec, Hypertension I10 and Diabete s mellitus E11.9 [place] [address] [address] [place] [id number] [place] [address] Oct, Encounter for immunization Z 23 ; Diabetes mellitus E11.9 ; Hypertension I10 and Cigarette nicotine dependence with nicotine-induced disorder F17.219 [place] [address] [place] [address] Oct, Diabetes mellitus E11.9 [place] [address] [address] Oct, Onychomycosis B35.1 ; DM chuck ro manif type II E11.49 and Hammertoe M20.40 [place] [address] [place] [address] Jul, Diabetes mellitus E11.9 [place] [address] [address] [place] [id number] [address] [place] [address] Jul, Onychomycosis B35.1 ; Hammer toe M20.40 and DM neuro manif type II E11.49 [place] [address] [address] [place] [id number] [address] [place] [address] May, Diabetes mellitus E11.9 [place] [address] [place] [id number] [address] [place] [address] May, Diabetes mellitus E11.9 [place] [address] [address] Nov, Diabetes mellitus E11.9 ; Hy pertension I10 ; Reactive depression F32.9 and Encounter for immunization Z23 [place] [address] [place] [address] Oct, Ulcer of other part of foot L97.[address] [address] Sep, Onychomycosis B35.1 ; Ulcer of heel, left, with unspecified severity L97.429 and DM neuro manif type II E11.[address] [address] Sep, [address] [address] Sep, Ulcer of heel, left, with un specified severity L97.[address] [address] Aug, Onychomycosis B35.1 ; Ulcer of heel, left, with unspecified severity L97.429 and DM neuro manif type II E11.[address] [address] Jul, Diabetes mellitus E11.9 ; Hy pertension I10 ; Cigarette nicotine dependence with nicotine-induced disorder F17.219 and CAD (coronary artery disease) I25.[address] [address] Jul, Left leg claudication I73.9 ; Right leg claudication I73.9 ; CAD (coronary artery disease) I25.10 ; Hypertension I10 and Hyperlipidemia E78.[address] [address] Jul, Ulcer of heel, left, with un specified severity L97.429 and DM neuro manif type II E11.49 [place] [id number] [place] [address] June, Ulcer of heel, left, with un specified severity L97.429 and Ulcer of other part of foot L97.509 [facility] [address] [place] [id number] [address] [place] [address] June, Ulcer of heel, left, with un specified severity L97.429 and Ulcer of foot, left, with unspecified severity L97.529 [place] [address] [place] [id number] [address] [place] [address] May, [place] [address] [address] [place] [id number] [place] [address] May, [place] [address] [address] [place] [id number] [place] [address] Apr, DM neuro manif type II E11.4 9 ; Hypertension I10 and Sleep apnea in adult G47.33 [place] [address] [address] [place] [id number] [address] [place] [address] Apr, [place] [address] [address] [facility] [id number] [address] [place] [address] Apr, Ulcer of foot L97.509 and DM neuro manif type II E11.49 [place] [address] [address] [place] [id number] [address] [place] [address] Apr, Ulcer of other part of foot L97.509 and DM neuro manif type II E11.49 [place] [address] [address] [place] [id number] [address] [place] [address] Apr, Onychomycosis B35.1 ; Ingrow n toenail L60.0 ; Impaired circulation I99.9 and DM neuro manif type II E11.49 [place] [address] [address] [place] [id number] [address] [place] [address] Mar, Ulcer of other part of foot L97.509 ; Onychomycosis B35.1 and Diabetes mellitus E11.9 [place] [address] [address] [place] [id number] [address] [place] [address] Dec, Encounter for immunization Z 23 ; Hypertension I10 and Diabetes mellitus E11.9 [facility] [address] [address] Dec, [facility] [address] [address] Dec, CAD (coronary artery disease ) I25.10 ; Hypertension I10 ; Left leg claudication I73.9 and Hyperlipidemia E78.5 [place] [address] [address] Nov, Onychomycosis B35.1 and Vin ertoe M20.40 [place] [address] [address] Sep, Coronary atherosclerosis of unspecified type of vessel, naknek or graft 414.00 [place] [address] [address] Sep, Coronary atherosclerosis of unspecified type of vessel, naknek or graft 414.00 and Diabetes 250.00 [place] [address] [address] May, [facility] [address] [address] May, [facility] [address] [address] Apr, [facility] [address] [address] Apr, [facility] [address] [address] Apr, [facility] [address] [address] Apr, [facility] [address] [address] Mar, [facility] [address] [id number] [address] [place] [address], [place] [address] Mar, [facility] [address] [id number] [address] [place] [address], [place] [address] Jan, [facility] [address] [id number] [address] [place] [address], [place] [address] Jan, [facility] [address] [id number] [address] [place] [address], [place] [address] Jan, [facility] [address] [id number] [address] [place] [address], [place] [address] Jan, [facility] [address] [id number] [address] [place] [address], [place] [address] Jan, [facility] [address] [id number] [address] [place] [address], [place] [address] Jan, [facility] [address] [id number] [address] [place] [address], [place] [address] Jan, [facility] [address] [id number] [address] [place] [address], [place] [address] Jan, [facility] [address] [id number] [address] [place] [address], [place] [address] Jan, [facility] [address] [id number] [address] [place] [address], [place] [address] Jan, [facility] [address] [id number] [address] [place] [address], [place] [address] Jan, [facility] [address] [id number] [address] [place] [address], [place] [address] Nov, [facility] [address] [id number] [address] [place] [address], [place] [address] Nov, [facility] [address] [id number] [address] [place] [address], [place] [address] Nov, [facility] [address] [id number] [address] [place] [address], [place] [address] Nov, [facility] [address] [id number] [address] [place] [address], [place] [address] 15 Nov, 2013 [facility] [address] [id number] [address] [place] [address], [place] [address] 15 Nov, 2013 [facility] [address] [id number] [address] [place] [address], [place] [address] 19 Oct, 2013 [facility] [address] [id number] [address] [place] [address], [place] [address] 19 Oct, 2013 [facility] [address] [id number] [address] [place] [address], [place] [address] 19 Oct, 2013 [facility] [address] [id number] [address] [place] [address], [place] [address] 19 Oct, 2013 [facility] [address] [id number] [address] [place] [address], [place] [address] 05 Oct, 2013 [facility] [address] [id number] [address] [place] [address], [place] [address] 05 Oct, 2013 [facility] [address] [id number] [address] [place] [address], [place] [address] Sep, [facility] [address] [id number] [address] [place] [address], [place] [address] Sep, [facility] [address] [id number] [address] [place] [address], [place] [address] Sep, [facility] [address] [id number] [address] [place] [address], [place] [address] Sep, [facility] [address] [id number] [address] [place] [address], [place] [address] Sep, [facility] [address] [id number] [address] [place] [address], [place] [address] Sep, [facility] [address] [id number] [address] [place] [address], [place] [address] Aug, [facility] [address] [id number] [facility] [place] [address] Aug, [facility] [address] [id number] [address] [place] [address], [place] [address] Aug, [facility] [address] [id number] [facility] [place] [address] Aug, [facility] [address] [id number] [address] [place] [address], [place] [address] Aug, [facility] [address] [id number] [address] [place] [address], [place] [address] Aug, [facility] [address] [id number] [address] [place] [address], [place] [address] Jul, [facility] [address] [id number] [address] [place] [address], [place] [address] Jul, [facility] [address] [id number] [address] [place] [address], [place] [address] Jul, [facility] [address] [id number] [address] [place] [address], [place] [address] Jul, [facility] [address] [id number] [address] [place] [address], [place] [address] June, [facility] [address] [id number] [address] [place] [address], [place] [address] June, [facility] [address] [id number] [address] [place] [address], [place] [address] June, [facility] [address] [id number] [address] [place] [address], [place] [address] June, [facility] [address] [id number] [address] [place] [address], [place] [address] May, [facility] [address] [id number] [address] [place] [address], [place] [address] May, [facility] [address] [id number] [address] [place] [address], [place] [address] May, [facility] [address] [id number] [address] [place] [address], [place] [address] May, [facility] [address] [id number] [address] [place] [address], [place] [address] May, [facility] [address] [id number] [address] [place] [address], [place] [address] May, [facility] [address] [id number] [address] [place] [address], [place] [address] Apr, [facility] [address] [id number] [address] [place] [address], [place] [address] Apr, [facility] [address] [id number] [address] [place] [address], [place] [address] Apr, [facility] [address] [id number] [address] [place] [address], [place] [address] Apr, [facility] [address] [id number] [address] [place] [address], [place] [address] Apr, [facility] [address] [id number] [address] [place] [address], [place] [address] Apr, [facility] [address] [id number] [address] [place] [address], [place] [address] Apr, [facility] [address] [id number] [address] [place] [address], [place] [address] Jan, [facility] [address] [id number] [address] [place] [address], [place] [address] Jan, [facility] [address] [id number] [address] [place] [address], [place] [address] Jan, [facility] [address] [id number] [address] [place] [address], [place] [address] Jan, [facility] [address] [id number] [address] [place] [address], [place] [address] Jan, [facility] [address] [id number] [address] [place] [address], [place] [address] Jan, [facility] [address] [id number] [address] [place] [address], [place] [address] Dec, [facility] [address] [id number] [address] [place] [address] Dec, [facility] [address] [id number] [address] [place] [address], [place] [address] Dec, [facility] [address] [id number] [address] [place] [address], [place] [address] Dec, [facility] [address] [id number] [address] [place] [address], [place] [address] Dec, [facility] [address] [id number] [address] [place] [address], [place] [address] Dec, [facility] [address] [id number] [address] [place] [address], [place] [address] Nov, [facility] [address] [id number] [address] [place] [address], [place] [address] Oct, [facility] [address] [id number] [address] [place] [address], [place] [address] Oct, [facility] [address] [id number] [address] [place] [address] Aug, [facility] [address] [id number] [address] [place] [address], [place] [address] Aug, [facility] [address] [id number] [address] [place] [address] Jul, [facility] [address] [id number] [address] [place] [address], [place] [address] June, [facility] [address] [id number] [address] [place] [address] Apr, [facility] [address] [id number] [address] [place] [address] Apr, [facility] [address] [id number] [address] [place] [address], [place] [address] 08 Apr, 2012 [facility] [address] [id number] [address] [place] [address], [place] [address] Apr, [facility] [address] [id number] [address] [place] [address], [place] [address] Mar, [facility] [address] [id number] [address] [place] [address], [place] [address] Jan, [facility] [address] [id number] [address] [place] [address], [place] [address] Jan, [facility] [address] [id number] [address] [place] [address], [place] [address] Jan, [facility] [address] [id number] [address] [place] [address], [place] [address] Jan, [facility] [address] [id number] [address] [place] [address], [place] [address] Jan, [facility] [address] [id number] [address] [place] [address], [place] [address] Jan, [facility] [address] [id number] [address] [place] [address], [place] [address] Jan, [facility] [address] [id number] [address] [place] [address], [place] [address] Jan, [facility] [address] [id number] [address] [place] [address], [place] [address] Nov, [facility] [address] [id number] [address] [place] [address], [place] [address] Nov, [facility] [address] [id number] [address] [place] [address], [place] [address] Nov, [facility] [address] [id number] [address] [place] [address], [place] [address] Nov, [facility] [address] [id number] [address] [place] [id number] 17 Nov, 2011 [facility] [address] [id number] [address] [place] [id number] Sep, [facility] [address] [id number] [address] [place] [id number] 14 Aug, 2011 [facility] [address] [id number] [address] [place] [id number] 14 Aug, 2011 [facility] [address] [id number] [address] [place] [id number] 14 Aug, 2011 [facility] [address] [id number] [address] [place] [phone] Jul, [facility] [address] [id number] [address] [place] [phone] 13 Aug, 2011 [facility] [address] [id number] [address] [place] [phone] Apr, [facility] [address] [id number] [address] [place] [phone] 16 Apr, 2011 [facility] [address] [id number] [address] [place] [phone] Apr, [facility] [address] [id number] [address] [place] [id number] Mar, [facility] [address] [id number] [address] [place] [phone] Mar, [facility] [address] [id number] [address] [place] [phone] Dec, [facility] [address] [id number] [address] [place] [phone] Dec, [facility] [address] [id number] [address] [place] [id number] Dec, IMMUNIZATIONS No Known Immunizations SOCIAL HISTORY Never Assessed REASON FOR VISIT EMR-[facility] PLAN OF CARE VITAL SIGNS MEDICATIONS Medication Instructions Dosage Frequency Start Date End Date Duration S tatus Viagra 50 mg 1 tablet by Oral route 1 time per day 2012 Active Bactrim DS 800-160 mg 1 tablet by Oral route 2 times p er day for 10 day(s) Dec, Active Neurontin 300 mg 1 capsule by Oral route 3 times per d ay PRN for pain Mar, Active metformin 500 mg take 1 tablet by Ora l route 2 times per day with morning and evening meals for diabetes Apr, Active RESULTS No Results PROCEDURES No Known [...]
--- OUTSIDE RECORDS SUMMARY | 2019-06-21 16:33 | XMS REPORT ---
Author Author Nick ABDI Organization [facility] Address [address] [place] [address] Care Team Providers Care Chief Green Officer Name Role Phone ELVIN ABDI Unavailable PROBLEMS Type Condition ICD9-CM Code NEQ89-[place] Code Onset Dates Condition S tatus SNOMED Code Problem Hyperlipidemia E78.5 Active 22823 004 Problem DM neuro manif type II E11.49 Active 52678724 Problem Diabetes mellitus E11.9 Active 73 916766 Problem Left leg claudication I73.9 Active 285755527 Problem CAD (coronary artery disease) I25.10 Active 07318958 Problem Hypertension I10 Active 5381381 3 Problem Hypoglycemia E16.2 Active 0222356 03 Problem Arthritis M19.90 Active 8834909 Problem Cigarette nicotine dependence with nicotine-induced di sorder F17.219 Active 51577478 Problem Impaired circulation I99.9 Active 67383346 Problem Hammertoe M20.40 Active 907122091 Problem Reactive depression F32.9 Active 71827075 ALLERGIES No Information ENCOUNTERS Encounter Location Date Diagnosis [facility] [address] [facility] [id number] [address] [place] [phone] Jan, [facility] [address] [facility] [id number] [address] [place] [address] Jan, [facility] [address] [facility] [id number] [address] [place] [phone] Jan, Diabetes mellitus E11.9 [facility] [address] [facility] [id number] [address] [place] [phone] Jan, [facility] [address] [facility] [id number] [address] [place] [phone] Jan, [facility] [address] [facility] [id number] [address] [place] [address] Oct, Onychomycosis B35.1 ; DM chuck ro manif type II E11.49 and Impaired circulation I99.9 [facility] [address] [facility] [id number] [address] [place] [phone] Sep, [facility] [address] [facility] [id number] [address] [place] [phone] Aug, Hypoglycemia E16.2 [facility] [address] [place] [id number] [place] [address] Aug, [facility] [address] [facility] [id number] [address] [place] [phone] Jul, [facility] [address] [place] [id number] [place] [address] Jul, Elevated blood sugar R73.9 a nd Neck pain M54.2 [place] [address] [place] [id number] [place] [address] Jul, [facility] [address] [place] [id number] [place] [address] Jul, Onychomycosis B35.1 and DM n euro manif type II E11.49 [facility] [address] [place] [id number] [address] [place] [phone] Jul, [facility] [address] [place] [id number] [address] [place] [phone] June, Hyperlipidemia E78.5 [facility] [address] [place] [id number] [address] [place] [phone] June, Diabetes mellitus E11.9 ; CA D (coronary artery disease) I25.10 ; Arthritis M19.90 and Hyperlipidemia E78.5 [facility] [address] [facility] [id number] [address] [place] [address] June, [facility] [address] [facility] [id number] [address] [place] [address] Apr, Onychomycosis B35.1 ; DM chuck ro manif type II E11.49 and Hammertoe M20.40 [facility] [address] [facility] [id number] [address] [place] [address] Apr, Diabetes mellitus E11.9 and Hypertension I10 [facility] [address] [facility] [id number] [address] [place] [address] Mar, Hypertension I10 and Diabete s mellitus E11.9 [facility] [address] [place] [id number] [address] [place] [address] Mar, Hypertension I10 and Diabete s mellitus E11.9 [place] [address] [facility] [id number] [address] [place] [phone] Jan, Onychomycosis B35.1 and DM n euro manif type II E11.49 [place] [address] [facility] [id number] [address] [place] [phone] Dec, [place] [address] [place] [id number] [place] [address] Dec, [place] [address] [facility] [id number] [address] [place] [address] Dec, Hypertension I10 and Diabete s mellitus E11.9 [place] [address] [place] [id number] [address] [place] [phone] Oct, Encounter for immunization Z 23 ; Diabetes mellitus E11.9 ; Hypertension I10 and Cigarette nicotine dependence with nicotine-induced disorder F17.219 [place] [address] [facility] [id number] [address] [place] [phone] Oct, Diabetes mellitus E11.9 [place] [address] [facility] [id number] [address] [place] [address] Oct, Onychomycosis B35.1 ; DM chuck ro manif type II E11.49 and Hammertoe M20.40 [facility] [address] [facility] [id number] [address] [place] [address] Jul, Diabetes mellitus E11.9 [place] [address] [address] Jul, Onychomycosis B35.1 ; Hammer toe M20.40 and DM neuro manif type II E11.49 [place] [address] [address] May, Diabetes mellitus E11.[address] [address] May, Diabetes mellitus E11.9 [place] [address] [address] Nov, Diabetes mellitus E11.9 ; Hy pertension I10 ; Reactive depression F32.9 and Encounter for immunization Z23 [place] [address] [address] Oct, Ulcer of other part of foot L97.[address] [address] Sep, Onychomycosis B35.1 ; Ulcer of heel, left, with unspecified severity L97.429 and DM neuro manif type II E11.49 [place] [address] [address] Sep, [address] [address] Sep, Ulcer of heel, left, with un specified severity L97.429 [place] [address] [address] Aug, Onychomycosis B35.1 ; Ulcer of heel, left, with unspecified severity L97.429 and DM neuro manif type II E11.[address] [address] Jul, Diabetes mellitus E11.9 ; Hy pertension I10 ; Cigarette nicotine dependence with nicotine-induced disorder F17.219 and CAD (coronary artery disease) I25.10 [address] [place] [address] Jul, Left leg claudication I73.9 ; Right leg claudication I73.9 ; CAD (coronary artery disease) I25.10 ; Hypertension I10 and Hyperlipidemia E78.5 [facility] [address] [facility] [id number] [address] [place] [address] Jul, Ulcer of heel, left, with un specified severity L97.429 and DM neuro manif type II E11.49 [facility] [address] [facility] [id number] [address] [place] [address] June, Ulcer of heel, left, with un specified severity L97.429 and Ulcer of other part of foot L97.509 [place] [id number] [facility] [id number] [address] [place] [address] June, Ulcer of heel, left, with un specified severity L97.429 and Ulcer of foot, left, with unspecified severity L97.529 [place] [id number] [facility] [id number] [address] [place] [address] May, [facility] [address] [facility] [id number] [address] [place] [address] May, [facility] [address] [place] [id number] [address] [place] [phone] Apr, DM neuro manif type II E11.4 9 ; Hypertension I10 and Sleep apnea in adult G47.33 [facility] [address] [facility] [id number] [address] [place] [address] Apr, [facility] [address] [facility] [id number] [address] [place] [phone] Apr, Ulcer of foot L97.509 and DM neuro manif type II E11.49 [facility] [address] [facility] [id number] [address] [place] [address] Apr, Ulcer of other part of foot L97.509 and DM neuro manif type II E11.49 [facility] [address] [facility] [id number] [address] [place] [address] Apr, Onychomycosis B35.1 ; Ingrow n toenail L60.0 ; Impaired circulation I99.9 and DM neuro manif type II E11.[address] [address] 08 Mar, 2015 Ulcer of other part of foot L97.509 ; Onychomycosis B35.1 and Diabetes mellitus E11.[address] [address] Dec, Encounter for immunization Z 23 ; Hypertension I10 and Diabetes mellitus E11.[address] [address] Dec, [address] [address] Dec, CAD (coronary artery disease ) I25.10 ; Hypertension I10 ; Left leg claudication I73.9 and Hyperlipidemia E78.[address] [address] Nov, Onychomycosis B35.1 and Vin ertoe M20.[address] [address] Sep, Coronary atherosclerosis of unspecified type of vessel, [place] or graft 414.[address] [address] Sep, Coronary atherosclerosis of unspecified type of vessel, [place] or graft 414.00 and Diabetes 250.00 [place] [address] [address] May, [address] [address] May, [place] [address] [address] Apr, [address] [place] [address] Apr, [facility] [address] [id number] [address] [place] [address], [place] [address] Apr, [facility] [address] [id number] [address] [place] [address], [place] [address] Apr, [facility] [address] [id number] [address] [place] [address], [place] [address] Mar, [facility] [address] [id number] [address] [place] [address], [place] [address] Mar, [facility] [address] [id number] [address] [place] [address], [place] [address] Jan, [facility] [address] [id number] [address] [place] [address], [place] [address] Jan, [facility] [address] [id number] [address] [place] [address], [place] [address] Jan, [facility] [address] [id number] [address] [place] [address], [place] [address] Jan, [facility] [address] [id number] [address] [place] [address], [place] [address] Jan, [facility] [address] [id number] [address] [place] [address], [place] [address] Jan, [facility] [address] [id number] [address] [place] [address], [place] [address] Jan, [facility] [address] [id number] [address] [place] [address], [place] [address] Jan, [facility] [address] [id number] [address] [place] [address], [place] [address] Jan, [facility] [address] [id number] [address] [place] [address], [place] [address] Jan, [facility] [address] [id number] [address] [place] [address], [place] [address] Jan, [facility] [address] [id number] [address] [place] [address], [place] [address] Nov, [facility] [place] [facility] [address] [id number] [address] [place] [address], [place] [address] Nov, [facility] [address] [id number] [address] [place] [address], [place] [address] Nov, [facility] [place] [facility] [address] [id number] [address] [place] [address], [place] [address] Nov, [facility] [address] [id number] [address] [place] [address], [place] [address] Nov, [facility] [address] [id number] [address] [place] [address], [place] [address] Nov, [facility] [address] [id number] [address] [place] [address], [place] [address] Oct, [facility] [place] [facility] [address] [id number] [address] [place] [address], [place] [address] Oct, [facility] [address] [id number] [address] [place] [address], [place] [address] Oct, [facility] [address] [id number] [address] [place] [address], [place] [address] Oct, [facility] [place] [facility] [address] [id number] [address] [place] [address], [place] [address] Oct, [facility] [place] [facility] [address] [id number] [address] [place] [address] 05 Oct, 2013 [facility] [place] [facility] [address] [id number] [address] [place] [address], [place] [address] Sep, [facility] [place] [facility] [address] [id number] [address] [place] [address], [place] [address] Sep, [facility] [place] [facility] [address] [id number] [address] [place] [address], [place] [address] Sep, [facility] [place] [facility] [address] [id number] [address] [place] [address] Sep, [facility] [address] [id number] [address] [place] [address], [place] [address] Sep, [facility] [place] [facility] [address] [id number] [address] [place] [address], [place] [address] Sep, [facility] [address] [id number] [address] [place] [address], [place] [address] Aug, [facility] [place] [facility] [address] [id number] [address] [place] [address], [place] [address] Aug, [facility] [address] [id number] [address] [place] [address], [place] [address] Aug, [facility] [address] [id number] [address] [place] [address], [place] [address] Aug, [facility] [address] [id number] [address] [place] [address], [place] [address] Aug, [facility] [address] [id number] [address] [place] [address], [place] [address] Aug, [facility] [address] [id number] [address] [place] [address], [place] [address] Jul, [facility] [address] [id number] [address] [place] [address], [place] [address] Jul, [facility] [place] [facility] [address] [id number] [address] [place] [address], [place] [address] Jul, [facility] [place] [facility] [address] [id number] [address] [place] [address], [place] [address] Jul, [facility] [place] [facility] [address] [id number] [address] [place] [address], [place] [address] June, [facility] [place] [facility] [address] [id number] [address] [place] [address], [place] [address] June, [facility] [place] [facility] [address] [id number] [address] [place] [address], [place] [address] June, [facility] [place] [facility] [address] [id number] [address] [place] [address], [place] [address] June, [facility] [address] [id number] [address] [place] [address], [place] [address] May, [facility] [address] [id number] [address] [place] [address], [place] [address] May, [facility] [address] [id number] [address] [place] [address], [place] [address] May, [facility] [address] [id number] [address] [place] [address], [place] [address] May, [facility] [address] [id number] [address] [place] [address], [place] [address] May, [facility] [address] [id number] [address] [place] [address], [place] [address] May, [facility] [address] [id number] [address] [place] [address], [place] [address] Apr, [facility] [address] [id number] [address] [place] [address], [place] [address] Apr, [facility] [address] [id number] [address] [place] [address], [place] [address] Apr, [facility] [address] [id number] [address] [place] [address], [place] [address] Apr, [facility] [place] [facility] [address] [id number] [address] [place] [address], [place] [address] Apr, [facility] [address] [id number] [address] [place] [address], [place] [address] Apr, [facility] [place] [facility] [address] [id number] [address] [place] [address], [place] [address] Apr, [facility] [address] [id number] [address] [place] [address], [place] [address] Jan, [facility] [place] [facility] [address] [id number] [address] [place] [address], [place] [address] Jan, [facility] [address] [id number] [address] [place] [address], [place] [address] Jan, [facility] [address] [id number] [address] [place] [address], [place] [address] Jan, [facility] [address] [id number] [address] [place] [address], [place] [address] Jan, [facility] [address] [id number] [address] [place] [address], [place] [address] Jan, [facility] [address] [id number] [address] [place] [address], [place] [address] Dec, [facility] [address] [id number] [address] [place] [address], [place] [address] Dec, [facility] [address] [id number] [address] [place] [address], [place] [address] Dec, [facility] [address] [id number] [address] [place] [address], [place] [address] Dec, [facility] [address] [id number] [address] [place] [address], [place] [address] Dec, [facility] [address] [id number] [address] [place] [address], [place] [address] Dec, [facility] [address] [id number] [address] [place] [address] Nov, [facility] [place] [facility] [address] [id number] [address] [place] [address] Oct, [facility] [address] [id number] [address] [place] [address], [place] [address] Oct, [facility] [place] [facility] [address] [id number] [address] [place] [address] Aug, [facility] [address] [id number] [address] [place] [address] Aug, [facility] [address] [id number] [address] [place] [address], [place] [address] Jul, [facility] [address] [id number] [address] [place] [address], [place] [address] June, [facility] [address] [id number] [address] [place] [address], [place] [address] Apr, [facility] [address] [id number] [address] [place] [address], [place] [address] Apr, [facility] [address] [id number] [address] [place] [address], [place] [address] Apr, [facility] [address] [id number] [address] [place] [address], [place] [address] Apr, [facility] [address] [id number] [address] [place] [address], [place] [address] Mar, [facility] [address] [id number] [address] [place] [address], [place] [address] Jan, [facility] [address] [id number] [address] [place] [address], [place] [address] Jan, [facility] [address] [id number] [address] [place] [address], [place] [address] Jan, [facility] [address] [id number] [address] [place] [address], [place] [address] Jan, [facility] [address] [id number] [address] [place] [address], [place] [address] Jan, [facility] [address] [id number] [address] [place] [address], [place] [address] Jan, [facility] [address] [id number] [address] [place] [address], [place] [address] Jan, [facility] [address] [id number] [address] [place] [address], [place] [address] Jan, [facility] [address] [id number] [address] [place] [address], [place] [address] Nov, [facility] [address] [id number] [address] [place] [address], [place] [address] 16 Dec, 2011 [facility] [address] [id number] [address] [place] [address], [place] [address] 16 Dec, 2011 [facility] [address] [id number] [address] [place] [address], [place] [address] 16 Dec, 2011 [facility] [address] [id number] [address] [place] [address], [place] [address] 17 Nov, 2011 [facility] [address] [id number] [address] [place] [address], [place] [address] 24 Oct, 2011 [facility] [address] [id number] [address] [place] [address], [place] [address] 14 Aug, 2011 [facility] [address] [id number] [address] [place] [address], [place] [address] 14 Aug, 2011 [facility] [address] [id number] [address] [place] [address], [place] [address] 14 Aug, 2011 [facility] [address] [id number] [address] [place] [address], [place] [address] 13 Aug, 2011 [facility] [address] [id number] [address] [place] [address], [place] [address] 13 Aug, 2011 [facility] [address] [id number] [address] [place] [address], [place] [address] Apr, [facility] [address] [id number] [address] [place] [address], [place] [address] 16 Apr, 2011 [facility] [address] [id number] [address] [place] [address], [place] [address] 16 Apr, 2011 [facility] [address] [id number] [address] [place] [address], [place] [address] Mar, [facility] [address] [id number] [address] [place] [address], [place] [address] Mar, [facility] [address] [id number] [address] [place] [id number] Dec, [facility] [address] [facility] [id number] [address] [place] [id number] Dec, [facility] [address] [facility] [id number] [address] [place] [id number] Dec, IMMUNIZATIONS No Known Immunizations SOCIAL HISTORY Never Assessed REASON FOR VISIT medication refill PLAN OF CARE VITAL SIGNS MEDICATIONS Medication Instructions Dosage Frequency Start Date End Date Duration S tatus Metformin HCl 1000 MG Orally twice a day 1 tablet with a meal 12h June, 30 day(s) Active Gabapentin 300 MG Orally Three times a day 1 capsule 8h 30 Active RESULTS No Results PROCEDURES No Known [...]
--- OUTSIDE RECORDS SUMMARY | 2019-06-21 16:34 | XMS REPORT ---
Author Author Nick SEALS Organization [facility] Address [address], [place] [id number] Care Team Providers Care Disintegrator Operator Name Role Phone JOSE SEALS Unavailable PROBLEMS Type Condition ICD9-CM Code [id number] Code Onset Dates Condition S tatus SNOMED Code Problem Hyperlipidemia E78.5 Active 12418 004 Problem DM neuro manif type II E11.49 Active 15194370 Problem Diabetes mellitus E11.9 Active 73 235462 Problem Left leg claudication I73.9 Active 910092377 Problem CAD (coronary artery disease) I25.10 Active 88730130 Problem Hypertension I10 Active 0747109 3 Problem Hypoglycemia E16.2 Active 9624963 03 Problem Arthritis M19.90 Active 6691324 Problem Cigarette nicotine dependence with nicotine-induced di sorder F17.219 Active 39710929 Problem Impaired circulation I99.9 Active 72416132 Problem Hammertoe M20.40 Active 448406559 Problem Reactive depression F32.9 Active 57155840 ALLERGIES No Information ENCOUNTERS Encounter Location Date Diagnosis [facility] [address] [facility] [id number] [address] [place] [id number] Jan, [facility] [address] [facility] [id number] [address] [place] [id number] Oct, [facility] [address] [facility] [id number] [address] [place] [id number] Sep, [facility] [address] [facility] [id number] [address] [place] [id number] Sep, [facility] [address] [facility] [id number] [address] [place] [id number] Aug, Hypoglycemia E16.2 [facility] [address] [facility] [id number] [address] [place] [address] Aug, [place] [address] [address] Jul, [place] [address] [address] Jul, Elevated blood sugar R73.9 a nd Neck pain M54.2 [place] [address] [address] Jul, [place] [address] [address] Jul, Onychomycosis B35.1 and DM n euro manif type II E11.49 [place] [address] [address] Jul, [place] [address] [address] June, Hyperlipidemia E78.5 [place] [address] [address] June, Diabetes mellitus E11.9 ; CA D (coronary artery disease) I25.10 ; Arthritis M19.90 and Hyperlipidemia E78.5 [place] [address] [address] June, [place] [address] [address] Apr, Onychomycosis B35.1 ; DM chuck ro manif type II E11.49 and Hammertoe M20.40 [place] [address] [address] Apr, Diabetes mellitus E11.9 and Hypertension I10 [place] [address] [address] Mar, Hypertension I10 and Diabete s mellitus E11.9 [place] [address] [address] Mar, Hypertension I10 and Diabete s mellitus E11.9 [place] [address] [place] [id number] [address] [place] [address] Jan, Onychomycosis B35.1 and DM n euro manif type II E11.49 [facility] [address] [place] [id number] [address] [place] [address] Dec, [place] [address] [address] Dec, [place] [address] [place] [id number] [place] [address] Dec, Hypertension I10 and Diabete s mellitus E11.9 [place] [address] [address] Oct, Encounter for immunization Z 23 ; Diabetes mellitus E11.9 ; Hypertension I10 and Cigarette nicotine dependence with nicotine-induced disorder F17.219 [place] [address] [address] Oct, Diabetes mellitus E11.9 [place] [address] [address] Oct, Onychomycosis B35.1 ; DM chuck ro manif type II E11.49 and Hammertoe M20.40 [place] [address] [address] Jul, Diabetes mellitus E11.9 [place] [address] [place] [address] Jul, Onychomycosis B35.1 ; Hammer toe M20.40 and DM neuro manif type II E11.49 [place] [address] [place] [id number] [address] [place] [address] May, Diabetes mellitus E11.9 [place] [address] [place] [address] May, Diabetes mellitus E11.9 [place] [address] [address] Nov, Diabetes mellitus E11.9 ; Hy pertension I10 ; Reactive depression F32.9 and Encounter for immunization Z23 [place] [address] [address] Oct, Ulcer of other part of foot L97.[address] [address] Sep, Onychomycosis B35.1 ; Ulcer of heel, left, with unspecified severity L97.429 and DM neuro manif type II E11.[address] [address] Sep, [address] [address] Sep, Ulcer of heel, left, with un specified severity L97.[address] [address] Aug, Onychomycosis B35.1 ; Ulcer of heel, left, with unspecified severity L97.429 and DM neuro manif type II E11.[address] [address] Jul, Diabetes mellitus E11.9 ; Hy pertension I10 ; Cigarette nicotine dependence with nicotine-induced disorder F17.219 and CAD (coronary artery disease) I25.[address] [address] Jul, Left leg claudication I73.9 ; Right leg claudication I73.9 ; CAD (coronary artery disease) I25.10 ; Hypertension I10 and Hyperlipidemia E78.[address] [address] Jul, Ulcer of heel, left, with un specified severity L97.429 and DM neuro manif type II E11.[address] [place] [address] June, Ulcer of heel, left, with un specified severity L97.429 and Ulcer of other part of foot L97.509 [facility] [address] [place] [id number] [place] [address] June, Ulcer of heel, left, with un specified severity L97.429 and Ulcer of foot, left, with unspecified severity L97.529 [place] [address] [place] [id number] [address] [place] [address] May, [facility] [address] [place] [id number] [place] [address] May, [facility] [address] [place] [id number] [place] [address] Apr, DM neuro manif type II E11.4 9 ; Hypertension I10 and Sleep apnea in adult G47.33 [place] [address] [place] [id number] [address] [place] [address] Apr, [place] [address] [place] [id number] [place] [address] Apr, Ulcer of foot L97.509 and DM neuro manif type II E11.49 [place] [address] [place] [id number] [place] [address] Apr, Ulcer of other part of foot L97.509 and DM neuro manif type II E11.49 [place] [address] [place] [id number] [address] [place] [address] Apr, Onychomycosis B35.1 ; Ingrow n toenail L60.0 ; Impaired circulation I99.9 and DM neuro manif type II E11.49 [place] [address] [place] [id number] [address] [place] [address] Mar, Ulcer of other part of foot L97.509 ; Onychomycosis B35.1 and Diabetes mellitus E11.9 [place] [address] [place] [id number] [address] [place] [address] Dec, Encounter for immunization Z 23 ; Hypertension I10 and Diabetes mellitus E11.9 [place] [address] [address] Dec, [place] [address] [address] Dec, CAD (coronary artery disease ) I25.10 ; Hypertension I10 ; Left leg claudication I73.9 and Hyperlipidemia E78.5 [place] [address] [address] Nov, Onychomycosis B35.1 and Vin ertoe M20.40 [place] [address] [address] Sep, Coronary atherosclerosis of unspecified type of vessel, chemehuevi or graft 414.00 [place] [address] [address] Sep, Coronary atherosclerosis of unspecified type of vessel, chemehuevi or graft 414.00 and Diabetes 250.00 [place] [address] [place] [id number] [address] [place] [address] May, [place] [address] [address] May, [place] [address] [place] [id number] [address] [place] [address] Apr, [facility] [address] [place] [id number] [address] [place] [address] Apr, [facility] [address] [place] [id number] [address] [place] [address] Apr, [facility] [address] [place] [id number] [address] [place] [address] Apr, [facility] [address] [place] [id number] [address] [place] [address] Mar, [facility] [address] [id number] [address] [place] [address], [place] [address] Mar, [facility] [address] [id number] [address] [place] [address], [place] [address] Jan, [facility] [address] [id number] [address] [place] [address], [place] [address] Jan, [facility] [address] [id number] [address] [place] [address], [place] [address] Jan, [facility] [address] [id number] [address] [place] [address], [place] [address] Jan, [facility] [address] [id number] [address] [place] [address], [place] [address] Jan, [facility] [address] [id number] [address] [place] [address], [place] [address] Jan, [facility] [address] [id number] [address] [place] [address], [place] [address] Jan, [facility] [address] [id number] [address] [place] [address], [place] [address] Jan, [facility] [address] [id number] [address] [place] [address], [place] [address] Jan, [facility] [address] [id number] [address] [place] [address], [place] [address] Jan, [facility] [address] [id number] [address] [place] [address], [place] [address] Jan, [facility] [address] [id number] [address] [place] [address], [place] [address] Nov, [facility] [address] [id number] [address] [place] [address], [place] [address] Nov, [facility] [address] [id number] [address] [place] [address], [place] [address] Nov, [facility] [address] [id number] [address] [place] [address], [place] [address] Nov, [facility] [address] [id number] [address] [place] [address], [place] [address] 15 Nov, 2013 [facility] [address] [id number] [address] [place] [address], [place] [address] 15 Nov, 2013 [facility] [address] [id number] [address] [place] [address], [place] [address] 19 Oct, 2013 [facility] [address] [id number] [address] [place] [address], [place] [address] 19 Oct, 2013 [facility] [address] [id number] [address] [place] [address], [place] [address] Oct, [facility] [address] [id number] [address] [place] [address], [place] [address] Oct, [facility] [address] [id number] [address] [place] [address], [place] [address] Oct, [facility] [address] [id number] [address] [place] [address], [place] [address] 05 Oct, 2013 [facility] [address] [id number] [address] [place] [address], [place] [address] Sep, [facility] [address] [id number] [address] [place] [address], [place] [address] Sep, [facility] [address] [id number] [address] [place] [address], [place] [address] Sep, [facility] [address] [id number] [address] [place] [phone] Sep, [facility] [address] [id number] [address] [place] [address], [place] [address] Sep, [facility] [address] [id number] [address] [place] [address], [place] [address] Sep, [facility] [address] [id number] [address] [place] [address], [place] [address] Aug, [facility] [address] [id number] [address] [place] [address], [place] [address] Aug, [facility] [address] [id number] [facility] [place] [address] Aug, [facility] [address] [id number] [address] [place] [address], [place] [address] Aug, [facility] [address] [id number] [address] [place] [address], [place] [address] Aug, [facility] [address] [id number] [address] [place] [address], [place] [address] Aug, [facility] [address] [id number] [address] [place] [address], [place] [address] Jul, [facility] [address] [id number] [address] [place] [address], [place] [address] Jul, [facility] [address] [id number] [address] [place] [address], [place] [address] Jul, [facility] [address] [id number] [address] [place] [address], [place] [address] Jul, [facility] [address] [id number] [address] [place] [address], [place] [address] June, [facility] [address] [id number] [address] [place] [address], [place] [address] June, [facility] [address] [id number] [address] [place] [address], [place] [address] June, [facility] [address] [id number] [address] [place] [address], [place] [address] June, [facility] [address] [id number] [address] [place] [address], [place] [address] May, [facility] [address] [id number] [address] [place] [address], [place] [address] May, [facility] [address] [id number] [address] [place] [address], [place] [address] May, [facility] [address] [id number] [address] [place] [address], [place] [address] May, [facility] [address] [id number] [address] [place] [address], [place] [address] May, [facility] [address] [id number] [address] [place] [address], [place] [address] May, [facility] [address] [id number] [address] [place] [address], [place] [address] Apr, [facility] [address] [id number] [address] [place] [address], [place] [address] Apr, [facility] [address] [id number] [address] [place] [address], [place] [address] Apr, [facility] [address] [id number] [address] [place] [address], [place] [address] Apr, [facility] [address] [id number] [address] [place] [address], [place] [address] Apr, [facility] [address] [id number] [address] [place] [address], [place] [address] Apr, [facility] [address] [id number] [address] [place] [address], [place] [address] Apr, [facility] [address] [id number] [address] [place] [address], [place] [address] Jan, [facility] [address] [id number] [address] [place] [address], [place] [address] Jan, [facility] [address] [id number] [address] [place] [address], [place] [address] Jan, [facility] [address] [id number] [address] [place] [address], [place] [address] Jan, [facility] [address] [id number] [address] [place] [address], [place] [address] Jan, [facility] [address] [id number] [address] [address] Jan, [facility] [address] [id number] [address] [place] [address], [place] [address] Dec, [facility] [address] [id number] [address] [place] [address], [place] [address] Dec, [facility] [address] [id number] [address] [place] [address], [place] [address] Dec, [facility] [address] [id number] [address] [place] [address] Dec, [facility] [address] [id number] [address] [place] [address], [place] [address] Dec, [facility] [address] [id number] [address] [place] [address] Dec, [facility] [address] [id number] [address] [place] [address], [place] [address] Nov, [facility] [address] [id number] [address] [place] [address], [place] [address] Oct, [facility] [address] [id number] [address] [place] [address], [place] [address] Oct, [facility] [address] [id number] [address] [place] [address] Aug, [facility] [address] [id number] [address] [place] [address] Aug, [facility] [address] [id number] [address] [place] [address] Jul, [facility] [address] [id number] [address] [place] [address], [place] [address] June, [facility] [address] [id number] [address] [place] [address], [place] [address] Apr, [facility] [address] [id number] [address] [place] [address] Apr, [facility] [address] [id number] [address] [place] [address], [place] [address] 08 Apr, 2012 [facility] [address] [id number] [address] [place] [address], [place] [address] Apr, [facility] [address] [id number] [address] [place] [address], [place] [address] Mar, [facility] [address] [id number] [address] [place] [address], [place] [address] Jan, [facility] [address] [id number] [address] [place] [address], [place] [address] Jan, [facility] [address] [id number] [address] [place] [address], [place] [address] Jan, [facility] [address] [id number] [address] [place] [address], [place] [address] Jan, [facility] [address] [id number] [address] [place] [address], [place] [address] Jan, [facility] [address] [id number] [address] [place] [address], [place] [address] Jan, [facility] [address] [id number] [address] [place] [address], [place] [address] Jan, [facility] [address] [id number] [address] [place] [address], [place] [address] Jan, [facility] [address] [id number] [address] [place] [address], [place] [address] Nov, [facility] [address] [id number] [address] [place] [address], [place] [address] Nov, [facility] [address] [id number] [address] [place] [address], [place] [address] Nov, [facility] [address] [id number] [address] [place] [address], [place] [address] Nov, [facility] [address] [id number] [address] [place] [address], [place] [address] Oct, [facility] [address] [id number] [address] [place] [address] Sep, [facility] [address] [id number] [address] [place] [address] 14 Aug, 2011 [facility] [address] [id number] [address] [place] [id number] 14 Aug, 2011 [facility] [address] [id number] [address] [place] [id number] 14 Aug, 2011 [facility] [address] [id number] [address] [place] [id number] Jul, [facility] [address] [id number] [address] [place] [id number] Jul, [facility] [address] [id number] [address] [place] [phone] Apr, [facility] [address] [id number] [address] [place] [phone] 16 Apr, 2011 [facility] [address] [id number] [address] [place] [phone] Apr, [facility] [address] [id number] [address] [place] [id number] Mar, [facility] [address] [facility] [id number] [address] [place] [phone] Mar, [facility] [address] [id number] [address] [place] [phone] Dec, [facility] [address] [id number] [address] [place] [phone] Dec, [facility] [address] [facility] [id number] [address] [place] [id number] Dec, IMMUNIZATIONS No Known Immunizations SOCIAL HISTORY [...]
--- OUTSIDE RECORDS SUMMARY | 2019-06-21 16:34 | XMS REPORT ---
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 Name Role Phone ELVIN ABDI Unavailable PROBLEMS Type Condition ICD9-CM Code NAK28-RJ Code Onset Dates Condition S tatus SNOMED Code Problem Hyperlipidemia E78.5 Active 47813 004 Problem DM neuro manif type II E11.49 Active 21380714 Problem Diabetes mellitus E11.9 Active 73 825422 Problem Left leg claudication I73.9 Active 382124001 Problem CAD (coronary artery disease) I25.10 Active 14416967 Problem Hypertension I10 Active 2057175 3 Problem Hypoglycemia E16.2 Active 1096525 03 Problem Arthritis M19.90 Active 1520721 Problem Cigarette nicotine dependence with nicotine-induced di sorder F17.219 Active 68083535 Problem Impaired circulation I99.9 Active 97764299 Problem Hammertoe M20.40 Active 194004454 Problem Reactive depression F32.9 Active 02891753 ALLERGIES No Information ENCOUNTERS Encounter Location Date Diagnosis [facility] [address] [facility] [id number] [address] [place] [address] Jan, [facility] [address] [facility] [id number] [address] [place] [address] Oct, [facility] [address] [facility] [id number] [address] [place] [address] Sep, [facility] [address] [facility] [id number] [address] [place] [address] Aug, Hypoglycemia E16.2 [facility] [address] [facility] [id number] [address] [place] [address] Aug, [facility] [address] [facility] [id number] [address] [place] [address] Jul, [place] [address] [facility] [id number] [address] [place] [address] Jul, Elevated blood sugar R73.9 a nd Neck pain M54.2 [place] [address] [facility] [id number] [address] [place] [address] Jul, [place] [address] [place] [id number] [place] [address] Jul, Onychomycosis B35.1 and DM n euro manif type II E11.49 [place] [address] [facility] [id number] [address] [place] [address] Jul, [place] [address] [facility] [id number] [address] [place] [address] June, Hyperlipidemia E78.5 [place] [address] [place] [id number] [place] [address] June, Diabetes mellitus E11.9 ; CA D (coronary artery disease) I25.10 ; Arthritis M19.90 and Hyperlipidemia E78.5 [place] [address] [facility] [id number] [address] [place] [address] June, [place] [address] [place] [id number] [place] [address] Apr, Onychomycosis B35.1 ; DM chuck ro manif type II E11.49 and Hammertoe M20.40 [place] [address] [facility] [id number] [address] [place] [address] Apr, Diabetes mellitus E11.9 and Hypertension I10 [place] [address] [place] [id number] [address] [place] [address] Mar, Hypertension I10 and Diabete s mellitus E11.9 [place] [address] [place] [id number] [address] [place] [address] Mar, Hypertension I10 and Diabete s mellitus E11.9 [place] [address] [place] [id number] [address] [place] [address] Jan, Onychomycosis B35.1 and DM n euro manif type II E11.49 [facility] [address] [facility] [id number] [address] [place] [address] Dec, [place] [address] [facility] [id number] [address] [place] [address] Dec, [place] [address] [place] [id number] [address] [place] [address] Dec, Hypertension I10 and Diabete s mellitus E11.9 [place] [address] [place] [id number] [address] [place] [address] Oct, Encounter for immunization Z 23 ; Diabetes mellitus E11.9 ; Hypertension I10 and Cigarette nicotine dependence with nicotine-induced disorder F17.219 [place] [address] [place] [id number] [address] [place] [address] Oct, Diabetes mellitus E11.9 [place] [address] [place] [id number] [address] [place] [address] Oct, Onychomycosis B35.1 ; DM chuck ro manif type II E11.49 and Hammertoe M20.40 [place] [address] [facility] [id number] [address] [place] [address] Jul, Diabetes mellitus E11.9 [place] [address] [facility] [id number] [address] [place] [address] Jul, Onychomycosis B35.1 ; Hammer toe M20.40 and DM neuro manif type II E11.49 [place] [address] [facility] [id number] [address] [place] [address] May, Diabetes mellitus E11.9 [place] [address] [facility] [id number] [address] [place] [address] May, Diabetes mellitus E11.9 [facility] [address] [facility] [id number] [address] [place] [address] Nov, Diabetes mellitus E11.9 ; Hy pertension I10 ; Reactive depression F32.9 and Encounter for immunization Z23 [place] [address] [facility] [id number] [address] [place] [address] Oct, Ulcer of other part of foot L97.509 [place] [address] [facility] [id number] [address] [place] [address] Sep, Onychomycosis B35.1 ; Ulcer of heel, left, with unspecified severity L97.429 and DM neuro manif type II E11.49 [place] [address] [facility] [id number] [address] [place] [address] Sep, [place] [address] [facility] [id number] [place] [address] Sep, Ulcer of heel, left, with un specified severity L97.429 [place] [address] [place] [id number] [address] [place] [address] Aug, Onychomycosis B35.1 ; Ulcer of heel, left, with unspecified severity L97.429 and DM neuro manif type II E11.49 [place] [address] [facility] [id number] [address] [place] [address] Jul, Diabetes mellitus E11.9 ; Hy pertension I10 ; Cigarette nicotine dependence with nicotine-induced disorder F17.219 and CAD (coronary artery disease) I25.10 [place] [address] [place] [id number] [address] [place] [address] Jul, Left leg claudication I73.9 ; Right leg claudication I73.9 ; CAD (coronary artery disease) I25.10 ; Hypertension I10 and Hyperlipidemia E78.5 [place] [address] [facility] [id number] [address] [place] [address] Jul, Ulcer of heel, left, with un specified severity L97.429 and DM neuro manif type II E11.49 [place] [address] [facility] [id number] [address] [place] [address] June, Ulcer of heel, left, with un specified severity L97.429 and Ulcer of other part of foot L97.509 [facility] [address] [place] [id number] [address] [place] [address] June, Ulcer of heel, left, with un specified severity L97.429 and Ulcer of foot, left, with unspecified severity L97.529 [facility] [address] [place] [id number] [address] [place] [address] May, [facility] [address] [place] [id number] [address] [place] [address] May, [facility] [address] [place] [id number] [place] [address] Apr, DM neuro manif type II E11.4 9 ; Hypertension I10 and Sleep apnea in adult G47.33 [facility] [address] [address] Apr, [facility] [address] [place] [id number] [place] [address] Apr, Ulcer of foot L97.509 and DM neuro manif type II E11.49 [facility] [address] [place] [id number] [place] [address] Apr, Ulcer of other part of foot L97.509 and DM neuro manif type II E11.49 [facility] [address] [address] Apr, Onychomycosis B35.1 ; Ingrow n toenail L60.0 ; Impaired circulation I99.9 and DM neuro manif type II E11.49 [facility] [address] [facility] [id number] [address] [place] [address] Mar, Ulcer of other part of foot L97.509 ; Onychomycosis B35.1 and Diabetes mellitus E11.9 [facility] [address] [facility] [id number] [address] [place] [address] Dec, Encounter for immunization Z 23 ; Hypertension I10 and Diabetes mellitus E11.9 [facility] [address] [facility] [id number] [address] [place] [address] Dec, [facility] [address] [facility] [id number] [address] [place] [address] Dec, CAD (coronary artery disease ) I25.10 ; Hypertension I10 ; Left leg claudication I73.9 and Hyperlipidemia E78.5 [facility] [address] [id number] [address] [place] [address] Nov, Onychomycosis B35.1 and Vin ertoe M20.40 [facility] [address] [id number] [address] [place] [address] Sep, Coronary atherosclerosis of unspecified type of vessel, ekuk or graft 414.00 [facility] [address] [id number] [address] [place] [address] Sep, Coronary atherosclerosis of unspecified type of vessel, ekuk or graft 414.00 and Diabetes 250.00 [facility] [address] [id number] [address] [place] [address] May, [facility] [address] [id number] [address] [place] [address] May, [facility] [address] [id number] [address] [place] [address] Apr, [facility] [address] [id number] [address] [place] [address] Apr, [facility] [address] [id number] [address] [place] [address] Apr, [facility] [address] [id number] [address] [place] [address] Apr, [facility] [address] [facility] [id number] [address] [place] [address] Mar, [facility] [address] [id number] [address] [place] [address] Mar, [facility] [address] [id number] [address] [place] [address], [place] [address] Jan, [facility] [address] [id number] [address] [place] [address], [place] [address] Jan, [facility] [address] [id number] [address] [place] [address], [place] [address] Jan, [facility] [address] [id number] [address] [place] [address], [place] [address] Jan, [facility] [address] [id number] [address] [place] [address], [place] [address] Jan, [facility] [address] [id number] [address] [place] [address], [place] [address] Jan, [facility] [address] [id number] [address] [place] [address], [place] [address] Jan, [facility] [address] [id number] [address] [place] [address], [place] [address] Jan, [facility] [address] [id number] [address] [place] [address], [place] [address] Jan, [facility] [address] [id number] [address] [place] [address], [place] [address] Jan, [facility] [address] [id number] [address] [place] [address], [place] [address] Jan, [facility] [address] [id number] [address] [place] [address], [place] [address] Nov, [facility] [address] [id number] [address] [place] [address], [place] [address] Nov, [facility] [address] [id number] [address] [place] [address], [place] [address] Nov, [facility] [address] [id number] [address] [place] [address], [place] [address] Nov, [facility] [address] [id number] [address] [place] [address], [place] [address] Nov, [facility] [address] [id number] [address] [place] [address], [place] [address] 15 Nov, 2013 [facility] [address] [id number] [address] [place] [address], [place] [address] Oct, [facility] [address] [id number] [address] [place] [address], [place] [address] Oct, [facility] [address] [id number] [address] [place] [address], [place] [address] Oct, [facility] [address] [id number] [address] [place] [address], [place] [address] Oct, [facility] [address] [id number] [address] [place] [address], [place] [address] Oct, [facility] [address] [id number] [address] [place] [address], [place] [address] Oct, [facility] [address] [id number] [address] [place] [address], [place] [address] Sep, [facility] [address] [id number] [address] [place] [address], [place] [address] Sep, [facility] [address] [id number] [address] [place] [address], [place] [address] Sep, [facility] [address] [id number] [address] [place] [address], [place] [address] Sep, [facility] [address] [id number] [address] [place] [address], [place] [address] Sep, [facility] [address] [id number] [address] [place] [address], [place] [address] Sep, [facility] [address] [id number] [address] [place] [address], [place] [address] Aug, [facility] [address] [id number] [address] [place] [address], [place] [address] Aug, [facility] [address] [id number] [address] [place] [address] Aug, [facility] [address] [id number] [address] [place] [address], [place] [address] Aug, [facility] [address] [id number] [address] [place] [address], [place] [address] Aug, [facility] [address] [id number] [address] [place] [address], [place] [address] Aug, [facility] [address] [id number] [address] [place] [address], [place] [address] Jul, [facility] [address] [id number] [address] [place] [address], [place] [address] Jul, [facility] [address] [id number] [address] [place] [address], [place] [address] Jul, [facility] [address] [id number] [address] [place] [address], [place] [address] Jul, [facility] [address] [id number] [address] [place] [address], [place] [address] June, [facility] [address] [id number] [address] [place] [address], [place] [address] June, [facility] [address] [id number] [address] [place] [address], [place] [address] June, [facility] [address] [id number] [address] [place] [address], [place] [address] June, [facility] [address] [id number] [address] [place] [address], [place] [address] May, [facility] [address] [id number] [address] [place] [address], [place] [address] May, [facility] [address] [id number] [address] [place] [address], [place] [address] May, [facility] [address] [id number] [address] [place] [address], [place] [address] May, [facility] [address] [id number] [address] [place] [address], [place] [address] May, [facility] [address] [id number] [address] [place] [address], [place] [address] May, [facility] [address] [id number] [address] [place] [address], [place] [address] Apr, [facility] [address] [id number] [address] [place] [address], [place] [address] Apr, [facility] [address] [id number] [address] [place] [address], [place] [address] Apr, [facility] [address] [id number] [address] [place] [address], [place] [address] Apr, [facility] [address] [id number] [address] [place] [address], [place] [address] Apr, [facility] [address] [id number] [address] [place] [address], [place] [address] Apr, [facility] [address] [id number] [address] [place] [address], [place] [address] Apr, [facility] [address] [id number] [address] [place] [address], [place] [address] Jan, [facility] [address] [id number] [address] [place] [address], [place] [address] Jan, [facility] [address] [id number] [address] [place] [address], [place] [address] Jan, [facility] [address] [id number] [address] [place] [address], [place] [address] Jan, [facility] [address] [id number] [address] [place] [address], [place] [address] Jan, [facility] [address] [id number] [address] [place] [address], [place] [address] Jan, [facility] [address] [id number] [address] [place] [address], [place] [address] Dec, [facility] [address] [id number] [address] [place] [address], [place] [address] Dec, [facility] [address] [id number] [address] [place] [address], [place] [address] Dec, [facility] [address] [id number] [address] [place] [address], [place] [address] Dec, [facility] [address] [id number] [address] [place] [address] Dec, [facility] [address] [id number] [address] [place] [address], [place] [address] Dec, [facility] [address] [id number] [address] [place] [address], [place] [address] Nov, [facility] [address] [id number] [address] [place] [address], [place] [address] Oct, [facility] [address] [id number] [address] [place] [address], [place] [address] Oct, [facility] [address] [id number] [address] [place] [address], [place] [address] Aug, [facility] [address] [id number] [address] [place] [address], [place] [address] Aug, [facility] [address] [id number] [address] [place] [address], [place] [address] Jul, [facility] [address] [id number] [address] [place] [address], [place] [address] June, [facility] [address] [id number] [address] [place] [address], [place] [address] Apr, [facility] [address] [id number] [address] [place] [address], [place] [address] Apr, [facility] [address] [id number] [address] [place] [address], [place] [address] Apr, [facility] [address] [id number] [address] [place] [address], [place] [address] Apr, [facility] [address] [id number] [address] [place] [address], [place] [address] Mar, [facility] [address] [id number] [address] [place] [address], [place] [address] Jan, [facility] [address] [id number] [address] [place] [address], [place] [address] Jan, [facility] [address] [id number] [address] [place] [address], [place] [address] Jan, [facility] [address] [id number] [address] [place] [address], [place] [address] Jan, [facility] [address] [id number] [address] [place] [address], [place] [address] Jan, [facility] [address] [id number] [address] [place] [address], [place] [address] Jan, [facility] [address] [id number] [address] [place] [address], [place] [address] Jan, [facility] [address] [id number] [address] [place] [address], [place] [address] Jan, [facility] [address] [id number] [address] [place] [address], [place] [address] Nov, [facility] [address] [id number] [address] [place] [address], [place] [address] Nov, [facility] [address] [id number] [address] [place] [address], [place] [address] Nov, [facility] [address] [id number] [address] [place] [address], [place] [address] Nov, [facility] [address] [id number] [address] [place] [address], [place] [address] Oct, [facility] [address] [id number] [address] [place] [address] [address] Sep, [facility] [address] [id number] [address] [place] [id number] 14 Aug, 2011 [facility] [address] [id number] [address] [place] [id number] 14 Aug, 2011 [facility] [address] [id number] [address] [place] [id number] 14 Aug, 2011 [facility] [address] [id number] [address] [place] [id number] 13 Aug, 2011 [facility] [address] [id number] [address] [place] [id number] 13 Aug, 2011 [facility] [address] [id number] [address] [place] [address] Apr, [facility] [address] [id number] [address] [place] [id number] 16 Apr, 2011 [facility] [address] [id number] [address] [place] [address] Apr, [facility] [address] [id number] [address] [place] [address] Mar, [facility] [address] [id number] [address] [place] [id number] Mar, [facility] [address] [id number] [address] [place] [address] Dec, [facility] [address] [id number] [address] [place] [id number] Dec, [facility] [address] [id number] [address] [place] [id number] Dec, IMMUNIZATIONS No Known Immunizations SOCIAL HISTORY Never Assessed REASON FOR VISIT PLAN OF CARE VITAL SIGNS MEDICATIONS Medication Instructions Dosage Frequency Start Date End Date Duration S tatus Metoprolol Succinate ER 25 MG Orally Once a day 1 tablet 24h Active RESULTS No Results PROCEDURES No Known [...]
--- OUTSIDE RECORDS SUMMARY | 2019-06-21 16:34 | XMS REPORT ---
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 [employer] Name Role Phone ELVIN ABDI Unavailable PROBLEMS Type Condition ICD9-CM Code CRM45-IV Code Onset Dates Condition S tatus SNOMED Code Problem Hyperlipidemia E78.5 Active 34055 004 Problem DM neuro manif type II E11.49 Active 59497281 Problem Diabetes mellitus E11.9 Active 73 906865 Problem Left leg claudication I73.9 Active 172917317 Problem CAD (coronary artery disease) I25.10 Active 78402884 Problem Hypertension I10 Active 1549781 3 Problem Hypoglycemia E16.2 Active 1907928 03 Problem Arthritis M19.90 Active 4830914 Problem Cigarette nicotine dependence with nicotine-induced di sorder F17.219 Active 08562344 Problem Impaired circulation I99.9 Active 79148360 Problem Hammertoe M20.40 Active 564456969 Problem Reactive depression F32.9 Active 53087163 ALLERGIES Substance Reaction Event Type Date Status Penicillin V Potassium Unknown Drug Allergy Jul, Activ e Spiders Unknown Non Drug Allergy Jul, Active Artificial sweetner migraines, diarrhea Non Drug Allergy Jul, Active Bee Stings anaphylaxis Non Drug Allergy Jul, Active ENCOUNTERS Encounter Location Date Diagnosis [facility] [address] [facility] [id number] [address] [place] [address] Jan, [facility] [address] [facility] [id number] [address] [place] [address] Oct, [facility] [address] [facility] [id number] [address] [place] [address] Sep, [facility] [address] [facility] [id number] [address] [place] [address] Aug, Hypoglycemia E16.2 [facility] [address] [address] Aug, [place] [address] [address] Jul, [facility] [address] [address] Jul, Elevated blood sugar R73.9 a nd Neck pain M54.2 [place] [address] [address] Jul, [place] [address] [address] Jul, Onychomycosis B35.1 and DM n euro manif type II E11.49 [place] [address] [address] Jul, [place] [address] [address] June, Hyperlipidemia E78.5 [place] [address] [address] June, Diabetes mellitus E11.9 ; CA D (coronary artery disease) I25.10 ; Arthritis M19.90 and Hyperlipidemia E78.5 [place] [address] [address] June, [place] [address] [address] Apr, Onychomycosis B35.1 ; DM chuck ro manif type II E11.49 and Hammertoe M20.40 [place] [address] [address] Apr, Diabetes mellitus E11.9 and Hypertension I10 [place] [address] [place] [id number] [place] [address] Mar, Hypertension I10 and Diabete s mellitus E11.9 [place] [address] [place] [address] [place] [address] Mar, Hypertension I10 and Diabete s mellitus E11.9 [place] [address] [place] [id number] [address] [place] [address] Jan, Onychomycosis B35.1 and DM n euro manif type II E11.49 [place] [address] [place] [id number] [address] [place] [address] Dec, [place] [address] [place] [id number] [place] [address] Dec, [place] [address] [address] Dec, Hypertension I10 and Diabete s mellitus E11.9 [place] [address] [place] [id number] [place] [address] Oct, Encounter for immunization Z 23 ; Diabetes mellitus E11.9 ; Hypertension I10 and Cigarette nicotine dependence with nicotine-induced disorder F17.219 [place] [address] [address] Oct, Diabetes mellitus E11.9 [place] [address] [address] Oct, Onychomycosis B35.1 ; DM chuck ro manif type II E11.49 and Hammertoe M20.40 [place] [address] [place] [id number] [address] [place] [address] Jul, Diabetes mellitus E11.9 [place] [address] [place] [id number] [address] [place] [address] Jul, Onychomycosis B35.1 ; Hammer toe M20.40 and DM neuro manif type II E11.49 [place] [address] [place] [id number] [address] [place] [address] May, Diabetes mellitus E11.9 [place] [address] [place] [id number] [address] [place] [address] May, Diabetes mellitus E11.9 [place] [address] [place] [id number] [address] [place] [address] Nov, Diabetes mellitus E11.9 ; Hy pertension I10 ; Reactive depression F32.9 and Encounter for immunization Z23 [place] [address] [facility] [id number] [address] [place] [address] Oct, Ulcer of other part of foot L97.509 [place] [address] [place] [id number] [address] [place] [address] Sep, Onychomycosis B35.1 ; Ulcer of heel, left, with unspecified severity L97.429 and DM neuro manif type II E11.49 [place] [address] [place] [id number] [address] [place] [address] Sep, [place] [address] [place] [id number] [place] [address] Sep, Ulcer of heel, left, with un specified severity L97.429 [place] [address] [place] [id number] [address] [place] [address] Aug, Onychomycosis B35.1 ; Ulcer of heel, left, with unspecified severity L97.429 and DM neuro manif type II E11.49 [place] [address] [place] [id number] [address] [place] [address] Jul, Diabetes mellitus E11.9 ; Hy pertension I10 ; Cigarette nicotine dependence with nicotine-induced disorder F17.219 and CAD (coronary artery disease) I25.10 [place] [address] [place] [id number] [address] [place] [address] Jul, Left leg claudication I73.9 ; Right leg claudication I73.9 ; CAD (coronary artery disease) I25.10 ; Hypertension I10 and Hyperlipidemia E78.5 [place] [address] [place] [id number] [address] [place] [address] Jul, Ulcer of heel, left, with un specified severity L97.429 and DM neuro manif type II E11.49 [facility] [address] [id number] [address] [place] [address] June, Ulcer of heel, left, with un specified severity L97.429 and Ulcer of other part of foot L97.509 [facility] [address] [id number] [address] [place] [address] June, Ulcer of heel, left, with un specified severity L97.429 and Ulcer of foot, left, with unspecified severity L97.529 [facility] [address] [id number] [address] [place] [address] May, [facility] [address] [id number] [address] [place] [address] May, [facility] [address] [id number] [address] [place] [address] Apr, DM neuro manif type II E11.4 9 ; Hypertension I10 and Sleep apnea in adult G47.33 [facility] [address] [id number] [address] [place] [address] Apr, [facility] [address] [id number] [address] [place] [address] Apr, Ulcer of foot L97.509 and DM neuro manif type II E11.49 [facility] [address] [id number] [address] [place] [address] Apr, Ulcer of other part of foot L97.509 and DM neuro manif type II E11.49 [facility] [address] [id number] [address] [place] [address] Apr, Onychomycosis B35.1 ; Ingrow n toenail L60.0 ; Impaired circulation I99.9 and DM neuro manif type II E11.49 [facility] [address] [id number] [address] [place] [address] Mar, Ulcer of other part of foot L97.509 ; Onychomycosis B35.1 and Diabetes mellitus E11.9 [facility] [address] [facility] [id number] [address] [place] [address] 19 Dec, 2014 Encounter for immunization Z 23 ; Hypertension I10 and Diabetes mellitus E11.9 [facility] [address] [facility] [id number] [address] [place] [address] 11 Dec, 2014 [facility] [address] [facility] [id number] [address] [place] [address] Dec, CAD (coronary artery disease ) I25.10 ; Hypertension I10 ; Left leg claudication I73.9 and Hyperlipidemia E78.5 [place] [address] [facility] [id number] [address] [place] [address] Nov, Onychomycosis B35.1 and Vin ertoe M20.40 [place] [address] [place] [id number] [address] [place] [address] Sep, Coronary atherosclerosis of unspecified type of vessel, [place] or graft 414.00 [place] [address] [facility] [id number] [address] [place] [address] Sep, Coronary atherosclerosis of unspecified type of vessel, [place] or graft 414.00 and Diabetes 250.00 [place] [address] [facility] [id number] [address] [place] [address] May, [facility] [address] [facility] [id number] [address] [place] [address] May, [facility] [address] [facility] [id number] [address] [place] [address] Apr, [facility] [address] [facility] [id number] [address] [place] [address] Apr, [facility] [address] [facility] [id number] [address] [place] [address] Apr, [facility] [address] [facility] [id number] [address] [place] [address] Apr, [facility] [address] [place] [id number] [address] [place] [address] Mar, [facility] [address] [id number] [address] [place] [address], [place] [address] Mar, [facility] [address] [id number] [address] [place] [address], [place] [address] Jan, [facility] [address] [id number] [address] [place] [address], [place] [address] Jan, [facility] [address] [id number] [address] [place] [address], [place] [address] Jan, [facility] [address] [id number] [address] [place] [address], [place] [address] Jan, [facility] [address] [id number] [address] [place] [address], [place] [address] Jan, [facility] [address] [id number] [address] [place] [address], [place] [address] Jan, [facility] [address] [id number] [address] [place] [address], [place] [address] Jan, [facility] [address] [id number] [address] [place] [address], [place] [address] Jan, [facility] [address] [id number] [address] [place] [address], [place] [address] Jan, [facility] [address] [id number] [address] [place] [address], [place] [address] Jan, [facility] [address] [id number] [address] [place] [address], [place] [address] Jan, [facility] [address] [id number] [address] [place] [address], [place] [address] Nov, [facility] [address] [id number] [address] [place] [address], [place] [address] Nov, [facility] [address] [id number] [address] [place] [address], [place] [address] Nov, [facility] [address] [id number] [facility] [place] [address] Nov, [facility] [address] [id number] [address] [place] [address], [place] [address] 15 Nov, 2013 [facility] [address] [id number] [address] [place] [address], [place] [address] 15 Nov, 2013 [facility] [address] [id number] [address] [place] [address], [place] [address] 19 Oct, 2013 [facility] [address] [id number] [address] [place] [address], [place] [address] 19 Oct, 2013 [facility] [address] [id number] [address] [place] [address], [place] [address] 19 Oct, 2013 [facility] [address] [id number] [address] [place] [address], [place] [address] 19 Oct, 2013 [facility] [address] [id number] [address] [place] [address], [place] [address] 05 Oct, 2013 [facility] [address] [id number] [address] [place] [address], [place] [address] 05 Oct, 2013 [facility] [address] [id number] [address] [place] [address], [place] [address] Sep, [facility] [address] [id number] [address] [place] [address], [place] [address] Sep, [facility] [address] [id number] [address] [place] [address], [place] [address] Sep, [facility] [address] [id number] [address] [place] [address], [place] [address] Sep, [facility] [address] [id number] [address] [place] [address], [place] [address] Sep, [facility] [address] [id number] [address] [place] [address], [place] [address] Sep, [facility] [address] [id number] [address] [place] [address], [place] [address] Aug, [facility] [address] [id number] [facility] [place] [address] Aug, [facility] [address] [id number] [facility] [place] [address] Aug, [facility] [address] [id number] [facility] [place] [address] Aug, [facility] [address] [id number] [address] [place] [address], [place] [address] Aug, [facility] [address] [id number] [address] [place] [address], [place] [address] Aug, [facility] [address] [id number] [address] [place] [address], [place] [address] Jul, [facility] [address] [id number] [address] [place] [address], [place] [address] Jul, [facility] [address] [id number] [address] [place] [address], [place] [address] Jul, [facility] [address] [id number] [address] [place] [address], [place] [address] Jul, [facility] [address] [id number] [address] [place] [address], [place] [address] June, [facility] [address] [id number] [address] [place] [address], [place] [address] June, [facility] [address] [id number] [address] [place] [address], [place] [address] June, [facility] [address] [id number] [address] [place] [address], [place] [address] June, [facility] [address] [id number] [address] [place] [address], [place] [address] May, [facility] [address] [id number] [address] [place] [address], [place] [address] May, [facility] [address] [id number] [address] [place] [address], [place] [address] May, [facility] [address] [id number] [address] [place] [address], [place] [address] May, [facility] [address] [id number] [address] [place] [address], [place] [address] May, [facility] [address] [id number] [address] [place] [address], [place] [address] May, [facility] [address] [id number] [address] [place] [address], [place] [address] Apr, [facility] [address] [id number] [address] [place] [address], [place] [address] Apr, [facility] [address] [id number] [address] [place] [address], [place] [address] Apr, [facility] [address] [id number] [address] [place] [address], [place] [address] Apr, [facility] [address] [id number] [address] [place] [address], [place] [address] Apr, [facility] [address] [id number] [address] [place] [address], [place] [address] Apr, [facility] [address] [id number] [address] [place] [address], [place] [address] Apr, [facility] [address] [id number] [address] [place] [address], [place] [address] Jan, [facility] [address] [id number] [address] [place] [address], [place] [address] Jan, [facility] [address] [id number] [address] [place] [address], [place] [address] Jan, [facility] [address] [id number] [address] [place] [address], [place] [address] Jan, [facility] [address] [id number] [address] [place] [address], [place] [address] Jan, [facility] [address] [id number] [address] [place] [address], [place] [address] Jan, [facility] [address] [id number] [address] [place] [address], [place] [address] Dec, [facility] [address] [id number] [address] [place] [address], [place] [address] Dec, [facility] [address] [id number] [address] [place] [address], [place] [address] Dec, [facility] [address] [id number] [address] [place] [address], [place] [address] Dec, [facility] [address] [id number] [address] [place] [address], [place] [address] Dec, [facility] [address] [id number] [address] [place] [address], [place] [address] Dec, [facility] [address] [id number] [address] [place] [address] Nov, [facility] [address] [id number] [address] [place] [address], [place] [address] Oct, [facility] [address] [id number] [address] [place] [address] Oct, [facility] [address] [id number] [address] [place] [address] Aug, [facility] [address] [id number] [address] [place] [address] Aug, [facility] [address] [id number] [address] [place] [address] Jul, [facility] [address] [id number] [address] [place] [address] June, [facility] [address] [id number] [address] [place] [address] Apr, [facility] [address] [id number] [address] [place] [address] 12 Apr, 2012 [facility] [address] [id number] [address] [place] [address], [place] [address] 08 Apr, 2012 [facility] [address] [id number] [address] [place] [address], [place] [address] 04 Apr, 2012 [facility] [address] [id number] [address] [place] [address], [place] [address] Mar, [facility] [address] [id number] [address] [place] [address], [place] [address] Jan, [facility] [address] [id number] [address] [place] [address], [place] [address] Jan, [facility] [address] [id number] [address] [place] [address], [place] [address] Jan, [facility] [address] [id number] [address] [place] [address], [place] [address] Jan, [facility] [address] [id number] [address] [place] [address], [place] [address] Jan, [facility] [address] [id number] [address] [place] [address], [place] [address] Jan, [facility] [address] [id number] [address] [place] [address], [place] [address] Jan, [facility] [address] [id number] [address] [place] [address], [place] [address] Jan, [facility] [address] [id number] [address] [place] [address], [place] [address] Nov, [facility] [address] [id number] [address] [place] [address], [place] [address] Nov, [facility] [address] [id number] [address] [place] [address], [place] [address] Nov, [facility] [address] [id number] [address] [place] [address], [place] [address] Nov, [facility] [address] [id number] [address] [place] [phone] 17 Nov, 2011 [facility] [address] [id number] [address] [place] [phone] 24 Oct, 2011 [facility] [address] [id number] [address] [place] [phone] 14 Aug, 2011 [facility] [address] [id number] [address] [place] [phone] 14 Aug, 2011 [facility] [address] [id number] [address] [place] [phone] 14 Aug, 2011 [facility] [address] [id number] [address] [place] [phone] 13 Aug, 2011 [facility] [address] [id number] [address] [place] [phone] 13 Aug, 2011 [facility] [address] [id number] [address] [place] [phone] Apr, [facility] [address] [id number] [address] [place] [phone] 16 Apr, 2011 [facility] [address] [id number] [address] [place] [phone] 16 Apr, 2011 [facility] [address] [id number] [address] [place] [phone] Mar, [facility] [address] [id number] [address] [place] [phone] Mar, [facility] [address] [id number] [address] [place] [id number] Dec, [facility] [address] [id number] [address] [place] [id number] Dec, [facility] [address] [id number] [address] [place] [phone] Dec, IMMUNIZATIONS No Known Immunizations SOCIAL HISTORY Never Assessed REASON FOR VISIT neck pain and fatigue x 2 weeks. No trauma noted. Has taken hydrocodone to help at night. JjournotRN, Increased BS fasting and gets higher through out the day. PLAN OF CARE Activity Details Follow Up Will call after lab Reason: VITAL SIGNS Height 75 in 2017-08-20 Weight 227.7 lbs 2017-08-20 Temperature 97.9 degrees Fahrenheit 2017-08-20 Heart Rate 88 bpm 2017-08-20 Respiratory Rate 20 2017-08-20 BMI 28.46 kg/m2 2017-08-20 Blood pressure systolic 132 mmHg 2017-08-20 Blood pressure diastolic 72 mmHg 2017-08-20 MEDICATIONS Medication Instructions Dosage Frequency Start Date End Date Duration S tatus Naproxen 500 mg Orally twice a day, pc 1 tablet Oct, 90 days Active Metoprolol Succinate ER 25 MG Orally 2 times a day 1 tablet 12h Active Plavix 75 MG Orally Once a day 1 tablet 24h Active Aspir-Low 81 MG Orally Once a day 1 tablet 24h Active Hydrocodone-Acetaminophen 5-325 MG Orally every 6 hrs PRN 1 tablet as needed Active Simvastatin 20 mg Orally Once a day 1 tablet in the evening 24h Active Gabapentin 300 MG Orally Three times a day 1 capsule 8h Active Multi Vitamin Daily - Orally Once a day 1 tablet 24h Active Metformin HCl 1000 MG Orally twice a day 1 tablet with a meal 12h June, 30 day(s) Active Lisinopril 10 mg Orally Once a day 1 tablet 24h Active Zoloft 50 mg Orally Once a day 1 tablet 24h 30 Active RESULTS Name Result Date Reference Range UA LONG DIP (IN HOUSE) 2017-08-20 Lot # [id number] Exp date 12/17 Clarity clear Color yellow Odor none GLU negative MACKENZIE negative KET trace SG 1.025 BLO negative pH 6.5 Protein 1+ URO 1.0 NIT negative PAOLA negative Lot # Exp date CBC 2017-08-20 WHITE BLOOD CELL COUNT 7.1 3.8-10.8 RED BLOOD CELL COUNT 4.37 4.20-5.80 HEMOGLOBIN 14.0 13.2-17.1 HEMATOCRIT 39.6 38.5-50.0 MCV 90.6 80.0-100.0 MCH 32.0 27.0-33.0 MCHC 35.4 32.0-36.0 RDW 12.9 11.0-15.0 PLATELET COUNT 154 140-400 MPV 11.3 7.5-12.5 ABSOLUTE NEUTROPHILS 4835 3314-7183 ABSOLUTE LYMPHOCYTES [phone] ABSOLUTE MONOCYTES 518 200-950 ABSOLUTE EOSINOPHILS 114 15-500 ABSOLUTE BASOPHILS 43 0-200 NEUTROPHILS 68.1 LYMPHOCYTES 22.4 MONOCYTES 7.3 EOSINOPHILS 1.6 BASOPHILS 0.6 CRP 2017-08-20 C-REACTIVE PROTEIN 9.8 <8.0 PROCEDURES Procedure Date Ordered Result Body Site URINALYSIS, AUTO, W/O SCOPE August 20, 2017 COMPLETE CBC W/AUTO DIFF WBC August 20, 2017 VENIPUNCT, ROUTINE* August 20, 2017 C-REACTIVE PROTEIN August 20, 2017 INSTRUCTIONS MEDICATIONS ADMINISTERED No Known Medications [...]
--- OUTSIDE RECORDS SUMMARY | 2019-06-21 16:34 | XMS REPORT ---
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 Name Role Phone ELVIN ABDI Unavailable PROBLEMS Type Condition ICD9-CM Code EDN47-SR Code Onset Dates Condition S tatus SNOMED Code Problem Hyperlipidemia E78.5 Active 57503 004 Problem DM neuro manif type II E11.49 Active 88638192 Problem Diabetes mellitus E11.9 Active 73 770608 Problem Left leg claudication I73.9 Active 162350887 Problem CAD (coronary artery disease) I25.10 Active 27262034 Problem Hypertension I10 Active 6297639 3 Problem Hypoglycemia E16.2 Active 0482342 03 Problem Arthritis M19.90 Active 1496043 Problem Cigarette nicotine dependence with nicotine-induced di sorder F17.219 Active 63600677 Problem Impaired circulation I99.9 Active 49486960 Problem Hammertoe M20.40 Active 319704858 Problem Reactive depression F32.9 Active 25340790 ALLERGIES No Information ENCOUNTERS Encounter Location Date Diagnosis [place] [address] [place] [id number] [place] [address] Jan, [place] [address] [place] [id number] [address] [place] [address] Jan, [place] [address] [place] [id number] [address] [place] [address] Oct, Onychomycosis B35.1 ; DM chuck ro manif type II E11.49 and Impaired circulation I99.9 [place] [address] [place] [id number] [address] [place] [address] Sep, [place] [address] [place] [id number] [address] [place] [address] Aug, Hypoglycemia E16.2 [place] [address] [address] Aug, [place] [address] [address] Jul, [facility] [address] [address] Jul, Elevated blood sugar R73.9 a nd Neck pain M54.2 [place] [address] [address] Jul, [place] [address] [address] Jul, Onychomycosis B35.1 and DM n euro manif type II E11.49 [place] [address] [address] Jul, [place] [address] [address] June, Hyperlipidemia E78.5 [place] [address] [address] June, Diabetes mellitus E11.9 ; CA D (coronary artery disease) I25.10 ; Arthritis M19.90 and Hyperlipidemia E78.5 [place] [address] [place] [id number] [address] [place] [address] June, [place] [address] [address] Apr, Onychomycosis B35.1 ; DM chuck ro manif type II E11.49 and Hammertoe M20.40 [place] [address] [address] Apr, Diabetes mellitus E11.9 and Hypertension I10 [place] [address] [place] [id number] [address] [place] [address] Mar, Hypertension I10 and Diabete s mellitus E11.9 [place] [address] [place] [address] Mar, Hypertension I10 and Diabete s mellitus E11.9 [place] [address] [facility] [id number] [address] [place] [address] Jan, Onychomycosis B35.1 and DM n euro manif type II E11.49 [place] [address] [facility] [id number] [address] [place] [address] Dec, [place] [address] [facility] [id number] [address] [place] [address] Dec, [place] [address] [facility] [id number] [place] [address] Dec, Hypertension I10 and Diabete s mellitus E11.9 [place] [address] [place] [id number] [address] [place] [address] Oct, Encounter for immunization Z 23 ; Diabetes mellitus E11.9 ; Hypertension I10 and Cigarette nicotine dependence with nicotine-induced disorder F17.219 [place] [address] [place] [address] Oct, Diabetes mellitus E11.9 [place] [address] [place] [id number] [address] [place] [address] Oct, Onychomycosis B35.1 ; DM chuck ro manif type II E11.49 and Hammertoe M20.40 [place] [address] [facility] [id number] [address] [place] [address] Jul, Diabetes mellitus E11.9 [place] [address] [facility] [id number] [address] [place] [address] Jul, Onychomycosis B35.1 ; Hammer toe M20.40 and DM neuro manif type II E11.49 [place] [address] [facility] [id number] [address] [place] [address] May, Diabetes mellitus E11.9 [place] [address] [place] [id number] [address] [place] [address] May, Diabetes mellitus E11.9 [place] [address] [facility] [id number] [address] [place] [address] Nov, Diabetes mellitus E11.9 ; Hy pertension I10 ; Reactive depression F32.9 and Encounter for immunization Z23 [place] [address] [facility] [id number] [address] [place] [address] Oct, Ulcer of other part of foot L97.509 [place] [address] [facility] [id number] [address] [place] [address] Sep, Onychomycosis B35.1 ; Ulcer of heel, left, with unspecified severity L97.429 and DM neuro manif type II E11.49 [place] [address] [facility] [id number] [address] [place] [address] Sep, [place] [address] [facility] [id number] [address] [place] [address] Sep, Ulcer of heel, left, with un specified severity L97.429 [place] [address] [facility] [id number] [address] [place] [address] Aug, Onychomycosis B35.1 ; Ulcer of heel, left, with unspecified severity L97.429 and DM neuro manif type II E11.49 [place] [address] [facility] [id number] [address] [place] [address] Jul, Diabetes mellitus E11.9 ; Hy pertension I10 ; Cigarette nicotine dependence with nicotine-induced disorder F17.219 and CAD (coronary artery disease) I25.10 [place] [address] [facility] [id number] [address] [place] [address] Jul, Left leg claudication I73.9 ; Right leg claudication I73.9 ; CAD (coronary artery disease) I25.10 ; Hypertension I10 and Hyperlipidemia E78.5 [place] [address] [facility] [id number] [address] [place] [address] Jul, Ulcer of heel, left, with un specified severity L97.429 and DM neuro manif type II E11.49 [facility] [address] [id number] [address] [place] [address] June, Ulcer of heel, left, with un specified severity L97.429 and Ulcer of other part of foot L97.509 [facility] [address] [id number] [address] [place] [address] June, Ulcer of heel, left, with un specified severity L97.429 and Ulcer of foot, left, with unspecified severity L97.529 [facility] [address] [id number] [address] [place] [address] May, [facility] [address] [id number] [address] [place] [address] May, [facility] [address] [facility] [id number] [address] [place] [address] Apr, DM neuro manif type II E11.4 9 ; Hypertension I10 and Sleep apnea in adult G47.33 [facility] [address] [id number] [address] [place] [address] Apr, [facility] [address] [id number] [address] [place] [address] Apr, Ulcer of foot L97.509 and DM neuro manif type II E11.49 [facility] [address] [id number] [address] [place] [address] Apr, Ulcer of other part of foot L97.509 and DM neuro manif type II E11.49 [facility] [address] [id number] [address] [place] [address] Apr, Onychomycosis B35.1 ; Ingrow n toenail L60.0 ; Impaired circulation I99.9 and DM neuro manif type II E11.49 [facility] [address] [id number] [address] [place] [address] Mar, Ulcer of other part of foot L97.509 ; Onychomycosis B35.1 and Diabetes mellitus E11.9 [facility] [address] [facility] [id number] [address] [place] [address] 19 Dec, 2014 Encounter for immunization Z 23 ; Hypertension I10 and Diabetes mellitus E11.9 [facility] [address] [facility] [id number] [address] [place] [address] Dec, [facility] [address] [facility] [id number] [address] [place] [address] Dec, CAD (coronary artery disease ) I25.10 ; Hypertension I10 ; Left leg claudication I73.9 and Hyperlipidemia E78.5 [facility] [address] [facility] [id number] [address] [place] [address] Nov, Onychomycosis B35.1 and Vin ertoe M20.40 [facility] [address] [facility] [id number] [address] [place] [address] Sep, Coronary atherosclerosis of unspecified type of vessel, torres martinez or graft 414.00 [facility] [address] [facility] [id number] [address] [place] [address] Sep, Coronary atherosclerosis of unspecified type of vessel, torres martinez or graft 414.00 and Diabetes 250.00 [facility] [address] [facility] [id number] [address] [place] [address] May, [facility] [address] [facility] [id number] [address] [place] [address] May, [facility] [address] [facility] [id number] [address] [place] [address] Apr, [facility] [address] [facility] [id number] [address] [place] [address] Apr, [facility] [address] [facility] [id number] [address] [place] [address] Apr, [facility] [address] [facility] [id number] [address] [place] [address] Apr, [facility] [address] [place] [id number] [address] [place] [address] [place] [address] Mar, [facility] [address] [id number] [address] [place] [address], [place] [address] Mar, [facility] [address] [id number] [address] [place] [address], [place] [address] Jan, [facility] [address] [id number] [address] [place] [address], [place] [address] Jan, [facility] [place] [address] [id number] [address] [place] [address], [place] [address] Jan, [facility] [address] [id number] [address] [place] [address], [place] [address] Jan, [facility] [address] [id number] [address] [place] [address], [place] [address] Jan, [facility] [address] [id number] [address] [place] [address], [place] [address] Jan, [facility] [address] [id number] [address] [place] [address], [place] [address] Jan, [facility] [address] [id number] [address] [place] [address], [place] [address] Jan, [facility] [address] [id number] [address] [place] [address], [place] [address] Jan, [facility] [address] [id number] [address] [place] [address], [place] [address] Jan, [facility] [place] [facility] [address] [id number] [address] [place] [address], [place] [address] Jan, [facility] [place] [address] [id number] [address] [place] [address], [place] [address] Nov, [facility] [place] [address] [id number] [address] [place] [address], [place] [address] Nov, [facility] [address] [id number] [address] [place] [address], [place] [address] Nov, [facility] [place] [address] [id number] [address] [place] [address], [place] [address] Nov, [facility] [place] [facility] [address] [id number] [address] [place] [address], [place] [address] 15 Nov, 2013 [facility] [place] [facility] [address] [id number] [address] [place] [address], [place] [address] 15 Nov, 2013 [facility] [place] [facility] [address] [id number] [address] [place] [address], [place] [address] 19 Oct, 2013 [facility] [place] [facility] [address] [id number] [address] [place] [address], [place] [address] 19 Oct, 2013 [facility] [place] [facility] [address] [id number] [address] [place] [address], [place] [address] 19 Oct, 2013 [facility] [place] [facility] [address] [id number] [address] [place] [address], [place] [address] 19 Oct, 2013 [facility] [place] [facility] [address] [id number] [address] [place] [address], [place] [address] 05 Oct, 2013 [facility] [place] [address] [id number] [address] [place] [address], [place] [address] 05 Oct, 2013 [facility] [place] [facility] [address] [id number] [address] [place] [address], [place] [address] Sep, [facility] [place] [facility] [address] [id number] [address] [place] [address], [place] [address] Sep, [facility] [place] [facility] [address] [id number] [address] [place] [address], [place] [address] Sep, [facility] [place] [facility] [address] [id number] [address] [place] [address], [place] [address] Sep, [facility] [place] [facility] [address] [id number] [address] [place] [address], [place] [address] Sep, [facility] [place] [facility] [address] [id number] [address] [place] [address], [place] [address] Sep, [facility] [place] [facility] [address] [id number] [address] [place] [address], [place] [address] Aug, [facility] [address] [id number] [facility] [address] Aug, [facility] [place] [facility] [address] [id number] [address] [place] [address], [place] [address] Aug, [facility] [address] [id number] [facility] [place] [address] Aug, [facility] [place] [facility] [address] [id number] [address] [place] [address], [place] [address] Aug, [facility] [address] [id number] [address] [place] [address], [place] [address] Aug, [facility] [address] [id number] [address] [place] [address], [place] [address] Jul, [facility] [address] [id number] [address] [place] [address], [place] [address] Jul, [facility] [address] [id number] [address] [place] [address], [place] [address] Jul, [facility] [address] [id number] [address] [place] [address], [place] [address] Jul, [facility] [address] [id number] [address] [place] [address], [place] [address] June, [facility] [address] [id number] [address] [place] [address], [place] [address] June, [facility] [address] [id number] [address] [place] [address], [place] [address] June, [facility] [place] [address] [id number] [address] [place] [address], [place] [address] June, [facility] [place] [address] [id number] [address] [place] [address], [place] [address] May, [facility] [place] [facility] [address] [id number] [address] [place] [address], [place] [address] May, [facility] [place] [facility] [address] [id number] [address] [place] [address] May, [facility] [address] [id number] [address] [place] [address], [place] [address] May, [facility] [address] [id number] [address] [place] [address], [place] [address] May, [facility] [address] [id number] [address] [place] [address], [place] [address] May, [facility] [address] [id number] [address] [place] [address], [place] [address] Apr, [facility] [address] [id number] [address] [place] [address], [place] [address] Apr, [facility] [address] [id number] [address] [place] [address], [place] [address] Apr, [facility] [address] [id number] [address] [place] [address], [place] [address] Apr, [facility] [address] [id number] [address] [place] [address], [place] [address] Apr, [facility] [address] [id number] [address] [place] [address], [place] [address] Apr, [facility] [address] [id number] [address] [place] [address], [place] [address] Apr, [facility] [address] [id number] [address] [place] [address], [place] [address] Jan, [facility] [address] [id number] [address] [place] [address], [place] [address] Jan, [facility] [address] [id number] [address] [place] [address], [place] [address] Jan, [facility] [address] [id number] [address] [place] [address], [place] [address] Jan, [facility] [address] [id number] [address] [place] [address], [place] [address] Jan, [facility] [address] [id number] [address] [place] [address], [place] [address] Jan, [facility] [address] [id number] [address] [place] [address], [place] [address] Dec, [facility] [address] [id number] [address] [place] [address], [place] [address] Dec, [facility] [address] [id number] [address] [place] [address], [place] [address] Dec, [facility] [address] [id number] [address] [place] [address], [place] [address] Dec, [facility] [address] [id number] [address] [place] [address], [place] [address] Dec, [facility] [address] [id number] [address] [place] [address], [place] [address] Dec, [facility] [address] [id number] [address] [place] [address], [place] [address] Nov, [facility] [address] [id number] [address] [place] [address], [place] [address] Oct, [facility] [address] [id number] [address] [place] [address] Oct, [facility] [address] [id number] [address] [place] [address], [place] [address] Aug, [facility] [address] [id number] [address] [place] [address] Aug, [facility] [address] [id number] [address] [place] [address], [place] [address] Jul, [facility] [place] [facility] [address] [id number] [address] [place] [address], [place] [address] June, [facility] [place] [facility] [address] [id number] [address] [place] [address], [place] [address] Apr, [facility] [place] [facility] [address] [id number] [address] [place] [address], [place] [address] 12 Apr, 2012 [facility] [address] [id number] [address] [place] [address], [place] [address] 08 Apr, 2012 [facility] [address] [id number] [address] [place] [address], [place] [address] 04 Apr, 2012 [facility] [address] [id number] [address] [place] [address], [place] [address] Mar, [facility] [address] [id number] [address] [place] [address], [place] [address] Jan, [facility] [address] [id number] [address] [place] [address], [place] [address] 27 Jan, 2012 [facility] [address] [id number] [address] [place] [address], [place] [address] Jan, [facility] [address] [id number] [address] [place] [address], [place] [address] Jan, [facility] [address] [id number] [address] [place] [address], [place] [address] Jan, [facility] [address] [id number] [address] [place] [address], [place] [address] Jan, [facility] [address] [id number] [address] [place] [address], [place] [address] Jan, [facility] [address] [id number] [address] [place] [address], [place] [address] Jan, [facility] [address] [id number] [address] [place] [address], [place] [address] Nov, [facility] [address] [id number] [address] [place] [address], [place] [address] Nov, [facility] [address] [id number] [address] [place] [address], [place] [address] Nov, [facility] [address] [id number] [address] [place] [address], [place] [address] Nov, [facility] [address] [id number] [address] [place] [id number] 17 Nov, 2011 [facility] [address] [id number] [address] [place] [phone] 24 Oct, 2011 [facility] [address] [id number] [address] [place] [phone] 14 Aug, 2011 [facility] [address] [id number] [address] [place] [phone] 14 Aug, 2011 [facility] [address] [id number] [address] [place] [id number] 14 Aug, 2011 [facility] [address] [id number] [address] [place] [phone] 13 Aug, 2011 [facility] [address] [id number] [address] [place] [phone] 13 Aug, 2011 [facility] [address] [id number] [address] [place] [id number] Apr, [facility] [address] [id number] [address] [place] [phone] 16 Apr, 2011 [facility] [address] [id number] [address] [place] [phone] 16 Apr, 2011 [facility] [address] [id number] [address] [place] [phone] Mar, [facility] [address] [id number] [address] [place] [phone] Mar, [facility] [address] [id number] [address] [place] [phone] Dec, [facility] [address] [id number] [address] [place] [id number] Dec, [facility] [address] [id number] [address] [place] [phone] Dec, IMMUNIZATIONS No Known Immunizations SOCIAL HISTORY Never Assessed REASON FOR VISIT Refill request PLAN OF CARE VITAL SIGNS MEDICATIONS Medication Instructions Dosage Frequency Start Date End Date Duration S lisa Gabapentin 300 MG Orally Three times a day 1 capsule 8h Active RESULTS No Results PROCEDURES No Known [...]
--- OUTSIDE RECORDS SUMMARY | 2019-06-21 16:34 | XMS REPORT ---
Author Author Nick ABDI Organization [facility] Address [address] [place] [address] Care Team Providers Care Gre Instructor Name Role Phone ELVIN ABDI Unavailable PROBLEMS Type Condition ICD9-CM Code PLS35-YC Code Onset Dates Condition S tatus SNOMED Code Problem Hyperlipidemia E78.5 Active 78436 004 Problem DM neuro manif type II E11.49 Active 17750438 Problem Diabetes mellitus E11.9 Active 73 815583 Problem Left leg claudication I73.9 Active 020571594 Problem CAD (coronary artery disease) I25.10 Active 55235886 Problem Hypertension I10 Active 2247995 3 Problem Hypoglycemia E16.2 Active 2713276 03 Problem Arthritis M19.90 Active 5300759 Problem Cigarette nicotine dependence with nicotine-induced di sorder F17.219 Active 63905333 Problem Impaired circulation I99.9 Active 17939535 Problem Hammertoe M20.40 Active 453953772 Problem Reactive depression F32.9 Active 77672807 ALLERGIES No Information ENCOUNTERS Encounter Location Date Diagnosis [facility] [address] [facility] [id number] [address] [place] [address] Jan, [facility] [address] [facility] [id number] [address] [place] [address] Oct, [facility] [address] [facility] [id number] [address] [place] [address] Sep, [facility] [address] [facility] [id number] [address] [place] [address] Aug, Hypoglycemia E16.2 [facility] [address] [facility] [id number] [address] [place] [address] Aug, [facility] [address] [facility] [id number] [address] [place] [address] Jul, [place] [address] [facility] [id number] [address] [place] [address] Jul, Elevated blood sugar R73.9 a nd Neck pain M54.2 [place] [address] [facility] [id number] [address] [place] [address] Jul, [place] [address] [place] [id number] [place] [address] Jul, Onychomycosis B35.1 and DM n euro manif type II E11.49 [place] [address] [facility] [id number] [address] [place] [address] Jul, [place] [address] [facility] [id number] [address] [place] [address] June, Hyperlipidemia E78.5 [place] [address] [place] [id number] [place] [address] June, Diabetes mellitus E11.9 ; CA D (coronary artery disease) I25.10 ; Arthritis M19.90 and Hyperlipidemia E78.5 [place] [address] [facility] [id number] [address] [place] [address] June, [place] [address] [place] [id number] [place] [address] Apr, Onychomycosis B35.1 ; DM chuck ro manif type II E11.49 and Hammertoe M20.40 [place] [address] [facility] [id number] [address] [place] [address] Apr, Diabetes mellitus E11.9 and Hypertension I10 [place] [address] [place] [id number] [address] [place] [address] Mar, Hypertension I10 and Diabete s mellitus E11.9 [place] [address] [place] [id number] [address] [place] [address] Mar, Hypertension I10 and Diabete s mellitus E11.9 [place] [address] [place] [id number] [address] [place] [address] Jan, Onychomycosis B35.1 and DM n euro manif type II E11.49 [facility] [address] [facility] [id number] [address] [place] [address] Dec, [place] [address] [facility] [id number] [address] [place] [address] Dec, [place] [address] [place] [id number] [address] [place] [address] Dec, Hypertension I10 and Diabete s mellitus E11.9 [place] [address] [place] [id number] [address] [place] [address] Oct, Encounter for immunization Z 23 ; Diabetes mellitus E11.9 ; Hypertension I10 and Cigarette nicotine dependence with nicotine-induced disorder F17.219 [place] [address] [place] [id number] [address] [place] [address] Oct, Diabetes mellitus E11.9 [place] [address] [place] [id number] [address] [place] [address] Oct, Onychomycosis B35.1 ; DM chuck ro manif type II E11.49 and Hammertoe M20.40 [place] [address] [facility] [id number] [address] [place] [address] Jul, Diabetes mellitus E11.9 [place] [address] [facility] [id number] [address] [place] [address] Jul, Onychomycosis B35.1 ; Hammer toe M20.40 and DM neuro manif type II E11.49 [place] [address] [facility] [id number] [address] [place] [address] May, Diabetes mellitus E11.9 [place] [address] [facility] [id number] [address] [place] [address] May, Diabetes mellitus E11.9 [facility] [address] [facility] [id number] [address] [place] [address] Nov, Diabetes mellitus E11.9 ; Hy pertension I10 ; Reactive depression F32.9 and Encounter for immunization Z23 [place] [address] [facility] [id number] [address] [place] [address] Oct, Ulcer of other part of foot L97.509 [place] [address] [facility] [id number] [address] [place] [address] Sep, Onychomycosis B35.1 ; Ulcer of heel, left, with unspecified severity L97.429 and DM neuro manif type II E11.49 [place] [address] [facility] [id number] [address] [place] [address] Sep, [place] [address] [facility] [id number] [place] [address] Sep, Ulcer of heel, left, with un specified severity L97.429 [place] [address] [place] [id number] [address] [place] [address] Aug, Onychomycosis B35.1 ; Ulcer of heel, left, with unspecified severity L97.429 and DM neuro manif type II E11.49 [place] [address] [facility] [id number] [address] [place] [address] Jul, Diabetes mellitus E11.9 ; Hy pertension I10 ; Cigarette nicotine dependence with nicotine-induced disorder F17.219 and CAD (coronary artery disease) I25.10 [place] [address] [place] [id number] [address] [place] [address] Jul, Left leg claudication I73.9 ; Right leg claudication I73.9 ; CAD (coronary artery disease) I25.10 ; Hypertension I10 and Hyperlipidemia E78.5 [place] [address] [facility] [id number] [address] [place] [address] Jul, Ulcer of heel, left, with un specified severity L97.429 and DM neuro manif type II E11.49 [place] [address] [facility] [id number] [address] [place] [address] June, Ulcer of heel, left, with un specified severity L97.429 and Ulcer of other part of foot L97.509 [facility] [address] [place] [id number] [address] [place] [address] June, Ulcer of heel, left, with un specified severity L97.429 and Ulcer of foot, left, with unspecified severity L97.529 [facility] [address] [place] [id number] [address] [place] [address] May, [facility] [address] [place] [id number] [address] [place] [address] May, [facility] [address] [place] [id number] [place] [address] Apr, DM neuro manif type II E11.4 9 ; Hypertension I10 and Sleep apnea in adult G47.33 [facility] [address] [address] Apr, [facility] [address] [place] [id number] [place] [address] Apr, Ulcer of foot L97.509 and DM neuro manif type II E11.49 [facility] [address] [place] [id number] [place] [address] Apr, Ulcer of other part of foot L97.509 and DM neuro manif type II E11.49 [facility] [address] [address] Apr, Onychomycosis B35.1 ; Ingrow n toenail L60.0 ; Impaired circulation I99.9 and DM neuro manif type II E11.49 [facility] [address] [facility] [id number] [address] [place] [address] Mar, Ulcer of other part of foot L97.509 ; Onychomycosis B35.1 and Diabetes mellitus E11.9 [facility] [address] [facility] [id number] [address] [place] [address] Dec, Encounter for immunization Z 23 ; Hypertension I10 and Diabetes mellitus E11.9 [facility] [address] [facility] [id number] [address] [place] [address] Dec, [facility] [address] [facility] [id number] [address] [place] [address] Dec, CAD (coronary artery disease ) I25.10 ; Hypertension I10 ; Left leg claudication I73.9 and Hyperlipidemia E78.5 [facility] [address] [id number] [address] [place] [address] Nov, Onychomycosis B35.1 and Vin ertoe M20.40 [facility] [address] [id number] [address] [place] [address] Sep, Coronary atherosclerosis of unspecified type of vessel, pe[place] or graft 414.00 [facility] [address] [id number] [address] [place] [address] Sep, Coronary atherosclerosis of unspecified type of vessel, peoria or graft 414.00 and Diabetes 250.00 [facility] [address] [id number] [address] [place] [address] May, [facility] [address] [id number] [address] [place] [address] May, [facility] [address] [id number] [address] [place] [address] Apr, [facility] [address] [id number] [address] [place] [address] Apr, [facility] [address] [id number] [address] [place] [address] Apr, [facility] [address] [id number] [address] [place] [address] Apr, [facility] [address] [facility] [id number] [address] [place] [address] Mar, [facility] [address] [id number] [address] [place] [address] Mar, [facility] [address] [id number] [address] [place] [address], [place] [address] Jan, [facility] [address] [id number] [address] [place] [address], [place] [address] Jan, [facility] [address] [id number] [address] [place] [address], [place] [address] Jan, [facility] [address] [id number] [address] [place] [address], [place] [address] Jan, [facility] [address] [id number] [address] [place] [address], [place] [address] Jan, [facility] [address] [id number] [address] [place] [address], [place] [address] Jan, [facility] [address] [id number] [address] [place] [address], [place] [address] Jan, [facility] [address] [id number] [address] [place] [address], [place] [address] Jan, [facility] [address] [id number] [address] [place] [address], [place] [address] Jan, [facility] [address] [id number] [address] [place] [address], [place] [address] Jan, [facility] [address] [id number] [address] [place] [address], [place] [address] Jan, [facility] [address] [id number] [address] [place] [address], [place] [address] Nov, [facility] [address] [id number] [address] [place] [address], [place] [address] Nov, [facility] [address] [id number] [address] [place] [address], [place] [address] Nov, [facility] [address] [id number] [address] [place] [address], [place] [address] Nov, [facility] [address] [id number] [address] [place] [address], [place] [address] Nov, [facility] [address] [id number] [address] [place] [address], [place] [address] 15 Nov, 2013 [facility] [address] [id number] [address] [place] [address], [place] [address] Oct, [facility] [address] [id number] [address] [place] [address], [place] [address] Oct, [facility] [address] [id number] [address] [place] [address], [place] [address] Oct, [facility] [address] [id number] [address] [place] [address], [place] [address] Oct, [facility] [address] [id number] [address] [place] [address], [place] [address] Oct, [facility] [address] [id number] [address] [place] [address], [place] [address] Oct, [facility] [address] [id number] [address] [place] [address], [place] [address] Sep, [facility] [address] [id number] [address] [place] [address], [place] [address] Sep, [facility] [address] [id number] [address] [place] [address], [place] [address] Sep, [facility] [address] [id number] [address] [place] [address], [place] [address] Sep, [facility] [address] [id number] [address] [place] [address], [place] [address] Sep, [facility] [address] [id number] [address] [place] [address], [place] [address] Sep, [facility] [address] [id number] [address] [place] [address], [place] [address] Aug, [facility] [address] [id number] [address] [place] [address], [place] [address] Aug, [facility] [address] [id number] [address] [place] [address] Aug, [facility] [address] [id number] [address] [place] [address], [place] [address] Aug, [facility] [address] [id number] [address] [place] [address], [place] [address] Aug, [facility] [address] [id number] [address] [place] [address], [place] [address] Aug, [facility] [address] [id number] [address] [place] [address], [place] [address] Jul, [facility] [address] [id number] [address] [place] [address], [place] [address] Jul, [facility] [address] [id number] [address] [place] [address], [place] [address] Jul, [facility] [address] [id number] [address] [place] [address], [place] [address] Jul, [facility] [address] [id number] [address] [place] [address], [place] [address] June, [facility] [address] [id number] [address] [place] [address], [place] [address] June, [facility] [address] [id number] [address] [place] [address], [place] [address] June, [facility] [address] [id number] [address] [place] [address], [place] [address] June, [facility] [address] [id number] [address] [place] [address], [place] [address] May, [facility] [address] [id number] [address] [place] [address], [place] [address] May, [facility] [address] [id number] [address] [place] [address], [place] [address] May, [facility] [address] [id number] [address] [place] [address], [place] [address] May, [facility] [address] [id number] [address] [place] [address], [place] [address] May, [facility] [address] [id number] [address] [place] [address], [place] [address] May, [facility] [address] [id number] [address] [place] [address], [place] [address] Apr, [facility] [address] [id number] [address] [place] [address], [place] [address] Apr, [facility] [address] [id number] [address] [place] [address], [place] [address] Apr, [facility] [address] [id number] [address] [place] [address], [place] [address] Apr, [facility] [address] [id number] [address] [place] [address], [place] [address] Apr, [facility] [address] [id number] [address] [place] [address], [place] [address] Apr, [facility] [address] [id number] [address] [place] [address], [place] [address] Apr, [facility] [address] [id number] [address] [place] [address], [place] [address] Jan, [facility] [address] [id number] [address] [place] [address], [place] [address] Jan, [facility] [address] [id number] [address] [place] [address], [place] [address] Jan, [facility] [address] [id number] [address] [place] [address], [place] [address] Jan, [facility] [address] [id number] [address] [place] [address], [place] [address] Jan, [facility] [address] [id number] [address] [place] [address], [place] [address] Jan, [facility] [address] [id number] [address] [place] [address], [place] [address] Dec, [facility] [address] [id number] [address] [place] [address], [place] [address] Dec, [facility] [address] [id number] [address] [place] [address], [place] [address] Dec, [facility] [address] [id number] [address] [place] [address], [place] [address] Dec, [facility] [address] [id number] [address] [place] [address] Dec, [facility] [address] [id number] [address] [place] [address], [place] [address] Dec, [facility] [address] [id number] [address] [place] [address], [place] [address] Nov, [facility] [address] [id number] [address] [place] [address], [place] [address] Oct, [facility] [address] [id number] [address] [place] [address], [place] [address] Oct, [facility] [address] [id number] [address] [place] [address], [place] [address] Aug, [facility] [address] [id number] [address] [place] [address], [place] [address] Aug, [facility] [address] [id number] [address] [place] [address], [place] [address] Jul, [facility] [address] [id number] [address] [place] [address], [place] [address] June, [facility] [address] [id number] [address] [place] [address], [place] [address] Apr, [facility] [address] [id number] [address] [place] [address], [place] [address] Apr, [facility] [address] [id number] [address] [place] [address], [place] [address] Apr, [facility] [address] [id number] [address] [place] [address], [place] [address] Apr, [facility] [address] [id number] [address] [place] [address], [place] [address] Mar, [facility] [address] [id number] [address] [place] [address], [place] [address] Jan, [facility] [address] [id number] [address] [place] [address], [place] [address] Jan, [facility] [address] [id number] [address] [place] [address], [place] [address] Jan, [facility] [address] [id number] [address] [place] [address], [place] [address] Jan, [facility] [address] [id number] [address] [place] [address], [place] [address] Jan, [facility] [address] [id number] [address] [place] [address], [place] [address] Jan, [facility] [address] [id number] [address] [place] [address], [place] [address] Jan, [facility] [address] [id number] [address] [place] [address], [place] [address] Jan, [facility] [address] [id number] [address] [place] [address], [place] [address] Nov, [facility] [address] [id number] [address] [place] [address], [place] [address] Nov, [facility] [address] [id number] [address] [place] [address], [place] [address] Nov, [facility] [address] [id number] [address] [place] [address], [place] [address] Nov, [facility] [address] [id number] [address] [place] [address], [place] [address] Oct, [facility] [address] [id number] [address] [place] [address] [address] Sep, [facility] [address] [id number] [address] [place] [id number] 14 Aug, 2011 [facility] [address] [id number] [address] [place] [id number] 14 Aug, 2011 [facility] [address] [id number] [address] [place] [id number] 14 Aug, 2011 [facility] [address] [id number] [address] [place] [id number] 13 Aug, 2011 [facility] [address] [id number] [address] [place] [id number] 13 Aug, 2011 [facility] [address] [id number] [address] [place] [id number] Apr, [facility] [address] [id number] [address] [place] [id number] 16 Apr, 2011 [facility] [address] [id number] [address] [place] [id number] Apr, [facility] [address] [id number] [address] [place] [id number] Mar, [facility] [address] [id number] [address] [place] [id number] Mar, [facility] [address] [id number] [address] [place] [id number] Dec, [facility] [address] [id number] [address] [place] [id number] Dec, [facility] [address] [id number] [address] [place] [id number] Dec, IMMUNIZATIONS No Known Immunizations SOCIAL HISTORY Never Assessed REASON FOR VISIT PLAN OF CARE VITAL SIGNS MEDICATIONS Medication Instructions Dosage Frequency Start Date End Date Duration S tatus GlipiZIDE 10 mg Orally Once a day [...]
--- OUTSIDE RECORDS SUMMARY | 2019-06-21 16:34 | XMS REPORT ---
Author Author Nick SEGAL Organization [facility] [place] Address [address] [place] [address] Care Team Providers Care Institution Director Name Role Phone MARINO SEGAL Unavailable PROBLEMS Type Condition ICD9-CM Code QUK37-LU Code Onset Dates Condition S tatus SNOMED Code Problem Hyperlipidemia E78.5 Active 89562 004 Problem DM neuro manif type II E11.49 Active 66427669 Problem Diabetes mellitus E11.9 Active 73 196988 Problem Left leg claudication I73.9 Active 515094122 Problem CAD (coronary artery disease) I25.10 Active 34106915 Problem Hypertension I10 Active 4507717 3 Problem Hypoglycemia E16.2 Active 3248102 03 Problem Arthritis M19.90 Active 3428550 Problem Cigarette nicotine dependence with nicotine-induced di sorder F17.219 Active 30666916 Problem Impaired circulation I99.9 Active 50846224 Problem Hammertoe M20.40 Active 413165682 Problem Reactive depression F32.9 Active 32733815 ALLERGIES No Information ENCOUNTERS Encounter Location Date Diagnosis [facility] [place] [address] [facility] [id number] [address] [place] [phone] Jan, [facility] [place] [address] [facility] [id number] [address] [place] [address] Oct, [facility] [place] [address] [facility] [id number] [address] [place] [address] Sep, [facility] [place] [address] [facility] [id number] [address] [place] [address] Aug, Hypoglycemia E16.2 [facility] [place] [address] [facility] [id number] [address] [place] [address] Aug, [facility] [place] [address] [facility] [id number] [address] [place] [address] Jul, [place] [id number] [facility] [id number] [address] [place] [phone] Jul, Elevated blood sugar R73.9 a nd Neck pain M54.2 [place] [address] [facility] [id number] [address] [place] [address] Jul, [place] [address] [place] [id number] [place] [address] Jul, Onychomycosis B35.1 and DM n euro manif type II E11.49 [place] [address] [facility] [id number] [address] [place] [address] Jul, [place] [address] [facility] [id number] [address] [place] [address] June, Hyperlipidemia E78.5 [place] [address] [place] [id number] [place] [address] June, Diabetes mellitus E11.9 ; CA D (coronary artery disease) I25.10 ; Arthritis M19.90 and Hyperlipidemia E78.5 [place] [address] [facility] [id number] [address] [place] [address] June, [place] [address] [place] [id number] [place] [address] Apr, Onychomycosis B35.1 ; DM chuck ro manif type II E11.49 and Hammertoe M20.40 [place] [address] [facility] [id number] [address] [place] [address] Apr, Diabetes mellitus E11.9 and Hypertension I10 [place] [address] [place] [id number] [address] [place] [address] Mar, Hypertension I10 and Diabete s mellitus E11.9 [place] [address] [place] [id number] [address] [place] [phone] Mar, Hypertension I10 and Diabete s mellitus E11.9 [place] [address] [place] [id number] [address] [place] [phone] Jan, Onychomycosis B35.1 and DM n euro manif type II E11.49 [facility] [place] [address] [facility] [id number] [address] [place] [phone] Dec, [place] [address] [facility] [id number] [address] [place] [address] Dec, [place] [address] [place] [id number] [address] [place] [address] Dec, Hypertension I10 and Diabete s mellitus E11.9 [place] [address] [place] [id number] [address] [place] [address] Oct, Encounter for immunization Z 23 ; Diabetes mellitus E11.9 ; Hypertension I10 and Cigarette nicotine dependence with nicotine-induced disorder F17.219 [place] [address] [place] [id number] [address] [place] [phone] Oct, Diabetes mellitus E11.9 [place] [address] [place] [id number] [address] [place] [address] Oct, Onychomycosis B35.1 ; DM chuck ro manif type II E11.49 and Hammertoe M20.40 [place] [address] [facility] [id number] [address] [place] [address] Jul, Diabetes mellitus E11.9 [place] [address] [facility] [id number] [address] [place] [address] Jul, Onychomycosis B35.1 ; Hammer toe M20.40 and DM neuro manif type II E11.49 [place] [address] [facility] [id number] [address] [place] [address] May, Diabetes mellitus E11.9 [place] [address] [facility] [id number] [address] [place] [address] May, Diabetes mellitus E11.9 [facility] [place] [address] [facility] [id number] [address] [place] [address] Nov, Diabetes mellitus E11.9 ; Hy pertension I10 ; Reactive depression F32.9 and Encounter for immunization Z23 [place] [address] [facility] [id number] [address] [place] [address] Oct, Ulcer of other part of foot L97.509 [place] [address] [facility] [id number] [address] [place] [address] Sep, Onychomycosis B35.1 ; Ulcer of heel, left, with unspecified severity L97.429 and DM neuro manif type II E11.49 [place] [address] [facility] [id number] [address] [place] [address] Sep, [place] [address] [facility] [id number] [place] [address] Sep, Ulcer of heel, left, with un specified severity L97.429 [place] [address] [place] [id number] [address] [place] [address] Aug, Onychomycosis B35.1 ; Ulcer of heel, left, with unspecified severity L97.429 and DM neuro manif type II E11.49 [place] [address] [facility] [id number] [address] [place] [address] Jul, Diabetes mellitus E11.9 ; Hy pertension I10 ; Cigarette nicotine dependence with nicotine-induced disorder F17.219 and CAD (coronary artery disease) I25.10 [place] [address] [place] [id number] [address] [place] [address] Jul, Left leg claudication I73.9 ; Right leg claudication I73.9 ; CAD (coronary artery disease) I25.10 ; Hypertension I10 and Hyperlipidemia E78.5 [place] [address] [facility] [id number] [address] [place] [address] Jul, Ulcer of heel, left, with un specified severity L97.429 and DM neuro manif type II E11.49 [place] [address] [facility] [id number] [address] [place] [address] June, Ulcer of heel, left, with un specified severity L97.429 and Ulcer of other part of foot L97.509 [facility] [place] [address] [place] [id number] [address] [place] [address] June, Ulcer of heel, left, with un specified severity L97.429 and Ulcer of foot, left, with unspecified severity L97.529 [facility] [place] [address] [place] [id number] [address] [place] [address] May, [facility] [place] [address] [place] [id number] [address] [place] [address] May, [facility] [place] [address] [place] [id number] [place] [address] Apr, DM neuro manif type II E11.4 9 ; Hypertension I10 and Sleep apnea in adult G47.33 [facility] [place] [address] [address] Apr, [facility] [place] [address] [place] [id number] [place] [address] Apr, Ulcer of foot L97.509 and DM neuro manif type II E11.49 [facility] [place] [address] [place] [id number] [place] [address] Apr, Ulcer of other part of foot L97.509 and DM neuro manif type II E11.49 [facility] [place] [address] [address] Apr, Onychomycosis B35.1 ; Ingrow n toenail L60.0 ; Impaired circulation I99.9 and DM neuro manif type II E11.49 [facility] [place] [address] [facility] [id number] [address] [place] [address] Mar, Ulcer of other part of foot L97.509 ; Onychomycosis B35.1 and Diabetes mellitus E11.9 [facility] [place] [address] [facility] [id number] [address] [place] [address] Dec, Encounter for immunization Z 23 ; Hypertension I10 and Diabetes mellitus E11.9 [facility] [place] [address] [facility] [id number] [address] [place] [phone] Dec, [facility] [place] [address] [facility] [id number] [address] [place] [phone] Dec, CAD (coronary artery disease ) I25.10 ; Hypertension I10 ; Left leg claudication I73.9 and Hyperlipidemia E78.5 [facility] [place] [address] [id number] [address] [place] [phone] Nov, Onychomycosis B35.1 and Vin ertoe M20.40 [facility] [place] [address] [id number] [address] [place] [phone] Sep, Coronary atherosclerosis of unspecified type of vessel, [place] or graft 414.00 [facility] [place] [address] [id number] [address] [place] [address] Sep, Coronary atherosclerosis of unspecified type of vessel, [place] or graft 414.00 and Diabetes 250.00 [facility] [place] [address] [id number] [address] [place] [phone] May, [facility] [place] [address] [id number] [address] [place] [phone] May, [facility] [place] [address] [id number] [address] [place] [phone] Apr, [facility] [place] [address] [id number] [address] [place] [phone] Apr, [facility] [place] [address] [id number] [address] [place] [phone] Apr, [facility] [place] [address] [id number] [address] [place] [phone] Apr, [facility] [place] [address] [facility] [id number] [address] [place] [phone] Mar, [facility] [place] [address] [id number] [address] [place] [phone] Mar, [facility] [address] [id number] [address] [place] [address], [place] [address] Jan, [facility] [address] [id number] [address] [place] [address], [place] [address] Jan, [facility] [address] [id number] [address] [place] [address], [place] [address] Jan, [facility] [address] [id number] [address] [place] [address], [place] [address] Jan, [facility] [address] [id number] [address] [place] [address], [place] [address] Jan, [facility] [address] [id number] [address] [place] [address], [place] [address] Jan, [facility] [address] [id number] [address] [place] [address], [place] [address] Jan, [facility] [address] [id number] [address] [place] [address], [place] [address] Jan, [facility] [address] [id number] [address] [place] [address], [place] [address] Jan, [facility] [address] [id number] [address] [place] [address], [place] [address] Jan, [facility] [address] [id number] [address] [place] [address], [place] [address] Jan, [facility] [address] [id number] [address] [place] [address], [place] [address] Nov, [facility] [address] [id number] [address] [place] [address], [place] [address] Nov, [facility] [address] [id number] [address] [place] [address], [place] [address] Nov, [facility] [address] [id number] [address] [place] [address], [place] [address] Nov, [facility] [address] [id number] [address] [place] [address], [place] [address] Nov, [facility] [address] [id number] [address] [place] [address], [place] [address] 15 Nov, 2013 [facility] [address] [id number] [address] [place] [address], [place] [address] Oct, [facility] [address] [id number] [address] [place] [address], [place] [address] Oct, [facility] [address] [id number] [address] [place] [address], [place] [address] Oct, [facility] [address] [id number] [address] [place] [address], [place] [address] Oct, [facility] [address] [id number] [address] [place] [address], [place] [address] Oct, [facility] [address] [id number] [address] [place] [address], [place] [address] Oct, [facility] [address] [id number] [address] [place] [address], [place] [address] Sep, [facility] [address] [id number] [address] [place] [address], [place] [address] Sep, [facility] [address] [id number] [address] [place] [address], [place] [address] Sep, [facility] [address] [id number] [address] [place] [address], [place] [address] Sep, [facility] [address] [id number] [address] [place] [address], [place] [address] Sep, [facility] [address] [id number] [address] [place] [address], [place] [address] Sep, [facility] [address] [id number] [address] [place] [address], [place] [address] Aug, [facility] [address] [id number] [address] [place] [address], [place] [address] Aug, [facility] [address] [id number] [address] [place] [address] Aug, [facility] [address] [id number] [address] [place] [address], [place] [address] Aug, [facility] [address] [id number] [address] [place] [address], [place] [address] Aug, [facility] [address] [id number] [address] [place] [address], [place] [address] Aug, [facility] [address] [id number] [address] [place] [address], [place] [address] Jul, [facility] [address] [id number] [address] [place] [address], [place] [address] Jul, [facility] [address] [id number] [address] [place] [address], [place] [address] Jul, [facility] [address] [id number] [address] [place] [address], [place] [address] Jul, [facility] [address] [id number] [address] [place] [address], [place] [address] June, [facility] [address] [id number] [address] [place] [address], [place] [address] June, [facility] [address] [id number] [address] [place] [address], [place] [address] June, [facility] [address] [id number] [address] [place] [address], [place] [address] June, [facility] [address] [id number] [address] [place] [address], [place] [address] May, [facility] [address] [id number] [address] [place] [address], [place] [address] May, [facility] [address] [id number] [address] [place] [address], [place] [address] May, [facility] [address] [id number] [address] [place] [address], [place] [address] May, [facility] [address] [id number] [address] [place] [address], [place] [address] May, [facility] [address] [id number] [address] [place] [address], [place] [address] May, [facility] [address] [id number] [address] [place] [address], [place] [address] Apr, [facility] [address] [id number] [address] [place] [address], [place] [address] Apr, [facility] [address] [id number] [address] [place] [address], [place] [address] Apr, [facility] [address] [id number] [address] [place] [address], [place] [address] Apr, [facility] [address] [id number] [address] [place] [address], [place] [address] Apr, [facility] [address] [id number] [address] [place] [address], [place] [address] Apr, [facility] [address] [id number] [address] [place] [address], [place] [address] Apr, [facility] [address] [id number] [address] [place] [address], [place] [address] Jan, [facility] [address] [id number] [address] [place] [address], [place] [address] Jan, [facility] [address] [id number] [address] [place] [address], [place] [address] Jan, [facility] [address] [id number] [address] [place] [address], [place] [address] Jan, [facility] [address] [id number] [address] [place] [address], [place] [address] Jan, [facility] [address] [id number] [address] [place] [address], [place] [address] Jan, [facility] [address] [id number] [address] [place] [address], [place] [address] Dec, [facility] [address] [id number] [address] [place] [address], [place] [address] Dec, [facility] [address] [id number] [address] [place] [address], [place] [address] Dec, [facility] [address] [id number] [address] [place] [address], [place] [address] Dec, [facility] [address] [id number] [address] [place] [address] Dec, [facility] [address] [id number] [address] [place] [address], [place] [address] Dec, [facility] [address] [id number] [address] [place] [address], [place] [address] Nov, [facility] [address] [id number] [address] [place] [address], [place] [address] Oct, [facility] [address] [id number] [address] [place] [address], [place] [address] Oct, [facility] [address] [id number] [address] [place] [address], [place] [address] Aug, [facility] [address] [id number] [address] [place] [address], [place] [address] Aug, [facility] [address] [id number] [address] [place] [address], [place] [address] Jul, [facility] [address] [id number] [address] [place] [address], [place] [address] June, [facility] [address] [id number] [address] [place] [address], [place] [address] Apr, [facility] [address] [id number] [address] [place] [address], [place] [address] Apr, [facility] [address] [id number] [address] [place] [address], [place] [address] Apr, [facility] [address] [id number] [address] [place] [address], [place] [address] Apr, [facility] [address] [id number] [address] [place] [address], [place] [address] Mar, [facility] [address] [id number] [address] [place] [address], [place] [address] Jan, [facility] [address] [id number] [address] [place] [address], [place] [address] Jan, [facility] [address] [id number] [address] [place] [address], [place] [address] Jan, [facility] [address] [id number] [address] [place] [address], [place] [address] Jan, [facility] [address] [id number] [address] [place] [address], [place] [address] Jan, [facility] [address] [id number] [address] [place] [address], [place] [address] Jan, [facility] [address] [id number] [address] [place] [address], [place] [address] Jan, [facility] [address] [id number] [address] [place] [address], [place] [address] Jan, [facility] [address] [id number] [address] [place] [address], [place] [address] Nov, [facility] [address] [id number] [address] [place] [address], [place] [address] Nov, [facility] [address] [id number] [address] [place] [address], [place] [address] Nov, [facility] [address] [id number] [address] [place] [address], [place] [address] Nov, [facility] [address] [id number] [address] [place] [address], [place] [address] Oct, [facility] [address] [id number] [address] [place] [address] [address] Sep, [facility] [place] [address] [id number] [address] [place] [id number] 14 Aug, 2011 [facility] [place] [address] [id number] [address] [place] [id number] 14 Aug, 2011 [facility] [place] [address] [id number] [address] [place] [id number] 14 Aug, 2011 [facility] [place] [address] [id number] [address] [place] [id number] 13 Aug, 2011 [facility] [place] [address] [id number] [address] [place] [id number] 13 Aug, 2011 [facility] [place] [address] [id number] [address] [place] [id number] Apr, [facility] [place] [address] [id number] [address] [place] [id number] 16 Apr, 2011 [facility] [place] [address] [id number] [address] [place] [id number] Apr, [facility] [place] [address] [id number] [address] [place] [id number] Mar, [facility] [facility], [place] [address] [id number] [address] [place] [address] Mar, [facility] [place] [address] [id number] [address] [place] [address] Dec, [facility] [place] [address] [id number] [address] [place] [address] Dec, [facility] [place] [address] [facility] [id number] [address] [place] [address] Dec, IMMUNIZATIONS No Known Immunizations SOCIAL HISTORY Never Assessed REASON FOR VISIT 3 mo f/u. Consult Dr. Segal;Vladislav RT(R) PLAN OF CARE Activity Details Follow Up 3 Months Reason: VITAL SIGNS Height 75 in 2017-08-07 Blood pressure systolic 118 mmHg 2017-08-07 Blood pressure diastolic 78 mmHg 2017-08-07 MEDICATIONS Unknown Medications RESULTS No Results PROCEDURES Procedure Date Ordered Result Body Site DEBRIDE NAIL, 6 OR MORE August 07, 2017 INSTRUCTIONS MEDICATIONS ADMINISTERED No Known Medications [...]
--- OUTSIDE RECORDS SUMMARY | 2019-06-21 16:34 | XMS REPORT ---
Author Author Nick ABDI Organization [facility] Address [address] [place] [address] Care Team Providers Care Credit Control Manager Name Role Phone ELVIN ABDI Unavailable PROBLEMS Type Condition ICD9-CM Code OEI51-IH Code Onset Dates Condition S tatus SNOMED Code Problem Hyperlipidemia E78.5 Active 51633 004 Problem DM neuro manif type II E11.49 Active 99713862 Problem Diabetes mellitus E11.9 Active 73 142399 Problem Left leg claudication I73.9 Active 268187737 Problem CAD (coronary artery disease) I25.10 Active 16576922 Problem Hypertension I10 Active 5917125 3 Problem Hypoglycemia E16.2 Active 2800426 03 Problem Arthritis M19.90 Active 2576433 Problem Cigarette nicotine dependence with nicotine-induced di sorder F17.219 Active 20378763 Problem Impaired circulation I99.9 Active 48901341 Problem Hammertoe M20.40 Active 527963453 Problem Reactive depression F32.9 Active 23629148 ALLERGIES No Information ENCOUNTERS Encounter Location Date Diagnosis [facility] [address] [facility] [id number] [address] [place] [address] Jan, [facility] [address] [facility] [id number] [address] [place] [address] Oct, [facility] [address] [facility] [id number] [address] [place] [address] Sep, [facility] [address] [facility] [id number] [address] [place] [address] Sep, [facility] [address] [facility] [id number] [address] [place] [address] Aug, Hypoglycemia E16.2 [facility] [address] [facility] [id number] [address] [place] [address] Aug, [place] [id number] [address] Jul, [place] [address] [address] Jul, Elevated blood sugar R73.9 a nd Neck pain M54.2 [place] [address] [address] Jul, [place] [address] [address] Jul, Onychomycosis B35.1 and DM n euro manif type II E11.49 [place] [address] [address] Jul, [place] [address] [address] June, Hyperlipidemia E78.5 [place] [address] [address] June, Diabetes mellitus E11.9 ; CA D (coronary artery disease) I25.10 ; Arthritis M19.90 and Hyperlipidemia E78.5 [place] [address] [address] June, [place] [address] [address] Apr, Onychomycosis B35.1 ; DM chuck ro manif type II E11.49 and Hammertoe M20.40 [place] [address] [address] Apr, Diabetes mellitus E11.9 and Hypertension I10 [place] [address] [address] Mar, Hypertension I10 and Diabete s mellitus E11.9 [place] [address] [address] Mar, Hypertension I10 and Diabete s mellitus E11.9 [facility] [address] [place] [id number] [address] [place] [address] Jan, Onychomycosis B35.1 and DM n euro manif type II E11.49 [facility] [address] [place] [id number] [address] [place] [address] Dec, [place] [address] [address] Dec, [place] [address] [place] [id number] [place] [address] Dec, Hypertension I10 and Diabete s mellitus E11.9 [place] [address] [address] Oct, Encounter for immunization Z 23 ; Diabetes mellitus E11.9 ; Hypertension I10 and Cigarette nicotine dependence with nicotine-induced disorder F17.219 [place] [address] [address] Oct, Diabetes mellitus E11.9 [place] [address] [address] Oct, Onychomycosis B35.1 ; DM chuck ro manif type II E11.49 and Hammertoe M20.40 [place] [address] [address] Jul, Diabetes mellitus E11.9 [place] [address] [place] [address] Jul, Onychomycosis B35.1 ; Hammer toe M20.40 and DM neuro manif type II E11.49 [place] [address] [place] [id number] [address] [place] [address] May, Diabetes mellitus E11.9 [place] [address] [place] [id number] [address] [place] [address] May, Diabetes mellitus E11.9 [place] [address] [address] Nov, Diabetes mellitus E11.9 ; Hy pertension I10 ; Reactive depression F32.9 and Encounter for immunization Z23 [place] [address] [address] Oct, Ulcer of other part of foot L97.[address] [address] Sep, Onychomycosis B35.1 ; Ulcer of heel, left, with unspecified severity L97.429 and DM neuro manif type II E11.[address] [address] Sep, [address] [address] Sep, Ulcer of heel, left, with un specified severity L97.[address] [address] Aug, Onychomycosis B35.1 ; Ulcer of heel, left, with unspecified severity L97.429 and DM neuro manif type II E11.[address] [address] Jul, Diabetes mellitus E11.9 ; Hy pertension I10 ; Cigarette nicotine dependence with nicotine-induced disorder F17.219 and CAD (coronary artery disease) I25.[address] [address] Jul, Left leg claudication I73.9 ; Right leg claudication I73.9 ; CAD (coronary artery disease) I25.10 ; Hypertension I10 and Hyperlipidemia E78.[address] [address] Jul, Ulcer of heel, left, with un specified severity L97.429 and DM neuro manif type II E11.[address] [place] [address] June, Ulcer of heel, left, with un specified severity L97.429 and Ulcer of other part of foot L97.509 [place] [address] [address] June, Ulcer of heel, left, with un specified severity L97.429 and Ulcer of foot, left, with unspecified severity L97.529 [place] [address] [address] May, [facility] [address] [address] May, [place] [address] [address] Apr, DM neuro manif type II E11.4 9 ; Hypertension I10 and Sleep apnea in adult G47.33 [place] [address] [address] Apr, [place] [address] [address] Apr, Ulcer of foot L97.509 and DM neuro manif type II E11.49 [place] [address] [place] [id number] [place] [address] Apr, Ulcer of other part of foot L97.509 and DM neuro manif type II E11.49 [place] [address] [address] Apr, Onychomycosis B35.1 ; Ingrow n toenail L60.0 ; Impaired circulation I99.9 and DM neuro manif type II E11.49 [place] [address] [place] [id number] [place] [address] Mar, Ulcer of other part of foot L97.509 ; Onychomycosis B35.1 and Diabetes mellitus E11.9 [place] [address] [address] Dec, Encounter for immunization Z 23 ; Hypertension I10 and Diabetes mellitus E11.9 [place] [address] [address] Dec, [place] [address] [address] Dec, CAD (coronary artery disease ) I25.10 ; Hypertension I10 ; Left leg claudication I73.9 and Hyperlipidemia E78.5 [place] [address] [address] Nov, Onychomycosis B35.1 and Vin ertoe M20.40 [place] [address] [address] Sep, Coronary atherosclerosis of unspecified type of vessel, robinson or graft 414.00 [place] [address] [address] Sep, Coronary atherosclerosis of unspecified type of vessel, robinson or graft 414.00 and Diabetes 250.00 [place] [address] [place] [id number] [address] [place] [address] May, [place] [address] [address] May, [facility] [address] [place] [id number] [address] [place] [address] Apr, [facility] [address] [address] Apr, [facility] [address] [place] [id number] [address] [place] [address] Apr, [facility] [address] [place] [id number] [address] [place] [address] Apr, [facility] [address] [place] [id number] [address] [place] [address] Mar, [facility] [address] [id number] [address] [place] [address], [place] [address] Mar, [facility] [address] [id number] [address] [place] [address], [place] [address] Jan, [facility] [address] [id number] [address] [place] [address], [place] [address] Jan, [facility] [address] [id number] [address] [place] [address], [place] [address] Jan, [facility] [address] [id number] [address] [place] [address], [place] [address] Jan, [facility] [address] [id number] [address] [place] [address], [place] [address] Jan, [facility] [address] [id number] [address] [place] [address], [place] [address] Jan, [facility] [address] [id number] [address] [place] [address], [place] [address] Jan, [facility] [address] [id number] [address] [place] [address], [place] [address] Jan, [facility] [address] [id number] [address] [place] [address], [place] [address] Jan, [facility] [address] [id number] [address] [place] [address], [place] [address] Jan, [facility] [address] [id number] [address] [place] [address], [place] [address] Jan, [facility] [address] [id number] [address] [place] [address], [place] [address] Nov, [facility] [address] [id number] [address] [place] [address], [place] [address] Nov, [facility] [address] [id number] [address] [place] [address], [place] [address] Nov, [facility] [address] [id number] [address] [place] [address], [place] [address] Nov, [facility] [address] [id number] [address] [place] [address], [place] [address] 15 Nov, 2013 [facility] [address] [id number] [address] [place] [address], [place] [address] 15 Nov, 2013 [facility] [address] [id number] [address] [place] [address], [place] [address] 19 Oct, 2013 [facility] [address] [id number] [address] [place] [address], [place] [address] 19 Oct, 2013 [facility] [address] [id number] [address] [place] [address], [place] [address] 19 Oct, 2013 [facility] [address] [id number] [address] [place] [address], [place] [address] Oct, [facility] [address] [id number] [address] [place] [address], [place] [address] Oct, [facility] [address] [id number] [address] [place] [address], [place] [address] 05 Oct, 2013 [facility] [address] [id number] [address] [place] [address], [place] [address] Sep, [facility] [address] [id number] [address] [place] [address], [place] [address] Sep, [facility] [address] [id number] [address] [place] [address], [place] [address] Sep, [facility] [address] [id number] [address] [place] [address] Sep, [facility] [address] [id number] [address] [place] [address], [place] [address] Sep, [facility] [address] [id number] [address] [place] [address], [place] [address] Sep, [facility] [address] [id number] [address] [place] [address], [place] [address] Aug, [facility] [address] [id number] [address] [place] [address] Aug, [facility] [address] [id number] [facility] [address] Aug, [facility] [address] [id number] [address] [place] [address], [place] [address] Aug, [facility] [address] [id number] [address] [place] [address], [place] [address] Aug, [facility] [address] [id number] [address] [place] [address], [place] [address] Aug, [facility] [address] [id number] [address] [place] [address], [place] [address] Jul, [facility] [address] [id number] [address] [place] [address], [place] [address] Jul, [facility] [address] [id number] [address] [place] [address], [place] [address] Jul, [facility] [address] [id number] [address] [place] [address], [place] [address] Jul, [facility] [address] [id number] [address] [place] [address], [place] [address] June, [facility] [address] [id number] [address] [place] [address], [place] [address] June, [facility] [address] [id number] [address] [place] [address], [place] [address] June, [facility] [address] [id number] [address] [place] [address], [place] [address] June, [facility] [address] [id number] [address] [place] [address], [place] [address] May, [facility] [address] [id number] [address] [place] [address], [place] [address] May, [facility] [address] [id number] [address] [place] [address], [place] [address] May, [facility] [address] [id number] [address] [place] [address], [place] [address] May, [facility] [address] [id number] [address] [place] [address], [place] [address] May, [facility] [address] [id number] [address] [place] [address], [place] [address] May, [facility] [address] [id number] [address] [place] [address], [place] [address] Apr, [facility] [address] [id number] [address] [place] [address], [place] [address] Apr, [facility] [address] [id number] [address] [place] [address], [place] [address] Apr, [facility] [address] [id number] [address] [place] [address], [place] [address] Apr, [facility] [address] [id number] [address] [place] [address], [place] [address] Apr, [facility] [address] [id number] [address] [place] [address], [place] [address] Apr, [facility] [address] [id number] [address] [place] [address], [place] [address] Apr, [facility] [address] [id number] [address] [place] [address], [place] [address] Jan, [facility] [address] [id number] [address] [place] [address], [place] [address] Jan, [facility] [address] [id number] [address] [place] [address], [place] [address] Jan, [facility] [address] [id number] [address] [place] [address], [place] [address] Jan, [facility] [address] [id number] [address] [place] [address], [place] [address] Jan, [facility] [address] [id number] [address] [place] [address], [place] [address] Jan, [facility] [address] [id number] [address] [place] [address], [place] [address] Dec, [facility] [address] [id number] [address] [place] [address], [place] [address] Dec, [facility] [address] [id number] [address] [place] [address], [place] [address] Dec, [facility] [address] [id number] [address] [place] [address], [place] [address] Dec, [facility] [address] [id number] [address] [place] [address], [place] [address] Dec, [facility] [address] [id number] [address] [place] [address], [place] [address] Dec, [facility] [address] [id number] [address] [place] [address], [place] [address] Nov, [facility] [address] [id number] [address] [place] [address], [place] [address] Oct, [facility] [address] [id number] [address] [place] [address], [place] [address] Oct, [facility] [address] [id number] [address] [place] [address], [place] [address] Aug, [facility] [address] [id number] [address] [place] [address], [place] [address] Aug, [facility] [address] [id number] [address] [place] [address], [place] [address] Jul, [facility] [address] [id number] [address] [place] [address], [place] [address] June, [facility] [address] [id number] [address] [place] [address], [place] [address] Apr, [facility] [address] [id number] [address] [place] [address], [place] [address] Apr, [facility] [address] [id number] [address] [place] [address], [place] [address] 08 Apr, 2012 [facility] [address] [id number] [address] [place] [address], [place] [address] 04 Apr, 2012 [facility] [address] [id number] [address] [place] [address], [place] [address] Mar, [facility] [address] [id number] [address] [place] [address], [place] [address] Jan, [facility] [address] [id number] [address] [place] [address], [place] [address] Jan, [facility] [address] [id number] [address] [place] [address], [place] [address] Jan, [facility] [address] [id number] [address] [place] [address], [place] [address] Jan, [facility] [address] [id number] [address] [place] [address], [place] [address] Jan, [facility] [address] [id number] [address] [place] [address], [place] [address] Jan, [facility] [address] [id number] [address] [place] [address], [place] [address] Jan, [facility] [address] [id number] [address] [place] [address], [place] [address] Jan, [facility] [address] [id number] [address] [place] [address], [place] [address] Nov, [facility] [address] [id number] [address] [place] [address], [place] [address] Nov, [facility] [address] [id number] [address] [place] [address], [place] [address] Nov, [facility] [address] [id number] [address] [place] [address], [place] [address] Nov, [facility] [address] [id number] [address] [place] [address] [address] Oct, [facility] [address] [id number] [address] [place] [address] Sep, [facility] [address] [id number] [address] [place] [address] 14 Aug, 2011 [facility] [address] [facility] [id number] [address] [place] [address] 14 Aug, 2011 [facility] [address] [id number] [address] [place] [address] 14 Aug, 2011 [facility] [address] [id number] [address] [place] [address] Jul, [facility] [address] [id number] [address] [place] [phone] Jul, [facility] [address] [id number] [address] [place] [phone] Apr, [facility] [address] [id number] [address] [place] [id number] 16 Apr, 2011 [facility] [address] [id number] [address] [place] [phone] Apr, [facility] [address] [id number] [address] [place] [phone] Mar, [facility] [address] [id number] [address] [place] [id number] Mar, [facility] [address] [id number] [address] [place] [id number] Dec, [facility] [address] [id number] [address] [place] [phone] Dec, [facility] [address] [facility] [id number] [address] [place] [phone] Dec, IMMUNIZATIONS No Known Immunizations SOCIAL HISTORY [...]
--- OUTSIDE RECORDS SUMMARY | 2019-06-21 16:35 | XMS REPORT ---
Author Author Nick SEGAL [facility] eClinicalWorks Address Unknown Phone Unavailable Care Team Providers Care Brazer Assembler Name Role Phone MARINO SEGAL CP Unavailable Allergies No Known Allergies Problems Problem Type Condition Code Onset Dates Condition Statu s Problem Unspecified hereditary and idiopathic peripheral neuro jesse 356.9 Active Problem Coronary atherosclerosis of unspecified type of vessel, [place] or graft 414.00 Active Problem Reflux esophagitis 530.11 Active Problem DM neuro manif type II E11.49 Activ e Problem Diabetes mellitus E11.9 Active Problem Impaired circulation I99.9 Active Problem Left leg claudication I73.9 Active Problem Hyperlipidemia E78.5 Active Problem CAD (coronary artery disease) I25.10 Active Problem Hypertension I10 Active Assessment DM neuro manif type II E11.49 Activ e Assessment Onychomycosis B35.1 Active Problem Other hammer toe (acquired) 735.4 Active Assessment Impaired circulation I99.9 Active Problem Dermatophytosis of nail 110.1 Acti ve Assessment Ingrown toenail L60.0 Active Problem Chronic airway obstruction, not elsewhere classified 4 96 Active Medications Medication Code System Code Instructions Start Date End Date Status Dosage Clindamycin HCl [facility] [address]-34 150 MG Orally every 6 hrs b 2015Apr 20, 2015 1 capsule Procedures Procedure Coding System Code Date Office Visit, Est Pt., Level 3 CPT-4 44398 F eb 2015 X-RAY EXAM OF FOOT CPT-4 45768 Apr 13, 2015 Vital Signs Date/Time: Apr 13, 2015 Blood Pressure Diastolic 80 mmHg Blood Pressure Systolic 134 mmHg Height 75 in Results No Known Results Summary Purpose eClinicalWorks Submission
--- OUTSIDE RECORDS SUMMARY | 2019-06-21 16:35 | XMS REPORT ---
Author Author Nick ABDI Organization [facility] Address [address] [place] [address] Care Team Providers Care Office Technology Professor Name Role Phone ELVIN BADI Unavailable PROBLEMS Type Condition ICD9-CM Code QKQ05-LB Code Onset Dates Condition S tatus SNOMED Code Problem Hyperlipidemia E78.5 Active 23475 004 Problem DM neuro manif type II E11.49 Active 29989938 Problem Diabetes mellitus E11.9 Active 73 573716 Problem Left leg claudication I73.9 Active 852578686 Problem CAD (coronary artery disease) I25.10 Active 30871386 Problem Hypertension I10 Active 3519487 3 Problem Hypoglycemia E16.2 Active 2602138 03 Problem Arthritis M19.90 Active 9665954 Problem Cigarette nicotine dependence with nicotine-induced di sorder F17.219 Active 93483066 Problem Impaired circulation I99.9 Active 88914151 Problem Hammertoe M20.40 Active 757572711 Problem Reactive depression F32.9 Active 12519556 ALLERGIES No Information ENCOUNTERS Encounter Location Date Diagnosis [facility] [address] [facility] [place] [id number] [address] [place] [address] Jan, [facility] [address] [facility] [id number] [address] [place] [address] Oct, [facility] [address] [facility] [id number] [address] [place] [address] Sep, [facility] [address] [facility] [place] [id number] [address] [place] [address] Sep, [facility] [address] [facility] [id number] [address] [place] [address] Aug, Hypoglycemia E16.2 [facility] [address] [facility] [id number] [address] [place] [address] Aug, [place] [id number] [address] Jul, [place] [address] [address] Jul, Elevated blood sugar R73.9 a nd Neck pain M54.2 [place] [address] [address] Jul, [place] [address] [address] Jul, Onychomycosis B35.1 and DM n euro manif type II E11.49 [place] [address] [address] Jul, [place] [address] [address] June, Hyperlipidemia E78.5 [place] [address] [address] June, Diabetes mellitus E11.9 ; CA D (coronary artery disease) I25.10 ; Arthritis M19.90 and Hyperlipidemia E78.5 [place] [address] [address] June, [place] [address] [address] Apr, Onychomycosis B35.1 ; DM chuck ro manif type II E11.49 and Hammertoe M20.40 [place] [address] [address] Apr, Diabetes mellitus E11.9 and Hypertension I10 [place] [address] [address] Mar, Hypertension I10 and Diabete s mellitus E11.9 [place] [address] [address] Mar, Hypertension I10 and Diabete s mellitus E11.9 [facility] [address] [place] [id number] [address] [place] [address] Jan, Onychomycosis B35.1 and DM n euro manif type II E11.49 [facility] [address] [place] [id number] [address] [place] [address] Dec, [place] [address] [address] Dec, [place] [address] [place] [id number] [place] [address] Dec, Hypertension I10 and Diabete s mellitus E11.9 [place] [address] [address] Oct, Encounter for immunization Z 23 ; Diabetes mellitus E11.9 ; Hypertension I10 and Cigarette nicotine dependence with nicotine-induced disorder F17.219 [place] [address] [address] Oct, Diabetes mellitus E11.9 [place] [address] [address] Oct, Onychomycosis B35.1 ; DM chuck ro manif type II E11.49 and Hammertoe M20.40 [place] [address] [address] Jul, Diabetes mellitus E11.9 [place] [address] [place] [address] Jul, Onychomycosis B35.1 ; Hammer toe M20.40 and DM neuro manif type II E11.49 [place] [address] [place] [id number] [address] [place] [address] May, Diabetes mellitus E11.9 [place] [address] [place] [id number] [address] [place] [address] May, Diabetes mellitus E11.9 [place] [address] [address] Nov, Diabetes mellitus E11.9 ; Hy pertension I10 ; Reactive depression F32.9 and Encounter for immunization Z23 [place] [address] [address] Oct, Ulcer of other part of foot L97.[address] [address] Sep, Onychomycosis B35.1 ; Ulcer of heel, left, with unspecified severity L97.429 and DM neuro manif type II E11.[address] [address] Sep, [address] [address] Sep, Ulcer of heel, left, with un specified severity L97.[address] [address] Aug, Onychomycosis B35.1 ; Ulcer of heel, left, with unspecified severity L97.429 and DM neuro manif type II E11.[address] [address] Jul, Diabetes mellitus E11.9 ; Hy pertension I10 ; Cigarette nicotine dependence with nicotine-induced disorder F17.219 and CAD (coronary artery disease) I25.[address] [address] Jul, Left leg claudication I73.9 ; Right leg claudication I73.9 ; CAD (coronary artery disease) I25.10 ; Hypertension I10 and Hyperlipidemia E78.[address] [address] Jul, Ulcer of heel, left, with un specified severity L97.429 and DM neuro manif type II E11.[address] [place] [address] June, Ulcer of heel, left, with un specified severity L97.429 and Ulcer of other part of foot L97.509 [place] [address] [address] June, Ulcer of heel, left, with un specified severity L97.429 and Ulcer of foot, left, with unspecified severity L97.529 [place] [address] [address] May, [facility] [address] [address] May, [place] [address] [address] Apr, DM neuro manif type II E11.4 9 ; Hypertension I10 and Sleep apnea in adult G47.33 [place] [address] [address] Apr, [place] [address] [address] Apr, Ulcer of foot L97.509 and DM neuro manif type II E11.49 [place] [address] [place] [id number] [place] [address] Apr, Ulcer of other part of foot L97.509 and DM neuro manif type II E11.49 [place] [address] [address] Apr, Onychomycosis B35.1 ; Ingrow n toenail L60.0 ; Impaired circulation I99.9 and DM neuro manif type II E11.49 [place] [address] [place] [id number] [place] [address] Mar, Ulcer of other part of foot L97.509 ; Onychomycosis B35.1 and Diabetes mellitus E11.9 [place] [address] [address] Dec, Encounter for immunization Z 23 ; Hypertension I10 and Diabetes mellitus E11.9 [place] [address] [address] Dec, [place] [address] [address] Dec, CAD (coronary artery disease ) I25.10 ; Hypertension I10 ; Left leg claudication I73.9 and Hyperlipidemia E78.5 [place] [address] [address] Nov, Onychomycosis B35.1 and Vin ertoe M20.40 [place] [address] [address] Sep, Coronary atherosclerosis of unspecified type of vessel, diomede or graft 414.00 [place] [address] [address] Sep, Coronary atherosclerosis of unspecified type of vessel, diomede or graft 414.00 and Diabetes 250.00 [place] [address] [place] [id number] [place] [address] May, [place] [address] [address] May, [facility] [address] [place] [id number] [address] [place] [address] Apr, [facility] [address] [address] Apr, [facility] [address] [place] [id number] [address] [place] [address] Apr, [facility] [address] [place] [id number] [address] [place] [address] Apr, [facility] [address] [place] [id number] [address] [place] [address] Mar, [facility] [address] [id number] [address] [place] [address], [place] [address] Mar, [facility] [address] [id number] [address] [place] [address], [place] [address] Jan, [facility] [address] [id number] [address] [place] [address], [place] [address] Jan, [facility] [address] [id number] [address] [place] [address], [place] [address] Jan, [facility] [address] [id number] [address] [place] [address], [place] [address] Jan, [facility] [address] [id number] [address] [place] [address], [place] [address] Jan, [facility] [address] [id number] [address] [place] [address], [place] [address] Jan, [facility] [address] [id number] [address] [place] [address], [place] [address] Jan, [facility] [address] [id number] [address] [place] [address], [place] [address] Jan, [facility] [address] [id number] [address] [place] [address], [place] [address] Jan, [facility] [address] [id number] [address] [place] [address], [place] [address] Jan, [facility] [address] [id number] [address] [place] [address], [place] [address] Jan, [facility] [address] [id number] [address] [place] [address], [place] [address] Nov, [facility] [address] [id number] [address] [place] [address], [place] [address] Nov, [facility] [address] [id number] [address] [place] [address], [place] [address] Nov, [facility] [address] [id number] [address] [place] [address], [place] [address] Nov, [facility] [address] [id number] [address] [place] [address], [place] [address] 15 Nov, 2013 [facility] [address] [id number] [address] [place] [address], [place] [address] 15 Nov, 2013 [facility] [address] [id number] [address] [place] [address], [place] [address] 19 Oct, 2013 [facility] [address] [id number] [address] [place] [address], [place] [address] 19 Oct, 2013 [facility] [address] [id number] [address] [place] [address], [place] [address] 19 Oct, 2013 [facility] [address] [id number] [address] [place] [address], [place] [address] Oct, [facility] [address] [id number] [address] [place] [address], [place] [address] Oct, [facility] [address] [id number] [address] [place] [address], [place] [address] 05 Oct, 2013 [facility] [address] [id number] [address] [place] [address], [place] [address] Sep, [facility] [address] [id number] [address] [place] [address], [place] [address] Sep, [facility] [address] [id number] [address] [place] [address], [place] [address] Sep, [facility] [address] [id number] [address] [place] [address] Sep, [facility] [address] [id number] [address] [place] [address], [place] [address] Sep, [facility] [address] [id number] [address] [place] [address], [place] [address] Sep, [facility] [address] [id number] [address] [place] [address], [place] [address] Aug, [facility] [address] [id number] [address] [place] [address] Aug, [facility] [address] [id number] [facility] [address] Aug, [facility] [address] [id number] [address] [place] [address], [place] [address] Aug, [facility] [address] [id number] [address] [place] [address], [place] [address] Aug, [facility] [address] [id number] [address] [place] [address], [place] [address] Aug, [facility] [address] [id number] [address] [place] [address], [place] [address] Jul, [facility] [address] [id number] [address] [place] [address], [place] [address] Jul, [facility] [address] [id number] [address] [place] [address], [place] [address] Jul, [facility] [address] [id number] [address] [place] [address], [place] [address] Jul, [facility] [address] [id number] [address] [place] [address], [place] [address] June, [facility] [address] [id number] [address] [place] [address], [place] [address] June, [facility] [address] [id number] [address] [place] [address], [place] [address] June, [facility] [address] [id number] [address] [place] [address], [place] [address] June, [facility] [address] [id number] [address] [place] [address], [place] [address] May, [facility] [address] [id number] [address] [place] [address], [place] [address] May, [facility] [address] [id number] [address] [place] [address], [place] [address] May, [facility] [address] [id number] [address] [place] [address], [place] [address] May, [facility] [address] [id number] [address] [place] [address], [place] [address] May, [facility] [address] [id number] [address] [place] [address], [place] [address] May, [facility] [address] [id number] [address] [place] [address], [place] [address] Apr, [facility] [address] [id number] [address] [place] [address], [place] [address] Apr, [facility] [address] [id number] [address] [place] [address], [place] [address] Apr, [facility] [address] [id number] [address] [place] [address], [place] [address] Apr, [facility] [address] [id number] [address] [place] [address], [place] [address] Apr, [facility] [address] [id number] [address] [place] [address], [place] [address] Apr, [facility] [address] [id number] [address] [place] [address], [place] [address] Apr, [facility] [address] [id number] [address] [place] [address], [place] [address] Jan, [facility] [address] [id number] [address] [place] [address], [place] [address] Jan, [facility] [address] [id number] [address] [place] [address], [place] [address] Jan, [facility] [address] [id number] [address] [place] [address], [place] [address] Jan, [facility] [address] [id number] [address] [place] [address], [place] [address] Jan, [facility] [address] [id number] [address] [place] [address], [place] [address] Jan, [facility] [address] [id number] [address] [place] [address], [place] [address] Dec, [facility] [address] [id number] [address] [place] [address], [place] [address] Dec, [facility] [address] [id number] [address] [place] [address], [place] [address] Dec, [facility] [address] [id number] [address] [place] [address], [place] [address] Dec, [facility] [address] [id number] [address] [place] [address], [place] [address] Dec, [facility] [address] [id number] [address] [place] [address], [place] [address] Dec, [facility] [address] [id number] [address] [place] [address], [place] [address] Nov, [facility] [address] [id number] [address] [place] [address], [place] [address] Oct, [facility] [address] [id number] [address] [place] [address], [place] [address] Oct, [facility] [address] [id number] [address] [place] [address], [place] [address] Aug, [facility] [address] [id number] [address] [place] [address], [place] [address] Aug, [facility] [address] [id number] [address] [place] [address], [place] [address] Jul, [facility] [address] [id number] [address] [place] [address], [place] [address] June, [facility] [address] [id number] [address] [place] [address], [place] [address] Apr, [facility] [address] [id number] [address] [place] [address], [place] [address] Apr, [facility] [address] [id number] [address] [place] [address], [place] [address] 08 Apr, 2012 [facility] [address] [id number] [address] [place] [address], [place] [address] 04 Apr, 2012 [facility] [address] [id number] [address] [place] [address], [place] [address] Mar, [facility] [address] [id number] [address] [place] [address], [place] [address] Jan, [facility] [address] [id number] [address] [place] [address], [place] [address] Jan, [facility] [address] [id number] [address] [place] [address], [place] [address] Jan, [facility] [address] [id number] [address] [place] [address], [place] [address] Jan, [facility] [address] [id number] [address] [place] [address], [place] [address] Jan, [facility] [address] [id number] [address] [place] [address], [place] [address] Jan, [facility] [address] [id number] [address] [place] [address], [place] [address] Jan, [facility] [address] [id number] [address] [place] [address], [place] [address] Jan, [facility] [address] [id number] [address] [place] [address], [place] [address] Nov, [facility] [address] [id number] [address] [place] [address], [place] [address] Nov, [facility] [address] [id number] [address] [place] [address], [place] [address] Nov, [facility] [address] [id number] [address] [place] [address], [place] [address] Nov, [facility] [address] [id number] [address] [place] [address] [address] Oct, [facility] [address] [id number] [address] [place] [address] Sep, [facility] [address] [id number] [address] [place] [address] 14 Aug, 2011 [facility] [address] [id number] [address] [place] [address] 14 Aug, 2011 [facility] [address] [id number] [address] [place] [address] 14 Aug, 2011 [facility] [address] [id number] [address] [place] [address] 13 Aug, 2011 [facility] [address] [id number] [address] [place] [phone] Jul, [facility] [address] [id number] [address] [place] [phone] Apr, [facility] [address] [id number] [address] [place] [phone] 16 Apr, 2011 [facility] [address] [id number] [address] [place] [phone] Apr, [facility] [address] [id number] [address] [place] [phone] Mar, [facility] [address] [id number] [address] [place] [phone] Mar, [facility] [address] [id number] [address] [place] [phone] Dec, [facility] [address] [id number] [address] [place] [phone] Dec, [facility] [address] [id number] [address] [place] [phone] Dec, IMMUNIZATIONS No Known Immunizations SOCIAL HISTORY Never Assessed REASON FOR VISIT Lab (walk-in) PLAN OF CARE VITAL SIGNS MEDICATIONS Unknown Medications RESULTS No Results PROCEDURES Procedure Date Ordered Result Body Site LIPID PANEL July 24, 2017 COMPREHEN METABOLIC PANEL July 24, 2017 INSTRUCTIONS MEDICATIONS ADMINISTERED No Known Medications [...]
--- OUTSIDE RECORDS SUMMARY | 2019-06-21 16:35 | XMS REPORT ---
Author Author Nick SEGAL Organization [employer] Address Unknown Phone Unavailable Care Team Providers Care Finisher Polisher Name Role Phone MARINO SEGAL CP Unavailable Allergies No Known Allergies Problems Problem Type Condition Code Onset Dates Condition Statu s Problem Other hammer toe (acquired) 735.4 Active Problem Chronic airway obstruction, not elsewhere classified 4 96 Active Problem Dermatophytosis of nail 110.1 Acti ve Assessment Hammertoe M20.40 Active Assessment Onychomycosis B35.1 Active Problem Coronary atherosclerosis of unspecified type of vessel, [place] or graft 414.00 Active Problem Reflux esophagitis 530.11 Active Problem Diabetes 250.00 Active Problem Unspecified hereditary and idiopathic peripheral neuro jesse 356.9 Active Problem Atherosclerosis of [place] arteries of th e extremities, unspecified 440.20 Active Problem Psychosexual dysfunction with inhibited sexual excitem ent 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
--- OUTSIDE RECORDS SUMMARY | 2019-06-21 16:35 | XMS REPORT ---
Author Author Nick ABDI Organization [facility] Address [address] [place] [address] Care Team Providers Care Director Fundraising Name Role Phone ELVIN ABDI Unavailable PROBLEMS Type Condition ICD9-CM Code RGN21-QX Code Onset Dates Condition S tatus SNOMED Code Problem Hyperlipidemia E78.5 Active 76673 004 Problem DM neuro manif type II E11.49 Active 65357498 Problem Diabetes mellitus E11.9 Active 73 283655 Problem Left leg claudication I73.9 Active 070493253 Problem CAD (coronary artery disease) I25.10 Active 66190053 Problem Hypertension I10 Active 8021734 3 Problem Hypoglycemia E16.2 Active 5450474 03 Problem Arthritis M19.90 Active 8640261 Problem Cigarette nicotine dependence with nicotine-induced di sorder F17.219 Active 60272413 Problem Impaired circulation I99.9 Active 32889069 Problem Hammertoe M20.40 Active 243923077 Problem Reactive depression F32.9 Active 41075983 ALLERGIES No Information ENCOUNTERS Encounter Location Date Diagnosis [facility] [address] [facility] [id number] [address] [place] [address] Jan, [facility] [address] [facility] [id number] [address] [place] [address] Oct, [facility] [address] [facility] [id number] [address] [place] [address] Sep, [facility] [address] [facility] [id number] [address] [place] [address] Sep, [facility] [address] [facility] [id number] [address] [place] [address] Aug, Hypoglycemia E16.2 [facility] [address] [facility] [id number] [address] [place] [address] Aug, [place] [id number] [address] Jul, [place] [address] [address] Jul, Elevated blood sugar R73.9 a nd Neck pain M54.2 [place] [address] [address] Jul, [place] [address] [address] Jul, Onychomycosis B35.1 and DM n euro manif type II E11.49 [place] [address] [address] Jul, [place] [address] [address] June, Hyperlipidemia E78.5 [place] [address] [address] June, Diabetes mellitus E11.9 ; CA D (coronary artery disease) I25.10 ; Arthritis M19.90 and Hyperlipidemia E78.5 [place] [address] [address] June, [place] [address] [address] Apr, Onychomycosis B35.1 ; DM chuck ro manif type II E11.49 and Hammertoe M20.40 [place] [address] [address] Apr, Diabetes mellitus E11.9 and Hypertension I10 [place] [address] [address] Mar, Hypertension I10 and Diabete s mellitus E11.9 [place] [address] [address] Mar, Hypertension I10 and Diabete s mellitus E11.9 [facility] [address] [place] [id number] [address] [place] [address] Jan, Onychomycosis B35.1 and DM n euro manif type II E11.49 [facility] [address] [place] [id number] [address] [place] [address] Dec, [place] [address] [address] Dec, [place] [address] [place] [id number] [place] [address] Dec, Hypertension I10 and Diabete s mellitus E11.9 [place] [address] [address] Oct, Encounter for immunization Z 23 ; Diabetes mellitus E11.9 ; Hypertension I10 and Cigarette nicotine dependence with nicotine-induced disorder F17.219 [place] [address] [address] Oct, Diabetes mellitus E11.9 [place] [address] [address] Oct, Onychomycosis B35.1 ; DM chuck ro manif type II E11.49 and Hammertoe M20.40 [place] [address] [address] Jul, Diabetes mellitus E11.9 [place] [address] [place] [address] Jul, Onychomycosis B35.1 ; Hammer toe M20.40 and DM neuro manif type II E11.49 [place] [address] [place] [id number] [address] [place] [address] May, Diabetes mellitus E11.9 [place] [address] [place] [id number] [address] [place] [address] May, Diabetes mellitus E11.9 [place] [address] [address] Nov, Diabetes mellitus E11.9 ; Hy pertension I10 ; Reactive depression F32.9 and Encounter for immunization Z23 [place] [address] [address] Oct, Ulcer of other part of foot L97.[address] [address] Sep, Onychomycosis B35.1 ; Ulcer of heel, left, with unspecified severity L97.429 and DM neuro manif type II E11.[address] [address] Sep, [address] [address] Sep, Ulcer of heel, left, with un specified severity L97.[address] [address] Aug, Onychomycosis B35.1 ; Ulcer of heel, left, with unspecified severity L97.429 and DM neuro manif type II E11.[address] [address] Jul, Diabetes mellitus E11.9 ; Hy pertension I10 ; Cigarette nicotine dependence with nicotine-induced disorder F17.219 and CAD (coronary artery disease) I25.[address] [address] Jul, Left leg claudication I73.9 ; Right leg claudication I73.9 ; CAD (coronary artery disease) I25.10 ; Hypertension I10 and Hyperlipidemia E78.[address] [address] Jul, Ulcer of heel, left, with un specified severity L97.429 and DM neuro manif type II E11.[address] [place] [address] June, Ulcer of heel, left, with un specified severity L97.429 and Ulcer of other part of foot L97.509 [place] [address] [address] June, Ulcer of heel, left, with un specified severity L97.429 and Ulcer of foot, left, with unspecified severity L97.529 [place] [address] [address] May, [facility] [address] [address] May, [place] [address] [address] Apr, DM neuro manif type II E11.4 9 ; Hypertension I10 and Sleep apnea in adult G47.33 [place] [address] [address] Apr, [place] [address] [address] Apr, Ulcer of foot L97.509 and DM neuro manif type II E11.49 [place] [address] [place] [id number] [place] [address] Apr, Ulcer of other part of foot L97.509 and DM neuro manif type II E11.49 [place] [address] [address] Apr, Onychomycosis B35.1 ; Ingrow n toenail L60.0 ; Impaired circulation I99.9 and DM neuro manif type II E11.49 [place] [address] [place] [id number] [place] [address] Mar, Ulcer of other part of foot L97.509 ; Onychomycosis B35.1 and Diabetes mellitus E11.9 [place] [address] [address] Dec, Encounter for immunization Z 23 ; Hypertension I10 and Diabetes mellitus E11.9 [place] [address] [address] Dec, [place] [address] [address] Dec, CAD (coronary artery disease ) I25.10 ; Hypertension I10 ; Left leg claudication I73.9 and Hyperlipidemia E78.5 [place] [address] [address] Nov, Onychomycosis B35.1 and Vin ertoe M20.40 [place] [address] [address] Sep, Coronary atherosclerosis of unspecified type of vessel, knik or graft 414.00 [place] [address] [address] Sep, Coronary atherosclerosis of unspecified type of vessel, knik or graft 414.00 and Diabetes 250.00 [place] [address] [place] [id number] [address] [place] [address] May, [place] [address] [address] May, [facility] [address] [place] [id number] [address] [place] [address] Apr, [facility] [address] [address] Apr, [facility] [address] [place] [id number] [address] [place] [address] Apr, [facility] [address] [place] [id number] [address] [place] [address] Apr, [facility] [address] [place] [id number] [address] [place] [address] Mar, [facility] [address] [id number] [address] [place] [address], [place] [address] Mar, [facility] [address] [id number] [address] [place] [address], [place] [address] Jan, [facility] [address] [id number] [address] [place] [address], [place] [address] Jan, [facility] [address] [id number] [address] [place] [address], [place] [address] Jan, [facility] [address] [id number] [address] [place] [address], [place] [address] Jan, [facility] [address] [id number] [address] [place] [address], [place] [address] Jan, [facility] [address] [id number] [address] [place] [address], [place] [address] Jan, [facility] [address] [id number] [address] [place] [address], [place] [address] Jan, [facility] [address] [id number] [address] [place] [address], [place] [address] Jan, [facility] [address] [id number] [address] [place] [address], [place] [address] Jan, [facility] [address] [id number] [address] [place] [address], [place] [address] Jan, [facility] [address] [id number] [address] [place] [address], [place] [address] Jan, [facility] [address] [id number] [address] [place] [address], [place] [address] Nov, [facility] [address] [id number] [address] [place] [address], [place] [address] Nov, [facility] [address] [id number] [address] [place] [address], [place] [address] Nov, [facility] [address] [id number] [address] [place] [address], [place] [address] Nov, [facility] [address] [id number] [address] [place] [address], [place] [address] 15 Nov, 2013 [facility] [address] [id number] [address] [place] [address], [place] [address] 15 Nov, 2013 [facility] [place] [address] [id number] [address] [place] [address], [place] [address] 19 Oct, 2013 [facility] [address] [id number] [address] [place] [address], [place] [address] 19 Oct, 2013 [facility] [address] [id number] [address] [place] [address], [place] [address] 19 Oct, 2013 [facility] [place] [facility] [address] [id number] [address] [place] [address], [place] [address] Oct, [facility] [address] [id number] [address] [place] [address], [place] [address] Oct, [facility] [address] [id number] [address] [place] [address], [place] [address] 05 Oct, 2013 [facility] [place] [facility] [address] [id number] [address] [place] [address], [place] [address] Sep, [facility] [place] [facility] [address] [id number] [address] [place] [address], [place] [address] Sep, [facility] [place] [facility] [address] [id number] [address] [place] [address], [place] [address] Sep, [facility] [address] [id number] [address] [place] [address] Sep, [facility] [address] [id number] [address] [place] [address], [place] [address] Sep, [facility] [address] [id number] [address] [place] [address], [place] [address] Sep, [facility] [place] [facility] [address] [id number] [address] [place] [address], [place] [address] Aug, [facility] [place] [facility] [address] [id number] [address] [place] [address] Aug, [facility] [address] [id number] [facility] [place] [address] Aug, [facility] [address] [id number] [address] [place] [address], [place] [address] Aug, [facility] [address] [id number] [address] [place] [address], [place] [address] Aug, [facility] [address] [id number] [address] [place] [address], [place] [address] Aug, [facility] [address] [id number] [address] [place] [address], [place] [address] Jul, [facility] [address] [id number] [address] [place] [address], [place] [address] Jul, [facility] [address] [id number] [address] [place] [address], [place] [address] Jul, [facility] [address] [id number] [address] [place] [address], [place] [address] Jul, [facility] [address] [id number] [address] [place] [address], [place] [address] June, [facility] [address] [id number] [address] [place] [address], [place] [address] June, [facility] [address] [id number] [address] [place] [address], [place] [address] June, [facility] [address] [id number] [address] [place] [address], [place] [address] June, [facility] [address] [id number] [address] [place] [address], [place] [address] May, [facility] [place] [facility] [address] [id number] [address] [place] [address], [place] [address] May, [facility] [address] [id number] [address] [place] [address], [place] [address] May, [facility] [address] [id number] [address] [place] [address], [place] [address] May, [facility] [address] [id number] [address] [place] [address], [place] [address] May, [facility] [place] [facility] [address] [id number] [address] [place] [address], [place] [address] May, [facility] [place] [facility] [address] [id number] [address] [place] [address], [place] [address] Apr, [facility] [place] [facility] [address] [id number] [address] [place] [address], [place] [address] Apr, [facility] [address] [id number] [address] [place] [address], [place] [address] Apr, [facility] [address] [id number] [address] [place] [address], [place] [address] Apr, [facility] [place] [facility] [address] [id number] [address] [place] [address], [place] [address] Apr, [facility] [address] [id number] [address] [place] [address], [place] [address] Apr, [facility] [address] [id number] [address] [place] [address], [place] [address] Apr, [facility] [address] [id number] [address] [place] [address], [place] [address] Jan, [facility] [place] [facility] [address] [id number] [address] [place] [address], [place] [address] Jan, [facility] [place] [facility] [address] [id number] [address] [place] [address], [place] [address] Jan, [facility] [place] [facility] [address] [id number] [address] [place] [address], [place] [address] Jan, [facility] [place] [facility] [address] [id number] [address] [place] [address], [place] [address] Jan, [facility] [place] [facility] [address] [id number] [address] [place] [address], [place] [address] Jan, [facility] [address] [id number] [address] [place] [address], [place] [address] Dec, [facility] [address] [id number] [address] [place] [address], [place] [address] Dec, [facility] [address] [id number] [address] [place] [address], [place] [address] Dec, [facility] [place] [facility] [address] [id number] [address] [place] [address], [place] [address] Dec, [facility] [address] [id number] [address] [place] [address], [place] [address] Dec, [facility] [address] [id number] [address] [place] [address], [place] [address] Dec, [facility] [address] [id number] [address] [place] [address], [place] [address] Nov, [facility] [place] [facility] [address] [id number] [address] [place] [address], [place] [address] Oct, [facility] [address] [id number] [address] [place] [address], [place] [address] Oct, [facility] [place] [facility] [address] [id number] [address] [place] [address], [place] [address] Aug, [facility] [place] [facility] [address] [id number] [address] [place] [address], [place] [address] Aug, [facility] [place] [facility] [address] [id number] [address] [place] [address], [place] [address] Jul, [facility] [place] [facility] [address] [id number] [address] [place] [address], [place] [address] June, [facility] [place] [facility] [address] [id number] [address] [place] [address], [place] [address] Apr, [facility] [place] [facility] [address] [id number] [address] [place] [address], [place] [address] Apr, [facility] [place] [facility] [address] [id number] [address] [place] [address], [place] [address] 08 Apr, 2012 [facility] [address] [id number] [address] [place] [address], [place] [address] 04 Apr, 2012 [facility] [address] [id number] [address] [place] [address], [place] [address] Mar, [facility] [address] [id number] [address] [place] [address], [place] [address] Jan, [facility] [address] [id number] [address] [place] [address], [place] [address] Jan, [facility] [address] [id number] [address] [place] [address], [place] [address] Jan, [facility] [address] [id number] [address] [place] [address], [place] [address] Jan, [facility] [address] [id number] [address] [place] [address], [place] [address] Jan, [facility] [address] [id number] [address] [place] [address], [place] [address] Jan, [facility] [address] [id number] [address] [place] [address], [place] [address] Jan, [facility] [address] [id number] [address] [place] [address], [place] [address] Jan, [facility] [address] [id number] [address] [place] [address], [place] [address] Nov, [facility] [address] [id number] [address] [place] [address], [place] [address] Nov, [facility] [address] [id number] [address] [place] [address], [place] [address] Nov, [facility] [address] [id number] [address] [place] [address], [place] [address] Nov, [facility] [address] [id number] [address] [place] [address] [address] Oct, [facility] [address] [id number] [address] [place] [address] Sep, [facility] [address] [id number] [address] [place] [address] 14 Aug, 2011 [facility] [address] [id number] [address] [place] [address] 14 Aug, 2011 [facility] [address] [id number] [address] [place] [address] 14 Aug, 2011 [facility] [address] [id number] [address] [place] [address] 13 Aug, 2011 [facility] [address] [id number] [address] [place] [address] 13 Aug, 2011 [facility] [address] [id number] [address] [place] [address] Apr, [facility] [address] [id number] [address] [place] [address] 16 Apr, 2011 [facility] [address] [id number] [address] [place] [address] Apr, [facility] [address] [id number] [address] [place] [address] Mar, [facility] [address] [id number] [address] [place] [address] Mar, [facility] [address] [id number] [address] [place] [address] Dec, [facility] [address] [id number] [address] [place] [address] Dec, [facility] [address] [id number] [address] [place] [address] Dec, IMMUNIZATIONS No Known Immunizations SOCIAL HISTORY [...]
--- OUTSIDE RECORDS SUMMARY | 2019-06-21 16:35 | XMS REPORT ---
Author Author Nick SEGAL Organization [facility] Address [address] [place] [address] Care Team Providers Care Nutrient Management Specialist Name Role Phone LUZMAEDD LambertIN Unavailable PROBLEMS Type Condition ICD9-CM Code [id number] Code Onset Dates Condition S tatus SNOMED Code Problem Hypertension I10 Active 7877590 3 Problem Diabetes mellitus E11.9 Active 73 849775 Problem Hyperlipidemia E78.5 Active 20271 004 Problem Left leg claudication I73.9 Active 668198777 Problem CAD (coronary artery disease) I25.10 Active 97178672 Problem Arthritis M19.90 Active 6729098 Problem Hammertoe M20.40 Active 176946406 Problem Impaired circulation I99.9 Active 98953735 Problem DM neuro manif type II E11.49 Active 27694267 Problem Reactive depression F32.9 Active 24800029 Problem Cigarette nicotine dependence with nicotine-induced di sorder F17.219 Active 61974630 ALLERGIES Substance Reaction Event Type Date Status Penicillin V Potassium Unknown Drug Allergy Apr, Activ e Spiders Unknown Non Drug Allergy Apr, Active Artificial sweetner migraines, diarrhea Non Drug Allergy Apr, 18 Active Bee Stings anaphylaxis Non Drug Allergy Apr, Active ENCOUNTERS Encounter Location Date Diagnosis [facility] [address] [facility] [id number] [address] [place] [address] Jan, [facility] [address] [facility] [id number] [address] [place] [address] Oct, [facility] [address] [facility] [id number] [address] [place] [address] Aug, [facility] [address] [facility] [id number] [address] [place] [address] Jul, [facility] [address] [facility] [id number] [address] [place] [address] Jul, Elevated blood sugar R73.9 a nd Neck pain M54.2 [place] [address] [address] Jul, [place] [address] [place] [id number] [place] [address] Jul, Onychomycosis B35.1 and DM n euro manif type II E11.49 [place] [address] [address] Jul, [place] [address] [address] June, Hyperlipidemia E78.5 [place] [address] [address] June, Diabetes mellitus E11.9 ; CA D (coronary artery disease) I25.10 ; Arthritis M19.90 and Hyperlipidemia E78.5 [place] [address] [address] June, [place] [address] [address] Apr, Onychomycosis B35.1 ; DM chuck ro manif type II E11.49 and Hammertoe M20.40 [place] [address] [address] Apr, Diabetes mellitus E11.9 and Hypertension I10 [place] [address] [place] [id number] [address] [place] [address] Mar, Hypertension I10 and Diabete s mellitus E11.9 [place] [address] [place] [id number] [address] [place] [address] Mar, Hypertension I10 and Diabete s mellitus E11.9 [place] [address] [place] [id number] [address] [place] [address] Jan, Onychomycosis B35.1 and DM n euro manif type II E11.49 [place] [id number] [place] [address] Dec, [place] [address] [address] Dec, [place] [address] [address] Dec, Hypertension I10 and Diabete s mellitus E11.9 [place] [address] [address] Oct, Encounter for immunization Z 23 ; Diabetes mellitus E11.9 ; Hypertension I10 and Cigarette nicotine dependence with nicotine-induced disorder F17.219 [place] [address] [address] Oct, Diabetes mellitus E11.9 [place] [address] [address] Oct, Onychomycosis B35.1 ; DM chuck ro manif type II E11.49 and Hammertoe M20.40 [place] [address] [address] Jul, Diabetes mellitus E11.9 [place] [address] [address] Jul, Onychomycosis B35.1 ; Hammer toe M20.40 and DM neuro manif type II E11.49 [place] [address] [place] [address] May, Diabetes mellitus E11.9 [place] [address] [address] May, Diabetes mellitus E11.9 [place] [address] [address] Nov, Diabetes mellitus E11.9 ; Hy pertension I10 ; Reactive depression F32.9 and Encounter for immunization Z23 [place] [address] [place] [id number] [address] [place] [address] Oct, Ulcer of other part of foot L97.509 [place] [id number] [address] [place] [address] Sep, Onychomycosis B35.1 ; Ulcer of heel, left, with unspecified severity L97.429 and DM neuro manif type II E11.49 [place] [id number] [address] [place] [address] Sep, [address] [id number] [address] [place] [address] Sep, Ulcer of heel, left, with un specified severity L97.429 [place] [id number] [place] [address] Aug, Onychomycosis B35.1 ; Ulcer of heel, left, with unspecified severity L97.429 and DM neuro manif type II E11.49 [address] [place] [address] Jul, Diabetes mellitus E11.9 ; Hy pertension I10 ; Cigarette nicotine dependence with nicotine-induced disorder F17.219 and CAD (coronary artery disease) I25.10 [address] [place] [address] Jul, Left leg claudication I73.9 ; Right leg claudication I73.9 ; CAD (coronary artery disease) I25.10 ; Hypertension I10 and Hyperlipidemia E78.5 [place] [id number] [address] [place] [address] Jul, Ulcer of heel, left, with un specified severity L97.429 and DM neuro manif type II E11.49 [place] [id number] [address] [place] [address] June, Ulcer of heel, left, with un specified severity L97.429 and Ulcer of other part of foot L97.[address] [place] [address] June, Ulcer of heel, left, with un specified severity L97.429 and Ulcer of foot, left, with unspecified severity L97.529 [place] [address] [address] May, [place] [address] [address] May, [place] [address] [address] Apr, DM neuro manif type II E11.4 9 ; Hypertension I10 and Sleep apnea in adult G47.33 [place] [address] [address] Apr, [place] [address] [address] Apr, Ulcer of foot L97.509 and DM neuro manif type II E11.49 [place] [address] [address] Apr, Ulcer of other part of foot L97.509 and DM neuro manif type II E11.49 [place] [address] [address] Apr, Onychomycosis B35.1 ; Ingrow n toenail L60.0 ; Impaired circulation I99.9 and DM neuro manif type II E11.49 [place] [address] [address] Mar, Ulcer of other part of foot L97.509 ; Onychomycosis B35.1 and Diabetes mellitus E11.[address] [address] Dec, Encounter for immunization Z 23 ; Hypertension I10 and Diabetes mellitus E11.[address] [address] Dec, [facility] [address] [facility] [id number] [address] [place] [address] Dec, CAD (coronary artery disease ) I25.10 ; Hypertension I10 ; Left leg claudication I73.9 and Hyperlipidemia E78.5 [facility] [address] [facility] [id number] [address] [place] [address] Nov, Onychomycosis B35.1 and Vin ertoe M20.40 [facility] [address] [id number] [address] [place] [address] Sep, Coronary atherosclerosis of unspecified type of vessel, samish or graft 414.00 [facility] [address] [facility] [id number] [place] [address] Sep, Coronary atherosclerosis of unspecified type of vessel, samish or graft 414.00 and Diabetes 250.00 [facility] [address] [facility] [id number] [address] [place] [address] May, [facility] [address] [facility] [id number] [address] [place] [address] May, [facility] [address] [facility] [id number] [address] [place] [address] Apr, [facility] [address] [facility] [id number] [address] [place] [address] Apr, [facility] [address] [facility] [id number] [address] [place] [address] Apr, [facility] [address] [facility] [id number] [address] [place] [address] Apr, [facility] [address] [facility] [id number] [address] [place] [address] Mar, [facility] [address] [facility] [id number] [address] [place] [address] Mar, [facility] [address] [facility] [id number] [address] [place] [address] Jan, [facility] [place] [facility] [address] [id number] [address] [place] [address], [place] [address] Jan, [facility] [address] [id number] [address] [place] [address], [place] [address] Jan, [facility] [address] [id number] [address] [place] [address], [place] [address] Jan, [facility] [address] [id number] [address] [place] [address], [place] [address] Jan, [facility] [address] [id number] [address] [place] [address], [place] [address] Jan, [facility] [address] [id number] [address] [place] [address], [place] [address] Jan, [facility] [address] [id number] [address] [place] [address], [place] [address] Jan, [facility] [address] [id number] [address] [place] [address], [place] [address] Jan, [facility] [address] [id number] [address] [place] [address], [place] [address] Jan, [facility] [address] [id number] [address] [place] [address], [place] [address] Jan, [facility] [address] [id number] [address] [place] [address], [place] [address] Nov, [facility] [address] [id number] [address] [place] [address], [place] [address] Nov, [facility] [address] [id number] [address] [place] [address], [place] [address] Nov, [facility] [place] [facility] [address] [id number] [address] [place] [address], [place] [address] Nov, [facility] [address] [id number] [address] [place] [address], [place] [address] Nov, [facility] [address] [id number] [address] [place] [address], [place] [address] Nov, [facility] [address] [id number] [address] [place] [address], [place] [address] Oct, [facility] [place] [facility] [address] [id number] [address] [place] [address], [place] [address] Oct, [facility] [address] [id number] [address] [place] [address], [place] [address] Oct, [facility] [place] [facility] [address] [id number] [address] [place] [address], [place] [address] Oct, [facility] [address] [id number] [address] [place] [address], [place] [address] Oct, [facility] [place] [facility] [address] [id number] [address] [place] [address], [place] [address] Oct, [facility] [address] [id number] [address] [place] [address], [place] [address] Sep, [facility] [place] [facility] [address] [id number] [address] [place] [address], [place] [address] Sep, [facility] [address] [id number] [address] [place] [address], [place] [address] Sep, [facility] [place] [facility] [address] [id number] [address] [place] [address], [place] [address] Sep, [facility] [place] [facility] [address] [id number] [address] [place] [address], [place] [address] Sep, [facility] [place] [facility] [address] [id number] [address] [place] [address], [place] [address] Sep, [facility] [place] [facility] [address] [id number] [address] [place] [address], [place] [address] Aug, [facility] [place] [facility] [address] [id number] [address] [place] [address], [place] [address] Aug, [facility] [place] [facility] [address] [id number] [address] [place] [address], [place] [address] Aug, [facility] [place] [facility] [address] [id number] [facility] [address] Aug, [facility] [address] [id number] [facility] [place] [address] Aug, [facility] [address] [id number] [address] [place] [address], [place] [address] Aug, [facility] [address] [id number] [address] [place] [address], [place] [address] Jul, [facility] [address] [id number] [address] [place] [address], [place] [address] Jul, [facility] [address] [id number] [address] [place] [address], [place] [address] Jul, [facility] [address] [id number] [address] [place] [address], [place] [address] Jul, [facility] [address] [id number] [address] [place] [address], [place] [address] June, [facility] [address] [id number] [address] [place] [address], [place] [address] June, [facility] [address] [id number] [address] [place] [address], [place] [address] June, [facility] [address] [id number] [address] [place] [address], [place] [address] June, [facility] [address] [id number] [address] [place] [address], [place] [address] May, [facility] [address] [id number] [address] [place] [address], [place] [address] May, [facility] [address] [id number] [address] [place] [address], [place] [address] May, [facility] [address] [id number] [address] [place] [address], [place] [address] May, [facility] [address] [id number] [address] [place] [address], [place] [address] May, [facility] [address] [id number] [address] [place] [address], [place] [address] May, [facility] [address] [id number] [address] [place] [address], [place] [address] Apr, [facility] [address] [id number] [address] [place] [address], [place] [address] Apr, [facility] [address] [id number] [address] [place] [address], [place] [address] Apr, [facility] [address] [id number] [address] [place] [address], [place] [address] Apr, [facility] [address] [id number] [address] [place] [address], [place] [address] Apr, [facility] [address] [id number] [address] [place] [address], [place] [address] Apr, [facility] [address] [id number] [address] [place] [address], [place] [address] Apr, [facility] [address] [id number] [address] [place] [address], [place] [address] Jan, [facility] [address] [id number] [address] [place] [address], [place] [address] Jan, [facility] [address] [id number] [address] [place] [address], [place] [address] Jan, [facility] [place] [facility] [address] [id number] [address] [place] [address], [place] [address] Jan, [facility] [address] [id number] [address] [place] [address], [place] [address] Jan, [facility] [address] [id number] [address] [place] [address], [place] [address] Jan, [facility] [place] [facility] [address] [id number] [address] [place] [address], [place] [address] Dec, [facility] [address] [id number] [address] [place] [address], [place] [address] 15 Dec, 2012 [facility] [address] [id number] [address] [place] [address], [place] [address] Dec, [facility] [address] [id number] [address] [place] [address], [place] [address] Dec, [facility] [address] [id number] [address] [place] [address], [place] [address] Dec, [facility] [address] [id number] [address] [place] [address], [place] [address] Dec, [facility] [address] [id number] [address] [place] [address], [place] [address] Nov, [facility] [address] [id number] [address] [place] [address], [place] [address] Oct, [facility] [address] [id number] [address] [place] [address], [place] [address] Oct, [facility] [address] [id number] [address] [place] [address], [place] [address] Aug, [facility] [address] [id number] [address] [place] [address], [place] [address] Aug, [facility] [address] [id number] [address] [place] [address], [place] [address] Jul, [facility] [address] [id number] [address] [place] [address], [place] [address] June, [facility] [address] [id number] [address] [place] [address], [place] [address] Apr, [facility] [address] [id number] [address] [place] [address], [place] [address] Apr, [facility] [address] [id number] [address] [place] [address], [place] [address] Apr, [facility] [address] [id number] [address] [place] [address], [place] [address] Apr, [facility] [address] [id number] [address] [place] [address], [place] [address] Mar, [facility] [address] [id number] [address] [place] [address], [place] [address] Jan, [facility] [address] [id number] [address] [place] [address], [place] [address] Jan, [facility] [address] [id number] [address] [place] [address], [place] [address] Jan, [facility] [address] [id number] [address] [place] [address], [place] [address] Jan, [facility] [address] [id number] [address] [place] [address], [place] [address] Jan, [facility] [address] [id number] [address] [place] [address], [place] [address] Jan, [facility] [address] [id number] [address] [place] [address], [place] [address] Jan, [facility] [address] [id number] [address] [place] [address], [place] [address] Jan, [facility] [address] [id number] [address] [place] [address], [place] [address] Nov, [facility] [address] [id number] [address] [place] [address], [place] [address] Nov, [facility] [address] [id number] [address] [place] [address], [place] [address] Nov, [facility] [address] [id number] [address] [place] [address], [place] [address] Nov, [facility] [address] [id number] [address] [place] [address], [place] [address] 17 Nov, 2011 [facility] [place] [facility] [address] [id number] [address] [place] [address], [place] [address] Sep, [facility] [address] [id number] [address] [place] [address] 14 Aug, 2011 [facility] [address] [id number] [address] [place] [address] 14 Aug, 2011 [facility] [address] [id number] [address] [place] [address] 14 Aug, 2011 [facility] [address] [id number] [address] [place] [address] 13 Aug, 2011 [facility] [address] [id number] [address] [place] [address] 13 Aug, 2011 [facility] [address] [id number] [address] [place] [address] Apr, [facility] [address] [id number] [address] [place] [id number] 16 Apr, 2011 [facility] [address] [id number] [address] [place] [id number] Apr, [facility] [address] [id number] [address] [place] [id number] Mar, [facility] [address] [id number] [address] [place] [id number] Mar, [facility] [address] [id number] [address] [place] [phone] Dec, [facility] [address] [id number] [address] [place] [phone] Dec, [facility] [address] [id number] [address] [place] [phone] Dec, IMMUNIZATIONS No Known Immunizations SOCIAL HISTORY Never Assessed REASON FOR VISIT 3 mo f/u. Consult Dr. Segal;Vladislav RT(R) PLAN OF CARE Activity Details Follow Up 3 Months Reason: VITAL SIGNS MEDICATIONS Unknown Medications RESULTS No [...]
--- OUTSIDE RECORDS SUMMARY | 2019-06-21 16:35 | XMS REPORT ---
Author Author Nick ABDI Organization [facility] Address [address] [place] [address] Care Team Providers Care Assessment Nurse Practitioner Name Role Phone ELVIN ABDI Unavailable PROBLEMS Type Condition ICD9-CM Code [id number] Code Onset Dates Condition S tatus SNOMED Code Problem CAD (coronary artery disease) I25.10 Active 03426585 Problem Hyperlipidemia E78.5 Active 79141 004 Problem Hypertension I10 Active 1501708 3 Problem Left leg claudication I73.9 Active 432983411 Problem Hammertoe M20.40 Active 188322730 Problem Reactive depression F32.9 Active 56184143 Problem DM neuro manif type II E11.49 Active 50829876 Problem Diabetes mellitus E11.9 Active 73 889329 Problem Cigarette nicotine dependence with nicotine-induced di sorder F17.219 Active 94752600 Problem Impaired circulation I99.9 Active 56396527 ALLERGIES Substance Reaction Event Type Date Status Penicillin V Potassium Unknown Drug Allergy Oct, Activ e Spiders Unknown Non Drug Allergy Oct, Active Artificial sweetner migraines, diarrhea Non Drug Allergy Oct, 17 Active Bee Stings anaphylaxis Non Drug Allergy Oct, Active ENCOUNTERS Encounter Location Date Diagnosis [facility] [address] [place] [id number] [address] [place] [address] Jul, [place] [address] [place] [id number] [address] [place] [address] Apr, Onychomycosis B35.1 ; DM chuck ro manif type II E11.49 and Hammertoe M20.40 [facility] [address] [facility] [id number] [address] [place] [address] Apr, Diabetes mellitus E11.9 and Hypertension I10 [place] [address] [facility] [id number] [address] [place] [address] Mar, Hypertension I10 and Diabete s mellitus E11.9 [facility] [address] [place] [id number] [address] [place] [address] Mar, Hypertension I10 and Diabete s mellitus E11.9 [place] [address] [facility] [id number] [address] [place] [address] Jan, Onychomycosis B35.1 and DM n euro manif type II E11.49 [place] [address] [place] [id number] [address] [place] [address] Dec, [place] [address] [place] [id number] [place] [address] Dec, [place] [address] [place] [id number] [place] [address] Dec, Hypertension I10 and Diabete s mellitus E11.9 [place] [address] [address] Oct, Encounter for immunization Z 23 ; Diabetes mellitus E11.9 ; Hypertension I10 and Cigarette nicotine dependence with nicotine-induced disorder F17.219 [place] [address] [address] Oct, Diabetes mellitus E11.9 [place] [address] [place] [id number] [place] [address] Oct, Onychomycosis B35.1 ; DM chuck ro manif type II E11.49 and Hammertoe M20.40 [place] [address] [place] [id number] [address] [place] [address] Jul, Diabetes mellitus E11.9 [place] [address] [place] [id number] [place] [address] Jul, Onychomycosis B35.1 ; Hammer toe M20.40 and DM neuro manif type II E11.49 [place] [address] [place] [id number] [address] [place] [address] May, Diabetes mellitus E11.9 [place] [address] [place] [id number] [address] [place] [address] May, Diabetes mellitus E11.9 [place] [address] [address] Nov, Diabetes mellitus E11.9 ; Hy pertension I10 ; Reactive depression F32.9 and Encounter for immunization Z23 [place] [address] [address] Oct, Ulcer of other part of foot L97.509 [place] [address] [address] Sep, Onychomycosis B35.1 ; Ulcer of heel, left, with unspecified severity L97.429 and DM neuro manif type II E11.49 [place] [address] [address] Sep, [place] [address] [address] Sep, Ulcer of heel, left, with un specified severity L97.429 [place] [address] [address] Aug, Onychomycosis B35.1 ; Ulcer of heel, left, with unspecified severity L97.429 and DM neuro manif type II E11.49 [place] [id number] [place] [address] Jul, Diabetes mellitus E11.9 ; Hy pertension I10 ; Cigarette nicotine dependence with nicotine-induced disorder F17.219 and CAD (coronary artery disease) I25.[address] [address] Jul, Left leg claudication I73.9 ; Right leg claudication I73.9 ; CAD (coronary artery disease) I25.10 ; Hypertension I10 and Hyperlipidemia E78.[address] [address] Jul, Ulcer of heel, left, with un specified severity L97.429 and DM neuro manif type II E11.49 [facility] [address] [id number] [address] [place] [address] June, Ulcer of heel, left, with un specified severity L97.429 and Ulcer of other part of foot L97.509 [facility] [address] [id number] [address] [place] [address] June, Ulcer of heel, left, with un specified severity L97.429 and Ulcer of foot, left, with unspecified severity L97.529 [facility] [address] [id number] [address] [place] [address] May, [facility] [address] [id number] [address] [place] [address] May, [facility] [address] [facility] [id number] [address] [place] [address] Apr, DM neuro manif type II E11.4 9 ; Hypertension I10 and Sleep apnea in adult G47.33 [facility] [address] [facility] [id number] [address] [place] [address] Apr, [facility] [address] [id number] [address] [place] [address] Apr, Ulcer of foot L97.509 and DM neuro manif type II E11.49 [facility] [address] [id number] [address] [place] [address] Apr, Ulcer of other part of foot L97.509 and DM neuro manif type II E11.49 [facility] [address] [id number] [address] [place] [address] Apr, Onychomycosis B35.1 ; Ingrow n toenail L60.0 ; Impaired circulation I99.9 and DM neuro manif type II E11.49 [facility] [address] [facility] [id number] [address] [place] [address] Mar, Ulcer of other part of foot L97.509 ; Onychomycosis B35.1 and Diabetes mellitus E11.9 [place] [address] [address] Dec, Encounter for immunization Z 23 ; Hypertension I10 and Diabetes mellitus E11.9 [place] [address] [address] Dec, [place] [address] [address] Dec, CAD (coronary artery disease ) I25.10 ; Hypertension I10 ; Left leg claudication I73.9 and Hyperlipidemia E78.[address] [address] Nov, Onychomycosis B35.1 and Vin ertoe M20.[address] [address] Sep, Coronary atherosclerosis of unspecified type of vessel, ute mountain or graft 414.00 [place] [address] [address] Sep, Coronary atherosclerosis of unspecified type of vessel, ute mountain or graft 414.00 and Diabetes 250.00 [place] [address] [address] May, [facility] [address] [place] [id number] [address] [place] [address] May, [facility] [address] [place] [id number] [address] [place] [address] Apr, [facility] [address] [address] Apr, [facility] [address] [place] [id number] [address] [place] [address] Apr, [facility] [address] [address] Apr, [facility] [address] [id number] [address] [place] [address], [place] [address] Mar, [facility] [address] [id number] [address] [place] [address], [place] [address] Mar, [facility] [address] [id number] [address] [place] [address], [place] [address] Jan, [facility] [address] [id number] [address] [place] [address], [place] [address] Jan, [facility] [address] [id number] [address] [place] [address], [place] [address] Jan, [facility] [address] [id number] [address] [place] [address], [place] [address] Jan, [facility] [address] [id number] [address] [place] [address], [place] [address] Jan, [facility] [address] [id number] [address] [place] [address], [place] [address] Jan, [facility] [address] [id number] [address] [place] [address], [place] [address] Jan, [facility] [address] [id number] [address] [place] [address], [place] [address] Jan, [facility] [address] [id number] [address] [place] [address], [place] [address] Jan, [facility] [address] [id number] [address] [place] [address], [place] [address] Jan, [facility] [address] [id number] [address] [place] [address], [place] [address] Jan, [facility] [address] [id number] [address] [place] [address], [place] [address] Nov, [facility] [address] [id number] [address] [place] [address], [place] [address] Nov, [facility] [address] [id number] [address] [place] [address], [place] [address] 22 Nov, 2013 [facility] [address] [id number] [address] [place] [address], [place] [address] 22 Nov, 2013 [facility] [address] [id number] [address] [place] [address], [place] [address] 15 Nov, 2013 [facility] [address] [id number] [address] [place] [address], [place] [address] 15 Nov, 2013 [facility] [address] [id number] [address] [place] [address], [place] [address] 19 Oct, 2013 [facility] [address] [id number] [address] [place] [address], [place] [address] 19 Oct, 2013 [facility] [address] [id number] [address] [place] [address], [place] [address] 19 Oct, 2013 [facility] [address] [id number] [address] [place] [address], [place] [address] 19 Oct, 2013 [facility] [address] [id number] [address] [place] [address], [place] [address] 05 Oct, 2013 [facility] [address] [id number] [address] [place] [address], [place] [address] 05 Oct, 2013 [facility] [address] [id number] [address] [place] [address], [place] [address] Sep, [facility] [address] [id number] [address] [place] [address], [place] [address] Sep, [facility] [address] [id number] [address] [place] [address], [place] [address] 15 Sep, 2013 [facility] [address] [id number] [address] [place] [address], [place] [address] Sep, [facility] [address] [id number] [address] [place] [address], [place] [address] Sep, [facility] [address] [id number] [address] [place] [address], [place] [address] Sep, [facility] [address] [id number] [address] [place] [address], [place] [address] Aug, [facility] [address] [id number] [address] [place] [address], [place] [address] Aug, [facility] [address] [id number] [address] [place] [address], [place] [address] Aug, [facility] [address] [id number] [address] [place] [address], [place] [address] Aug, [facility] [address] [id number] [address] [place] [address], [place] [address] Aug, [facility] [address] [id number] [address] [place] [address], [place] [address] Aug, [facility] [address] [id number] [address] [place] [address], [place] [address] Jul, [facility] [address] [id number] [address] [place] [address], [place] [address] Jul, [facility] [address] [id number] [address] [place] [address], [place] [address] Jul, [facility] [address] [id number] [address] [place] [address], [place] [address] Jul, [facility] [address] [id number] [address] [place] [address], [place] [address] June, [facility] [address] [id number] [address] [place] [address], [place] [address] June, [facility] [address] [id number] [address] [place] [address], [place] [address] June, [facility] [address] [id number] [address] [place] [address], [place] [address] June, [facility] [address] [id number] [address] [place] [address], [place] [address] May, [facility] [address] [id number] [address] [place] [address], [place] [address] May, [facility] [address] [id number] [address] [place] [address], [place] [address] May, [facility] [address] [id number] [address] [place] [address], [place] [address] May, [facility] [address] [id number] [address] [place] [address], [place] [address] May, [facility] [address] [id number] [address] [place] [address], [place] [address] May, [facility] [address] [id number] [address] [place] [address], [place] [address] Apr, [facility] [address] [id number] [address] [place] [address], [place] [address] Apr, [facility] [address] [id number] [address] [place] [address], [place] [address] Apr, [facility] [address] [id number] [address] [place] [address], [place] [address] Apr, [facility] [address] [id number] [address] [place] [address], [place] [address] Apr, [facility] [address] [id number] [address] [place] [address], [place] [address] Apr, [facility] [address] [id number] [address] [place] [address], [place] [address] Apr, [facility] [address] [id number] [address] [place] [address], [place] [address] Jan, [facility] [address] [id number] [address] [place] [address], [place] [address] Jan, [facility] [address] [id number] [address] [place] [address], [place] [address] Jan, [facility] [address] [id number] [address] [place] [address], [place] [address] Jan, [facility] [address] [id number] [address] [place] [address], [place] [address] Jan, [facility] [address] [id number] [address] [place] [address], [place] [address] Jan, [facility] [address] [id number] [address] [place] [address], [place] [address] Dec, [facility] [address] [id number] [address] [place] [address], [place] [address] Dec, [facility] [address] [id number] [address] [place] [address], [place] [address] Dec, [facility] [address] [id number] [address] [place] [address], [place] [address] Dec, [facility] [address] [id number] [address] [place] [address], [place] [address] Dec, [facility] [address] [id number] [address] [place] [address], [place] [address] Dec, [facility] [address] [id number] [address] [place] [address], [place] [address] Nov, [facility] [address] [id number] [address] [place] [address], [place] [address] Oct, [facility] [address] [id number] [address] [place] [address], [place] [address] Oct, [facility] [address] [id number] [address] [place] [address], [place] [address] Aug, [facility] [address] [id number] [address] [place] [address], [place] [address] Aug, [facility] [address] [id number] [address] [place] [address], [place] [address] Jul, [facility] [address] [id number] [address] [place] [address], [place] [address] June, [facility] [address] [id number] [address] [place] [address], [place] [address] Apr, [facility] [address] [id number] [address] [place] [address], [place] [address] Apr, [facility] [address] [id number] [address] [place] [address], [place] [address] Apr, [facility] [address] [id number] [address] [place] [address], [place] [address] Apr, [facility] [address] [id number] [address] [place] [address], [place] [address] Mar, [facility] [address] [id number] [address] [place] [address], [place] [address] Jan, [facility] [address] [id number] [address] [place] [address], [place] [address] Jan, [facility] [address] [id number] [address] [place] [address], [place] [address] Jan, [facility] [address] [id number] [address] [place] [address], [place] [address] Jan, [facility] [address] [id number] [address] [place] [address], [place] [address] Jan, [facility] [address] [id number] [address] [place] [address], [place] [address] Jan, [facility] [address] [id number] [address] [place] [address], [place] [address] Jan, [facility] [address] [id number] [address] [place] [address], [place] [address] Jan, [facility] [address] [id number] [address] [place] [address], [place] [address] Nov, [facility] [address] [id number] [address] [place] [address], [place] [address] Nov, [facility] [address] [id number] [address] [place] [address], [place] [address] Nov, [facility] [address] [id number] [address] [place] [address], [place] [address] 16 Dec, 2011 [facility] [address] [id number] [address] [place] [address], [place] [address] 17 Nov, 2011 [facility] [address] [id number] [address] [place] [address], [place] [address] 24 Oct, 2011 [facility] [address] [id number] [address] [place] [address], [place] [address] 14 Aug, 2011 [facility] [address] [id number] [address] [place] [address], [place] [address] 14 Aug, 2011 [facility] [address] [id number] [address] [place] [address], [place] [address] 14 Aug, 2011 [facility] [address] [id number] [address] [place] [address], [place] [address] 13 Aug, 2011 [facility] [address] [id number] [address] [place] [address], [place] [address] 13 Aug, 2011 [facility] [address] [id number] [address] [place] [address], [place] [address] 20 May, 2011 [facility] [address] [id number] [address] [place] [address], [place] [address] 16 Apr, 2011 [facility] [address] [id number] [address] [place] [address], [place] [address] 16 Apr, 2011 [facility] [address] [id number] [address] [place] [address], [place] [address] Mar, [facility] [address] [id number] [address] [place] [address], [place] [address] Mar, [facility] [address] [id number] [address] [place] [address], [place] [address] Dec, [facility] [address] [id number] [address] [place] [address], [place] [address] Dec, [facility] [address] [id number] [address] [place] [address], [place] [address] Dec, IMMUNIZATIONS Vaccine Route Administration Date Status FLUARIX QUAD (3 AND UP) 2016 IM Intramuscular Nov 24, 2016 Ad ministered SOCIAL HISTORY Never Assessed REASON FOR VISIT Diabetes f/u--H Jimbo MCDONNELL PLAN OF CARE Activity Details Follow Up 3 Months Reason: VITAL SIGNS Height 75 in 2016-11-24 Weight 221.1 lbs 2016-11-24 Temperature 97.5 degrees Fahrenheit 2016-11-24 Heart Rate 60 bpm 2016-11-24 Respiratory Rate 18 2016-11-24 BMI 27.63 kg/m2 2016-11-24 Blood pressure systolic 120 mmHg 2016-11-24 Blood pressure diastolic 78 mmHg 2016-11-24 MEDICATIONS Medication Instructions Dosage Frequency Start Date End Date Duration S tatus Gabapentin 300 MG Orally Three times a day 1 capsule 8h Active Metoprolol Succinate ER 25 MG Orally Once a day 1 tablet 24h Active Multi Vitamin Daily - Orally Once a day 1 tablet 24h Active Naproxen 500 mg TAKE ONE TABLET BY MOUTH TWICE DAILY WITH FOOD Active MetFORMIN HCl ER 500 mg Orally twice a day 500mg QAM/1000mg QPMl 12h 30 Active Aspir-Low 81 MG Orally Once a day 1 tablet 24h Active Lisinopril 10 mg TAKE ONE TABLET BY MOUTH ONCE DAILY IN THE MORN ING Active Simvastatin 20 mg Orally Once a day 1 tablet in the evening 24h Active Zoloft 50 mg Orally Once a day 1 tablet 24h 30 Active Plavix 75 MG Orally Once a day 1 tablet 24h Active Metoprolol Tartrate 25 MG Orally Twice a day 1 tablet with food 12h 09 Jul, 2016 Active RESULTS Name Result Date Reference Range A1C (IN HOUSE) 2016-11-24 A1C IN HOUSE 6.3 4.3 - 5.6 % Previous A1c 6.3 Lot [id number] Exp date 06/2018 MICROALBUMIN, URINE (IN HOUSE) 2016-11-24 MICROALBUMIN normal Lot # [id number] Exp date 09/29/2017 Clarity clear Color yellow ALB 30 CRE 300 A:C (IN HOUSE) <30 Control Control Lot # Exp date PROCEDURES Procedure Date Ordered Result Body Site GLYCATED HEMOGLOBIN TEST Nov 24, 2016 MICROALBUMIN, SEMIQUANT Nov 24, 2016 SINGLE IMMUNIZATION ADMIN Nov 24, 2016 FLUARIX QUAD (3 & UP)-Nov 24, 2016 INSTRUCTIONS MEDICATIONS ADMINISTERED No Known Medications MEDICAL [...]
--- OUTSIDE RECORDS SUMMARY | 2019-06-21 16:35 | XMS REPORT ---
Author Author Nick ABDI Organization [employer] Address Unknown Phone Unavailable Care Team Providers Care Coat Operator Name Role Phone ELVIN ABDI CP Unavailable Allergies No Known Allergies Problems Problem Type Condition Code Onset Dates Condition Statu s Problem Reflux esophagitis 530.11 Active Problem Chronic airway obstruction, not elsewhere classified 4 96 Active Problem DM neuro manif type II E11.49 Activ e Problem Diabetes mellitus E11.9 Active Problem Impaired circulation I99.9 Active Problem Left leg claudication I73.9 Active Problem Hyperlipidemia E78.5 Active Problem CAD (coronary artery disease) I25.10 Active Problem Hypertension I10 Active Medications Medication Code System Code Instructions Start Date End Date Status Dosage Naproxen [facility] [address]-87 500 MG Orally 1 tablet Nexium [facility] [address]-85 40 mg Orally Once a day ONE CAPSULE Lisinopril [facility] [address]-63 10 mg Orally Once a day 1 tablet Metformin HCl [facility] [address]-52 500 MG Orally Twice a day 1 tablet with meals Metoprolol Tartrate [facility] [address]-28 25 MG Orally Twice a day 1 tablet with food Simvastatin [facility] [address]-06 20 mg Orally Once a day 1 tablet Results No Known Results Summary Purpose [employer] Submission
--- OUTSIDE RECORDS SUMMARY | 2019-06-21 16:35 | XMS REPORT ---
Author Author Nick ABDI Organization [facility] Address [address] [place] [address] Care Team Providers Care Commissioned Fire Officer Name Role Phone ELVIN ABDI Unavailable PROBLEMS Type Condition ICD9-CM Code EBI33-LC Code Onset Dates Condition S tatus SNOMED Code Problem Hyperlipidemia E78.5 Active 49034 004 Problem DM neuro manif type II E11.49 Active 93009790 Problem Diabetes mellitus E11.9 Active 73 163518 Problem Left leg claudication I73.9 Active 377231550 Problem CAD (coronary artery disease) I25.10 Active 51028273 Problem Hypertension I10 Active 9135111 3 Problem Hypoglycemia E16.2 Active 7358183 03 Problem Arthritis M19.90 Active 6186100 Problem Cigarette nicotine dependence with nicotine-induced di sorder F17.219 Active 45995198 Problem Impaired circulation I99.9 Active 03239038 Problem Hammertoe M20.40 Active 124374246 Problem Reactive depression F32.9 Active 74423277 ALLERGIES Substance Reaction Event Type Date Status Penicillin V Potassium Unknown Drug Allergy June, Activ e Spiders Unknown Non Drug Allergy June, Active Artificial sweetner migraines, diarrhea Non Drug Allergy June, 18 Active Bee Stings anaphylaxis Non Drug Allergy June, Active ENCOUNTERS Encounter Location Date Diagnosis [facility] [address] [facility] [id number] [address] [place] [address] Jan, [facility] [address] [id number] [address] [place] [address] Oct, [facility] [address] [id number] [address] [place] [address] Sep, [facility] [address] [id number] [address] [place] [address] Sep, [facility] [address] [place] [id number] [address] [place] [address] Aug, Hypoglycemia E16.2 [facility] [address] [place] [id number] [place] [address] Aug, [facility] [address] [id number] [address] [place] [address] Jul, [facility] [address] [address] Jul, Elevated blood sugar R73.9 a nd Neck pain M54.2 [place] [address] [place] [id number] [place] [address] Jul, [place] [address] [place] [id number] [place] [address] Jul, Onychomycosis B35.1 and DM n euro manif type II E11.49 [place] [address] [address] Jul, [facility] [address] [address] June, Hyperlipidemia E78.5 [place] [address] [address] June, Diabetes mellitus E11.9 ; CA D (coronary artery disease) I25.10 ; Arthritis M19.90 and Hyperlipidemia E78.5 [place] [address] [address] June, [place] [address] [address] Apr, Onychomycosis B35.1 ; DM chuck ro manif type II E11.49 and Hammertoe M20.40 [facility] [address] [facility] [id number] [address] [place] [address] Apr, Diabetes mellitus E11.9 and Hypertension I10 [facility] [address] [address] Mar, Hypertension I10 and Diabete s mellitus E11.9 [place] [address] [place] [id number] [address] [place] [address] Mar, Hypertension I10 and Diabete s mellitus E11.9 [place] [address] [place] [id number] [address] [place] [address] Jan, Onychomycosis B35.1 and DM n euro manif type II E11.49 [place] [address] [place] [id number] [address] [place] [address] Dec, [place] [address] [address] Dec, [place] [address] [place] [id number] [place] [address] Dec, Hypertension I10 and Diabete s mellitus E11.9 [place] [address] [address] Oct, Encounter for immunization Z 23 ; Diabetes mellitus E11.9 ; Hypertension I10 and Cigarette nicotine dependence with nicotine-induced disorder F17.219 [place] [address] [address] Oct, Diabetes mellitus E11.9 [place] [address] [place] [id number] [place] [address] Oct, Onychomycosis B35.1 ; DM chuck ro manif type II E11.49 and Hammertoe M20.40 [place] [address] [facility] [id number] [address] [place] [address] Jul, Diabetes mellitus E11.9 [place] [address] [place] [id number] [address] [place] [address] Jul, Onychomycosis B35.1 ; Hammer toe M20.40 and DM neuro manif type II E11.49 [place] [address] [place] [id number] [address] [place] [address] May, Diabetes mellitus E11.9 [place] [address] [address] May, Diabetes mellitus E11.9 [place] [address] [address] Nov, Diabetes mellitus E11.9 ; Hy pertension I10 ; Reactive depression F32.9 and Encounter for immunization Z23 [place] [address] [address] Oct, Ulcer of other part of foot L97.509 [place] [address] [address] Sep, Onychomycosis B35.1 ; Ulcer of heel, left, with unspecified severity L97.429 and DM neuro manif type II E11.[address] [address] Sep, [place] [address] [address] Sep, Ulcer of heel, left, with un specified severity L97.[address] [address] Aug, Onychomycosis B35.1 ; Ulcer of heel, left, with unspecified severity L97.429 and DM neuro manif type II E11.49 [place] [address] [address] Jul, Diabetes mellitus E11.9 ; Hy pertension I10 ; Cigarette nicotine dependence with nicotine-induced disorder F17.219 and CAD (coronary artery disease) I25.[address] [address] Jul, Left leg claudication I73.9 ; Right leg claudication I73.9 ; CAD (coronary artery disease) I25.10 ; Hypertension I10 and Hyperlipidemia E78.[address] [place] [address] Jul, Ulcer of heel, left, with un specified severity L97.429 and DM neuro manif type II E11.49 [facility] [address] [id number] [address] [place] [address] June, Ulcer of heel, left, with un specified severity L97.429 and Ulcer of other part of foot L97.509 [facility] [address] [id number] [address] [place] [address] June, Ulcer of heel, left, with un specified severity L97.429 and Ulcer of foot, left, with unspecified severity L97.529 [facility] [address] [id number] [address] [place] [address] May, [place] [address] [facility] [id number] [address] [place] [address] May, [place] [address] [facility] [id number] [address] [place] [address] Apr, DM neuro manif type II E11.4 9 ; Hypertension I10 and Sleep apnea in adult G47.33 [facility] [address] [place] [id number] [address] [place] [address] Apr, [place] [address] [facility] [id number] [address] [place] [address] Apr, Ulcer of foot L97.509 and DM neuro manif type II E11.49 [place] [address] [facility] [id number] [address] [place] [address] Apr, Ulcer of other part of foot L97.509 and DM neuro manif type II E11.49 [facility] [address] [id number] [address] [place] [address] Apr, Onychomycosis B35.1 ; Ingrow n toenail L60.0 ; Impaired circulation I99.9 and DM neuro manif type II E11.49 [facility] [address] [id number] [address] [place] [address] Mar, Ulcer of other part of foot L97.509 ; Onychomycosis B35.1 and Diabetes mellitus E11.9 [place] [address] [address] Dec, Encounter for immunization Z 23 ; Hypertension I10 and Diabetes mellitus E11.[address] [address] Dec, [place] [address] [address] Dec, CAD (coronary artery disease ) I25.10 ; Hypertension I10 ; Left leg claudication I73.9 and Hyperlipidemia E78.[address] [address] Nov, Onychomycosis B35.1 and Vin ertoe M20.[address] [address] Sep, Coronary atherosclerosis of unspecified type of vessel, [place] or graft 414.[address] [address] Sep, Coronary atherosclerosis of unspecified type of vessel, [place] or graft 414.00 and Diabetes 250.00 [place] [address] [address] May, [place] [address] [address] May, [place] [address] [address] Apr, [place] [address] [address] Apr, [place] [address] [address] Apr, [place] [address] [address] Apr, [facility] [address] [id number] [address] [place] [address], [place] [address] Mar, [facility] [address] [id number] [address] [place] [address], [place] [address] Mar, [facility] [address] [id number] [address] [place] [address], [place] [address] Jan, [facility] [address] [id number] [address] [place] [address], [place] [address] Jan, [facility] [address] [id number] [address] [place] [address], [place] [address] Jan, [facility] [address] [id number] [address] [place] [address], [place] [address] Jan, [facility] [address] [id number] [address] [place] [address], [place] [address] Jan, [facility] [address] [id number] [address] [place] [address], [place] [address] Jan, [facility] [address] [id number] [address] [place] [address], [place] [address] Jan, [facility] [address] [id number] [address] [place] [address], [place] [address] Jan, [facility] [address] [id number] [address] [place] [address], [place] [address] Jan, [facility] [address] [id number] [address] [place] [address], [place] [address] Jan, [facility] [address] [id number] [address] [place] [address], [place] [address] Jan, [facility] [address] [id number] [address] [place] [address], [place] [address] Nov, [facility] [address] [id number] [address] [place] [address], [place] [address] Nov, [facility] [address] [id number] [facility] [place] [address] Nov, [facility] [address] [id number] [address] [place] [address], [place] [address] Nov, [facility] [address] [id number] [address] [place] [address], [place] [address] 15 Nov, 2013 [facility] [address] [id number] [address] [place] [address], [place] [address] 15 Nov, 2013 [facility] [address] [id number] [address] [place] [address], [place] [address] 19 Oct, 2013 [facility] [address] [id number] [address] [place] [address], [place] [address] 19 Oct, 2013 [facility] [address] [id number] [address] [place] [address], [place] [address] 19 Oct, 2013 [facility] [address] [id number] [address] [place] [address], [place] [address] 19 Oct, 2013 [facility] [address] [id number] [address] [place] [address], [place] [address] 05 Oct, 2013 [facility] [address] [id number] [address] [place] [address], [place] [address] 05 Oct, 2013 [facility] [address] [id number] [address] [place] [address], [place] [address] Sep, [facility] [address] [id number] [address] [place] [address], [place] [address] Sep, [facility] [address] [id number] [address] [place] [address], [place] [address] 15 Sep, 2013 [facility] [address] [id number] [address] [place] [address], [place] [address] Sep, [facility] [address] [id number] [address] [place] [address], [place] [address] Sep, [facility] [address] [id number] [address] [place] [address], [place] [address] Sep, [facility] [address] [id number] [facility] [place] [address] Aug, [facility] [address] [id number] [facility] [place] [address] Aug, [facility] [address] [id number] [facility] [place] [address] Aug, [facility] [address] [id number] [address] [place] [address], [place] [address] Aug, [facility] [address] [id number] [address] [place] [address], [place] [address] Aug, [facility] [address] [id number] [address] [place] [address], [place] [address] Aug, [facility] [address] [id number] [address] [place] [address], [place] [address] Jul, [facility] [address] [id number] [address] [place] [address], [place] [address] Jul, [facility] [address] [id number] [address] [place] [address], [place] [address] Jul, [facility] [address] [id number] [address] [place] [address], [place] [address] Jul, [facility] [address] [id number] [address] [place] [address], [place] [address] June, [facility] [address] [id number] [address] [place] [address], [place] [address] June, [facility] [address] [id number] [address] [place] [address], [place] [address] June, [facility] [address] [id number] [address] [place] [address], [place] [address] June, [facility] [address] [id number] [address] [place] [address], [place] [address] May, [facility] [address] [id number] [address] [place] [address], [place] [address] May, [facility] [address] [id number] [address] [place] [address], [place] [address] May, [facility] [address] [id number] [address] [place] [address], [place] [address] May, [facility] [address] [id number] [address] [place] [address], [place] [address] May, [facility] [address] [id number] [address] [place] [address], [place] [address] May, [facility] [address] [id number] [address] [place] [address], [place] [address] Apr, [facility] [address] [id number] [address] [place] [address], [place] [address] Apr, [facility] [address] [id number] [address] [place] [address], [place] [address] Apr, [facility] [address] [id number] [address] [place] [address], [place] [address] Apr, [facility] [address] [id number] [address] [place] [address], [place] [address] Apr, [facility] [address] [id number] [address] [place] [address], [place] [address] Apr, [facility] [address] [id number] [address] [place] [address], [place] [address] Apr, [facility] [address] [id number] [address] [place] [address], [place] [address] Jan, [facility] [address] [id number] [address] [place] [address], [place] [address] Jan, [facility] [address] [id number] [address] [place] [address], [place] [address] Jan, [facility] [address] [id number] [address] [place] [address], [place] [address] Jan, [facility] [address] [id number] [address] [place] [address], [place] [address] Jan, [facility] [address] [id number] [address] [place] [address], [place] [address] Jan, [facility] [address] [id number] [address] [place] [address], [place] [address] Dec, [facility] [address] [id number] [address] [place] [address], [place] [address] Dec, [facility] [address] [id number] [address] [place] [address], [place] [address] Dec, [facility] [address] [id number] [address] [place] [address], [place] [address] Dec, [facility] [address] [id number] [address] [place] [address], [place] [address] Dec, [facility] [address] [id number] [address] [place] [address] Dec, [facility] [address] [id number] [address] [place] [address], [place] [address] Nov, [facility] [address] [id number] [address] [place] [address] Oct, [facility] [address] [id number] [address] [place] [address] Oct, [facility] [address] [id number] [address] [place] [address] Aug, [facility] [address] [id number] [address] [place] [address] Aug, [facility] [address] [id number] [address] [place] [address] Jul, [facility] [address] [id number] [address] [place] [address] June, [facility] [address] [id number] [address] [place] [address] Apr, [facility] [address] [id number] [address] [place] [address], [place] [address] Apr, [facility] [address] [id number] [address] [place] [address], [place] [address] Apr, [facility] [address] [id number] [address] [place] [address], [place] [address] Apr, [facility] [address] [id number] [address] [place] [address], [place] [address] Mar, [facility] [address] [id number] [address] [place] [address], [place] [address] Jan, [facility] [address] [id number] [address] [place] [address], [place] [address] Jan, [facility] [address] [id number] [address] [place] [address], [place] [address] Jan, [facility] [address] [id number] [address] [place] [address], [place] [address] Jan, [facility] [address] [id number] [address] [place] [address], [place] [address] Jan, [facility] [address] [id number] [address] [place] [address], [place] [address] Jan, [facility] [address] [id number] [address] [place] [address], [place] [address] Jan, [facility] [address] [id number] [address] [place] [address], [place] [address] Jan, [facility] [address] [id number] [address] [place] [address], [place] [address] Nov, [facility] [address] [id number] [address] [place] [address], [place] [id number] Nov, [facility] [address] [id number] [address] [place] [address], [place] [id number] Nov, [facility] [address] [id number] [address] [place] [address], [place] [id number] 16 Dec, 2011 [facility] [address] [id number] [address] [place] [address], [place] [id number] 17 Nov, 2011 [facility] [address] [id number] [address] [place] [address], [place] [id number] 24 Oct, 2011 [facility] [address] [id number] [address] [place] [address], [place] [id number] 14 Aug, 2011 [facility] [address] [id number] [address] [place] [address], [place] [id number] 14 Aug, 2011 [facility] [address] [id number] [address] [place] [address], [place] [id number] 14 Aug, 2011 [facility] [address] [id number] [address] [place] [address], [place] [id number] 13 Aug, 2011 [facility] [address] [id number] [address] [place] [address], [place] [id number] 13 Aug, 2011 [facility] [address] [id number] [address] [place] [address], [place] [id number] Apr, [facility] [address] [id number] [address] [place] [address], [place] [id number] 16 Apr, 2011 [facility] [address] [id number] [address] [place] [address], [place] [id number] 16 Apr, 2011 [facility] [address] [id number] [address] [place] [address], [place] [id number] Mar, [facility] [address] [id number] [address] [place] [address], [place] [id number] Mar, [facility] [address] [id number] [address] [place] [address], [place] [id number] Dec, [facility] [address] [id number] [address] [place] [address], [place] [id number] Dec, [facility] [address] [id number] [address] [place] [address], [place] [id number] Dec, IMMUNIZATIONS No Known Immunizations SOCIAL HISTORY Never Assessed REASON FOR VISIT Diabetes - Karon MCDONNELL, Med Refills PLAN OF CARE Activity Details Follow Up 3 Months Reason: VITAL SIGNS Height 75 in 2017-07-23 Weight 235.0 lbs 2017-07-23 Temperature 98.3 degrees Fahrenheit 2017-07-23 Heart Rate 68 bpm 2017-07-23 Respiratory Rate 18 2017-07-23 BMI 29.37 kg/m2 2017-07-23 Blood pressure systolic 118 mmHg 2017-07-23 Blood pressure diastolic 64 mmHg 2017-07-23 MEDICATIONS Medication Instructions Dosage Frequency Start Date End Date Duration S tatus Multi Vitamin Daily - Orally Once a day 1 tablet 24h Active Lisinopril 10 mg Orally Once a day 1 tablet 24h Active MetFORMIN HCl ER 500 mg Orally twice a day 500mg QAM/1000mg QPMl 12h Active Gabapentin 300 MG Orally Three times a day 1 capsule 8h Active Naproxen 500 mg Orally twice a day, pc 1 tablet Active Zoloft 50 mg Orally Once a day 1 tablet 24h 30 Active Metoprolol Succinate ER 25 MG Orally 2 times a day 1 tablet 12h Active Plavix 75 MG Orally Once a day 1 tablet 24h Active Simvastatin 20 mg Orally Once a day 1 tablet in the evening 24h Active Aspir-Low 81 MG Orally Once a day 1 tablet 24h Active Metformin HCl 1000 MG Orally twice a day 1 tablet with a meal 12h June, 30 day(s) Active RESULTS Name Result Date Reference Range A1C (IN HOUSE) 2017-07-23 A1C IN HOUSE 7.6 4.3 - 5.6 % Previous A1c 7.2 Lot [id number] Exp date 05/2019 PROCEDURES Procedure Date Ordered Result Body Site GLYCATED HEMOGLOBIN TEST July 23, 2017 INSTRUCTIONS MEDICATIONS ADMINISTERED No Known Medications [...]
--- OUTSIDE RECORDS SUMMARY | 2019-06-21 16:35 | XMS REPORT ---
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 Active Problem Generalized hyperhidrosis 780.8 Ac tive Problem CAD (coronary artery disease) I25.10 Active Problem Hypertension I10 Active Problem Diabetes 250.00 Active Problem Coronary atherosclerosis of unspecified type of vessel, [place] or graft 414.00 Active Problem Reflux esophagitis 530.11 Active Problem Left leg claudication I73.9 Active Problem Hyperlipidemia E78.5 Active Problem Other hammer toe (acquired) 735.4 Active Problem Dermatophytosis of nail 110.1 Acti ve Problem Chronic airway obstruction, not elsewhere classified 4 96 Active Problem Atherosclerosis of [place] arteries of th e extremities, unspecified 440.20 Active Medications Medication Code System Code Instructions Start Date End Date Status Dosage Neurontin [facility] [address]-89 300 MG TAKE ON E CAPSULE BY MOUTH THREE TIMES DAILY NEEDED FOR PAIN Results No Known Results Summary Purpose [employer] Submission
--- OUTSIDE RECORDS SUMMARY | 2019-06-21 16:36 | XMS REPORT ---
Author Nick Zhu Organization [employer] Address Unknown Phone Unavailable Care Team Providers Care Rn Charge Name Role Phone ELVIN ABDI CP Unavailable Allergies, Adverse Reactions, Alerts Substance Reaction Event Type Penicillin V Potassium Info Not Available Drug Allergy Problems Problem Type Condition Code Onset Dates Condition Statu s Problem Dermatophytosis of nail 110.1 Acti ve Problem Unspecified hereditary and idiopathic peripheral neuro jesse 356.9 Active Problem Chronic airway obstruction, not elsewhere classified 4 96 Active Problem CAD (coronary artery disease) I25.10 Active Problem Hypertension I10 Active Problem Diabetes mellitus E11.9 Active Problem Coronary atherosclerosis of unspecified type of vessel, [place] or graft 414.00 Active Problem Reflux esophagitis 530.11 Active Problem Left leg claudication I73.9 Active Problem Hyperlipidemia E78.5 Active Assessment Diabetes mellitus E11.9 Active Assessment Hypertension I10 Active Assessment Encounter for immunization Z23 A ctive Problem Other hammer toe (acquired) 735.4 Active Medications Medication Code System Code Instructions Start Date End Date Status Dosage Simvastatin [facility] [id number] 20 MG TAKE ONE TABLET BY MOUTH ONCE DAILY Metformin HCl [facility] [id number] 500 MG TAKE ONE TABLET BY MOUTH TWICE DAILY WITH MORNING AND EVENING MEALS FOR DIABETES Lisinopril ND 42686147926 10 MG TAKE ONE TABLET BY MOUTH ONCE DAILY IN THE MORNING Neurontin [facility] [address]-24 300 MG TAKE ON E CAPSULE BY MOUTH THREE TIMES DAILY NEEDED FOR PAIN Nexium ND 40425054247 40 MG TAKE ONE CAP KAROL BY MOUTH ONCE DAILY Metoprolol Tartrate ND 02579457466 25 MG TAKE ONE TABLET BY MOUTH TWICE DAILY Multivitamins [facility] [address] Orally not d efined Naproxen [facility] 04476780700 500 MG TAKE ONE T ABLET BY MOUTH TWICE DAILY WITH FOOD Aspirin [facility] [address] 81 MG Orally Once a day 1 tablet Viagra [facility] [address]-35 50 mg Apr 09, 2012 1 tab let by Oral route 1 time per day Procedures Procedure Coding System Code Date MICROALBUMIN, SEMIQUANT CPT-4 07084 Jan 18, 2015 MICROALBUMIN, QUANTITATIVE CPT-4 80394 Dec 312014 GLYCATED HEMOGLOBIN TEST CPT-4 26826 Jan 18, 2015 FLUARIX QUAD (3 & UP)-GSK-2014 CPT-4 22970 N ov 2014 Office Visit, Est Pt., Level 3 CPT-4 18069 N ov 2014 SINGLE IMMUNIZATION ADMIN CPT-4 00602 Dec Vital Signs Date/Time: Jan 18, 2015 Temperature 98.4 F Weight 225.8 lbs Height 75 in BMI 28.22 Index Blood Pressure Diastolic 75 mmHg Blood Pressure Systolic 125 mmHg Cardiac Monitoring Heart Rate 64 bpm Results Name Result Date Reference Range Unit Abnormali ty Flag A1C (IN HOUSE) MICROALBUMIN/CREATININE RATIO, URINE Immunizations Vaccine Administration Date FLUARIX QUAD (3 & UP)-GSK-2014Jan 18, 2015 Summary Purpose [employer] Submission
--- OUTSIDE RECORDS SUMMARY | 2019-06-21 16:36 | XMS REPORT ---
Author Author Nick SEGAL Organization [facility] Address [address] [place] [address] Care Team Providers Care Mower Operator Name Role Phone MARINO SEGAL Unavailable PROBLEMS Type Condition ICD9-CM Code MPE16-XP Code Onset Dates Condition S tatus SNOMED Code Problem CAD (coronary artery disease) I25.10 Active 17605473 Problem Hyperlipidemia E78.5 Active 81914 004 Problem Hypertension I10 Active 2674211 3 Problem Left leg claudication I73.9 Active 025539992 Problem Hammertoe M20.40 Active 696616505 Problem Reactive depression F32.9 Active 72592163 Problem DM neuro manif type II E11.49 Active 95963803 Problem Diabetes mellitus E11.9 Active 73 278431 Problem Cigarette nicotine dependence with nicotine-induced di sorder F17.219 Active 72465302 Problem Impaired circulation I99.9 Active 90870962 ALLERGIES No Information ENCOUNTERS Encounter Location Date Diagnosis [place] [id number] [facility] [place] [id number] [address] [place] [address] Jul, [place] [address] [place] [id number] [address] [place] [address] Apr, Onychomycosis B35.1 ; DM chuck ro manif type II E11.49 and Hammertoe M20.40 [facility] [address] [facility] [place] [id number] [address] [place] [address] Apr, Diabetes mellitus E11.9 and Hypertension I10 [facility] [address] [facility] [place] [id number] [address] [place] [address] Mar, Hypertension I10 and Diabete s mellitus E11.9 [facility] [address] [facility] [place] [id number] [address] [place] [address] Mar, Hypertension I10 and Diabete s mellitus E11.9 [facility] [address] [facility] [place] [id number] [address] [place] [address] Jan, Onychomycosis B35.1 and DM n euro manif type II E11.49 [facility] [address] [facility] [place] [id number] [address] [place] [address] Dec, [facility] [address] [facility] [place] [id number] [address] [place] [address] Dec, [facility] [address] [facility] [place] [id number] [address] [place] [address] Dec, Hypertension I10 and Diabete s mellitus E11.9 [place] [address] [place] [id number] [address] [place] [address] Oct, Encounter for immunization Z 23 ; Diabetes mellitus E11.9 ; Hypertension I10 and Cigarette nicotine dependence with nicotine-induced disorder F17.219 [place] [address] [place] [id number] [address] [place] [address] Oct, Diabetes mellitus E11.9 [place] [address] [place] [id number] [address] [place] [address] Oct, Onychomycosis B35.1 ; DM chuck ro manif type II E11.49 and Hammertoe M20.40 [place] [address] [place] [id number] [address] [place] [address] Jul, Diabetes mellitus E11.9 [place] [address] [facility] [place] [id number] [address] [place] [address] Jul, Onychomycosis B35.1 ; Hammer toe M20.40 and DM neuro manif type II E11.49 [facility] [address] [facility] [place] [id number] [address] [place] [address] May, Diabetes mellitus E11.9 [place] [address] [facility] [place] [id number] [address] [place] [address] May, Diabetes mellitus E11.9 [place] [address] [place] [id number] [address] [place] [address] Nov, Diabetes mellitus E11.9 ; Hy pertension I10 ; Reactive depression F32.9 and Encounter for immunization Z23 [place] [address] [address] Oct, Ulcer of other part of foot L97.[address] [address] Sep, Onychomycosis B35.1 ; Ulcer of heel, left, with unspecified severity L97.429 and DM neuro manif type II E11.[address] [address] Sep, [address] [address] Sep, Ulcer of heel, left, with un specified severity L97.[address] [address] Aug, Onychomycosis B35.1 ; Ulcer of heel, left, with unspecified severity L97.429 and DM neuro manif type II E11.[address] [address] Jul, Diabetes mellitus E11.9 ; Hy pertension I10 ; Cigarette nicotine dependence with nicotine-induced disorder F17.219 and CAD (coronary artery disease) I25.[address] [address] Jul, Left leg claudication I73.9 ; Right leg claudication I73.9 ; CAD (coronary artery disease) I25.10 ; Hypertension I10 and Hyperlipidemia E78.[address] [address] Jul, Ulcer of heel, left, with un specified severity L97.429 and DM neuro manif type II E11.[address] [address] June, Ulcer of heel, left, with un specified severity L97.429 and Ulcer of other part of foot L97.509 [place] [address] [place] [address] June, Ulcer of heel, left, with un specified severity L97.429 and Ulcer of foot, left, with unspecified severity L97.529 [place] [address] [place] [address] May, [place] [address] [place] [id number] [address] [place] [address] May, [place] [address] [address] Apr, DM neuro manif type II E11.4 9 ; Hypertension I10 and Sleep apnea in adult G47.[address] [address] Apr, [place] [address] [place] [address] Apr, Ulcer of foot L97.509 and DM neuro manif type II E11.49 [place] [address] [place] [id number] [address] [place] [address] Apr, Ulcer of other part of foot L97.509 and DM neuro manif type II E11.49 [place] [address] [place] [id number] [address] [place] [address] Apr, Onychomycosis B35.1 ; Ingrow n toenail L60.0 ; Impaired circulation I99.9 and DM neuro manif type II E11.49 [place] [address] [place] [id number] [address] [place] [address] Mar, Ulcer of other part of foot L97.509 ; Onychomycosis B35.1 and Diabetes mellitus E11.9 [place] [address] [place] [id number] [address] [place] [address] Dec, Encounter for immunization Z 23 ; Hypertension I10 and Diabetes mellitus E11.9 [facility] [address] [facility] [place] [id number] [address] [place] [address] Dec, [facility] [address] [place] [id number] [place] [address] Dec, CAD (coronary artery disease ) I25.10 ; Hypertension I10 ; Left leg claudication I73.9 and Hyperlipidemia E78.5 [facility] [address] [address] Nov, Onychomycosis B35.1 and Vin ertoe M20.40 [facility] [address] [address] Sep, Coronary atherosclerosis of unspecified type of vessel, [place] or graft 414.00 [place] [address] [address] Sep, Coronary atherosclerosis of unspecified type of vessel, [place] or graft 414.00 and Diabetes 250.00 [facility] [address] [place] [id number] [address] [place] [address] May, [facility] [address] [place] [id number] [place] [address] May, [facility] [address] [place] [id number] [address] [place] [address] Apr, [facility] [address] [place] [id number] [address] [place] [address] Apr, [facility] [address] [place] [id number] [address] [place] [address] Apr, [facility] [address] [place] [id number] [address] [place] [address] Apr, [facility] [address] [place] [id number] [address] [place] [address] Mar, [facility] [address] [place] [id number] [address] [place] [address] [place] [address] Mar, [facility] [address] [id number] [address] [place] [address], [place] [address] Jan, [facility] [address] [id number] [address] [place] [address], [place] [address] Jan, [facility] [address] [id number] [address] [place] [address], [place] [address] Jan, [facility] [address] [id number] [address] [place] [address], [place] [address] Jan, [facility] [address] [id number] [address] [place] [address], [place] [address] Jan, [facility] [address] [id number] [address] [place] [address], [place] [address] Jan, [facility] [address] [id number] [address] [place] [address], [place] [address] Jan, [facility] [address] [id number] [address] [place] [address], [place] [address] Jan, [facility] [address] [id number] [address] [place] [address], [place] [address] Jan, [facility] [address] [id number] [address] [place] [address], [place] [address] Jan, [facility] [place] [address] [id number] [address] [place] [address], [place] [address] Jan, [facility] [place] [address] [id number] [address] [place] [address], [place] [address] Nov, [facility] [place] [facility] [address] [id number] [address] [place] [address], [place] [address] Nov, [facility] [place] [facility] [address] [id number] [address] [place] [address], [place] [address] Nov, [facility] [address] [id number] [address] [place] [address], [place] [address] Nov, [facility] [place] [address] [id number] [address] [place] [address], [place] [address] 15 Nov, 2013 [facility] [place] [facility] [address] [id number] [address] [place] [address], [place] [address] 15 Nov, 2013 [facility] [place] [address] [id number] [address] [place] [address], [place] [address] 19 Oct, 2013 [facility] [place] [facility] [address] [id number] [address] [place] [address], [place] [address] 19 Oct, 2013 [facility] [place] [address] [id number] [address] [place] [address], [place] [address] 19 Oct, 2013 [facility] [place] [address] [id number] [address] [place] [address], [place] [address] 19 Oct, 2013 [facility] [place] [facility] [address] [id number] [address] [place] [address], [place] [address] 05 Oct, 2013 [facility] [place] [address] [id number] [address] [place] [address], [place] [address] 05 Oct, 2013 [facility] [address] [id number] [address] [place] [address], [place] [address] Sep, [facility] [address] [id number] [address] [place] [address], [place] [address] Sep, [facility] [place] [address] [id number] [address] [place] [address], [place] [address] Sep, [facility] [address] [id number] [address] [place] [address], [place] [address] Sep, [facility] [place] [address] [id number] [address] [place] [address], [place] [address] Sep, [facility] [place] [facility] [address] [id number] [address] [place] [address], [place] [address] Sep, [facility] [place] [address] [id number] [address] [place] [address], [place] [address] Aug, [facility] [place] [address] [id number] [address] [place] [address], [place] [address] Aug, [facility] [address] [id number] [facility] [place] [address] Aug, [facility] [place] [address] [id number] [address] [place] [address], [place] [address] Aug, [facility] [address] [id number] [address] [place] [address], [place] [address] Aug, [facility] [place] [facility] [address] [id number] [address] [place] [address], [place] [address] Aug, [facility] [address] [id number] [address] [place] [address], [place] [address] Jul, [facility] [address] [id number] [address] [place] [address], [place] [address] Jul, [facility] [address] [id number] [address] [place] [address], [place] [address] Jul, [facility] [address] [id number] [address] [place] [address], [place] [address] Jul, [facility] [address] [id number] [address] [place] [address], [place] [address] June, [facility] [address] [id number] [address] [place] [address], [place] [address] June, [facility] [address] [id number] [address] [place] [address], [place] [address] June, [facility] [address] [id number] [address] [place] [address], [place] [address] June, [facility] [address] [id number] [address] [place] [address], [place] [address] May, [facility] [address] [id number] [address] [place] [address], [place] [address] May, [facility] [place] [facility] [address] [id number] [address] [place] [address], [place] [address] May, [facility] [place] [address] [id number] [address] [place] [address] May, [facility] [address] [id number] [address] [place] [address], [place] [address] May, [facility] [address] [id number] [address] [place] [address], [place] [address] May, [facility] [address] [id number] [address] [place] [address], [place] [address] Apr, [facility] [address] [id number] [address] [place] [address], [place] [address] Apr, [facility] [address] [id number] [address] [place] [address], [place] [address] Apr, [facility] [address] [id number] [address] [place] [address], [place] [address] Apr, [facility] [address] [id number] [address] [place] [address], [place] [address] Apr, [facility] [address] [id number] [address] [place] [address], [place] [address] Apr, [facility] [address] [id number] [address] [place] [address], [place] [address] Apr, [facility] [address] [id number] [address] [place] [address], [place] [address] Jan, [facility] [address] [id number] [address] [place] [address], [place] [address] Jan, [facility] [address] [id number] [address] [place] [address], [place] [address] Jan, [facility] [address] [id number] [address] [place] [address], [place] [address] Jan, [facility] [address] [id number] [address] [place] [address], [place] [address] Jan, [facility] [address] [id number] [address] [place] [address], [place] [address] Jan, [facility] [address] [id number] [address] [place] [address], [place] [address] Dec, [facility] [address] [id number] [address] [place] [address], [place] [address] Dec, [facility] [address] [id number] [address] [place] [address], [place] [address] Dec, [facility] [address] [id number] [address] [place] [address], [place] [address] Dec, [facility] [address] [id number] [address] [place] [address], [place] [address] Dec, [facility] [address] [id number] [address] [place] [address], [place] [address] Dec, [facility] [address] [id number] [address] [place] [address], [place] [address] Nov, [facility] [address] [id number] [address] [place] [address], [place] [address] Oct, [facility] [address] [id number] [address] [place] [address], [place] [address] Oct, [facility] [address] [id number] [address] [place] [address], [place] [address] Aug, [facility] [address] [id number] [address] [place] [address], [place] [address] Aug, [facility] [address] [id number] [address] [place] [address] Jul, [facility] [address] [id number] [address] [place] [address], [place] [address] June, [facility] [place] [facility] [address] [id number] [address] [place] [address], [place] [address] Apr, [facility] [address] [id number] [address] [place] [address], [place] [address] Apr, [facility] [place] [facility] [address] [id number] [address] [place] [address], [place] [address] 08 Apr, 2012 [facility] [address] [id number] [address] [place] [address], [place] [address] 04 Apr, 2012 [facility] [address] [id number] [address] [place] [address], [place] [address] Mar, [facility] [address] [id number] [address] [place] [address], [place] [address] Jan, [facility] [address] [id number] [address] [place] [address], [place] [address] Jan, [facility] [address] [id number] [address] [place] [address], [place] [address] Jan, [facility] [address] [id number] [address] [place] [address], [place] [address] Jan, [facility] [address] [id number] [address] [place] [address], [place] [address] Jan, [facility] [address] [id number] [address] [place] [address], [place] [address] Jan, [facility] [address] [id number] [address] [place] [address], [place] [address] Jan, [facility] [address] [id number] [address] [place] [address], [place] [address] Jan, [facility] [address] [id number] [address] [place] [address], [place] [address] 16 Dec, 2011 [facility] [address] [id number] [address] [place] [address], [place] [address] 16 Dec, 2011 [facility] [address] [id number] [address] [place] [address], [place] [address] Nov, [facility] [address] [id number] [address] [place] [address], [place] [address] 16 Dec, 2011 [facility] [address] [id number] [address] [place] [address], [place] [address] 17 Nov, 2011 [facility] [address] [id number] [address] [place] [address] Sep, [facility] [address] [id number] [address] [place] [address] 14 Aug, 2011 [facility] [address] [id number] [address] [place] [address] 14 Aug, 2011 [facility] [address] [id number] [address] [place] [address] 14 Aug, 2011 [facility] [address] [id number] [address] [place] [address] Jul, [facility] [address] [id number] [address] [place] [address] Jul, [facility] [address] [id number] [address] [place] [address] Apr, [facility] [address] [id number] [address] [place] [address] Apr, [facility] [address] [id number] [address] [place] [phone] Apr, [facility] [address] [id number] [address] [place] [phone] Mar, [facility] [address] [id number] [address] [place] [id number] Mar, [facility] [address] [id number] [address] [place] [id number] Dec, [facility] [address] [id number] [address] [place] [phone] Dec, [facility] [address] [id number] [address] [place] [id number] Dec, IMMUNIZATIONS No Known Immunizations SOCIAL HISTORY Never Assessed REASON FOR VISIT 3 month f/u. Consult Dr. Sgeal;Vladislav RT(R) PLAN OF CARE Activity Details Follow Up prn Reason: VITAL SIGNS Height 75 in 2016-11-07 Blood pressure systolic 132 mmHg 2016-11-07 Blood pressure diastolic 76 mmHg 2016-11-07 MEDICATIONS Unknown Medications RESULTS No Results PROCEDURES Procedure Date Ordered Result Body Site DEBRIDE NAIL, 1-Nov 07, 2016 INSTRUCTIONS MEDICATIONS ADMINISTERED No Known Medications [...]
--- OUTSIDE RECORDS SUMMARY | 2019-06-21 16:36 | XMS REPORT ---
Author Author Nick ABDI Organization [facility] Address [address] [place] [address] Care Team Providers Care Industrial Registered Nurse Name Role Phone ELVIN ABDI Unavailable PROBLEMS Type Condition ICD9-CM Code ZMR84-CX Code Onset Dates Condition S tatus SNOMED Code Problem Hypertension I10 Active 1530284 3 Problem Diabetes mellitus E11.9 Active 73 448104 Problem Hyperlipidemia E78.5 Active 66353 004 Problem Left leg claudication I73.9 Active 367718655 Problem CAD (coronary artery disease) I25.10 Active 81365970 Problem Arthritis M19.90 Active 7294516 Problem Hammertoe M20.40 Active 963238278 Problem Impaired circulation I99.9 Active 17502884 Problem DM neuro manif type II E11.49 Active 52201742 Problem Reactive depression F32.9 Active 27744995 Problem Cigarette nicotine dependence with nicotine-induced di sorder F17.219 Active 58623934 ALLERGIES No Information ENCOUNTERS Encounter Location Date Diagnosis [place] [facility] [id number] [address] [place] [address] Jan, [facility] [address] [facility] [id number] [address] [place] [address] Oct, [facility] [address] [facility] [id number] [address] [place] [address] Jul, Elevated blood sugar R73.9 a nd Neck pain M54.2 [facility] [address] [facility] [id number] [address] [place] [address] 18 Jul, 2017 [facility] [address] [facility] [id number] [address] [place] [phone] 08 Jul, 2017 Onychomycosis B35.1 and DM n euro manif type II E11.49 [facility] [address] [address] Jul, [place] [address] [address] June, Hyperlipidemia E78.5 [place] [address] [address] June, Diabetes mellitus E11.9 ; CA D (coronary artery disease) I25.10 ; Arthritis M19.90 and Hyperlipidemia E78.5 [place] [address] [address] June, [place] [address] [address] Apr, Onychomycosis B35.1 ; DM chuck ro manif type II E11.49 and Hammertoe M20.40 [place] [address] [address] Apr, Diabetes mellitus E11.9 and Hypertension I10 [place] [address] [address] Mar, Hypertension I10 and Diabete s mellitus E11.9 [place] [address] [address] Mar, Hypertension I10 and Diabete s mellitus E11.9 [place] [address] [address] Jan, Onychomycosis B35.1 and DM n euro manif type II E11.49 [place] [address] [address] Dec, [place] [address] [address] Dec, [place] [address] [address] Dec, Hypertension I10 and Diabete s mellitus E11.9 [place] [address] [place] [address] Oct, Encounter for immunization Z 23 ; Diabetes mellitus E11.9 ; Hypertension I10 and Cigarette nicotine dependence with nicotine-induced disorder F17.219 [place] [address] [place] [id number] [address] [place] [address] Oct, Diabetes mellitus E11.9 [place] [address] [address] Oct, Onychomycosis B35.1 ; DM chuck ro manif type II E11.49 and Hammertoe M20.[address] [address] Jul, Diabetes mellitus E11.9 [place] [address] [address] Jul, Onychomycosis B35.1 ; Hammer toe M20.40 and DM neuro manif type II E11.49 [place] [address] [place] [address] May, Diabetes mellitus E11.[address] [address] May, Diabetes mellitus E11.9 [place] [address] [address] Nov, Diabetes mellitus E11.9 ; Hy pertension I10 ; Reactive depression F32.9 and Encounter for immunization Z23 [place] [address] [place] [address] Oct, Ulcer of other part of foot L97.509 [place] [id number] [place] [address] Sep, Onychomycosis B35.1 ; Ulcer of heel, left, with unspecified severity L97.429 and DM neuro manif type II E11.49 [place] [id number] [address] [place] [address] Sep, [place] [address] [facility] [id number] [address] [place] [address] Sep, Ulcer of heel, left, with un specified severity L97.429 [place] [address] [facility] [id number] [address] [place] [address] Aug, Onychomycosis B35.1 ; Ulcer of heel, left, with unspecified severity L97.429 and DM neuro manif type II E11.49 [place] [address] [facility] [id number] [address] [place] [address] Jul, Diabetes mellitus E11.9 ; Hy pertension I10 ; Cigarette nicotine dependence with nicotine-induced disorder F17.219 and CAD (coronary artery disease) I25.10 [place] [id number] [place] [address] Jul, Left leg claudication I73.9 ; Right leg claudication I73.9 ; CAD (coronary artery disease) I25.10 ; Hypertension I10 and Hyperlipidemia E78.5 [place] [address] [facility] [id number] [address] [place] [address] Jul, Ulcer of heel, left, with un specified severity L97.429 and DM neuro manif type II E11.49 [place] [address] [facility] [id number] [address] [place] [address] June, Ulcer of heel, left, with un specified severity L97.429 and Ulcer of other part of foot L97.509 [place] [address] [facility] [id number] [address] [place] [address] June, Ulcer of heel, left, with un specified severity L97.429 and Ulcer of foot, left, with unspecified severity L97.529 [place] [address] [facility] [id number] [address] [place] [address] May, [place] [address] [place] [id number] [address] [place] [address] May, [place] [address] [facility] [id number] [address] [place] [address] Apr, DM neuro manif type II E11.4 9 ; Hypertension I10 and Sleep apnea in adult G47.33 [place] [facility] [id number] [address] [place] [address] Apr, [place] [address] [place] [id number] [address] [place] [address] Apr, Ulcer of foot L97.509 and DM neuro manif type II E11.49 [place] [address] [facility] [id number] [address] [place] [address] Apr, Ulcer of other part of foot L97.509 and DM neuro manif type II E11.49 [place] [address] [place] [id number] [address] [place] [address] Apr, Onychomycosis B35.1 ; Ingrow n toenail L60.0 ; Impaired circulation I99.9 and DM neuro manif type II E11.49 [place] [address] [place] [id number] [address] [place] [address] Mar, Ulcer of other part of foot L97.509 ; Onychomycosis B35.1 and Diabetes mellitus E11.9 [place] [address] [place] [id number] [address] [place] [address] Dec, Encounter for immunization Z 23 ; Hypertension I10 and Diabetes mellitus E11.9 [place] [address] [place] [address] Dec, [address] [address] Dec, CAD (coronary artery disease ) I25.10 ; Hypertension I10 ; Left leg claudication I73.9 and Hyperlipidemia E78.5 [place] [address] [place] [id number] [address] [place] [phone] 09 Nov, 2014 Onychomycosis B35.1 and Vin ertoe M20.40 [facility] [address] [id number] [address] [place] [address] Sep, Coronary atherosclerosis of unspecified type of vessel, eagle or graft 414.00 [facility] [address] [id number] [address] [place] [address] Sep, Coronary atherosclerosis of unspecified type of vessel, eagle or graft 414.00 and Diabetes 250.00 [facility] [address] [id number] [address] [place] [address] May, [facility] [address] [id number] [address] [place] [address] May, [facility] [address] [id number] [address] [place] [phone] Apr, [facility] [address] [id number] [address] [place] [address] Apr, [facility] [address] [id number] [address] [place] [address] Apr, [facility] [address] [id number] [address] [place] [phone] Apr, [facility] [address] [id number] [address] [place] [address] Mar, [facility] [address] [id number] [address] [place] [address] Mar, [facility] [address] [id number] [address] [place] [address] Jan, [facility] [address] [id number] [address] [place] [address] Jan, [facility] [address] [id number] [address] [place] [phone] Jan, [facility] [address] [id number] [address] [place] [phone] Jan, [facility] [address] [id number] [address] [place] [phone] Jan, [facility] [address] [id number] [address] [place] [address], [place] [address] Jan, [facility] [address] [id number] [address] [place] [address], [place] [address] Jan, [facility] [address] [id number] [address] [place] [address], [place] [address] Jan, [facility] [address] [id number] [address] [place] [address], [place] [address] Jan, [facility] [address] [id number] [address] [place] [address], [place] [address] Jan, [facility] [address] [id number] [address] [place] [address], [place] [address] Jan, [facility] [address] [id number] [address] [place] [address], [place] [address] Nov, [facility] [address] [id number] [address] [place] [address], [place] [address] Nov, [facility] [address] [id number] [address] [place] [address], [place] [address] Nov, [facility] [address] [id number] [address] [place] [address], [place] [address] Nov, [facility] [address] [id number] [address] [place] [address], [place] [address] Nov, [facility] [address] [id number] [address] [place] [phone] Nov, [facility] [address] [id number] [address] [place] [address], [place] [address] Oct, [facility] [address] [id number] [address] [place] [address], [place] [address] Oct, [facility] [address] [id number] [address] [place] [address], [place] [address] Oct, [facility] [address] [id number] [facility] [place] [address] Oct, [facility] [address] [id number] [facility] [place] [address] Oct, [facility] [address] [id number] [address] [place] [address], [place] [address] Oct, [facility] [address] [id number] [address] [place] [address], [place] [address] Sep, [facility] [address] [id number] [address] [place] [address], [place] [address] Sep, [facility] [address] [id number] [address] [place] [address], [place] [address] Sep, [facility] [address] [id number] [address] [place] [address], [place] [address] Sep, [facility] [address] [id number] [address] [place] [address], [place] [address] Sep, [facility] [address] [id number] [address] [place] [address], [place] [address] Sep, [facility] [address] [id number] [address] [place] [address], [place] [address] Aug, [facility] [address] [id number] [address] [place] [address], [place] [address] Aug, [facility] [address] [id number] [address] [place] [address], [place] [address] Aug, [facility] [address] [id number] [address] [place] [address], [place] [address] Aug, [facility] [address] [id number] [address] [place] [address], [place] [address] Aug, [facility] [address] [id number] [address] [place] [address], [place] [address] Aug, [facility] [address] [id number] [address] [place] [address], [place] [address] Jul, [facility] [address] [id number] [address] [place] [address], [place] [address] Jul, [facility] [address] [id number] [address] [place] [address], [place] [address] Jul, [facility] [address] [id number] [address] [place] [address], [place] [address] Jul, [facility] [address] [id number] [address] [place] [address], [place] [address] June, [facility] [address] [id number] [address] [place] [address], [place] [address] June, [facility] [address] [id number] [address] [place] [address], [place] [address] June, [facility] [address] [id number] [address] [place] [address], [place] [address] June, [facility] [address] [id number] [address] [place] [address], [place] [address] May, [facility] [address] [id number] [address] [place] [address], [place] [address] May, [facility] [address] [id number] [address] [place] [address], [place] [address] May, [facility] [address] [id number] [address] [place] [address], [place] [address] May, [facility] [address] [id number] [address] [place] [address], [place] [address] May, [facility] [address] [id number] [address] [place] [address], [place] [address] May, [facility] [address] [id number] [address] [place] [address], [place] [address] Apr, [facility] [address] [id number] [address] [place] [address], [place] [address] Apr, [facility] [address] [id number] [address] [place] [address] Apr, [facility] [address] [id number] [address] [place] [address], [place] [address] Apr, 2013 [facility] [address] [id number] [address] [place] [address], [place] [address] Apr, 2013 [facility] [address] [id number] [address] [place] [address], [place] [address] Apr, 2013 [facility] [address] [id number] [address] [place] [address], [place] [address] Apr, [facility] [address] [id number] [address] [place] [address], [place] [address] Jan, [facility] [address] [id number] [address] [place] [address], [place] [address] Jan, [facility] [address] [id number] [address] [place] [address], [place] [address] Jan, [facility] [address] [id number] [address] [place] [address], [place] [address] Jan, [facility] [address] [id number] [address] [place] [address], [place] [address] Jan, [facility] [address] [id number] [address] [place] [address], [place] [address] Jan, [facility] [address] [id number] [address] [place] [address], [place] [address] 15 Dec, 2012 [facility] [address] [id number] [address] [place] [address] Dec, [facility] [address] [id number] [address] [place] [address] Dec, [facility] [address] [id number] [address] [place] [address] Dec, [facility] [address] [id number] [address] [place] [address] Dec, [facility] [address] [id number] [address] [place] [address], [place] [address] Dec, [facility] [address] [id number] [address] [place] [address], [place] [address] Nov, [facility] [address] [id number] [address] [place] [address], [place] [address] Oct, [facility] [address] [id number] [address] [place] [address], [place] [address] Oct, [facility] [address] [id number] [address] [place] [address], [place] [address] Aug, [facility] [address] [id number] [address] [place] [address], [place] [address] Aug, [facility] [address] [id number] [address] [place] [address], [place] [address] Jul, [facility] [address] [id number] [address] [place] [address], [place] [address] June, [facility] [address] [id number] [address] [place] [address], [place] [address] Apr, [facility] [address] [id number] [address] [place] [address], [place] [address] Apr, [facility] [address] [id number] [address] [place] [address], [place] [address] Apr, [facility] [address] [id number] [address] [place] [address], [place] [address] Apr, [facility] [address] [id number] [address] [place] [address], [place] [address] Mar, [facility] [address] [id number] [address] [place] [address], [place] [address] Jan, [facility] [address] [id number] [address] [place] [address], [place] [address] Jan, [facility] [address] [id number] [address] [place] [address] 13 Jan, 2012 [facility] [address] [id number] [address] [place] [address], [place] [address] 13 Jan, 2012 [facility] [address] [id number] [address] [place] [address], [place] [address] 12 Jan, 2012 [facility] [address] [id number] [address] [place] [address], [place] [address] 12 Jan, 2012 [facility] [address] [id number] [address] [place] [address], [place] [address] 12 Jan, 2012 [facility] [address] [id number] [address] [place] [address], [place] [address] 12 Jan, 2012 [facility] [address] [id number] [address] [place] [address], [place] [address] 16 Dec, 2011 [facility] [address] [id number] [address] [place] [address], [place] [phone] 16 Dec, 2011 [facility] [address] [id number] [address] [place] [address], [place] [id number] 16 Dec, 2011 [facility] [address] [id number] [address] [place] [address], [place] [phone] 16 Dec, 2011 [facility] [address] [id number] [address] [place] [address], [place] [phone] 17 Nov, 2011 [facility] [address] [id number] [address] [place] [address], [place] [phone] 24 Oct, 2011 [facility] [address] [id number] [address] [place] [phone] 14 Aug, 2011 [facility] [address] [id number] [address] [place] [address], [place] [phone] 14 Aug, 2011 [facility] [address] [id number] [address] [place] [phone] 14 Aug, 2011 [facility] [address] [id number] [address] [place] [address], [place] [id number] 13 Aug, 2011 [facility] [address] [id number] [address] [place] [id number] Jul, [facility] [address] [id number] [address] [place] [phone] Apr, [facility] [address] [id number] [address] [place] [phone] Apr, [facility] [address] [id number] [address] [place] [phone] Apr, [facility] [address] [id number] [address] [place] [phone] Mar, [facility] [address] [id number] [address] [place] [phone] Mar, [facility] [address] [id number] [address] [place] [phone] Dec, [facility] [address] [id number] [address] [place] [phone] Dec, [facility] [address] [id number] [address] [place] [phone] Dec, IMMUNIZATIONS No Known Immunizations SOCIAL HISTORY Never Assessed REASON FOR VISIT PLAN OF CARE VITAL SIGNS MEDICATIONS Medication Instructions Dosage Frequency Start Date End Date Duration S tatus Gabapentin 300 MG Orally Three times a day 1 capsule 8h Active Nexium 40 MG TAKE ONE CAPSULE BY MOUTH ONCE DAILY 30 Active Plavix 75 MG Orally Once a day 1 tablet 24h Active Lisinopril 10 mg Orally Once a day 1 tablet 24h Active MetFORMIN HCl ER 500 mg Orally twice a day 500mg QAM/1000mg QPMl 12h Active Zoloft 50 mg Orally Once [...]
--- OUTSIDE RECORDS SUMMARY | 2019-06-21 16:36 | XMS REPORT ---
Author Author Nick VILLELA [facility] eClinicalWorks Address Unknown Phone Unavailable Care Team Providers Care Interior Designer Name Role Phone SIVAKUMAR VILLELA CP Unavailable Allergies No Known Allergies Problems [...] I25.10 Active Problem Hypertension I10 Active Medications No Known Medications Results No Known Results Summary Purpose eClinicalWorks Submission
--- OUTSIDE RECORDS SUMMARY | 2019-06-21 16:36 | XMS REPORT ---
Author Author Nick SEGAL Organization [facility] Address [address] [place] [address] Care Team Providers Care Professor Of Food Biochemistry Name Role Phone MARINO SEGAL Unavailable PROBLEMS Type Condition ICD9-CM Code PRC60-YO Code Onset Dates Condition S tatus SNOMED Code Problem Hypertension I10 Active 9210388 3 Problem Diabetes mellitus E11.9 Active 73 180280 Problem Hyperlipidemia E78.5 Active 81175 004 Problem Left leg claudication I73.9 Active 664701183 Problem CAD (coronary artery disease) I25.10 Active 75482105 Problem Arthritis M19.90 Active 6987084 Problem Hammertoe M20.40 Active 428002575 Problem Impaired circulation I99.9 Active 29809405 Problem DM neuro manif type II E11.49 Active 62126360 Problem Reactive depression F32.9 Active 44547924 Problem Cigarette nicotine dependence with nicotine-induced di sorder F17.219 Active 31142610 ALLERGIES No Information ENCOUNTERS Encounter Location Date Diagnosis [facility] [address] [facility] [id number] [address] [place] [address] Jan, [facility] [address] [facility] [id number] [address] [place] [address] Jul, [facility] [address] [facility] [id number] [address] [place] [address] Jul, [facility] [address] [facility] [id number] [address] [place] [address] Jul, [facility] [address] [facility] [id number] [address] [place] [address] June, Hyperlipidemia E78.5 [facility] [address] [facility] [id number] [address] [place] [address] June, Diabetes mellitus E11.9 ; CA D (coronary artery disease) I25.10 ; Arthritis M19.90 and Hyperlipidemia E78.5 [place] [address] [address] June, [place] [address] [address] Apr, Onychomycosis B35.1 ; DM chuck ro manif type II E11.49 and Hammertoe M20.40 [place] [address] [place] [id number] [place] [address] Apr, Diabetes mellitus E11.9 and Hypertension I10 [place] [address] [address] Mar, Hypertension I10 and Diabete s mellitus E11.9 [place] [address] [address] Mar, Hypertension I10 and Diabete s mellitus E11.9 [place] [address] [address] Jan, Onychomycosis B35.1 and DM n euro manif type II E11.49 [place] [address] [address] Dec, [place] [address] [address] Dec, [place] [address] [address] Dec, Hypertension I10 and Diabete s mellitus E11.9 [place] [address] [address] Oct, Encounter for immunization Z 23 ; Diabetes mellitus E11.9 ; Hypertension I10 and Cigarette nicotine dependence with nicotine-induced disorder F17.219 [place] [address] [address] 08 Oct, 2016 Diabetes mellitus E11.9 [place] [address] [place] [id number] [address] [place] [address] Oct, Onychomycosis B35.1 ; DM chuck ro manif type II E11.49 and Hammertoe M20.40 [place] [address] [facility] [id number] [address] [place] [address] Jul, Diabetes mellitus E11.9 [place] [address] [facility] [id number] [address] [place] [address] Jul, Onychomycosis B35.1 ; Hammer toe M20.40 and DM neuro manif type II E11.49 [place] [address] [facility] [id number] [address] [place] [address] May, Diabetes mellitus E11.9 [place] [address] [place] [id number] [address] [place] [address] May, Diabetes mellitus E11.9 [place] [address] [place] [id number] [address] [place] [address] Nov, Diabetes mellitus E11.9 ; Hy pertension I10 ; Reactive depression F32.9 and Encounter for immunization Z23 [place] [address] [facility] [id number] [address] [place] [address] Oct, Ulcer of other part of foot L97.509 [place] [address] [facility] [id number] [address] [place] [address] Sep, Onychomycosis B35.1 ; Ulcer of heel, left, with unspecified severity L97.429 and DM neuro manif type II E11.49 [place] [address] [facility] [id number] [address] [place] [address] Sep, [place] [address] [facility] [id number] [address] [place] [address] Sep, Ulcer of heel, left, with un specified severity L97.429 [place] [address] [facility] [id number] [address] [place] [address] Aug, Onychomycosis B35.1 ; Ulcer of heel, left, with unspecified severity L97.429 and DM neuro manif type II E11.49 [place] [address] [facility] [id number] [address] [place] [address] Jul, Diabetes mellitus E11.9 ; Hy pertension I10 ; Cigarette nicotine dependence with nicotine-induced disorder F17.219 and CAD (coronary artery disease) I25.10 [place] [address] [address] Jul, Left leg claudication I73.9 ; Right leg claudication I73.9 ; CAD (coronary artery disease) I25.10 ; Hypertension I10 and Hyperlipidemia E78.5 [place] [address] [place] [id number] [place] [address] Jul, Ulcer of heel, left, with un specified severity L97.429 and DM neuro manif type II E11.49 [place] [address] [place] [id number] [address] [place] [address] June, Ulcer of heel, left, with un specified severity L97.429 and Ulcer of other part of foot L97.509 [place] [address] [address] June, Ulcer of heel, left, with un specified severity L97.429 and Ulcer of foot, left, with unspecified severity L97.529 [place] [address] [facility] [id number] [address] [place] [address] May, [place] [address] [facility] [id number] [address] [place] [address] May, [place] [address] [facility] [id number] [address] [place] [address] Apr, DM neuro manif type II E11.4 9 ; Hypertension I10 and Sleep apnea in adult G47.33 [place] [address] [place] [id number] [address] [place] [address] Apr, [place] [address] [place] [id number] [place] [address] Apr, Ulcer of foot L97.509 and DM neuro manif type II E11.49 [place] [address] [address] Apr, Ulcer of other part of foot L97.509 and DM neuro manif type II E11.[address] [address] Apr, Onychomycosis B35.1 ; Ingrow n toenail L60.0 ; Impaired circulation I99.9 and DM neuro manif type II E11.[address] [address] Mar, Ulcer of other part of foot L97.509 ; Onychomycosis B35.1 and Diabetes mellitus E11.[address] [address] Dec, Encounter for immunization Z 23 ; Hypertension I10 and Diabetes mellitus E11.[address] [address] Dec, [address] [address] Dec, CAD (coronary artery disease ) I25.10 ; Hypertension I10 ; Left leg claudication I73.9 and Hyperlipidemia E78.[address] [address] Nov, Onychomycosis B35.1 and Vin ertoe M20.[address] [address] Sep, Coronary atherosclerosis of unspecified type of vessel, [place] or graft 414.[address] [address] Sep, Coronary atherosclerosis of unspecified type of vessel, [place] or graft 414.00 and Diabetes 250.00 [facility] [place] [facility] [address] [id number] [address] [place] [address], [place] [address] 14 May, 2014 [facility] [address] [id number] [address] [place] [address], [place] [address] May, [facility] [place] [facility] [address] [id number] [address] [place] [address], [place] [address] Apr, [facility] [address] [id number] [address] [place] [address], [place] [address] Apr, [facility] [place] [facility] [address] [id number] [address] [place] [address], [place] [address] Apr, [facility] [address] [id number] [address] [place] [address], [place] [address] Apr, [facility] [address] [id number] [address] [place] [address], [place] [address] Mar, [facility] [address] [id number] [address] [place] [address], [place] [address] Mar, [facility] [address] [id number] [address] [place] [address], [place] [address] Jan, [facility] [address] [id number] [address] [place] [address], [place] [address] Jan, [facility] [address] [id number] [address] [place] [address], [place] [address] Jan, [facility] [place] [facility] [address] [id number] [address] [place] [address], [place] [address] Jan, [facility] [place] [facility] [address] [id number] [address] [place] [address], [place] [address] Jan, [facility] [place] [facility] [address] [id number] [address] [place] [address], [place] [address] Jan, [facility] [place] [facility] [address] [id number] [address] [place] [address], [place] [address] Jan, [facility] [place] [facility] [address] [id number] [address] [place] [address], [place] [address] Jan, [facility] [address] [id number] [address] [place] [address], [place] [address] Jan, [facility] [place] [facility] [address] [id number] [address] [place] [address], [place] [address] Jan, [facility] [address] [id number] [address] [place] [address], [place] [address] Jan, [facility] [place] [facility] [address] [id number] [address] [place] [address], [place] [address] Nov, [facility] [address] [id number] [address] [place] [address], [place] [address] Nov, [facility] [address] [id number] [address] [place] [address], [place] [address] Nov, [facility] [address] [id number] [address] [place] [address], [place] [address] Nov, [facility] [place] [facility] [address] [id number] [address] [place] [address], [place] [address] Nov, [facility] [address] [id number] [address] [place] [address], [place] [address] Nov, [facility] [place] [facility] [address] [id number] [address] [place] [address] Oct, [facility] [place] [facility] [address] [id number] [address] [place] [address] 19 Oct, 2013 [facility] [place] [facility] [address] [id number] [address] [place] [address] 19 Oct, 2013 [facility] [place] [facility] [address] [id number] [address] [place] [address], [place] [address] 19 Oct, 2013 [facility] [place] [facility] [address] [id number] [address] [place] [address], [place] [address] 05 Oct, 2013 [facility] [place] [facility] [address] [id number] [address] [place] [address], [place] [address] 05 Oct, 2013 [facility] [place] [facility] [address] [id number] [facility] [place] [address] Sep, [facility] [address] [id number] [address] [place] [address], [place] [address] Sep, [facility] [place] [facility] [address] [id number] [address] [place] [address], [place] [address] Sep, [facility] [address] [id number] [address] [place] [address], [place] [address] Sep, [facility] [place] [facility] [address] [id number] [address] [place] [address], [place] [address] Sep, [facility] [address] [id number] [address] [place] [address], [place] [address] Sep, [facility] [address] [id number] [address] [place] [address], [place] [address] Aug, [facility] [address] [id number] [address] [place] [address], [place] [address] Aug, [facility] [address] [id number] [address] [place] [address], [place] [address] Aug, [facility] [place] [facility] [address] [id number] [address] [place] [address], [place] [address] Aug, [facility] [address] [id number] [address] [place] [address], [place] [address] Aug, [facility] [place] [facility] [address] [id number] [address] [place] [address], [place] [address] Aug, [facility] [place] [facility] [address] [id number] [address] [place] [address], [place] [address] Jul, [facility] [place] [facility] [address] [id number] [address] [place] [address], [place] [address] Jul, [facility] [place] [facility] [address] [id number] [address] [place] [address], [place] [address] Jul, [facility] [place] [facility] [address] [id number] [address] [place] [address], [place] [address] Jul, [facility] [place] [facility] [address] [id number] [address] [place] [address], [place] [address] June, [facility] [address] [id number] [address] [place] [address], [place] [address] June, [facility] [address] [id number] [address] [place] [address], [place] [address] June, [facility] [address] [id number] [address] [place] [address], [place] [address] June, [facility] [address] [id number] [address] [place] [address], [place] [address] May, [facility] [address] [id number] [address] [place] [address], [place] [address] May, [facility] [address] [id number] [address] [place] [address], [place] [address] May, [facility] [address] [id number] [address] [place] [address], [place] [address] May, [facility] [address] [id number] [address] [place] [address], [place] [address] May, [facility] [address] [id number] [address] [place] [address], [place] [address] May, [facility] [address] [id number] [address] [place] [address], [place] [address] Apr, [facility] [address] [id number] [address] [place] [address], [place] [address] Apr, [facility] [address] [id number] [address] [place] [address], [place] [address] Apr, [facility] [address] [id number] [address] [place] [address], [place] [address] Apr, [facility] [address] [id number] [address] [place] [address], [place] [address] Apr, [facility] [address] [id number] [address] [place] [address] 05 Apr, 2013 [facility] [address] [id number] [address] [place] [address], [place] [address] Apr, [facility] [address] [id number] [address] [place] [address] Jan, [facility] [address] [id number] [address] [place] [address], [place] [address] Jan, [facility] [address] [id number] [address] [place] [address], [place] [address] Jan, [facility] [address] [id number] [address] [place] [address], [place] [address] Jan, [facility] [address] [id number] [address] [place] [address], [place] [address] Jan, [facility] [address] [id number] [address] [place] [address], [place] [address] Jan, [facility] [address] [id number] [address] [place] [address] Dec, [facility] [address] [id number] [address] [place] [address] Dec, [facility] [address] [id number] [address] [place] [address] Dec, [facility] [address] [id number] [address] [place] [address] Dec, [facility] [address] [id number] [address] [place] [address] Dec, [facility] [address] [id number] [address] [place] [address] Dec, [facility] [address] [id number] [address] [place] [address] Nov, [facility] [address] [id number] [address] [place] [address] Oct, [facility] [place] [facility] [address] [id number] [address] [place] [address], [place] [address] Oct, [facility] [address] [id number] [address] [place] [address], [place] [address] Aug, [facility] [address] [id number] [address] [place] [address], [place] [address] Aug, [facility] [address] [id number] [address] [place] [address], [place] [address] Jul, [facility] [address] [id number] [address] [place] [address], [place] [address] June, [facility] [address] [id number] [address] [place] [address], [place] [address] Apr, [facility] [address] [id number] [address] [place] [address], [place] [address] Apr, [facility] [address] [id number] [address] [place] [address], [place] [address] Apr, [facility] [address] [id number] [address] [place] [address], [place] [address] Apr, [facility] [address] [id number] [address] [place] [address], [place] [address] Mar, [facility] [address] [id number] [address] [place] [address], [place] [address] Jan, [facility] [address] [id number] [address] [place] [address], [place] [address] Jan, [facility] [address] [id number] [address] [place] [address], [place] [address] Jan, [facility] [address] [id number] [address] [place] [address], [place] [address] Jan, [facility] [address] [id number] [address] [place] [address], [place] [address] Jan, [facility] [address] [id number] [address] [place] [address], [place] [address] 12 Jan, 2012 [facility] [address] [id number] [address] [place] [address], [place] [address] 12 Jan, 2012 [facility] [place] [facility] [address] [id number] [address] [place] [address], [place] [address] 12 Jan, 2012 [facility] [place] [facility] [address] [id number] [address] [place] [address], [place] [address] 16 Dec, 2011 [facility] [place] [facility] [address] [id number] [address] [place] [address], [place] [address] 16 Dec, 2011 [facility] [address] [id number] [address] [place] [address], [place] [address] 16 Dec, 2011 [facility] [place] [facility] [address] [id number] [address] [place] [address], [place] [address] 16 Dec, 2011 [facility] [address] [id number] [address] [place] [address], [place] [address] 17 Nov, 2011 [facility] [place] [facility] [address] [id number] [address] [place] [address], [place] [address] 24 Oct, 2011 [facility] [place] [facility] [address] [id number] [address] [place] [address], [place] [address] 14 Aug, 2011 [facility] [place] [facility] [address] [id number] [address] [place] [address], [place] [address] 14 Aug, 2011 [facility] [place] [facility] [address] [id number] [address] [place] [id number] 14 Aug, 2011 [facility] [place] [facility] [address] [id number] [address] [place] [id number] 13 Aug, 2011 [facility] [place] [facility] [address] [id number] [address] [place] [address], [place] [address] 13 Aug, 2011 [facility] [place] [facility] [address] [id number] [address] [place] [address], [place] [address] 20 May, 2011 [facility] [place] [facility] [address] [id number] [address] [place] [address], [place] [address] 16 Apr, 2011 [facility] [place] [facility] [address] [id number] [address] [place] [phone] Apr, [facility] [address] [facility] [id number] [address] [place] [phone] Mar, [facility] [address] [facility] [id number] [address] [place] [phone] Mar, [facility] [address] [facility] [id number] [address] [place] [phone] Dec, [facility] [address] [facility] [id number] [address] [place] [phone] Dec, [facility] [address] [facility] [id number] [address] [place] [phone] Dec, IMMUNIZATIONS No Known Immunizations SOCIAL HISTORY Never Assessed REASON FOR VISIT 3 mo f/u. Consult Dr. Segal; Vladislav RT(R) PLAN OF CARE Activity Details Follow Up 3 Months Reason: VITAL SIGNS Height 75 in 2017-01-30 Blood pressure systolic 136 mmHg 2017-01-30 Blood pressure diastolic 80 mmHg 2017-01-30 MEDICATIONS Unknown Medications RESULTS No Results PROCEDURES Procedure Date Ordered Result Body Site DEBRIDE NAIL, 1-Jan 30, 2017 INSTRUCTIONS MEDICATIONS ADMINISTERED No Known Medications [...]
--- OUTSIDE RECORDS SUMMARY | 2019-06-21 16:36 | XMS REPORT ---
Author Author Nick ABDI Organization [employer] Address Unknown Phone Unavailable Care Team Providers Care Applied Computer Science Professor Name Role Phone ELVIN ABDI CP Unavailable [...] Instructions Start Date End Date Status Dosage Lisinopril [facility] [address]-57 10 mg Orally Once a day 1 tablet Simvastatin [facility] [address]-68 20 mg Orally Once a day 1 tablet Metoprolol Tartrate [facility] [address]-88 25 MG Orally Twice a day 1 tablet with food Nexium [facility] [address]-92 40 mg Orally Once a day ONE CAPSULE Naproxen [facility] [address]-55 500 MG Orally 1 tablet Metformin HCl [facility] [address]-92 500 MG Orally Twice a day 1 tablet with meals Neurontin [facility] [id number] 300 MG TAKE ONE CAPSULE BY MOUTH THREE TIMES DAILY NEEDED FOR PAIN Results No Known Results Summary Purpose [employer] Submission
--- OUTSIDE RECORDS SUMMARY | 2019-06-21 16:36 | XMS REPORT ---
Author Author Nick ABDI Organization [employer] Address Unknown Phone Unavailable Care Team Providers Care Naturopathic Oncology Provider Name Role Phone ELVIN ABDI CP Unavailable Allergies, Adverse Reactions, Alerts Substance Reaction Event Type Penicillin V Potassium Info Not Available Drug Allergy Spiders Info Not Available Non Drug Allergy Artificial sweetner migraines, diarrhea Non Drug Allergy Bee Stings anaphylaxis Non Drug Allergy Problems Problem Type Condition Code Onset Dates Condition Statu s Assessment Diabetes mellitus E11.9 Active Problem Left leg claudication I73.9 Active Problem Hyperlipidemia E78.5 Active Problem Cigarette nicotine dependence with nicotine-induced di sorder F17.219 Active Problem Impaired circulation I99.9 Active Problem Reactive depression F32.9 Active Problem CAD (coronary artery disease) I25.10 Active Problem Hypertension I10 Active Problem DM neuro manif type II E11.49 Activ e Problem Diabetes mellitus E11.9 Active Assessment Encounter for immunization Z23 A ctive Assessment Reactive depression F32.9 Active Assessment Hypertension I10 Active Medications Medication Code System Code Instructions Start Date End Date Status Dosage Zoloft [facility] [address]-60 50 mg Orally Once a day Dec 27, 2015 1 tablet Simvastatin [facility] [address]-83 20 mg Orally Once a day 1 tablet in the evening Aspir-Low [facility] [address]-28 81 MG Orally Once a day 1 tablet Plavix [facility] [address]-46 75 MG Orally Once a day 1 tablet Naproxen [facility] [address]-49 500 MG Orally every 12 hrs 1 tablet as needed MetFORMIN HCl ER [facility] [address]-83 500 MG Orally Once a day 500mg QAM/1000mg QPMl Gabapentin [facility] [address]-05 300 MG Orally Three times a day 1 capsule Metoprolol Succinate ER [facility] [address]-12 25 MG Orally Once a day 1 tablet Multi Vitamin Daily [facility] 33316-77528 - Orally Once a day 1 tablet Lisinopril [facility] [address]-49 10 mg TAKE ON E TABLET BY MOUTH ONCE DAILY IN THE MORNING Procedures Procedure Coding System Code Date FLUARIX QUAD P-FREE 3 AND UP .50 2015 CPT-4 16480 Dec 27, 2015 SINGLE IMMUNIZATION ADMIN CPT-4 49005 Nov GLYCATED HEMOGLOBIN TEST CPT-4 40407 Dec 27, 2015 Office Visit, Est Pt., Level 4 CPT-[address] 2015 Vital Signs Date/Time: Dec 27, 2015 Cardiac Monitoring Heart Rate 68 bpm Weight 227.9 lbs Height 75 in BMI 28.48 Index Blood Pressure Diastolic 76 mmHg Blood Pressure Systolic 123 mmHg Results Name Result Date Reference Range Unit Abnormali ty Flag A1C (IN HOUSE) ----A1C IN HOUSE 6.9 20151227 4.3 - 5.6 % ----Previous A1c 6.2 20151227 ----Lot [id number] ----Exp date 20151227 Immunizations Vaccine Administration Date FLUARIX QUAD P-FREE 3 AND UP .50 2015Dec 27, 2015 Summary Purpose [employer] Submission
--- OUTSIDE RECORDS SUMMARY | 2019-06-21 16:36 | XMS REPORT ---
Author Author Nick ABDI Organization [facility] Address [address] [place] [address] Care Team Providers Care Fraud Analyst Name Role Phone ELVIN ABDI Unavailable PROBLEMS Type Condition ICD9-CM Code [id number] Code Onset Dates Condition S tatus SNOMED Code Problem Hypertension I10 Active 3459661 3 Problem Diabetes mellitus E11.9 Active 73 358611 Problem Hyperlipidemia E78.5 Active 52744 004 Problem Left leg claudication I73.9 Active 169459759 Problem CAD (coronary artery disease) I25.10 Active 94389652 Problem Arthritis M19.90 Active 9186281 Problem Hammertoe M20.40 Active 150061491 Problem Impaired circulation I99.9 Active 99020041 Problem DM neuro manif type II E11.49 Active 38851510 Problem Reactive depression F32.9 Active 19283965 Problem Cigarette nicotine dependence with nicotine-induced di sorder F17.219 Active 50938530 ALLERGIES No Information ENCOUNTERS Encounter Location Date Diagnosis [place] [address] [facility] [id number] [address] [place] [id number] Jan, [facility] [address] [facility] [id number] [address] [place] [phone] Oct, [facility] [address] [facility] [id number] [address] [place] [phone] Jul, Elevated blood sugar R73.9 a nd Neck pain M54.2 [facility] [address] [facility] [id number] [address] [place] [id number] 18 Jul, 2017 [facility] [address] [facility] [id number] [address] [place] [id number] 08 Jul, 2017 Onychomycosis B35.1 and DM n euro manif type II E11.49 [facility] [address] [address] Jul, [place] [address] [address] June, Hyperlipidemia E78.5 [place] [address] [address] June, Diabetes mellitus E11.9 ; CA D (coronary artery disease) I25.10 ; Arthritis M19.90 and Hyperlipidemia E78.5 [place] [address] [address] June, [place] [address] [address] Apr, Onychomycosis B35.1 ; DM chuck ro manif type II E11.49 and Hammertoe M20.40 [place] [address] [address] Apr, Diabetes mellitus E11.9 and Hypertension I10 [place] [address] [address] Mar, Hypertension I10 and Diabete s mellitus E11.9 [place] [address] [address] Mar, Hypertension I10 and Diabete s mellitus E11.9 [place] [address] [address] Jan, Onychomycosis B35.1 and DM n euro manif type II E11.49 [place] [address] [address] Dec, [place] [address] [address] Dec, [place] [address] [address] Dec, Hypertension I10 and Diabete s mellitus E11.9 [place] [id number] [place] [address] Oct, Encounter for immunization Z 23 ; Diabetes mellitus E11.9 ; Hypertension I10 and Cigarette nicotine dependence with nicotine-induced disorder F17.219 [place] [address] [place] [id number] [address] [place] [address] Oct, Diabetes mellitus E11.9 [place] [address] [address] Oct, Onychomycosis B35.1 ; DM chuck ro manif type II E11.49 and Hammertoe M20.[address] [address] Jul, Diabetes mellitus E11.9 [place] [address] [address] Jul, Onychomycosis B35.1 ; Hammer toe M20.40 and DM neuro manif type II E11.49 [place] [id number] [place] [address] May, Diabetes mellitus E11.[address] [address] May, Diabetes mellitus E11.9 [place] [address] [address] Nov, Diabetes mellitus E11.9 ; Hy pertension I10 ; Reactive depression F32.9 and Encounter for immunization Z23 [place] [id number] [place] [address] Oct, Ulcer of other part of foot L97.509 [place] [id number] [place] [address] Sep, Onychomycosis B35.1 ; Ulcer of heel, left, with unspecified severity L97.429 and DM neuro manif type II E11.49 [place] [id number] [address] [place] [address] Sep, [place] [address] [facility] [id number] [address] [place] [address] Sep, Ulcer of heel, left, with un specified severity L97.429 [place] [address] [facility] [id number] [address] [place] [address] Aug, Onychomycosis B35.1 ; Ulcer of heel, left, with unspecified severity L97.429 and DM neuro manif type II E11.49 [place] [address] [facility] [id number] [address] [place] [address] Jul, Diabetes mellitus E11.9 ; Hy pertension I10 ; Cigarette nicotine dependence with nicotine-induced disorder F17.219 and CAD (coronary artery disease) I25.10 [place] [id number] [place] [address] Jul, Left leg claudication I73.9 ; Right leg claudication I73.9 ; CAD (coronary artery disease) I25.10 ; Hypertension I10 and Hyperlipidemia E78.5 [place] [address] [facility] [id number] [address] [place] [address] Jul, Ulcer of heel, left, with un specified severity L97.429 and DM neuro manif type II E11.49 [place] [address] [facility] [id number] [address] [place] [address] June, Ulcer of heel, left, with un specified severity L97.429 and Ulcer of other part of foot L97.509 [place] [address] [facility] [id number] [address] [place] [address] June, Ulcer of heel, left, with un specified severity L97.429 and Ulcer of foot, left, with unspecified severity L97.529 [place] [address] [facility] [id number] [address] [place] [address] May, [place] [address] [place] [id number] [address] [place] [address] May, [place] [address] [facility] [id number] [address] [place] [address] Apr, DM neuro manif type II E11.4 9 ; Hypertension I10 and Sleep apnea in adult G47.33 [place] [address] [facility] [id number] [address] [place] [address] Apr, [place] [address] [place] [id number] [address] [place] [address] Apr, Ulcer of foot L97.509 and DM neuro manif type II E11.49 [place] [address] [facility] [id number] [address] [place] [address] Apr, Ulcer of other part of foot L97.509 and DM neuro manif type II E11.49 [place] [address] [place] [id number] [address] [place] [address] Apr, Onychomycosis B35.1 ; Ingrow n toenail L60.0 ; Impaired circulation I99.9 and DM neuro manif type II E11.49 [place] [address] [place] [id number] [address] [place] [address] Mar, Ulcer of other part of foot L97.509 ; Onychomycosis B35.1 and Diabetes mellitus E11.9 [place] [address] [place] [id number] [address] [place] [address] Dec, Encounter for immunization Z 23 ; Hypertension I10 and Diabetes mellitus E11.9 [place] [address] [place] [address] Dec, [address] [address] Dec, CAD (coronary artery disease ) I25.10 ; Hypertension I10 ; Left leg claudication I73.9 and Hyperlipidemia E78.5 [place] [address] [place] [id number] [address] [place] [id number] 09 Nov, 2014 Onychomycosis B35.1 and Vin ertoe M20.40 [facility] [address] [id number] [address] [place] [address] Sep, Coronary atherosclerosis of unspecified type of vessel, nondalton or graft 414.00 [facility] [address] [id number] [address] [place] [address] Sep, Coronary atherosclerosis of unspecified type of vessel, nondalton or graft 414.00 and Diabetes 250.00 [facility] [address] [id number] [address] [place] [address] May, [facility] [address] [id number] [address] [place] [address] May, [facility] [address] [id number] [address] [place] [address] Apr, [facility] [address] [id number] [address] [place] [address] Apr, [facility] [address] [id number] [address] [place] [address] Apr, [facility] [address] [id number] [address] [place] [phone] Apr, [facility] [address] [id number] [address] [place] [address] Mar, [facility] [address] [id number] [address] [place] [phone] Mar, [facility] [address] [id number] [address] [place] [address] Jan, [facility] [address] [id number] [address] [place] [address] Jan, [facility] [address] [id number] [address] [place] [phone] Jan, [facility] [address] [id number] [address] [place] [address] Jan, [facility] [address] [id number] [address] [place] [address] Jan, [facility] [address] [id number] [address] [place] [address], [place] [address] Jan, [facility] [address] [id number] [address] [place] [address], [place] [address] Jan, [facility] [address] [id number] [address] [place] [address], [place] [address] Jan, [facility] [address] [id number] [address] [place] [address], [place] [address] Jan, [facility] [address] [id number] [address] [place] [address], [place] [address] Jan, [facility] [address] [id number] [address] [place] [address], [place] [address] Jan, [facility] [address] [id number] [address] [place] [address], [place] [address] Nov, [facility] [address] [id number] [address] [place] [address], [place] [address] Nov, [facility] [address] [id number] [address] [place] [address], [place] [address] Nov, [facility] [address] [id number] [address] [place] [address], [place] [address] Nov, [facility] [address] [id number] [address] [place] [address], [place] [address] Nov, [facility] [address] [id number] [address] [place] [address] Nov, [facility] [address] [id number] [address] [place] [address], [place] [address] Oct, [facility] [address] [id number] [address] [place] [address], [place] [address] Oct, [facility] [address] [id number] [address] [place] [address], [place] [address] Oct, [facility] [address] [id number] [facility] [place] [address] Oct, [facility] [address] [id number] [facility] [place] [address] Oct, [facility] [address] [id number] [address] [place] [address], [place] [address] Oct, [facility] [address] [id number] [address] [place] [address], [place] [address] Sep, [facility] [address] [id number] [address] [place] [address], [place] [address] Sep, [facility] [address] [id number] [address] [place] [address], [place] [address] Sep, [facility] [address] [id number] [address] [place] [address], [place] [address] Sep, [facility] [address] [id number] [address] [place] [address], [place] [address] Sep, [facility] [address] [id number] [address] [place] [address], [place] [address] Sep, [facility] [address] [id number] [address] [place] [address], [place] [address] Aug, [facility] [address] [id number] [address] [place] [address], [place] [address] Aug, [facility] [address] [id number] [address] [place] [address], [place] [address] Aug, [facility] [address] [id number] [address] [place] [address], [place] [address] Aug, [facility] [address] [id number] [address] [place] [address], [place] [address] Aug, [facility] [address] [id number] [address] [place] [address], [place] [address] Aug, [facility] [address] [id number] [address] [place] [address], [place] [address] Jul, [facility] [address] [id number] [address] [place] [address], [place] [address] Jul, [facility] [address] [id number] [address] [place] [address], [place] [address] Jul, [facility] [address] [id number] [address] [place] [address], [place] [address] Jul, [facility] [address] [id number] [address] [place] [address], [place] [address] June, [facility] [address] [id number] [address] [place] [address], [place] [address] June, [facility] [address] [id number] [address] [place] [address], [place] [address] June, [facility] [address] [id number] [address] [place] [address], [place] [address] June, [facility] [address] [id number] [address] [place] [address], [place] [address] May, [facility] [address] [id number] [address] [place] [address], [place] [address] May, [facility] [address] [id number] [address] [place] [address], [place] [address] May, [facility] [address] [id number] [address] [place] [address], [place] [address] May, [facility] [address] [id number] [address] [place] [address], [place] [address] May, [facility] [address] [id number] [address] [place] [address], [place] [address] May, [facility] [address] [id number] [address] [place] [address], [place] [address] Apr, [facility] [address] [id number] [address] [place] [address], [place] [address] Apr, [facility] [address] [id number] [address] [place] [address] Apr, [facility] [address] [id number] [address] [place] [address], [place] [address] Apr, 2013 [facility] [address] [id number] [address] [place] [address], [place] [address] Apr, 2013 [facility] [address] [id number] [address] [place] [address], [place] [address] Apr, 2013 [facility] [address] [id number] [address] [place] [address], [place] [address] Apr, [facility] [address] [id number] [address] [place] [address], [place] [address] Jan, [facility] [address] [id number] [address] [place] [address], [place] [address] Jan, [facility] [address] [id number] [address] [place] [address], [place] [address] Jan, [facility] [address] [id number] [address] [place] [address], [place] [address] Jan, [facility] [address] [id number] [address] [place] [address], [place] [address] Jan, [facility] [address] [id number] [address] [place] [address], [place] [address] Jan, [facility] [address] [id number] [address] [place] [address], [place] [address] 15 Dec, 2012 [facility] [address] [id number] [address] [place] [phone] Dec, [facility] [address] [id number] [address] [place] [phone] Dec, [facility] [address] [id number] [address] [place] [id number] Dec, [facility] [address] [id number] [address] [place] [phone] Dec, [facility] [address] [id number] [address] [place] [address], [place] [address] Dec, [facility] [address] [id number] [address] [place] [address], [place] [address] Nov, [facility] [address] [id number] [address] [place] [address], [place] [address] Oct, [facility] [address] [id number] [address] [place] [address], [place] [address] Oct, [facility] [address] [id number] [address] [place] [address], [place] [address] Aug, [facility] [address] [id number] [address] [place] [address], [place] [address] Aug, [facility] [address] [id number] [address] [place] [address], [place] [address] Jul, [facility] [address] [id number] [address] [place] [address], [place] [address] June, [facility] [address] [id number] [address] [place] [address], [place] [address] Apr, [facility] [address] [id number] [address] [place] [address], [place] [address] Apr, [facility] [address] [id number] [address] [place] [address], [place] [address] Apr, [facility] [address] [id number] [address] [place] [address], [place] [address] Apr, [facility] [address] [id number] [address] [place] [address], [place] [address] Mar, [facility] [address] [id number] [address] [place] [address], [place] [address] Jan, [facility] [address] [id number] [address] [place] [address], [place] [address] Jan, [facility] [address] [id number] [address] [place] [id number] 13 Jan, 2012 [facility] [address] [id number] [address] [place] [address], [place] [address] 13 Jan, 2012 [facility] [address] [id number] [address] [place] [address], [place] [address] 12 Jan, 2012 [facility] [address] [id number] [address] [place] [address], [place] [address] 12 Jan, 2012 [facility] [address] [id number] [address] [place] [address], [place] [address] 12 Jan, 2012 [facility] [address] [id number] [address] [place] [address], [place] [address] 12 Jan, 2012 [facility] [address] [id number] [address] [place] [address], [place] [address] 16 Dec, 2011 [facility] [address] [id number] [address] [place] [address], [place] [address] 16 Dec, 2011 [facility] [address] [id number] [address] [place] [address], [place] [address] 16 Dec, 2011 [facility] [address] [id number] [address] [place] [address], [place] [address] 16 Dec, 2011 [facility] [address] [id number] [address] [place] [address], [place] [address] 17 Nov, 2011 [facility] [address] [id number] [address] [place] [address], [place] [address] 24 Oct, 2011 [facility] [address] [id number] [address] [place] [id number] 14 Aug, 2011 [facility] [address] [id number] [address] [place] [address], [place] [id number] 14 Aug, 2011 [facility] [address] [id number] [address] [place] [phone] 14 Aug, 2011 [facility] [address] [id number] [address] [place] [address], [place] [id number] 13 Aug, 2011 [facility] [address] [id number] [address] [place] [phone] Jul, [facility] [address] [id number] [address] [place] [phone] Apr, [facility] [address] [id number] [address] [place] [phone] Apr, [facility] [address] [id number] [address] [place] [phone] Apr, [facility] [address] [id number] [address] [place] [phone] Mar, [facility] [address] [id number] [address] [place] [id number] Mar, [facility] [address] [id number] [address] [place] [phone] Dec, [facility] [address] [id number] [address] [place] [phone] Dec, [facility] [address] [id number] [address] [place] [id number] Dec, IMMUNIZATIONS No Known Immunizations SOCIAL HISTORY Never Assessed REASON FOR VISIT Repository Medication PLAN OF CARE VITAL SIGNS MEDICATIONS Medication Instructions Dosage Frequency Start Date End Date Duration S tatus Nexium 40 MG TAKE ONE CAPSULE BY MOUTH ONCE DAILY 30 Active Zoloft 50 mg Orally Once a [...] capsule 8h Active Naproxen 500 mg Orally 2 times a day 1 tablet 12h Active Aspir-Low 81 MG Orally Once a day 1 tablet 24h Active MetFORMIN HCl ER 500 mg Orally twice a day 500mg QAM/1000mg QPMl 12h Active Multi Vitamin Daily - Orally Once [...]
--- OUTSIDE RECORDS SUMMARY | 2019-06-21 16:36 | XMS REPORT ---
Author Author Nick ABDI Organization [facility] [place] Address [address] [place] [address] Care Team Providers Care Marketing Project Coordinator Name Role Phone ELVIN ABDI Unavailable PROBLEMS Type Condition ICD9-CM Code ALS67-RP Code Onset Dates Condition S tatus SNOMED Code Problem Hypertension I10 Active 5884028 3 Problem Diabetes mellitus E11.9 Active 73 655997 Problem Hyperlipidemia E78.5 Active 01887 004 Problem Left leg claudication I73.9 Active 102623489 Problem CAD (coronary artery disease) I25.10 Active 56678360 Problem Arthritis M19.90 Active 3287582 Problem Hammertoe M20.40 Active 885473217 Problem Impaired circulation I99.9 Active 40167924 Problem DM neuro manif type II E11.49 Active 65298900 Problem Reactive depression F32.9 Active 07676960 Problem Cigarette nicotine dependence with nicotine-induced di sorder F17.219 Active [id number] ALLERGIES No Information ENCOUNTERS Encounter Location Date Diagnosis [facility] [place] [address] [facility] [id number] [address] [place] [address] Jul, [facility] [place] [address] [facility] [id number] [address] [place] [address] Jul, [facility] [place] [address] [facility] [id number] [address] [place] [address] June, Hyperlipidemia E78.5 [facility] [place] [address] [facility] [id number] [address] [place] [address] June, Diabetes mellitus E11.9 ; CA D (coronary artery disease) I25.10 ; Arthritis M19.90 and Hyperlipidemia E78.5 [facility] [place] [address] [facility] [id number] [address] [place] [address] June, [facility] [place] [address] [address] Apr, Onychomycosis B35.1 ; DM chuck ro manif type II E11.49 and Hammertoe M20.40 [place] [address] [address] Apr, Diabetes mellitus E11.9 and Hypertension I10 [place] [address] [address] Mar, Hypertension I10 and Diabete s mellitus E11.9 [place] [address] [address] Mar, Hypertension I10 and Diabete s mellitus E11.9 [place] [address] [address] Jan, Onychomycosis B35.1 and DM n euro manif type II E11.49 [place] [address] [address] Dec, [place] [address] [address] Dec, [place] [address] [address] Dec, Hypertension I10 and Diabete s mellitus E11.9 [place] [address] [address] Oct, Encounter for immunization Z 23 ; Diabetes mellitus E11.9 ; Hypertension I10 and Cigarette nicotine dependence with nicotine-induced disorder F17.219 [place] [address] [address] Oct, Diabetes mellitus E11.9 [place] [address] [address] Oct, Onychomycosis B35.1 ; DM chuck ro manif type II E11.49 and Hammertoe M20.40 [place] [address] [place] [address] Jul, Diabetes mellitus E11.9 [place] [address] [facility] [id number] [address] [place] [address] Jul, Onychomycosis B35.1 ; Hammer toe M20.40 and DM neuro manif type II E11.49 [place] [address] [facility] [id number] [address] [place] [address] May, Diabetes mellitus E11.9 [place] [address] [facility] [id number] [address] [place] [address] May, Diabetes mellitus E11.9 [place] [address] [place] [id number] [place] [address] Nov, Diabetes mellitus E11.9 ; Hy pertension I10 ; Reactive depression F32.9 and Encounter for immunization Z23 [place] [address] [address] [place] [id number] [address] [place] [address] Oct, Ulcer of other part of foot L97.509 [place] [address] [facility] [id number] [address] [place] [address] Sep, Onychomycosis B35.1 ; Ulcer of heel, left, with unspecified severity L97.429 and DM neuro manif type II E11.49 [place] [address] [facility] [id number] [address] [place] [address] Sep, [place] [address] [facility] [id number] [address] [place] [address] Sep, Ulcer of heel, left, with un specified severity L97.429 [place] [address] [facility] [id number] [address] [place] [address] Aug, Onychomycosis B35.1 ; Ulcer of heel, left, with unspecified severity L97.429 and DM neuro manif type II E11.49 [place] [address] [facility] [id number] [address] [place] [address] Jul, Diabetes mellitus E11.9 ; Hy pertension I10 ; Cigarette nicotine dependence with nicotine-induced disorder F17.219 and CAD (coronary artery disease) I25.10 [place] [address] [facility] [id number] [address] [place] [address] Jul, Left leg claudication I73.9 ; Right leg claudication I73.9 ; CAD (coronary artery disease) I25.10 ; Hypertension I10 and Hyperlipidemia E78.5 [place] [address] [facility] [id number] [address] [place] [address] Jul, Ulcer of heel, left, with un specified severity L97.429 and DM neuro manif type II E11.49 [place] [address] [facility] [id number] [address] [place] [address] June, Ulcer of heel, left, with un specified severity L97.429 and Ulcer of other part of foot L97.509 [place] [address] [address] [place] [id number] [address] [place] [address] June, Ulcer of heel, left, with un specified severity L97.429 and Ulcer of foot, left, with unspecified severity L97.529 [place] [address] [facility] [id number] [address] [place] [address] May, [place] [address] [facility] [id number] [address] [place] [address] May, [place] [address] [facility] [id number] [address] [place] [address] Apr, DM neuro manif type II E11.4 9 ; Hypertension I10 and Sleep apnea in adult G47.33 [facility] [place] [address] [facility] [id number] [address] [place] [address] Apr, [place] [address] [facility] [id number] [address] [place] [address] Apr, Ulcer of foot L97.509 and DM neuro manif type II E11.49 [place] [address] [facility] [id number] [address] [place] [address] Apr, Ulcer of other part of foot L97.509 and DM neuro manif type II E11.[address] [address] 12 Apr, 2015 Onychomycosis B35.1 ; Ingrow n toenail L60.0 ; Impaired circulation I99.9 and DM neuro manif type II E11.[address] [address] Mar, Ulcer of other part of foot L97.509 ; Onychomycosis B35.1 and Diabetes mellitus E11.[address] [address] Dec, Encounter for immunization Z 23 ; Hypertension I10 and Diabetes mellitus E11.[address] [address] Dec, [address] [address] Dec, CAD (coronary artery disease ) I25.10 ; Hypertension I10 ; Left leg claudication I73.9 and Hyperlipidemia E78.[address] [address] Nov, Onychomycosis B35.1 and Vin ertoe M20.[address] [address] Sep, Coronary atherosclerosis of unspecified type of vessel, [place] or graft 414.00 [place] [address] [address] Sep, Coronary atherosclerosis of unspecified type of vessel, [place] or graft 414.00 and Diabetes 250.00 [place] [address] [place] [id number] [place] [address] 14 May, 2014 [place] [address] [address] May, [facility] [address] [id number] [address] [place] [address], [place] [address] Apr, [facility] [address] [id number] [address] [place] [address], [place] [address] Apr, [facility] [address] [id number] [address] [place] [address], [place] [address] Apr, [facility] [address] [id number] [address] [place] [address], [place] [address] Apr, [facility] [address] [id number] [address] [place] [address], [place] [address] Mar, [facility] [address] [id number] [address] [place] [address], [place] [address] Mar, [facility] [address] [id number] [address] [place] [address], [place] [address] Jan, [facility] [address] [id number] [address] [place] [address], [place] [address] Jan, [facility] [address] [id number] [address] [place] [address], [place] [address] Jan, [facility] [address] [id number] [address] [place] [address], [place] [address] Jan, [facility] [address] [id number] [address] [place] [address], [place] [address] Jan, [facility] [address] [id number] [address] [place] [address], [place] [address] Jan, [facility] [address] [id number] [address] [place] [address], [place] [address] Jan, [facility] [address] [id number] [address] [place] [address], [place] [address] Jan, [facility] [address] [id number] [address] [place] [address], [place] [address] Jan, [facility] [address] [id number] [address] [place] [address], [place] [address] Jan, [facility] [address] [id number] [address] [place] [address], [place] [address] Jan, [facility] [address] [id number] [address] [place] [address], [place] [address] Nov, [facility] [address] [id number] [address] [place] [address], [place] [address] Nov, [facility] [address] [id number] [address] [place] [address], [place] [address] Nov, [facility] [address] [id number] [address] [place] [address], [place] [address] Nov, [facility] [address] [id number] [address] [place] [address], [place] [address] Nov, [facility] [address] [id number] [address] [place] [address], [place] [address] Nov, [facility] [address] [id number] [address] [place] [address], [place] [address] Oct, [facility] [address] [id number] [address] [place] [address], [place] [address] Oct, [facility] [address] [id number] [address] [place] [address], [place] [address] Oct, [facility] [address] [id number] [address] [place] [address], [place] [address] Oct, [facility] [address] [id number] [address] [place] [address] 05 Oct, 2013 [facility] [address] [id number] [address] [place] [address], [place] [address] Oct, [facility] [address] [id number] [address] [place] [address], [place] [address] Sep, [facility] [address] [id number] [address] [place] [address], [place] [address] Sep, [facility] [address] [id number] [address] [place] [address], [place] [address] Sep, [facility] [address] [id number] [address] [place] [address], [place] [address] Sep, [facility] [address] [id number] [address] [place] [address], [place] [address] Sep, [facility] [address] [id number] [address] [place] [address], [place] [address] Sep, [facility] [address] [id number] [address] [place] [address], [place] [address] Aug, [facility] [address] [id number] [address] [place] [address], [place] [address] Aug, [facility] [address] [id number] [address] [place] [address], [place] [address] Aug, [facility] [address] [id number] [address] [place] [address], [place] [address] Aug, [facility] [address] [id number] [address] [place] [address], [place] [address] Aug, [facility] [address] [id number] [address] [place] [address], [place] [address] Aug, [facility] [address] [id number] [address] [place] [address], [place] [address] Jul, [facility] [address] [id number] [address] [place] [address], [place] [address] Jul, [facility] [address] [id number] [address] [place] [address], [place] [address] Jul, [facility] [address] [id number] [address] [place] [address], [place] [address] Jul, [facility] [address] [id number] [address] [place] [address], [place] [address] June, [facility] [address] [id number] [address] [place] [address], [place] [address] June, [facility] [address] [id number] [address] [place] [address], [place] [address] June, [facility] [address] [id number] [address] [place] [address], [place] [address] June, [facility] [address] [id number] [address] [place] [address], [place] [address] May, [facility] [address] [id number] [address] [place] [address], [place] [address] May, [facility] [address] [id number] [address] [place] [address], [place] [address] May, [facility] [address] [id number] [address] [place] [address], [place] [address] May, [facility] [address] [id number] [address] [place] [address], [place] [address] May, [facility] [address] [id number] [address] [place] [address], [place] [address] May, [facility] [address] [id number] [address] [place] [address], [place] [address] Apr, [facility] [address] [id number] [address] [place] [address], [place] [address] Apr, [facility] [address] [id number] [address] [place] [address], [place] [address] Apr, [facility] [address] [id number] [address] [place] [address], [place] [address] Apr, [facility] [address] [id number] [address] [place] [address], [place] [address] Apr, [facility] [address] [id number] [address] [place] [address], [place] [address] Apr, [facility] [address] [id number] [address] [place] [address], [place] [address] Apr, [facility] [address] [id number] [address] [place] [address], [place] [address] Jan, [facility] [address] [id number] [address] [place] [address], [place] [address] Jan, [facility] [address] [id number] [address] [place] [address], [place] [address] Jan, [facility] [address] [id number] [address] [place] [address], [place] [address] Jan, [facility] [address] [id number] [address] [place] [address], [place] [address] Jan, [facility] [address] [id number] [address] [place] [address], [place] [address] Jan, [facility] [address] [id number] [address] [place] [address], [place] [address] Dec, [facility] [address] [id number] [address] [place] [address], [place] [address] Dec, [facility] [address] [id number] [address] [place] [address], [place] [address] Dec, [facility] [address] [id number] [address] [place] [address], [place] [address] Dec, [facility] [address] [id number] [address] [place] [address], [place] [address] Dec, [facility] [address] [id number] [address] [place] [address], [place] [address] Dec, [facility] [address] [id number] [address] [place] [address] Nov, [facility] [address] [id number] [address] [place] [address], [place] [address] Oct, [facility] [address] [id number] [address] [place] [address], [place] [address] Oct, [facility] [address] [id number] [address] [place] [address] Aug, [facility] [address] [id number] [address] [place] [address], [place] [address] Aug, [facility] [address] [id number] [address] [place] [address], [place] [address] Jul, [facility] [address] [id number] [address] [place] [address], [place] [address] June, [facility] [address] [id number] [address] [place] [address], [place] [address] Apr, [facility] [address] [id number] [address] [place] [address], [place] [address] Apr, [facility] [address] [id number] [address] [place] [address], [place] [address] Apr, [facility] [address] [id number] [address] [place] [address], [place] [address] Apr, [facility] [address] [id number] [address] [place] [address], [place] [address] Mar, [facility] [address] [id number] [address] [place] [address], [place] [address] Jan, [facility] [address] [id number] [address] [place] [address], [place] [address] Jan, [facility] [address] [id number] [address] [place] [address], [place] [address] Jan, [facility] [address] [id number] [address] [place] [address], [place] [address] Jan, [facility] [address] [id number] [address] [place] [address], [place] [address] Jan, [facility] [address] [id number] [address] [place] [address], [place] [address] Jan, [facility] [address] [id number] [address] [place] [address], [place] [address] Jan, [facility] [address] [id number] [address] [place] [address] 12 Jan, 2012 [facility] [address] [id number] [address] [place] [address], [place] [address] 16 Dec, 2011 [facility] [address] [id number] [address] [place] [address], [place] [address] 16 Dec, 2011 [facility] [address] [id number] [address] [place] [address], [place] [address] 16 Dec, 2011 [facility] [address] [id number] [address] [place] [address], [place] [address] 16 Dec, 2011 [facility] [address] [id number] [address] [place] [address], [place] [address] 17 Nov, 2011 [facility] [address] [id number] [address] [place] [address], [place] [address] 24 Oct, 2011 [facility] [address] [id number] [address] [place] [address], [place] [address] 14 Aug, 2011 [facility] [address] [id number] [address] [place] [address], [place] [address] 14 Aug, 2011 [facility] [address] [id number] [address] [place] [address], [place] [address] 14 Aug, 2011 [facility] [address] [id number] [address] [place] [address], [place] [address] Jul, [facility] [address] [id number] [address] [place] [address], [place] [id number] Jul, [facility] [address] [id number] [address] [place] [address], [place] [id number] Apr, [facility] [address] [id number] [address] [place] [address], [place] [id number] 16 Apr, 2011 [facility] [address] [id number] [address] [place] [address], [place] [id number] 16 Apr, 2011 [facility] [address] [id number] [address] [place] [address], [place] [id number] Mar, [facility] [address] [facility] [id number] [address] [place] [id number] Mar, [facility] [place] [address] [facility] [id number] [address] [place] [id number] Dec, [facility] [place], [facility] [address] [facility] [id number] [address] [place] [id number] Dec, [facility], [place], [facility] [address] [facility] [id number] [address] [place] [id number] Dec, IMMUNIZATIONS No Known Immunizations SOCIAL HISTORY Never Assessed REASON FOR VISIT PLAN OF CARE VITAL SIGNS MEDICATIONS Medication Instructions Dosage Frequency Start Date End Date Duration S tatus Naproxen 500 mg Orally 2 times a day 1 tablet 12h Active Zoloft 50 mg Orally Once a day 1 tablet 24h 30 Active RESULTS No Results PROCEDURES No [...]
--- OUTSIDE RECORDS SUMMARY | 2019-06-21 16:37 | XMS REPORT ---
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 Name Role Phone ELVIN ABDI Unavailable PROBLEMS Type Condition ICD9-CM Code [id number] Code Onset Dates Condition S tatus SNOMED Code Problem CAD (coronary artery disease) I25.10 Active 95406247 Problem Hyperlipidemia E78.5 Active 34565 004 Problem Hypertension I10 Active 9603306 3 Problem Left leg claudication I73.9 Active 192781365 Problem Hammertoe M20.40 Active 627891529 Problem Reactive depression F32.9 Active 27344056 Problem DM neuro manif type II E11.49 Active 02626828 Problem Diabetes mellitus E11.9 Active 73 348388 Problem Cigarette nicotine dependence with nicotine-induced di sorder F17.219 Active 64519401 Problem Impaired circulation I99.9 Active 45630607 ALLERGIES No Information ENCOUNTERS Encounter Location Date Diagnosis [place] [address] [facility] [id number] [address] [place] [address] Jul, [place] [address] [place] [id number] [address] [place] [address] Apr, Onychomycosis B35.1 ; DM chuck ro manif type II E11.49 and Hammertoe M20.40 [facility] [address] [facility] [id number] [address] [place] [address] Apr, Diabetes mellitus E11.9 and Hypertension I10 [place] [address] [facility] [id number] [address] [place] [address] Mar, Hypertension I10 and Diabete s mellitus E11.9 [place] [address] [facility] [id number] [address] [place] [address] Mar, Hypertension I10 and Diabete s mellitus E11.9 [facility] [address] [facility] [id number] [address] [place] [address] Jan, Onychomycosis B35.1 and DM n euro manif type II E11.49 [facility] [address] [facility] [id number] [address] [place] [address] Dec, [facility] [address] [facility] [id number] [address] [place] [address] Dec, [facility] [address] [facility] [id number] [address] [place] [address] Dec, Hypertension I10 and Diabete s mellitus E11.9 [place] [address] [address] [place] [id number] [address] [place] [address] Oct, Encounter for immunization Z 23 ; Diabetes mellitus E11.9 ; Hypertension I10 and Cigarette nicotine dependence with nicotine-induced disorder F17.219 [place] [address] [place] [id number] [address] [place] [address] Oct, Diabetes mellitus E11.9 [place] [address] [address] [place] [id number] [address] [place] [address] Oct, Onychomycosis B35.1 ; DM chuck ro manif type II E11.49 and Hammertoe M20.40 [place] [address] [address] [place] [id number] [address] [place] [address] Jul, Diabetes mellitus E11.9 [place] [address] [facility] [id number] [address] [place] [address] Jul, Onychomycosis B35.1 ; Hammer toe M20.40 and DM neuro manif type II E11.49 [facility] [address] [facility] [id number] [address] [place] [address] May, Diabetes mellitus E11.9 [place] [address] [facility] [id number] [address] [place] [address] May, Diabetes mellitus E11.9 [place] [id number] [address] [place] [address] Nov, Diabetes mellitus E11.9 ; Hy pertension I10 ; Reactive depression F32.9 and Encounter for immunization Z23 [place] [address] [address] Oct, Ulcer of other part of foot L97.[address] [address] Sep, Onychomycosis B35.1 ; Ulcer of heel, left, with unspecified severity L97.429 and DM neuro manif type II E11.[address] [address] Sep, [address] [address] Sep, Ulcer of heel, left, with un specified severity L97.[address] [address] Aug, Onychomycosis B35.1 ; Ulcer of heel, left, with unspecified severity L97.429 and DM neuro manif type II E11.[address] [address] Jul, Diabetes mellitus E11.9 ; Hy pertension I10 ; Cigarette nicotine dependence with nicotine-induced disorder F17.219 and CAD (coronary artery disease) I25.[address] [address] Jul, Left leg claudication I73.9 ; Right leg claudication I73.9 ; CAD (coronary artery disease) I25.10 ; Hypertension I10 and Hyperlipidemia E78.[address] [address] Jul, Ulcer of heel, left, with un specified severity L97.429 and DM neuro manif type II E11.[address] [address] June, Ulcer of heel, left, with un specified severity L97.429 and Ulcer of other part of foot L97.509 [place] [id number] [place] [address] June, Ulcer of heel, left, with un specified severity L97.429 and Ulcer of foot, left, with unspecified severity L97.529 [place] [id number] [place] [address] May, [place] [address] [place] [id number] [address] [place] [address] May, [place] [address] [address] Apr, DM neuro manif type II E11.4 9 ; Hypertension I10 and Sleep apnea in adult G47.[address] [address] Apr, [place] [address] [place] [address] Apr, Ulcer of foot L97.509 and DM neuro manif type II E11.49 [place] [address] [place] [id number] [address] [place] [address] Apr, Ulcer of other part of foot L97.509 and DM neuro manif type II E11.49 [place] [address] [place] [id number] [address] [place] [address] Apr, Onychomycosis B35.1 ; Ingrow n toenail L60.0 ; Impaired circulation I99.9 and DM neuro manif type II E11.49 [place] [address] [place] [id number] [address] [place] [address] Mar, Ulcer of other part of foot L97.509 ; Onychomycosis B35.1 and Diabetes mellitus E11.9 [place] [address] [address] [place] [id number] [address] [place] [address] Dec, Encounter for immunization Z 23 ; Hypertension I10 and Diabetes mellitus E11.9 [facility] [address] [facility] [id number] [address] [place] [address] Dec, [facility] [address] [place] [id number] [place] [address] Dec, CAD (coronary artery disease ) I25.10 ; Hypertension I10 ; Left leg claudication I73.9 and Hyperlipidemia E78.5 [facility] [address] [address] Nov, Onychomycosis B35.1 and Vin ertoe M20.40 [facility] [address] [address] Sep, Coronary atherosclerosis of unspecified type of vessel, cheesh-na or graft 414.00 [place] [address] [address] Sep, Coronary atherosclerosis of unspecified type of vessel, cheesh-na or graft 414.00 and Diabetes 250.00 [facility] [address] [place] [id number] [address] [place] [address] May, [facility] [address] [place] [id number] [place] [address] May, [facility] [address] [place] [id number] [address] [place] [address] Apr, [facility] [address] [place] [id number] [address] [place] [address] Apr, [facility] [address] [place] [id number] [address] [place] [address] Apr, [facility] [address] [place] [id number] [address] [place] [address] Apr, [facility] [address] [place] [id number] [address] [place] [address] Mar, [facility] [address] [place] [id number] [address] [place] [address] [place] [address] Mar, [facility] [address] [id number] [address] [place] [address], [place] [address] Jan, [facility] [address] [id number] [address] [place] [address], [place] [address] Jan, [facility] [address] [id number] [address] [place] [address], [place] [address] Jan, [facility] [place] [facility] [address] [id number] [address] [place] [address], [place] [address] Jan, [facility] [address] [id number] [address] [place] [address], [place] [address] Jan, [facility] [address] [id number] [address] [place] [address], [place] [address] Jan, [facility] [address] [id number] [address] [place] [address], [place] [address] Jan, [facility] [address] [id number] [address] [place] [address], [place] [address] Jan, [facility] [address] [id number] [address] [place] [address], [place] [address] Jan, [facility] [address] [id number] [address] [place] [address], [place] [address] Jan, [facility] [place] [facility] [address] [id number] [address] [place] [address], [place] [address] Jan, [facility] [place] [facility] [address] [id number] [address] [place] [address], [place] [address] Nov, [facility] [place] [facility] [address] [id number] [address] [place] [address], [place] [address] Nov, [facility] [place] [facility] [address] [id number] [address] [place] [address], [place] [address] Nov, [facility] [address] [id number] [address] [place] [address], [place] [address] Nov, [facility] [place] [facility] [address] [id number] [address] [place] [address], [place] [address] 15 Nov, 2013 [facility] [place] [facility] [address] [id number] [address] [place] [address], [place] [address] 15 Nov, 2013 [facility] [place] [facility] [address] [id number] [address] [place] [address], [place] [address] 19 Oct, 2013 [facility] [place] [facility] [address] [id number] [address] [place] [address], [place] [address] 19 Oct, 2013 [facility] [place] [facility] [address] [id number] [address] [place] [address], [place] [address] 19 Oct, 2013 [facility] [place] [facility] [address] [id number] [address] [place] [address], [place] [address] 19 Oct, 2013 [facility] [place] [facility] [address] [id number] [address] [place] [address], [place] [address] 05 Oct, 2013 [facility] [place] [facility] [address] [id number] [address] [place] [address], [place] [address] 05 Oct, 2013 [facility] [address] [id number] [address] [place] [address], [place] [address] Sep, [facility] [place] [facility] [address] [id number] [address] [place] [address], [place] [address] Sep, [facility] [place] [facility] [address] [id number] [address] [place] [address], [place] [address] Sep, [facility] [place] [facility] [address] [id number] [address] [place] [address], [place] [address] Sep, [facility] [place] [facility] [address] [id number] [address] [place] [address], [place] [address] Sep, [facility] [place] [facility] [address] [id number] [address] [place] [address], [place] [address] Sep, [facility] [place] [facility] [address] [id number] [address] [place] [address], [place] [address] Aug, [facility] [place] [facility] [address] [id number] [address] [place] [address], [place] [address] Aug, [facility] [address] [id number] [facility] [address] Aug, [facility] [place] [facility] [address] [id number] [address] [place] [address], [place] [address] Aug, [facility] [address] [id number] [address] [place] [address], [place] [address] Aug, [facility] [place] [facility] [address] [id number] [address] [place] [address], [place] [address] Aug, [facility] [address] [id number] [address] [place] [address], [place] [address] Jul, [facility] [address] [id number] [address] [place] [address], [place] [address] Jul, [facility] [address] [id number] [address] [place] [address], [place] [address] Jul, [facility] [address] [id number] [address] [place] [address], [place] [address] Jul, [facility] [address] [id number] [address] [place] [address], [place] [address] June, [facility] [address] [id number] [address] [place] [address], [place] [address] June, [facility] [address] [id number] [address] [place] [address], [place] [address] June, [facility] [place] [facility] [address] [id number] [address] [place] [address], [place] [address] June, [facility] [place] [facility] [address] [id number] [address] [place] [address], [place] [address] May, [facility] [place] [facility] [address] [id number] [address] [place] [address], [place] [address] May, [facility] [place] [facility] [address] [id number] [address] [place] [address], [place] [address] May, [facility] [place] [facility] [address] [id number] [address] [place] [address] May, [facility] [address] [id number] [address] [place] [address], [place] [address] May, [facility] [address] [id number] [address] [place] [address], [place] [address] May, [facility] [address] [id number] [address] [place] [address], [place] [address] Apr, [facility] [address] [id number] [address] [place] [address], [place] [address] Apr, [facility] [address] [id number] [address] [place] [address], [place] [address] Apr, [facility] [address] [id number] [address] [place] [address], [place] [address] Apr, [facility] [address] [id number] [address] [place] [address], [place] [address] Apr, [facility] [address] [id number] [address] [place] [address], [place] [address] Apr, [facility] [address] [id number] [address] [place] [address], [place] [address] Apr, [facility] [address] [id number] [address] [place] [address], [place] [address] Jan, [facility] [address] [id number] [address] [place] [address], [place] [address] Jan, [facility] [address] [id number] [address] [place] [address], [place] [address] Jan, [facility] [address] [id number] [address] [place] [address], [place] [address] Jan, [facility] [address] [id number] [address] [place] [address], [place] [address] Jan, [facility] [address] [id number] [address] [place] [address], [place] [address] Jan, [facility] [address] [id number] [address] [place] [address], [place] [address] Dec, [facility] [address] [id number] [address] [place] [address], [place] [address] Dec, [facility] [address] [id number] [address] [place] [address], [place] [address] Dec, [facility] [address] [id number] [address] [place] [address], [place] [address] Dec, [facility] [address] [id number] [address] [place] [address], [place] [address] Dec, [facility] [address] [id number] [address] [place] [address], [place] [address] Dec, [facility] [address] [id number] [address] [place] [address], [place] [address] Nov, [facility] [address] [id number] [address] [place] [address], [place] [address] Oct, [facility] [address] [id number] [address] [place] [address], [place] [address] Oct, [facility] [address] [id number] [address] [place] [address], [place] [address] Aug, [facility] [address] [id number] [address] [place] [address], [place] [address] Aug, [facility] [address] [id number] [address] [place] [address] Jul, [facility] [place] [facility] [address] [id number] [address] [place] [address], [place] [address] June, [facility] [place] [facility] [address] [id number] [address] [place] [address], [place] [address] Apr, [facility] [place] [facility] [address] [id number] [address] [place] [address], [place] [address] Apr, [facility] [place] [facility] [address] [id number] [address] [place] [address], [place] [address] 08 Apr, 2012 [facility] [address] [id number] [address] [place] [address], [place] [address] 04 Apr, 2012 [facility] [address] [id number] [address] [place] [address], [place] [address] Mar, [facility] [address] [id number] [address] [place] [address], [place] [address] Jan, [facility] [address] [id number] [address] [place] [address], [place] [address] Jan, [facility] [address] [id number] [address] [place] [address], [place] [address] Jan, [facility] [address] [id number] [address] [place] [address], [place] [address] Jan, [facility] [address] [id number] [address] [place] [address], [place] [address] Jan, [facility] [address] [id number] [address] [place] [address], [place] [address] Jan, [facility] [address] [id number] [address] [place] [address], [place] [address] Jan, [facility] [address] [id number] [address] [place] [address], [place] [address] Jan, [facility] [address] [id number] [address] [place] [address], [place] [address] 16 Dec, 2011 [facility] [address] [id number] [address] [place] [address], [place] [address] 16 Dec, 2011 [facility] [address] [id number] [address] [place] [address], [place] [address] Nov, [facility] [address] [id number] [address] [place] [address], [place] [address] 16 Dec, 2011 [facility] [address] [id number] [address] [place] [address], [place] [address] 17 Nov, 2011 [facility] [address] [id number] [address] [place] [address] Sep, [facility] [address] [id number] [address] [place] [address] 14 Aug, 2011 [facility] [address] [id number] [address] [place] [address] 14 Aug, 2011 [facility] [address] [id number] [address] [place] [address] 14 Aug, 2011 [facility] [address] [id number] [address] [place] [address] Jul, [facility] [address] [id number] [address] [place] [address] Jul, [facility] [address] [id number] [address] [place] [address] Apr, [facility] [address] [id number] [address] [place] [address] 16 Apr, 2011 [facility] [address] [id number] [address] [place] [address] Apr, [facility] [address] [id number] [address] [place] [address] Mar, [facility] [address] [id number] [address] [place] [address] Mar, [facility] [address] [id number] [address] [place] [id number] Dec, [facility] [address] [id number] [address] [place] [phone] Dec, [facility] [address] [id number] [address] [place] [phone] Dec, IMMUNIZATIONS No Known Immunizations SOCIAL HISTORY Never Assessed REASON FOR VISIT Refill request PLAN OF CARE VITAL SIGNS MEDICATIONS Medication Instructions Dosage Frequency Start Date End Date Duration S lisa MetFORMIN HCl ER 500 MG Orally twice a day 1 tablet in AM, 2 tablets in PM with meals 12h 30 days Active RESULTS No Results PROCEDURES No [...]
--- OUTSIDE RECORDS SUMMARY | 2019-06-21 16:37 | XMS REPORT | Continuity of Care Document ---
Demographics Preferred Language Unknown Marital Status Unknown Synagogue Affiliation Unknown Race Unknown Ethnic Group Unknown Author Organization Unknown Address Unknown Phone Unavailable Allergies Active Description Code Type Severity Reaction Onset Reported/Identified Relationship to Patient Clinical Status Yes bee stings OA N/A N/A 04/08/2010 Yes NutraSweet Food Allergy N/A N/A 04/08/2010 Yes Penicillins Drug Allergy N/A N/A 04/08/2010 Yes wasp stings OA N/A N/A 04/08/2010 Yes bee stings OA 04/08/2010 Yes NutraSweet Food Allergy 04/08/2010 Yes Penicillins Drug Allergy 04/08/2010 Yes wasp stings OA 04/08/2010 Yes Penicillins [id number] Drug Aller gy Unknown N/A 05/06/2010 Medications There is no data. 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 04/08/[address] Pain Or Discomfort 04/08/2010 250.02 Ashley betes Ii Uncontrolled 04/08/2010 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 04/08/[address] Pain Or Discomfort 04/08/2010 250.02 Ashley betes Ii Uncontrolled 04/08/2010 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 04/08/[address] Pain Or Discomfort 04/08/2010 ELVIN ABDI MD 250.0 2 Diabetes Ii Uncontrolled 04/08/2010 ELVIN ABDI MD 491.9 Chronic Bronchitis 04/08/2010 ELVIN ABDI MD 786.5 0 Chest Pain Or Discomfort 04/08/2010 CHANG ESPITIA APRN, CLAUDIA N 250.02 Diabetes Ii Uncontrolled 04/08/2010 CHANG ESPITIA APRN, CLAUDIA N 491.9 Chronic Bronchitis 04/08/2010 CHANG ESPITIA APRN, CLAUDIA N 786.50 Chest Pain Or Discomfort 04/08/2010 CHANG ESPITIA APRN, CLAUDIA N 250.02 Diabetes Ii Uncontrolled 04/08/2010 CHANG ESPITIA APRN, CLAUDIA N 491.9 Chronic Bronchitis 04/08/2010 CHANG ESPITIA APRN, CLAUDIA N 786.50 Chest Pain Or Discomfort 04/08/2010 VILLELA DO, SIVAKUMAR K 250.02 Diabetes Ii Uncontrolled 04/08/2010 VILLELA DO, SIVAKUMAR K 491.9 Chronic Bronchitis 04/08/2010 VILLELA DO, SIVAKUMAR K 786.50 Chest Pain Or Discomfort 04/08/2010 VILLELA DO, SIVAKUMAR K 250.02 Diabetes Ii Uncontrolled 04/08/2010 VILLELA DO, SIVAKUMAR K 491.9 Chronic Bronchitis 04/08/2010 VILLELA DO, SIVAKUMAR K 786.50 Chest Pain Or Discomfort 04/08/2010 ELVIN ABDI MD 250.0 2 Diabetes Ii Uncontrolled 04/08/2010 ELVIN ABDI MD 491.9 Chronic Bronchitis 04/08/2010 ELVIN ABDI MD 786.5 0 Chest Pain Or Discomfort 04/08/2010 VILLELA DO, SIVAKUMAR K 250.02 Diabetes Ii Uncontrolled 04/08/2010 VILLELA DO, SIVAKUMAR K 491.9 Chronic Bronchitis 04/08/2010 VILLELA DO, SIVAKUMAR K 786.50 Chest Pain Or Discomfort 04/08/2010 ELVIN ABDI MD 250.0 2 Diabetes Ii Uncontrolled 04/08/2010 ELVIN ABDI MD1.9 Chronic Bronchitis 04/08/2010 ELVIN ABDI MD 786.5 0 Chest Pain Or Discomfort 04/08/2010 VILLELA DO, SIVAKUMAR K 250.02 Diabetes Ii Uncontrolled 04/08/2010 VILLELA DO, SIVAKUMAR K 491.9 Chronic Bronchitis 04/08/2010 VILLELA DO, SIVAKUMAR K 786.50 Chest Pain Or Discomfort 04/08/2010 VILLELA DO, SIVAKUMAR K 250.02 Diabetes Ii Uncontrolled 04/08/2010 VILLELA DO, SIVAKUMAR K 491.9 Chronic Bronchitis 04/08/2010 VILLELA DO, SIVAKUMAR K 786.50 Chest Pain Or Discomfort 04/08/2010 ELVIN ABDI MD 250.0 2 Diabetes Ii Uncontrolled 04/08/2010 ELVIN ABDI MD 491.9 Chronic Bronchitis 04/08/2010 ELVIN ABDI MD 786.5 0 Chest Pain Or Discomfort 04/08/2010 VILLELA DO, SIVAKUMAR K 250.02 Diabetes Ii Uncontrolled 04/08/2010 VILLELA DO, SIVAKUMAR K 491.9 Chronic Bronchitis 04/08/2010 VILLELA DO, SIVAKUMAR K 786.50 Chest Pain Or Discomfort 04/08/2010 RENO BOYCE MD 250.02 Diabetes Ii Uncontrolled 04/08/2010 RENO BOYCE MD 491.9 Chronic Bronchitis 04/08/2010 RENO BOYCE MD 786.50 Chest Pain Or Discomfort 04/08/2010 ELVIN ABDI MD 250.0 2 Diabetes Ii Uncontrolled 04/08/2010 ELVIN ABDI MD 491.9 Chronic Bronchitis 04/08/2010 ELVIN ABDI MD 786.5 0 Chest Pain Or Discomfort 04/08/2010 ELVIN ABDI MD 250.0 2 Diabetes Ii Uncontrolled 04/08/2010 ELVIN ABDI MD 491.9 Chronic Bronchitis 04/08/2010 ELVIN ABDI MD 786.5 0 Chest Pain Or Discomfort 04/08/2010 LUZMA DPEDD StewartIN 250.02 Diabetes Ii Uncontrolled 04/08/2010 EDD SEGAL DPMIN 491.9 Chronic Bronchitis 04/08/2010 LUZMA DPPat, LORI 786.50 Chest Pain Or Discomfort 04/08/2010 ELVIN ABDI MD 250.0 2 Diabetes Ii Uncontrolled 04/08/2010 ELVIN ABDI MD 491.9 Chronic Bronchitis 04/08/2010 ELVIN ABDI MD 786.5 0 Chest Pain Or Discomfort 05/06/2010 Ot 250.00 ASHLEY B SOTERO WO COMPL, TYPE II OR UNSPEC TY 05/06/2010 Ot 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 05/06/2010 Ot 414.01 COR ONARY ATHEROSCLEROSIS OF [place] CORON 05/06/2010 Ot 496 CHR AI RWAY OBSTRUCT NEC 05/06/2010 Ot 716.90 ART HROPATHY NOS- UNSPEC 05/06/2010 Ot 724.5 BACK ACHE NOS 05/06/[address] PAIN NOS 05/06/2010 Ot V17.49 FAM [place] HISTORY OF OTHER CARDIOVASCULAR D 05/06/2010 Ot V45.89 POS TSURGICAL STATES NEC 05/06/2010 Ot V58.66 DOROTHY G-TERM (CURRENT) USE OF ASPIRIN 05/06/2010 Ot V58.69 OTH MED,LT,CURRENT USE 05/29/2010 ELVIN ABDI MD 401.1 HYPERTENSION, BENIGN ESSENTIAL 05/29/2010 ELVIN ABDI MD 401.1 HYPERTENSION, BENIGN ESSENTIAL 05/29/2010 401.1 HYPE RTENSION, BENIGN ESSENTIAL 05/29/2010 401.1 HYPE RTENSION, BENIGN ESSENTIAL 05/29/2010 401.1 HYPE RTENSION, BENIGN ESSENTIAL 05/29/2010 ELVIN ABDI MD 401.1 HYPERTENSION, BENIGN ESSENTIAL 05/29/2010 CLAUDIA HUTSON APRN 401.1 HYPERTENSION, BENIGN ESSENTIAL 05/29/2010 CLAUDIA HUTSON APRN N 401.1 HYPERTENSION, BENIGN ESSENTIAL 05/29/2010 SIVAKUMAR VILLELA DO K 401.1 HYPERTENSION, BENIGN ESSENTIAL 05/29/2010 SIVAKUMAR VILLELA DO K 401.1 HYPERTENSION, BENIGN ESSENTIAL 05/29/2010 ELVIN ABDI MD 401.1 HYPERTENSION, BENIGN ESSENTIAL 05/29/2010 SIVAKUMAR VILLELA DO K 401.1 HYPERTENSION, BENIGN ESSENTIAL 05/29/2010 ELVIN ABDI MD 401.1 HYPERTENSION, BENIGN ESSENTIAL 05/29/2010 SIVAKUMAR VILLELA DO K 401.1 HYPERTENSION, BENIGN ESSENTIAL 05/29/2010 IVY VILLELA DOA K 401.1 HYPERTENSION, BENIGN ESSENTIAL 05/29/2010 ELVIN ABDI MD 401.1 HYPERTENSION, BENIGN ESSENTIAL 05/29/2010 IVY VILLELA DOA K 401.1 HYPERTENSION, BENIGN ESSENTIAL 05/29/2010 ARNEL CARPENTER, RENO 401.1 HYPERTENSION, BENIGN ESSENTIAL 05/29/2010 ELVIN ABDI MD 401.1 HYPERTENSION, BENIGN ESSENTIAL 05/29/2010 ELVIN ABDI MD 401.1 HYPERTENSION, BENIGN ESSENTIAL 05/29/2010 LUZMA GUNTER, LORI 401.1 HYPERTENSION, BENIGN ESSENTIAL 05/29/2010 ELVIN ABDI MD 401.1 HYPERTENSION, BENIGN ESSENTIAL 09/25/2010 ELVIN ABDI MD 250.0 0 DIABETES MELLITUS TYPE 2 09/25/2010 ELVIN ABDI MD 272.4 HYPERLIPIDEMIA 09/25/2010 ELVIN ABDI MD 414.0 1 CORONARY ATHEROSCLEROSIS OF [place] CORONARY ARTERY 09/25/2010 ELVIN ABDI MD 250.0 0 DIABETES MELLITUS TYPE 2 09/25/2010 ELVIN ABDI MD 272.4 HYPERLIPIDEMIA 09/25/2010 ELVIN ABDI MD 414.0 1 CORONARY ATHEROSCLEROSIS OF [place] CORONARY ARTERY 09/25/2010 250.00 ASHLEY BETES MELLITUS TYPE 2 09/25/2010 272.4 HYPE RLIPIDEMIA 09/25/2010 414.01 COR ONARY ATHEROSCLEROSIS OF [place] CORONARY ARTERY 09/25/2010 250.00 ASHLEY BETES MELLITUS TYPE 2 09/25/2010 272.4 HYPE RLIPIDEMIA 09/25/2010 414.01 COR ONARY ATHEROSCLEROSIS OF [place] CORONARY ARTERY 09/25/2010 250.00 ASHLEY BETES MELLITUS TYPE 2 09/25/2010 272.4 HYPE RLIPIDEMIA 09/25/2010 414.01 COR ONARY ATHEROSCLEROSIS OF [place] CORONARY ARTERY 09/25/2010 ELVIN ABDI MD 250.0 0 DIABETES MELLITUS TYPE 2 09/25/2010 ELVIN ABDI MD 272.4 HYPERLIPIDEMIA 09/25/2010 ELVIN ABDI MD 414.0 1 CORONARY ATHEROSCLEROSIS OF [place] CORONARY ARTERY 09/25/2010 DOWNING CASHERO SUPERVISOR COUNSELING AND GUIDANCE, CLAUDIA N 250.00 DIABETES MELLITUS TYPE 2 09/25/2010 DOWNING CASHERO SUPERVISOR COUNSELING AND GUIDANCE, CLAUDIA N 272.4 HYPERLIPIDEMIA 09/25/2010 DOWNING CASHERO SUPERVISOR COUNSELING AND GUIDANCE, CLAUDIA N 414.01 CORONARY ATHEROSCLEROSIS OF [place] CORONARY ARTERY 09/25/2010 DOWNING CASHERO SUPERVISOR COUNSELING AND GUIDANCE, CLAUDIA N 250.00 DIABETES MELLITUS TYPE 2 09/25/2010 DOWNING CASHERO SUPERVISOR COUNSELING AND GUIDANCE, CLAUDIA N 272.4 HYPERLIPIDEMIA 09/25/2010 DOWNING CASHERO SUPERVISOR COUNSELING AND GUIDANCE, CLAUDIA N 414.01 CORONARY ATHEROSCLEROSIS OF [place] CORONARY ARTERY 09/25/2010 VILLELA DO, SIVAKUMAR K 250.00 DIABETES MELLITUS TYPE 2 09/25/2010 VILLELA DO, SIVAKUMAR K 272.4 HYPERLIPIDEMIA 09/25/2010 VILLELA DO, SIVAKUMAR K 414.01 CORONARY ATHEROSCLEROSIS OF [place] CORONARY ARTERY 09/25/2010 VILLELA DO, SIVAKUMAR K 250.00 DIABETES MELLITUS TYPE 2 09/25/2010 VILLELA DO, SIVAKUMAR K 272.4 HYPERLIPIDEMIA 09/25/2010 VILLELA DO, SIVAKUMAR K 414.01 CORONARY ATHEROSCLEROSIS OF [place] CORONARY ARTERY 09/25/2010 ELVIN ABDI MD 250.0 0 DIABETES MELLITUS TYPE 2 09/25/2010 ELVIN ABDI MD 272.4 HYPERLIPIDEMIA 09/25/2010 ELVIN ABDI MD 414.0 1 CORONARY ATHEROSCLEROSIS OF [place] CORONARY ARTERY 09/25/2010 VILLELA DO, SIVAKUMAR K 250.00 DIABETES MELLITUS TYPE 2 09/25/2010 VILLELA DO, SIVAKUMAR K 272.4 HYPERLIPIDEMIA 09/25/2010 VILLELA DO, SIVAKUMAR K 414.01 CORONARY ATHEROSCLEROSIS OF [place] CORONARY ARTERY 09/25/2010 ELVIN ABDI MD 250.0 0 DIABETES MELLITUS TYPE 2 09/25/2010 ELVIN ABDI MD 272.4 HYPERLIPIDEMIA 09/25/2010 ELVIN ABDI MD 414.0 1 CORONARY ATHEROSCLEROSIS OF [place] CORONARY ARTERY 09/25/2010 VILLELA DO, SIVAKUMAR K 250.00 DIABETES MELLITUS TYPE 2 09/25/2010 VILLELA DO, SIVAKUMAR K 272.4 HYPERLIPIDEMIA 09/25/2010 VILLELA DO, SIVAKUMAR K 414.01 CORONARY ATHEROSCLEROSIS OF [place] CORONARY ARTERY 09/25/2010 VILLELA DO, SIVAKUMAR K 250.00 DIABETES MELLITUS TYPE 2 09/25/2010 VILLELA DO, SIVAKUMAR K 272.4 HYPERLIPIDEMIA 09/25/2010 VILLELA DO, SIVAKUMAR K 414.01 CORONARY ATHEROSCLEROSIS OF [place] CORONARY ARTERY 09/25/2010 ELVIN ABDI MD 250.0 0 DIABETES MELLITUS TYPE 2 09/25/2010 ELVIN ABDI MD 272.4 HYPERLIPIDEMIA 09/25/2010 ELVIN ABDI MD 414.0 1 CORONARY ATHEROSCLEROSIS OF [place] CORONARY ARTERY 09/25/2010 VILLELA DO, SIVAKUMAR K 250.00 DIABETES MELLITUS TYPE 2 09/25/2010 VILLELA DO, SIVAKMUAR K 272.4 HYPERLIPIDEMIA 09/25/2010 VILLELA DO, SIVAKUMAR K 414.01 CORONARY ATHEROSCLEROSIS OF [place] CORONARY ARTERY 09/25/2010 RENO BOYCE MD 250.00 DIABETES MELLITUS TYPE 2 09/25/2010 RENO BOYCE MD 272.4 HYPERLIPIDEMIA 09/25/2010 RENO BOYCE MD 414.01 CORONARY ATHEROSCLEROSIS OF [place] CORONARY ARTERY 09/25/2010 ELVIN ABDI MD 250.0 0 DIABETES MELLITUS TYPE 2 09/25/2010 ELVIN ABDI MD 272.4 HYPERLIPIDEMIA 09/25/2010 ELVIN ABDI MD 414.0 1 CORONARY ATHEROSCLEROSIS OF [place] CORONARY ARTERY 09/25/2010 ELVIN ABDI MD 250.0 0 DIABETES MELLITUS TYPE 2 09/25/2010 ELVIN ABDI MD 272.4 HYPERLIPIDEMIA 09/25/2010 ELVIN ABDI MD 414.0 1 CORONARY ATHEROSCLEROSIS OF [place] CORONARY ARTERY 09/25/2010 LUZMA DPM, LORI 250.00 DIABETES MELLITUS TYPE 2 09/25/2010 LUZMA DPPat, LORI 272.4 HYPERLIPIDEMIA 09/25/2010 LUZMA GUNTER, LORI 414.01 CORONARY ATHEROSCLEROSIS OF [place] CORONARY ARTERY 09/25/2010 ELVIN ABDI MD 250.0 0 DIABETES MELLITUS TYPE 2 09/25/2010 ELVIN ABDI MD 272.4 HYPERLIPIDEMIA 09/25/2010 ELVIN ABDI MD 414.0 1 CORONARY ATHEROSCLEROSIS OF [place] CORONARY ARTERY 10/25/2010 ELVIN ABDI MD 451.9 Phlebitis And Thrombophlebitis Of Unspecified Site 10/25/2010 ELVIN ABDI MD 451.9 Phlebitis And Thrombophlebitis Of Unspecified Site 10/25/2010 451.9 Phle bitis And Thrombophlebitis Of Unspecified Site 10/25/2010 451.9 Phle bitis And Thrombophlebitis Of Unspecified Site 10/25/2010 451.9 Phle bitis And Thrombophlebitis Of Unspecified Site 10/25/2010 ELVIN ABDI MD 451.9 Phlebitis And Thrombophlebitis Of Unspecified Site 10/25/2010 CLAUDIA HUTSON APRN 451.9 Phlebitis And Thrombophlebitis Of Unspecified Site 10/25/2010 CLAUDIA HUTSON APRN N 451.9 Phlebitis And Thrombophlebitis Of Unspecified Site 10/25/2010 SIVAKUMAR VILLELA DO 451.9 Phlebitis And Thrombophlebitis Of Unspecified Site 10/25/2010 SIVAKUMAR VILLELA DO K 451.9 Phlebitis And Thrombophlebitis Of Unspecified Site 10/25/2010 ELVIN ABDI MD 451.9 Phlebitis And Thrombophlebitis Of Unspecified Site 10/25/2010 IVY VILLELA DOA K 451.9 Phlebitis And Thrombophlebitis Of Unspecified Site 10/25/2010 ELVIN ABDI MD 451.9 Phlebitis And Thrombophlebitis Of Unspecified Site 10/25/2010 VILLELA IVY WARNERA K 451.9 Phlebitis And Thrombophlebitis Of Unspecified Site 10/25/2010 IVY VILLELA DOA K 451.9 Phlebitis And Thrombophlebitis Of Unspecified Site 10/25/2010 ELVIN ABDI MD 451.9 Phlebitis And Thrombophlebitis Of Unspecified Site 10/25/2010 SIVAKUMAR VILLELA DO 451.9 Phlebitis And Thrombophlebitis Of Unspecified Site 10/25/2010 RENO BOYCE MD 451.9 Phlebitis And Thrombophlebitis Of Unspecified Site 10/25/2010 ELVIN ABDI MD 451.9 Phlebitis And Thrombophlebitis Of Unspecified Site 10/25/2010 ELVIN ABDI MD 451.9 Phlebitis And Thrombophlebitis Of Unspecified Site 10/25/2010 LUZMA DPPat, LORI 451.9 Phlebitis And Thrombophlebitis Of Unspecified Site 10/25/2010 ELVIN ABDI MD 451.9 Phlebitis And Thrombophlebitis Of Unspecified Site 01/07/2011 ELVIN ABDI MD 305.1 NONDEPENDENT TOBACCO USE DISORDER 01/07/2011 ELVIN ABDI MD 305.1 NONDEPENDENT TOBACCO USE DISORDER 01/07/2011 305.1 NOND EPENDENT TOBACCO USE DISORDER 01/07/2011 305.1 NOND EPENDENT TOBACCO USE DISORDER 01/07/2011 305.1 NOND EPENDENT TOBACCO USE DISORDER 01/07/2011 ELVIN ABDI MD 305.1 NONDEPENDENT TOBACCO USE DISORDER 01/07/2011 CLAUDIA HUTSON APRN N 305.1 NONDEPENDENT TOBACCO USE DISORDER 01/07/2011 CLAUDIA HUTSON APRN N 305.1 NONDEPENDENT TOBACCO USE DISORDER 01/07/2011 SIVAKUMAR VILLELA DO K 305.1 NONDEPENDENT TOBACCO USE DISORDER 01/07/2011 IVY VILLELA DOA K 305.1 NONDEPENDENT TOBACCO USE DISORDER 01/07/2011 ELVIN ABDI MD 305.1 NONDEPENDENT TOBACCO USE DISORDER 01/07/2011 SIVAKUMAR VILLELA DO K 305.1 NONDEPENDENT TOBACCO USE DISORDER 01/07/2011 ELVIN ABDI MD 305.1 NONDEPENDENT TOBACCO USE DISORDER 01/07/2011 SIVAKUMAR VILLELA DO K 305.1 NONDEPENDENT TOBACCO USE DISORDER 01/07/2011 IVY VILLELA DOA K 305.1 NONDEPENDENT TOBACCO USE DISORDER 01/07/2011 ELVIN ABDI MD 305.1 NONDEPENDENT TOBACCO USE DISORDER 01/07/2011 SIVAKUMAR VILLELA DO 305.1 NONDEPENDENT TOBACCO USE DISORDER 01/07/2011 ARNEL CARPENTER, RENO 305.1 NONDEPENDENT TOBACCO USE DISORDER 01/07/2011 ELVIN ABDI MD 305.1 NONDEPENDENT TOBACCO USE DISORDER 01/07/2011 ELVIN ABDI MD 305.1 NONDEPENDENT TOBACCO USE DISORDER 01/07/2011 LUZMA DPM, LORI 305.1 NONDEPENDENT TOBACCO USE DISORDER 01/07/2011 ELVIN ABDI MD 305.1 NONDEPENDENT TOBACCO USE DISORDER 11/17/2011 ELVIN ABDI MD V04.8 1 FLU DX (3 YRS AND ABOVE, IM) 11/17/2011 ELVIN ABDI MD V04.8 1 FLU DX (3 YRS AND ABOVE, IM) 11/17/2011 V04.81 FLU DX (3 YRS AND ABOVE, IM) 11/17/2011 V04.81 FLU DX (3 YRS AND ABOVE, IM) 11/17/2011 V04.81 FLU DX (3 YRS AND ABOVE, IM) 11/17/2011 ELVIN ABDI MD V04.8 1 FLU DX (3 YRS AND ABOVE, IM) 11/17/2011 CLAUDIA HUTSON APRN N V04.81 FLU DX (3 YRS AND ABOVE, IM) 11/17/2011 CLAUDIA HUTSON APRN V04.81 FLU DX (3 YRS AND ABOVE, IM) 11/17/2011 SIVAKUMAR VILLELA DO K V04.81 FLU DX (3 YRS AND ABOVE, IM) 11/17/2011 SIVAKUMAR VILLELA DO K V04.81 FLU DX (3 YRS AND ABOVE, IM) 11/17/2011 ELVIN ABDI MD V04.8 1 FLU DX (3 YRS AND ABOVE, IM) 11/17/2011 SIVAKUMAR VILLELA DO K V04.81 FLU DX (3 YRS AND ABOVE, IM) 11/17/2011 ELVIN ABDI MD V04.8 1 FLU DX (3 YRS AND ABOVE, IM) 11/17/2011 SIVAKUMAR VILLELA DO V04.81 FLU DX (3 YRS AND ABOVE, IM) 11/17/2011 VILLELA SIVAKUMAR WARNER K V04.81 FLU DX (3 YRS AND ABOVE, IM) 11/17/2011 ELVIN ABDI MD V04.8 1 FLU DX (3 YRS AND ABOVE, IM) 11/17/2011 SIVAKUMAR VILLELA DO V04.81 FLU DX (3 YRS AND ABOVE, IM) 11/17/2011 RENO BOYCE MD V04.81 FLU DX (3 YRS AND ABOVE, IM) 11/17/2011 ELVIN ABDI MD V04.8 1 FLU DX (3 YRS AND ABOVE, IM) 11/17/2011 ELVIN ABDI MD V04.8 1 FLU DX (3 YRS AND ABOVE, IM) 11/17/2011 LUZMA JANLORI Stewart V04.81 FLU DX (3 YRS AND ABOVE, IM) 11/17/2011 ELVIN ABDI MD V04.8 1 FLU DX (3 YRS AND ABOVE, IM) 04/09/2012 ELVIN ABDI MD 302.7 2 PSYCHOSEXUAL DYSFUNCTION WITH INHIBITED SEXUAL EXCITEMENT 04/09/2012 ELVIN ABDI MD 530.1 1 REFLUX ESOPHAGITIS 04/09/2012 ELVIN ABDI MD 780.8 GENERALIZED HYPERHIDROSIS 04/09/2012 302.72 PSY CHOSEXUAL DYSFUNCTION WITH INHIBITED SEXUAL EXCITEMENT 04/09/2012 530.11 REF LUX ESOPHAGITIS 04/09/2012 780.8 GENE RALIZED HYPERHIDROSIS 04/09/2012 302.72 PSY CHOSEXUAL DYSFUNCTION WITH INHIBITED SEXUAL EXCITEMENT 04/09/2012 530.11 REF LUX ESOPHAGITIS 04/09/2012 780.8 GENE RALIZED HYPERHIDROSIS 04/09/2012 302.72 PSY CHOSEXUAL DYSFUNCTION WITH INHIBITED SEXUAL EXCITEMENT 04/09/2012 530.11 REF LUX ESOPHAGITIS 04/09/2012 780.8 GENE RALIZED HYPERHIDROSIS 04/09/2012 ELVIN ABDI MD 302.7 2 PSYCHOSEXUAL DYSFUNCTION WITH INHIBITED SEXUAL EXCITEMENT 04/09/2012 ELVIN ABDI MD 530.1 1 REFLUX ESOPHAGITIS 04/09/2012 ELVIN ABDI MD 780.8 GENERALIZED HYPERHIDROSIS 04/09/2012 CLAUDIA HUTSON APRN N 302.72 PSYCHOSEXUAL DYSFUNCTION WITH INHIBITED SEXUAL EXCITEM ENT 04/09/2012 CLAUDIA HUTSON APRN N 530.11 REFLUX ESOPHAGITIS 04/09/2012 CLAUDIA HUTSON APRN N 780.8 GENERALIZED HYPERHIDROSIS 04/09/2012 CLAUDIA HUTSON APRN N 302.72 PSYCHOSEXUAL DYSFUNCTION WITH INHIBITED SEXUAL EXCITEM ENT 04/09/2012 CLAUDIA HUTSON APRN N 530.11 REFLUX ESOPHAGITIS 04/09/2012 CLAUDIA HUTSON APRN N 780.8 GENERALIZED HYPERHIDROSIS 04/09/2012 VILLELA DO, SIVAKUMAR K 302.72 PSYCHOSEXUAL DYSFUNCTION WITH INHIBITED SEXUAL EXCITEMENT 04/09/2012 VILLELA DO, SIVAKUMAR K 530.11 REFLUX ESOPHAGITIS 04/09/2012 VILLELA DO, SIVAKUMAR K 780.8 GENERALIZED HYPERHIDROSIS 04/09/2012 VILLELA DO, SIVAKUMAR K 302.72 PSYCHOSEXUAL DYSFUNCTION WITH INHIBITED SEXUAL EXCITEMENT 04/09/2012 VILLELA DO, SIVAKUMAR K 530.11 REFLUX ESOPHAGITIS 04/09/2012 VILLELA DO, SIVAKUMAR K 780.8 GENERALIZED HYPERHIDROSIS 04/09/2012 ELVIN ABDI MD 302.7 2 PSYCHOSEXUAL DYSFUNCTION WITH INHIBITED SEXUAL EXCITEMENT 04/09/2012 ELVIN ABDI MD 530.1 1 REFLUX ESOPHAGITIS 04/09/2012 ELVIN ABDI MD 780.8 GENERALIZED HYPERHIDROSIS 04/09/2012 VILLELA DO, SIVAKUMAR K 302.72 PSYCHOSEXUAL DYSFUNCTION WITH INHIBITED SEXUAL EXCITEMENT 04/09/2012 VILLELA DO, SIVAKUMAR K 530.11 REFLUX ESOPHAGITIS 04/09/2012 VILLELA DO, SIVAKUMAR K 780.8 GENERALIZED HYPERHIDROSIS 04/09/2012 ELVIN ABDI MD 302.7 2 PSYCHOSEXUAL DYSFUNCTION WITH INHIBITED SEXUAL EXCITEMENT 04/09/2012 ELVIN ABDI MD 530.1 1 REFLUX ESOPHAGITIS 04/09/2012 ELVIN ABDI MD 780.8 GENERALIZED HYPERHIDROSIS 04/09/2012 VILLELA DO, SIVAKUMAR K 302.72 PSYCHOSEXUAL DYSFUNCTION WITH INHIBITED SEXUAL EXCITEMENT 04/09/2012 VILLELA DO, SIVAKUMAR K 530.11 REFLUX ESOPHAGITIS 04/09/2012 VILLELA DO, SIVAKUMAR K 780.8 GENERALIZED HYPERHIDROSIS 04/09/2012 VILLELA DO, SIVAKUMAR K 302.72 PSYCHOSEXUAL DYSFUNCTION WITH INHIBITED SEXUAL EXCITEMENT 04/09/2012 VILLELA DO, SIVAKUMAR K 530.11 REFLUX ESOPHAGITIS 04/09/2012 VILLELA DO, SIVAKUMAR K 780.8 GENERALIZED HYPERHIDROSIS 04/09/2012 ELVIN ABDI MD 302.7 2 PSYCHOSEXUAL DYSFUNCTION WITH INHIBITED SEXUAL EXCITEMENT 04/09/2012 ELVIN ABDI MD 530.1 1 REFLUX ESOPHAGITIS 04/09/2012 ELVIN ABDI MD 780.8 GENERALIZED HYPERHIDROSIS 04/09/2012 IVY VILLELA DOA K 302.72 PSYCHOSEXUAL DYSFUNCTION WITH INHIBITED SEXUAL EXCITEMENT 04/09/2012 VILLELA DO SIVAKUMAR K 530.11 REFLUX ESOPHAGITIS 04/09/2012 VILLELA DO, SIVAKUMAR K 780.8 GENERALIZED HYPERHIDROSIS 04/09/2012 RENO BOYCE MD 302.72 PSYCHOSEXUAL DYSFUNCTION WITH INHIBITED SEXUAL EXCITEMENT 04/09/2012 RENO BOYCE MD 530.11 REFLUX ESOPHAGITIS 04/09/2012 RENO BOYCE MD 780.8 GENERALIZED HYPERHIDROSIS 04/09/2012 ELVIN ABDI MD 302.7 2 PSYCHOSEXUAL DYSFUNCTION WITH INHIBITED SEXUAL EXCITEMENT 04/09/2012 ELVIN ABDI MD 530.1 1 REFLUX ESOPHAGITIS 04/09/2012 ELVIN ABDI MD 780.8 GENERALIZED HYPERHIDROSIS 04/09/2012 ELVIN ABDI MD 302.7 2 PSYCHOSEXUAL DYSFUNCTION WITH INHIBITED SEXUAL EXCITEMENT 04/09/2012 ELVIN ABDI MD 530.1 1 REFLUX ESOPHAGITIS 04/09/2012 ELVIN ABDI MD 780.8 GENERALIZED HYPERHIDROSIS 04/09/2012 LORI SEGAL DPM 302.72 PSYCHOSEXUAL DYSFUNCTION WITH INHIBITED SEXUAL EXCITEMENT 04/09/2012 LORI SEGAL DPM 530.11 REFLUX ESOPHAGITIS 04/09/2012 LORI SEGAL DPM 780.8 GENERALIZED HYPERHIDROSIS 04/09/2012 ELVIN ABDI MD 302.7 2 PSYCHOSEXUAL DYSFUNCTION WITH INHIBITED SEXUAL EXCITEMENT 04/09/2012 ELVIN ABDI MD 530.1 1 REFLUX ESOPHAGITIS 04/09/2012 ELVIN ABDI MD 780.8 GENERALIZED HYPERHIDROSIS 07/15/2012 784.0 headache 07/15/2012 784.0 headache 07/15/2012 784.0 headache 07/15/2012 ELVIN ABDI MD 784.0 HEADACHE 07/15/2012 CHANG ESPITIA APRN, CLAUDIA N 784.0 HEADACHE 07/15/2012 DEBBIE HUTSON APRNCY N 784.0 HEADACHE 07/15/2012 VILLELA DO, SIVAKUMAR K 784.0 HEADACHE 07/15/2012 VILLELA DO, SIVAKUMAR K 784.0 HEADACHE 07/15/2012 JIN CARPENTER, ELVIN 784.0 HEADACHE 07/15/2012 VILLELA DO, SIVAKUMAR K 784.0 HEADACHE 07/15/2012 JIN CARPENTER, ELVIN 784.0 HEADACHE 07/15/2012 VILLELA DO, SIVAKUMAR K 784.0 HEADACHE 07/15/2012 VILLELA DO, SIVAKUMAR K 784.0 HEADACHE 07/15/2012 JIN CARPENTER, ELVIN 784.0 HEADACHE 07/15/2012 VILLELA DO, SIVAKUMAR K 784.0 HEADACHE 07/15/2012 ARNEL CARPENTER, RENO 784.0 HEADACHE 07/15/2012 JIN CARPENTER, ELVIN 784.0 HEADACHE 07/15/2012 JIN CARPENTER, ELVIN 784.0 HEADACHE 07/15/2012 LUZMA GUNTER, LORI 784.0 HEADACHE 07/15/2012 JIN CARPENTER, ELVIN 784.0 HEADACHE 09/01/2012 414.00 CAD 09/01/2012 ELVIN ABDI MD 414.0 0 CAD 09/01/2012 DEBBIE HUTSON APRNCY N 414.00 CAD 09/01/2012 CLAUDIA HUTSON APRN N 414.00 CAD 09/01/2012 VILLELA DO, SIVAKUMAR K 414.00 CAD 09/01/2012 VILLELA DO, SIVAKUMAR K 414.00 CAD 09/01/2012 ELVIN ABDI MD 414.0 0 CAD 09/01/2012 VILLELA DO, SIVAKUMAR K 414.00 CAD 09/01/2012 ELVIN ADBI MD 414.0 0 CAD 09/01/2012 VILLELA DO, SIVAKUMAR K 414.00 CAD 09/01/2012 VILLELA DO, SIVAKUMAR K 414.00 CAD 09/01/2012 ELVIN ABDI MD 414.0 0 CAD 09/01/2012 VILLELA DO, SIVAKUMAR K 414.00 CAD 09/01/2012 ARNEL CARPENTER, ALI 414.00 CAD 09/01/2012 ELVIN ABDI MD 414.0 0 CAD 09/01/2012 JIN CARPENTER, ELVIN 414.0 0 CAD 09/01/2012 LUZMA GUNTER, LORI 414.00 CAD 09/01/2012 ELVIN ABDI MD 414.0 0 CAD 11/19/2012 ELVIN ABDI MD 327.5 2 SLEEP RELATED LEG CRAMPS 11/19/2012 CLAUDIA HUTSON APRN N 327.52 SLEEP RELATED LEG CRAMPS 11/19/2012 CLAUDIA HUTSON APRN N 327.52 SLEEP RELATED LEG CRAMPS 11/19/2012 VILLELA DO, SIVAKUMAR K 327.52 SLEEP RELATED LEG CRAMPS 11/19/2012 VILLELA DO, SIVAKUMAR K 327.52 SLEEP RELATED LEG CRAMPS 11/19/2012 ELVIN ABDI MD 327.5 2 SLEEP RELATED LEG CRAMPS 11/19/2012 VILLELA DO, SIVAKUMAR K 327.52 SLEEP RELATED LEG CRAMPS 11/19/2012 ELVIN ABDI MD 327.5 2 SLEEP RELATED LEG CRAMPS 11/19/2012 VILLELA DO, SIVAKUMAR K 327.52 SLEEP RELATED LEG CRAMPS 11/19/2012 VILLELA DO, SIVAKUMAR K 327.52 SLEEP RELATED LEG CRAMPS 11/19/2012 ELVIN ABDI MD 327.5 2 SLEEP RELATED LEG CRAMPS 11/19/2012 VILLELA DO, SIVAKUMAR K 327.52 SLEEP RELATED LEG CRAMPS 11/19/2012 ARNEL CARPENTER, RENO 327.52 SLEEP RELATED LEG CRAMPS 11/19/2012 ELVIN ABDI MD 327.5 2 SLEEP RELATED LEG CRAMPS 11/19/2012 ELVIN ABDI MD 327.5 2 SLEEP RELATED LEG CRAMPS 11/19/2012 LORI SEGAL DPM 327.52 SLEEP RELATED LEG CRAMPS 11/19/2012 ELVIN ABDI MD 327.5 2 SLEEP RELATED LEG CRAMPS 01/04/2013 CLAUDIA HUTSON APRN N 681.10 UNSPECIFIED CELLULITIS AND ABSCESS OF TOE 01/04/2013 CLAUDIA HUTSON APRN N 681.10 UNSPECIFIED CELLULITIS AND ABSCESS OF TOE 01/04/2013 VILLELA DO SIVAKUMAR K 681.10 UNSPECIFIED CELLULITIS AND ABSCESS OF TOE 01/04/2013 VILLELA DO SIVAKUMAR K 681.10 UNSPECIFIED CELLULITIS AND ABSCESS OF TOE 01/04/2013 ELVIN ABDI MD 681.1 0 UNSPECIFIED CELLULITIS AND ABSCESS OF TOE 01/04/2013 IVY VILLELA DOA K 681.10 UNSPECIFIED CELLULITIS AND ABSCESS OF TOE 01/04/2013 ELVIN ABDI MD 681.1 0 UNSPECIFIED CELLULITIS AND ABSCESS OF TOE 01/04/2013 VILLELA DO SIVAKUMAR K 681.10 UNSPECIFIED CELLULITIS AND ABSCESS OF TOE 01/04/2013 VILLELA DO SIVAKUMAR K 681.10 UNSPECIFIED CELLULITIS AND ABSCESS OF TOE 01/04/2013 ELVIN ABDI MD 681.1 0 UNSPECIFIED CELLULITIS AND ABSCESS OF TOE 01/04/2013 TIKA WARNER SIVAKUMAR K 681.10 UNSPECIFIED CELLULITIS AND ABSCESS OF TOE 01/04/2013 RENO BOYCE MD 681.10 UNSPECIFIED CELLULITIS AND ABSCESS OF TOE 01/04/2013 ELVIN ABDI MD 681.1 0 UNSPECIFIED CELLULITIS AND ABSCESS OF TOE 01/04/2013 ELVIN ABDI MD 681.1 0 UNSPECIFIED CELLULITIS AND ABSCESS OF TOE 01/04/2013 LORI SEGAL DPM 681.10 UNSPECIFIED CELLULITIS AND ABSCESS OF TOE 01/04/2013 ELVIN ABDI MD 681.1 0 UNSPECIFIED CELLULITIS AND ABSCESS OF TOE 01/11/2013 CLAUDIA HUTSON APRN N 356.9 UNSPECIFIED IDIOPATHIC PERIPHERAL NEUROPATHY 01/11/2013 TIKA WARNER SIVAKUMAR K 356.9 UNSPECIFIED IDIOPATHIC PERIPHERAL NEUROPATHY 01/11/2013 TIKA WARNER SIVAKUMAR K 356.9 UNSPECIFIED IDIOPATHIC PERIPHERAL NEUROPATHY 01/11/2013 ELVIN ABDI MD 356.9 UNSPECIFIED IDIOPATHIC PERIPHERAL NEUROPATHY 01/11/2013 TIKA WARNER SIVAKUMAR K 356.9 UNSPECIFIED IDIOPATHIC PERIPHERAL NEUROPATHY 01/11/2013 ELVIN ABDI MD 356.9 UNSPECIFIED IDIOPATHIC PERIPHERAL NEUROPATHY 01/11/2013 TIKA WARNER SIVAKUMAR K 356.9 UNSPECIFIED IDIOPATHIC PERIPHERAL NEUROPATHY 01/11/2013 TIKA WARNER SIVAKUMAR K 356.9 UNSPECIFIED IDIOPATHIC PERIPHERAL NEUROPATHY 01/11/2013 ELVIN ABDI MD 356.9 UNSPECIFIED IDIOPATHIC PERIPHERAL NEUROPATHY 01/11/2013 TIKA WARNER SIVAKUMAR K 356.9 UNSPECIFIED IDIOPATHIC PERIPHERAL NEUROPATHY 01/11/2013 RENO BOYCE MD 356.9 UNSPECIFIED IDIOPATHIC PERIPHERAL NEUROPATHY 01/11/2013 ELVIN ABDI MD 356.9 UNSPECIFIED IDIOPATHIC PERIPHERAL NEUROPATHY 01/11/2013 ELVIN ABDI MD 356.9 UNSPECIFIED IDIOPATHIC PERIPHERAL NEUROPATHY 01/11/2013 LORI SEGAL DPM 356.9 UNSPECIFIED IDIOPATHIC PERIPHERAL NEUROPATHY 01/11/2013 ELVIN ABDI MD 356.9 UNSPECIFIED IDIOPATHIC PERIPHERAL NEUROPATHY 01/14/2013 VILLELA DO, SIVAKUMAR K 440.20 ASOD 01/14/2013 VILLELA DO, SIVAKUMAR K 682.7 CELLULITIS - FOOT 01/14/2013 VILLELA DO, SIVAKUMAR K 440.20 ASOD 01/14/2013 VILLELA DO, SIVAKUMAR K 682.7 CELLULITIS - FOOT 01/14/2013 ELVIN ABDI MD 440.2 0 ASOD 01/14/2013 ELVIN ABDI MD.7 CELLULITIS - FOOT 01/14/2013 VILLELA DO, SIVAKUMAR K 440.20 ASOD 01/14/2013 VILLELA DO, SIVAKUMAR K 682.7 CELLULITIS - FOOT 01/14/2013 ELVIN ABDI MD 440.2 0 ASOD 01/14/2013 ELVIN ABDI MD.7 CELLULITIS - FOOT 01/14/2013 VILLELA DO, SIVAKUMAR K 440.20 ASOD 01/14/2013 VILLELA DO, SIVAKUMAR K 682.7 CELLULITIS - FOOT 01/14/2013 VILLELA DO, SIVAKUMAR K 440.20 ASOD 01/14/2013 VILLELA DO, SIVAKUMAR K 682.7 CELLULITIS - FOOT 01/14/2013 ELVIN ABDI MD 440.2 0 ASOD 01/14/2013 ELVIN ABDI MD.7 CELLULITIS - FOOT 01/14/2013 VILLELA DO, SIVAKUMAR K 440.20 ASOD 01/14/2013 VILLELA DO, SIVAKUMAR K 682.7 CELLULITIS - FOOT 01/14/2013 ARNEL CARPENTER, RENO 440.20 ASOD 01/14/2013 RENO BOYCE MD 682.7 CELLULITIS - FOOT 01/14/2013 ELVIN ABDI MD 440.2 0 ASOD 01/14/2013 ELVIN ABDI MD.7 CELLULITIS - FOOT 01/14/2013 ELVIN ABDI MD 440.2 0 ASOD 01/14/2013 ELVIN ABDI MD.7 CELLULITIS - FOOT 01/14/2013 LUZMA GUNTER, LORI 440.20 ASOD 01/14/2013 LUZMA GUNTER, LORI 682.7 CELLULITIS - FOOT 01/14/2013 EVLIN ABDI MD 440.2 0 ASOD 01/14/2013 ELVIN ABDI MD.7 CELLULITIS - FOOT 02/15/2013 ELVIN ABDI MD 443.9 PERIPHERAL VASCULAR DISEASE UNSPECIFIED 02/15/2013 VILLELA DO SIVAKUMAR K 443.9 PERIPHERAL VASCULAR DISEASE UNSPECIFIED 02/15/2013 ELVIN ABDI MD 443.9 PERIPHERAL VASCULAR DISEASE UNSPECIFIED 02/15/2013 VILLELA DO SIVAKUMAR K 443.9 PERIPHERAL VASCULAR DISEASE UNSPECIFIED 02/15/2013 VILLELA DO SIVAKUMAR K 443.9 PERIPHERAL VASCULAR DISEASE UNSPECIFIED 02/15/2013 ELVIN ABDI MD 443.9 PERIPHERAL VASCULAR DISEASE UNSPECIFIED 02/15/2013 VILLELA SIVAKUMAR WARNER K 443.9 PERIPHERAL VASCULAR DISEASE UNSPECIFIED 02/15/2013 RENO BOYCE MD 443.9 PERIPHERAL VASCULAR DISEASE UNSPECIFIED 02/15/2013 ELVIN ABDI MD 443.9 PERIPHERAL VASCULAR DISEASE UNSPECIFIED 02/15/2013 ELVIN ABDI MD 443.9 PERIPHERAL VASCULAR DISEASE UNSPECIFIED 02/15/2013 LUZMA DPM, LORI 443.9 PERIPHERAL VASCULAR DISEASE UNSPECIFIED 02/15/2013 ELVIN ABDI MD 443.9 PERIPHERAL VASCULAR DISEASE UNSPECIFIED 05/27/2013 VILLELA DO, SIVAKUMAR K 110.1 ONYCHOMYCOSIS 05/27/2013 VILLELA , SIVAKUMAR K 735.4 HAMMER TOE (ACQUIRED) 05/27/2013 ELVIN ABDI MD 110.1 ONYCHOMYCOSIS 05/27/2013 LEVIN ABDI MD 735.4 HAMMER TOE (ACQUIRED) 05/27/2013 VILLELA DO, SIVAKUMAR K 110.1 ONYCHOMYCOSIS 05/27/2013 VILLELA , SIVAKUMAR K 735.4 HAMMER TOE (ACQUIRED) 05/27/2013 VILLELA DO, SIVAKUMAR K 110.1 ONYCHOMYCOSIS 05/27/2013 VILLELA DO, SIVAKUMAR K 735.4 HAMMER TOE (ACQUIRED) 05/27/2013 ELVIN ABDI MD 110.1 ONYCHOMYCOSIS 05/27/2013 ELVIN ABDI MD5.4 HAMMER TOE (ACQUIRED) 05/27/2013 VILLELA DO, SIVAKUMAR K 110.1 ONYCHOMYCOSIS 05/27/2013 VILLELA DO, SIVAKUMAR K 735.4 HAMMER TOE (ACQUIRED) 05/27/2013 ARNEL CARPENTER, ALI 110.1 ONYCHOMYCOSIS 05/27/2013 RENO BOYCE MD 735.4 HAMMER TOE (ACQUIRED) 05/27/2013 ELVIN ABDI MD 110.1 ONYCHOMYCOSIS 05/27/2013 ELVIN ABDI MD 735.4 HAMMER TOE (ACQUIRED) 05/27/2013 ELVIN ABDI MD 110.1 ONYCHOMYCOSIS 05/27/2013 ELVIN ABDI MD 735.4 HAMMER TOE (ACQUIRED) 05/27/2013 LUZMA GUNTER, LORI 110.1 ONYCHOMYCOSIS 05/27/2013 LUZMA GUNTER, LORI 735.4 HAMMER TOE (ACQUIRED) 05/27/2013 ELVIN ABDI MD 110.1 ONYCHOMYCOSIS 05/27/2013 ELVIN ABDI MD 735.4 HAMMER TOE (ACQUIRED) 07/20/2013 TIKA WARNER SIVAKUMAR K 786.50 CHEST PAIN 07/20/2013 IVY VILLELA DOA K 786.50 CHEST PAIN 07/20/2013 ELVIN ABDI MD 786.5 0 CHEST PAIN 07/20/2013 IVY VILLELA DOA K 786.50 CHEST PAIN 07/20/2013 RENO BOYCE MD 786.50 CHEST PAIN 07/20/2013 ELVIN ABDI MD 786.5 0 CHEST PAIN 07/20/2013 ELVIN ABDI MD 786.5 0 CHEST PAIN 07/20/2013 LUZMA GUNTER, LORI 786.50 CHEST PAIN 07/20/2013 ELVIN ABDI MD 786.5 0 CHEST PAIN 08/19/2013 IVY VILLELA DOA K 110.1 ONYCHOMYCOSIS 08/19/2013 ELVIN ABDI MD 110.1 ONYCHOMYCOSIS 08/19/2013 TIKA WARNER SIVAKUMAR K 110.1 ONYCHOMYCOSIS 08/19/2013 RENO BOYCE MD 110.1 ONYCHOMYCOSIS 08/19/2013 ELVIN ABDI MD 110.1 ONYCHOMYCOSIS 08/19/2013 ELVIN ABDI MD 110.1 ONYCHOMYCOSIS 08/19/2013 LUZMA GUNTER, LORI 110.1 ONYCHOMYCOSIS 08/19/2013 ELVIN ABDI MD 110.1 ONYCHOMYCOSIS 10/19/2013 IVY VILLELA DOA K 443.9 PERIPHERAL VASCULAR DISEASE UNSPECIFIED 10/19/2013 IVY VILLELA DOA K 496 COPD 10/19/2013 ARNEL CARPENTER RENO 443.9 PERIPHERAL VASCULAR DISEASE UNSPECIFIED 10/19/2013 ARNEL CARPENTER, ALI 496 COPD 10/19/2013 JIN CARPENTER, ELVIN 443.9 PERIPHERAL VASCULAR DISEASE UNSPECIFIED 10/19/2013 JIN CARPENTER, ELVIN 496 COPD 10/19/2013 JIN CARPENTER, ELVIN 443.9 PERIPHERAL VASCULAR DISEASE UNSPECIFIED 10/19/2013 JIN CARPENTER, ELVIN 496 COPD 10/19/2013 LUZMA DPM, LORI 443.9 PERIPHERAL VASCULAR DISEASE UNSPECIFIED 10/19/2013 LUZMA DPM, LORI 496 COPD 10/19/2013 JIN CARPENTER, ELVIN 443.9 PERIPHERAL VASCULAR DISEASE UNSPECIFIED 10/19/2013 JIN CARPENTER, ELVIN 496 COPD 12/14/2013 ARNEL CARPENTER, RENO 786.09 DYSPNEA 12/14/2013 ELVIN ABDI MD 786.0 9 DYSPNEA 12/14/2013 ELVIN ABDI MD 786.0 9 DYSPNEA 12/14/2013 LUZMA GUNTER, LORI 786.09 DYSPNEA 12/14/2013 ELVIN ABDI MD 786.0 9 DYSPNEA 12/22/2013 ELVIN ABDI MD V04.8 1 FLU SHOT 12/22/2013 ELVIN ABDI MD V04.8 1 FLU SHOT 12/22/2013 LUZMA DPM, LORI V04.81 FLU SHOT 12/22/2013 ELVIN ABDI MD V04.8 1 FLU SHOT 04/28/2014 LUZMA GUNTER, LORI 110.1 ONYCHOMYCOSIS 04/28/2014 ELVIN ABDI MD 110.1 ONYCHOMYCOSIS 06/21/2014 ELVIN ABDI MD 401.9 HYPERTENSION, UNSPECIFIED ESSENTIAL 06/21/2014 ELVIN ABDI MD 780.7 9 FATIGUE 06/21/2014 ELVIN ABDI MD 786.0 9 DYSPNEA 08/14/2015 ARNEL CARPENTER FACLani, RENO FACP CCDS Ot E11.9 TYPE 2 DIABETES MELLITUS WITHOUT COMPLIC 08/14/2015 ARNEL CARPENTER FACLani, RENO FACP CCDS Ot E78.5 HYPERLIPIDEMIA, UNSPECIFIED 08/14/2015 ARNEL CARPENTER FACLani, ALI FACP CCDS Ot I10 ESSENTIAL (PRIMARY) HYPERTENSION 08/14/2015 ARNEL CARPENTER FACLani, ALI FACP CCDS Ot I25.10 ATHSCL HEART DISEASE OF [place] CORONARY 08/14/2015 ARNEL CARPENTER FACC, ALI FACP CCDS Ot I70.213 ATHSCL [place] ARTERIES OF EXTRM W INTRMT 08/14/2015 ARNEL CARPENTER FACC, ALI FACP CCDS Ot I70.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 TOTAL OCCLUSION OF ARTERY OF THE 08/14/2015 ARNEL CARPENTER FACC, ALI FACP CCDS Ot J44.9 CHRONIC OBSTRUCTIVE PULMONARY DISEASE, U 08/14/2015 ARNEL JACOBOC, ALI FACP CCDS Ot Z72.0 TOBACCO USE 08/14/2015 ARNEL CARPENTER FACC, ALI FACP CCDS Ot Z79.899 OTHER ASSISTED (CURRENT) DRUG THERAPY 08/21/2015 ARNEL CARPENTER FACC, ALI FACP CCDS Ot E78.5 HYPERLIPIDEMIA, UNSPECIFIED 08/21/2015 ARNEL CARPENTER FACC, ALI FACP CCDS Ot I10 ESSENTIAL (PRIMARY) HYPERTENSION 08/21/2015 ARNEL CARPENTER FACC, ALI FACP CCDS Ot I25.10 ATHSCL HEART DISEASE OF [place] CORONARY 08/21/2015 ARNEL CARPENTER FACC, ALI FACP CCDS Ot I70.213 ATHSCL [place] ARTERIES OF EXTRM W INTRMT 08/21/2015 ARNEL JACOBOC, ALI FACP CCDS Ot I70.92 CHRONIC TOTAL OCCLUSION OF ARTERY OF THE 08/21/2015 ARNEL CARPENTER FACC, ALI FACP CCDS Ot Z79.899 OTHER PYROMETER MECHANIC (CURRENT) DRUG THERAPY 09/06/2015 ARNEL CARPENTER FACC, ALI FACP CCDS Ot E11.9 TYPE 2 DIABETES MELLITUS WITHOUT COMPLIC 09/06/2015 ARNEL CARPENTER FACC, ALI FACP CCDS Ot E78.5 HYPERLIPIDEMIA, UNSPECIFIED 09/06/2015 ARNEL CARPENTER FACC, ALI FACP CCDS Ot I10 ESSENTIAL (PRIMARY) HYPERTENSION 09/06/2015 ARNEL JACOBOC, ALI FACP CCDS Ot I25.10 ATHSCL HEART DISEASE OF [place] CORONARY 09/06/2015 ARNEL JACOBOC, ALI FACP CCDS Ot I70.213 ATHSCL [place] ARTERIES OF EXTRM W INTRMT 09/06/2015 ARNEL CARPENTER FACC, ALI FACP CCDS Ot I70.92 CHRONIC TOTAL OCCLUSION OF ARTERY OF THE 09/06/2015 ARNEL CARPENTER FACC, ALI FACP CCDS Ot J44.9 CHRONIC OBSTRUCTIVE PULMONARY DISEASE, U 09/06/2015 ARNEL CARPENTER FACC, ALI FACP CCDS Ot Z72.0 TOBACCO USE 09/06/2015 ARNEL CARPENTER FACC, ALI FACP CCDS Ot Z79.899 OTHER PYROMETER MECHANIC (CURRENT) DRUG THERAPY 09/19/[address] PAIN NOS 09/19/2015 ARNEL JACOBOC, ALI FACP CCDS Ot 250.00 DIAB SOTERO WO COMPL, TYPE II OR UNSPEC TY 09/19/2015 ARNEL CARPENTER FACC, ALI FACP CCDS Ot 272.4 HYPERLIPIDEMIA NEC/NOS 09/19/2015 ARNEL CARPENTER FACC, ALI FACP CCDS Ot 414.00 CORON ATHEROSCLER NOS TYPE VESSEL, NATIV 09/19/2015 ARNEL CARPENTER FACC, ALI FACP CCDS Ot 786.50 CHEST PAIN NOS 09/19/2015 ARNEL CARPENTER FACC, ALI FACP CCDS Ot 250.00 DIAB SOTERO WO COMPL, TYPE II OR UNSPEC TY 09/19/2015 ARNEL CARPENTER FACC, ALI FACP CCDS Ot 272.4 HYPERLIPIDEMIA NEC/NOS 09/19/2015 ARNEL CARPENTER FACC, ALI FACP CCDS Ot 414.00 CORON ATHEROSCLER NOS TYPE VESSEL, NATIV 09/19/2015 ARNEL CARPENTER FACC, ALI FACP CCDS Ot 786.50 CHEST PAIN NOS 09/19/2015 ARNEL CARPENTER FACC, ALI FACP CCDS Ot V58.69 OTH MED,LT,CURRENT USE 09/19/2015 ARNEL CARPENTER FACC, ALI FACP CCDS Ot 250.00 DIAB SOTERO WO COMPL, TYPE II OR UNSPEC TY 09/19/2015 ARNEL CARPENTER FACC, ALI FACP CCDS Ot 272.4 HYPERLIPIDEMIA NEC/NOS 09/19/2015 ARNEL CARPENTER FACC, ALI FACP CCDS Ot 414.00 CORON ATHEROSCLER NOS TYPE VESSEL, NATIV 09/19/2015 ARNEL CARPENTER FACC, RENO FACP CCDS Ot 443.9 PERIPH VASCULAR DIS NOS 09/25/2015 ARNEL CARPENTER FACC, ALI FACP CCDS Ot E11.9 TYPE 2 DIABETES MELLITUS WITHOUT COMPLIC 09/25/2015 ARNEL CARPENTER FACC, ALI FACP CCDS Ot E78.0 PURE HYPERCHOLESTEROLEMIA 09/25/2015 ARNEL CARPENTER FACC, ALI FACP CCDS Ot I10 ESSENTIAL (PRIMARY) HYPERTENSION 09/25/2015 ARNEL CARPENTER FACC, ALI FACP CCDS Ot I25.10 ATHSCL HEART DISEASE OF [place] CORONARY 09/25/2015 ARNEL CARPENTER FACC, ALI FACP CCDS Ot I70.213 ATHSCL [place] ARTERIES OF EXTRM W INTRMT 09/25/2015 ARNEL CARPENTER FACC, ALI FACP CCDS Ot Z72.0 TOBACCO USE 09/25/[address] PAIN NOS 09/25/2015 ARNEL CARPENTER FACC, ALI FACP CCDS Ot 250.00 DIAB SOTERO WO COMPL, TYPE II OR UNSPEC TY 09/25/2015 ARNEL JACOBOC, ALI FACP CCDS Ot 272.4 HYPERLIPIDEMIA NEC/NOS 09/25/2015 ARNEL CARPENTER FACC, ALI FACP CCDS Ot 414.00 CORON ATHEROSCLER NOS TYPE VESSEL, NATIV 09/25/2015 ARNEL CARPENTER FACC, ALI FACP CCDS Ot 786.50 CHEST PAIN NOS 09/25/2015 ARNEL CARPENTER FACC, ALI FACP CCDS Ot 250.00 DIAB SOTERO WO COMPL, TYPE II OR UNSPEC TY 09/25/2015 ARNEL CARPENTER FACC, ALI FACP CCDS Ot 272.4 HYPERLIPIDEMIA NEC/NOS 09/25/2015 ARNEL CARPENTER FACC, ALI FACP CCDS Ot 414.00 CORON ATHEROSCLER NOS TYPE VESSEL, NATIV 09/25/2015 ARNEL CARPENTER FACC, ALI FACP CCDS Ot 786.50 CHEST PAIN NOS 09/25/2015 ARNEL CARPENTER FACC, ALI FACP CCDS Ot V58.69 OTH MED,LT,CURRENT USE 09/25/2015 ARNEL CARPENTER FACC, ALI FACP CCDS Ot 250.00 DIAB SOTERO WO COMPL, TYPE II OR UNSPEC TY 09/25/2015 ARNEL CARPENTER FACC, ALI FACP CCDS Ot 272.4 HYPERLIPIDEMIA NEC/NOS 09/25/2015 ARNEL CARPENTER FACC, ALI FACP CCDS Ot 414.00 CORON ATHEROSCLER NOS TYPE VESSEL, NATIV 09/25/2015 ARNEL CARPENTER FACC, ALI FACP CCDS Ot 443.9 PERIPH VASCULAR DIS NOS 09/25/2015 ARNEL CARPENTER FACC, ALI FACP CCDS Ot E11.9 TYPE 2 DIABETES MELLITUS WITHOUT COMPLIC 09/25/2015 ARNEL CARPENTER FACC, ALI FACP CCDS Ot E78.0 PURE HYPERCHOLESTEROLEMIA 09/25/2015 ARNEL CARPENTER FACC, ALI FACP CCDS Ot I10 ESSENTIAL (PRIMARY) HYPERTENSION 09/25/2015 ARNEL CARPENTER FACC, ALI FACP CCDS Ot I25.10 ATHSCL HEART DISEASE OF [place] CORONARY 09/25/2015 ARNEL CARPENTER FACC, ALI FACP CCDS Ot I70.213 ATHSCL [place] ARTERIES OF EXTRM W INTRMT 09/25/2015 ARNEL CARPENTER FACC, ALI FACP CCDS Ot Z72.0 TOBACCO USE 09/25/2015 ARNEL CARPENTER FACC, ALI FACP CCDS Ot 250.00 DIAB SOTERO WO COMPL, TYPE II OR UNSPEC TY 09/25/2015 ARNEL CARPENTER FACC, ALI FACP CCDS Ot 272.4 HYPERLIPIDEMIA NEC/NOS 09/25/2015 ARNEL CARPENTER FACC, ALI FACP CCDS Ot 414.00 CORON ATHEROSCLER NOS TYPE VESSEL, NATIV 09/25/2015 ARNEL CARPENTER FACC, ALI FACP CCDS Ot 786.50 CHEST PAIN NOS 09/25/2015 ARNEL CARPENTER FACC, ALI FACP CCDS Ot 250.00 DIAB SOTERO WO COMPL, TYPE II OR UNSPEC TY 09/25/2015 ARNEL CARPENTER FACC, ALI FACP CCDS Ot 272.4 HYPERLIPIDEMIA NEC/NOS 09/25/2015 ARNEL CARPENTER FACC, ALI FACP CCDS Ot 414.00 CORON ATHEROSCLER NOS TYPE VESSEL, NATIV 09/25/2015 ARNEL CARPENTER FACC, ALI FACP CCDS Ot 786.50 CHEST PAIN NOS 09/25/2015 ARNEL CARPENTER FACC, ALI FACP CCDS Ot V58.69 OTH MED,LT,CURRENT USE 09/25/2015 ARNEL CARPENTER FACC, ALI FACP CCDS Ot 250.00 DIAB SOTERO WO COMPL, TYPE II OR UNSPEC TY 09/25/2015 ARNEL CARPENTER FACC, ALI FACP CCDS Ot 272.4 HYPERLIPIDEMIA NEC/NOS 09/25/2015 ARNEL CARPENTER FACC, ALI FACP CCDS Ot 414.00 CORON ATHEROSCLER NOS TYPE VESSEL, NATIV 09/25/2015 ARNEL CARPENTER FACC, ALI FACP CCDS Ot 443.9 PERIPH VASCULAR DIS NOS 09/25/[address] PAIN NOS 09/26/2015 Ot 250.00 ASHLEY B SOTERO WO COMPL, TYPE II OR UNSPEC TY 09/26/2015 Ot 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 09/26/2015 Ot 414.01 COR ONARY ATHEROSCLEROSIS OF [place] CORON 09/26/2015 Ot 496 CHR AI RWAY OBSTRUCT NEC 09/26/2015 Ot 716.90 ART HROPATHY NOS- UNSPEC 09/26/2015 Ot 724.5 BACK ACHE NOS 09/26/[address] PAIN NOS 09/26/2015 Ot V17.49 FAM [place] HISTORY OF OTHER CARDIOVASCULAR D 09/26/2015 Ot V45.89 POS TSURGICAL STATES NEC 09/26/2015 Ot V58.66 DOROTHY G-TERM (CURRENT) USE OF ASPIRIN 09/26/2015 Ot V58.69 OTH MED,LT,CURRENT USE 09/26/2015 ARNEL CARPENTER FACC, RENO FACP CCDS Ot 250.00 DIAB SOTERO WO COMPL, TYPE II OR UNSPEC TY 09/26/2015 ARNEL CARPENTER FACC, RENO FACP CCDS Ot 272.4 HYPERLIPIDEMIA NEC/NOS 09/26/2015 ARNEL CARPENTER FACC, ALI FACP CCDS Ot 414.00 CORON ATHEROSCLER NOS TYPE VESSEL, NATIV 09/26/2015 ARNEL CARPENTER FACC, RENO FACP CCDS Ot 786.50 CHEST PAIN NOS 09/26/2015 ARNEL CARPENTER FACC, RENO FACP CCDS Ot V58.69 OTH MED,LT,CURRENT USE 09/26/2015 RENO BOYCE MD, FACC FACP CCDS Ot E78.5 HYPERLIPIDEMIA, UNSPECIFIED 09/26/2015 ARNEL CARPENTER FACC, ALI FACP CCDS Ot I10 ESSENTIAL (PRIMARY) HYPERTENSION 09/26/2015 ARNEL CARPENTER FACC, ALI FACP CCDS Ot I25.10 ATHSCL HEART DISEASE OF [place] CORONARY 09/26/2015 RENO BOYCE MD, FACC FACP CCDS Ot I70.213 ATHSCL [place] ARTERIES OF EXTRM W INTRMT 09/26/2015 RENO BOYCE MD, FACC FACP CCDS Ot I70.92 CHRONIC TOTAL OCCLUSION OF ARTERY OF THE 09/26/2015 RENO BOYCE MD, FACC FACP CCDS Ot Z79.899 OTHER ASSISTED (CURRENT) DRUG THERAPY 09/26/2015 RENO BOYCE MD, FACC FACP CCDS Ot E11.9 TYPE 2 DIABETES MELLITUS WITHOUT COMPLIC 09/26/2015 ARNEL CARPENTER FACC ALI FACP CCDS Ot E78.0 PURE HYPERCHOLESTEROLEMIA 09/26/2015 ARNEL MD FACC, ALI FACP CCDS Ot I10 ESSENTIAL (PRIMARY) HYPERTENSION 09/26/2015 ARNEL CARPENTER FACC, ALI FACP CCDS Ot I25.10 ATHSCL HEART DISEASE OF [place] CORONARY 09/26/2015 ARNEL CARPENTER FACC, ALI FACP CCDS Ot I70.213 ATHSCL [place] ARTERIES OF EXTRM W INTRMT 09/26/2015 ARNEL CARPENTER FACC, ALI FACP CCDS Ot Z72.0 TOBACCO USE 10/10/[address] PAIN NOS 10/10/2015 ARNEL CARPENTER FACC, ALI FACP CCDS Ot 250.00 DIAB SOTERO WO COMPL, TYPE II OR UNSPEC TY 10/10/2015 ARNEL CARPENTER FACC, ALI FACP CCDS Ot 272.4 HYPERLIPIDEMIA NEC/NOS 10/10/2015 ARNEL CARPENTER FACC, ALI FACP CCDS Ot 414.00 CORON ATHEROSCLER NOS TYPE VESSEL, NATIV 10/10/2015 ARNEL CARPENTER FACC, ALI FACP CCDS Ot 786.50 CHEST PAIN NOS 10/10/2015 ARNEL CARPENTER FACC, ALI FACP CCDS Ot 250.00 DIAB SOTERO WO COMPL, TYPE II OR UNSPEC TY 10/10/2015 ARNEL CARPENTER FACC, ALI FACP CCDS Ot 272.4 HYPERLIPIDEMIA NEC/NOS 10/10/2015 ARNEL CARPENTER FACC, ALI FACP CCDS Ot 414.00 CORON ATHEROSCLER NOS TYPE VESSEL, NATIV 10/10/2015 ARNEL CARPENTER FACC, ALI FACP CCDS Ot 786.50 CHEST PAIN NOS 10/10/2015 ARNEL CARPENTER FACC, ALI FACP CCDS Ot V58.69 OTH MED,LT,CURRENT USE 10/10/2015 ARNEL CARPENTER FACC, ALI FACP CCDS Ot 250.00 DIAB SOTERO WO COMPL, TYPE II OR UNSPEC TY 10/10/2015 ARNEL CARPENTER FACC, ALI FACP CCDS Ot 272.4 HYPERLIPIDEMIA NEC/NOS 10/10/2015 ARNEL CARPENTER FACC, ALI FACP CCDS Ot 414.00 CORON ATHEROSCLER NOS TYPE VESSEL, NATIV 10/10/2015 ARNEL CARPENTER FACC, ALI FACP CCDS Ot 443.9 PERIPH VASCULAR DIS NOS 10/10/2015 ARNEL CARPENTER FACC, ALI FACP CCDS Ot E11.9 TYPE 2 DIABETES MELLITUS WITHOUT COMPLIC 10/10/2015 ARNEL CARPENTER FACC, ALI FACP CCDS Ot E78.0 PURE HYPERCHOLESTEROLEMIA 10/10/2015 ARNEL CARPENTER FACC, ALI FACP CCDS Ot I10 ESSENTIAL (PRIMARY) HYPERTENSION 10/10/2015 ARNEL CARPENTER FACC, ALI FACP CCDS Ot I25.10 ATHSCL HEART DISEASE OF [place] CORONARY 10/10/2015 ARNEL CARPENTER FACC, ALI FACP CCDS Ot I70.213 ATHSCL [place] ARTERIES OF EXTRM W INTRMT 10/10/2015 ARNEL CARPENTER FACC, ALI FACP CCDS Ot Z72.0 TOBACCO USE 10/10/2015 ARNEL JACOBOC, ALI FACP CCDS Ot 250.00 DIAB SOTERO WO COMPL, TYPE II OR UNSPEC TY 10/10/2015 ARNEL CARPENTER FACC, ALI FACP CCDS Ot 272.4 HYPERLIPIDEMIA NEC/NOS 10/10/2015 ARNEL CARPENTER FACC, ALI FACP CCDS Ot 414.00 CORON ATHEROSCLER NOS TYPE VESSEL, NATIV 10/10/2015 ARNEL CARPENTER FACC, ALI FACP CCDS Ot 443.9 PERIPH VASCULAR DIS NOS 10/10/2015 ARNEL CARPENTER FACC, ALI FACP CCDS Ot 250.00 DIAB SOTERO WO COMPL, TYPE II OR UNSPEC TY 10/10/2015 ARNEL CARPENTER FACC, ALI FACP CCDS Ot 272.4 HYPERLIPIDEMIA NEC/NOS 10/10/2015 ARNEL CARPENTER FACC, ALI FACP CCDS Ot 414.00 CORON ATHEROSCLER NOS TYPE VESSEL, NATIV 10/10/2015 ARNEL CARPENTER FACC, ALI FACP CCDS Ot 786.50 CHEST PAIN NOS 10/10/2015 ARNEL CARPENTER FACC, RENO FACP CCDS Ot V58.69 OTH MED,LT,CURRENT USE 10/10/2015 ARNEL CARPENTER FACC, ALI FACP CCDS Ot 250.00 DIAB SOTERO WO COMPL, TYPE II OR UNSPEC TY 10/10/2015 ARNEL CARPENTER FACC, ALI FACP CCDS Ot 272.4 HYPERLIPIDEMIA NEC/NOS 10/10/2015 ARNEL CARPENTER FACC, ALI FACP CCDS Ot 414.00 CORON ATHEROSCLER NOS TYPE VESSEL, NATIV 10/10/2015 ARNEL CARPENTER FACC, ALI FACP CCDS Ot 786.50 CHEST PAIN NOS 10/10/[address] PAIN NOS 04/22/2017 JAVIER VALLES PODIATRIC SURGEON Ot E11.9 TYPE 2 DIABETES MELLITUS WITHOUT COMPLIC 04/22/2017 BAIMA, JAVIER L PODIATRIC SURGEON Ot E78.5 HYPERLIPIDEMIA, UNSPECIFIED 04/22/2017 BAIMA, JAVIER L PODIATRIC SURGEON Ot F17.210 NICOTINE DEPENDENCE, CIGARETTES, UNCOMPL 04/22/2017 BAIMA, JAVIER L PODIATRIC SURGEON Ot G47.30 SLEEP APNEA, UNSPECIFIED 04/22/2017 BAIMA, JAVIER L PODIATRIC SURGEON Ot I 10 ESSENTIAL (PRIMARY) HYPERTENSION 04/22/2017 BAIMA, JAVIER L PODIATRIC SURGEON Ot I25.10 ATHSCL HEART DISEASE OF [place] CORONARY 04/22/2017 BAIMA, JAVIER L PODIATRIC SURGEON Ot I70.212 ATHSCL [place] ARTERIES OF [facility] 04/22/2017 BAIMA, JAVIER L PODIATRIC SURGEON Ot T82.856A STENOSIS OF PERIPHERAL VASCULAR STENT, I 04/22/2017 BAIMA, JAVIER L PODIATRIC SURGEON Ot Z79.82 ASSISTED (CURRENT) USE OF ASPIRIN 04/22/2017 REENA, JAVIER L PODIATRIC SURGEON Ot Z79.84 PYROMETER MECHANIC (CURRENT) USE OF ORAL HYPOGLYC 04/22/2017 REENA JAVIER L PODIATRIC SURGEON Ot Z79.899 OTHER PYROMETER MECHANIC (CURRENT) DRUG THERAPY 04/23/2017 THERESEMA, JAVIER L PODIATRIC SURGEON Ot E11.9 TYPE 2 DIABETES MELLITUS WITHOUT COMPLIC 04/23/2017 BAIMA, JAVIER L PODIATRIC SURGEON Ot E78.5 HYPERLIPIDEMIA, UNSPECIFIED 04/23/2017 BAIMA, JAVIER L PODIATRIC SURGEON Ot F17.210 NICOTINE DEPENDENCE, CIGARETTES, UNCOMPL 04/23/2017 BAIMA, JAVIER L PODIATRIC SURGEON Ot G47.30 SLEEP APNEA, UNSPECIFIED 04/23/2017 BAIMA, JAVIER L PODIATRIC SURGEON Ot I 10 ESSENTIAL (PRIMARY) HYPERTENSION 04/23/2017 BAIMA, JAVIER L PODIATRIC SURGEON Ot I25.10 ATHSCL HEART DISEASE OF [place] CORONARY 04/23/2017 BAIMA, JAVIER L PODIATRIC SURGEON Ot I70.212 ATHSCL [place] ARTERIES OF [facility] 04/23/2017 BAIMA, JAVIER L PODIATRIC SURGEON Ot T82.856A STENOSIS OF PERIPHERAL VASCULAR STENT, I 04/23/2017 REENA JAVIER L PODIATRIC SURGEON Ot Z79.82 ASSISTED (CURRENT) USE OF ASPIRIN 04/23/2017 REENA JAVIER L PODIATRIC SURGEON Ot Z79.84 ASSISTED (CURRENT) USE OF ORAL HYPOGLYC 04/23/2017 THERESEJAVIER MCDONNELL PODIATRIC SURGEON Ot Z79.899 OTHER ASSISTED (CURRENT) DRUG THERAPY 11/11/2017 THERESEJAVIER MCDONNELL PODIATRIC SURGEON Ot E11.9 TYPE 2 DIABETES MELLITUS WITHOUT COMPLIC 11/11/2017 THERESEJAVIER MCDONNELL L PODIATRIC SURGEON Ot E78.5 HYPERLIPIDEMIA, UNSPECIFIED 11/11/2017 THERESEJAVIER MCDONNELL L PODIATRIC SURGEON Ot F17.210 NICOTINE DEPENDENCE, CIGARETTES, UNCOMPL 11/11/2017 THERESEKECIA JAVIER L PODIATRIC SURGEON Ot G47.30 SLEEP APNEA, UNSPECIFIED 11/11/2017 THERESEKECIA JAVIER L PODIATRIC SURGEON Ot I 10 ESSENTIAL (PRIMARY) HYPERTENSION 11/11/2017 REENA JAVIER L PODIATRIC SURGEON Ot I25.10 ATHSCL HEART DISEASE OF [place] CORONARY 11/11/2017 THERESEKECIA JAVIER L PODIATRIC SURGEON Ot 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 11/11/2017 THERESEKECIA JAVIER L PODIATRIC SURGEON Ot T82.856A STENOSIS OF PERIPHERAL VASCULAR STENT, I 11/11/2017 REENA JAVIER Huddleston PODIATRIC SURGEON Ot Z79.82 ASSISTED (CURRENT) USE OF ASPIRIN 11/11/2017 REENA JAVIER Huddleston PODIATRIC SURGEON Ot Z79.84 PYROMETER MECHANIC (CURRENT) USE OF ORAL HYPOGLYC 11/11/2017 THERESEJAVIER MCDONNELL PODIATRIC SURGEON Ot Z79.899 OTHER ASSISTED (CURRENT) DRUG THERAPY Procedures Code Description [place] [address] ROUT INE VENIPUNCTURE 02/11/2012 57703 CMP 02/11/2012 36218 LIPI D PANEL 02/11/20125547417 GF R CALC (RESULT ONLY) 02/11/2012 94281 ROUT INE VENIPUNCTURE 04/09/2012 10031 A1C (IN-HOUSE) 04/09/2012 50804 MICR O ALBUMIN-IN HOUSE 04/09/2012 22168 CRP 04/09/2012 41421 TSH 04/09/2012 17191 THER APUTIC INJ SQ/IM 07/15/2012 J1885 ANN DOL PER 15 MG, INJ KETOROLAC TROMETHAMINE 07/15/2012 35383 A1C (IN-HOUSE) 08/17/2012 11877 A1C (IN-HOUSE) 11/19/2012 52470 THER APUTIC INJ SQ/IM 01/04/2013 J0696 CEFT RIAXONE SODIUM INJECTION 01/04/2013 21206 DEBR KAROLINE SKIN PARTIAL 01/14/2013 Podiatry W Lori reinoso 02/07/2013 52707 A1C (IN-HOUSE) 02/15/2013 Cardiolog Reno Boyce 02/17/2013 39715 DEBR KAROLINE NAIL >6 05/27/2013 46535 A1C (IN-HOUSE) 06/02/2013 13533 OXIMETRY 07/20/2013 99717 ECHO 2D 08/10/2013 68329 DEBR KAROLINE NAIL >6 08/19/2013 80356 NUCL EAR STRESS TESTING 08/22/2013 14705 MICR O ALBUMIN-IN HOUSE 09/08/2013 38786 A1C (IN-HOUSE) 09/08/2013 67211 MICR OALBUMIN 09/08/2013 71936 US C AROTID DOPPLER 10/19/2013 90546 ELÍAS 10/19/2013 34642 OXIMETRY 10/19/2013 75149 A1C (IN-HOUSE) 12/22/2013 85527 OXIMETRY 12/29/2013 62197 A1C (IN-HOUSE) 03/13/2014 97409 A1C (IN-HOUSE) 06/23/2014 Results Test Result Range Comp. Metabolic Panel (14) - 06/23/16 08 :54 Glucose, Serum 139 mg/dL 65-99 BUN 15 mg/dL 6-24 Creatinine, Serum 0.91 mg/dL 0.76-1.27 eGFR If NonAfricn Am 92 mL/min/1.73 >59 eGFR If Africn Am 106 mL/min/1.73 >5 9 BUN/Creatinine Ratio 16 9-20 Sodium, Serum 141 mmol/L 134-144 Potassium, Serum 4.9 mmol/L 3.5-5.2 Chloride, Serum 103 mmol/L 96-106 Carbon Dioxide, Total 22 mmol/L 18-29 Calcium, Serum 8.9 mg/dL 8.7-10.2 Protein, Total, Serum 7.3 g/dL 6.0-8.5 Albumin, Serum 4.3 g/dL 3.5-5.5 Globulin, Total 3.0 g/dL 1.5-4.5 A/G Ratio 1.4 1.2-2.2 Bilirubin, Total 0.5 mg/dL 0.0-1.2 Alkaline Phosphatase, S 55 IU/L 39-117 AST (SGOT) 24 IU/L 0-40 ALT (SGPT) 21 IU/L 0-44 Lipid Panel - 06/23/16 08:54 Cholesterol, Total 118 mg/dL 100-199 Triglycerides 188 mg/dL 0-149 HDL Cholesterol 26 mg/dL >39 VLDL Cholesterol Maximino 38 mg/dL 5-40 LDL Cholesterol Calc 54 mg/dL 0-99 Automated blood complete blood count (he mogram) panel - 04/21/17 07:22 Blood leukocytes automated count (number/volume) 8.2 10*3/uL 4.3-11.0 Blood erythrocytes automated count (number/volume) 4.45 10*6/uL 4.35-5.85 Venous blood hemoglobin measurement (mass/volume) 14.4 g/dL 13.3-17.7 Blood hematocrit (volume fraction) 40 % 40-54 Automated erythrocyte mean corpuscular volume 90 [ foz_us] 80-99 Automated erythrocyte mean corpuscular h emoglobin (mass per erythrocyte) 32 pg 25-34 Automated erythrocyte mean corpuscular h emoglobin concentration measurement (mass/volume) 36 g/dL 32-36 Automated erythrocyte distribution width ratio 14. 0 % 10.0- 14.5 Automated blood platelet count (count/volume) 142 10*3/uL 130-400 Automated blood platelet mean volume measurement 11.0 [foz_us] 7.4-10.4 PT panel in platelet poor plasma by coag ulation assay - 04/21/17 07:22 Prothrombin time (PT) in platelet poor plasma by coagu lation assay 13.9 s 12.2-14.7 INR in platelet poor plasma or blood by coagulation as say 1.1 0.8-1.4 Activated partial thromboplastin time (a PTT) in platelet poor plasma bycoagulation assay - 04/21/17 07:22 Activated partial thromboplastin time (a PTT) in platelet poor plasma bycoagulation assay 32 s 24-35 Comprehensive metabolic panel - 04/21/17 07:22 Serum or plasma sodium measurement (moles/volume) 139 mmol/L 135-145 Serum or plasma potassium measurement (moles/volume) 3.9 mmol/L 3.6-5.0 Serum or plasma chloride measurement (moles/volume) 104 mmol/L 98-107 Carbon dioxide 24 mmol/L 21-32 Serum or plasma anion gap determination (moles/volume) 11 mmol/L 5-14 Serum or plasma urea nitrogen measurement (mass/volume ) 24 mg/dL 7-18 Serum or plasma creatinine measurement (mass/volume) 1.09 mg/dL 0.60-1.30 Serum or plasma urea nitrogen/creatinine mass ratio 22 NRG Serum or plasma creatinine measurement w ith calculation of estimated glomerular filtration rate > NRG Serum or plasma glucose measurement (mass/volume) 164 mg/dL 70-105 Serum or plasma calcium measurement (mass/volume) 9.4 mg/dL 8.5-10.1 Serum or plasma total bilirubin measurement (mass/volu me) 0.6 mg/dL 0.1-1.0 Serum or plasma alkaline phosphatase mariluz surement (enzymatic activity/volume) 56 U/L 40-136 Serum or plasma aspartate aminotransfera se measurement (enzymatic activity/volume) 34 U/L 5-34 Serum or plasma alanine aminotransferase measurement (enzymatic activity/volume) 30 U/L 0-55 Serum or plasma protein measurement (mass/volume) 7.9 g/dL 6.4-8.2 Serum or plasma albumin measurement (mass/volume) 4.3 g/dL 3.2-4.5 Lipid 1996 panel - 04/21/17 07:22 Serum or plasma triglyceride measurement (mass/volume) 187 mg/dL <150 Serum or plasma cholesterol measurement (mass/volume) 118 mg/dL < 200 Serum or plasma cholesterol in HDL measurement (mass/v olume) 28 mg/dL 40-60 Cholesterol in LDL [mass/volume] in serum or plasma by direct assay 60 mg/dL 1-129 Serum or plasma cholesterol in VLDL measurement (mass/ volume) 37 mg/dL 5-40 Methicillin resistant Staphylococcus aur eus (MRSA) screening culture - 04/21/17 07:22 Methicillin resistant Staphylococcus aureus (MRSA) scr eening culture NEG NRG Capillary blood glucose measurement by g lucometer (mass/volume) - 04/21/17 15:24 Capillary blood glucose measurement by glucometer (mas s/volume) 89 mg/dL 70-110 Capillary blood glucose measurement by g lucometer (mass/volume) - 04/21/17 20:14 Capillary blood glucose measurement by glucometer (mas s/volume) 181 mg/dL 70-110 Capillary blood glucose measurement by g lucometer (mass/volume) - 04/22/17 05:16 Capillary blood glucose measurement by glucometer (mas s/volume) 146 mg/dL 70-110 Automated blood complete blood count (he mogram) panel - 04/22/17 05:41 Blood leukocytes automated count (number/volume) 5.5 10*3/uL 4.3-11.0 Blood erythrocytes automated count (number/volume) 4.26 10*6/uL 4.35-5.85 Venous blood hemoglobin measurement (mass/volume) 13.7 g/dL 13.3-17.7 Blood hematocrit (volume fraction) 38 % 40-54 Automated erythrocyte mean corpuscular volume 90 [ foz_us] 80-99 Automated erythrocyte mean corpuscular h emoglobin (mass per erythrocyte) 32 pg 25-34 Automated erythrocyte mean corpuscular h emoglobin concentration measurement (mass/volume) 36 g/dL 32-36 Automated erythrocyte distribution width ratio 14. 1 % 10.0- 14.5 Automated blood platelet count (count/volume) 107 10*3/uL 130-400 Automated blood platelet mean volume measurement 10.9 [foz_us] 7.4-10.4 Whole blood basic metabolic panel - 04/03 03/19 05:41 Serum or plasma sodium measurement (moles/volume) 138 mmol/L 135-145 Serum or plasma potassium measurement (moles/volume) 4.1 mmol/L 3.6-5.0 Serum or plasma chloride measurement (moles/volume) 104 mmol/L 98-107 Carbon dioxide 22 mmol/L 21-32 Serum or plasma anion gap determination (moles/volume) 12 mmol/L 5-14 Serum or plasma urea nitrogen measurement (mass/volume ) 16 mg/dL 7-18 Serum or plasma creatinine measurement (mass/volume) 0.80 mg/dL 0.60-1.30 Serum or plasma urea nitrogen/creatinine mass ratio 20 NRG Serum or plasma creatinine measurement w ith calculation of estimated glomerular filtration rate > NRG Serum or plasma glucose measurement (mass/volume) 122 mg/dL 70-105 Serum or plasma calcium measurement (mass/volume) 8.7 mg/dL 8.5-10.1 CMP - 07/24/17 10:47 GLUCOSE 162 mg/dL 65-99 UREA NITROGEN (BUN) 21 mg/dL 7-25 CREATININE 0.97 mg/dL 0.70-1.25 eGFR NON-AFR. CENTRAL AFRICAN 84 mL/min/1.73m2 > OR = 60 eGFR 98 mL/min/1.73m2 > OR = 60 BUN/CREATININE RATIO NOT APPLICABLE (calc) 6-22 SODIUM 140 mmol/L 135-146 POTASSIUM 5.2 mmol/L 3.5-5.3 CHLORIDE 106 mmol/L 98-110 CARBON DIOXIDE 27 mmol/L 20-31 CALCIUM 10.0 mg/dL 8.6-10.3 PROTEIN, TOTAL 7.4 g/dL 6.1-8.1 ALBUMIN 4.3 g/dL 3.6-5.1 GLOBULIN 3.1 g/dL (calc) 1.9-3.7 ALBUMIN/GLOBULIN RATIO 1.4 (calc) 1.0-2. 5 BILIRUBIN, TOTAL 0.6 mg/dL 0.2-1.2 ALKALINE PHOSPHATASE 59 U/L 40-115 AST 54 U/L 10-35 ALT 37 U/L 9-46 CBC - 08/20/17 14:44 WHITE BLOOD CELL COUNT 7.1 Thousand/uL 3 .8-10.8 RED BLOOD CELL COUNT 4.37 Million/uL 4.2 0-5.80 HEMOGLOBIN 14.0 g/dL 13.2-17.1 HEMATOCRIT 39.6 % 38.5-50.0 MCV 90.6 fL 80.0-100.0 MCH 32.0 pg 27.0-33.0 MCHC 35.4 g/dL 32.0-36.0 RDW 12.9 % 11.0-15.0 PLATELET COUNT 154 Thousand/uL 140-400 MPV 11.3 fL 7.5-12.5 ABSOLUTE NEUTROPHILS 4835 cells/uL 1500- 7800 ABSOLUTE LYMPHOCYTES 1590 cells/uL 850-3 900 ABSOLUTE MONOCYTES 518 cells/uL 200-950 ABSOLUTE EOSINOPHILS 114 cells/uL 15-500 ABSOLUTE BASOPHILS 43 cells/uL 0-200 NEUTROPHILS 68.1 % NRG LYMPHOCYTES 22.4 % NRG MONOCYTES 7.3 % NRG EOSINOPHILS 1.6 % NRG BASOPHILS 0.6 % NRG CRP - 08/20/17 14:44 C-REACTIVE PROTEIN 9.8 mg/L <8.0 LIPID PANEL - 08/18/18 09:30 CHOLESTEROL, TOTAL 114 mg/dL <200 HDL CHOLESTEROL 28 mg/dL >40 TRIGLYCERIDES 261 mg/dL <150 LDL-CHOLESTEROL 55 mg/dL (calc) NRG CHOL/HDLC RATIO 4.1 (calc) <5.0 NON HDL CHOLESTEROL 86 mg/dL (calc) <130 MICROALBUMIN/CREATININE RATIO, URINE - 0 08/18/18 09:30 CREATININE, RANDOM URINE 124 mg/dL 20-32 0 MICROALBUMIN 24.8 mg/dL See Note: MICROALBUMIN/CREATININE RATIO, RANDOM URINE 200 mcg/mg creat <30 CMP - 08/18/18 09:30 GLUCOSE 143 mg/dL 65-99 UREA NITROGEN (BUN) 29 mg/dL 7-25 CREATININE 1.02 mg/dL 0.70-1.25 eGFR NON-AFR. CENTRAL AFRICAN 79 mL/min/1.73m2 > OR = 60 eGFR 92 mL/min/1.73m2 > OR = 60 BUN/CREATININE RATIO 28 (calc) 6-22 SODIUM 139 mmol/L 135-146 POTASSIUM 4.1 mmol/L 3.5-5.3 CHLORIDE 105 mmol/L 98-110 CARBON DIOXIDE 25 mmol/L 20-32 CALCIUM 9.2 mg/dL 8.6-10.3 PROTEIN, TOTAL 7.8 g/dL 6.1-8.1 ALBUMIN 4.4 g/dL 3.6-5.1 GLOBULIN 3.4 g/dL (calc) 1.9-3.7 ALBUMIN/GLOBULIN RATIO 1.3 (calc) 1.0-2. 5 BILIRUBIN, TOTAL 0.6 mg/dL 0.2-1.2 ALKALINE PHOSPHATASE 57 U/L 40-115 AST 35 U/L 10-35 ALT 21 U/L 9-46 A1C - 08/18/18 09:30 HEMOGLOBIN A1c 6.2 % of total Hgb <5.7 LIPID PANEL - 11/04/18 10:11 CHOLESTEROL, TOTAL 124 mg/dL <200 HDL CHOLESTEROL 28 mg/dL >40 TRIGLYCERIDES 266 mg/dL <150 LDL-CHOLESTEROL 65 mg/dL (calc) NRG CHOL/HDLC RATIO 4.4 (calc) <5.0 NON HDL CHOLESTEROL 96 mg/dL (calc) <130 [facility] - 11/04/18 10:11 GLUCOSE 158 mg/dL 65-99 UREA NITROGEN (BUN) 25 mg/dL 7-25 CREATININE 1.13 mg/dL 0.70-1.25 eGFR NON-AFR. CENTRAL AFRICAN 70 mL/min/1.73m2 > OR = 60 eGFR 81 mL/min/1.73m2 > OR = 60 BUN/CREATININE RATIO NOT APPLICABLE (calc) 6-22 SODIUM 138 mmol/L 135-146 POTASSIUM 4.6 mmol/L 3.5-5.3 CHLORIDE 104 mmol/L 98-110 CARBON DIOXIDE 27 mmol/L 20-32 CALCIUM 9.1 mg/dL 8.6-10.3 PROTEIN, TOTAL 7.0 g/dL 6.1-8.1 ALBUMIN 4.2 g/dL 3.6-5.1 GLOBULIN 2.8 g/dL (calc) 1.9-3.7 ALBUMIN/GLOBULIN RATIO 1.5 (calc) 1.0-2. 5 BILIRUBIN, TOTAL 0.8 mg/dL 0.2-1.2 ALKALINE PHOSPHATASE 42 U/L 40-115 AST 28 U/L 10-35 ALT 25 U/L 9-46 A1C - 02/03/19 10:39 HEMOGLOBIN A1c 6.4 % of total Hgb <5.7 CPK - 02/07/19 16:06 CREATINE KINASE, TOTAL 89 U/L 44-196 VITAMIN D, 25-H - 02/07/19 16:06 VITAMIN D,25-OH,TOTAL,IA 27 ng/mL 30-10 0 STOOL (WBC) - 02/09/19 13:48 FECAL LEUKOCYTE STAIN SEE NOTE NRG A1C - 05/05/19 10:40 HEMOGLOBIN A1c 6.9 % of total Hgb <5.7 Encounters ACCT No. Visit Date/Time Discharge Status Pt. Type Provider Facility Loc./Unit Complaint [id number] 06/24/2016 08:38:00 Document Registration [id number] 06/23/2014 08:49:00 06/23/2014 23:59: 59 CLS Outpatient ELVIN ABDI MD [id number] 04/28/2014 08:49:00 04/28/2014 23:59: 59 CLS Outpatient LORI SEGAL DPM [id number] 03/13/2014 15:28:00 03/13/2014 23:59: 59 CLS Outpatient ELVIN ABDI MD [id number] 12/22/2013 16:13:00 12/22/2013 23:59: 59 CLS Outpatient ELVIN ABDI MD [id number] 12/14/2013 10:27:00 12/14/2013 23:59: 59 CLS Outpatient RENO BOYCE MD [id number] 10/19/2013 10:52:00 10/19/2013 23:59: 59 CLS Outpatient VILLELA IVYLis Yang [id number] 09/08/2013 10:51:00 09/08/2013 23:59: 59 CLS Outpatient ELVIN ABDI MD [id number] 08/19/2013 09:27:00 08/19/2013 23:59: 59 CLS Outpatient TIKA WARNERSIVAKUMAR [id number] 07/20/2013 10:52:00 07/20/2013 23:59: 59 CLS Outpatient SIVAKUMAR VILLELA DO [id number] 06/02/2013 09:23:00 06/02/2013 23:59: 59 CLS Outpatient ELVIN ABDI MD [id number] 05/27/2013 09:24:00 05/27/2013 23:59: 59 CLS Outpatient SIVAKUMAR VILLELA DO [id number] 02/15/2013 15:31:00 02/15/2013 23:59: 59 CLS Outpatient ELVIN ABDI MD [id number] 02/04/2013 09:43:00 02/04/2013 23:59: 59 CLS Outpatient SIVAKUMAR VILLELA DO [id number] 01/14/2013 10:53:00 01/14/2013 23:59: 59 CLS Outpatient SIVAKUMAR VILLELA DO [id number] 01/11/2013 10:35:00 01/11/2013 23:59: 59 CLS Outpatient CLAUDIA HUTSON APRN [id number] 01/04/2013 11:05:00 01/04/2013 23:59: 59 CLS Outpatient CLAUDIA HUTSON APRN [id number] 11/19/2012 08:30:00 11/19/2012 23:59: 59 CLS Outpatient ELVIN ABDI MD [id number] 04/09/2012 14:32:00 04/09/2012 23:59: 59 CLS Outpatient ELVIN ABDI MD [id number] 02/11/2012 10:00:00 02/11/2012 23:59: 59 CLS Outpatient ELVIN ABDI MD [id number] 09/01/2012 10:36:00 Document Registration [id number] 08/17/2012 15:49:00 Document Registration [id number] 07/15/2012 15:06:00 Document Registration [id number] 06/09/2019 14:00:00 06/09/2019 23:59: 59 CLS Outpatient ALLISON ANISH MCCRARYROBERT TIRADO [id number] 05/05/2019 09:15:00 Document Registration [id number] 02/09/2019 13:30:00 Document Registration [id number] 02/07/2019 15:00:00 Document Registration [id number] 02/03/2019 09:15:00 Document Registration [id number] 11/04/2018 10:00:00 Document Registration [id number] 08/18/2018 10:00:00 Document Registration [id number] 08/20/2017 13:40:00 Document Registration [id number] 07/24/2017 10:40:00 Document Registration [id number] 04/21/2017 06:53:00 018 10:33:00 DIS Outpatient JAVIER VALLES [facility] PAD [id number] 09/25/2015 07:32:00 016 23:59:59 CLS Outpatient ARNEL CARPENTER FACC, ALI FACP CC DS [facility] CARD [id number] 08/21/2015 06:58:00 016 17:51:00 DIS Outpatient ARNEL CARPENTER FACC, ALI FACP CC DS [facility] CATH [id number] 08/14/2015 08:19:00 016 16:20:00 DIS Outpatient ARNEL CARPENTER FACC, ALI FACP CC DS [facility] [id number] 10/24/2013 13:07:00 014 23:59:59 CLS Outpatient ARNEL CARPENTER FACC, ALI FACP CC DS [facility] RAD [id number] 08/22/2013 11:25:00 014 23:59:59 CLS Outpatient ARNEL CARPENTER FACC, ALI FACP CC DS [facility] CARD [id number] 08/10/2013 10:31:00 014 23:59:59 CLS Outpatient ARNEL CARPENTER FACC, ALI FACP CC DS [facility] CARD [id number] 06/21/2019 09:07:[address] Outpatient ARNEL CARPENTER FACC, RENO GRIMES CCDS [facility] PAD,LEG DISCOMFORT,CAD, HTN [id number] 05/06/2010 05:46:00 Document Registration [id number] 05/02/2010 09:57:00 Document Registration
--- OUTSIDE RECORDS SUMMARY | 2019-06-21 16:37 | XMS REPORT ---
Author Author Nick SEGAL Organization [employer] Address Unknown Phone Unavailable Care Team Providers Care Kinesiotherapist Name Role Phone MARINO SEGAL CP Unavailable Allergies No Known Allergies Problems Problem Type Condition Code Onset Dates Condition Statu s Problem Hyperlipidemia E78.5 Active Assessment Ulcer of heel, left, with unspecified severity L97.429 Active Problem Impaired circulation I99.9 Active Problem DM neuro manif type II E11.49 Activ e Problem Cigarette nicotine dependence with nicotine-induced di sorder F17.219 Active Problem Hypertension I10 Active Problem Left leg claudication I73.9 Active Problem Diabetes mellitus E11.9 Active Problem CAD (coronary artery disease) I25.10 Active Medications No Known Medications Procedures Procedure Coding System Code Date Office Visit, Est Pt., Level 3 CPT-4 04236 A 2015 DEBRIDE SKIN/TISSUE CPT-4 41567 Oct 12, 2015 Vital Signs Date/Time: Oct 12, 2015 Blood Pressure Diastolic 82 mmHg Blood Pressure Systolic 140 mmHg Height 75 in Results No Known Results Summary Purpose [employer] Submission
--- OUTSIDE RECORDS SUMMARY | 2019-06-21 16:37 | XMS REPORT ---
Author Author Nick ABDI Organization [facility] Address [address] [place] [address] Care Team Providers Care Mandarin Teacher Name Role Phone ELVIN ABDI Unavailable PROBLEMS Type Condition ICD9-CM Code [id number] Code Onset Dates Condition S tatus SNOMED Code Problem CAD (coronary artery disease) I25.10 Active 72607827 Problem Hyperlipidemia E78.5 Active 94536 004 Problem Hypertension I10 Active 9490542 3 Problem Left leg claudication I73.9 Active 350071821 Problem Hammertoe M20.40 Active 302649335 Problem Reactive depression F32.9 Active 27853845 Problem DM neuro manif type II E11.49 Active 06284221 Problem Diabetes mellitus E11.9 Active 73 814234 Problem Cigarette nicotine dependence with nicotine-induced di sorder F17.219 Active 79534859 Problem Impaired circulation I99.9 Active 29330781 ALLERGIES No Information ENCOUNTERS Encounter Location Date Diagnosis [place] [address] [facility] [id number] [address] [place] [address] Jul, [place] [address] [place] [id number] [address] [place] [address] Apr, Onychomycosis B35.1 ; DM chuck ro manif type II E11.49 and Hammertoe M20.40 [facility] [address] [facility] [id number] [address] [place] [address] Apr, Diabetes mellitus E11.9 and Hypertension I10 [place] [address] [facility] [id number] [address] [place] [address] Mar, Hypertension I10 and Diabete s mellitus E11.9 [place] [address] [facility] [id number] [address] [place] [address] Mar, Hypertension I10 and Diabete s mellitus E11.9 [facility] [address] [facility] [id number] [address] [place] [address] Jan, Onychomycosis B35.1 and DM n euro manif type II E11.49 [facility] [address] [facility] [id number] [address] [place] [address] Dec, [facility] [address] [facility] [id number] [address] [place] [address] Dec, [facility] [address] [facility] [id number] [address] [place] [address] Dec, Hypertension I10 and Diabete s mellitus E11.9 [place] [address] [place] [id number] [address] [place] [address] Oct, Encounter for immunization Z 23 ; Diabetes mellitus E11.9 ; Hypertension I10 and Cigarette nicotine dependence with nicotine-induced disorder F17.219 [place] [address] [place] [id number] [address] [place] [address] Oct, Diabetes mellitus E11.9 [place] [address] [place] [id number] [address] [place] [address] Oct, Onychomycosis B35.1 ; DM chuck ro manif type II E11.49 and Hammertoe M20.40 [place] [address] [place] [id number] [address] [place] [address] Jul, Diabetes mellitus E11.9 [place] [address] [facility] [id number] [address] [place] [address] Jul, Onychomycosis B35.1 ; Hammer toe M20.40 and DM neuro manif type II E11.49 [facility] [address] [facility] [id number] [address] [place] [address] May, Diabetes mellitus E11.9 [place] [address] [facility] [id number] [address] [place] [address] May, Diabetes mellitus E11.9 [place] [id number] [place] [id number] [address] [place] [address] Nov, Diabetes mellitus E11.9 ; Hy pertension I10 ; Reactive depression F32.9 and Encounter for immunization Z23 [place] [address] [address] Oct, Ulcer of other part of foot L97.[address] [address] Sep, Onychomycosis B35.1 ; Ulcer of heel, left, with unspecified severity L97.429 and DM neuro manif type II E11.[address] [address] Sep, [address] [address] Sep, Ulcer of heel, left, with un specified severity L97.[address] [address] Aug, Onychomycosis B35.1 ; Ulcer of heel, left, with unspecified severity L97.429 and DM neuro manif type II E11.[address] [address] Jul, Diabetes mellitus E11.9 ; Hy pertension I10 ; Cigarette nicotine dependence with nicotine-induced disorder F17.219 and CAD (coronary artery disease) I25.[address] [address] Jul, Left leg claudication I73.9 ; Right leg claudication I73.9 ; CAD (coronary artery disease) I25.10 ; Hypertension I10 and Hyperlipidemia E78.[address] [address] Jul, Ulcer of heel, left, with un specified severity L97.429 and DM neuro manif type II E11.[address] [address] June, Ulcer of heel, left, with un specified severity L97.429 and Ulcer of other part of foot L97.509 [place] [address] [place] [address] June, Ulcer of heel, left, with un specified severity L97.429 and Ulcer of foot, left, with unspecified severity L97.529 [place] [address] [place] [address] May, [place] [address] [place] [id number] [address] [place] [address] May, [place] [address] [address] Apr, DM neuro manif type II E11.4 9 ; Hypertension I10 and Sleep apnea in adult G47.[address] [address] Apr, [place] [address] [place] [address] Apr, Ulcer of foot L97.509 and DM neuro manif type II E11.49 [place] [address] [place] [id number] [address] [place] [address] Apr, Ulcer of other part of foot L97.509 and DM neuro manif type II E11.49 [place] [address] [place] [id number] [address] [place] [address] Apr, Onychomycosis B35.1 ; Ingrow n toenail L60.0 ; Impaired circulation I99.9 and DM neuro manif type II E11.49 [place] [address] [place] [id number] [address] [place] [address] Mar, Ulcer of other part of foot L97.509 ; Onychomycosis B35.1 and Diabetes mellitus E11.9 [place] [address] [place] [id number] [address] [place] [address] Dec, Encounter for immunization Z 23 ; Hypertension I10 and Diabetes mellitus E11.9 [facility] [address] [facility] [id number] [address] [place] [address] Dec, [facility] [address] [place] [id number] [place] [address] Dec, CAD (coronary artery disease ) I25.10 ; Hypertension I10 ; Left leg claudication I73.9 and Hyperlipidemia E78.5 [facility] [address] [address] Nov, Onychomycosis B35.1 and Vin ertoe M20.40 [facility] [address] [address] Sep, Coronary atherosclerosis of unspecified type of vessel, holy cross or graft 414.00 [place] [address] [address] Sep, Coronary atherosclerosis of unspecified type of vessel, holy cross or graft 414.00 and Diabetes 250.00 [facility] [address] [place] [id number] [address] [place] [address] May, [facility] [address] [place] [id number] [place] [address] May, [facility] [address] [place] [id number] [address] [place] [address] Apr, [facility] [address] [place] [id number] [address] [place] [address] Apr, [facility] [address] [place] [id number] [address] [place] [address] Apr, [facility] [address] [place] [id number] [address] [place] [address] Apr, [facility] [address] [place] [id number] [address] [place] [address] Mar, [facility] [address] [place] [id number] [address] [place] [address] [place] [address] Mar, [facility] [address] [id number] [address] [place] [address], [place] [address] Jan, [facility] [address] [id number] [address] [place] [address], [place] [address] Jan, [facility] [address] [id number] [address] [place] [address], [place] [address] Jan, [facility] [address] [id number] [address] [place] [address], [place] [address] Jan, [facility] [address] [id number] [address] [place] [address], [place] [address] Jan, [facility] [address] [id number] [address] [place] [address], [place] [address] Jan, [facility] [address] [id number] [address] [place] [address], [place] [address] Jan, [facility] [address] [id number] [address] [place] [address], [place] [address] Jan, [facility] [address] [id number] [address] [place] [address], [place] [address] Jan, [facility] [address] [id number] [address] [place] [address], [place] [address] Jan, [facility] [address] [id number] [address] [place] [address], [place] [address] Jan, [facility] [place] [address] [id number] [address] [place] [address], [place] [address] Nov, [facility] [place] [facility] [address] [id number] [address] [place] [address], [place] [address] Nov, [facility] [place] [facility] [address] [id number] [address] [place] [address], [place] [address] Nov, [facility] [address] [id number] [address] [place] [address], [place] [address] Nov, [facility] [place] [facility] [address] [id number] [address] [place] [address], [place] [address] 15 Nov, 2013 [facility] [place] [facility] [address] [id number] [address] [place] [address], [place] [address] 15 Nov, 2013 [facility] [place] [facility] [address] [id number] [address] [place] [address], [place] [address] 19 Oct, 2013 [facility] [place] [address] [id number] [address] [place] [address], [place] [address] 19 Oct, 2013 [facility] [place] [facility] [address] [id number] [address] [place] [address], [place] [address] 19 Oct, 2013 [facility] [place] [facility] [address] [id number] [address] [place] [address], [place] [address] 19 Oct, 2013 [facility] [place] [address] [id number] [address] [place] [address], [place] [address] 05 Oct, 2013 [facility] [place] [facility] [address] [id number] [address] [place] [address], [place] [address] 05 Oct, 2013 [facility] [address] [id number] [address] [place] [address], [place] [address] Sep, [facility] [place] [facility] [address] [id number] [address] [place] [address], [place] [address] Sep, [facility] [place] [address] [id number] [address] [place] [address], [place] [address] Sep, [facility] [place] [address] [id number] [address] [place] [address], [place] [address] Sep, [facility] [place] [address] [id number] [address] [place] [address], [place] [address] Sep, [facility] [place] [address] [id number] [address] [place] [address], [place] [address] Sep, [facility] [place] [facility] [address] [id number] [address] [place] [address], [place] [address] Aug, [facility] [place] [facility] [address] [id number] [address] [place] [address], [place] [address] Aug, [facility] [address] [id number] [facility] [place] [address] Aug, [facility] [place] [facility] [address] [id number] [address] [place] [address], [place] [address] Aug, [facility] [address] [id number] [address] [place] [address], [place] [address] Aug, [facility] [place] [facility] [address] [id number] [address] [place] [address], [place] [address] Aug, [facility] [address] [id number] [address] [place] [address], [place] [address] Jul, [facility] [address] [id number] [address] [place] [address], [place] [address] Jul, [facility] [address] [id number] [address] [place] [address], [place] [address] Jul, [facility] [address] [id number] [address] [place] [address], [place] [address] Jul, [facility] [address] [id number] [address] [place] [address], [place] [address] June, [facility] [address] [id number] [address] [place] [address], [place] [address] June, [facility] [address] [id number] [address] [place] [address], [place] [address] June, [facility] [address] [id number] [address] [place] [address], [place] [address] June, [facility] [place] [address] [id number] [address] [place] [address], [place] [address] May, [facility] [place] [facility] [address] [id number] [address] [place] [address], [place] [address] May, [facility] [place] [facility] [address] [id number] [address] [place] [address], [place] [address] May, [facility] [place] [facility] [address] [id number] [address] [place] [address] May, [facility] [address] [id number] [address] [place] [address], [place] [address] May, [facility] [address] [id number] [address] [place] [address], [place] [address] May, [facility] [address] [id number] [address] [place] [address], [place] [address] Apr, [facility] [address] [id number] [address] [place] [address], [place] [address] Apr, [facility] [address] [id number] [address] [place] [address], [place] [address] Apr, [facility] [address] [id number] [address] [place] [address], [place] [address] Apr, [facility] [address] [id number] [address] [place] [address], [place] [address] Apr, [facility] [address] [id number] [address] [place] [address], [place] [address] Apr, [facility] [address] [id number] [address] [place] [address], [place] [address] Apr, [facility] [address] [id number] [address] [place] [address], [place] [address] Jan, [facility] [address] [id number] [address] [place] [address], [place] [address] Jan, [facility] [address] [id number] [address] [place] [address], [place] [address] Jan, [facility] [address] [id number] [address] [place] [address], [place] [address] Jan, [facility] [address] [id number] [address] [place] [address], [place] [address] Jan, [facility] [address] [id number] [address] [place] [address], [place] [address] Jan, [facility] [address] [id number] [address] [place] [address], [place] [address] Dec, [facility] [address] [id number] [address] [place] [address], [place] [address] Dec, [facility] [address] [id number] [address] [place] [address], [place] [address] Dec, [facility] [address] [id number] [address] [place] [address], [place] [address] Dec, [facility] [address] [id number] [address] [place] [address], [place] [address] Dec, [facility] [address] [id number] [address] [place] [address], [place] [address] Dec, [facility] [address] [id number] [address] [place] [address], [place] [address] Nov, [facility] [address] [id number] [address] [place] [address], [place] [address] Oct, [facility] [address] [id number] [address] [place] [address], [place] [address] Oct, [facility] [address] [id number] [address] [place] [address], [place] [address] Aug, [facility] [address] [id number] [address] [place] [address], [place] [address] Aug, [facility] [address] [id number] [address] [place] [address] Jul, [facility] [place] [address] [id number] [address] [place] [address], [place] [address] June, [facility] [place] [address] [id number] [address] [place] [address], [place] [address] Apr, [facility] [place] [facility] [address] [id number] [address] [place] [address], [place] [address] Apr, [facility] [place] [facility] [address] [id number] [address] [place] [address], [place] [address] 08 Apr, 2012 [facility] [address] [id number] [address] [place] [address], [place] [address] 04 Apr, 2012 [facility] [address] [id number] [address] [place] [address], [place] [address] Mar, [facility] [address] [id number] [address] [place] [address], [place] [address] Jan, [facility] [address] [id number] [address] [place] [address], [place] [address] Jan, [facility] [address] [id number] [address] [place] [address], [place] [address] Jan, [facility] [address] [id number] [address] [place] [address], [place] [address] Jan, [facility] [address] [id number] [address] [place] [address], [place] [address] Jan, [facility] [address] [id number] [address] [place] [address], [place] [address] Jan, [facility] [address] [id number] [address] [place] [address], [place] [address] Jan, [facility] [address] [id number] [address] [place] [address], [place] [address] Jan, [facility] [address] [id number] [address] [place] [address], [place] [address] 16 Dec, 2011 [facility] [address] [id number] [address] [place] [address], [place] [address] 16 Dec, 2011 [facility] [address] [id number] [address] [place] [address], [place] [address] Nov, [facility] [address] [id number] [address] [place] [address], [place] [address] 16 Dec, 2011 [facility] [address] [id number] [address] [place] [address], [place] [address] 17 Nov, 2011 [facility] [address] [id number] [address] [place] [address] Sep, [facility] [address] [id number] [address] [place] [address] 14 Aug, 2011 [facility] [address] [id number] [address] [place] [address] 14 Aug, 2011 [facility] [address] [id number] [address] [place] [address] 14 Aug, 2011 [facility] [address] [id number] [address] [place] [address] 13 Aug, 2011 [facility] [address] [id number] [address] [place] [address] Jul, [facility] [address] [id number] [address] [place] [phone] Apr, [facility] [address] [id number] [address] [place] [phone] 16 Apr, 2011 [facility] [address] [id number] [address] [place] [phone] Apr, [facility] [address] [id number] [address] [place] [phone] Mar, [facility] [address] [id number] [address] [place] [phone] Mar, [facility] [address] [id number] [address] [place] [phone] Dec, [facility] [address] [id number] [address] [place] [phone] Dec, [facility] [address] [id number] [address] [place] [phone] Dec, IMMUNIZATIONS No Known Immunizations SOCIAL HISTORY Never Assessed REASON FOR VISIT repository meds PLAN OF CARE VITAL SIGNS MEDICATIONS Medication Instructions Dosage Frequency Start Date End Date Duration S tatus Naproxen 500 mg TAKE ONE TABLET BY MOUTH TWICE DAILY WITH FOOD Active Simvastatin 20 mg Orally Once a day 1 tablet in the evening 24h Active MetFORMIN HCl ER 500 mg Orally twice a day 500mg QAM/1000mg QPMl 12h Active Plavix 75 MG Orally Once a day 1 tablet 24h Active Metoprolol Tartrate 25 MG Orally Twice a day 1 tablet with food 12h Jul, Active RESULTS No Results PROCEDURES No Known [...]
--- OUTSIDE RECORDS SUMMARY | 2019-06-21 16:37 | XMS REPORT ---
Author Author Nick SEALS [facility] eClinicalWorks Address Unknown Phone Unavailable Care Team Providers Care Associate Professor [employer] Name Role Phone JOSE SEALS CP Unavailable Allergies, Adverse Reactions, Alerts Substance Reaction Event Type Penicillin V Potassium Info Not Available Drug Allergy Problems Problem Type Condition Code Onset Dates Condition Statu s Problem Other hammer toe (acquired) 735.4 Active Problem Chronic airway obstruction, not elsewhere classified 4 96 Active Problem Dermatophytosis of nail 110.1 Acti ve Problem Hypertension I10 Active Problem Left leg claudication I73.9 Active Problem CAD (coronary artery disease) I25.10 Active Problem Reflux esophagitis 530.11 Active Problem Unspecified hereditary and idiopathic peripheral neuro jesse 356.9 Active Problem Hyperlipidemia E78.5 Active Problem Coronary atherosclerosis of unspecified type of vessel, [place] or graft 414.00 Active Assessment Hyperlipidemia E78.5 Active Assessment Left leg claudication I73.9 Active Assessment Hypertension I10 Active Assessment CAD (coronary artery disease) I25.10 Active Medications Medication Code System Code Instructions Start Date End Date Status Dosage Nexium [facility] 91688155442 40 MG TAKE ONE CAP KAROL BY MOUTH ONCE DAILY Simvastatin [facility] [id number] 20 MG TAKE ONE TABLET BY MOUTH ONCE DAILY Aspirin [facility] 47909-64059 81 MG Orally Once a day 1 tablet Lisinopril [facility] [id number] 10 MG TAKE ONE TABLET BY MOUTH ONCE DAILY IN THE MORNING Metoprolol Tartrate [facility] 12214342376 25 MG TAKE ONE TABLET BY MOUTH TWICE DAILY Naproxen [facility] [id number] 500 MG TAKE ONE T ABLET BY MOUTH TWICE DAILY WITH FOOD Neurontin [facility] 39771721373 300 MG TAKE ONE CAPSULE BY MOUTH THREE TIMES DAILY NEEDED FOR PAIN Viagra [facility] [address]-81 50 mg Apr 09, 2012 1 tab let by Oral route 1 time per day Multivitamins [facility] 17297-75302 Orally not d efined Metformin HCl [facility] [id number] 500 MG TAKE ONE TABLET BY MOUTH TWICE DAILY WITH MORNING AND EVENING MEALS FOR DIABETES Procedures Procedure Coding System Code Date Office Visit, Est Pt., Level 4 CPT-4 84651 N 2014 MEASURE BLOOD OXYGEN LEVEL CPT-4 67037 Dec 312014 Vital Signs Date/Time: Jan 10, 2015 Cardiac Monitoring Heart Rate 64 bpm Weight 230 lbs Height 75 in BMI 28.74 Index Oximetry 97 % Blood Pressure Diastolic 82 mmHg Blood Pressure Systolic 126 mmHg Results No Known Results Summary Purpose eClinicalWorks Submission
--- NOTE | 2019-06-21 17:54 | OPERATIVE REPORT ---
DATE OF SERVICE: 06/21/2019 PERIPHERAL ANGIOGRAPHY AND INTERVENTION REPORT The patient is a 64-year-old man who has multiple risk factors for peripheral arterial disease and has known peripheral arterial disease. He has previously had stenting of the left superficial femoral artery and subsequent balloon angioplasty for in-stent restenosis. He now comes in with leg claudication that is limited mostly to the right side. This has compromised his activity. Peripheral angiography was carried out today. Informed consent was obtained for angiography and possible ad hoc intervention, if needed. DESCRIPTION OF PROCEDURE: He was brought to the cardiac catheterization laboratory. The left groin was prepared and draped in the usual sterile fashion. Lidocaine 1% was used for local anesthesia. Modified Seldinger technique was used to advance a 5-Guatem[place] sheath into the left femoral artery. We advanced a 5-[place]atem[place] pigtail catheter to the abdominal aorta and this was dilated at the level of L1 above the origins of the renal arteries from the aorta and abdominal aortic angiography was performed. The catheter was then put down and placed just above the aortoiliac bifurcation. Angiography was carried out with runoff down to the level of the ankles. We then used a crossover catheter to advance a Storq wire into the right superficial femoral artery and the catheter was removed. We used the wire to advance the straight catheter into the right superficial femoral artery (contralateral superficial femoral artery) and selective angiography was performed with runoff down to the level of the ankle on the right side. Subsequently, we used a 0.018 inch wire (Command wire) to negotiate the stenoses in the distal right superficial femoral artery and the tip of the wire was advanced into the trifurcation vessels and we were then able to advance the straight catheter across the lesion in the distal right superficial femoral and the wire was removed. We then performed further selective angiography of the distal arterial tree of the right leg. The catheter was then slowly pulled back across the lesion in the distal right superficial femoral and we found a pressure gradient of at least 30 mmHg on pullback, indicating that the lesion in the distal right superficial femoral was ____ significant. We advanced a Storq wire to the right superficial femoral and was then able to remove the straight catheter and the 5-Guatemalan sheath and replaced this with a 55 cm 6-Guatemalan sheath, the tip of which was placed in the right superficial femoral artery and we subsequently carried out percutaneous intervention to the right superficial femoral artery that was described below. PERCUTANEOUS INTERVENTION TO THE RIGHT SUPERFICIAL FEMORAL ARTERY: We used the sheath to advance a Command wire across the lesion in the distal right superficial femoral artery and the tip was placed in the trifurcation vessels and we then carried out balloon angioplasty at the site of the lesion with a 6.0 x 120 mm balloon that was inflated to 12 atmospheres. Full balloon expansion was obtained and subsequent angiography revealed no significant residual stenosis at the previous site of up to 70% to 80% stenoses. The patient tolerated the procedure well. The guidewire was removed. The long sheath was replaced with a 6-Guatemalan short sheath. We carried out angiography of the left femoral artery through the sheath and use Mynx to achieve hemostasis. He tolerated the procedure well. ABDOMINAL AORTIC ANGIOGRAPHY: Abdominal aortic angiography did not indicate any significant abdominal aortic aneurysm or dissection. The renal arteries were identified. They do not exhibit evidence of any significant stenosis. The aortoiliac bifurcation is intact and does not exhibit significant disease. There is calcification of the aortoiliac bifurcation. BILATERAL LEG ARTERY ANGIOGRAPHY: Bilateral leg artery angiography indicated atherosclerosis and calcification of the aortoiliac bifurcation. The external iliac arteries do not exhibit significant disease. The right internal iliac artery appears to be occluded at its ostium. The left internal iliac artery appears to have 70% ostial stenosis. The external iliac arteries and the common femoral arteries are intact on both sides. On the left side, the superficial femoral artery is extensively stented and is intact. That appears to be up to 50% in-stent restenosis at few spots. There is 3-vessel runoff on the left side. On the right side, there is considerable disease of the superficial femoral ____ selective angiography of the superficial femoral that is described below. SELECTIVE ANGIOGRAPHY OF THE RIGHT SUPERFICIAL FEMORAL ARTERY: Selective angiography of the right superficial femoral artery indicated approximately 70% to 80% distal stenosis. We also performed a pullback, which indicated a pressure gradient of ____ mm across this lesion. Both the ____ ____ reduction of stenosis to less than 10%. Distal circulation with a 3-vessel runoff. CONCLUSIONS: Peripheral arterial disease primarily consisting of up to 80% stenosis in the right superficial femoral artery to which successful balloon angioplasty was carried out with reduction of stenosis to less than 10% residual. Job ID: [id number] DocumentID: [id number] Dictated Date: 06/21/2019 14:17:12 Bottle Feeder Date: 06/21/2019 15:41:15 Dictated By: JOSE SEALS MD, MA, FACP, FACC,
[2019-06-21] MEDS: meTOprolol TARTRATE 25 MG (LOPRESSOR) TABLET PO SCH (20:39)
[2019-06-21] MEDS ORDERED: SIMvastatin 20 MG (ZOCOR) TAB PO SCH (21:00)
[2019-06-22 03:21] VITALS: BP 167/90
[2019-06-22 03:25] LABS: HEMOGLOBIN 13.9 G/DL (13.3-17.7); MEAN PLATELET VOLUME 11.4 FL (7.4-10.4); RED CELL DISTRIBUTION WIDTH 14.6 % (10.0-14.5); WHITE BLOOD COUNT 6.5 10^3/uL (4.3-11.0)
[2019-06-22 03:36] LABS: CHLORIDE 105 MMOL/L (98-107); POTASSIUM 3.9 MMOL/L (3.6-5.0); SODIUM 138 MMOL/L (135-145)
[2019-06-22 03:37] LABS: CALCIUM 8.8 MG/DL (8.5-10.1)
[2019-06-22 03:38] LABS: GLUCOSE 131 MG/DL (70-105)
[2019-06-22 03:39] LABS: CARBON DIOXIDE 21 MMOL/L (21-32)
[2019-06-22 03:42] LABS: BUN/CREATININE RATIO 16; CREATININE SERUM 0.98 MG/DL (0.60-1.30); GFR ESTIMATED > 60
[2019-06-22] MEDS: NS IV 1000 ML 1,000 ML IV SCH ×2 (04:09→05:08)
[2019-06-22] MEDS: inSUlin ASPART (NovoLOG) 1 UNIT/0.01 ML (CHARGE PER UNIT) SC SCH ×2 (05:08→11:21)
[2019-06-22] MEDS ORDERED: MULTIVIT W/MINERALS TAB (THERAGRAN M) PO SCH (07:00)
[2019-06-22 08:00] VITALS: BP 148/85
[2019-06-22] MEDS ORDERED: CALCIUM CARB + VIT D 600 MG (CALCARB + D) TAB PO SCH (08:00)
[2019-06-22] MEDS: meTOprolol TARTRATE 25 MG (LOPRESSOR) TABLET PO SCH (08:58)
[2019-06-22] MEDS ORDERED: CALCIUM CARB PO SCH (09:00)
[2019-06-22] MEDS ORDERED: VIT D3 PO SCH (09:00)
[2019-06-22] MEDS ORDERED: CLOPIDOGREL 75 MG (PLAVIX) TABLET PO SCH (09:00)
[2019-06-22] MEDS ORDERED: PANTOPRAZOLE 40 MG (PROTONIX) TAB PO SCH (09:00)
[2019-06-22] MEDS ORDERED: SERTRALINE 50 MG (ZOLOFT) TABLET PO SCH (09:00)
[2019-06-22] MEDS ORDERED: CITRATE PO SCH (09:00)
[2019-06-22] MEDS ORDERED: NON-FORMULARY MEDICATION 1 EA EA (Esomeprazole Magnesium (Nexium) 40 MG) PO SCH (09:00)
[2019-06-22] MEDS ORDERED: [UNRECOGNIZED DRUG - OTHER] PO SCH (09:00)
[2019-06-22] MEDS ORDERED: ASPIRIN 81 MG CHEW (CHILDREN'S ASA) PO SCH (09:00)
[2019-06-22] MEDS ORDERED: NON-FORMULARY MEDICATION 1 EA EA (Multivitamins (Multiple Vitamin) 1 TAB) PO SCH (09:00)
[2019-06-22] MEDS ORDERED: lisINopril 10 MG (PRINIVIL) TABLET PO SCH (09:00)
--- NOTE | 2019-06-22 13:48 | Cardiology Discharge Summary ---
Diagnosis/Chief Complaint Date of Admission Date of Discharge Discharge Summary Procedures None. Discussion & Recommendations Home Medications Reviewed patient Home Medication Reconciliation performed by pharmacy medication reconciliations product safety technician and/or nursing. Patients Allergies have been reviewed. Discharge Home Medications: Reviewed and agree with Discharge Medication list on patient's Discharge Instruction sheet Instructions to patient/family F/u with Dr Boyce in 2 weeks Hold metformin until the evening of 06/23/19, then resume previous home dose Pat KEEN MD Jun 22, 2019 13:48
== END 2019-06-22 13:30 | disposition home or self-care (01) ==
LOC: CATH 09:07 → ICU 14:25 → CATH 06-22 13:30
PROVIDERS: ATTEND Internal Medicine Cardiovascular Disease
DX: E11.51 Type 2 diabetes mellitus with diabetic peripheral angiopathy without gangrene (principal); I70.213 Atherosclerosis of native arteries of extremities with intermittent claudication, bilateral legs; I77.9 Disorder of arteries and arterioles, unspecified; I25.10 Atherosclerotic heart disease of native coronary artery without angina pectoris; I10 Essential (primary) hypertension; J44.9 Chronic obstructive pulmonary disease, unspecified; E78.00 Pure hypercholesterolemia, unspecified; E78.5 Hyperlipidemia, unspecified; F17.210 Nicotine dependence, cigarettes, uncomplicated; Z88.0 Allergy status to penicillin; Z79.899 Other long term (current) drug therapy; Z79.82 Long term (current) use of aspirin; Z79.02 Long term (current) use of antithrombotics/antiplatelets; Z79.84 Long term (current) use of oral hypoglycemic drugs; Z91.030 Bee allergy status
CPT/HCPCS: 36415; 75625; 75716; 80048; 80053; 80061; 82962; 85027; 85610; 85730; 87081

== ENCOUNTER → 2019-08-22 | Outpatient (CLI) | payer OTHER ==
[~2019-08-22] MED LIST changes: +CALC-794 PO
== END ==
LOC: CARD 13:59
PROVIDERS: ATTEND Internal Medicine Cardiovascular Disease
DX: I08.0 Rheumatic disorders of both mitral and aortic valves (principal); I25.10 Atherosclerotic heart disease of native coronary artery without angina pectoris; I65.29 Occlusion and stenosis of unspecified carotid artery; E11.9 Type 2 diabetes mellitus without complications; I10 Essential (primary) hypertension; I73.9 Peripheral vascular disease, unspecified; E78.5 Hyperlipidemia, unspecified; Z72.0 Tobacco use
CPT/HCPCS: 93306

== ENCOUNTER → 2019-08-23 | Outpatient (CLI) | payer OTHER ==
[~2019-08-23] VITALS: Ht 190.3 cm; Wt 100.0 kg
[~2019-08-23] MED LIST changes: +CATHETER FLUSH 10 ML SYR IV PRN; +REGADENOSON 0.4 MG/5 ML SYR (LEXISCAN) IV ONE
[2019-08-23 09:24] VITALS: BP 130/98
--- NOTE | 2019-08-23 15:02 | STRESS TEST ---
DATE OF SERVICE: 08/23/2019 RESTING AND POST REGADENOSON TECHNETIUM-99M TETROFOSMIN SPECT CT IMAGING ORDERING PHYSICIAN: Dr. Boyce. PRIMARY PHYSICIAN: Dr. Guy. CLINICAL DIAGNOSES: Coronary artery disease, peripheral arterial disease, type 2 diabetes. Baseline images were carried out after injection of 10.5 mCi of technetium-99m Tetrofosmin. This was followed by 0.4 mg regadenoson and 31.7 mCi of technetium-99m Tetrofosmin for stress imaging. The electrocardiogram showed sinus rhythm at baseline. There were isolated premature ventricular contractions. The electrocardiogram did not change significantly with regadenoson infusion. The patient noted mild shortness of breath, which resolved shortly after the completion of the regadenoson infusion. Review of images at rest and following stress does not indicate distinct perfusion defects consistent with significant myocardial ischemia or infarction. Gated images show global left ventricular systolic function appears mildly impaired. Left ventricular ejection fraction is calculated to be 47%. CONCLUSIONS: 1. No evidence of significant myocardial ischemia or infarction on this study. 2. No significant regional wall motion abnormality. 3. Global left ventricular systolic function appears mildly impaired. Left ventricular ejection fraction is calculated to be 47%. Job ID: [id number] DocumentID: [id number] Dictated Date: 08/23/2019 14:51:45 Baby Nurse Date: 08/23/2019 15:01:14 Dictated By: JOSE BOYCE MD, MA, FACP, FACC,
== END ==
LOC: CARD 07:54
PROVIDERS: ATTEND Internal Medicine Cardiovascular Disease
DX: I25.10 Atherosclerotic heart disease of native coronary artery without angina pectoris (principal); I65.29 Occlusion and stenosis of unspecified carotid artery; E11.9 Type 2 diabetes mellitus without complications; I10 Essential (primary) hypertension; E78.5 Hyperlipidemia, unspecified; I73.9 Peripheral vascular disease, unspecified; Z72.0 Tobacco use
CPT/HCPCS: 78452; 93017; A9502

== ENCOUNTER → 2022-06-12 | Outpatient (CLI) | payer MEDICARE, MEDICAID ==
[~2022-06-12] MED LIST changes: +ASPI-1238 PO; -ASPI-983 PO; -CATHETER FLUSH 10 ML SYR IV PRN; +CLOP-31 PO; -CLOP75TA69 PO; -LISI10TA2 PO; +LISI10TA25 PO; -REGADENOSON 0.4 MG/5 ML SYR (LEXISCAN) IV ONE
--- NOTE | 2022-06-12 16:37 | Diagnostic Imaging Report ---
EXAMINATION: Cervical spine 2 or 3 views. HISTORY: Neck pain. COMPARISON: None available. FINDINGS: Vertebral body heights and alignment are normal. There is multilevel cervical spondylosis. Multilevel facet hypertrophy without perched facets. No acute fracture is seen. The prevertebral soft tissues are normal. The odontoid process is intact. IMPRESSION: Degenerative changes of the cervical spine without acute osseous abnormality. Dictated by: Dictated on workstation # [id number]
--- NOTE | 2022-06-12 16:57 | Diagnostic Imaging Report ---
INDICATION: Back pain. COMPARISON: None. FINDINGS: Frontal, lateral, and oblique radiographic views of the lumbar spine were obtained. Alignment and vertebral heights are maintained. There is no fracture or destructive process. Multilevel degenerative disease is noted in the lumbar spine. Limited views of the abdomen demonstrate nonobstructive bowel gas pattern. IMPRESSION: 1. No acute fracture or dislocation of the lumbar spine. 2. Moderate multilevel degenerative changes. Dictated by: Dictated on workstation # [id number]
== END ==
LOC: RAD FS 14:13
PROVIDERS: ATTEND Family Medicine
DX: M47.22 Other spondylosis with radiculopathy, cervical region (principal); M47.26 Other spondylosis with radiculopathy, lumbar region
CPT/HCPCS: 72040; 72110

== ENCOUNTER 2022-08-02 23:18 | Emergency (ER) | payer MEDICARE, MEDICAID ==
[2022-08-02] MEDS ORDERED: KETOROLAC 30 MG/ML VIAL IVP STA (23:24)
[2022-08-02] MEDS ORDERED: ORPHENADRINE 60 MG/2 ML (NORFLEX) AMP (ED ONLY) IVP STA (23:24)
--- NOTE | 2022-08-02 23:32 | ED Back Pain ---
General Chief Complaint: General Problems/Pain Stated Complaint: BACK INJ Source of Information: Patient, EMS History of Present Illness Date Seen by Provider: Aug 02, 2022 Time Seen by Provider: 23:18 Initial Comments 67-year-old male presenting by EMS after having a controlled fall at home. He states that he slid to the floor but did not directly fall. He has been having back pain since the end of April. He states they did x-rays in May and told him that he had degenerative disc disease and arthritis. He has had severe pain and was taking hydrocodone but feels like it was not helping. He is out of the hydrocodone currently. He is scheduled to start physical therapy on to help with his back. He denies losing control of his bowels or bladder. He feels like his legs are weak when he tries to walk. He does have a history of peripheral artery disease with stents in both legs and diabetes as well as COPD. He did receive a total of 6 mg of morphine and 4 mg of Zofran from EMS to help with this pain. On arrival to the ED he states his pain is down to about a 5 out of 10. Location: Lumbar Spine Timing/Duration: 1/2 Hour (Acute worsening of his low back pain since having the controlled fall at home approximately 30 minutes prior to arrival.) Severity: Severe Pain/Injury Location: Back Method of Injury: Fall (Slid to the floor) Modifying Factors: Worse With Movement; Improves With Pain Medication Associated Symptoms: muscle spasms; No fever, No weakness, No numbness in legs/feet; lower back pain; No loss of bladder control, No loss of bowel control Allergies and Home Medications Allergies Coded Allergies: Penicillins (Unverified Allergy, Unknown, 05/06/10) Patient Home Medication List Home Medication List Reviewed: Yes Aspirin (Aspirin) 81 Mg Tab.chew, 81 MG PO DAILY Prescribed by: JOSE SEALS on 08/21/15 1204 Calcium Carb & Citrate/Vit D3 (Calcium + D3 ER Tablet) 1 Each Tablet.er, 1 EACH PO DAILY, (Reported) Entered as Reported by: MANDO PHAM on 06/21/19 1007 Clopidogrel Bisulfate (Plavix) 75 Mg Tablet, 75 MG PO DAILY Prescribed by: JOSE SEALS on 08/21/15 1204 Esomeprazole Magnesium (Nexium) 40 Mg Cap, 40 MG PO DAILY, (Reported) Entered as Reported by: JAMES SMITH on 08/14/15 0916 Gabapentin (Gabapentin) 300 Mg Capsule, 300 MG PO TID PRN for PAIN, (Reported) Entered as Reported by: PARAM GOLDEN on 08/21/15 0816 Lisinopril (Lisinopril) 10 Mg Tablet, 10 MG PO DAILY, (Reported) Entered as Reported by: JAMES SMITH on 08/14/15 0916 Metoprolol Tartrate (Lopressor 25 Mg Tab) 25 Mg Tablet, 25 MG PO BID, (Reported) Entered as Reported by: MIKE CORCORAN on 05/06/10 1319 Multivitamins (Multiple Vitamin) 1 Tab Tablet, 1 TAB PO DAILY, (Reported) Entered as Reported by: MIKE CORCORAN on 05/06/10 131 Sertraline HCl (Zoloft) 50 Mg Tablet, 100 MG PO DAILY, (Reported) Entered as Reported by: BRENDA ASKEW on 04/21/17 0750 Sildenafil Citrate (Viagra) 50 Mg Tablet, 50 MG PO DAILY PRN for ED, (Reported) Entered as Reported by: PARAM GOLDEN on 08/21/15 0816 Simvastatin (Zocor) 20 Mg Tab, 20 MG PO HS, (Reported) Entered as Reported by: MIKE CORCORAN on 05/06/10 1319 Review of Systems Constitutional: No chills, No fever EENTM: no symptoms reported Respiratory: no symptoms reported Cardiovascular: no symptoms reported Genitourinary: no symptoms reported Musculoskeletal: see HPI, back pain Skin: No change in color Psychiatric/Neurological: See HPI; Denies Numbness Past Khzsdvc-Voaoqp-Trepdu Hx Patient Social History Tobacco Use?: No Use of E-Cig and/or Vaping dev: No Substance use?: No Alcohol Use?: No Pt feels they are or have been: No Past Medical History Surgery/Hospitalization HX: COPD, diabetes, degenerative disc disease lumbar spine, hypertension Surgeries: Yes Testicular, Vascular Surgery (Stents to bilateral lower extremities for peripheral artery disease) Respiratory: Yes COPD Cardiac: Yes High Cholesterol, Peripheral Vascular Neurological: No Genitourinary: No Gastrointestinal: Yes Gastroesophageal Reflux Cancer: Yes Testicular What Type of Treatment Did You: Chemotherapy, Surgical Intervention Blood Disorders: No Adverse Reaction/Blood Tranf: No Physical Exam Vital Signs Vital Signs - First Documented 08/02/22 23:18 Pulse 108 Resp 18 B/P (MAP) 131/86 (101) Pulse Ox 98 O2 Delivery Room Air Capillary Refill : Height, Weight, BMI Height: 6'4.00" Weight: 230lbs. 0.0oz. 104.477382wa; 27.61 BMI Method: General Appearance: Chronically ill HEENT: PERRL/EOMI Neck: Normal Inspection, Non Tender, Supple Cardiovascular: Regular Rate, Rhythm, Normal Peripheral Pulses Respiratory: Chest Non Tender, Lungs Clear, Normal Breath Sounds Gastrointestinal: Normal Bowel Sounds, No Pulsatile Mass, Non Tender, Soft Back: Muscle Spasm, Vertebral Tenderness (Lumbar spine tenderness without crepitus or step-off) Extremity: Normal Capillary Refill Neurologic/Psychiatric: Alert, Oriented x3 Skin: Normal Color, Warm/Dry Progress/Results/Core Measures Results/Orders Lab Results Laboratory Tests Test 08/03/22 01:45 Range/Units White Blood Count 6.7 4.3-11.0 10^3/uL Red Blood Count 3.55 L 4.30-5.52 10^6/uL Hemoglobin 9.8 L 13.3-17.7 g/dL Hematocrit 30 L 40-54 % Mean Corpuscular Volume 84 80-99 fL Mean Corpuscular Hemoglobin 28 25-34 pg Mean Corpuscular Hemoglobin Concent 33 32-36 g/dL Red Cell Distribution Width 15.1 H 10.0-14.5 % Platelet Count 133 130-400 10^3/uL Mean Platelet Volume 10.1 9.0-12.2 fL Immature Granulocyte % (Auto) 1 % Neutrophils (%) (Auto) 83 H 42-75 % Lymphocytes (%) (Auto) 10 L 12-44 % Monocytes (%) (Auto) 5 0-12 % Eosinophils (%) (Auto) 1 0-10 % Basophils (%) (Auto) 0 0-10 % Neutrophils # (Auto) 5.5 1.8-7.8 10^3/uL Lymphocytes # (Auto) 0.7 L 1.0-4.0 10^3/uL Monocytes # (Auto) 0.3 0.0-1.0 10^3/uL Eosinophils # (Auto) 0.1 0.0-0.3 10^3/uL Basophils # (Auto) 0.0 0.0-0.1 10^3/uL Immature Granulocyte # (Auto) 0.1 0.0-0.1 10^3/uL Sodium Level 135 135-145 MMOL/L Potassium Level 5.2 H 3.6-5.0 MMOL/L Chloride Level 103 98-107 MMOL/L Carbon Dioxide Level 19 L 21-32 MMOL/L Anion Gap 13 5-14 MMOL/L Blood Urea Nitrogen 39 H 7-18 MG/DL Creatinine 1.03 0.60-1.30 MG/DL Estimat Glomerular Filtration Rate 81 BUN/Creatinine Ratio 38 Glucose Level 158 H 70-105 MG/DL Lactic Acid Level 1.24 0.50-2.00 MMOL/L Calcium Level 9.3 8.5-10.1 MG/DL Corrected Calcium 10.0 8.5-10.1 MG/DL Total Bilirubin 0.3 0.1-1.0 MG/DL Aspartate Amino Transf (AST/SGOT) 34 5-34 U/L Alanine Aminotransferase (ALT/SGPT) 18 0-55 U/L Alkaline Phosphatase 156 H 40-136 U/L C-Reactive Protein 6.60 H <0.50 MG/DL Total Protein 7.2 6.4-8.2 GM/DL Albumin 3.1 L 3.2-4.5 GM/DL My Orders Orders - STANLEY ARMANDO MD Ketorolac Injection (Toradol Injection) (08/02/22 23:24) Orphenadrine Inj (Ed Only) (Norflex Inje (08/02/22 23:24) Ct Lumbar Spine Wo (08/02/22 23:25) Morphine Injection (Morphine Injection (08/03/22 00:42) Cbc With Automated Diff (08/03/22 01:32) Crp Fs (08/03/22 01:32) Blood Culture (08/03/22 01:32) Comprehensive Metabolic Panel (08/03/22 01:32) Lactic Acid Analyzer (08/03/22 01:32) Morphine Injection (Morphine Injection (08/03/22 02:26) Ching Cath (08/03/22 03:34) Vital Signs/I&O 08/02/22 08/03/22 23:18 03:16 Pulse 108 80 Resp 18 18 B/P (MAP) 131/86 (101) 121/64 Pulse Ox 98 95 O2 Delivery Room Air Room Air Progress Progress Note #1: Progress Note Potential diagnosis of lumbar compression fracture, acute on chronic low back pain, lumbar spine muscle spasm, lumbar strain Order Toradol 30 mg IV for pain and inflammation as well as Norflex 60 mg IV for muscle spasms. Obtain CT scan of the lumbar spine to look for acute bony abnormality to account for his worsening pain. Progress Note #2: Progress Note On my personal interpretation and review of his CT scan of the lumbar spine without IV contrast as he appeared to have possible lytic lesion of the lumbar vertebrae. Patient was intermittently crying out in pain so ordered a dose of morphine 4 mg IV in addition to the Toradol and Norflex he already received. Awaiting stat [facility] radiology report. 0118 I spoke with radiologist Dr. Yariel garner MD. He was calling with the CT scan report of the lumbar spine without IV contrast. Concern for discitis with osteomyelitis at level L2-L3. Also noted to have moderate to severe spinal stenosis. He recommended MRI of the lumbar spine to evaluate for possible abscess better definition of area of bony destruction. When reviewing the findings with the patient and his he was having improved pain control with last dose of medication. He continues to be neurologically intact distally. Patient and family request to try and go to [place] for his spinal care. 0135 Call placed to [facility] and got recording to leave a message as the camp coordinator was busy on another line. [address] [facility] and spoke with LIBBY Salomon. She took patient information and will contact Neurosurgeon friction welding machine operator, Dr. Barrera, about the patient. Images were clouded for her review. 0157 LIBBY Salomon, called back from [facility] call and advised me that Dr. Barrera stated she was not friction welding machine operator after Thursday and there would not be spine coverage for possible spinal abscess with Neurosurgery or Orthopedics. 0205 Called back to [place] and reached LIBBY Lieberman. She took information on the patient and will reach out to neurosurgeon friction welding machine operator Dr. Mosley. 0215 Dr. Mosley called back and I gave him brief report on the patient with increasing back pain and no neurodeficits at this point but having severe pain. CT scan of Lumbar spine read out by radiologist as likely Discitis with Osteom yelitis. Concern for needing MRI and possible surgery or IR if he has abscess or needs tissue biopsy to guide antibiotic therapy and treatment. He accepted the patient to the ED for evaluation and treatment. His labs showed he had normal white blood cell count but was anemic with a hemoglobin of 9.8. His comprehensive metabolic profile showed mild elevation of his potassium of 5.2. His lactic acid of 1.24 was not elevated to indicate sepsis however he did have an elevation of his CRP level to 6.6. His alkaline phosphatase was just slightly elevated to 156 as well. This might be an indication some bony destruction as seen on CT scan 0233 Dr. Mosley called back to inform me that they do not have Interventional radiologist this weekend to perform CT guided biopsy if that was needed instead of surgery for abscess. He was still willing to accept the patient to the ED but wanted to let me and the patient know that if MRI shows he need biopsy and IR to perform it rather than go to surgery with Dr. Mosley for spinal abscess then he would have to be transferred again from [place] to a different facility. If they would rather be transferred to a facility that would have all the services available then the patient will have to go to [place]. I went and reviewed the information with patient and . As [facility] did not have the services and specialty care that he might require there it was recommended the go towards [place]. The closest hospital with neurosurgery and spine coverage would be [facility]. and call placed at [phone] to [facility] about possible transfer. I spoke with LIBBY Ji and she took basic information on patient and then connected me with the ED provider, Dr. Jan Patton. I spoke with him about the patient again reviewing that he did not have any acute neurologic deficit. He had no loss of bowel or bladder control. He was having severe pain and what appeared to be discitis with osteomyelitis on CT scan recommendation for MRI and treatment for spinal abscess versus osteomyelitis. He accepted the patient to the emergency department at [facility]. Patient was having ad ditional pain so was given an additional dose of morphine 2 mg IV. This helped him relax and rest. He was not having pain as long as he laid still on the bed. With patient being accepted for ED to ED transfer will send a facesheet and contact EMS for transport. Would have the patient be transported red as he does have a potentially life-threatening concern for spinal abscess. Diagnostic Imaging Diagonstic Imaging: CT Plain Films/CT/US/NM/MRI: other (Lumbar spine) Comments CT scan of the lumbar spine without IV contrast Impression: L2-L3 discitis with osteomyelitis. Likely posterior epidural and paraspinal inflammatory soft tissue. There may be up to moderate to severe spinal stenosis. Recommend gadolinium enhanced MRI of the lumbar spine. Read by Dr. Yariel garner at [phone] and faxed at [phone] Reviewed: Reviewed [place] Study, Reviewed by Me, Discussed w/Radiologist Critical Care Note Critical Care Total Time (minutes) 60 minutes Progress I spent at least 60 minutes in critical care time with the patient. Time excludes separately billable procedures. Time was spent obtaining history from patient, EMS, family, electronic medical record, ordering test and reviewing results, ordering interventions and reviewing response, discussion with consultants, documentation in the chart. Patient was at risk of neurologic compromise and possible loss of limb function to the lower body with findings for possible discitis with osteomyelitis and unknown if he had a spinal abscess. He required my direct and immediate intervention and management to stabilize his condition and arrange transfer to appropriate facility for higher level of care. Departure Impression Primary Impression: Osteomyelitis of vertebra, lumbar region Additional Impressions: Acute exacerbation of chronic low back pain Lumbar paraspinal muscle spasm Discitis of lumbar region Disposition: XFER T-[facility] Condition: Critical Transfer Transfer Reason: Exceeds level of care (needs MRI and spine specialty care) Time Spoke to Accepting Phy: 03:00 Transfer Progress Notes d/w Dr. Jan Patton, ED physician at [facility]. Reviewed labs showing no elevation of WBC and normal Lactic acid but elevated CRP. Neurologically intact at this point but having severe low back pain. Concern for discitis with osteomyelitis on the CT scan of the lumbar spine at L2 and L3. Recommendation for emergent MRI and evaluation for possible spinal abscess. Based on my research of online medical resource of up-to-date since he is not septic they recommend holding antibiotics until tissue sample can be obtained to be more specific in antibiotic coverage. He accepted the patient to the emergency department for further evaluation and treatment. Transfer Facility: [facility] Method of Transfer: EMS Departure-Patient Inst. Referrals: [facility] (PCP) Primary Care Physician STANLEY ARMANDO MD Aug 02, 2022 23:32
[2022-08-03] MEDS ORDERED: morphine INJ 10 MG/ML 1ML (SYR OR VIAL) IVP STA ×2 (00:42→02:26)
[2022-08-03 01:48] LABS: BASOPHILS % (AUTO) 0 % (0-10); EOSINOPHILS # (AUTO) 0.1 10^3/uL (0.0-0.3); EOSINOPHILS % (AUTO) 1 % (0-10); HEMATOCRIT 30 % (40-54); HEMOGLOBIN 9.8 g/dL (13.3-17.7); LYMPHOCYTES # (AUTO) 0.7 10^3/uL (1.0-4.0); LYMPHOCYTES % (AUTO) 10 % (12-44); MEAN CORPUSCULAR HEMOGLOBIN 28 pg (25-34); MEAN CORPUSCULAR HGB CONC 33 g/dL (32-36); MEAN CORPUSCULAR VOLUME 84 fL (80-99); MEAN PLATELET VOLUME 10.1 fL (9.0-12.2); MONOCYTES # (AUTO) 0.3 10^3/uL (0.0-1.0); MONOCYTES % (AUTO) 5 % (0-12); NEUTROPHILS # (AUTO) 5.5 10^3/uL (1.8-7.8); NEUTROPHILS % (AUTO) 83 % (42-75); PLATELET COUNT 133 10^3/uL (130-400); WHITE BLOOD COUNT 6.7 10^3/uL (4.3-11.0)
[2022-08-03 02:09] LABS: ALBUMIN 3.1 GM/DL (3.2-4.5); BILIRUBIN,TOTAL 0.3 MG/DL (0.1-1.0); CALCIUM 9.3 MG/DL (8.5-10.1); CREATININE SERUM 1.03 MG/DL (0.60-1.30); POTASSIUM 5.2 MMOL/L (3.6-5.0); TOTAL PROTEIN 7.2 GM/DL (6.4-8.2)
[2022-08-03 03:16] VITALS: BP 121/64
--- NOTE | 2022-08-03 07:11 | Diagnostic Imaging Report ---
PROCEDURE: CT lumbar spine without contrast. TECHNIQUE: Multiple contiguous axial images were obtained through the lumbar spine without the use of intravenous contrast. Sagittal and coronal reformations were then performed. Auto Exposure Controls were utilized during the CT exam to meet ALARA standards for radiation dose reduction. INDICATION: Low back pain after recent fall. COMPARISON: Plain film 06/12/2022. DISCUSSION: The L2-L3 disc space is now destroyed with the destructive process eroding away the adjacent L2 and L3 vertebral bodies. Again, this is new from the plain film. There is a surrounding soft tissue mass. There is extension into the spinal canal. Findings are most consistent with discitis/osteomyelitis with epidural extension. Epidural abscess cannot be excluded. There is likely severe central canal stenosis secondary to this infectious and inflammatory process. Further evaluation with contrast-enhanced lumbar spine MRI is recommended. Neurosurgical consultation is recommended. No acute fracture. No abnormal subluxation. Underlying degenerative disease is otherwise stable. Atherosclerotic plaques are noted throughout the aorta. Nonobstructing bilateral renal calculi are present. IMPRESSION: 1. Destructive process at the L2-L3 level as described, consistent with osteomyelitis/discitis. There is epidural extension with suspected probable epidural abscess present which contributes to severe central canal stenosis. Surrounding soft tissue inflammation also noted. Recommend surgical consultation and contrast-enhanced MRI to further evaluate. 2. Agree with preliminary report. Dictated by: Dictated on workstation # [id number]
== END 2022-08-03 03:40 | disposition short-term general hospital (02) ==
LOC: EDUNIT# 23:18 → ER FS 23:20
DX: M46.26 Osteomyelitis of vertebra, lumbar region (principal); M46.46 Discitis, unspecified, lumbar region; G89.29 Other chronic pain; M48.061 Spinal stenosis, lumbar region without neurogenic claudication; E87.5 Hyperkalemia; R79.82 Elevated C-reactive protein (CRP); Z28.310 Unvaccinated for COVID-19
CPT/HCPCS: 36415; 51702; 72131; 80053; 83605; 85025; 86141; 87040

== ENCOUNTER → 2022-08-27 | Outpatient (CLI) | payer MEDICARE, MEDICAID ==
[2022-08-27 11:19] LABS: BASOPHILS % (AUTO) 1 % (0-10); EOSINOPHILS # (AUTO) 0.1 10^3/uL (0.0-0.3); EOSINOPHILS % (AUTO) 2 % (0-10); HEMATOCRIT 31 % (40-54); HEMOGLOBIN 9.9 g/dL (13.3-17.7); LYMPHOCYTES % (AUTO) 20 % (12-44); MEAN CORPUSCULAR HEMOGLOBIN 27 pg (25-34); MEAN CORPUSCULAR HGB CONC 32 g/dL (32-36); MEAN CORPUSCULAR VOLUME 82 fL (80-99); MEAN PLATELET VOLUME 10.7 fL (9.0-12.2); MONOCYTES # (AUTO) 0.4 10^3/uL (0.0-1.0); MONOCYTES % (AUTO) 8 % (0-12); NEUTROPHILS # (AUTO) 3.6 10^3/uL (1.8-7.8); NEUTROPHILS % (AUTO) 68 % (42-75); PLATELET COUNT 172 10^3/uL (130-400); WHITE BLOOD COUNT 5.3 10^3/uL (4.3-11.0)
[2022-08-27 11:52] LABS: ALBUMIN 3.3 GM/DL (3.2-4.5); BILIRUBIN,TOTAL 0.4 MG/DL (0.1-1.0); CALCIUM 9.6 MG/DL (8.5-10.1); CREATININE SERUM 1.29 MG/DL (0.60-1.30); POTASSIUM 4.6 MMOL/L (3.6-5.0); TOTAL PROTEIN 6.8 GM/DL (6.4-8.2)
== END ==
PROVIDERS: ATTEND Family Medicine
DX: M46.47 Discitis, unspecified, lumbosacral region (principal)
CPT/HCPCS: 80053; 85025; 86141